=== PATIENT | female | born 1960 | race Caucasian/White ===

== ENCOUNTER 2017-05-06 13:36 | Emergency (ER) | payer BC ==
[~2017-05-06] VITALS: Ht 170.2 cm; Wt 102.1 kg
--- OUTSIDE RECORDS SUMMARY | 2017-05-06 13:46 | XMS REPORT ---
Author Author Yvonne Cassidy [facility] Address [address] [place], [place] [id number] Care Team Providers Care Vocational Ed Instructor Name Role Phone Yvonne Cassidy PCP Allergies and Adverse Reactions Name Reaction Notes Ceftin rash erythromycin rash PENICILLINS rash Plan of Treatment Planned Activity Comments Planned Date Planned Time Plan/Goal IMMUNOTHERAPY INJECTIONS 04/18/2015 12:00 AM IMMUNOTHERAPY INJECTIONS 03/27/2015 12:00 AM IMMUNOTHERAPY INJECTIONS 07/22/2015 12:00 AM IMMUNOTHERAPY INJECTIONS 11/11/2015 12:00 AM ELECTROCARDIOGRAM TRACING 04/23/2016 12:00 AM IMMUNOTHERAPY INJECTIONS 01/05/2012 12:00 AM THER/PROPH/DIAG INJ SC/IM 01/05/2012 12:00 AM IMMUNOTHERAPY INJECTIONS 09/30/2012 12:00 AM IMMUNOTHERAPY INJECTIONS 10/04/2012 12:00 AM IMMUNOTHERAPY INJECTIONS 10/11/2012 12:00 AM IMMUNOTHERAPY INJECTIONS 10/17/2012 12:00 AM IMMUNOTHERAPY INJECTIONS 10/18/2012 12:00 AM IMMUNOTHERAPY INJECTIONS 10/25/2012 12:00 AM IMMUNOTHERAPY INJECTIONS 11/01/2012 12:00 AM IMMUNOTHERAPY INJECTIONS 11/08/2012 12:00 AM IMMUNOTHERAPY INJECTIONS 11/15/2012 12:00 AM IMMUNOTHERAPY INJECTIONS 11/22/2012 12:00 AM IMMUNOTHERAPY INJECTIONS 12/06/2012 12:00 AM IMMUNOTHERAPY INJECTIONS 12/06/2012 12:00 AM IMMUNOTHERAPY INJECTIONS 12/20/2012 12:00 AM IMMUNOTHERAPY INJECTIONS 12/20/2012 12:00 AM IMMUNOTHERAPY INJECTIONS 01/12/2013 12:00 AM IMMUNOTHERAPY INJECTIONS 01/17/2013 12:00 AM IMMUNOTHERAPY INJECTIONS 01/24/2013 12:00 AM IMMUNOTHERAPY INJECTIONS 01/31/2013 12:00 AM IMMUNOTHERAPY INJECTIONS 02/06/2013 12:00 AM IMMUNOTHERAPY INJECTIONS 02/21/2013 12:00 AM IMMUNOTHERAPY INJECTIONS 03/02/2013 12:00 AM IMMUNOTHERAPY INJECTIONS 03/07/2013 12:00 AM IMMUNOTHERAPY INJECTIONS 03/09/2013 12:00 AM IMMUNOTHERAPY INJECTIONS 03/13/2013 12:00 AM IMMUNOTHERAPY INJECTIONS 03/21/2013 12:00 AM IMMUNOTHERAPY INJECTIONS 03/28/2013 12:00 AM IMMUNOTHERAPY INJECTIONS 04/04/2013 12:00 AM IMMUNOTHERAPY INJECTIONS 04/18/2013 12:00 AM IMMUNOTHERAPY INJECTIONS 05/01/2013 12:00 AM IMMUNOTHERAPY INJECTIONS 05/09/2013 12:00 AM IMMUNOTHERAPY INJECTIONS 05/15/2013 12:00 AM IMMUNOTHERAPY INJECTIONS 05/23/2013 12:00 AM IMMUNOTHERAPY INJECTIONS 05/30/2013 12:00 AM IMMUNOTHERAPY INJECTIONS 06/07/2013 12:00 AM dizziness IMMUNOTHERAPY INJECTIONS 02/27/2014 12:00 AM IMMUNOTHERAPY INJECTIONS 08/01/2014 12:00 AM IMMUNOTHERAPY INJECTIONS 10/15/2014 12:00 AM IMMUNOTHERAPY INJECTIONS 08/23/2014 12:00 AM IMMUNOTHERAPY INJECTIONS 09/06/2014 12:00 AM IMMUNOTHERAPY INJECTIONS 10/29/2014 12:00 AM IMMUNOTHERAPY INJECTIONS 11/05/2014 12:00 AM IMMUNOTHERAPY INJECTIONS 11/12/2014 12:00 AM IMMUNOTHERAPY INJECTIONS 11/19/2014 12:00 AM IMMUNOTHERAPY INJECTIONS 11/28/2014 12:00 AM IMMUNOTHERAPY INJECTIONS 12/13/2014 12:00 AM IMMUNOTHERAPY INJECTIONS 12/17/2014 12:00 AM IMMUNOTHERAPY INJECTIONS 12/24/2014 12:00 AM IMMUNOTHERAPY INJECTIONS 12/31/2014 12:00 AM IMMUNOTHERAPY INJECTIONS 01/07/2015 12:00 AM IMMUNOTHERAPY INJECTIONS 01/15/2015 12:00 AM IMMUNOTHERAPY INJECTIONS 01/21/2015 12:00 AM IMMUNOTHERAPY INJECTIONS 01/28/2015 12:00 AM IMMUNOTHERAPY INJECTIONS 02/04/2015 12:00 AM IMMUNOTHERAPY INJECTIONS 02/18/2015 12:00 AM IMMUNOTHERAPY INJECTIONS 02/25/2015 12:00 AM IMMUNOTHERAPY INJECTIONS 03/04/2015 12:00 AM IMMUNOTHERAPY INJECTIONS 03/19/2015 12:00 AM Medications Active Name Start Date Estimated Completion Date SIG Comments meloxicam 15 mg oral tablet 08/21/2014 TAKE 1 TABLET BY MOUTH ONCE DAILY triamcinolone acetonide 55 mcg nasal aerosol,spray 11/14/2014 USE 1-2 SPRAYS BY NASAL ROUTE DAILY for 30 days meloxicam 15 mg oral tablet 01/31/2015 TAKE 1 TABLET BY MOUTH ONCE DAILY triamcinolone acetonide 55 mcg nasal aerosol,spray 04/01/2015 USE 1 TO 2 SPRAYS INTO EACH NOSTRIL DAILY bupropion HCl 300 mg oral tablet extended release 24 hr 06/03/2015 TAKE 1 TABLET BY MOUTH EVERY DAY for 30 days ProAir HFA 90 mcg/actuation inhalation HFA aerosol inhaler 07/03/2015 INHALE 1 TO 2 PUFFS BY MOUTH EVERY 4 TO 6 HOURS NEEDED meloxicam 15 mg oral tablet 07/03/2015 TAKE 1 TABLET BY MOUTH ONCE DAILY meloxicam 15 mg oral tablet 12/09/2015 TAKE 1 TABLET BY MOUTH ONCE DAILY atenolol 25 mg oral tablet 02/12/2016 08/10/2016 take 1 tablet (25 mg) by oral route once daily for 30 days Saxenda 3 mg/0.5 mL (18 mg/3 mL) subcutaneous pen injector 02/20/2016 Inject 0.6mg daily for 1 week, then 1.2 mg daily for 1 week, then 1.8mg daily for 1 week, then 2.4 mg daily for 1 week, then 3mg daily there after, into abdomen, thigh Zyrtec-D 5-120 mg oral tablet extended release 12 hr 04/01/2016 take 1 tablet by oral route 2 times per day Singulair 10 mg oral tablet 04/23/2016 take 1 tablet (10 mg) by oral route once daily in the evening Synthroid 150 mcg oral tablet 04/27/2016 06/26/2016 TAKE 1 TABLET BY MOUTH ONCE DAILY Name Start Date Expiration Date SIG Comments hydrochlorothiazide 12.5 mg oral capsule 02/09/2011 03/11/2011 TAKE 1 CAPSULE BY MOUTH EVERY DAY Zithromax Z-Jonas 250 mg oral tablet 07/21/2011 07/26/2011 Take 2 tablets the first day (500 mg) followed by 1 tablet (250 mg) days 2-5. for 5 days Bactrim DS 800-160 mg oral tablet 09/08/2011 09/15/2011 take 1 tablet by oral route every 12 hours for 7 days Ocella 3-0.03 mg oral tablet 11/12/2011 12/10/2011 TAKE 1 TABLET BY MOUTH EVERY DAY Zithromax Z-Jonas 250 mg oral tablet 02/13/2013 02/18/2013 take 2 tablets (500 mg ) by oral route once daily for 1 day then 1 tablet (250 mg) by oral route once daily for 4 days Polytrim 10,000 unit- 1 mg/mL ophthalmic drops 02/13/2013 02/20/2013 instill 1 drop into affected eye(s) by ophthalmic route every 6 hours for 7 days bupropion HCl 300 mg oral tablet extended release 24 hr 05/03/20132012 TAKE 1 TABLET BY MOUTH EVERY DAY triamcinolone acetonide 55 mcg nasal aerosol,spray 06/19/2013 07/19/2013 USE 1- 2 SPRAYS BY NASAL ROUTE DAILY triamcinolone acetonide 55 mcg nasal aerosol,spray 04/11/2014 08/09/2014 USE 1 -2 SPRAYS BY NASAL ROUTE DAILY for 30 days bupropion HCl 300 mg oral tablet extended release 24 hr 05/16/20142014 TAKE 1 TABLET BY MOUTH EVERY DAY for 30 days Synthroid 175 mcg oral tablet 05/16/2014 05/11/2015 TAKE 1 TABLET BY MOUTH ONCE DAILY hydrochlorothiazide 12.5 mg oral capsule 09/19/2014 01/17/2015 take 1 capsule ( 12.5 mg) by oral route once daily for 30 days Neoprene 1 ankle brace 09/19/2014 10/03/2014 Wearing daily when ambulating promethazine-codeine 6.25-10 mg/5 mL oral syrup 10/02/2015 10/07/2015 take 5 milliliters by oral route every 6 hours as needed, not to exceed 30 mL in 24 hours for 5 days cyclobenzaprine 10 mg oral tablet 10/02/2015 10/07/2015 take 1 tablet by oral route 3 times a day as needed for 5 days Discontinued Name Start Date Discontinued Date SIG Comments promethazine-codeine 6.25-10 mg/5 mL oral syrup 07/21/2011 08/21/2011 take 5 milliliters by oral route every 6 hours as needed, not to exceed 30 mL in 24 hours Medrol (Jonas) 4 mg oral tablets,dose pack 08/06/2011 08/21/2011 take as directed promethazine-codeine 6.25-10 mg/5 mL oral syrup 09/08/2011 06/01/2012 take 5 milliliters by oral route every 4-6 hours as needed, not to exceed 30 mL in 24 hours Generess Fe 0.8mg-25mcg(24) and 75 mg (4) oral tablet,chewable 06/01/2012 chew 1 tablet by oral route once daily lisinopril 10 mg oral tablet 06/14/2013 06/14/2013 TAKE 1 TABLET BY MOUTH EVERY DAY uses mobic daily tramadol 50 mg oral tablet 08/19/2013 09/08/2013 take 1 tablet (50 mg) by oral route every 4-6 hours as needed Exforge HCT 5-160-12.5 mg oral tablet 10/10/2013 02/07/2014 take 1 tablet by oral route once daily for 30 days meloxicam 15 mg oral tablet 01/01/2014 05/09/2014 TAKE 1 TABLET BY MOUTH ONCE DAILY oxybutynin chloride 5 mg oral tablet extended release 24hr 08/22/2014 take 1 tablet (5 mg) by oral route once daily Claritin-D 24 Hour 10-240 mg oral tablet extended release 24 hr 08/23/20142014 take 1 tablet by oral route once daily amlodipine 5 mg oral tablet 06/19/2014 09/19/2014 take 1 tablet (5 mg) by oral route once daily for 30 days ProAir HFA 90 mcg/actuation inhalation HFA aerosol inhaler 08/16/20142014 INHALE 1 TO 2 PUFFS BY MOUTH EVERY 4 TO 6 HOURS NEEDED Percocet 5-325 mg oral tablet 08/22/2014 09/13/2014 take 1 tablet by oral route every 4-6 hours as needed phentermine 37.5 mg oral tablet 01/08/2016 02/12/2016 take 1 tablet (37.5 mg) by oral route once daily before breakfast Qsymia 7.5-46 mg oral capsule, ER multiphase 24 hr 02/13/2016 02/20/2016 take 1 capsule by oral route once daily in the morning for 30 days prednisone 20 mg oral tablet 03/04/2016 04/01/2016 take 1 tablet by oral route daily Problem List Description Status Onset Asthma Active Hypertension Active hypothyroid Active Vitamin D deficiency Active Hypothyroidism Active 05/18/2013 Stress incontinence, female Active 05/18/2013 Urge incontinence Active 05/18/2013 Breast Lump, right Active 12/31/2014 Vital Signs Date Time BP-Sys(mm[Hg] BP-Karina(mm[Hg]) HR(bpm) RR(rpm) Temp WT HT HC BMI BSA BMI Percentile O2 Sat(%) 04/23/2016 2:16:00 PM 128 mmHg 76 mmHg 80 bpm 18 rpm 97.3 F 207.6 lbs 66.5 in 33.01 kg/m2 2.10 m2 97 % 04/01/2016 9:47:00 AM 126 mmHg 72 mmHg 84 bpm 18 rpm 97.9 F 209.5 lbs 66.5 in 33.3073 kg/m 2.1116 m 97 % 03/04/2016 2:48:00 PM 142 mmHg 84 mmHg 80 bpm 19 rpm 98.4 F 226.2 lbs 66.5 in 35.96 kg/m2 2.19 m2 97 % 02/12/2016 3:02:00 PM 132 mmHg 72 mmHg 71 bpm 18 rpm 97.8 F 214.375 lbs 66.5 in 34.0823 kg/m 2.136 m 98 % 01/08/2016 3:21:00 PM 132 mmHg 74 mmHg 68 bpm 18 rpm 97.4 F 222.062 lbs 66.5 in 35.30 kg/m2 2.17 m2 100 % 12/02/2015 3:06:00 PM 102 mmHg 72 mmHg 11/29/2015 3:32:00 PM 120 mmHg 70 mmHg 69 bpm 98 % 11/28/2015 4:07:00 PM 140 mmHg 84 mmHg 11/27/2015 2:47:00 PM 142 mmHg 88 mmHg 72 bpm 18 rpm 97.7 F 230 lbs 66.5 in 36.57 kg/m2 2.21 m2 98 % 11/25/2015 11:26:00 AM 160 mmHg 90 mmHg 75 bpm 16 rpm 97.6 F 241 lbs 66.5 in 38.3153 kg/m 2.2647 m 97 % 10/29/2015 3:44:00 PM 122 mmHg 86 mmHg 67 bpm 19 rpm 96.7 F 243 lbs 66.5 in 38.63 kg/m2 2.27 m2 99 % 10/02/2015 3:29:00 PM 150 mmHg 80 mmHg 71 bpm 16 rpm 97 F 247 lbs 66.5 in 39.2692 kg/m 2.2928 m 99 % 05/29/2015 3:21:00 PM 146 mmHg 71 mmHg 66 bpm 98.5 F 236 lbs 66.5 in 37.52 kg/m2 2.24 m2 03/19/2015 3:36:00 PM 130 mmHg 72 mmHg 77 bpm 20 rpm 97.5 F 238.8 lbs 66.5 in 37.9655 kg/m 2.2544 m 98 % 12/31/2014 3:30:00 PM 136 mmHg 68 mmHg 62 bpm 16 rpm 98 F 231 lbs 66.5 in 36.73 kg/m2 2.22 m2 99 % 10/11/2014 3:45:00 PM 132 mmHg 77 mmHg 66 bpm 97.6 F 233.375 lbs 66.5 in 37.103 kg/m 2.2286 m 09/19/2014 11:11:00 AM 136 mmHg 78 mmHg 88 bpm 18 rpm 98.3 F 233 lbs 66.5 in 37.04 kg/m2 2.23 m2 99 % 09/13/2014 4:12:00 PM 170 mmHg 80 mmHg 92 bpm 98.4 F 231.375 lbs 66.5 in 36.7851 kg/m 2.2191 m 99 % 08/22/2014 3:08:00 PM 143 mmHg 82 mmHg 71 bpm 97.6 F 237 lbs 66.5 in 37.68 kg/m2 2.25 m2 98 % 05/09/2014 3:24:00 PM 152 mmHg 87 mmHg 88 bpm 96.6 F 233.375 lbs 66.5 in 37.103 kg/m 2.2286 m 04/30/2014 3:40:00 PM 138 mmHg 72 mmHg 78 bpm 181 rpm 98.7 F 235 lbs 66.5 in 37.36 kg/m2 2.24 m2 97 % 02/13/2014 2:37:00 PM 149 mmHg 86 mmHg 80 bpm 97.9 F 226.25 lbs 66.5 in 35.9703 kg/m 2.1943 m 02/07/2014 3:54:00 PM 154 mmHg 81 mmHg 80 bpm 97.8 F 226.5 lbs 66.5 in 36.01 kg/m2 2.20 m2 09/18/2013 9:51:00 AM 130 mmHg 70 mmHg 86 bpm 16 rpm 96.8 F 227 lbs 66.5 in 36.0895 kg/m 2.198 m 97 % 09/08/2013 1:02:00 PM 148 mmHg 80 mmHg 91 bpm 98 F 230.375 lbs 66.5 in 36.63 kg/m2 2.21 m2 08/18/2013 6:04:00 PM 122 mmHg 80 mmHg 75 bpm 22 rpm 98.5 F 232 lbs 66.5 in 36.8844 kg/m 2.2221 m 96 % 06/14/2013 1:40:00 PM 118 mmHg 75 mmHg 88 bpm 18 rpm 98.4 F 228 lbs 66.5 in 36.25 kg/m2 2.20 m2 97 % 06/07/2013 4:13:00 PM 130 mmHg 82 mmHg 81 bpm 96.8 F 06/02/2013 9:07:00 AM 143 mmHg 77 mmHg 82 bpm 97.9 F 06/01/2013 1:45:00 PM 145 mmHg 86 mmHg 95 bpm 97.5 F 232 lbs 67 in 36.336 kg/m 2.2304 m 99 % 05/18/2013 2:06:00 PM 165 mmHg 94 mmHg 84 bpm 98 F 222.25 lbs 67 in 34.81 kg/m2 2.18 m2 02/13/2013 9:30:00 AM 130 mmHg 80 mmHg 90 bpm 20 rpm 97.9 F 229 lbs 67.5 in 35.3367 kg/m 2.2242 m 97 % 06/01/2012 3:21:00 PM 120 mmHg 70 mmHg 86 bpm 16 rpm 99.2 F 224.125 lbs 97 % 11/27/2011 11:10:00 AM 136 mmHg 80 mmHg 99 bpm 16 rpm 96.7 F 219 lbs 98 % 09/08/2011 8:28:00 AM 128 mmHg 64 mmHg 68 bpm 18 rpm 98.1 F 218.5 lbs 67.5 in 33.72 kg/m2 2.17 m2 08/21/2011 8:32:00 AM 122 mmHg 80 mmHg 79 bpm 16 rpm 97.8 F 219.25 lbs 67.5 in 33.8322 kg/m 2.1763 m 99 % 08/06/2011 3:46:00 PM 122 mmHg 80 mmHg 88 bpm 20 rpm 97.4 F 218 lbs 67.5 in 33.64 kg/m2 2.17 m2 07/21/2011 9:52:00 AM 142 mmHg 70 mmHg 111 bpm 16 rpm 96.6 F 216 lbs 96 % 03/30/2011 3:52:00 PM 140 mmHg 88 mmHg 97 bpm 16 rpm 97.9 F 210 lbs 97 % 02/25/2011 1:44:00 PM 148 mmHg 86 mmHg 87 bpm 16 rpm 98 F 213 lbs 67.5 in 32.8678 kg/m 2.1451 m 98 % 12/30/2010 11:22:00 AM 162 mmHg 100 mmHg 107 bpm 16 rpm 97.4 F 98 % 11/12/2010 3:33:00 PM 136 mmHg 84 mmHg 88 bpm 16 rpm 97.5 F 213 lbs 98 % 06/03/2010 10:50:00 AM 140 mmHg 85 mmHg 83 bpm 98 F 220.125 lbs 05/26/2010 3:29:00 PM 122 mmHg 88 mmHg 88 bpm 16 rpm 97.4 F 222.375 lbs 11/07/2009 2:49:00 PM 130 mmHg 84 mmHg 70 bpm 16 rpm 98.4 F 222 lbs 67.5 in 34.26 kg/m2 2.19 m2 Social History Name Description Comments Attended some college Alcohol Use - Rare Denies illicit substance abuse Moderate Amount of Exercise (1-3 times weekly) Health care Did not serve in Children Lives with spouse Tobacco Never smoker 01/08/2016 - History of Procedures Date Ordered Description Order Status 04/09/2015 12:00 AM IMMUNOTHERAPY INJECTIONS Reviewed 04/23/2015 12:00 AM IMMUNOTHERAPY INJECTIONS Reviewed 03/25/2011 12:00 AM IMMUNOTHERAPY INJECTIONS Reviewed 04/30/2015 12:00 AM IMMUNOTHERAPY INJECTIONS Reviewed 05/09/2015 12:00 AM IMMUNIZATION ADMIN Reviewed 05/09/2015 12:00 AM FLU VACC 4 SONDRA 3 YRS PLUS IM Reviewed 04/02/2011 12:00 AM IMMUNOTHERAPY INJECTIONS Reviewed 05/14/2015 12:00 AM IMMUNOTHERAPY INJECTIONS Reviewed 04/08/2011 12:00 AM IMMUNOTHERAPY INJECTIONS Reviewed 05/29/2015 12:00 AM IMMUNOTHERAPY INJECTIONS Reviewed 06/12/2015 12:00 AM MAMMOGRAM SCREENING Returned 05/29/2015 12:00 AM CYTOPATH TBS C/V MANUAL Returned 05/29/2015 12:00 AM ASSAY THYROID STIM HORMONE Returned 05/29/2015 12:00 AM LIPID PANEL Returned 05/29/2015 12:00 AM MAMMOGRAM BOTH BREASTS Reviewed 05/29/2015 12:00 AM SPECIMEN HANDLING OFFICE-LAB Reviewed 05/29/2015 12:00 AM BIOPSY OF VAGINA Returned 06/04/2015 12:00 AM IMMUNOTHERAPY INJECTIONS Reviewed 04/15/2011 12:00 AM IMMUNOTHERAPY INJECTIONS Reviewed 06/10/2015 12:00 AM IMMUNOTHERAPY INJECTIONS Reviewed 06/17/2015 12:00 AM IMMUNOTHERAPY INJECTIONS Reviewed 06/26/2015 12:00 AM IMMUNOTHERAPY INJECTIONS Reviewed 07/01/2015 12:00 AM IMMUNOTHERAPY INJECTIONS Reviewed 07/09/2015 12:00 AM IMMUNOTHERAPY INJECTIONS Reviewed 04/29/2011 12:00 AM IMMUNOTHERAPY INJECTIONS Reviewed 07/29/2015 12:00 AM IMMUNOTHERAPY INJECTIONS Reviewed 05/06/2011 12:00 AM IMMUNOTHERAPY INJECTIONS Reviewed 08/14/2015 12:00 AM IMMUNOTHERAPY INJECTIONS Reviewed 08/19/2015 12:00 AM IMMUNOTHERAPY INJECTIONS Reviewed 05/14/2011 12:00 AM IMMUNOTHERAPY INJECTIONS Reviewed 05/20/2011 12:00 AM IMMUNOTHERAPY INJECTIONS Reviewed 09/05/2015 12:00 AM IMMUNOTHERAPY INJECTIONS Reviewed 09/11/2015 12:00 AM IMMUNOTHERAPY INJECTIONS Reviewed 05/27/2011 12:00 AM IMMUNOTHERAPY INJECTIONS Reviewed 06/03/2011 12:00 AM IMMUNOTHERAPY INJECTIONS Reviewed 10/01/2015 12:00 AM IMMUNOTHERAPY INJECTIONS Reviewed 06/09/2011 12:00 AM IMMUNOTHERAPY INJECTIONS Reviewed 10/09/2015 12:00 AM IMMUNOTHERAPY INJECTIONS Reviewed 10/15/2015 12:00 AM IMMUNOTHERAPY INJECTIONS Reviewed 06/17/2011 12:00 AM IMMUNOTHERAPY INJECTIONS Reviewed 10/21/2015 12:00 AM IMMUNOTHERAPY INJECTIONS Reviewed 10/28/2015 12:00 AM IMMUNOTHERAPY INJECTIONS Reviewed 11/04/2015 12:00 AM IMMUNOTHERAPY INJECTIONS Reviewed 11/18/2015 12:00 AM IMMUNOTHERAPY INJECTIONS Reviewed 07/07/2011 12:00 AM IMMUNOTHERAPY INJECTIONS Reviewed 11/27/2015 12:00 AM IMMUNOTHERAPY INJECTIONS Reviewed 11/25/2015 12:00 AM RADEX WRIST COMPLETE MINIMUM 3 VIEWS Returned 12/02/2015 12:00 AM IMMUNOTHERAPY INJECTIONS Reviewed 12/09/2015 12:00 AM IMMUNOTHERAPY INJECTIONS Reviewed 07/16/2011 12:00 AM IMMUNOTHERAPY INJECTIONS Reviewed 07/16/2011 12:00 AM IMMUNOTHERAPY INJECTIONS Reviewed 12/25/2015 12:00 AM IMMUNOTHERAPY INJECTIONS Reviewed 07/28/2011 12:00 AM IMMUNOTHERAPY INJECTIONS Reviewed 11/29/2015 12:00 AM Blood Pressure Check-no charge Reviewed 01/15/2016 12:00 AM IMMUNOTHERAPY INJECTIONS Reviewed 08/06/2011 12:00 AM THER/PROPH/DIAG INJ SC/IM Reviewed 08/06/2011 12:00 AM IMMUNOTHERAPY INJECTIONS Reviewed 01/27/2016 12:00 AM IMMUNOTHERAPY INJECTIONS Reviewed 08/12/2011 12:00 AM IMMUNOTHERAPY INJECTIONS Reviewed 02/12/2016 12:00 AM IMMUNOTHERAPY INJECTIONS Reviewed 02/19/2016 12:00 AM IMMUNOTHERAPY INJECTIONS Reviewed 08/21/2011 12:00 AM THER/PROPH/DIAG INJ SC/IM Reviewed 08/21/2011 12:00 AM Depo-Medrol 40 mg [facility]#[id number] Reviewed 03/02/2016 12:00 AM IMMUNOTHERAPY INJECTIONS Reviewed 03/06/2016 12:00 AM IMMUNOTHERAPY INJECTIONS Reviewed 03/11/2016 12:00 AM IMMUNOTHERAPY INJECTIONS Reviewed 03/17/2016 12:00 AM IMMUNOTHERAPY INJECTIONS Reviewed 09/08/2011 12:00 AM IMMUNOTHERAPY INJECTIONS Reviewed 03/26/2016 12:00 AM IMMUNOTHERAPY INJECTIONS Reviewed 04/01/2016 12:00 AM IMMUNOTHERAPY INJECTIONS Reviewed 04/07/2016 12:00 AM IMMUNOTHERAPY INJECTIONS Reviewed 04/13/2016 12:00 AM IMMUNOTHERAPY INJECTIONS Reviewed 04/23/2016 12:00 AM IMMUNOTHERAPY INJECTIONS Reviewed 04/23/2016 12:00 AM COMPLETE CBC W/AUTO DIFF WBC Returned 04/23/2016 12:00 AM COMPREHEN METABOLIC PANEL Returned 04/23/2016 12:00 AM LIPID PANEL Returned 04/23/2016 12:00 AM ASSAY THYROID STIM HORMONE Returned 04/23/2016 12:00 AM MRI BRAIN STEM W/O & W/DYE Returned 09/24/2011 12:00 AM IMMUNOTHERAPY INJECTIONS Reviewed 09/24/2011 12:00 AM IMMUNOTHERAPY INJECTIONS Reviewed 09/24/2011 12:00 AM IMMUNOTHERAPY INJECTIONS Reviewed 04/29/2016 12:00 AM IMMUNOTHERAPY INJECTIONS Reviewed 10/01/2011 12:00 AM IMMUNOTHERAPY INJECTIONS Reviewed 10/06/2011 12:00 AM IMMUNOTHERAPY INJECTIONS Reviewed 10/13/2011 12:00 AM IMMUNOTHERAPY INJECTIONS Reviewed 10/20/2011 12:00 AM IMMUNOTHERAPY INJECTIONS Reviewed 10/29/2011 12:00 AM IMMUNOTHERAPY INJECTIONS Reviewed 11/03/2011 12:00 AM IMMUNOTHERAPY INJECTIONS Reviewed 11/10/2011 12:00 AM IMMUNOTHERAPY INJECTIONS Reviewed 11/17/2011 12:00 AM IMMUNOTHERAPY INJECTIONS Reviewed 11/27/2011 12:00 AM THER/PROPH/DIAG INJ SC/IM Reviewed 11/27/2011 12:00 AM Depo-Medrol 40 mg [facility]#[id number] Reviewed 12/01/2011 12:00 AM IMMUNOTHERAPY INJECTIONS Reviewed 12/08/2011 12:00 AM IMMUNOTHERAPY INJECTIONS Reviewed 12/18/2011 12:00 AM IMMUNOTHERAPY INJECTIONS Reviewed 12/22/2011 12:00 AM IMMUNOTHERAPY INJECTIONS Reviewed 12/29/2011 12:00 AM IMMUNOTHERAPY INJECTIONS Reviewed 01/12/2012 12:00 AM IMMUNOTHERAPY INJECTIONS Reviewed 01/26/2012 12:00 AM IMMUNOTHERAPY INJECTIONS Reviewed 02/02/2012 12:00 AM IMMUNOTHERAPY INJECTIONS Reviewed 02/08/2012 12:00 AM IMMUNOTHERAPY INJECTIONS Reviewed 02/15/2012 12:00 AM IMMUNOTHERAPY INJECTIONS Reviewed 02/25/2012 12:00 AM IMMUNOTHERAPY INJECTIONS Reviewed 03/01/2012 12:00 AM IMMUNOTHERAPY INJECTIONS Reviewed 03/01/2012 12:00 AM IMMUNOTHERAPY INJECTIONS Reviewed 03/08/2012 12:00 AM IMMUNOTHERAPY INJECTIONS Reviewed 03/15/2012 12:00 AM IMMUNOTHERAPY INJECTIONS Reviewed 03/22/2012 12:00 AM IMMUNOTHERAPY INJECTIONS Reviewed 03/29/2012 12:00 AM IMMUNOTHERAPY INJECTIONS Reviewed 04/05/2012 12:00 AM IMMUNOTHERAPY INJECTIONS Reviewed 04/21/2012 12:00 AM IMMUNOTHERAPY INJECTIONS Reviewed 04/26/2012 12:00 AM IMMUNOTHERAPY INJECTIONS Reviewed 05/03/2012 12:00 AM IMMUNOTHERAPY INJECTIONS Reviewed 05/10/2012 12:00 AM IMMUNOTHERAPY INJECTIONS Reviewed 05/17/2012 12:00 AM IMMUNOTHERAPY INJECTIONS Reviewed 05/18/2012 12:00 AM IMMUNOTHERAPY INJECTIONS Reviewed 05/24/2012 12:00 AM IMMUNOTHERAPY INJECTIONS Reviewed 06/01/2012 12:00 AM CYTOPATH C/V MANUAL Returned 06/01/2012 12:00 AM SMEAR WET MOUNT SALINE/INK Returned 06/07/2012 12:00 AM IMMUNOTHERAPY INJECTIONS Reviewed 06/14/2012 12:00 AM IMMUNOTHERAPY INJECTIONS Reviewed 06/21/2012 12:00 AM IMMUNOTHERAPY INJECTIONS Reviewed 07/13/2012 12:00 AM IMMUNOTHERAPY INJECTIONS Reviewed 07/26/2012 12:00 AM IMMUNOTHERAPY INJECTIONS Reviewed 08/03/2012 12:00 AM IMMUNOTHERAPY INJECTIONS Reviewed 08/05/2012 12:00 AM IMMUNOTHERAPY INJECTIONS Reviewed 08/10/2012 12:00 AM IMMUNOTHERAPY INJECTIONS Reviewed 08/16/2012 12:00 AM IMMUNOTHERAPY INJECTIONS Reviewed 08/23/2012 12:00 AM IMMUNOTHERAPY INJECTIONS Reviewed 08/31/2012 12:00 AM IMMUNOTHERAPY INJECTIONS Reviewed 09/05/2012 12:00 AM IMMUNOTHERAPY INJECTIONS Reviewed 09/22/2012 12:00 AM IMMUNOTHERAPY INJECTIONS Reviewed 11/07/2009 12:00 AM LIPID PANEL Reviewed 11/07/2009 12:00 AM ASSAY THYROID STIM HORMONE Reviewed 11/07/2009 12:00 AM COMPLETE CBC W/AUTO DIFF WBC Reviewed 11/07/2009 12:00 AM COMPREHEN METABOLIC PANEL Reviewed 11/07/2009 12:00 AM CYTOPATH C/V MANUAL Reviewed 02/13/2013 12:00 AM THER/PROPH/DIAG INJ SC/IM Reviewed 02/13/2013 12:00 AM Decadron, Per 1 Mg [facility]# [id number] Reviewed 02/13/2013 12:00 AM Depo-Medrol, Per 80 Mg [facility]#[id number] Reviewed 06/05/2013 12:00 AM MAMMOGRAM SCREENING Returned 05/18/2013 12:00 AM CYTOPATH TBS C/V MANUAL Returned 05/18/2013 12:00 AM SPECIMEN HANDLING OFFICE-LAB Reviewed 05/18/2013 12:00 AM ASSAY OF GONADOTROPIN (FSH) Returned 05/18/2013 12:00 AM URINALYSIS AUTO W/SCOPE Returned 05/18/2013 12:00 AM ASSAY THYROID STIM HORMONE Returned 05/18/2013 12:00 AM GLYCOSYLATED HEMOGLOBIN TEST Returned 05/18/2013 12:00 AM VIT D 1 25-DIHYDROXY Returned 05/18/2013 12:00 AM MAMMOGRAM SCREENING Returned 06/01/2013 12:00 AM INSERT PESSARY/OTHER DEVICE Reviewed 06/01/2013 12:00 AM PESSARY, NON RUBBER, ANY TYPE Reviewed 06/14/2013 12:00 AM METABOLIC PANEL TOTAL CA Reviewed 06/14/2013 12:00 AM COMPLETE CBC W/AUTO DIFF WBC Reviewed 06/14/2013 12:00 AM IMMUNOTHERAPY ONE INJECTION Returned 06/14/2013 12:00 AM REMOVAL OF SKIN TAGS <W/15 Returned 06/14/2013 12:00 AM DESTRUCT B9 LESION 1-14 Returned 06/14/2013 12:00 AM DESTRUCT PREMALG LES 2-14 Returned 06/19/2013 12:00 AM IMMUNOTHERAPY INJECTIONS Reviewed 06/14/2013 12:00 AM IMMUNOTHERAPY INJECTIONS Returned 08/08/2013 12:00 AM IMMUNOTHERAPY INJECTIONS Returned 08/14/2013 12:00 AM IMMUNOTHERAPY INJECTIONS Returned 09/05/2013 12:00 AM IMMUNOTHERAPY INJECTIONS Reviewed 09/13/2013 12:00 AM US EXAM PELVIC COMPLETE Returned 09/08/2013 12:00 AM ASSAY OF MAGNESIUM Returned 09/08/2013 12:00 AM ASSAY OF SERUM POTASSIUM Returned 07/04/2013 12:00 AM IMMUNOTHERAPY INJECTIONS Returned 10/04/2013 12:00 AM IMMUNOTHERAPY INJECTIONS Reviewed 10/25/2013 12:00 AM IMMUNOTHERAPY INJECTIONS Reviewed 06/26/2013 12:00 AM IMMUNOTHERAPY INJECTIONS Returned 07/20/2013 12:00 AM IMMUNOTHERAPY INJECTIONS Returned 08/01/2013 12:00 AM IMMUNOTHERAPY INJECTIONS Returned 08/21/2013 12:00 AM IMMUNOTHERAPY INJECTIONS Returned 08/29/2013 12:00 AM IMMUNOTHERAPY INJECTIONS Returned 09/15/2013 12:00 AM IMMUNOTHERAPY INJECTIONS Reviewed 10/31/2013 12:00 AM IMMUNOTHERAPY INJECTIONS Reviewed 11/07/2013 12:00 AM IMMUNOTHERAPY INJECTIONS Reviewed 11/14/2013 12:00 AM IMMUNOTHERAPY INJECTIONS Reviewed 11/21/2013 12:00 AM IMMUNOTHERAPY INJECTIONS Reviewed 11/28/2013 12:00 AM IMMUNOTHERAPY INJECTIONS Reviewed 12/05/2013 12:00 AM IMMUNOTHERAPY INJECTIONS Reviewed 12/12/2013 12:00 AM IMMUNOTHERAPY INJECTIONS Reviewed 12/18/2013 12:00 AM IMMUNOTHERAPY INJECTIONS Returned 05/26/2010 12:00 AM ASSAY THYROID STIM HORMONE Reviewed 05/26/2010 12:00 AM MAMMOGRAM SCREENING Reviewed 05/26/2010 12:00 AM IMMUNIZATION ADMIN Reviewed 05/26/2010 12:00 AM FLU VACCINE 3 YRS & > IM Reviewed 06/03/2010 12:00 AM THER/PROPH/DIAG INJ SC/IM Reviewed 06/03/2010 12:00 AM Depo-Medrol 120 Mg Im ILEANA Reviewed 12/26/2013 12:00 AM IMMUNOTHERAPY ONE INJECTION Reviewed 01/02/2014 12:00 AM IMMUNOTHERAPY ONE INJECTION Returned 01/10/2014 12:00 AM IMMUNOTHERAPY ONE INJECTION Returned 01/10/2014 12:00 AM IMMUNOTHERAPY ONE INJECTION Returned 01/17/2014 12:00 AM IMMUNOTHERAPY ONE INJECTION Reviewed 02/06/2014 12:00 AM IMMUNOTHERAPY ONE INJECTION Reviewed 02/13/2014 2:52 PM URINE TEST Reviewed 02/13/2014 12:00 AM BIOPSY OF UTERUS LINING Returned 02/13/2014 12:00 AM BX DONE W/COLPOSCOPY ADD-ON Returned 02/13/2014 12:00 AM URINALYSIS Returned 02/13/2014 12:00 AM IMMUNOTHERAPY ONE INJECTION Reviewed 02/20/2014 12:00 AM IMMUNOTHERAPY ONE INJECTION Reviewed 03/13/2014 12:00 AM IMMUNOTHERAPY INJECTIONS Reviewed 03/20/2014 12:00 AM IMMUNOTHERAPY ONE INJECTION Reviewed 2014 12:00 AM IMMUNOTHERAPY INJECTIONS Returned 05/03/2014 12:00 AM MAMMOGRAM BOTH BREASTS Returned 05/08/2014 12:00 AM IMMUNOTHERAPY INJECTIONS Returned 05/09/2014 12:00 AM CYTOPATH TBS C/V MANUAL Returned 05/09/2014 12:00 AM SPECIMEN HANDLING OFFICE-LAB Reviewed 05/17/2014 12:00 AM US EXAM PELVIC COMPLETE Returned 05/17/2014 12:00 AM TRANSVAGINAL US NON-OB Returned 04/30/2014 12:00 AM METABOLIC PANEL TOTAL CA Returned 04/30/2014 12:00 AM COMPLETE CBC W/AUTO DIFF WBC Returned 04/30/2014 12:00 AM ASSAY THYROID STIM HORMONE Returned 04/30/2014 12:00 AM ASSAY OF MAGNESIUM Returned 06/12/2014 12:00 AM IMMUNOTHERAPY INJECTIONS Returned 03/07/2014 12:00 AM IMMUNOTHERAPY INJECTIONS Reviewed 07/16/2014 12:00 AM IMMUNOTHERAPY ONE INJECTION Returned 07/16/2014 12:00 AM IMMUNOTHERAPY INJECTIONS Returned 07/09/2014 12:00 AM IMMUNOTHERAPY INJECTIONS Returned 05/15/2014 12:00 AM IMMUNOTHERAPY INJECTIONS Returned 05/21/2014 12:00 AM IMMUNOTHERAPY INJECTIONS Returned 05/30/2014 12:00 AM IMMUNOTHERAPY INJECTIONS Returned 06/20/2014 12:00 AM IMMUNOTHERAPY INJECTIONS Returned 06/28/2014 12:00 AM IMMUNOTHERAPY INJECTIONS Returned 07/03/2014 12:00 AM IMMUNOTHERAPY INJECTIONS Returned 04/02/2014 12:00 AM IMMUNOTHERAPY INJECTIONS Reviewed 04/10/2014 12:00 AM IMMUNOTHERAPY INJECTIONS Returned 07/25/2014 12:00 AM IMMUNOTHERAPY INJECTIONS Returned 08/07/2014 12:00 AM IMMUNOTHERAPY INJECTIONS Returned 08/16/2014 12:00 AM IMMUNOTHERAPY INJECTIONS Returned 08/22/2014 12:00 AM COMPLETE CBC W/AUTO DIFF WBC Returned 08/22/2014 12:00 AM COMPREHEN METABOLIC PANEL Returned 08/22/2014 12:00 AM Type and screen Returned 08/22/2014 12:00 AM PROTHROMBIN TIME Returned 11/12/2010 12:00 AM CYTOPATH C/V MANUAL Reviewed 11/12/2010 12:00 AM ASSAY THYROID STIM HORMONE Reviewed 10/04/2014 12:00 AM IMMUNOTHERAPY INJECTIONS Reviewed 10/09/2014 12:00 AM IMMUNOTHERAPY INJECTIONS Reviewed 10/24/2014 12:00 AM IMMUNOTHERAPY INJECTIONS Reviewed 12/30/2010 12:00 AM THER/PROPH/DIAG INJ SC/IM Reviewed 12/30/2010 12:00 AM Depo-Medrol 120 Mg Im ILEANA Reviewed 12/31/2014 12:00 AM MAMMOGRAM BOTH BREASTS Returned 12/31/2014 12:00 AM Breast ultrasonography Reviewed 12/31/2014 12:00 AM Breast ultrasound Returned 12/31/2014 12:00 AM COMPUTER DX MAMMOGRAM ADD-ON Reviewed 02/11/2015 12:00 AM IMMUNOTHERAPY INJECTIONS Reviewed 02/11/2015 12:00 AM IMMUNOTHERAPY ONE INJECTION Reviewed 04/01/2015 12:00 AM IMMUNOTHERAPY INJECTIONS Reviewed Results Summary Data and Description Results 11/07/2009 2:59 PM Colonoscopy-Women and Men over 50 Declined Mammogram -Women over 40 Normal Pap Smear Negative 11/07/2009 4:28 PM WET PREP NO TRICHOMONADS SEEN 11/12/2010 4:50 PM WET PREP NO TRICHOMONADS SEEN 06/01/2012 4:58 PM WET PREP NO TRICH SEEN CLUE CELLS NONE SEEN 02/13/2014 2:56 PM HCG Ur Ql Negative 02/13/2014 3:37 PM COLOR YELLOW APPEARANCE CLEAR SPEC GRAV >=1.030 pH 5.5 PROTEIN NEGATIVE GLUCOSE NEGATIVE KETONE NEGATIVE BILIRUBIN NEGATIVE BLOOD SMALL NITRITE NEGATIVE LEUK SCREEN NEGATIVE CASTS/LPF NEGATIVE CRYSTALS TRACE CA OX MUCOUS THRDS NEGATIVE BACTERIA FEW EPITH CELLS FEW SQUAMOUS TRICHOMONAS NEGATIVE YEAST NEGATIVE 08/22/2014 4:05 PM WBC 6.4 RBC 4.70 HGB 15.20 g/dLHCT 44.20 %MCV 94.0 fLMCH 32.30 pgMCHC 34.40 g/dLRDW CV 12.90 %MPV 10.70 fLPLT 255 %NEUT 54.70 %%LYMP 32.0 %%MONO 8.90 %%EOS 3.10 %%BASO 1.30 %#NEUT 3.50 #LYMP 2.05 #MONO 0.57 #EOS 0.20 #BASO 0.08 GLUCOSE 89.0 mg/dLSODIUM 141.0 mmol/LPOTASSIUM 3.90 mmol/ LCHLORIDE 103.0 mmol/LCO2 26.0 mmol/LBUN 15.0 mg/dLCREATININE 0.80 mg/dLSGOT/ AST 23.0 IU/LSGPT/ALT 23.0 IU/LALK PHOS 99.0 IU/LTOTAL PROTEIN 8.0 g/dLALBUMIN 4.70 g/dLTOTAL BILI 0.50 mg/dLCALCIUM 10.10 mg/dLeGFR >60 mL/min/1.73 [id number] 10.0 secsINR 1.0 PTT 28.20 secs 08/28/2014 7:10 AM TEST UR NEGATIVE 08/29/2014 6:45 AM WBC 9.2 RBC 4.08 HGB 13.20 g/dLHCT 39.30 %MCV 96.0 fLMCH 32.40 pgMCHC 33.60 g/dLRDW CV 13.10 %MPV 10.30 fLPLT 234 GLUCOSE 116.0 mg/ dLSODIUM 140.0 mmol/LPOTASSIUM 3.50 mmol/LCHLORIDE 106.0 mmol/LCO2 23.0 mmol/ LBUN 7.0 mg/dLCREATININE 0.70 mg/dLCALCIUM 8.50 mg/dLeGFR >60 mL/min/1.73 m2 06/17/2015 7:45 AM TRIGLYCERIDES 136.0 mg/dLCHOLESTEROL 210.0 mg/dLHDL 46.0 mg /dLLDL (CALC) 137.0 mg/dLTSH 1.080 uIU/mL 04/25/2016 8:32 AM TSH <0.06 uIU/mLGLUCOSE 101.0 mg/dLSODIUM 140.0 mmol/ LPOTASSIUM 4.30 mmol/LCHLORIDE 105.0 mmol/LCO2 24.0 mmol/LBUN 14.0 mg/ dLCREATININE 0.80 mg/dLSGOT/AST 19.0 IU/LSGPT/ALT 21.0 IU/LALK PHOS 104.0 IU/ LTOTAL PROTEIN 7.50 g/dLALBUMIN 4.50 g/dLTOTAL BILI 0.80 mg/dLCALCIUM 9.90 mg/ dLeGFR >60 mL/min/1.73mTRIGLYCERIDES 90.0 mg/dLCHOLESTEROL 187.0 mg/dLHDL 40.0 mg/dLLDL (CALC) 129.0 mg/dLWBC 6.5 RBC 4.75 HGB 15.0 g/dLHCT 43.0 %MCV 91.0 fLMCH 31.60 pgMCHC 34.90 g/dLRDW CV 12.10 %MPV 10.10 fLPLT 263 %NEUT 58.90 %%LYMP 25.70 %%MONO 10.60 %%EOS 3.50 %%BASO 1.10 %#NEUT 3.86 #LYMP 1.68 #MONO 0.69 #EOS 0.23 #BASO 0.07 History Of Immunizations Name Date Admin Mfg Name Mfg Code Trade Name Lot# Route Inj Vis Given Vis Pub CVX Influenza 06/02/2010 sanofi pasteur PMC Fluzone [id number] Intramuscular Left Deltoid 06/02/2010 02/25/2010 999 Influenza 05/09/2015 sanofi pasteur PMC Fluzone [id number] Intramuscular Left Deltoid 05/09/2015 02/22/2015 141 History of Past Illness Name Date of Onset Comments Asthma Hypertension hypothyroid Headache Migraine Kidney Stones Routine gynecological examination Nov 07 2009 3:01PM Hypertension Nov 07 2009 3:01PM Hypothyroidism, Acquired Nov 07 2009 3:01PM Depressive Disorder Nov 07 2009 3:01PM Vaginal Discharge Nov 07 2009 3:01PM Vitamin D deficiency Hypothyroidism 05/18/2013 Stress incontinence, female 05/18/2013 Urge incontinence 05/18/2013 Essential Hypertension May 26 2010 3:31PM Hypothyroidism, Acquired May 26 2010 3:31PM Screening Examination for Breast Cancer May 26 2010 3:31PM Essential Hypertension Jun 03 2010 11:02AM Hypothyroidism, Acquired Jun 03 2010 11:02AM Screening Examination for Breast Cancer Jun 03 2010 11:02AM Rash Of Skin Jun 03 2010 11:02AM Breast Lump, right 12/31/2014 Routine gynecological examination Nov 12 2010 3:35PM Vaginal Discharge Nov 12 2010 3:35PM Hypertension Nov 12 2010 3:35PM Hypothyroidism, Acquired Nov 12 2010 3:35PM Depressive Disorder Nov 12 2010 3:35PM Essential Hypertension Dec 30 2010 11:22AM Hypothyroidism, Acquired Dec 30 2010 11:22AM Rash Of Skin Dec 30 2010 11:22AM Essential Hypertension Feb 25 2011 1:42PM Hypothyroidism, Acquired Feb 25 2011 1:42PM Low Back Pain Feb 25 2011 1:42PM Allergic rhinitis; due to pollen Mar 25 2011 11:46AM Allergic rhinitis; due to other allergen Mar 25 2011 11:46AM Essential Hypertension Mar 30 2011 3:50PM Hypothyroidism, Acquired Mar 30 2011 3:50PM Low Back Pain Mar 30 2011 3:50PM Allergic rhinitis; due to pollen Apr 02 2011 3:33PM Allergic rhinitis; due to other allergen Apr 02 2011 3:33PM Hypercalcemia Mar 30 2011 3:50PM Allergic rhinitis; due to pollen Apr 08 2011 4:01PM Allergic rhinitis; due to other allergen Apr 08 2011 4:01PM Allergic rhinitis; due to pollen Apr 15 2011 4:18PM Allergic rhinitis; due to other allergen Apr 15 2011 4:18PM Allergic rhinitis; due to pollen Apr 29 2011 3:30PM Allergic rhinitis; due to other allergen Apr 29 2011 3:30PM Allergic rhinitis; due to pollen May 06 2011 3:25PM Allergic rhinitis; due to other allergen May 06 2011 3:25PM Allergic rhinitis; due to pollen May 14 2011 3:43PM Allergic rhinitis; due to other allergen May 14 2011 3:43PM Allergic rhinitis; due to pollen May 20 2011 3:59PM Allergic rhinitis; due to other allergen May 20 2011 3:59PM Allergic rhinitis; due to pollen May 27 2011 3:45PM Allergic rhinitis; due to other allergen May 27 2011 3:45PM Allergic rhinitis; due to pollen Jun 03 2011 3:31PM Allergic rhinitis; due to other allergen Jun 03 2011 3:31PM Allergic rhinitis; due to pollen Jun 09 2011 3:55PM Allergic rhinitis; due to other allergen Jun 09 2011 3:55PM Allergic rhinitis; due to pollen Jun 17 2011 3:25PM Allergic rhinitis; due to other allergen Jun 17 2011 3:25PM Allergic rhinitis; due to pollen Jul 07 2011 11:32AM Allergic rhinitis; due to other allergen Jul 07 2011 11:32AM Allergic rhinitis; due to pollen Jul 16 2011 10:15AM Allergic rhinitis; due to other allergen Jul 16 2011 10:15AM Allergic rhinitis; due to pollen Jul 16 2011 2:51PM Allergic rhinitis; due to other allergen Jul 16 2011 2:51PM Bronchitis, Acute Jul 21 2011 9:55AM Allergic rhinitis; due to pollen Jul 28 2011 3:43PM Allergic rhinitis; due to other allergen Jul 28 2011 3:43PM Eustachian Tube Dysfunction Aug 06 2011 3:51PM Allergic rhinitis; due to pollen Aug 12 2011 3:58PM Allergic rhinitis; due to other allergen Aug 12 2011 3:58PM Eustachian Tube Dysfunction Aug 21 2011 8:37AM Upper Respiratory Infections Sep 08 2011 8:30AM Allergic rhinitis; due to pollen Sep 08 2011 9:13AM Allergic rhinitis; due to other allergen Sep 08 2011 9:13AM Allergic rhinitis; due to pollen Sep 24 2011 11:19AM Allergic rhinitis; due to other allergen Sep 24 2011 11:19AM Allergic rhinitis; due to pollen Sep 24 2011 11:24AM Allergic rhinitis; due to other allergen Sep 24 2011 11:24AM Allergic rhinitis; due to pollen Sep 24 2011 3:47PM Allergic rhinitis; due to other allergen Sep 24 2011 3:47PM Allergic rhinitis; due to pollen Oct 01 2011 3:42PM Allergic rhinitis; due to other allergen Oct 01 2011 3:42PM Allergic rhinitis; due to pollen Oct 06 2011 3:44PM Allergic rhinitis; due to other allergen Oct 06 2011 3:44PM Allergic rhinitis; due to pollen Oct 13 2011 2:44PM Allergic rhinitis; due to other allergen Oct 13 2011 2:44PM Allergic rhinitis; due to pollen Oct 20 2011 3:31PM Allergic rhinitis; due to other allergen Oct 20 2011 3:31PM Allergic rhinitis; due to pollen Oct 29 2011 4:15PM Allergic rhinitis; due to other allergen Oct 29 2011 4:15PM Allergic rhinitis; due to pollen Nov 03 2011 3:36PM Allergic rhinitis; due to other allergen Nov 03 2011 3:36PM Allergic rhinitis; due to pollen Nov 10 2011 5:26PM Allergic rhinitis; due to other allergen Nov 10 2011 5:26PM Allergic rhinitis; due to pollen Nov 17 2011 3:32PM Allergic rhinitis; due to other allergen Nov 17 2011 3:32PM Rhinitis, Allergic Nov 27 2011 11:13AM Eustachian Tube Dysfunction Nov 27 2011 11:13AM Allergic rhinitis; due to pollen Dec 01 2011 3:31PM Allergic rhinitis; due to other allergen Dec 01 2011 3:31PM Allergic rhinitis; due to pollen Dec 08 2011 4:09PM Allergic rhinitis; due to other allergen Dec 08 2011 4:09PM Allergic rhinitis; due to pollen Dec 18 2011 11:49AM Allergic rhinitis; due to other allergen Dec 18 2011 11:49AM Allergic rhinitis; due to pollen Dec 22 2011 3:44PM Allergic rhinitis; due to other allergen Dec 22 2011 3:44PM Allergic rhinitis; due to pollen Dec 29 2011 3:26PM Allergic rhinitis; due to other allergen Dec 29 2011 3:26PM Allergic rhinitis; due to other allergen Jan 05 2012 3:20PM Allergic rhinitis; due to pollen Jan 12 2012 3:48PM Allergic rhinitis; due to other allergen Jan 12 2012 3:48PM Allergic rhinitis; due to pollen Jan 26 2012 3:47PM Allergic rhinitis; due to other allergen Jan 26 2012 3:47PM Allergic rhinitis; due to pollen Feb 02 2012 4:26PM Allergic rhinitis; due to other allergen Feb 02 2012 4:26PM Allergic rhinitis; due to pollen Feb 08 2012 3:28PM Allergic rhinitis; due to other allergen Feb 08 2012 3:28PM Allergic rhinitis; due to pollen Feb 15 2012 3:58PM Allergic rhinitis; due to other allergen Feb 15 2012 3:58PM Allergic rhinitis; due to pollen Feb 25 2012 3:42PM Allergic rhinitis; due to other allergen Feb 25 2012 3:42PM Allergic rhinitis; due to pollen Mar 01 2012 4:58PM Allergic rhinitis; due to other allergen Mar 01 2012 4:58PM Allergic rhinitis; due to pollen Mar 01 2012 6:08PM Allergic rhinitis; due to other allergen Mar 01 2012 6:08PM Allergic rhinitis; due to pollen Mar 08 2012 3:51PM Allergic rhinitis; due to other allergen Mar 08 2012 3:51PM Allergic rhinitis; due to pollen Mar 15 2012 3:28PM Allergic rhinitis; due to other allergen Mar 15 2012 3:28PM Allergic rhinitis; due to pollen Mar 22 2012 3:41PM Allergic rhinitis; due to other allergen Mar 22 2012 3:41PM Allergic rhinitis; due to pollen Mar 29 2012 3:32PM Allergic rhinitis; due to other allergen Mar 29 2012 3:32PM Allergic rhinitis; due to pollen Apr 05 2012 3:18PM Allergic rhinitis; due to other allergen Apr 05 2012 3:18PM Allergic rhinitis; due to pollen Apr 21 2012 3:51PM Allergic rhinitis; due to other allergen Apr 21 2012 3:51PM Allergic rhinitis; due to pollen Apr 26 2012 3:25PM Allergic rhinitis; due to other allergen Apr 26 2012 3:25PM Allergic rhinitis; due to pollen May 03 2012 5:22PM Allergic rhinitis; due to other allergen May 03 2012 5:22PM Allergic rhinitis; due to pollen May 10 2012 3:42PM Allergic rhinitis; due to other allergen May 10 2012 3:42PM Allergic rhinitis; due to pollen May 17 2012 4:40PM Allergic rhinitis; due to other allergen May 17 2012 4:40PM Allergic rhinitis; due to pollen May 18 2012 1:08PM Allergic rhinitis; due to other allergen May 18 2012 1:08PM Allergic rhinitis; due to pollen May 24 2012 3:25PM Allergic rhinitis; due to other allergen May 24 2012 3:25PM Routine gynecological examination Jun 01 2012 3:26PM Allergic rhinitis; due to pollen Jun 07 2012 4:09PM Allergic rhinitis; due to other allergen Jun 07 2012 4:09PM Allergic rhinitis; due to pollen Jun 14 2012 3:48PM Allergic rhinitis; due to other allergen Jun 14 2012 3:48PM Allergic rhinitis; due to pollen Jun 21 2012 3:22PM Allergic rhinitis; due to other allergen Jun 21 2012 3:22PM Allergic rhinitis; due to pollen Jul 13 2012 3:54PM Allergic rhinitis; due to other allergen Jul 13 2012 3:54PM Allergic rhinitis; due to pollen Jul 26 2012 3:41PM Allergic rhinitis; due to other allergen Jul 26 2012 3:41PM Allergic rhinitis; due to pollen Aug 03 2012 3:52PM Allergic rhinitis; due to other allergen Aug 03 2012 3:52PM Allergic rhinitis; due to pollen Aug 05 2012 2:12PM Allergic rhinitis; due to other allergen Aug 05 2012 2:12PM Allergic rhinitis; due to pollen Aug 10 2012 3:26PM Allergic rhinitis; due to other allergen Aug 10 2012 3:26PM Allergic rhinitis; due to pollen Aug 16 2012 3:46PM Allergic rhinitis; due to other allergen Aug 16 2012 3:46PM Allergic rhinitis; due to pollen Aug 23 2012 3:29PM Allergic rhinitis; due to other allergen Aug 23 2012 3:29PM Allergic rhinitis; due to pollen Aug 31 2012 3:39PM Allergic rhinitis; due to other allergen Aug 31 2012 3:39PM Allergic rhinitis; due to pollen Sep 05 2012 3:29PM Allergic rhinitis; due to other allergen Sep 05 2012 3:29PM Allergic rhinitis; due to pollen Sep 22 2012 3:41PM Allergic rhinitis; due to other allergen Sep 22 2012 3:41PM Allergic rhinitis; due to pollen Sep 30 2012 11:05AM Allergic rhinitis; due to other allergen Sep 30 2012 11:05AM Allergic rhinitis; due to pollen Oct 04 2012 3:51PM Allergic rhinitis; due to other allergen Oct 04 2012 3:51PM Allergic rhinitis; due to pollen Oct 11 2012 3:40PM Allergic rhinitis; due to other allergen Oct 11 2012 3:40PM Allergic rhinitis; due to pollen Oct 17 2012 6:34PM Allergic rhinitis; due to other allergen Oct 17 2012 6:34PM Allergic rhinitis; due to pollen Oct 18 2012 3:42PM Allergic rhinitis; due to other allergen Oct 18 2012 3:42PM Allergic rhinitis; due to pollen Oct 25 2012 4:04PM Allergic rhinitis; due to other allergen Oct 25 2012 4:04PM Allergic rhinitis; due to pollen Nov 01 2012 3:51PM Allergic rhinitis; due to other allergen Nov 01 2012 3:51PM Allergic rhinitis; due to pollen Nov 08 2012 3:42PM Allergic rhinitis; due to other allergen Nov 08 2012 3:42PM Allergic rhinitis; due to pollen Nov 15 2012 3:49PM Allergic rhinitis; due to other allergen Nov 15 2012 3:49PM Allergic rhinitis; due to pollen Nov 22 2012 3:31PM Allergic rhinitis; due to other allergen Nov 22 2012 3:31PM Allergic rhinitis; due to pollen Dec 06 2012 3:44PM Allergic rhinitis; due to other allergen Dec 06 2012 3:44PM Allergic rhinitis; due to pollen Dec 06 2012 3:45PM Allergic rhinitis; due to other allergen Dec 06 2012 3:45PM Allergic rhinitis; due to pollen Dec 20 2012 9:19AM Allergic rhinitis; due to other allergen Dec 20 2012 9:19AM Allergic rhinitis; due to pollen Dec 20 2012 3:44PM Allergic rhinitis; due to other allergen Dec 20 2012 3:44PM Allergic rhinitis; due to pollen Jan 12 2013 1:28PM Allergic rhinitis; due to other allergen Jan 12 2013 1:28PM Allergic rhinitis; due to pollen Jan 17 2013 3:37PM Allergic rhinitis; due to other allergen Jan 17 2013 3:37PM Allergic rhinitis; due to pollen Jan 24 2013 3:34PM Allergic rhinitis; due to other allergen Jan 24 2013 3:34PM Allergic rhinitis; due to pollen Jan 31 2013 3:32PM Allergic rhinitis; due to other allergen Jan 31 2013 3:32PM Allergic rhinitis; due to pollen Feb 06 2013 3:54PM Allergic rhinitis; due to other allergen Feb 06 2013 3:54PM Upper Respiratory Infections Feb 13 2013 9:36AM Conjunctivitis Feb 13 2013 9:36AM Sinusitis, Acute Feb 13 2013 9:36AM Allergic rhinitis; due to pollen Feb 21 2013 3:49PM Allergic rhinitis; due to other allergen Feb 21 2013 3:49PM Allergic rhinitis; due to pollen Mar 02 2013 3:45PM Allergic rhinitis; due to other allergen Mar 02 2013 3:45PM Allergic rhinitis; due to pollen Mar 07 2013 1:52PM Allergic rhinitis; due to other allergen Mar 07 2013 1:52PM Allergic rhinitis; due to pollen Mar 09 2013 3:55PM Allergic rhinitis; due to other allergen Mar 09 2013 3:55PM Allergic rhinitis; due to pollen Mar 13 2013 4:11PM Allergic rhinitis; due to other allergen Mar 13 2013 4:11PM Allergic rhinitis; due to pollen Mar 21 2013 3:35PM Allergic rhinitis; due to other allergen Mar 21 2013 3:35PM Allergic rhinitis; due to pollen Mar 28 2013 3:34PM Allergic rhinitis; due to other allergen Mar 28 2013 3:34PM Allergic rhinitis; due to pollen Apr 04 2013 3:41PM Allergic rhinitis; due to other allergen Apr 04 2013 3:41PM Allergic rhinitis; due to pollen Apr 18 2013 3:56PM Allergic rhinitis; due to other allergen Apr 18 2013 3:56PM Allergic rhinitis; due to pollen May 01 2013 3:41PM Allergic rhinitis; due to other allergen May 01 2013 3:41PM Allergic rhinitis; due to pollen May 09 2013 3:33PM Allergic rhinitis; due to other allergen May 09 2013 3:33PM Allergic rhinitis; due to pollen May 15 2013 3:30PM Allergic rhinitis; due to other allergen May 15 2013 3:30PM Screening Mammogram May 18 2013 2:19PM Routine gynecological examination May 18 2013 2:13PM Stress Incontinence, Female May 18 2013 2:13PM Urge incontinence May 18 2013 2:13PM Hypertension May 18 2013 2:13PM Vitamin D Deficiency May 18 2013 2:13PM Hypothyroidism May 18 2013 2:13PM Urgency of urination May 18 2013 2:13PM Obesity May 18 2013 2:13PM Allergic rhinitis; due to pollen May 23 2013 4:35PM Allergic rhinitis; due to other allergen May 23 2013 4:35PM Allergic rhinitis; due to pollen May 30 2013 3:54PM Allergic rhinitis; due to other allergen May 30 2013 3:54PM Cystocele Jun 01 2013 2:13PM Stress Incontinence, Female Jun 01 2013 2:13PM Cystocele, midline Jun 02 2013 9:09AM Allergic rhinitis; due to pollen Jun 07 2013 3:59PM Allergic rhinitis; due to other allergen Jun 07 2013 3:59PM Cystocele, midline Jun 07 2013 4:14PM Hypertension Jun 14 2013 1:44PM Hypothyroidism Jun 14 2013 1:44PM Stress Incontinence, Female Jun 14 2013 1:44PM Asthma Jun 14 2013 1:44PM Vitamin D Deficiency Jun 14 2013 1:44PM Allergic rhinitis; due to pollen Jun 19 2013 3:43PM Allergic rhinitis; due to other allergen Jun 19 2013 3:43PM Allergic rhinitis; due to pollen Jun 19 2013 3:45PM Allergic rhinitis; due to other allergen Jun 19 2013 3:45PM Allergic rhinitis; due to pollen Aug 08 2013 3:52PM Allergic rhinitis; due to other allergen Aug 08 2013 3:52PM Allergic rhinitis; due to pollen Aug 14 2013 4:56PM Allergic rhinitis; due to other allergen Aug 14 2013 4:56PM Fall on ice Aug 18 2013 6:06PM Concussion; with no loss of consciousness Aug 18 2013 6:06PM Sprain/strain of right wrist Aug 18 2013 6:06PM Allergic rhinitis; due to pollen Sep 05 2013 4:01PM Allergic rhinitis; due to other allergen Sep 05 2013 4:01PM Metrorrhagia Sep 08 2013 1:33PM Cystocele, midline Sep 08 2013 1:07PM Hypertension Sep 08 2013 1:07PM Metrorrhagia Sep 08 2013 1:07PM Hypokalemia Sep 08 2013 1:07PM Hypomagnesemia Sep 08 2013 1:07PM Hypertension Sep 18 2013 9:55AM Hypothyroidism Sep 18 2013 9:55AM Stress Incontinence, Female Sep 18 2013 9:55AM Vitamin D Deficiency Sep 18 2013 9:55AM Fatigue Sep 18 2013 9:55AM Dermatofibroma; lower limb Sep 18 2013 9:55AM Allergic rhinitis; due to pollen Jul 04 2013 4:52PM Allergic rhinitis; due to other allergen Jul 04 2013 4:52PM Allergic rhinitis; due to pollen Oct 04 2013 1:30PM Allergic rhinitis; due to other allergen Oct 04 2013 1:30PM Allergic rhinitis; due to pollen Oct 25 2013 3:33PM Allergic rhinitis; due to other allergen Oct 25 2013 3:33PM Allergic rhinitis; due to pollen Oct 29 2013 10:46PM Allergic rhinitis; due to other allergen Oct 29 2013 10:46PM Allergic rhinitis; due to pollen Oct 29 2013 10:52PM Allergic rhinitis; due to other allergen Oct 29 2013 10:52PM Allergic rhinitis; due to pollen Oct 29 2013 10:57PM Allergic rhinitis; due to other allergen Oct 29 2013 10:57PM Allergic rhinitis; due to pollen Oct 29 2013 11:11PM Allergic rhinitis; due to other allergen Oct 29 2013 11:11PM Allergic rhinitis; due to pollen Oct 29 2013 11:16PM Allergic rhinitis; due to other allergen Oct 29 2013 11:16PM Allergic rhinitis; due to pollen Oct 29 2013 11:29PM Allergic rhinitis; due to other allergen Oct 29 2013 11:29PM Allergic rhinitis; due to pollen Oct 31 2013 4:01PM Allergic rhinitis; due to other allergen Oct 31 2013 4:01PM Allergic rhinitis; due to pollen Nov 07 2013 3:38PM Allergic rhinitis; due to other allergen Nov 07 2013 3:38PM Allergic rhinitis; due to pollen Nov 14 2013 3:44PM Allergic rhinitis; due to other allergen Nov 14 2013 3:44PM Allergic rhinitis; due to pollen Nov 21 2013 4:12PM Allergic rhinitis; due to other allergen Nov 21 2013 4:12PM Allergic rhinitis; due to pollen Nov 28 2013 4:42PM Allergic rhinitis; due to other allergen Nov 28 2013 4:42PM Allergic rhinitis; due to pollen Dec 06 2013 11:49AM Allergic rhinitis; due to other allergen Dec 06 2013 11:49AM Allergic rhinitis; due to pollen Dec 12 2013 4:06PM Allergic rhinitis; due to other allergen Dec 12 2013 4:06PM Allergic rhinitis; due to pollen Dec 18 2013 3:41PM Allergic rhinitis; due to other allergen Dec 18 2013 3:41PM Allergic rhinitis; due to pollen Dec 26 2013 4:22PM Allergic rhinitis; due to other allergen Dec 26 2013 4:22PM Allergic rhinitis; due to pollen Jan 02 2014 5:01PM Allergic rhinitis; due to other allergen Jan 02 2014 5:01PM Allergic rhinitis; due to pollen Jan 10 2014 5:14PM Allergic rhinitis; due to other allergen Jan 10 2014 5:14PM Allergic rhinitis; due to pollen Jan 16 2014 4:50PM Allergic rhinitis; due to other allergen Jan 16 2014 4:50PM Allergic rhinitis; due to pollen Jan 17 2014 3:50PM Allergic rhinitis; due to other allergen Jan 17 2014 3:50PM Allergic rhinitis; due to pollen Feb 06 2014 3:39PM Allergic rhinitis; due to other allergen Feb 06 2014 3:39PM Metrorrhagia Feb 07 2014 3:57PM Special investigations and examinations; examination or test; examination or test, negative result Feb 13 2014 2:52PM Irregular Menses Feb 13 2014 2:40PM Back pain Feb 13 2014 2:40PM Allergic rhinitis; due to pollen Feb 13 2014 3:45PM Allergic rhinitis; due to other allergen Feb 13 2014 3:45PM Allergic rhinitis; due to pollen Feb 20 2014 4:54PM Allergic rhinitis; due to other allergen Feb 20 2014 4:54PM Allergic rhinitis; due to pollen Feb 27 2014 4:03PM Allergic rhinitis; due to other allergen Feb 27 2014 4:03PM Allergic rhinitis; due to pollen Mar 07 2014 4:05PM Allergic rhinitis; due to other allergen Mar 07 2014 4:05PM Allergic rhinitis; due to pollen Mar 13 2014 4:13PM Allergic rhinitis; due to other allergen Mar 13 2014 4:13PM Allergic rhinitis; due to pollen Apr 02 2014 4:38PM Allergic rhinitis; due to other allergen Apr 02 2014 4:38PM Allergic rhinitis; due to pollen Apr 13 2014 8:06AM Allergic rhinitis; due to other allergen Apr 13 2014 8:06AM Allergic rhinitis; due to pollen 2014 4:02PM Allergic rhinitis; due to other allergen 2014 4:02PM Allergic Rhinitis Apr 30 2014 3:45PM Hypomagnesemia Apr 30 2014 3:45PM Hypokalemia Apr 30 2014 3:45PM Cramp in muscle Apr 30 2014 3:45PM Menopausal and perimenopausal disorder Apr 30 2014 3:45PM Breast cancer screening Apr 30 2014 3:45PM Screening Mammogram May 03 2014 9:10AM Allergic rhinitis; due to pollen May 08 2014 3:58PM Allergic rhinitis; due to other allergen May 08 2014 3:58PM Routine gynecological examination May 09 2014 3:31PM Metrorrhagia May 09 2014 3:31PM Metrorrhagia May 09 2014 4:22PM Allergic rhinitis; due to pollen Jun 12 2014 5:10PM Allergic rhinitis; due to other allergen Jun 12 2014 5:10PM Allergic rhinitis; due to pollen Jul 09 2014 3:56PM Allergic rhinitis; due to other allergen Jul 09 2014 3:56PM Allergic rhinitis; due to pollen Jul 16 2014 3:15PM Allergic rhinitis; due to other allergen Jul 16 2014 3:15PM Allergic rhinitis; due to pollen Jul 16 2014 4:00PM Allergic rhinitis; due to other allergen Jul 16 2014 4:00PM Allergic rhinitis; due to pollen Jul 16 2014 4:59PM Allergic rhinitis; due to other allergen Jul 16 2014 4:59PM Allergic rhinitis; due to pollen Jul 16 2014 5:02PM Allergic rhinitis; due to other allergen Jul 16 2014 5:02PM Allergic rhinitis; due to pollen Jul 16 2014 5:15PM Allergic rhinitis; due to other allergen Jul 16 2014 5:15PM Allergic rhinitis; due to pollen Jul 16 2014 5:23PM Allergic rhinitis; due to other allergen Jul 16 2014 5:23PM Allergic rhinitis; due to pollen Jul 17 2014 9:22AM Allergic rhinitis; due to other allergen Jul 17 2014 9:22AM Allergic rhinitis; due to pollen Jul 17 2014 9:28AM Allergic rhinitis; due to other allergen Jul 17 2014 9:28AM Allergic rhinitis; due to pollen Jul 18 2014 9:37AM Allergic rhinitis; due to other allergen Jul 18 2014 9:37AM Allergic rhinitis; due to pollen Jul 25 2014 4:12PM Allergic rhinitis; due to other allergen Jul 25 2014 4:12PM Allergic rhinitis; due to pollen Aug 01 2014 6:09PM Allergic rhinitis; due to other allergen Aug 01 2014 6:09PM Allergic rhinitis; due to pollen Aug 07 2014 4:32PM Allergic rhinitis; due to other allergen Aug 07 2014 4:32PM Allergic rhinitis; due to pollen Aug 16 2014 4:51PM Allergic rhinitis; due to other allergen Aug 16 2014 4:51PM Metrorrhagia Aug 22 2014 3:11PM Preoperative Examination Aug 22 2014 3:11PM Postoperative Visit Sep 19 2014 11:14AM Hypertension Sep 13 2014 4:17PM Hypothyroidism Sep 13 2014 4:17PM Stress Incontinence, Female Sep 13 2014 4:17PM Urge Incontinence Sep 13 2014 4:17PM Asthma Sep 13 2014 4:17PM hypothyroid Sep 13 2014 4:17PM Vitamin D deficiency Sep 13 2014 4:17PM Ankle sprain, left, initial encounter Sep 13 2014 4:17PM Allergic rhinitis; due to other allergen Oct 04 2014 4:09PM Allergic rhinitis; due to other allergen Oct 09 2014 3:47PM Surgery follow-up Oct 11 2014 3:52PM Allergic rhinitis; due to other allergen Oct 15 2014 4:08PM Allergic rhinitis; due to other allergen Oct 24 2014 3:38PM Allergic rhinitis; due to pollen Oct 25 2014 11:56AM Allergic rhinitis; due to other allergen Oct 25 2014 11:56AM Allergic rhinitis; due to pollen Oct 26 2014 9:06AM Allergic rhinitis; due to other allergen Oct 26 2014 9:06AM Allergic rhinitis; due to other allergen Oct 29 2014 4:42PM Allergic rhinitis; due to other allergen Nov 05 2014 4:41PM Allergic rhinitis; due to other allergen Nov 12 2014 4:40PM Allergic rhinitis; due to other allergen Nov 19 2014 5:13PM Allergic rhinitis; due to other allergen Nov 28 2014 4:17PM Allergic rhinitis; due to other allergen Dec 13 2014 4:20PM Allergic rhinitis; due to other allergen Dec 17 2014 4:48PM Allergic rhinitis; due to other allergen Dec 24 2014 4:31PM Breast Lump, right Dec 31 2014 3:34PM Allergic rhinitis; due to other allergen Dec 31 2014 4:51PM Breast lump Jan 07 2015 1:05PM Allergic rhinitis; due to other allergen Jan 07 2015 3:33PM Allergic rhinitis; due to other allergen Jan 15 2015 4:38PM Allergic rhinitis; due to other allergen Jan 21 2015 4:43PM Allergic rhinitis; due to other allergen Jan 28 2015 4:42PM Allergic rhinitis; due to other allergen Feb 04 2015 3:38PM Allergic rhinitis; due to pollen Feb 11 2015 4:09PM Allergic rhinitis; due to other allergen Feb 11 2015 4:09PM Allergic rhinitis; due to other allergen Feb 18 2015 4:26PM Allergic rhinitis; due to other allergen Feb 25 2015 3:43PM Allergic rhinitis; due to other allergen Mar 04 2015 4:13PM Allergic rhinitis; due to other allergen Mar 19 2015 4:12PM Pre-operative examination Mar 19 2015 3:39PM Allergic rhinitis; due to other allergen Mar 27 2015 4:23PM Allergic rhinitis; due to other allergen Apr 01 2015 4:23PM Allergic rhinitis; due to other allergen Apr 09 2015 2:51PM Allergic rhinitis; due to other allergen Apr 18 2015 2:40PM Allergic rhinitis; due to other allergen Apr 23 2015 3:35PM Allergic rhinitis; due to other allergen Apr 30 2015 4:12PM Flu Vaccine May 09 2015 3:20PM Allergic rhinitis; due to pollen May 14 2015 3:48PM Allergic rhinitis; due to other allergen May 14 2015 3:48PM Allergic rhinitis; due to other allergen May 29 2015 3:06PM Routine gynecological examination May 29 2015 3:26PM Lipid disorder-screening May 29 2015 3:26PM Fatigue May 29 2015 3:26PM Encounter for screening mammogram for breast cancer May 29 2015 4:09PM Vaginal Polyp May 29 2015 3:26PM Allergic rhinitis; due to other allergen Jun 04 2015 3:48PM Allergic rhinitis; due to other allergen Jun 10 2015 4:18PM Allergic rhinitis; due to other allergen Jun 17 2015 4:28PM Allergic rhinitis; due to other allergen Jun 26 2015 3:57PM Allergic rhinitis; due to other allergen Jul 01 2015 4:39PM Allergic rhinitis; due to other allergen Jul 09 2015 3:48PM Allergic rhinitis; due to other allergen Jul 22 2015 4:12PM Allergic rhinitis due to other allergen Jul 22 2015 4:12PM Allergic rhinitis; due to other allergen Jul 29 2015 4:11PM Allergic rhinitis due to other allergen Jul 29 2015 4:11PM Allergic rhinitis; due to other allergen Aug 14 2015 4:22PM Allergic rhinitis due to other allergen Aug 14 2015 4:22PM Allergic rhinitis; due to other allergen Aug 19 2015 3:46PM Allergic rhinitis due to other allergen Aug 19 2015 3:46PM Allergic rhinitis; due to other allergen Sep 05 2015 3:49PM Allergic rhinitis due to other allergen Sep 05 2015 3:49PM Allergic rhinitis; due to other allergen Sep 11 2015 4:29PM Allergic rhinitis due to other allergen Sep 11 2015 4:29PM Allergic rhinitis; due to other allergen Oct 01 2015 3:37PM Allergic rhinitis due to other allergen Oct 01 2015 3:37PM Cough Oct 02 2015 3:30PM Costochondritis Oct 02 2015 3:30PM Upper Respiratory Infection Oct 02 2015 3:30PM Muscle spasm of back Oct 02 2015 3:30PM Allergic rhinitis; due to other allergen Oct 09 2015 3:38PM Allergic rhinitis due to other allergen Oct 09 2015 3:38PM Allergic rhinitis; due to other allergen Oct 15 2015 3:59PM Allergic rhinitis due to other allergen Oct 15 2015 3:59PM Allergic rhinitis; due to other allergen Oct 21 2015 4:05PM Allergic rhinitis due to other allergen Oct 21 2015 4:05PM Allergic rhinitis; due to other allergen Oct 28 2015 4:42PM Allergic rhinitis due to other allergen Oct 28 2015 4:42PM Hypertension Oct 29 2015 3:45PM hypothyroid Oct 29 2015 3:45PM BMI 38.0-38.9,adult Oct 29 2015 3:45PM Allergic rhinitis; due to other allergen Nov 04 2015 4:43PM Allergic rhinitis; due to other allergen Nov 11 2015 4:34PM Allergic rhinitis due to other allergen Nov 11 2015 4:34PM Allergic rhinitis; due to other allergen Nov 18 2015 4:12PM Allergic rhinitis due to other allergen Nov 18 2015 4:12PM Right wrist pain Nov 25 2015 11:27AM Body Mass Index [BMI]; body mass index between 30-39, adult; body mass index 36.0-36.9, adult Nov 27 2015 2:50PM Hypertension Nov 27 2015 2:50PM Allergic rhinitis; due to pollen Nov 27 2015 3:15PM Allergic rhinitis; due to other allergen Nov 27 2015 3:15PM Hypertension, Benign Essential Nov 28 2015 4:07PM Allergic rhinitis; due to other allergen Dec 02 2015 3:07PM Allergic rhinitis due to other allergen Dec 02 2015 3:07PM Allergic rhinitis; due to other allergen Dec 09 2015 3:51PM Allergic rhinitis due to other allergen Dec 09 2015 3:51PM Allergic rhinitis; due to other allergen Dec 25 2015 4:12PM Allergic rhinitis due to other allergen Dec 25 2015 4:12PM Hypertension, Benign Essential Jan 02 2016 10:28AM Body Mass Index [BMI]; body mass index between 30-39, adult; body mass index 35.0-35.9, adult Jan 08 2016 3:23PM Hypertension Jan 08 2016 3:23PM Allergic rhinitis; due to other allergen Jan 15 2016 3:59PM Allergic rhinitis due to other allergen Jan 15 2016 3:59PM Allergic rhinitis; due to other allergen Jan 27 2016 4:12PM Allergic rhinitis due to other allergen Jan 27 2016 4:12PM Allergic rhinitis; due to pollen Feb 12 2016 3:34PM Allergic rhinitis; due to other allergen Feb 12 2016 3:34PM Hypertension Feb 12 2016 3:04PM Body Mass Index [BMI]; body mass index between 30-39, adult; body mass index 34.0-34.9, adult Feb 12 2016 3:04PM Allergic rhinitis, unspecified allergic rhinitis type Feb 12 2016 3:04PM Allergic rhinitis; due to pollen Feb 19 2016 4:33PM Allergic rhinitis; due to other allergen Feb 19 2016 4:33PM Allergic rhinitis; due to pollen Mar 02 2016 4:15PM Allergic rhinitis; due to other allergen Mar 02 2016 4:15PM Eustachian tube dysfunction, bilateral Mar 04 2016 2:52PM Benign paroxysmal positional vertigo, unspecified laterality Mar 04 2016 2: 52PM Allergic rhinitis; due to pollen Mar 06 2016 11:26AM Allergic rhinitis; due to other allergen Mar 06 2016 11:26AM Allergic rhinitis; due to pollen Mar 11 2016 5:07PM Allergic rhinitis; due to other allergen Mar 11 2016 5:07PM Allergic rhinitis; due to pollen Mar 17 2016 4:49PM Allergic rhinitis; due to other allergen Mar 17 2016 4:49PM Allergic rhinitis; due to pollen Mar 26 2016 3:34PM Allergic rhinitis; due to other allergen Mar 26 2016 3:34PM Allergic rhinitis; due to pollen Apr 01 2016 9:54AM Allergic rhinitis; due to other allergen Apr 01 2016 9:54AM Vertigo Apr 01 2016 9:49AM Eustachian tube dysfunction, right Apr 01 2016 9:49AM Allergic rhinitis; due to pollen Apr 07 2016 3:49PM Allergic rhinitis; due to other allergen Apr 07 2016 3:49PM Allergic rhinitis; due to pollen Apr 13 2016 4:36PM Allergic rhinitis; due to other allergen Apr 13 2016 4:36PM Hypertension Apr 23 2016 2:20PM Hypothyroidism, Acquired Apr 23 2016 2:20PM Dizziness Apr 23 2016 2:20PM Allergic rhinitis; due to pollen Apr 23 2016 2:40PM Allergic rhinitis; due to other allergen Apr 23 2016 2:40PM Syncope, unspecified syncope type Apr 23 2016 2:20PM Encounter for screening mammogram for breast cancer Apr 29 2016 1:37PM Allergic rhinitis; due to pollen Apr 29 2016 4:23PM Allergic rhinitis; due to other allergen Apr 29 2016 4:23PM Payers Insurance Name Company Name Plan Name Plan Number Policy Number Policy Group Number Start Date [id number] June [facility] Fund *[place] Self Insurance [id number] N/A Comp [place] [id number] Wednesday, 2015 History of Encounters Visit Date Visit Type Provider 04/29/2016 Nurse visit Yvonne Cassidy MD 04/23/2016 Office visit Jessie Mock [employer] 04/13/2016 Nurse visit Yvonne Cassidy MD 04/07/2016 Nurse visit Yvonne Cassidy MD 04/01/2016 Office visit Jessie Mock [employer] 03/26/2016 Nurse visit Yvonne Cassidy MD 03/17/2016 Nurse visit Yvonne Cassidy MD 03/11/2016 Nurse visit Yvonne Cassidy MD 03/04/2016 Office visit Jessie Mock [employer] 03/02/2016 Nurse visit Yvonne Cassidy MD 02/19/2016 Nurse visit Yvonne Cassidy MD 02/12/2016 Office visit Jessie Mock [employer] 02/03/2016 Nurse visit Yvonne Cassidy MD 01/27/2016 Nurse visit Yvonne Cassidy MD 01/15/2016 Nurse visit Yvonne Cassidy MD 01/08/2016 Office visit eJssie Mock [employer] 12/25/2015 Nurse visit Yvonne Cassidy MD 12/09/2015 Nurse visit Yvonne Cassidy MD 12/02/2015 Nurse visit Yvonne Cassidy MD 11/29/2015 Nurse visit Donte Hastings [employer] 11/28/2015 Nurse visit Jessie Mock [employer] 11/27/2015 Office visit Jessie Mock [employer] 11/25/2015 Office visit Donte Hastings [employer] 11/18/2015 Nurse visit Donte Hastings [employer] 11/11/2015 Nurse visit Jessie Mock [employer] 11/04/2015 Nurse visit Donte Gerberran [employer] 10/29/2015 Office visit Jessie Mock [employer] 10/28/2015 Nurse visit Jessie Mock [employer] 10/21/2015 Nurse visit Glenn Tejeda MD 10/15/2015 Nurse visit Francisco J Jesus DO 10/09/2015 Nurse visit Glenn Tejeda MD 10/02/2015 Office visit April Deepakgordy [employer] 10/01/2015 Nurse visit Jessie Mock [employer] 09/11/2015 Nurse visit Yvonne Cassidy MD 09/05/2015 Nurse visit Yvonne Cassidy MD 08/19/2015 Nurse visit Yvonne Cassidy MD 08/14/2015 Nurse visit Yvonne Cassidy MD 07/29/2015 Nurse visit Yvonne Cassidy MD 07/22/2015 Nurse visit Yvonne Cassidy MD 07/09/2015 Nurse visit Yvonne Cassidy MD 07/01/2015 Nurse visit Yvonne Cassidy MD 06/26/2015 Nurse visit Yvonne Cassidy MD 06/17/2015 Nurse visit Yvonne Cassidy MD 06/10/2015 Nurse visit Yvonne Cassidy MD 06/04/2015 Nurse visit Yvonne Cassidy MD 05/29/2015 Office visit 05/29/2015 Office visit Karolyn Millan [employer] 05/29/2015 Nurse visit Yvonne Cassidy MD 05/14/2015 Nurse visit Francisco J Jesus DO 05/09/2015 Nurse visit Yvonne Cassidy MD 04/30/2015 Nurse visit Yvonne Cassidy MD 04/23/2015 Nurse visit Yvonne Cassidy MD 04/18/2015 Nurse visit Nidia Darby [employer] 04/09/2015 Nurse visit Yvonne Cassidy MD 04/01/2015 Nurse visit Yvonne Cassidy MD 03/27/[address] Cody Horvath MD 03/25/2015 [facility] Alexander Park MD 03/19/2015 Nurse visit Yvonne Cassidy MD 03/19/2015 Office visit Nidia Darby [employer] 03/04/2015 Nurse visit Yvonne Cassidy MD 02/25/2015 Nurse visit Yvonne Cassidy MD 02/18/2015 Nurse visit Yvonne Cassidy MD 02/11/2015 Nurse visit Yvonne Cassidy MD 02/04/2015 Nurse visit Yvonne Cassidy MD 01/28/2015 Nurse visit Yvonne Cassidy MD 01/21/2015 Nurse visit Yvonne Cassidy MD 01/15/2015 Nurse visit Yvonne Cassidy MD 01/07/2015 Nurse visit Yvonne Cassidy MD 12/31/2014 Nurse visit Yvonne Cassidy MD 12/31/2014 Office visit 12/31/2014 Office visit 12/31/2014 Office visit Karolyn Millan [employer] 12/24/2014 Nurse visit Yvonne Cassidy MD 12/17/2014 Nurse visit Yvonne Cassidy MD 12/13/2014 Nurse visit Yvonne Cassidy MD 11/28/2014 Nurse visit Yvonne Cassidy MD 11/19/2014 Nurse visit Yvonne Cassidy MD 11/12/2014 Nurse visit Yvonne Cassidy MD 11/05/2014 Nurse visit Yvonne Cassidy MD 11/05/2014 [facility] Darin Park MD 10/29/2014 Nurse visit Yvonne Cassidy MD 10/24/2014 Nurse visit Yvonne Cassidy MD 10/15/2014 Nurse visit Yvonne Cassidy MD 10/11/2014 Office visit Karolyn Millan [employer] 10/09/2014 Nurse visit Yvonne Cassidy MD 10/04/2014 Nurse visit Yvonne Cassidy MD 09/19/2014 Surgery Karolyn Millan [employer] 09/13/2014 Office visit Yvonne Cassidy MD 09/06/2014 Nurse visit Yvonne Cassidy MD 08/28/2014 [facility] Chauncey Hogan MD 08/28/2014 [facility] Joe Thomas MD 08/23/2014 Nurse visit Yvonne Cassidy MD 08/22/2014 Surgery Joe Thomas MD 08/16/2014 Nurse visit Yvonne Cassidy MD 08/07/2014 Nurse visit Yvonne Cassidy MD 08/01/2014 Nurse visit Jessie Mock [employer] 07/25/2014 Nurse visit Nidia Darby [employer] 07/16/2014 Nurse visit Yvonne Cassidy MD 07/09/2014 Nurse visit Yvonne Cassidy MD 07/03/2014 Nurse visit Yvonne Cassidy MD 06/28/2014 Nurse visit Yvonne Cassidy MD 06/20/2014 Nurse visit Yvonne Cassidy MD 06/12/2014 Nurse visit Yvonne Cassidy MD 05/30/2014 Nurse visit Yvonne Cassidy MD 05/21/2014 Nurse visit Yvonne Cassidy MD 05/15/2014 Nurse visit Yvonne Cassidy MD 05/09/2014 Office visit Joe Thomas MD 05/08/2014 Nurse visit Yvonne Cassidy MD 04/30/2014 Office visit Yvonne Cassidy MD 2014 Nurse visit Yvonne Cassidy MD 04/10/2014 Nurse visit Yvonne Cassidy MD 04/02/2014 Nurse visit Yvonne Cassidy MD 03/26/2014 Nurse visit Yvonne Cassidy MD 03/20/2014 Nurse visit Jessie Mock [employer] 03/13/2014 Nurse visit Donte Hastings [employer] 03/07/2014 Nurse visit Yvonne Cassidy MD 02/27/2014 Nurse visit Jessie Mock [employer] 02/20/2014 Nurse visit Donte Hastings [employer] 02/13/2014 Nurse visit Donte Hastings [employer] 02/13/2014 Procedures Joe Thomas MD 02/07/2014 Office visit Joe Thomas MD 02/06/2014 Nurse visit Yvonne Cassidy MD 01/17/2014 Nurse visit Nidia Darby [employer] 01/10/2014 Nurse visit Yvonne Cassidy MD 01/02/2014 Nurse visit Yvonne Cassidy MD 12/26/2013 Nurse visit Yvonne Cassidy MD 12/18/2013 Nurse visit Yvonne Cassidy MD 12/12/2013 Nurse visit Yvonne Cassidy MD 12/05/2013 Nurse visit Yvonne Cassidy MD 11/28/2013 Nurse visit Yvonne Cassidy MD 11/21/2013 Nurse visit Yvonne Cassidy MD 11/14/2013 Nurse visit Yvonne Cassidy MD 11/07/2013 Nurse visit Nidia Darby [employer] 10/31/2013 Nurse visit Nidia Darby [employer] 10/25/2013 Nurse visit Nidia Darby [employer] 10/18/2013 Voided Nidia Darby [employer] 10/10/2013 Voided Yovnne Cassidy MD 10/03/2013 Nurse visit Yvonne Cassidy MD 09/18/2013 Office visit Yvonne Cassidy MD 09/15/2013 Nurse visit Yvonne Cassidy MD 09/08/2013 Office visit Joe Thomas MD 09/05/2013 Nurse visit Yvonne Cassidy MD 08/29/2013 Nurse visit Yvonne Cassidy MD 08/21/2013 Nurse visit Yvonne Cassidy MD 08/18/2013 Office visit Robinson Rodriguez PA-C 08/14/2013 Nurse visit Yvonne Cassidy MD 08/08/2013 Nurse visit Yvonne Cassidy MD 08/01/2013 Nurse visit Yvonne Cassidy MD 07/20/2013 Nurse visit Yvonne Cassidy MD 07/04/2013 Nurse visit Yvonne Cassidy MD 06/26/2013 Nurse visit Yvonne Cassidy MD 06/19/2013 Nurse visit Yvonne Cassidy MD 06/14/2013 Office visit Yvonne Cassidy MD 06/07/2013 Office visit Joe Thomas MD 06/07/2013 Nurse visit Bria Mart MD 06/02/2013 Office visit Joe Thomas MD 06/01/2013 Office visit Joe Thomas MD 05/30/2013 Nurse visit Bria Mart MD 05/23/2013 Nurse visit Bria Mart MD 05/18/2013 Office visit Joe Thomas MD 05/15/2013 Nurse visit Bria Mart MD 05/09/2013 Nurse visit Bria Mart MD 05/01/2013 Nurse visit Bria Mart MD 04/18/2013 Nurse visit Nidia Darby [employer] 04/04/2013 Nurse visit Nidia Darby [employer] 03/28/2013 Nurse visit Nidia Darby [employer] 03/21/2013 Nurse visit Nidia Darby [employer] 03/13/2013 Nurse visit Nidia Darby [employer] 03/09/2013 Nurse visit Nidia Darby [employer] 03/02/2013 Nurse visit Nidia Darby [employer] 02/21/2013 Nurse visit Nidia Darby [employer] 02/13/2013 Office visit Nidia Darby [employer] 02/06/2013 Nurse visit Bria Mart MD 01/31/2013 Nurse visit Bria Mart MD 01/24/2013 Nurse visit Bria Mart MD 01/17/2013 Nurse visit Bria Mart MD 01/10/2013 Nurse visit Bria Mart MD 01/02/2013 Nurse visit Bria Mart MD 12/20/2012 Nurse visit Bria Mart MD 12/14/2012 Nurse visit Bria Mart MD 12/06/2012 Nurse visit Bria Mart MD 11/29/2012 Nurse visit Bria Mart MD 11/22/2012 Nurse visit Bria Mart MD 11/15/2012 Nurse visit Bria Mart MD 11/08/2012 Nurse visit Bria Mart MD 11/01/2012 Nurse visit Bria Mart MD 10/25/2012 Nurse visit Bria Mart MD 10/18/2012 Nurse visit Bria Mart MD 10/11/2012 Nurse visit Bria Mart MD 10/04/2012 Nurse visit Nidia Darby [employer] 09/27/2012 Nurse visit Bria Mart MD 09/22/2012 Nurse visit Bira Mart MD 09/12/2012 Nurse visit Bria Mart MD 09/05/2012 Nurse visit Francisco J Jesus DO 08/31/2012 Nurse visit Bria Mart MD 08/23/2012 Nurse visit Bria Mart MD 08/16/2012 Nurse visit Bria Mart MD 08/10/2012 Nurse visit Bria Mart MD 08/03/2012 Nurse visit Bria Mart MD 07/26/2012 Nurse visit Bria Mart MD 07/13/2012 Nurse visit Bria Mart MD 07/05/2012 Nurse visit Bria Mart MD 06/21/2012 Nurse visit Bria Mart MD 06/14/2012 Nurse visit Bria Mart MD 06/07/2012 Nurse visit Nidia Darby [employer] 06/07/2012 Voided Francisco J Jesus DO 06/01/2012 Office visit Bria Mart MD 05/24/2012 Nurse visit Bria Mart MD 05/17/2012 Nurse visit Bria Mart MD 05/10/2012 Nurse visit Bria Mart MD 05/03/2012 Nurse visit Bria Mart MD 04/26/2012 Nurse visit Bria Mart MD 04/21/2012 Nurse visit Bria Mart MD 04/12/2012 Nurse visit Bria Mart MD 04/05/2012 Nurse visit Bria Mart MD 03/29/2012 Nurse visit Bria Mart MD 03/22/2012 Nurse visit Bria Mart MD 03/15/2012 Nurse visit Bria Mart MD 03/08/2012 Nurse visit Bria Mart MD 03/01/2012 Nurse visit Bria Mart MD 02/25/2012 Nurse visit Bria Mart MD 02/15/2012 Nurse visit Bria Mart MD 02/08/2012 Nurse visit Bria Mart MD 02/02/2012 Nurse visit Bria Mart MD 01/26/2012 Nurse visit Bria Mart MD 01/12/2012 Nurse visit Bria Mart MD 01/05/2012 Nurse visit Glenn Tejeda MD 12/29/2011 Nurse visit Bria Mart MD 12/22/2011 Nurse visit Bria Mart MD 12/18/2011 Nurse visit Bria Mart MD 12/08/2011 Nurse visit Bria Mart MD 12/01/2011 Nurse visit Bria Mart MD 11/27/2011 Office visit Bria Mart MD 11/26/2011 Nurse visit Bria Mart MD 11/17/2011 Nurse visit Bria Mart MD 11/10/2011 Nurse visit Bria Mart MD 11/03/2011 Nurse visit Bria Mart MD 10/29/2011 Nurse visit Bria Mart MD 10/20/2011 Nurse visit Bria Mart MD 10/13/2011 Nurse visit Bria Mart MD 10/06/2011 Nurse visit Bria Mart MD 10/01/2011 Nurse visit Bria Mart MD 09/24/2011 Nurse visit Bria Mart MD 09/17/2011 Nurse visit Bria Mart MD 09/08/2011 Nurse visit Bria Mart MD 09/08/2011 Office visit Jessie Mock [employer] 09/01/2011 Nurse visit Bria Mart MD 08/21/2011 Office visit Bria Mart MD 08/12/2011 Nurse visit Bria Mart MD 08/06/2011 Office visit Bria Mart MD 07/28/2011 Nurse visit Bria Mart MD 07/21/2011 Office visit Bria Mart MD 07/16/2011 Nurse visit Bria Mart MD 07/06/2011 Nurse visit Bria Mart MD 06/17/2011 Nurse visit Bria Mart MD 06/09/2011 Nurse visit Bria Mart MD 06/03/2011 Nurse visit Bria Mrat MD 05/27/2011 Nurse visit Bria Mart MD 05/20/2011 Nurse visit Bria Mart MD 05/14/2011 Nurse visit Bria Mart MD 05/06/2011 Nurse visit Bria Mart MD 04/29/2011 Nurse visit Bria Mart MD 04/22/2011 Nurse visit Bria Mart MD 04/15/2011 Nurse visit Bria Mart MD 04/08/2011 Nurse visit Bria Mart MD 04/02/2011 Nurse visit Bria Mart MD 03/30/2011 Office visit Bria Mart MD 03/25/2011 Nurse visit Bria Mart MD 02/25/2011 Office visit Bria Mart MD 12/30/2010 Office visit Bria Mart MD 11/12/2010 Office visit Bria Mart MD 06/03/2010 Office visit Bria Mart MD 05/26/2010 Office visit Bria Mart MD 11/07/2009 Office visit Bria Mart MD 05/29/2009 Office visit Marium GOLDEN
--- OUTSIDE RECORDS SUMMARY | 2017-05-06 13:49 | XMS REPORT ---
Author Author Yvonne Cassidy Organization [facility] Address [address] [place], [place] [id number] Care Team Providers Care Integrated Marketing Manager Name Role Phone Yvonne Cassidy PCP Yvonen Cassidy PreferredProvider Allergies and Adverse Reactions Name Reaction Notes Ceftin rash erythromycin rash PENICILLINS rash Plan of Treatment Planned Activity Comments Planned Date Planned Time Plan/Goal Allergy Injection Multiple 04/18/2015 12:00 AM Allergy Injection Multiple 03/27/2015 12:00 AM Allergy Injection Multiple 07/22/2015 12:00 AM Allergy Injection Multiple 11/11/2015 12:00 AM EKG. 04/23/2016 12:00 AM Allergy Injection Multiple 01/05/2012 12:00 AM Injection,Subcutaneous/Intramuscul 01/05/2012 12:00 AM Allergy Injection Multiple 09/30/2012 12:00 AM Allergy Injection Multiple 10/04/2012 12:00 AM Allergy Injection Multiple 10/11/2012 12:00 AM Allergy Injection Multiple 10/17/2012 12:00 AM Allergy Injection Multiple 10/18/2012 12:00 AM Allergy Injection Multiple 10/25/2012 12:00 AM Allergy Injection Multiple 11/01/2012 12:00 AM Allergy Injection Multiple 11/08/2012 12:00 AM Allergy Injection Multiple 11/15/2012 12:00 AM Allergy Injection Multiple 11/22/2012 12:00 AM Allergy Injection Multiple 12/06/2012 12:00 AM Allergy Injection Multiple 12/06/2012 12:00 AM Allergy Injection Multiple 12/20/2012 12:00 AM Allergy Injection Multiple 12/20/2012 12:00 AM Allergy Injection Multiple 01/12/2013 12:00 AM Allergy Injection Multiple 01/17/2013 12:00 AM Allergy Injection Multiple 01/24/2013 12:00 AM Allergy Injection Multiple 01/31/2013 12:00 AM Allergy Injection Multiple 02/06/2013 12:00 AM Allergy Injection Multiple 02/21/2013 12:00 AM Allergy Injection Multiple 03/02/2013 12:00 AM Allergy Injection Multiple 03/07/2013 12:00 AM Allergy Injection Multiple 03/09/2013 12:00 AM Allergy Injection Multiple 03/13/2013 12:00 AM Allergy Injection Multiple 03/21/2013 12:00 AM Allergy Injection Multiple 03/28/2013 12:00 AM Allergy Injection Multiple 04/04/2013 12:00 AM Allergy Injection Multiple 04/18/2013 12:00 AM Allergy Injection Multiple 05/01/2013 12:00 AM Allergy Injection Multiple 05/09/2013 12:00 AM Allergy Injection Multiple 05/15/2013 12:00 AM Allergy Injection Multiple 05/23/2013 12:00 AM Allergy Injection Multiple 05/30/2013 12:00 AM Allergy Injection Multiple 06/07/2013 12:00 AM dizziness Allergy Injection Multiple 02/27/2014 12:00 AM Allergy Injection Multiple 08/01/2014 12:00 AM Allergy Injection Multiple 10/15/2014 12:00 AM Allergy Injection Multiple 08/23/2014 12:00 AM Allergy Injection Multiple 09/06/2014 12:00 AM Allergy Injection Multiple 10/29/2014 12:00 AM Allergy Injection Multiple 11/05/2014 12:00 AM Allergy Injection Multiple 11/12/2014 12:00 AM Allergy Injection Multiple 11/19/2014 12:00 AM Allergy Injection Multiple 11/28/2014 12:00 AM Allergy Injection Multiple 12/13/2014 12:00 AM Allergy Injection Multiple 12/17/2014 12:00 AM Allergy Injection Multiple 12/24/2014 12:00 AM Allergy Injection Multiple 12/31/2014 12:00 AM Allergy Injection Multiple 01/07/2015 12:00 AM Allergy Injection Multiple 01/15/2015 12:00 AM Allergy Injection Multiple 01/21/2015 12:00 AM Allergy Injection Multiple 01/28/2015 12:00 AM Allergy Injection Multiple 02/04/2015 12:00 AM Allergy Injection Multiple 02/18/2015 12:00 AM Allergy Injection Multiple 02/25/2015 12:00 AM Allergy Injection Multiple 03/04/2015 12:00 AM Allergy Injection Multiple 03/19/2015 12:00 AM Medications Active Name Start [...] Reviewed 08/21/2011 12:00 AM Depo-Medrol 40 mg [facility]#[id number] Reviewed 03/02/2016 12:00 AM IMMUNOTHERAPY INJECTIONS Reviewed [...] Reviewed 04/29/2016 12:00 AM IMMUNOTHERAPY INJECTIONS Reviewed 05/05/2016 12:00 AM IMMUNOTHERAPY INJECTIONS Reviewed 10/01/2011 12:00 AM IMMUNOTHERAPY INJECTIONS Reviewed 05/11/2016 12:00 AM IMMUNOTHERAPY INJECTIONS Reviewed 10/06/2011 12:00 AM IMMUNOTHERAPY INJECTIONS Reviewed 10/13/2011 12:00 AM IMMUNOTHERAPY INJECTIONS Reviewed 04/23/2016 12:00 AM IMMUNOTHERAPY INJECTIONS Reviewed 05/27/2016 12:00 AM IMMUNOTHERAPY INJECTIONS Reviewed 10/20/2011 12:00 AM IMMUNOTHERAPY INJECTIONS Reviewed 10/29/2011 12:00 AM IMMUNOTHERAPY INJECTIONS Reviewed 11/03/2011 12:00 AM IMMUNOTHERAPY INJECTIONS Reviewed 11/10/2011 12:00 AM IMMUNOTHERAPY INJECTIONS Reviewed 11/17/2011 12:00 AM IMMUNOTHERAPY INJECTIONS Reviewed 11/27/2011 12:00 AM THER/PROPH/DIAG INJ SC/IM Reviewed 11/27/2011 12:00 AM Depo-Medrol 40 mg [facility]#[id number] Reviewed 12/01/2011 12:00 AM IMMUNOTHERAPY INJECTIONS Reviewed [...] 02/13/2013 12:00 AM Decadron, Per 1 Mg [facility]# [address]-30 Reviewed 02/13/2013 12:00 AM Depo-Medrol, Per 80 Mg [facility]#2741-1053-18 Reviewed 06/05/2013 12:00 AM MAMMOGRAM SCREENING Returned [...] BLOOD SMALL NITRITE NEGATIVE LEUK SCREEN NEGATIVE WBC/HPF RARE RBC/HPF RARE CASTS/LPF NEGATIVE CRYSTALS TRACE CA OX MUCOUS THRDS NEGATIVE BACTERIA FEW EPITH CELLS FEW SQUAMOUS TRICHOMONAS NEGATIVE YEAST NEGATIVE CULT SET UP? NO 08/22/2014 4:05 PM WBC 6.4 RBC 4.70 HGB 15.20 g/dLHCT 44.20 %MCV 94.0 fLMCH 32.30 pgMCHC 34.40 g/dLRDW SD 45 RDW CV 12.90 %MPV 10.70 fLPLT 255 NRBC# 0.00 NRBC% 0.0 %NEUT 54.70 %%LYMP 32.0 %%MONO 8.90 %%EOS 3.10 %%BASO 1.30 %#NEUT 3.50 #LYMP 2.05 #MONO 0.57 #EOS 0.20 #BASO 0.08 MANUAL DIFF NOT IND GLUCOSE 89.0 mg/dLSODIUM 141.0 mmol/LPOTASSIUM 3.90 mmol/LCHLORIDE 103.0 mmol/LCO2 26.0 mmol/LBUN 15.0 mg/dLCREATININE 0.80 mg/dLSGOT/AST 23.0 IU/LSGPT/ALT 23.0 IU/ LALK PHOS 99.0 IU/LTOTAL PROTEIN 8.0 g/dLALBUMIN 4.70 g/dLTOTAL BILI 0.50 mg/ dLCALCIUM 10.10 mg/dLAGE 54 GFR NonAA 74 GFR AA 90 eGFR >60 mL/min/1.73 m2eGFR AA* >60 PROTIME 10.0 secsINR 1.0 PTT 28.20 secs 08/28/2014 7:10 AM TEST UR NEGATIVE 08/29/2014 6:45 AM WBC 9.2 RBC 4.08 HGB 13.20 g/dLHCT 39.30 %MCV 96.0 fLMCH 32.40 pgMCHC 33.60 g/dLRDW SD 46 RDW CV 13.10 %MPV 10.30 fLPLT 234 NRBC# 0.00 NRBC% 0.0 GLUCOSE 116.0 mg/dLSODIUM 140.0 mmol/LPOTASSIUM 3.50 mmol/LCHLORIDE 106.0 mmol/LCO2 23.0 mmol/LBUN 7.0 mg/dLCREATININE 0.70 mg/dLCALCIUM 8.50 mg/ dLAGE 54 GFR NonAA 87 GFR AA 105 eGFR >60 mL/min/1.73 m2eGFR AA* >60 06/17/2015 7:45 AM TRIGLYCERIDES 136.0 mg/dLCHOLESTEROL 210.0 mg/dLHDL 46.0 mg /dLTOT CHOL/HDL 4.6 LDL (CALC) 137.0 mg/dLTSH 1.080 uIU/mL 04/25/2016 8:32 AM TSH <0.06 uIU/mLGLUCOSE 101.0 mg/dLSODIUM 140.0 mmol/ LPOTASSIUM 4.30 mmol/LCHLORIDE 105.0 mmol/LCO2 24.0 mmol/LBUN 14.0 mg/ dLCREATININE 0.80 mg/dLSGOT/AST 19.0 IU/LSGPT/ALT 21.0 IU/LALK PHOS 104.0 IU/ LTOTAL PROTEIN 7.50 g/dLALBUMIN 4.50 g/dLTOTAL BILI 0.80 mg/dLCALCIUM 9.90 mg/ dLAGE 56 GFR NonAA 74 GFR AA 90 eGFR >60 mL/min/1.73meGFR AA* >60 TRIGLYCERIDES 90.0 mg/dLCHOLESTEROL 187.0 mg/dLHDL 40.0 mg/dLTOT CHOL/HDL 4.7 LDL (CALC) 129.0 mg/dLWBC 6.5 RBC 4.75 HGB 15.0 g/dLHCT 43.0 %MCV 91.0 fLMCH 31.60 pgMCHC 34.90 g/dLRDW SD 40 RDW CV 12.10 %MPV 10.10 fLPLT 263 NRBC# 0.00 NRBC% 0.0 %NEUT 58.90 %%LYMP 25.70 %%MONO 10.60 %%EOS 3.50 %%BASO 1.10 %#NEUT 3.86 #LYMP 1.68 #MONO 0.69 #EOS 0.23 #BASO 0.07 MANUAL DIFF NOT IND History Of Immunizations Name Date Admin Mfg Name Mfg Code Trade Name Lot# Route Inj Vis Given Vis Pub CVX Influenza 06/02/2010 sanofi pasteur PMC Fluzone [id number] Intramuscular Left Deltoid 06/02/2010 02/25/2010 999 Influenza 05/09/2015 sanofi pasteur PMC Fluzone [id number] Intramuscular Left Deltoid 05/09/2015 02/22/2015 141 History [...] to other allergen Apr 29 2016 4:23PM Allergic rhinitis; due to pollen May 05 2016 3:56PM Allergic rhinitis; due to other allergen May 05 2016 3:56PM Allergic rhinitis; due to pollen May 11 2016 3:48PM Allergic rhinitis; due to other allergen May 11 2016 3:48PM Allergic rhinitis; due to other allergen May 27 2016 4:02PM Payers Insurance Name Company Name Plan Name Plan Number Policy Number Policy Group Number [facility] Date [id number] *INVALID State Self Insurance [id number] N/A Comp [facility] [id number] Wednesday, 2015 History of Encounters Visit Date Visit Type Provider 05/27/2016 Nurse visit Yvonne Cassidy MD 05/11/2016 Nurse visit Yvonne Cassidy MD 05/05/2016 Nurse visit Yvonne Cassidy MD 04/29/2016 Nurse visit Yvonne Cassidy MD 04/23/2016 Office visit Jessie Mock MACHINE PULLER 04/13/2016 Nurse visit Yvonne Cassidy MD 04/07/2016 Nurse visit Yvonne Cassidy MD 04/01/2016 Office visit Jessie Mock MACHINE PULLER 03/26/2016 Nurse visit Yvonne Cassidy MD 03/17/2016 Nurse visit Yvonne Cassidy MD 03/11/2016 Nurse visit Yvonne Cassidy MD 03/04/2016 Office visit Jessie Mock MACHINE PULLER 03/02/2016 Nurse visit Yvonne Cassidy MD 02/19/2016 Nurse visit Yvonne Cassidy MD 02/12/2016 Office visit Jessie Mock MACHINE PULLER 02/03/2016 Nurse visit Yvonne Cassidy MD 01/27/2016 Nurse visit Yvonne Cassidy MD 01/15/2016 Nurse visit Yvonne Cassidy MD 01/08/2016 Office visit Jessie Mock MACHINE PULLER 12/25/2015 Nurse visit Yvonne Cassidy MD 12/09/2015 Nurse visit Yvonne Cassidy MD 12/02/2015 Nurse visit Yvonne Cassidy MD 11/29/2015 Nurse visit Donte Hastings MACHINE PULLER 11/28/2015 Nurse visit Jessie Mock MACHINE PULLER 11/27/2015 Office visit Jessie Mock MACHINE PULLER 11/25/2015 Office visit Donte Hastings MACHINE PULLER 11/18/2015 Nurse visit Donte Hastings MACHINE PULLER 11/11/2015 Nurse visit Jessie Mock MACHINE PULLER 11/04/2015 Nurse visit Donte Hastings MACHINE PULLER 10/29/2015 Office visit Jessie Mock MACHINE PULLER 10/28/2015 Nurse visit Jessie Mock MACHINE PULLER 10/21/2015 Nurse visit Glenn Tejeda MD 10/15/2015 Nurse visit Francisco J Jesus DO 10/09/2015 Nurse visit Glenn Tejeda MD 10/02/2015 Office visit April Atkinson MACHINE PULLER 10/01/2015 Nurse visit Jessie Mock MACHINE PULLER 09/11/2015 Nurse visit Yvonne Cassidy MD 09/05/2015 [...] Office visit 05/29/2015 Office visit Karolyn Millan MACHINE PULLER 05/29/2015 Nurse visit Yvonne Cassidy MD 05/14/2015 Nurse visit Francisco J Jesus DO 05/09/2015 Nurse visit Yvonne Casisdy MD 04/30/2015 Nurse visit Yvonne Cassidy MD 04/23/2015 Nurse visit Yvonne Cassidy MD 04/18/2015 Nurse visit Nidia Darby MACHINE PULLER 04/09/2015 Nurse visit Yvonne Cassidy MD 04/01/2015 Nurse visit Yvonne Cassidy MD 03/27/[address] Cody Horvath MD 03/25/2015 [facility] Alexander Park MD 03/19/2015 Nurse visit Yvonne Cassidy MD 03/19/2015 Office visit Nidia Darby MACHINE PULLER 03/04/2015 Nurse visit Yvonne Cassidy MD 02/25/2015 [...] Office visit 12/31/2014 Office visit Karolyn Millan MACHINE PULLER 12/24/2014 Nurse visit Yvonne Cassidy MD 12/17/2014 Nurse visit Yvonne Cassidy MD 12/13/2014 Nurse visit Yvonne Cassidy MD 11/28/2014 Nurse visit Yvonne Cassidy MD 11/19/2014 Nurse visit Yvonne Cassidy MD 11/12/2014 Nurse visit Yvonne Cassidy MD 11/05/2014 Nurse visit Yvonne Cassidy MD 11/05/2014 [facility] Alexander Park MD 10/29/2014 Nurse visit Yvonne Cassidy MD 10/24/2014 Nurse visit Yvonne Cassidy MD 10/15/2014 Nurse visit Yvonne Cassidy MD 10/11/2014 Office visit Karolyn Millan MACHINE PULLER 10/09/2014 Nurse visit Yvonne Cassidy MD 10/04/2014 Nurse visit Yvonne Cassidy MD 09/19/2014 Surgery Karolyn Millan MACHINE PULLER 09/13/2014 Office visit Yvonne Cassidy MD 09/06/2014 Nurse visit Yvonne Cassidy MD 08/28/2014 Hospital Chauncey Hogan MD 08/28/2014 [facility] Joe Thomas MD 08/23/2014 Nurse visit Yvonne Cassidy MD 08/22/2014 Surgery Joe Thomas MD 08/16/2014 Nurse visit Yvonne Cassidy MD 08/07/2014 Nurse visit Yvonne Cassidy MD 08/01/2014 Nurse visit Jessie Mock MACHINE PULLER 07/25/2014 Nurse visit Nidia Darby MACHINE PULLER 07/16/2014 Nurse visit Yvonne Cassidy MD 07/09/2014 [...] Cassidy MD 03/20/2014 Nurse visit Jessie Mock MACHINE PULLER 03/13/2014 Nurse visit Donte Hastings MACHINE PULLER 03/07/2014 Nurse visit Yvonne Cassidy MD 02/27/2014 Nurse visit Jessie Mock MACHINE PULLER 02/20/2014 Nurse visit Donte Hastings MACHINE PULLER 02/13/2014 Nurse visit Donte Hastings MACHINE PULLER 02/13/2014 Procedures Joe Thomas MD 02/07/2014 Office visit Joe Thomas MD 02/06/2014 Nurse visit Yvonne Cassidy MD 01/17/2014 Nurse visit Nidia Darby MACHINE PULLER 01/10/2014 Nurse visit Yvonne Cassidy MD 01/02/2014 Nurse visit Yvonne Cassidy MD 12/26/2013 Nurse visit Yvonne Cassidy MD 12/18/2013 Nurse visit Yvonne Cassidy MD 12/12/2013 Nurse visit Yvonne Cassidy MD 12/05/2013 Nurse visit Yvonne Cassidy MD 11/28/2013 Nurse visit Yvonne Cassidy MD 11/21/2013 Nurse visit Yvonne Cassidy MD 11/14/2013 Nurse visit Yvonne Cassidy MD 11/07/2013 Nurse visit Nidia Darby MACHINE PULLER 10/31/2013 Nurse visit Nidia Darby MACHINE PULLER 10/25/2013 Nurse visit Nidia Darby MACHINE PULLER 10/18/2013 Voided Nidia Darby MACHINE PULLER 10/10/2013 Voided Yvonne Cassidy MD 10/03/2013 Nurse visit Yvonne Cassidy [...] Mart MD 04/18/2013 Nurse visit Nidia Darby MACHINE PULLER 04/04/2013 Nurse visit Nidia Darby MACHINE PULLER 03/28/2013 Nurse visit Nidia Darby MACHINE PULLER 03/21/2013 Nurse visit Nidia Darby MACHINE PULLER 03/13/2013 Nurse visit Nidia Darby MACHINE PULLER 03/09/2013 Nurse visit Nidia Darby MACHINE PULLER 03/02/2013 Nurse visit Nidia Darby MACHINE PULLER 02/21/2013 Nurse visit Nidia Darby MACHINE PULLER 02/13/2013 Office visit Nidia Darby MACHINE PULLER 02/06/2013 Nurse visit Bria Mart MD 01/31/2013 [...] Mart MD 10/04/2012 Nurse visit Nidia Darby MACHINE PULLER 09/27/2012 Nurse visit Bria Mart MD 09/22/2012 Nurse visit Bria Mart MD 09/12/2012 Nurse visit Bria Mart MD 09/05/2012 Nurse visit Francisco J Danielsonnola ISSA 08/31/2012 Nurse visit Bria Mart MD 08/23/2012 [...] Mart MD 06/07/2012 Nurse visit Nidia Darby APRN 06/07/2012 Voided Francisco J Edin ISSA 06/01/2012 Office visit Bria Mart MD 05/24/2012 [...] Mart MD 09/08/2011 Office visit Jessie Mock MACHINE PULLER 09/01/2011 Nurse visit Bria Mart MD 08/21/2011 [...] Bria Mart MD 06/03/2011 Nurse visit Bria Mart MD 05/27/2011 Nurse visit Bria Mart MD [...]
--- OUTSIDE RECORDS SUMMARY | 2017-05-06 13:52 | XMS REPORT ---
Author Author Yvonne Cassidy [facility] Address [address] [place], [place] [id number] Care Team Providers Care Tilting Head Band Sawyer Name Role Phone Yvonne Cassidy PCP Allergies and Adverse Reactions Name Reaction Notes Ceftin rash erythromycin rash PENICILLINS rash Plan of Treatment Planned Activity Comments Planned Date Planned Time Plan/Goal IMMUNOTHERAPY INJECTIONS 04/18/2015 12:00 AM IMMUNOTHERAPY INJECTIONS 03/27/2015 12:00 AM IMMUNOTHERAPY INJECTIONS 07/22/2015 12:00 AM IMMUNOTHERAPY INJECTIONS 11/11/2015 12:00 AM IMMUNOTHERAPY INJECTIONS 01/05/2012 12:00 AM [...] TO 2 SPRAYS INTO EACH NOSTRIL DAILY Synthroid 175 mcg oral tablet 06/03/2015 TAKE 1 TABLET BY MOUTH ONCE DAILY bupropion HCl 300 mg oral tablet [...] 3mg daily there after, into abdomen, thigh Singulair 10 mg oral tablet 04/01/2016 take 1 tablet (10 mg) by oral route once daily in the evening Zyrtec-D 5-120 mg oral tablet extended release 12 hr 04/01/2016 take 1 tablet by oral route 2 times per day Name Start Date Expiration Date SIG Comments [...] HC BMI BSA BMI Percentile O2 Sat(%) 04/01/2016 9:47:00 AM 126 mmHg 72 mmHg 84 bpm 18 rpm 97.9 F 209.5 lbs 66.5 in 33.31 kg/m2 2.11 m2 97 % 03/04/2016 2:48:00 PM 142 mmHg 84 mmHg 80 bpm 19 rpm 98.4 F 226.2 lbs 66.5 in 35.9623 kg/m 2.1941 m 97 % 02/12/2016 3:02:00 PM 132 mmHg 72 mmHg 71 bpm 18 rpm 97.8 F 214.375 lbs 66.5 in 34.08 kg/m2 2.14 m2 98 % 01/08/2016 3:21:00 PM 132 mmHg 74 mmHg 68 bpm 18 rpm 97.4 F 222.062 lbs 66.5 in 35.3045 kg/m 2.1739 m 100 % 12/02/2015 3:06:00 PM 102 mmHg 72 mmHg 11/29/2015 3:32:00 PM 120 mmHg 70 mmHg 69 bpm 98 % 11/28/2015 4:07:00 PM 140 mmHg 84 mmHg 11/27/2015 2:47:00 PM 142 mmHg 88 mmHg 72 bpm 18 rpm 97.7 F 230 lbs 66.5 in 36.5665 kg/m 2.2125 m 98 % 11/25/2015 11:26:00 AM 160 mmHg 90 mmHg 75 bpm 16 rpm 97.6 F 241 lbs 66.5 in 38.32 kg/m2 2.26 m2 97 % 10/29/2015 3:44:00 PM 122 mmHg 86 mmHg 67 bpm 19 rpm 96.7 F 243 lbs 66.5 in 38.6333 kg/m 2.2741 m 99 % 10/02/2015 3:29:00 PM 150 mmHg 80 mmHg 71 bpm 16 rpm 97 F 247 lbs 66.5 in 39.27 kg/m2 2.29 m2 99 % 05/29/2015 3:21:00 PM 146 mmHg 71 mmHg 66 bpm 98.5 F 236 lbs 66.5 in 37.5204 kg/m 2.2411 m 03/19/2015 3:36:00 PM 130 mmHg 72 mmHg 77 bpm 20 rpm 97.5 F 238.8 lbs 66.5 in 37.97 kg/m2 2.25 m2 98 % 12/31/2014 3:30:00 PM 136 mmHg 68 mmHg 62 bpm 16 rpm 98 F 231 lbs 66.5 in 36.7254 kg/m 2.2173 m 99 % 10/11/2014 3:45:00 PM 132 mmHg 77 mmHg 66 bpm 97.6 F 233.375 lbs 66.5 in 37.10 kg/m2 2.23 m2 09/19/2014 11:11:00 AM 136 mmHg 78 mmHg 88 bpm 18 rpm 98.3 F 233 lbs 66.5 in 37.0434 kg/m 2.2268 m 99 % 09/13/2014 4:12:00 PM 170 mmHg 80 mmHg 92 bpm 98.4 F 231.375 lbs 66.5 in 36.79 kg/m2 2.22 m2 99 % 08/22/2014 3:08:00 PM 143 mmHg 82 mmHg 71 bpm 97.6 F 237 lbs 66.5 in 37.6793 kg/m 2.2459 m 98 % 05/09/2014 3:24:00 PM 152 mmHg 87 mmHg 88 bpm 96.6 F 233.375 lbs 66.5 in 37.10 kg/m2 2.23 m2 04/30/2014 3:40:00 PM 138 mmHg 72 mmHg 78 bpm 181 rpm 98.7 F 235 lbs 66.5 in 37.3614 kg/m 2.2364 m 97 % 02/13/2014 2:37:00 PM 149 mmHg 86 mmHg 80 bpm 97.9 F 226.25 lbs 66.5 in 35.97 kg/m2 2.19 m2 02/07/2014 3:54:00 PM 154 mmHg 81 mmHg 80 bpm 97.8 F 226.5 lbs 66.5 in 36.01 kg/m 2.1956 m 09/18/2013 9:51:00 AM 130 mmHg 70 mmHg 86 bpm 16 rpm 96.8 F 227 lbs 66.5 in 36.09 kg/m2 2.20 m2 97 % 09/08/2013 1:02:00 PM 148 mmHg 80 mmHg 91 bpm 98 F 230.375 lbs 66.5 in 36.6261 kg/m 2.2143 m 08/18/2013 6:04:00 PM 122 mmHg 80 mmHg 75 bpm 22 rpm 98.5 F 232 lbs 66.5 in 36.88 kg/m2 2.22 m2 96 % 06/14/2013 1:40:00 PM 118 mmHg 75 mmHg 88 bpm 18 rpm 98.4 F 228 lbs 66.5 in 36.2485 kg/m 2.2028 m 97 % 06/07/2013 4:13:00 PM 130 mmHg 82 mmHg 81 bpm 96.8 F 06/02/2013 9:07:00 AM 143 mmHg 77 mmHg 82 bpm 97.9 F 06/01/2013 1:45:00 PM 145 mmHg 86 mmHg 95 bpm 97.5 F 232 lbs 67 in 36.34 kg/m2 2.23 m2 99 % 05/18/2013 2:06:00 PM 165 mmHg 94 mmHg 84 bpm 98 F 222.25 lbs 67 in 34.8089 kg/m 2.183 m 02/13/2013 9:30:00 AM 130 mmHg 80 mmHg 90 bpm 20 rpm 97.9 F 229 lbs 67.5 in 35.34 kg/m2 2.22 m2 97 % 06/01/2012 3:21:00 PM 120 mmHg 70 mmHg 86 bpm 16 rpm 99.2 F 224.125 lbs 97 % 11/27/2011 11:10:00 AM 136 mmHg 80 mmHg 99 bpm 16 rpm 96.7 F 219 lbs 98 % 09/08/2011 8:28:00 AM 128 mmHg 64 mmHg 68 bpm 18 rpm 98.1 F 218.5 lbs 67.5 in 33.7165 kg/m 2.1726 m 08/21/2011 8:32:00 AM 122 mmHg 80 mmHg 79 bpm 16 rpm 97.8 F 219.25 lbs 67.5 in 33.83 kg/m2 2.18 m2 99 % 08/06/2011 3:46:00 PM 122 mmHg 80 mmHg 88 bpm 20 rpm 97.4 F 218 lbs 67.5 in 33.6393 kg/m 2.1701 m 07/21/2011 9:52:00 AM 142 mmHg 70 mmHg 111 bpm 16 rpm 96.6 F 216 lbs 96 % 03/30/2011 3:52:00 PM 140 mmHg 88 mmHg 97 bpm 16 rpm 97.9 F 210 lbs 97 % 02/25/2011 1:44:00 PM 148 mmHg 86 mmHg 87 bpm 16 rpm 98 F 213 lbs 67.5 in 32.87 kg/m2 2.15 m2 98 % 12/30/2010 11:22:00 AM 162 mmHg [...] rpm 98.4 F 222 lbs 67.5 in 34.2566 kg/m 2.1899 m Social History Name Description Comments Attended some [...] Reviewed 08/21/2011 12:00 AM Depo-Medrol 40 mg [facility]#[id number] Reviewed 03/02/2016 12:00 AM IMMUNOTHERAPY INJECTIONS Reviewed 03/06/2016 12:00 AM IMMUNOTHERAPY INJECTIONS Reviewed 03/11/2016 12:00 AM IMMUNOTHERAPY INJECTIONS Reviewed 03/17/2016 12:00 AM IMMUNOTHERAPY INJECTIONS Reviewed 09/08/2011 12:00 AM IMMUNOTHERAPY INJECTIONS Reviewed 03/26/2016 12:00 AM IMMUNOTHERAPY INJECTIONS Reviewed 04/01/2016 12:00 AM IMMUNOTHERAPY INJECTIONS Reviewed 04/07/2016 12:00 AM IMMUNOTHERAPY INJECTIONS Reviewed 09/24/2011 12:00 AM IMMUNOTHERAPY INJECTIONS Reviewed 09/24/2011 12:00 AM IMMUNOTHERAPY INJECTIONS Reviewed 09/24/2011 12:00 AM IMMUNOTHERAPY INJECTIONS Reviewed 10/01/2011 12:00 [...] Reviewed 11/27/2011 12:00 AM Depo-Medrol 40 mg [facility]#[id number] Reviewed 12/01/2011 12:00 AM IMMUNOTHERAPY INJECTIONS Reviewed [...] 02/13/2013 12:00 AM Decadron, Per 1 Mg [facility]# [address]-91 Reviewed 02/13/2013 12:00 AM Depo-Medrol, Per 80 Mg [facility]#[id number] Reviewed 06/05/2013 12:00 AM MAMMOGRAM SCREENING Returned [...] BILI 0.50 mg/dLCALCIUM 10.10 mg/dLeGFR >60 mL/min/1.73 [id number] 10.0 secsINR 1.0 PTT 28.20 secs 08/28/2014 [...] mg /dLLDL (CALC) 137.0 mg/dLTSH 1.080 uIU/mL History Of Immunizations Name Date Admin Mfg Name Mfg Code Trade Name Lot# Route Inj Vis Given Vis Pub CVX Influenza 06/02/2010 sanofi pasteur PMC Fluzone [id number] Intramuscular Left Deltoid 06/02/2010 02/25/2010 999 Influenza 05/09/2015 [facility] PMC Fluzone [id number] Intramuscular Left Deltoid 05/09/2015 02/22/2015 141 History [...] to other allergen Apr 07 2016 3:49PM Payers Insurance Name Company Name Plan Name Plan Number Policy Number Policy Group Number [id number] Self Insurance Fund *INVALID State Self Insurance [id number] N/A Comp Toutle Comp Toutle [id number] Wednesday, 2015 History of Encounters Visit Date Visit Type Provider 04/07/2016 Nurse visit Yvonne Cassidy MD 04/01/2016 Office visit Jessie Mock BEET END SUPERVISOR 03/26/2016 Nurse visit Yvonne Cassidy MD 03/17/2016 Nurse visit Yvonne Cassidy MD 03/11/2016 Nurse visit Yvonne Cassidy MD 03/04/2016 Office visit Jessie Mock BEET END SUPERVISOR 03/02/2016 Nurse visit Yvonne Cassidy MD 02/19/2016 Nurse visit Yvonne Cassidy MD 02/12/2016 Office visit Jessie Mock BEET END SUPERVISOR 02/03/2016 Nurse visit Yvonne Cassidy MD 01/27/2016 Nurse visit Yvonne Cassidy MD 01/15/2016 Nurse visit Yvonne Cassidy MD 01/08/2016 Office visit Jessie Mock BEET END SUPERVISOR 12/25/2015 Nurse visit Yvonne Cassidy MD 12/09/2015 Nurse visit Yvonne Cassidy MD 12/02/2015 Nurse visit Yvonne Cassidy MD 11/29/2015 Nurse visit Donte Hastings BEET END SUPERVISOR 11/28/2015 Nurse visit Jessie Mock BEET END SUPERVISOR 11/27/2015 Office visit Jessie Mock BEET END SUPERVISOR 11/25/2015 Office visit Donte Hastings BEET END SUPERVISOR 11/18/2015 Nurse visit Donte Hastings BEET END SUPERVISOR 11/11/2015 Nurse visit Jessie Mock BEET END SUPERVISOR 11/04/2015 Nurse visit Donte Hastings BEET END SUPERVISOR 10/29/2015 Office visit Jessie Mock BEET END SUPERVISOR 10/28/2015 Nurse visit Jessie Mock BEET END SUPERVISOR 10/21/2015 Nurse visit Glenn Tejeda MD 10/15/2015 Nurse visit Francisco J Jesus DO 10/09/2015 Nurse visit Glenn Tejeda MD 10/02/2015 Office visit April Atkinson BEET END SUPERVISOR 10/01/2015 Nurse visit Jessie Mock BEET END SUPERVISOR 09/11/2015 Nurse visit Yvonne Cassidy MD 09/05/2015 [...] Office visit 05/29/2015 Office visit Karolyn Millan BEET END SUPERVISOR 05/29/2015 Nurse visit Yvonne Cassidy MD 05/14/2015 Nurse visit Francisco J Jesus DO 05/09/2015 Nurse visit Yvonne Cassidy MD 04/30/2015 Nurse visit Yvonne Cassidy MD 04/23/2015 Nurse visit Yvonne Cassidy MD 04/18/2015 Nurse visit Nidia Darby BEET END SUPERVISOR 04/09/2015 Nurse visit Yvonne Cassidy MD 04/01/2015 Nurse visit Yvonne Cassidy MD 03/27/[address] Cody Horvath MD 03/25/2015 [facility] Alexander Park MD 03/19/2015 Nurse visit Yvonne Cassidy MD 03/19/2015 Office visit Nidia Darby BEET END SUPERVISOR 03/04/2015 Nurse visit Yvonne Cassidy MD 02/25/2015 [...] Office visit 12/31/2014 Office visit Karolyn Millan BEET END SUPERVISOR 12/24/2014 Nurse visit Yvonne Cassidy MD 12/17/2014 Nurse visit Yvonne Cassidy MD 12/13/2014 Nurse visit Yvonne Cassidy MD 11/28/2014 Nurse visit Yvonne Cassidy MD 11/19/2014 Nurse visit Yvonne Cassidy MD 11/12/2014 Nurse visit Yvonne Cassidy MD 11/05/2014 Nurse visit Yvonne Cassidy MD 11/05/2014 [facility] Darin Park MD 10/29/2014 Nurse visit Yvonne Cassidy MD 10/24/2014 Nurse visit Yvonne Cassidy MD 10/15/2014 Nurse visit Yvonne Cassidy MD 10/11/2014 Office visit Karolyn Millan BEET END SUPERVISOR 10/09/2014 Nurse visit Yvonne Cassidy MD 10/04/2014 Nurse visit Yvonne Cassidy MD 09/19/2014 Surgery Karolyn Millan BEET END SUPERVISOR 09/13/2014 Office visit Yvonne Cassidy MD 09/06/2014 Nurse visit Yvonne Cassidy MD 08/28/2014 [facility] Chauncey Hogan MD 08/28/2014 [facility] Joe Thomas MD 08/23/2014 Nurse visit Yvonne Cassidy MD 08/22/2014 Surgery Joe Thomas MD 08/16/2014 Nurse visit Yvonne Cassidy MD 08/07/2014 Nurse visit Yvonne Cassidy MD 08/01/2014 Nurse visit Jessie Mock BEET END SUPERVISOR 07/25/2014 Nurse visit Nidia Darby BEET END SUPERVISOR 07/16/2014 Nurse visit Yvonne Cassidy MD 07/09/2014 [...] Cassidy MD 03/20/2014 Nurse visit Jessie Mock BEET END SUPERVISOR 03/13/2014 Nurse visit Donte Hastings BEET END SUPERVISOR 03/07/2014 Nurse visit Yvonne Cassidy MD 02/27/2014 Nurse visit Jessie Mock BEET END SUPERVISOR 02/20/2014 Nurse visit Donte Hastings BEET END SUPERVISOR 02/13/2014 Nurse visit Donte Hastings BEET END SUPERVISOR 02/13/2014 Procedures Joe Thomas MD 02/07/2014 Office visit Joe Thomas MD 02/06/2014 Nurse visit Yvonne Cassidy MD 01/17/2014 Nurse visit Nidia Darby BEET END SUPERVISOR 01/10/2014 Nurse visit Yvonen Cassidy MD 01/02/2014 Nurse visit Yvonne Cassidy MD 12/26/2013 Nurse visit Yvonne Cassidy MD 12/18/2013 Nurse visit Yvonne Cassidy MD 12/12/2013 Nurse visit Yvonne Cassidy MD 12/05/2013 Nurse visit Yvonne Cassidy MD 11/28/2013 Nurse visit Yvonne Cassidy MD 11/21/2013 Nurse visit Yvonne Cassidy MD 11/14/2013 Nurse visit Yvonne Cassidy MD 11/07/2013 Nurse visit Nidia Darby BEET END SUPERVISOR 10/31/2013 Nurse visit Nidia Darby BEET END SUPERVISOR 10/25/2013 Nurse visit Nidia Darby BEET END SUPERVISOR 10/18/2013 Voided Nidia Darby BEET END SUPERVISOR 10/10/2013 Voided Yvonne Cassidy MD 10/03/2013 Nurse [...] Mart MD 04/18/2013 Nurse visit Nidia Darby BEET END SUPERVISOR 04/04/2013 Nurse visit Nidia Darby BEET END SUPERVISOR 03/28/2013 Nurse visit Nidia Darby BEET END SUPERVISOR 03/21/2013 Nurse visit Nidia Darby BEET END SUPERVISOR 03/13/2013 Nurse visit Nidia Darby BEET END SUPERVISOR 03/09/2013 Nurse visit Nidia Darby BEET END SUPERVISOR 03/02/2013 Nurse visit Nidia Darby BEET END SUPERVISOR 02/21/2013 Nurse visit Nidia Darby BEET END SUPERVISOR 02/13/2013 Office visit Nidia Darby BEET END SUPERVISOR 02/06/2013 Nurse visit Bria Mart MD 01/31/2013 [...] Mart MD 10/04/2012 Nurse visit Nidia Darby BEET END SUPERVISOR 09/27/2012 Nurse visit Bria Mart MD 09/22/2012 Nurse visit Bria Mart MD 09/12/2012 Nurse visit Bria Mart MD 09/05/2012 Nurse visit Francisco J Jesus DO 08/31/2012 Nurse visit Bria Mart MD 08/23/2012 Nurse visit Bria Mart MD 08/16/2012 Nurse visit Brai Mart MD 08/10/2012 Nurse visit Bria Mart MD 08/03/2012 Nurse visit Bria Mart MD 07/26/2012 Nurse visit Bria Mart MD 07/13/2012 Nurse visit Bria Mart MD 07/05/2012 Nurse visit Bria Mart MD 06/21/2012 Nurse visit Bria Mart MD 06/14/2012 Nurse visit Bria Mart MD 06/07/2012 Nurse visit Nidia Darby BEET END SUPERVISOR 06/07/2012 Voided Francisco J Jesus DO 06/01/2012 [...] Mart MD 09/08/2011 Office visit Jessie Mock BEET END SUPERVISOR 09/01/2011 Nurse visit Bria Mart MD 08/21/2011 [...]
--- OUTSIDE RECORDS SUMMARY | 2017-05-06 13:55 | XMS REPORT ---
Author Author Yvonne Cassidy [facility] Address [address] [place], [place] [id number] Care Team Providers Care Sql Engineer Name Role Phone Yvonne Cassidy PCP Allergies and Adverse Reactions Name Reaction Notes Ceftin rash Erythromycin rash PENICILLINS rash Plan of Treatment Planned Activity Comments Planned Date Planned Time Plan/Goal IMMUNOTHERAPY INJECTIONS 04/18/2015 12:00 AM IMMUNOTHERAPY INJECTIONS 03/27/2015 12:00 AM IMMUNOTHERAPY INJECTIONS 07/22/2015 12:00 AM IMMUNOTHERAPY INJECTIONS 01/05/2012 12:00 AM [...] 12:00 AM IMMUNOTHERAPY INJECTIONS 06/07/2013 12:00 AM IMMUNOTHERAPY INJECTIONS 02/27/2014 12:00 AM IMMUNOTHERAPY INJECTIONS [...] ONCE DAILY atenolol 25 mg oral tablet 09/19/2014 09/14/2015 take 1 tablet (25 mg) by oral route once daily for 90 days triamcinolone acetonide 55 mcg nasal aerosol,spray 11/14/2014 USE 1-2 SPRAYS BY NASAL ROUTE DAILY for 30 days triamcinolone acetonide 55 mcg nasal aerosol,spray 11/14/2014 USE 1-2 SPRAYS BY NASAL ROUTE DAILY for 30 days meloxicam 15 mg oral tablet 01/31/2015 TAKE 1 TABLET BY MOUTH ONCE DAILY triamcinolone acetonide 55 mcg nasal aerosol,spray 04/01/2015 USE 1 TO 2 SPRAYS INTO EACH NOSTRIL DAILY triamcinolone acetonide 55 mcg nasal aerosol,spray [...] DAILY triamcinolone acetonide 55 mcg nasal aerosol,spray 06/19/2013 07/19/2013 USE 1- 2 SPRAYS BY NASAL ROUTE DAILY triamcinolone acetonide 55 mcg nasal aerosol,spray 04/11/2014 08/09/2014 USE 1 -2 SPRAYS BY NASAL ROUTE DAILY for 30 days triamcinolone acetonide 55 mcg nasal aerosol,spray 04/11/2014 [...] brace 09/19/2014 10/03/2014 Wearing daily when ambulating Discontinued Name Start Date Discontinued Date SIG [...] oral route every 4-6 hours as needed Problem List Description Status Onset Asthma Active Hypertension Active hypothyroid Active Vitamin D deficiency Active Hypothyroidism Active 05/18/2013 Stress incontinence, female Active 05/18/2013 Urge Incontinence Active 05/18/2013 Breast Lump, right Active 12/31/2014 Vital Signs Date Time BP-Sys(mm[Hg] BP-Karina(mm[Hg]) HR(bpm) RR(rpm) Temp WT HT HC BMI BSA BMI Percentile O2 Sat(%) 05/29/2015 3:21:00 PM 146 mmHg 71 mmHg [...] Children Lives with spouse Tobacco Never smoker History of Procedures Date Ordered Description Order [...] Reviewed 05/06/2011 12:00 AM IMMUNOTHERAPY INJECTIONS Reviewed 05/14/2011 12:00 AM IMMUNOTHERAPY INJECTIONS Reviewed 05/20/2011 12:00 AM IMMUNOTHERAPY INJECTIONS Reviewed 05/27/2011 12:00 AM IMMUNOTHERAPY INJECTIONS Reviewed 06/03/2011 12:00 AM IMMUNOTHERAPY INJECTIONS Reviewed 06/09/2011 12:00 AM IMMUNOTHERAPY INJECTIONS Reviewed 06/17/2011 12:00 AM IMMUNOTHERAPY INJECTIONS Reviewed 07/07/2011 12:00 AM IMMUNOTHERAPY INJECTIONS Reviewed 07/16/2011 12:00 AM IMMUNOTHERAPY INJECTIONS Reviewed 07/16/2011 12:00 AM IMMUNOTHERAPY INJECTIONS Reviewed 07/28/2011 12:00 AM IMMUNOTHERAPY INJECTIONS Reviewed 08/06/2011 12:00 AM THER/PROPH/DIAG INJ SC/IM Reviewed 08/06/2011 12:00 AM IMMUNOTHERAPY INJECTIONS Reviewed 08/12/2011 12:00 AM IMMUNOTHERAPY INJECTIONS Reviewed 08/21/2011 12:00 AM THER/PROPH/DIAG INJ SC/IM Reviewed 08/21/2011 12:00 AM Depo-Medrol 40 mg [facility]#[id number] Reviewed 09/08/2011 12:00 AM IMMUNOTHERAPY INJECTIONS Reviewed 09/24/2011 12:00 [...] Reviewed 11/27/2011 12:00 AM Depo-Medrol 40 mg [facility]#[id number] Reviewed 12/01/2011 12:00 AM IMMUNOTHERAPY INJECTIONS Reviewed [...] 02/13/2013 12:00 AM Decadron, Per 1 Mg [facility]# [address]-25 Reviewed 02/13/2013 12:00 AM Depo-Medrol, Per 80 Mg [facility]#[id number] Reviewed 06/05/2013 12:00 AM MAMMOGRAM SCREENING Returned [...] BILI 0.50 mg/dLCALCIUM 10.10 mg/dLeGFR >60 mL/min/1.73 [id number] 10.0 secsINR 1.0 PTT 28.20 secs 08/28/2014 [...] CVX Influenza 06/02/2010 sanofi pasteur PMC Fluzone [id number] Intramuscular Left Deltoid 06/02/2010 02/25/2010 999 Influenza 05/09/2015 [facility] Fluzone [id number] Intramuscular Left Deltoid 05/09/2015 02/22/2015 141 History of Past Illness Name Date of Onset Comments Asthma Hypertension hypothyroid Headache Migraine Kidney Stones Routine gynecological examination Nov 07 2009 3:01PM Hypertension Nov 07 2009 3:01PM Hypothyroidism, Acquired Nov 07 2009 3:01PM Depressive Disorder Nov 07 2009 3:01PM Vaginal Discharge Nov 07 2009 3:01PM Vitamin D deficiency Hypothyroidism 05/18/2013 Stress incontinence, female 05/18/2013 Urge Incontinence 05/18/2013 Essential Hypertension May 26 2010 3:31PM [...] to other allergen Jul 29 2015 4:11PM Payers Insurance Name Company Name Plan Name Plan Number Policy Number Policy Group Number Start Date [employer] [id number] [place] *[place] Self Insurance [id number] N /A History of Encounters Visit Date Visit Type Provider 07/29/2015 Nurse visit Yvonne Cassidy MD 07/22/2015 Nurse visit Yvonne Cassidy MD 07/09/2015 Nurse visit Yvonne Cassidy MD 07/01/2015 Nurse visit Yvonne Cassidy MD 06/26/2015 Nurse visit Yvonne Cassidy MD 06/17/2015 Nurse visit Yvonne Cassidy MD 06/10/2015 Nurse visit Yvonne Cassidy MD 06/04/2015 Nurse visit Yvonne Cassidy MD 05/29/2015 Office visit Karolyn Millan HIGH LEAD YARDER 05/29/2015 Nurse visit Yvonne Cassidy MD 05/14/2015 Nurse visit Francisco J Jesus DO 05/09/2015 Nurse visit Yvonne Cassidy MD 04/30/2015 Nurse visit Yvonne Cassidy MD 04/23/2015 Nurse visit Yvonne Cassidy MD 04/18/2015 Nurse visit Nidia Darby HIGH LEAD YARDER 04/09/2015 Nurse visit Yvonne Cassidy MD 04/01/2015 Nurse visit Yvonne Cassidy MD 03/27/[address] Cody Horvath MD 03/25/2015 [facility] Alexander Park MD 03/19/2015 Nurse visit Yvonne Cassidy MD 03/19/2015 Office visit Nidia Darby HIGH LEAD YARDER 03/04/2015 Nurse visit Yvonne Cassidy MD 02/25/2015 Nurse visit Yvonne Cassidy MD 02/18/2015 Nurse visit Yvonne Cassidy MD 02/11/2015 Nurse visit Yvonne Cassidy MD 02/04/2015 Nurse visit Yvonne Cassidy MD 01/28/2015 Nurse visit Yvonne Cassidy MD 01/21/2015 Nurse visit Yvonne Cassidy MD 01/15/2015 Nurse visit Yvonne Cassidy MD 01/07/2015 Nurse visit Yovnne Cassidy MD 12/31/2014 Nurse visit Yvonne Cassidy MD 12/31/2014 Office visit Karolyn Millan HIGH LEAD YARDER 12/24/2014 Nurse visit Yvonne Cassidy MD 12/17/2014 Nurse visit Yvonne Cassidy MD 12/13/2014 Nurse visit Yvonne Cassidy MD 11/28/2014 Nurse visit Yvonne Cassidy MD 11/19/2014 Nurse visit Yvonne Cassidy MD 11/12/2014 Nurse visit Yvonne Cassidy MD 11/05/2014 Nurse visit Yvonne Cassidy MD 11/05/2014 [facility] Darin Park MD 10/29/2014 Nurse visit Yvonne Cassidy MD 10/24/2014 Nurse visit Yvonne Cassidy MD 10/15/2014 Nurse visit Yvonne Cassidy MD 10/11/2014 Office visit Karolyn Millan HIGH LEAD YARDER 10/09/2014 Nurse visit Yvonne Cassidy MD 10/04/2014 Nurse visit Yvonne Cassidy MD 09/19/2014 Surgery Karolyn Millan HIGH LEAD YARDER 09/13/2014 Office visit Yvonne Cassidy MD 09/06/2014 Nurse visit Yvonne Cassidy MD 08/28/2014 [facility] Chauncey Hogan MD 08/28/2014 [facility] Joe Thomas MD 08/23/2014 Nurse visit Yvonne Cassidy MD 08/22/2014 Surgery Joe Thomas MD 08/16/2014 Nurse visit Yvonne Cassidy MD 08/07/2014 Nurse visit Yvonne Cassidy MD 08/01/2014 Nurse visit Jessie Mock HIGH LEAD YARDER 07/25/2014 Nurse visit Nidia Darby HIGH LEAD YARDER 07/16/2014 Nurse visit Yvonne Cassidy MD 07/09/2014 [...] Cassidy MD 03/20/2014 Nurse visit Jessie Mock HIGH LEAD YARDER 03/13/2014 Nurse visit Donte Hastings HIGH LEAD YARDER 03/07/2014 Nurse visit Yvonne Cassidy MD 02/27/2014 Nurse visit Jessie Mock HIGH LEAD YARDER 02/20/2014 Nurse visit Donte Hastings HIGH LEAD YARDER 02/13/2014 Nurse visit Donte Hastings HIGH LEAD YARDER 02/13/2014 Procedures Joe Thomas MD 02/07/2014 Office visit Joe Thomas MD 02/06/2014 Nurse visit Yvonne Cassidy MD 01/17/2014 Nurse visit Nidia Darby HIGH LEAD YARDER 01/10/2014 Nurse visit Yvonne Cassidy MD 01/02/2014 Nurse visit Yvonne Cassidy MD 12/26/2013 Nurse visit Yvonne Cassidy MD 12/18/2013 Nurse visit Yvonne Cassidy MD 12/12/2013 Nurse visit Yvonne Cassidy MD 12/05/2013 Nurse visit Yvonne Cassidy MD 11/28/2013 Nurse visit Yvonne Cassidy MD 11/21/2013 Nurse visit Yvonne Cassidy MD 11/14/2013 Nurse visit Yvonne Cassidy MD 11/07/2013 Nurse visit Nidia Darby HIGH LEAD YARDER 10/31/2013 Nurse visit Nidia Darby HIGH LEAD YARDER 10/25/2013 Nurse visit Nidia Darby HIGH LEAD YARDER 10/18/2013 Voided Nidia Darby HIGH LEAD YARDER 10/10/2013 Voided Yvonne Cassidy MD 10/03/2013 Nurse [...] Mart MD 04/18/2013 Nurse visit Nidia Darby HIGH LEAD YARDER 04/04/2013 Nurse visit Nidia Darby HIGH LEAD YARDER 03/28/2013 Nurse visit Nidia Darby HIGH LEAD YARDER 03/21/2013 Nurse visit Nidia Darby HIGH LEAD YARDER 03/13/2013 Nurse visit Nidia Darby HIGH LEAD YARDER 03/09/2013 Nurse visit Nidia Darby HIGH LEAD YARDER 03/02/2013 Nurse visit Nidia Darby HIGH LEAD YARDER 02/21/2013 Nurse visit Nidia Darby HIGH LEAD YARDER 02/13/2013 Office visit Nidia Darby HIGH LEAD YARDER 02/06/2013 Nurse visit Bria Mart MD 01/31/2013 [...] Mart MD 10/04/2012 Nurse visit Nidia Darby HIGH LEAD YARDER 09/27/2012 Nurse visit Bria Mart MD 09/22/2012 Nurse visit Bria Mart MD 09/12/2012 Nurse visit Bria Mart MD 09/05/2012 Nurse visit Francisco J Edin ISSA 08/31/2012 Nurse visit Bria Mart MD [...] Mart MD 06/07/2012 Nurse visit Nidia Darby HIGH LEAD YARDER 06/07/2012 Voided Francisco J Edin ISSA 06/01/2012 [...] visit Bria Mart MD 10/06/2011 Nurse visit Bira Mart MD 10/01/2011 Nurse visit Bria Mart MD 09/24/2011 Nurse visit Bria Mart MD 09/17/2011 Nurse visit Bria Mart MD 09/08/2011 Nurse visit Bria Mart MD 09/08/2011 Office visit Jessie Mock HIGH LEAD YARDER 09/01/2011 Nurse visit Bria Mart MD 08/21/2011 [...]
--- OUTSIDE RECORDS SUMMARY | 2017-05-06 13:58 | XMS REPORT ---
Author Author Jessie Mock [facility] Address [address] [place], [place] [id number] Care Team Providers Care Change Management Coordinator Name Role Phone Jessie Mock PCP Unavailable Allergies and Adverse Reactions Name Reaction Notes [...] TAKE 1 TABLET BY MOUTH ONCE DAILY Zyrtec-D 5-120 mg oral tablet extended release 12 hr 02/12/2016 take 1 tablet by oral route 2 times per day atenolol 25 mg oral tablet 02/12/2016 08/10/2016 take 1 tablet (25 mg) by oral route once daily for 30 days Qsymia 3.75-23 mg oral capsule, ER multiphase 24 hr 02/12/2016 05/12/2016 take 1 capsule by oral route once daily in the morning for 14 days Name Start Date Expiration Date SIG Comments [...] by oral route once daily before breakfast Problem List Description Status Onset Asthma Active Hypertension Active hypothyroid Active Vitamin D deficiency Active Hypothyroidism Active 05/18/2013 Stress incontinence, female Active 05/18/2013 Urge incontinence Active 05/18/2013 Breast Lump, right Active 12/31/2014 Vital Signs Date Time BP-Sys(mm[Hg] BP-Karina(mm[Hg]) HR(bpm) RR(rpm) Temp WT HT HC BMI BSA BMI Percentile O2 Sat(%) 02/12/2016 3:02:00 PM 132 mmHg 72 mmHg [...] Reviewed 02/12/2016 12:00 AM IMMUNOTHERAPY INJECTIONS Reviewed 08/21/2011 12:00 AM THER/PROPH/DIAG INJ SC/IM Reviewed 08/21/2011 12:00 AM Depo-Medrol 40 mg NDC#[id number] Reviewed 09/08/2011 12:00 AM IMMUNOTHERAPY INJECTIONS Reviewed [...] Reviewed 11/27/2011 12:00 AM Depo-Medrol 40 mg NDC#[id number] Reviewed 12/01/2011 12:00 AM IMMUNOTHERAPY INJECTIONS Reviewed [...] 02/13/2013 12:00 AM Decadron, Per 1 Mg [facility]# [address]-34 Reviewed 02/13/2013 12:00 AM Depo-Medrol, Per 80 Mg [facility]#3217-5539-17 Reviewed 06/05/2013 12:00 AM MAMMOGRAM SCREENING Returned [...] BILI 0.50 mg/dLCALCIUM 10.10 mg/dLeGFR >60 mL/min/1.73 [id number] 10.0 secsINR 1.0 PTT 28.20 secs 08/28/2014 [...] CVX Influenza 06/02/2010 sanofi pasteur PMC Fluzone [id number] Intramuscular Left Deltoid 06/02/2010 02/25/2010 999 Influenza 05/09/2015 sanofi pasteur PMC Fluzone [id number] Intramuscular Left Deltoid 05/09/2015 02/22/2015 141 History [...] allergic rhinitis type Feb 12 2016 3:04PM Payers Insurance Name Company Name Plan Name Plan Number Policy Number Policy Group Number Start Date [employer] [place] [id number] June [facility] Self Insurance Fund *INVALID State Self Insurance [id number] N/[place] [id number] Wednesday, 2015 History of Encounters Visit Date Visit Type Provider 02/12/2016 Office visit Jessie Mock BRIDGE MAINTAINER 02/03/2016 Nurse visit Yvonne Cassidy MD 01/27/2016 Nurse visit Yvonne Cassidy MD 01/15/2016 Nurse visit Yvonne Cassidy MD 01/08/2016 Office visit Jessie Mock BRIDGE MAINTAINER 12/25/2015 Nurse visit Yvonne Cassidy MD 12/09/2015 Nurse visit Yvonne Cassidy MD 12/02/2015 Nurse visit Yvonne Cassidy MD 11/29/2015 Nurse visit Donte Hastings BRIDGE MAINTAINER 11/28/2015 Nurse visit Jessie Mock BRIDGE MAINTAINER 11/27/2015 Office visit Jessie Mock BRIDGE MAINTAINER 11/25/2015 Office visit Donte Hastings BRIDGE MAINTAINER 11/18/2015 Nurse visit Donte Hastings BRIDGE MAINTAINER 11/11/2015 Nurse visit Jessie Mock BRIDGE MAINTAINER 11/04/2015 Nurse visit Donte Hastings BRIDGE MAINTAINER 10/29/2015 Office visit Jessie Mock BRIDGE MAINTAINER 10/28/2015 Nurse visit Jessie Mock BRIDGE MAINTAINER 10/21/2015 Nurse visit Glenn Tejeda MD 10/15/2015 Nurse visit Francisco J Jesus DO 10/09/2015 Nurse visit Glenn Tejeda MD 10/02/2015 Office visit April Atkinson BRIDGE MAINTAINER 10/01/2015 Nurse visit Jessie Mock BRIDGE MAINTAINER 09/11/2015 Nurse visit Yvonne Cassidy MD 09/05/2015 [...] Office visit 05/29/2015 Office visit Karolyn Millan BRIDGE MAINTAINER 05/29/2015 Nurse visit Yvonne Cassidy MD 05/14/2015 Nurse visit Francisco J Danielsonnola ISSA 05/09/2015 Nurse visit Yvonne Cassidy MD 04/30/2015 Nurse visit Yvonne Cassidy MD 04/23/2015 Nurse visit Yvonne Cassidy MD 04/18/2015 Nurse visit Nidia Darby BRIDGE MAINTAINER 04/09/2015 Nurse visit Yvonne Cassidy MD 04/01/2015 Nurse visit Yvonne Cassidy MD 03/27/[address] Cody Horvath MD 03/25/2015 [facility] Alexander Park MD 03/19/2015 Nurse visit Yvonne Cassidy MD 03/19/2015 Office visit Nidia Darby BRIDGE MAINTAINER 03/04/2015 Nurse visit Yvonne Cassidy MD 02/25/2015 [...] Office visit 12/31/2014 Office visit Karolyn Millan BRIDGE MAINTAINER 12/24/2014 Nurse visit Yvonne Cassidy MD 12/17/2014 Nurse visit Yvonne Cassidy MD 12/13/2014 Nurse visit Yvonne Cassidy MD 11/28/2014 Nurse visit Yovnne Cassidy MD 11/19/2014 Nurse visit Yvonne Cassidy MD 11/12/2014 Nurse visit Yvonne Cassdiy MD 11/05/2014 Nurse visit Yvonne Cassidy MD 11/05/2014 [facility] Alexander Park MD 10/29/2014 Nurse visit Yvonne Cassidy MD 10/24/2014 Nurse visit Yvonne Cassidy MD 10/15/2014 Nurse visit Yvonne Cassidy MD 10/11/2014 Office visit Karolyn Millan BRIDGE MAINTAINER 10/09/2014 Nurse visit Yvonne Cassidy MD 10/04/2014 Nurse visit Yvonne Cassidy MD 09/19/2014 Surgery Karolyn Millan BRIDGE MAINTAINER 09/13/2014 Office visit Yvonne Cassidy MD 09/06/2014 Nurse visit Yvonne Cassidy MD 08/28/2014 [facility] Chauncey Hogan MD 08/28/2014 [facility] Joe Thomas MD 08/23/2014 Nurse visit Yvonne Cassidy MD 08/22/2014 Surgery Joe Thomas MD 08/16/2014 Nurse visit Yvonne Cassidy MD 08/07/2014 Nurse visit Yvonne Cassidy MD 08/01/2014 Nurse visit Jessie Mock BRIDGE MAINTAINER 07/25/2014 Nurse visit Nidia Darby BRIDGE MAINTAINER 07/16/2014 Nurse visit Yvonne Cassidy MD 07/09/2014 [...] Cassidy MD 03/20/2014 Nurse visit Jessie Mock BRIDGE MAINTAINER 03/13/2014 Nurse visit Donte Hastings BRIDGE MAINTAINER 03/07/2014 Nurse visit Yvonne Cassidy MD 02/27/2014 Nurse visit Jessie Mock BRIDGE MAINTAINER 02/20/2014 Nurse visit Donte Hastings BRIDGE MAINTAINER 02/13/2014 Nurse visit Donte Hastings BRIDGE MAINTAINER 02/13/2014 Procedures Joe Thomas MD 02/07/2014 Office visit Joe hTomas MD 02/06/2014 Nurse visit Yvonne Cassidy MD 01/17/2014 Nurse visit Nidia Darby BRIDGE MAINTAINER 01/10/2014 Nurse visit Yvonne Cassidy MD 01/02/2014 Nurse visit Yvonne Cassidy MD 12/26/2013 Nurse visit Yvonne Cassidy MD 12/18/2013 Nurse visit Yvonne Cassidy MD 12/12/2013 Nurse visit Yvonne Cassidy MD 12/05/2013 Nurse visit Yvonne Cassidy MD 11/28/2013 Nurse visit Yvonne Cassidy MD 11/21/2013 Nurse visit Yvonne Cassidy MD 11/14/2013 Nurse visit Yvonne Cassidy MD 11/07/2013 Nurse visit Nidia Darby BRIDGE MAINTAINER 10/31/2013 Nurse visit Nidia Darby BRIDGE MAINTAINER 10/25/2013 Nurse visit Nidia Darby BRIDGE MAINTAINER 10/18/2013 Voided Nidia Darby BRIDGE MAINTAINER 10/10/2013 Voided Yvonne Cassidy MD 10/03/2013 Nurse [...] Bria Mart MD 04/18/2013 Nurse visit Nidia GonzalesZafar Darby BRIDGE MAINTAINER 04/04/2013 Nurse visit Nidia GonzalesZafar Wilner BRIDGE MAINTAINER 03/28/2013 Nurse visit Nidia GonzalesZafar Wilner BRIDGE MAINTAINER 03/21/2013 Nurse visit Nidia GonzalesZafar Wilner BRIDGE MAINTAINER 03/13/2013 Nurse visit Nidia GonzalesZafar Darby BRIDGE MAINTAINER 03/09/2013 Nurse visit Nidia GonzalesZafar Darby BRIDGE MAINTAINER 03/02/2013 Nurse visit Nidia GonzalesZafar Darby BRIDGE MAINTAINER 02/21/2013 Nurse visit Nidia Sheridan Darby BRIDGE MAINTAINER 02/13/2013 Office visit Nidia Darby BRIDGE MAINTAINER 02/06/2013 Nurse visit Bria aMrt MD 01/31/2013 Nurse visit Bria Mart MD [...] Mart MD 10/04/2012 Nurse visit Nidia Darby BRIDGE MAINTAINER 09/27/2012 Nurse visit Bria Mart MD 09/22/2012 [...] Bria Mart MD 06/07/2012 Nurse visit Nidia GonzalesZafar Darby BRIDGE MAINTAINER 06/07/2012 Voided Francisco J Jesus 06/01/2012 Office visit Bria Mart MD 05/24/2012 [...] Bria Mart MD 09/08/2011 Office visit Jessie Nish BRIDGE MAINTAINER 09/01/2011 Nurse visit Bria Mart MD 08/21/2011 [...]
--- OUTSIDE RECORDS SUMMARY | 2017-05-06 14:01 | XMS REPORT ---
Author Author Yvonne Cassidy Organization [facility] Address [address] [place], [place] [id number] Care Team Providers Care Hand Cultivator Name Role Phone Yvonne Cassidy PCP Yvonne Cassidy PreferredProvider Allergies and Adverse Reactions Name Reaction Notes Ceftin rash erythromycin rash PENICILLINS rash Plan of Treatment Planned Activity Comments Planned Date Planned Time Plan/Goal Allergy Injection Multiple 04/18/2015 12:00 AM Allergy Injection Multiple 03/27/2015 12:00 AM Allergy Injection Multiple 07/22/2015 12:00 AM Allergy Injection Multiple 11/11/2015 12:00 AM Allergy Injection Multiple 09/30/2012 12:00 [...] 06/07/2013 12:00 AM dizziness Allergy Injection Multiple 08/23/2014 12:00 AM Allergy [...] TAKE 1 TABLET BY MOUTH ONCE DAILY ProAir HFA 90 mcg/actuation inhalation HFA aerosol inhaler 06/26/2016 INHALE 1-2 PUFFS BY MOUTH EVERY 4 TO 6 HOURS NEEDED Synthroid 137 mcg oral tablet 08/24/2016 take 1 tablet (137 mcg) by oral route once daily for 30 days meloxicam 15 mg oral tablet 12/17/2016 TAKE 1 TABLET BY MOUTH ONCE DAILY for 30 days bupropion HCl 300 mg oral tablet extended release 24 hr 12/17/2016 TAKE 1 TABLET BY MOUTH EVERY DAY Singulair 10 mg oral tablet 02/12/2017 take 1 tablet (10 mg) by oral route once daily in the evening for 30 days furosemide 20 mg oral tablet 03/01/2017 08/28/2017 take 1 tablet (20 mg) by oral route once daily for 30 days levothyroxine 137 mcg oral tablet 03/15/2017 09/11/2017 TAKE 1 TABLET BY MOUTH ONCE EVERY DAY Toprol XL 50 mg oral tablet extended release 24 hr 04/05/2017 take 1 tablet by oral route daily for 30 days meloxicam 15 mg oral tablet 04/06/2017 10/03/2017 TAKE 1 TABLET BY MOUTH ONCE EVERY DAY lovastatin 20 mg oral tablet 04/15/2017 take 1 tablet (20 mg) by oral route once daily with the evening meal for 30 days Name Start Date Expiration Date SIG [...] route every 6 hours for 7 days triamcinolone acetonide 55 mcg nasal aerosol,spray 06/19/2013 [...] a day as needed for 5 days atenolol 25 mg oral tablet 06/16/2016 12/13/2016 take 1 tablet (25 mg) by oral route once daily for 30 days bupropion HCl 300 mg oral tablet extended release 24 hr 06/16/2016 12/13/2016 TAKE 1 TABLET BY MOUTH EVERY DAY meloxicam 15 mg oral tablet 06/16/2016 12/13/2016 TAKE 1 TABLET BY MOUTH ONCE DAILY for 30 days Singulair 10 mg oral tablet 06/16/2016 12/13/2016 take 1 tablet (10 mg) by oral route once daily in the evening for 30 days Zyrtec-D 5-120 mg oral tablet extended release 12 hr 06/16/2016 12/13/2016 take 1 tablet by oral route 2 for 30 days Saxenda 3 mg/0.5 mL (18 mg/3 mL) subcutaneous pen injector 06/16/20162016 inject 0.5 milliliter (3 mg) by subcutaneous route once daily in the abdomen, thigh, or upper arm for 30 days Pen Needle 32 gauge x 532" miscellaneous needle 06/26/2016 07/26/2016 use as directed Synthroid 137 mcg oral tablet 07/09/2016 09/07/2016 take 1 tablet (137 mcg) by oral route once daily for 30 days Discontinued Name Start Date Discontinued Date [...] daily in the morning for 30 days Saxenda 3 mg/0.5 mL (18 mg/3 mL) subcutaneous pen injector 02/20/20162015 Inject 0.6mg daily for 1 week, then 1.2 mg daily for 1 week, then 1.8mg daily for 1 week, then 2.4 mg daily for 1 week, then 3mg daily there after, into abdomen, thigh vertigo prednisone 20 mg oral tablet 03/04/2016 04/01/2016 take 1 tablet by oral route daily Synthroid 175 mcg oral tablet 06/22/2016 10/06/2016 TAKE 1 TABLET BY MOUTH ONCE DAILY atenolol 25 mg oral tablet 12/17/2016 04/05/2017 take 1 tablet (25 mg) by oral route once daily for 30 days atenolol 25 mg oral tablet 12/17/2016 04/05/2017 take 1 tablet (25 mg) by oral route once daily for 30 days change med metoprolol tartrate 50 mg oral tablet 04/05/2017 take 1 tablet (50 mg) by oral route 2 times per day with meals change medication Problem List Description Status Onset Asthma Active Hypertension Active hypothyroid Active Vitamin D deficiency Active Hypothyroidism Active 05/18/2013 Stress incontinence, female Active 05/18/2013 Urge incontinence Active 05/18/2013 Breast Lump, right Active 12/31/2014 Vital Signs Date Time BP-Sys(mm[Hg] BP-Karina(mm[Hg]) HR(bpm) RR(rpm) Temp WT HT HC BMI BSA BMI Percentile O2 Sat(%) 04/05/2017 10:15:00 AM 125 mmHg 69 mmHg 65 bpm 18 rpm 97.7 F 225 lbs 66.5 in 35.77 kg/m2 2.19 m2 97 % 03/01/2017 3:50:00 PM 122 mmHg 96 mmHg 62 bpm 16 rpm 97 F 220.5 lbs 66.5 in 35.0561 kg/m 2.1663 m 97 % 10/06/2016 4:10:00 PM 124 mmHg 74 mmHg 72 bpm 16 rpm 99.3 F 208.25 lbs 66.5 in 33.11 kg/m2 2.11 m2 97 % 06/16/2016 9:14:00 AM 138 mmHg 80 mmHg 72 bpm 16 rpm 98.2 F 204.125 lbs 66.5 in 32.4527 kg/m 2.0843 m 96 % 06/02/2016 3:29:00 PM 135 mmHg 67 mmHg 62 bpm 99.2 F 205 lbs 66.5 in 32.59 kg/m2 2.09 m2 04/23/2016 2:16:00 PM 128 mmHg 76 mmHg 80 bpm 18 rpm 97.3 F 207.6 lbs 66.5 in 33.0052 kg/m 2.102 m 97 % 04/01/2016 9:47:00 AM 126 mmHg [...] INJECTIONS Reviewed 06/12/2015 12:00 AM MAMMOGRAM SCREENING Reviewed 05/29/2015 12:00 AM CYTOPATH TBS C/V MANUAL Reviewed 05/29/2015 12:00 AM ASSAY THYROID STIM HORMONE Reviewed 05/29/2015 12:00 AM LIPID PANEL Reviewed 05/29/2015 12:00 AM MAMMOGRAM BOTH BREASTS Reviewed 05/29/2015 12:00 AM SPECIMEN HANDLING OFFICE-LAB Reviewed 05/29/2015 12:00 AM BIOPSY OF VAGINA Reviewed 06/04/2015 12:00 AM IMMUNOTHERAPY INJECTIONS Reviewed 04/15/2011 [...] Reviewed 11/27/2015 12:00 AM IMMUNOTHERAPY INJECTIONS Reviewed 11/28/2015 12:00 AM NO CHARGE OV Reviewed 11/25/2015 12:00 AM RADEX WRIST COMPLETE MINIMUM 3 VIEWS Reviewed 12/02/2015 12:00 AM IMMUNOTHERAPY INJECTIONS Reviewed 12/09/2015 [...] Reviewed 08/21/2011 12:00 AM Depo-Medrol 40 mg [facility]#[id number] Reviewed 03/02/2016 12:00 AM IMMUNOTHERAPY INJECTIONS Reviewed [...] AM COMPLETE CBC W/AUTO DIFF WBC Reviewed 04/23/2016 12:00 AM COMPREHEN METABOLIC PANEL Reviewed 04/23/2016 12:00 AM LIPID PANEL Reviewed 04/23/2016 12:00 AM ASSAY THYROID STIM HORMONE Reviewed 04/23/2016 12:00 AM MRI BRAIN STEM W/O & W/DYE Reviewed 04/23/2016 12:00 AM ELECTROCARDIOGRAM TRACING Reviewed 09/24/2011 12:00 AM IMMUNOTHERAPY INJECTIONS Reviewed 09/24/2011 12:00 AM IMMUNOTHERAPY INJECTIONS Reviewed 09/24/2011 12:00 AM IMMUNOTHERAPY INJECTIONS Reviewed 04/29/2016 12:00 AM IMMUNOTHERAPY INJECTIONS Reviewed 05/05/2016 12:00 AM IMMUNOTHERAPY INJECTIONS Reviewed 06/02/2016 12:00 AM Screening mammography, bilateral Reviewed 10/01/2011 12:00 AM IMMUNOTHERAPY INJECTIONS Reviewed 05/11/2016 12:00 AM IMMUNOTHERAPY INJECTIONS Reviewed 10/06/2011 12:00 AM IMMUNOTHERAPY INJECTIONS Reviewed 10/13/2011 12:00 AM IMMUNOTHERAPY INJECTIONS Reviewed 04/23/2016 12:00 AM IMMUNOTHERAPY INJECTIONS Reviewed 05/27/2016 12:00 AM IMMUNOTHERAPY INJECTIONS Reviewed 06/01/2016 12:00 AM IMMUNOTHERAPY INJECTIONS Reviewed 06/02/2016 12:00 AM CYTOPATH C/V THIN LAYER Reviewed 06/02/2016 12:00 AM MAMMOGRAM BOTH BREASTS Reviewed 06/02/2016 12:00 AM SPECIMEN HANDLING OFFICE-LAB Reviewed 10/20/2011 12:00 AM IMMUNOTHERAPY INJECTIONS Reviewed 06/09/2016 12:00 AM IMMUNOTHERAPY INJECTIONS Reviewed 06/16/2016 12:00 AM IMMUNOTHERAPY INJECTIONS Reviewed 06/16/2016 12:00 AM ASSAY THYROID STIM HORMONE Returned 06/24/2016 12:00 AM IMMUNOTHERAPY INJECTIONS Reviewed 06/29/2016 12:00 AM PNEUMOCOCCAL VACC 13 SONDRA IM Reviewed 10/29/2011 12:00 AM IMMUNOTHERAPY INJECTIONS Reviewed 07/06/2016 12:00 AM IMMUNOTHERAPY INJECTIONS Reviewed 11/03/2011 12:00 AM IMMUNOTHERAPY INJECTIONS Reviewed 07/14/2016 12:00 AM IMMUNOTHERAPY INJECTIONS Reviewed 11/10/2011 12:00 AM IMMUNOTHERAPY INJECTIONS Reviewed 07/29/2016 12:00 AM IMMUNOTHERAPY INJECTIONS Reviewed 11/17/2011 12:00 AM IMMUNOTHERAPY INJECTIONS Reviewed 08/04/2016 12:00 AM IMMUNOTHERAPY INJECTIONS Reviewed 08/13/2016 12:00 AM IMMUNOTHERAPY INJECTIONS Reviewed 08/19/2016 12:00 AM IMMUNOTHERAPY INJECTIONS Reviewed 11/27/2011 12:00 AM THER/PROPH/DIAG INJ SC/IM Reviewed 11/27/2011 12:00 AM Depo-Medrol 40 mg [facility]#[id number] Reviewed 12/01/2011 12:00 AM IMMUNOTHERAPY INJECTIONS Reviewed 08/25/2016 12:00 AM IMMUNOTHERAPY INJECTIONS Reviewed 09/02/2016 12:00 AM IMMUNOTHERAPY INJECTIONS Reviewed 12/08/2011 12:00 AM IMMUNOTHERAPY INJECTIONS Reviewed 09/08/2016 12:00 AM IMMUNOTHERAPY INJECTIONS Reviewed 09/15/2016 12:00 AM IMMUNOTHERAPY INJECTIONS Reviewed 12/18/2011 12:00 AM IMMUNOTHERAPY INJECTIONS Reviewed 12/22/2011 12:00 AM IMMUNOTHERAPY INJECTIONS Reviewed 12/29/2011 12:00 AM IMMUNOTHERAPY INJECTIONS Reviewed 01/05/2012 12:00 AM IMMUNOTHERAPY INJECTIONS Reviewed 01/05/2012 12:00 AM THER/PROPH/DIAG INJ SC/IM Reviewed 01/12/2012 12:00 AM IMMUNOTHERAPY INJECTIONS Reviewed 10/28/2016 12:00 AM IMMUNOTHERAPY INJECTIONS Reviewed 11/10/2016 12:00 AM IMMUNOTHERAPY INJECTIONS Reviewed 01/26/2012 12:00 AM IMMUNOTHERAPY INJECTIONS Reviewed 11/16/2016 12:00 AM IMMUNOTHERAPY INJECTIONS Reviewed 11/02/2016 12:00 AM IMMUNOTHERAPY INJECTIONS Reviewed 02/02/2012 12:00 AM IMMUNOTHERAPY INJECTIONS Reviewed 12/02/2016 12:00 AM IMMUNOTHERAPY INJECTIONS Reviewed 02/08/2012 12:00 AM IMMUNOTHERAPY INJECTIONS Reviewed 12/08/2016 12:00 AM IMMUNOTHERAPY INJECTIONS Reviewed 02/15/2012 12:00 AM IMMUNOTHERAPY INJECTIONS Reviewed 12/22/2016 12:00 AM IMMUNOTHERAPY INJECTIONS Reviewed 12/30/2016 12:00 AM IMMUNOTHERAPY INJECTIONS Reviewed 02/25/2012 12:00 AM IMMUNOTHERAPY INJECTIONS Reviewed 01/05/2017 12:00 AM IMMUNOTHERAPY INJECTIONS Reviewed 01/12/2017 12:00 AM IMMUNOTHERAPY INJECTIONS Reviewed 03/01/2012 12:00 AM IMMUNOTHERAPY INJECTIONS Reviewed 03/01/2012 12:00 AM IMMUNOTHERAPY INJECTIONS Reviewed 01/25/2017 12:00 AM IMMUNOTHERAPY INJECTIONS Reviewed 03/08/2012 12:00 AM IMMUNOTHERAPY INJECTIONS Reviewed 02/01/2017 12:00 AM IMMUNOTHERAPY INJECTIONS Reviewed 03/15/2012 12:00 AM IMMUNOTHERAPY INJECTIONS Reviewed 02/09/2017 12:00 AM IMMUNOTHERAPY INJECTIONS Reviewed 03/22/2012 12:00 AM IMMUNOTHERAPY INJECTIONS Reviewed 02/17/2017 12:00 AM IMMUNOTHERAPY INJECTIONS Reviewed 02/23/2017 12:00 AM IMMUNOTHERAPY INJECTIONS Reviewed 02/24/2017 12:00 AM ASSAY THYROID STIM HORMONE Returned 02/24/2017 12:00 AM ASSAY OF TOTAL THYROXINE Returned 03/01/2017 12:00 AM IMMUNOTHERAPY INJECTIONS Reviewed 03/29/2012 12:00 AM IMMUNOTHERAPY INJECTIONS Reviewed 03/08/2017 12:00 AM IMMUNOTHERAPY INJECTIONS Reviewed 04/05/2012 12:00 AM IMMUNOTHERAPY INJECTIONS Reviewed 03/15/2017 12:00 AM IMMUNOTHERAPY INJECTIONS Reviewed 03/01/2017 12:00 AM METABOLIC PANEL TOTAL CA Returned 03/01/2017 12:00 AM COMPLETE CBC W/AUTO DIFF WBC Returned 03/01/2017 12:00 AM LIPID PANEL Returned 03/01/2017 12:00 AM GLYCOSYLATED HEMOGLOBIN TEST Returned 03/24/2017 12:00 AM IMMUNOTHERAPY INJECTIONS Reviewed 03/30/2017 12:00 AM IMMUNOTHERAPY INJECTIONS Reviewed 04/05/2017 12:00 AM IMMUNOTHERAPY INJECTIONS Reviewed 04/05/2017 12:00 AM ASSAY OF MAGNESIUM Reviewed 04/21/2012 12:00 AM IMMUNOTHERAPY INJECTIONS Reviewed 04/26/2012 12:00 AM IMMUNOTHERAPY INJECTIONS Reviewed 2017 12:00 AM IMMUNOTHERAPY INJECTIONS Reviewed 05/03/2012 12:00 AM IMMUNOTHERAPY INJECTIONS Reviewed 04/28/2017 12:00 AM IMMUNOTHERAPY INJECTIONS Reviewed 05/10/2012 12:00 AM IMMUNOTHERAPY INJECTIONS Reviewed 05/17/2012 12:00 AM IMMUNOTHERAPY INJECTIONS Reviewed 05/18/2012 12:00 AM IMMUNOTHERAPY INJECTIONS Reviewed 05/24/2012 12:00 AM IMMUNOTHERAPY INJECTIONS Reviewed 06/01/2012 12:00 AM CYTOPATH C/V MANUAL Reviewed 06/01/2012 12:00 AM SMEAR WET [place] SALINE/INK Reviewed 06/07/2012 12:00 AM IMMUNOTHERAPY INJECTIONS Reviewed 06/14/2012 [...] 02/13/2013 12:00 AM Decadron, Per 1 Mg [facility]# [id number] Reviewed 02/13/2013 12:00 AM Depo-Medrol, Per 80 Mg [facility]#[id number] Reviewed 06/05/2013 12:00 AM MAMMOGRAM SCREENING Reviewed 05/18/2013 12:00 AM CYTOPATH TBS C/V MANUAL Reviewed 05/18/2013 12:00 AM SPECIMEN HANDLING OFFICE-LAB Reviewed 05/18/2013 12:00 AM ASSAY OF GONADOTROPIN (FSH) Reviewed 05/18/2013 12:00 AM URINALYSIS AUTO W/SCOPE Reviewed 05/18/2013 12:00 AM ASSAY THYROID STIM HORMONE Reviewed 05/18/2013 12:00 AM GLYCOSYLATED HEMOGLOBIN TEST Reviewed 05/18/2013 12:00 AM VIT D 1 25-DIHYDROXY Reviewed 05/18/2013 12:00 AM MAMMOGRAM SCREENING Reviewed 06/01/2013 12:00 AM INSERT PESSARY/OTHER DEVICE Reviewed 06/01/2013 12:00 AM PESSARY, NON RUBBER, ANY TYPE Reviewed 06/14/2013 12:00 AM METABOLIC PANEL TOTAL CA Reviewed 06/14/2013 12:00 AM COMPLETE CBC W/AUTO DIFF WBC Reviewed 06/14/2013 12:00 AM IMMUNOTHERAPY ONE INJECTION Reviewed 06/14/2013 12:00 AM REMOVAL OF SKIN TAGS <W/15 Reviewed 06/14/2013 12:00 AM DESTRUCT B9 LESION 1-14 Reviewed 06/14/2013 12:00 AM DESTRUCT PREMALG LES 2-14 Reviewed 06/19/2013 12:00 AM IMMUNOTHERAPY INJECTIONS Reviewed 06/14/2013 12:00 AM IMMUNOTHERAPY INJECTIONS Reviewed 08/08/2013 12:00 AM IMMUNOTHERAPY INJECTIONS Reviewed 08/14/2013 12:00 AM IMMUNOTHERAPY INJECTIONS Reviewed 09/05/2013 12:00 AM IMMUNOTHERAPY INJECTIONS Reviewed 09/13/2013 12:00 AM US EXAM PELVIC COMPLETE Reviewed 09/08/2013 12:00 AM ASSAY OF MAGNESIUM Reviewed 09/08/2013 12:00 AM ASSAY OF SERUM POTASSIUM Reviewed 07/04/2013 12:00 AM IMMUNOTHERAPY INJECTIONS Reviewed 10/04/2013 12:00 AM IMMUNOTHERAPY INJECTIONS Reviewed 10/25/2013 12:00 AM IMMUNOTHERAPY INJECTIONS Reviewed 06/26/2013 12:00 AM IMMUNOTHERAPY INJECTIONS Reviewed 07/20/2013 12:00 AM IMMUNOTHERAPY INJECTIONS Reviewed 08/01/2013 12:00 AM IMMUNOTHERAPY INJECTIONS Reviewed 08/21/2013 12:00 AM IMMUNOTHERAPY INJECTIONS Reviewed 08/29/2013 12:00 AM IMMUNOTHERAPY INJECTIONS Reviewed 09/15/2013 12:00 AM IMMUNOTHERAPY INJECTIONS Reviewed 10/31/2013 12:00 AM IMMUNOTHERAPY INJECTIONS Reviewed 11/07/2013 12:00 AM IMMUNOTHERAPY INJECTIONS Reviewed 11/14/2013 12:00 AM IMMUNOTHERAPY INJECTIONS Reviewed 11/21/2013 12:00 AM IMMUNOTHERAPY INJECTIONS Reviewed 11/28/2013 12:00 AM IMMUNOTHERAPY INJECTIONS Reviewed 12/05/2013 12:00 AM IMMUNOTHERAPY INJECTIONS Reviewed 12/12/2013 12:00 AM IMMUNOTHERAPY INJECTIONS Reviewed 12/18/2013 12:00 AM IMMUNOTHERAPY INJECTIONS Reviewed 05/26/2010 12:00 AM ASSAY THYROID STIM HORMONE Reviewed 05/26/2010 12:00 AM MAMMOGRAM SCREENING Reviewed 05/26/2010 12:00 AM IMMUNIZATION ADMIN Reviewed 05/26/2010 12:00 AM FLU VACCINE 3 YRS & > IM Reviewed 06/03/2010 12:00 AM THER/PROPH/DIAG INJ SC/IM Reviewed 06/03/2010 12:00 AM Depo-Medrol 120 Mg Im ILEANA Reviewed 12/26/2013 12:00 AM IMMUNOTHERAPY ONE INJECTION Reviewed 01/02/2014 12:00 AM IMMUNOTHERAPY ONE INJECTION Reviewed 01/10/2014 12:00 AM IMMUNOTHERAPY ONE INJECTION Reviewed 01/10/2014 12:00 AM IMMUNOTHERAPY ONE INJECTION Reviewed 01/17/2014 12:00 AM IMMUNOTHERAPY ONE INJECTION Reviewed 02/06/2014 12:00 AM IMMUNOTHERAPY ONE INJECTION Reviewed 02/13/2014 2:52 PM URINE TEST Reviewed 02/13/2014 12:00 AM BIOPSY OF UTERUS LINING Reviewed 02/13/2014 12:00 AM BX DONE W/COLPOSCOPY ADD-ON Reviewed 02/13/2014 12:00 AM URINALYSIS Reviewed 02/13/2014 12:00 AM IMMUNOTHERAPY ONE INJECTION Reviewed 02/20/2014 12:00 AM IMMUNOTHERAPY ONE INJECTION Reviewed 02/27/2014 12:00 AM IMMUNOTHERAPY INJECTIONS Reviewed 03/13/2014 12:00 AM IMMUNOTHERAPY INJECTIONS Reviewed 03/20/2014 12:00 AM IMMUNOTHERAPY ONE INJECTION Reviewed 2014 12:00 AM IMMUNOTHERAPY INJECTIONS Reviewed 05/03/2014 12:00 AM MAMMOGRAM BOTH BREASTS Reviewed 05/08/2014 12:00 AM IMMUNOTHERAPY INJECTIONS Reviewed 05/09/2014 12:00 AM CYTOPATH TBS C/V MANUAL Reviewed 05/09/2014 12:00 AM SPECIMEN HANDLING OFFICE-LAB Reviewed 05/17/2014 12:00 AM US EXAM PELVIC COMPLETE Reviewed 05/17/2014 12:00 AM TRANSVAGINAL US NON-OB Reviewed 04/30/2014 12:00 AM METABOLIC PANEL TOTAL CA Reviewed 04/30/2014 12:00 AM COMPLETE CBC W/AUTO DIFF WBC Reviewed 04/30/2014 12:00 AM ASSAY THYROID STIM HORMONE Reviewed 04/30/2014 12:00 AM ASSAY OF MAGNESIUM Reviewed 06/12/2014 12:00 AM IMMUNOTHERAPY INJECTIONS Reviewed 03/07/2014 12:00 AM IMMUNOTHERAPY INJECTIONS Reviewed 07/16/2014 12:00 AM IMMUNOTHERAPY ONE INJECTION Reviewed 07/16/2014 12:00 AM IMMUNOTHERAPY INJECTIONS Reviewed 07/09/2014 12:00 AM IMMUNOTHERAPY INJECTIONS Reviewed 05/15/2014 12:00 AM IMMUNOTHERAPY INJECTIONS Reviewed 05/21/2014 12:00 AM IMMUNOTHERAPY INJECTIONS Reviewed 05/30/2014 12:00 AM IMMUNOTHERAPY INJECTIONS Reviewed 06/20/2014 12:00 AM IMMUNOTHERAPY INJECTIONS Reviewed 06/28/2014 12:00 AM IMMUNOTHERAPY INJECTIONS Reviewed 07/03/2014 12:00 AM IMMUNOTHERAPY INJECTIONS Reviewed 04/02/2014 12:00 AM IMMUNOTHERAPY INJECTIONS Reviewed 04/10/2014 12:00 AM IMMUNOTHERAPY INJECTIONS Reviewed 07/25/2014 12:00 AM IMMUNOTHERAPY INJECTIONS Reviewed 08/01/2014 12:00 AM IMMUNOTHERAPY INJECTIONS Reviewed 08/07/2014 12:00 AM IMMUNOTHERAPY INJECTIONS Reviewed 08/16/2014 12:00 AM IMMUNOTHERAPY INJECTIONS Reviewed 08/22/2014 12:00 AM COMPLETE CBC W/AUTO DIFF WBC Reviewed 08/22/2014 12:00 AM COMPREHEN METABOLIC PANEL Reviewed 08/22/2014 12:00 AM Type and screen Reviewed 08/22/2014 12:00 AM PROTHROMBIN TIME Reviewed 11/12/2010 12:00 AM CYTOPATH C/V MANUAL Reviewed 11/12/2010 12:00 AM ASSAY THYROID STIM HORMONE Reviewed 10/04/2014 12:00 AM IMMUNOTHERAPY INJECTIONS Reviewed 10/09/2014 12:00 AM IMMUNOTHERAPY INJECTIONS Reviewed 10/15/2014 12:00 AM IMMUNOTHERAPY INJECTIONS Reviewed 10/24/2014 12:00 AM IMMUNOTHERAPY INJECTIONS Reviewed 12/30/2010 12:00 AM THER/PROPH/DIAG INJ SC/IM Reviewed 12/30/2010 12:00 AM Depo-Medrol 120 Mg Im ILEANA Reviewed 12/31/2014 12:00 AM MAMMOGRAM BOTH BREASTS Reviewed 12/31/2014 12:00 AM Breast ultrasonography Reviewed 12/31/2014 12:00 AM Breast ultrasound Reviewed 12/31/2014 12:00 AM COMPUTER DX MAMMOGRAM ADD-ON Reviewed 02/11/2015 12:00 AM IMMUNOTHERAPY INJECTIONS Reviewed 02/11/2015 12:00 AM IMMUNOTHERAPY ONE INJECTION Reviewed 04/01/2015 12:00 AM IMMUNOTHERAPY INJECTIONS Reviewed Results Summary Date and Description Results 06/01/2012 4:58 PM WET PREP NO TRICH [...] PROTIME 10.0 secsINR 1.0 PTT 28.20 secs 06/17/2015 7:45 AM TRIGLYCERIDES 136.0 mg/dLCHOLESTEROL 210.0 [...] 0.23 #BASO 0.07 MANUAL DIFF NOT IND 04/05/2017 11:22 AM MAGNESIUM 2.20 mg/dL History Of Immunizations Name Date Admin Mfg Name Mfg Code Trade Name Lot# Route Inj Vis Given Vis Pub CVX Influenza 06/02/2010 sanofi pasteur PMC Fluzone [id number] Intramuscular Left Deltoid 06/02/2010 02/25/2010 999 Influenza 05/09/2015 sanofi pasteur PMC Fluzone [id number] Intramuscular Left Deltoid 05/09/2015 02/22/2015 141 Pneumococcal 06/29/2016 Vtusx-Labnpk-Povxoie-Diana WAL Prevnar 13 [id number] Intramuscular Right Deltoid 06/29/2016 09/14/2012 133 Zostavax 10/16/2014 [employer] MSD ZOSTAVAX Not Entered Not Entered 07/19/2017 07/19/2017 121 History of Past Illness Name Date of [...] to other allergen May 27 2016 4:02PM Allergic rhinitis; due to other allergen Jun 01 2016 4:37PM Routine gynecological examination Jun 02 2016 3:32PM Screening mammogram, encounter for Jun 02 2016 3:32PM Allergic rhinitis; due to other allergen Jun 09 2016 4:06PM Allergic rhinitis; due to other allergen Jun 16 2016 9:31AM Hypertension Jun 16 2016 9:19AM Allergic Rhinitis Jun 16 2016 9:19AM Hypothyroidism, Acquired Jun 16 2016 9:19AM Asthma Jun 16 2016 9:19AM Abnormal fasting glucose Jun 16 2016 9:19AM Bunion of great toe Jun 16 2016 9:19AM BPV (benign positional vertigo) Jun 16 2016 9:19AM Hypothyroidism, Acquired Jun 16 2016 2:19PM Allergic rhinitis; due to other allergen Jun 24 2016 3:48PM Need for pneumococcal vaccine Jun 29 2016 3:33PM Allergic rhinitis; due to other allergen Jul 06 2016 2:23PM Allergic rhinitis; due to other allergen Jul 14 2016 2:18PM Allergic rhinitis; due to other allergen Jul 29 2016 2:23PM Allergic rhinitis; due to pollen Aug 04 2016 3:22PM Allergic rhinitis; due to other allergen Aug 04 2016 3:22PM Allergic rhinitis; due to other allergen Aug 13 2016 3:55PM Allergic rhinitis; due to other allergen Aug 19 2016 3:46PM Allergic rhinitis; due to other allergen Aug 25 2016 3:51PM Allergic rhinitis; due to other allergen Sep 02 2016 4:36PM Allergic rhinitis; due to other allergen Sep 08 2016 4:09PM Allergic rhinitis; due to other allergen Sep 15 2016 4:19PM Contact dermatitis and eczema Oct 06 2016 4:16PM Allergic rhinitis; due to other allergen Oct 28 2016 4:13PM Allergic rhinitis; due to other allergen Nov 10 2016 4:37PM Allergic rhinitis; due to other allergen Nov 16 2016 4:28PM Allergic rhinitis; due to other allergen Nov 18 2016 2:26PM Allergic rhinitis; due to other allergen Dec 02 2016 4:11PM Allergic rhinitis; due to other allergen Dec 08 2016 4:16PM Allergic rhinitis; due to other allergen Dec 22 2016 3:55PM Allergic rhinitis; due to other allergen Dec 30 2016 3:27PM Allergic rhinitis; due to other allergen Jan 05 2017 4:05PM Allergic rhinitis; due to other allergen Jan 12 2017 3:46PM Allergic rhinitis; due to other allergen Jan 25 2017 3:43PM Allergic rhinitis; due to other allergen Feb 01 2017 4:00PM Allergic rhinitis; due to other allergen Feb 09 2017 4:02PM Allergic rhinitis; due to other allergen Feb 17 2017 3:57PM Allergic rhinitis; due to other allergen Feb 23 2017 4:13PM Hypothyroidism, Acquired Feb 24 2017 11:17AM Allergic rhinitis; due to other allergen Mar 01 2017 4:07PM Blood pressure check Mar 01 2017 3:51PM Elevated fasting glucose Mar 01 2017 3:51PM Allergic rhinitis; due to other allergen Mar 08 2017 4:47PM Allergic rhinitis; due to other allergen Mar 15 2017 3:52PM Hypothyroidism, Acquired Mar 01 2017 3:51PM Weight Gain, Abnormal Mar 01 2017 3:51PM Vitamin D deficiency Mar 01 2017 3:51PM History of parathyroid surgery Mar 01 2017 3:51PM Allergic rhinitis; due to other allergen Mar 24 2017 3:58PM Allergic rhinitis; due to other allergen Mar 30 2017 4:14PM SVT (supraventricular tachycardia) Apr 05 2017 10:17AM Allergic rhinitis; due to other allergen Apr 05 2017 11:20AM Hypothyroidism, Acquired Apr 05 2017 10:17AM Localized edema Apr 05 2017 10:17AM Allergic rhinitis; due to other allergen 2017 3:48PM Allergic rhinitis; due to other allergen Apr 28 2017 4:32PM Payers Insurance Name Company Name Plan Name Plan Number Policy Number Policy Group Number Start Date [facility] [id number] June zState Self Insurance Fund *INVALID State Self Insurance [id number] N/A Comp [place] [id number] Wednesday, 2015 History of Encounters Visit Date Visit Type Provider 04/28/2017 Nurse visit Yvonne Cassidy MD 2017 Nurse visit Yvonne Cassidy MD 04/05/2017 Office visit Jessie Mock [employer] INSTALLATIONS SUPERVISOR 03/30/2017 Nurse visit Yvonne Cassidy MD 03/24/2017 Nurse visit Yvonne Cassidy MD 03/15/2017 Nurse visit Yvonne Cassidy MD 03/08/2017 Nurse visit Yvonne Cassidy MD 03/01/2017 Office visit Yvonne Cassidy MD 02/23/2017 Nurse visit Yvonne Cassidy MD 02/17/2017 Nurse visit Yvonne Cassidy MD 02/09/2017 Nurse visit Yvonne Cassidy MD 02/01/2017 Nurse visit Yvonne Cassidy MD 01/25/2017 Nurse visit Yvonne Cassidy MD 01/12/2017 Nurse visit Yvonne Cassidy MD 01/05/2017 Nurse visit Yvonne Cassidy MD 12/30/2016 Nurse visit Yvonne Cassidy MD 12/22/2016 Nurse visit Yvonne Cassidy MD 12/08/2016 Nurse visit Donte Hastings CAR INSTALLATIONS SUPERVISOR 12/02/2016 Nurse visit Yvonne Cassidy MD 11/16/2016 Nurse visit Yvonne Cassidy MD 11/10/2016 Nurse visit Yvonne Cassidy MD 11/02/2016 Nurse visit Donet Hastings CAR INSTALLATIONS SUPERVISOR 10/28/2016 Nurse visit Yvonne Cassidy MD 10/06/2016 Office visit MAGI GOMEZ DO 09/15/2016 Nurse visit Francisco J Jesus DO 09/08/2016 Nurse visit Francisco J Jesus DO 09/02/2016 Nurse visit Yvonne Cassidy MD 08/25/2016 Nurse visit Yvonne Cassidy MD 08/19/2016 Nurse visit Yvonne Cassidy MD 08/13/2016 Nurse visit Yvonne Cassidy MD 08/04/2016 Nurse visit Yvonne Cassidy MD 07/29/2016 Nurse visit Yvonne Cassidy MD 07/14/2016 Nurse visit Donte Hastings [employer] INSTALLATIONS SUPERVISOR 07/06/2016 Nurse visit Yvonne Cassidy MD 06/29/2016 Nurse visit Yvonne Cassidy MD 06/24/2016 Nurse visit Yvonne Cassidy MD 06/16/2016 Office visit Yvonne Cassidy MD 06/14/2016 [facility] [place] MD 06/09/2016 Nurse visit Yvonne Cassidy MD 06/02/2016 Office visit 06/02/2016 Office visit Karolyn Millan CAR INSTALLATIONS SUPERVISOR 06/01/2016 Nurse visit Yvonne Cassidy MD 05/27/2016 Nurse visit Yvonne Cassidy MD 05/11/2016 Nurse visit Yvonne Cassidy MD 05/05/2016 Nurse visit Yvonne Cassidy MD 04/29/2016 Nurse visit Yvonne Cassidy MD 04/23/2016 Office visit Jessie Mock [employer] INSTALLATIONS SUPERVISOR 04/13/2016 Nurse visit Yvonne Cassidy MD 04/07/2016 Nurse visit Yvonne Cassidy MD 04/01/2016 Office visit Jessie Mock CAR INSTALLATIONS SUPERVISOR 03/26/2016 Nurse visit Yvonne Cassidy MD 03/17/2016 Nurse visit Yvonne Cassidy MD 03/11/2016 Nurse visit Yvonne Cassidy MD 03/04/2016 Office visit Jessie Mock CAR INSTALLATIONS SUPERVISOR 03/02/2016 Nurse visit Yvonne Cassidy MD 02/19/2016 Nurse visit Yvonne Cassidy MD 02/12/2016 Office visit Jessie Mock CAR INSTALLATIONS SUPERVISOR 02/03/2016 Nurse visit Yvonne Cassidy MD 01/27/2016 Nurse visit Yvonne Cassidy MD 01/15/2016 Nurse visit Yvonne Cassidy MD 01/08/2016 Office visit Jessie Mock CAR INSTALLATIONS SUPERVISOR 12/25/2015 Nurse visit Yvonne Cassidy MD 12/09/2015 Nurse visit Yvonne Cassidy MD 12/02/2015 Nurse visit Yvonne Cassidy MD 11/29/2015 Nurse visit Donte Hastings CAR INSTALLATIONS SUPERVISOR 11/28/2015 Nurse visit Jessie Mock CAR INSTALLATIONS SUPERVISOR 11/27/2015 Office visit Jessie Mock CAR INSTALLATIONS SUPERVISOR 11/25/2015 Office visit Donte Hastings CAR INSTALLATIONS SUPERVISOR 11/18/2015 Nurse visit Donte Hastings CAR INSTALLATIONS SUPERVISOR 11/11/2015 Nurse visit Jessie Mock CAR INSTALLATIONS SUPERVISOR 11/04/2015 Nurse visit Donte Hastings CAR INSTALLATIONS SUPERVISOR 10/29/2015 Office visit Jessie Mock CAR INSTALLATIONS SUPERVISOR 10/28/2015 Nurse visit Jessie Mock CAR INSTALLATIONS SUPERVISOR 10/21/2015 Nurse visit Glenn Tejeda MD 10/15/2015 Nurse visit Francisco J Jesus DO 10/09/2015 Nurse visit Glenn Tejeda MD 10/02/2015 Office visit April Atkinson CAR INSTALLATIONS SUPERVISOR 10/01/2015 Nurse visit Jessie Mock CAR INSTALLATIONS SUPERVISOR 09/11/2015 Nurse visit Yvonne Cassidy MD [...] Office visit 05/29/2015 Office visit Karolyn Millan CAR INSTALLATIONS SUPERVISOR 05/29/2015 Nurse visit Yvonne Cassidy MD 05/14/2015 Nurse visit Francisco J Jesus DO 05/09/2015 Nurse visit Yvonne Cassidy MD 04/30/2015 Nurse visit Yvonne Cassidy MD 04/23/2015 Nurse visit Yvonne Cassidy MD 04/18/2015 Nurse visit Nidia Darby CAR INSTALLATIONS SUPERVISOR 04/09/2015 Nurse visit Yvonne Cassidy MD 04/01/2015 Nurse visit Yvonne Cassidy MD 03/27/[address] Cody Horvath MD 03/25/2015 [facility] Alexander Park MD 03/19/2015 Nurse visit Yvonne Cassidy MD 03/19/2015 Office visit Nidia Darby CAR INSTALLATIONS SUPERVISOR 03/04/2015 Nurse visit Yvonne Cassidy MD [...] Office visit 12/31/2014 Office visit Karolyn Millan CAR INSTALLATIONS SUPERVISOR 12/24/2014 Nurse visit Yvonne Cassidy MD 12/17/2014 Nurse visit Yvonne Cassidy MD 12/13/2014 Nurse visit Yvonne Cassidy MD 11/28/2014 Nurse visit Yvonne Cassidy MD 11/19/2014 Nurse visit Yvonne Cassidy MD 11/12/2014 Nurse visit Yvonne Cassidy MD 11/05/2014 Nurse visit Yvonne Cassidy MD 11/05/2014 Hospital Darin Park MD 10/29/2014 Nurse visit Yvonne Cassidy MD 10/24/2014 Nurse visit Yvonne Cassidy MD 10/15/2014 Nurse visit Yvonne Cassidy MD 10/11/2014 Office visit Karolyn Millan CAR INSTALLATIONS SUPERVISOR 10/09/2014 Nurse visit Yvonne Cassidy MD 10/04/2014 Nurse visit Yvonne Cassidy MD 09/19/2014 Surgery Karolyn Millan CAR INSTALLATIONS SUPERVISOR 09/13/2014 Office visit Yvonne Cassidy MD 09/06/2014 Nurse visit Yvonne Cassidy MD 08/28/2014 [facility] Chauncey Hogan MD 08/28/2014 [facility] Joe Thomas MD 08/23/2014 Nurse visit Yvonne Cassidy MD 08/22/2014 Surgery Joe Thomas MD 08/16/2014 Nurse visit Yvonne Cassidy MD 08/07/2014 Nurse visit Yvonne Cassidy MD 08/01/2014 Nurse visit Jessie Mock CAR INSTALLATIONS SUPERVISOR 07/25/2014 Nurse visit Nidia Darby CAR INSTALLATIONS SUPERVISOR 07/16/2014 Nurse visit Yvonne Cassidy MD [...] Cassidy MD 03/20/2014 Nurse visit Jessie Mock CAR INSTALLATIONS SUPERVISOR 03/13/2014 Nurse visit Donte Hastings CAR INSTALLATIONS SUPERVISOR 03/07/2014 Nurse visit Yvonne Cassidy MD 02/27/2014 Nurse visit Jessie Mock CAR INSTALLATIONS SUPERVISOR 02/20/2014 Nurse visit Donte Hastings CAR INSTALLATIONS SUPERVISOR 02/13/2014 Nurse visit Donte Hastings CAR INSTALLATIONS SUPERVISOR 02/13/2014 Procedures Joe Thomas MD 02/07/2014 Office visit Joe Thomas MD 02/06/2014 Nurse visit Yvonne Cassidy MD 01/17/2014 Nurse visit Nidia Darby CAR INSTALLATIONS SUPERVISOR 01/10/2014 Nurse visit Yvonne Cassidy MD 01/02/2014 Nurse visit Yvonne Cassidy MD 12/26/2013 Nurse visit Yvonne Cassidy MD 12/18/2013 Nurse visit Yvonne Cassidy MD 12/12/2013 Nurse visit Yvonne Cassidy MD 12/05/2013 Nurse visit Yvonne Cassidy MD 11/28/2013 Nurse visit Yvonne Cassidy MD 11/21/2013 Nurse visit Yvonne Cassidy MD 11/14/2013 Nurse visit Yvonne Cassidy MD 11/07/2013 Nurse visit Nidia Darby CAR INSTALLATIONS SUPERVISOR 10/31/2013 Nurse visit Nidia Darby CAR INSTALLATIONS SUPERVISOR 10/25/2013 Nurse visit Nidia Darby CAR INSTALLATIONS SUPERVISOR 10/18/2013 Voided Nidia Darby CAR INSTALLATIONS SUPERVISOR 10/10/2013 Voided Yvonne Cassidy MD 10/03/2013 [...] Mart MD 04/18/2013 Nurse visit Nidia Darby CAR INSTALLATIONS SUPERVISOR 04/04/2013 Nurse visit Nidia Darby CAR INSTALLATIONS SUPERVISOR 03/28/2013 Nurse visit Nidia Darby CAR INSTALLATIONS SUPERVISOR 03/21/2013 Nurse visit Nidia Darby CAR INSTALLATIONS SUPERVISOR 03/13/2013 Nurse visit Nidia Darby CAR INSTALLATIONS SUPERVISOR 03/09/2013 Nurse visit Nidia Darby CAR INSTALLATIONS SUPERVISOR 03/02/2013 Nurse visit Nidia Darby CAR INSTALLATIONS SUPERVISOR 02/21/2013 Nurse visit Nidia Darby CAR INSTALLATIONS SUPERVISOR 02/13/2013 Office visit Nidia Darby CAR INSTALLATIONS SUPERVISOR 02/06/2013 Nurse visit Bria Mart MD [...] Mart MD 10/04/2012 Nurse visit Nidia Darby CAR INSTALLATIONS SUPERVISOR 09/27/2012 Nurse visit Bria Mart MD 09/22/2012 Nurse visit Bria Mart MD 09/12/2012 Nurse visit Bria Mart MD 09/05/2012 Nurse visit Francisco J Edin DO 08/31/2012 Nurse visit Bria Mart MD [...] Mart MD 06/07/2012 Nurse visit Nidia Darby CAR INSTALLATIONS SUPERVISOR 06/07/2012 Voided Francisco J Jesus DO [...] Bria Mart MD 10/29/2011 Nurse visit Bria aMrt MD 10/20/2011 Nurse visit Bria Mart MD 10/13/2011 Nurse visit Bria Mart MD 10/06/2011 Nurse visit Bria Mart MD 10/01/2011 Nurse visit Bria Mart MD 09/24/2011 Nurse visit Bria Mart MD 09/17/2011 Nurse visit Bria Mart MD 09/08/2011 Nurse visit Bria Mart MD 09/08/2011 Office visit Jessie Mock CAR INSTALLATIONS SUPERVISOR 09/01/2011 Nurse visit Bria Mart MD [...] Bria Mart MD 02/25/2011 Office visit Bria aMrt MD 12/30/2010 Office visit Bria Mart MD 11/12/2010 Office visit Bria Mart MD 06/03/2010 Office visit Bria Mart MD 05/26/2010 Office visit Bria Mart MD 11/07/2009 Office visit Bria Mart MD 05/29/2009 Office visit Marium GOLDEN
--- OUTSIDE RECORDS SUMMARY | 2017-05-06 14:04 | XMS REPORT ---
Author Author Yvonne Cassidy Organization [facility] Address [address] [place], [place] [id number] Care Team Providers Care Group Worker Name Role Phone Yvonne Cassidy PCP Yvonne [...] ONCE DAILY atenolol 25 mg oral tablet 06/16/2016 12/13/2016 [...] thigh, or upper arm for 30 days ProAir HFA 90 mcg/actuation inhalation HFA aerosol inhaler 06/26/2016 INHALE 1-2 PUFFS BY MOUTH EVERY 4 TO 6 HOURS NEEDED Synthroid 137 mcg oral tablet 08/24/2016 take 1 tablet (137 mcg) by oral route once daily for 30 days Name Start Date Expiration [...] a day as needed for 5 days Pen Needle 32 gauge x 5/32" miscellaneous needle 06/26/2016 07/26/2016 use as directed [...] TAKE 1 TABLET BY MOUTH ONCE DAILY Problem List Description Status Onset Asthma Active Hypertension Active hypothyroid Active Vitamin D deficiency Active Hypothyroidism Active 05/18/2013 Stress incontinence, female Active 05/18/2013 Urge incontinence Active 05/18/2013 Breast Lump, right Active 12/31/2014 Vital Signs Date Time BP-Sys(mm[Hg] BP-Karina(mm[Hg]) HR(bpm) RR(rpm) Temp WT HT HC BMI BSA BMI Percentile O2 Sat(%) 10/06/2016 4:10:00 PM 124 mmHg 74 mmHg [...] Reviewed 08/21/2011 12:00 AM Depo-Medrol 40 mg [facility]#[id number] Reviewed 03/02/2016 12:00 AM IMMUNOTHERAPY INJECTIONS Reviewed [...] Reviewed 11/27/2011 12:00 AM Depo-Medrol 40 mg [facility]#[id number] Reviewed 12/01/2011 12:00 AM IMMUNOTHERAPY INJECTIONS Reviewed [...] 02/13/2013 12:00 AM Decadron, Per 1 Mg [facility]# [id number] Reviewed 02/13/2013 12:00 AM Depo-Medrol, Per 80 Mg [facility]#[id number] Reviewed 06/05/2013 12:00 AM MAMMOGRAM SCREENING Reviewed [...] Reviewed Results Summary Date and Description Results 11/07/2009 2:59 PM Colonoscopy-Women [...] 0.23 #BASO 0.07 MANUAL DIFF NOT IND 06/14/2016 11:05 AM WBC 6.7 RBC 4.61 HGB 14.40 g/dLHCT 42.40 %MCV 92.0 fLMCH 31.20 pgMCHC 34.0 g/dLRDW SD 42 RDW CV 12.30 %MPV 10.40 fLPLT 252 NRBC# 0.00 NRBC% 0.0 GLUCOSE 100.0 mg/dLSODIUM 142.0 mmol/LPOTASSIUM 4.0 mmol/LCHLORIDE 106.0 mmol/LCO2 24.0 mmol/LBUN 11.0 mg/dLCREATININE 0.80 mg/dLCALCIUM 9.20 mg/ dLAGE 57 GFR NonAA 74 GFR AA 90 eGFR >60 mL/min/1.73meGFR AA* >60 07/06/2016 10:25 AM TSH 0.160 uIU/mL History Of Immunizations Name Date Admin Mfg Name Mfg Code Trade Name Lot# Route Inj Vis Given Vis Pub CVX Influenza 06/02/2010 sanofi pasteur PMC Fluzone [id number] Intramuscular Left Deltoid 06/02/2010 02/25/2010 999 Influenza 05/09/2015 sanofi pasteur PMC Fluzone [id number] Intramuscular Left Deltoid 05/09/2015 02/22/2015 141 Pneumococcal 06/29/2016 Yoko WAL Prevnar 13 [id number] Intramuscular Right Deltoid 06/29/2016 09/14/2012 133 Zostavax 10/16/2014 [employer]ck [employer] MSD ZOSTAVAX Not Entered Not Entered 07/19/2016 07/19/2016 121 History of Past Illness Name Date [...] 3:46PM Allergic rhinitis due to other allergen b 2015 3:46PM Allergic rhinitis; due to other [...] to other allergen Dec 02 2016 4:11PM Payers Insurance Name Company Name Plan Name Plan Number Policy Number Policy Group Number Start Date [facility] [id number] June [facility] Self [facility] Fund *INVALID State Self Insurance [id number] N/A Comp [place] [employer] [place] [id number] Wednesday, 2015 History of Encounters Visit Date Visit Type Provider 12/02/2016 Nurse visit Yvonne Cassidy MD 11/16/2016 Nurse visit Yvonne Cassidy MD 11/10/2016 Nurse visit Yvonne Cassidy MD 11/02/2016 Nurse visit Donte Hastings APRN 10/28/2016 Nurse visit Yvonne Cassidy MD 10/06/2016 [...] Cassidy MD 07/14/2016 Nurse visit Donte Hastings DIRECTOR OF MATERIALS 07/06/2016 Nurse visit Yvonne Cassidy MD 06/29/2016 Nurse visit Yvonne Cassidy MD 06/24/2016 Nurse visit Yvonne Cassidy MD 06/16/2016 Office visit Yvonne Cassidy MD 06/14/2016 [facility] Alexander Park MD 06/09/2016 Nurse visit Yvonne Cassidy MD 06/02/2016 Office visit 06/02/2016 Office visit Karolyn Millan DIRECTOR OF MATERIALS 06/01/2016 Nurse visit Yvonne Cassidy MD 05/27/2016 Nurse visit Yvonne Cassidy MD 05/11/2016 Nurse visit Yvonne Cassidy MD 05/05/2016 Nurse visit Yvonne Cassidy MD 04/29/2016 Nurse visit Yvonne Cassidy MD 04/23/2016 Office visit Jessie Mock DIRECTOR OF MATERIALS 04/13/2016 Nurse visit Yvonne Cassidy MD 04/07/2016 Nurse visit Yvonne Cassidy MD 04/01/2016 Office visit Jessie Mock DIRECTOR OF MATERIALS 03/26/2016 Nurse visit Yvonne Cassidy MD 03/17/2016 Nurse visit Yvonne Cassidy MD 03/11/2016 Nurse visit Yvonne Cassidy MD 03/04/2016 Office visit Jessie Mock DIRECTOR OF MATERIALS 03/02/2016 Nurse visit Yvonne Cassidy MD 02/19/2016 Nurse visit Yvonne Cassidy MD 02/12/2016 Office visit Jessie Mock DIRECTOR OF MATERIALS 02/03/2016 Nurse visit Yvonne Cassidy MD 01/27/2016 Nurse visit Yvonne Cassidy MD 01/15/2016 Nurse visit Yvonne Cassidy MD 01/08/2016 Office visit Jessie Mock DIRECTOR OF MATERIALS 12/25/2015 Nurse visit Yvonne Cassidy MD 12/09/2015 Nurse visit Yvonne Cassidy MD 12/02/2015 Nurse visit Yvonne Cassidy MD 11/29/2015 Nurse visit Donte Hastings DIRECTOR OF MATERIALS 11/28/2015 Nurse visit Jessie Mock DIRECTOR OF MATERIALS 11/27/2015 Office visit Jessie Mock DIRECTOR OF MATERIALS 11/25/2015 Office visit Donte Hastings DIRECTOR OF MATERIALS 11/18/2015 Nurse visit Donte Hastings DIRECTOR OF MATERIALS 11/11/2015 Nurse visit Jessie Mock DIRECTOR OF MATERIALS 11/04/2015 Nurse visit Donte Hastings DIRECTOR OF MATERIALS 10/29/2015 Office visit Jessie Mock DIRECTOR OF MATERIALS 10/28/2015 Nurse visit Jessie Mock DIRECTOR OF MATERIALS 10/21/2015 Nurse visit Glenn Tejeda MD 10/15/2015 Nurse visit Francisco J Jesus DO 10/09/2015 Nurse visit Glenn Tejeda MD 10/02/2015 Office visit April Atkinson DIRECTOR OF MATERIALS 10/01/2015 Nurse visit Jessie Nish DIRECTOR OF MATERIALS 09/11/2015 Nurse visit Yvonne Cassidy MD 09/05/2015 [...] Office visit 05/29/2015 Office visit Karolyn Millan DIRECTOR OF MATERIALS 05/29/2015 Nurse visit Yvonne Cassidy MD 05/14/2015 Nurse visit Francisco J Jesus DO 05/09/2015 Nurse visit Yvonne Cassidy MD 04/30/2015 Nurse visit Yvonne Cassidy MD 04/23/2015 Nurse visit Yvonne Cassidy MD 04/18/2015 Nurse visit Nidia Darby DIRECTOR OF MATERIALS 04/09/2015 Nurse visit Yvonne Cassidy MD 04/01/2015 Nurse visit Yvonne Cassidy MD 03/27/[address] Cody Horvath MD 03/25/2015 [facility] Alexander Park MD 03/19/2015 Nurse visit Yvonne Cassidy MD 03/19/2015 Office visit Nidia Darby DIRECTOR OF MATERIALS 03/04/2015 Nurse visit Yvonne Cassidy MD 02/25/2015 [...] Office visit 12/31/2014 Office visit Karolyn Millan DIRECTOR OF MATERIALS 12/24/2014 Nurse visit Yvonne Cassidy MD 12/17/2014 Nurse visit Yvonne Cassidy MD 12/13/2014 Nurse visit Yvonne Cassidy MD 11/28/2014 Nurse visit Yvonne Cassidy MD 11/19/2014 Nurse visit Yvonne Cassidy MD 11/12/2014 Nurse visit Yvonne Cassidy MD 11/05/2014 Nurse visit Yvonne Cassidy MD 11/05/2014 [facility] Darin Park MD 10/29/2014 Nurse visit Yvonne Cassidy MD 10/24/2014 Nurse visit Yovnne Cassidy MD 10/15/2014 Nurse visit Yvonne Cassidy MD 10/11/2014 Office visit Karolyn Millan DIRECTOR OF MATERIALS 10/09/2014 Nurse visit Yvonne Cassidy MD 10/04/2014 Nurse visit Yvonne Cassidy MD 09/19/2014 Surgery Karolyn Millan DIRECTOR OF MATERIALS 09/13/2014 Office visit Yvonne Cassidy MD 09/06/2014 Nurse visit Yvonne Cassidy MD 08/28/2014 [facility] Chauncey Hogan MD 08/28/2014 [facility] Joe Thomas MD 08/23/2014 Nurse visit Yvonne Cassidy MD 08/22/2014 Surgery Joe Thomas MD 08/16/2014 Nurse visit Yvonne Cassidy MD 08/07/2014 Nurse visit Yvonne Cassidy MD 08/01/2014 Nurse visit Jessie Mock DIRECTOR OF MATERIALS 07/25/2014 Nurse visit Nidia Darby DIRECTOR OF MATERIALS 07/16/2014 Nurse visit Yvonne Cassidy MD 07/09/2014 [...] Cassidy MD 03/20/2014 Nurse visit Jessie Mock DIRECTOR OF MATERIALS 03/13/2014 Nurse visit Donte Hastings DIRECTOR OF MATERIALS 03/07/2014 Nurse visit Yvonne Cassidy MD 02/27/2014 Nurse visit Jessie Mock DIRECTOR OF MATERIALS 02/20/2014 Nurse visit Donte Hastings DIRECTOR OF MATERIALS 02/13/2014 Nurse visit Donte Hastings DIRECTOR OF MATERIALS 02/13/2014 Procedures Joe Thomas MD 02/07/2014 Office visit Joe Thomas MD 02/06/2014 Nurse visit Yvonne Cassidy MD 01/17/2014 Nurse visit Nidia Darby DIRECTOR OF MATERIALS 01/10/2014 Nurse visit Yvonne Cassidy MD 01/02/2014 Nurse visit Yvonne Cassidy MD 12/26/2013 Nurse visit Yvonne Cassidy MD 12/18/2013 Nurse visit Yvonne Cassidy MD 12/12/2013 Nurse visit Yvonne Cassidy MD 12/05/2013 Nurse visit Yvonne Cassidy MD 11/28/2013 Nurse visit Yvonne Cassidy MD 11/21/2013 Nurse visit Yvonne Cassidy MD 11/14/2013 Nurse visit Yvonne Cassidy MD 11/07/2013 Nurse visit Nidia Darby DIRECTOR OF MATERIALS 10/31/2013 Nurse visit Nidia Darby DIRECTOR OF MATERIALS 10/25/2013 Nurse visit Nidia Darby DIRECTOR OF MATERIALS 10/18/2013 Voided Nidia Darby DIRECTOR OF MATERIALS 10/10/2013 Voided Yvonne Cassidy MD 10/03/2013 Nurse [...] Mart MD 04/18/2013 Nurse visit Nidia Darby DIRECTOR OF MATERIALS 04/04/2013 Nurse visit Nidia Darby DIRECTOR OF MATERIALS 03/28/2013 Nurse visit Nidia Darby DIRECTOR OF MATERIALS 03/21/2013 Nurse visit Nidia Darby DIRECTOR OF MATERIALS 03/13/2013 Nurse visit Nidia Darby DIRECTOR OF MATERIALS 03/09/2013 Nurse visit Nidia Darby DIRECTOR OF MATERIALS 03/02/2013 Nurse visit Nidia Darby DIRECTOR OF MATERIALS 02/21/2013 Nurse visit Nidia Darby DIRECTOR OF MATERIALS 02/13/2013 Office visit Nidia Darby DIRECTOR OF MATERIALS 02/06/2013 Nurse visit Bria Mart MD 01/31/2013 [...] Mart MD 10/04/2012 Nurse visit Nidia Darby DIRECTOR OF MATERIALS 09/27/2012 Nurse visit Bria Mart MD 09/22/2012 [...] Mart MD 06/07/2012 Nurse visit Nidia Darby DIRECTOR OF MATERIALS 06/07/2012 Voided Francisco J Jesus DO 06/01/2012 [...] Bria Mart MD 12/08/2011 Nurse visit Bria Mrat MD 12/01/2011 Nurse visit Bria Mart MD [...] Mart MD 09/08/2011 Office visit Jessie Mock DIRECTOR OF MATERIALS 09/01/2011 Nurse visit Bria Mart MD 08/21/2011 [...]
--- OUTSIDE RECORDS SUMMARY | 2017-05-06 14:06 | XMS REPORT ---
Author Author Yvonne Cassidy Organization [facility] Address [address] [place], [place] [id number] Care Team Providers Care Ceo Name Role Phone Yvonne Cassidy PCP Allergies and Adverse Reactions Name Reaction Notes Ceftin rash Erythromycin rash PENICILLINS rash Plan of Treatment Planned Activity Comments Planned Date Planned Time Plan/Goal Breast ultrasonography 12/31/2014 12:00 AM COMPUTER DX MAMMOGRAM ADD-ON 12/31/2014 12:00 AM Medications Active Name Start Date Estimated Completion Date SIG Comments bupropion HCl oral tablet extended release 24 hr 300 mg 05/16/20142014 TAKE 1 TABLET BY MOUTH EVERY DAY for 30 days Synthroid Oral tablet 175 mcg 05/16/2014 05/11/2015 TAKE 1 TABLET BY MOUTH ONCE DAILY meloxicam oral tablet 15 mg 08/21/2014 TAKE 1 TABLET BY MOUTH ONCE DAILY atenolol oral tablet 25 mg 09/19/2014 09/14/2015 take 1 tablet (25 mg) by oral route once daily for 90 days triamcinolone acetonide nasal aerosol,spray 55 mcg 11/14/2014 USE 1-2 SPRAYS BY NASAL ROUTE DAILY for 30 days triamcinolone acetonide nasal aerosol,spray 55 mcg 11/14/2014 USE 1-2 SPRAYS BY NASAL ROUTE DAILY for 30 days meloxicam oral tablet 15 mg 01/31/2015 TAKE 1 TABLET BY MOUTH ONCE DAILY Name Start Date Expiration Date SIG Comments hydrochlorothiazide Oral Capsule 12.5 mg 02/09/2011 03/11/2011 TAKE 1 CAPSULE BY MOUTH EVERY DAY Zithromax Z-Jonas Oral Tab 250 MG 07/21/2011 07/26/2011 Take 2 tablets the first day (500 mg) followed by 1 tablet (250 mg) days 2-5. for 5 days Bactrim DS Oral Tablet 800-160 mg 09/08/2011 09/15/2011 take 1 tablet by oral route every 12 hours for 7 days Ocella Oral Tablet 3-0.03 mg 11/12/2011 12/10/2011 TAKE 1 TABLET BY MOUTH EVERY DAY Zithromax Z-Jonas Oral tablet 250 mg 02/13/2013 02/18/2013 take 2 tablets (500 mg ) by oral route once daily for 1 day then 1 tablet (250 mg) by oral route once daily for 4 days Polytrim Ophthalmic Drops 0.1-10,000 %-unit/mL 02/13/2013 02/20/2013 instill 1 drop into affected eye(s) by ophthalmic route every 6 hours for 7 days bupropion HCl Oral tablet extended release 24 hr 300 mg 05/03/20132012 TAKE 1 TABLET BY MOUTH EVERY DAY triamcinolone acetonide Nasal aerosol,spray 55 mcg 06/19/2013 07/19/2013 USE 1- 2 SPRAYS BY NASAL ROUTE DAILY triamcinolone acetonide Nasal aerosol,spray 55 mcg 06/19/2013 07/19/2013 USE 1- 2 SPRAYS BY NASAL ROUTE DAILY triamcinolone acetonide nasal aerosol,spray 55 mcg 04/11/2014 08/09/2014 USE 1 -2 SPRAYS BY NASAL ROUTE DAILY for 30 days triamcinolone acetonide nasal aerosol,spray 55 mcg 04/11/2014 08/09/2014 USE 1 -2 SPRAYS BY NASAL ROUTE DAILY for 30 days hydrochlorothiazide oral capsule 12.5 mg 09/19/2014 01/17/2015 take 1 capsule ( 12.5 mg) by oral route once daily for 30 days Neoprene 1 ankle brace 09/19/2014 10/03/2014 Wearing daily when ambulating Discontinued Name Start Date Discontinued Date SIG Comments promethazine-codeine Oral Syrup 6.25-10 mg/5 mL 07/21/2011 08/21/2011 take 5 milliliters by oral route every 6 hours as needed, not to exceed 30 mL in 24 hours Medrol (Jonas) Oral Tablets, Dose Pack 4 mg 08/06/2011 08/21/2011 take as directed promethazine-codeine Oral Syrup 6.25-10 mg/5 mL 09/08/2011 06/01/2012 take 5 milliliters by oral route every 4-6 hours as needed, not to exceed 30 mL in 24 hours Generess Fe Oral tablet, chewable 0.8mg-25mcg(24) & 75 mg (4) 06/01/2012 chew 1 tablet by oral route once daily lisinopril oral tablet 10 mg 06/14/2013 06/14/2013 TAKE 1 TABLET BY MOUTH EVERY DAY uses mobic daily tramadol oral tablet 50 mg 08/19/2013 09/08/2013 take 1 tablet (50 mg) by oral route every 4-6 hours as needed Exforge HCT oral tablet 5-160-12.5 mg 10/10/2013 02/07/2014 take 1 tablet by oral route once daily for 30 days meloxicam oral tablet 15 mg 01/01/2014 05/09/2014 TAKE 1 TABLET BY MOUTH ONCE DAILY oxybutynin chloride oral tablet extended release 24hr 5 mg 08/22/2014 take 1 tablet (5 mg) by oral route once daily Claritin-D 24 Hour Oral Tablet Extended Release hr 10-240 mg 08/23/20142014 take 1 tablet by oral route once daily amlodipine oral tablet 5 mg 06/19/2014 09/19/2014 take 1 tablet (5 mg) by oral route once daily for 30 days ProAir HFA Inhalation HFA aerosol inhaler 90 mcg/actuation 08/16/20142014 INHALE 1 TO 2 PUFFS BY MOUTH EVERY 4 TO 6 HOURS NEEDED Percocet oral tablet 5-325 mg 08/22/2014 09/13/2014 take 1 tablet by oral route every 4-6 hours as needed Problem List Description Status Onset Asthma Active Hypertension Active hypothyroid Active Vitamin D deficiency Active hypothyroidism Active 05/18/2013 Stress Incontinence, Female Active 05/18/2013 Urge incontinence Active 05/18/2013 Breast Lump, right Active 12/31/2014 Vital Signs Date Time BP-Sys(mm[Hg] BP-Karina(mm[Hg]) HR(bpm) RR(rpm) Temp WT HT HC BMI BSA BMI Percentile O2 Sat(%) 12/31/2014 3:30:00 PM 136 mmHg 68 mmHg [...] of Procedures Date Ordered Description Order Status 03/25/2011 12:00 AM IMMUNOTHERAPY INJECTIONS Reviewed 04/02/2011 12:00 AM IMMUNOTHERAPY INJECTIONS Reviewed 04/08/2011 12:00 AM IMMUNOTHERAPY INJECTIONS Reviewed 04/15/2011 12:00 AM IMMUNOTHERAPY INJECTIONS Reviewed 04/29/2011 12:00 AM IMMUNOTHERAPY INJECTIONS Reviewed 05/06/2011 12:00 [...] 08/21/2011 12:00 AM THER/PROPH/DIAG INJ SC/IM Reviewed 09/08/2011 12:00 AM IMMUNOTHERAPY INJECTIONS Reviewed [...] 11/27/2011 12:00 AM THER/PROPH/DIAG INJ SC/IM Reviewed 12/01/2011 12:00 AM IMMUNOTHERAPY INJECTIONS Reviewed [...] 02/13/2013 12:00 AM THER/PROPH/DIAG INJ SC/IM Reviewed 06/05/2013 12:00 AM MAMMOGRAM SCREENING Returned [...] 06/01/2013 12:00 AM INSERT PESSARY/OTHER DEVICE Reviewed 06/14/2013 12:00 AM METABOLIC PANEL TOTAL [...] 06/03/2010 12:00 AM THER/PROPH/DIAG INJ SC/IM Reviewed 12/26/2013 12:00 AM IMMUNOTHERAPY ONE INJECTION [...] 12/30/2010 12:00 AM THER/PROPH/DIAG INJ SC/IM Reviewed 12/31/2014 12:00 AM MAMMOGRAM BOTH BREASTS Returned 12/31/2014 12:00 AM Breast ultrasound Returned 02/11/2015 12:00 AM IMMUNOTHERAPY INJECTIONS Reviewed 02/11/2015 12:00 AM IMMUNOTHERAPY ONE INJECTION Reviewed Results Summary Data and Description Results [...] BILI 0.50 mg/dLCALCIUM 10.10 mg/dLeGFR >60 mL/min/1.73 [id number] 10.0 secsINR 1.0 PTT 28.20 secs 08/28/2014 7:10 AM TEST UR NEGATIVE 08/29/2014 6:45 AM WBC 9.2 RBC 4.08 HGB 13.20 g/dLHCT 39.30 %MCV 96.0 fLMCH 32.40 pgMCHC 33.60 g/dLRDW CV 13.10 %MPV 10.30 fLPLT 234 GLUCOSE 116.0 mg/ dLSODIUM 140.0 mmol/LPOTASSIUM 3.50 mmol/LCHLORIDE 106.0 mmol/LCO2 23.0 mmol/ LBUN 7.0 mg/dLCREATININE 0.70 mg/dLCALCIUM 8.50 mg/dLeGFR >60 mL/min/1.73 m2 History Of Immunizations Name Date Admin Mfg Name Mfg Code Trade Name Lot# Route Inj Vis Given Vis Pub CVX Influenza 06/02/2010 madie henderson PMC Fluzone [id number] Intramuscular Left Deltoid 06/02/2010 02/25/2010 999 History of Past Illness Name Date of Onset Comments Asthma Hypertension hypothyroid Headache Migraine Kidney Stones Routine gynecological examination Nov 07 2009 3:01PM Hypertension Nov 07 2009 3:01PM Hypothyroidism, Acquired Nov 07 2009 3:01PM Depressive Disorder Nov 07 2009 3:01PM Vaginal Discharge Nov 07 2009 3:01PM Vitamin D deficiency hypothyroidism 05/18/2013 Stress Incontinence, Female 05/18/2013 Urge incontinence 05/18/2013 Essential Hypertension May [...] to other allergen Feb 11 2015 4:09PM Payers Insurance Name Company Name Plan Name Plan Number Policy Number Policy Group Number [id number] [place] *INVALID [place] Self Insurance [id number] N /A History of Encounters Visit Date Visit Type Provider 02/11/2015 Nurse visit Yvonne Cassidy MD 02/04/2015 Nurse visit Yvonne Cassidy MD 01/28/2015 Nurse visit Yvonne Cassidy MD 01/21/2015 Nurse visit Yvonne Cassidy MD 01/15/2015 Nurse visit Yvonne Cassidy MD 01/07/2015 Nurse visit Yvonne Cassidy MD 12/31/2014 Office visit Karolyn Millan ENTRY LEVEL PROGRAMMER 12/31/2014 Nurse visit Yvonne Cassidy MD 12/24/2014 Nurse visit Yvonne Cassidy MD 12/17/2014 Nurse visit Yvonne Cassidy MD 12/13/2014 Nurse visit Yvonne Cassidy MD 11/28/2014 Nurse visit Yvonne Cassidy MD 11/19/2014 Nurse visit Yvonne Cassidy MD 11/12/2014 Nurse visit Yvonne Cassidy MD 11/05/2014 Nurse visit Yvonne Cassidy MD 11/05/2014 [facility] Darin Park MD 10/29/2014 Nurse visit Yvonne Cassidy MD 10/24/2014 Nurse visit Yvonne Cassidy MD 10/15/2014 Nurse visit Yvonne Cassidy MD 10/11/2014 Office visit Karolyn Millan ENTRY LEVEL PROGRAMMER 10/09/2014 Nurse visit Yvonne Cassidy MD 10/04/2014 Nurse visit Yvonne Cassidy MD 09/19/2014 Surgery Karolyn Millan ENTRY LEVEL PROGRAMMER 09/13/2014 Office visit Yvonne Cassidy MD 09/06/2014 Nurse visit Yvonne Cassidy MD 08/28/2014 Hospital Joe Thomas MD 08/28/2014 Hospital Chauncey Hogan MD 08/23/2014 Nurse visit Yvonne Cassidy MD 08/22/2014 Surgery Joe Thomas MD 08/16/2014 Nurse visit Yvonne Cassidy MD 08/07/2014 Nurse visit Yvonne Cassidy MD 08/01/2014 Nurse visit Jessie Mock ENTRY LEVEL PROGRAMMER 07/25/2014 Nurse visit Nidia Darby ENTRY LEVEL PROGRAMMER 07/16/2014 Nurse visit Yvonne Cassidy MD 07/09/2014 [...] Cassidy MD 03/20/2014 Nurse visit Jessie Mock ENTRY LEVEL PROGRAMMER 03/13/2014 Nurse visit Donte Hastings ENTRY LEVEL PROGRAMMER 03/07/2014 Nurse visit Yvonne Cassidy MD 02/27/2014 Nurse visit Jessie Mock ENTRY LEVEL PROGRAMMER 02/20/2014 Nurse visit Donte Hastings ENTRY LEVEL PROGRAMMER 02/13/2014 Procedures Joe Thomas MD 02/13/2014 Nurse visit Donte Hastings ENTRY LEVEL PROGRAMMER 02/07/2014 Office visit Joe Thomas MD 02/06/2014 Nurse visit Yvonne Cassidy MD 01/17/2014 Nurse visit Nidia Darby ENTRY LEVEL PROGRAMMER 01/10/2014 Nurse visit Yvonne Cassidy MD 01/02/2014 Nurse visit Yvonne Cassidy MD 12/26/2013 Nurse visit Yvonne Cassidy MD 12/18/2013 Nurse visit Yvonne Cassidy MD 12/12/2013 Nurse visit Yvonne Cassidy MD 12/05/2013 Nurse visit Yvonne Cassidy MD 11/28/2013 Nurse visit Yvonne Cassidy MD 11/21/2013 Nurse visit Yvonne Cassidy MD 11/14/2013 Nurse visit Yvonne Cassidy MD 11/07/2013 Nurse visit Nidia Darby ENTRY LEVEL PROGRAMMER 10/31/2013 Nurse visit Nidia Darby ENTRY LEVEL PROGRAMMER 10/25/2013 Nurse visit Nidia Darby ENTRY LEVEL PROGRAMMER 10/18/2013 Voided Nidia Darby ENTRY LEVEL PROGRAMMER 10/10/2013 Voided Yvonne Cassidy MD 10/03/2013 Nurse [...] 06/14/2013 Office visit Yvonne Cassidy MD 06/07/2013 Nurse visit Bria Mart MD 06/07/2013 Office visit Joe Thomas MD 06/02/2013 Office visit Joe Thomas MD 06/01/2013 Office visit Joe Thomas MD 05/30/2013 Nurse visit Bria Mart MD 05/23/2013 Nurse visit Bria Mart MD 05/18/2013 Office visit Joe Thomas MD 05/15/2013 Nurse visit Bria Mart MD 05/09/2013 Nurse visit Bria Mart MD 05/01/2013 Nurse visit Bria Mart MD 04/18/2013 Nurse visit Nidia Darby ENTRY LEVEL PROGRAMMER 04/04/2013 Nurse visit Nidia Darby ENTRY LEVEL PROGRAMMER 03/28/2013 Nurse visit Nidia Darby ENTRY LEVEL PROGRAMMER 03/21/2013 Nurse visit Nidia Darby ENTRY LEVEL PROGRAMMER 03/13/2013 Nurse visit Nidia Darby ENTRY LEVEL PROGRAMMER 03/09/2013 Nurse visit Nidia Darby ENTRY LEVEL PROGRAMMER 03/02/2013 Nurse visit Nidia Darby ENTRY LEVEL PROGRAMMER 02/21/2013 Nurse visit Nidia Darby ENTRY LEVEL PROGRAMMER 02/13/2013 Office visit Nidia Darby ENTRY LEVEL PROGRAMMER 02/06/2013 Nurse visit Bria Mart MD 01/31/2013 [...] Bria Mart MD 10/04/2012 Nurse visit Nidia NZafar Darby ENTRY LEVEL PROGRAMMER 09/27/2012 Nurse visit Bria Mart MD 09/22/2012 [...] 06/14/2012 Nurse visit Bria Mart MD 06/07/2012 Voided Francisco J Jesus DO 06/07/2012 Nurse visit Nidia Darby APRN 06/01/2012 Office visit Bria Mart MD 05/24/2012 [...] 09/17/2011 Nurse visit Bria Mart MD 09/08/2011 Office visit Jessie Mock ENTRY LEVEL PROGRAMMER 09/08/2011 Nurse visit Bria Mart MD 09/01/2011 Nurse visit Bria Mart MD 08/21/2011 [...]
--- OUTSIDE RECORDS SUMMARY | 2017-05-06 14:09 | XMS REPORT ---
Author Author Yvonne Cassidy Organization [facility] Address [address] [place], [place] [id number] Care Team Providers Care Retail Service Representative Name Role Phone Yvonne Cassidy PCP Yvonne [...] thigh, or upper arm for 30 days Synthroid 175 mcg oral tablet 06/22/2016 TAKE 1 TABLET BY MOUTH ONCE DAILY ProAir HFA 90 mcg/actuation inhalation HFA aerosol inhaler 06/26/2016 INHALE 1-2 PUFFS BY MOUTH EVERY 4 TO 6 HOURS NEEDED Synthroid 137 mcg oral tablet 07/09/2016 09/07/2016 [...] 5 days Pen Needle 32 gauge x " miscellaneous needle 06/26/2016 07/26/2016 use as directed Discontinued Name Start Date Discontinued Date SIG [...] HC BMI BSA BMI Percentile O2 Sat(%) 06/16/2016 9:14:00 AM 138 mmHg 80 mmHg 72 bpm 16 rpm 98.2 F 204.125 lbs 66.5 in 32.45 kg/m2 2.08 m2 96 % 06/02/2016 3:29:00 PM 135 mmHg 67 mmHg 62 bpm 99.2 F 205 lbs 66.5 in 32.5918 kg/m 2.0888 m 04/23/2016 2:16:00 PM 128 mmHg 76 mmHg [...] AM Depo-Medrol 40 mg [facility]#[id number] Reviewed 03/02/2016 12:00 AM IMMUNOTHERAPY INJECTIONS Reviewed [...] Reviewed 06/02/2016 12:00 AM Screening mammography, bilateral Returned 10/01/2011 12:00 AM IMMUNOTHERAPY INJECTIONS Reviewed 05/11/2016 12:00 AM IMMUNOTHERAPY INJECTIONS Reviewed 10/06/2011 12:00 AM IMMUNOTHERAPY INJECTIONS Reviewed 10/13/2011 12:00 AM IMMUNOTHERAPY INJECTIONS Reviewed 04/23/2016 12:00 AM IMMUNOTHERAPY INJECTIONS Reviewed 05/27/2016 12:00 AM IMMUNOTHERAPY INJECTIONS Reviewed 06/01/2016 12:00 AM IMMUNOTHERAPY INJECTIONS Reviewed 06/02/2016 12:00 AM CYTOPATH C/V THIN LAYER Returned 06/02/2016 12:00 AM MAMMOGRAM BOTH BREASTS Reviewed [...] AM Depo-Medrol 40 mg [facility]#[id number] Reviewed 12/01/2011 12:00 AM IMMUNOTHERAPY INJECTIONS Reviewed [...] Decadron, Per 1 Mg [facility]# [id number] Reviewed 02/13/2013 12:00 AM Depo-Medrol, Per 80 Mg [facility]#[id number] Reviewed 06/05/2013 12:00 AM MAMMOGRAM SCREENING Reviewed [...] Reviewed 07/25/2014 12:00 AM IMMUNOTHERAPY INJECTIONS Reviewed 08/07/2014 12:00 [...] CVX Influenza 06/02/2010 sanofi pasteur PMC Fluzone [id number] Intramuscular Left Deltoid 06/02/2010 02/25/2010 999 Influenza 05/09/2015 sanofi pasteur PMC Fluzone [id number] Intramuscular Left Deltoid 05/09/2015 02/22/2015 141 Pneumococcal 06/29/2016 Dmjom-Bajhkm-Vxilvcv-Pratyesha WAL Prevnar 13 [id number] Intramuscular Right Deltoid 06/29/2016 09/14/2012 133 History of Past Illness Name Date of [...] to other allergen Aug 19 2016 3:46PM Payers Insurance Name Company Name Plan Name Plan Number Policy Number Policy Group Number Start Date [facility] [id number] [facility] Self Insurance Fund *INVALID State Self Insurance [id number] N/A [place] [id number] Wednesday, 2015 History of Encounters Visit Date Visit Type Provider 08/19/2016 Nurse visit Yvonne Cassidy MD 08/13/2016 Nurse visit Yvonne Cassidy MD 08/04/2016 Nurse visit Yvonne Cassidy MD 07/29/2016 Nurse visit Yvonne Cassidy MD 07/14/2016 Nurse visit Donte Hastings TOOL TENDER 07/06/2016 Nurse visit Yvonne Cassidy MD 06/29/2016 Nurse visit Yvonne Cassidy MD 06/24/2016 Nurse visit Yvonne Cassidy MD 06/16/2016 Office visit Yvonne Cassidy MD 06/14/2016 [facility] Alexander Park MD 06/09/2016 Nurse visit Yvonne Cassidy MD 06/02/2016 Office visit 06/02/2016 Office visit Karolyn Millan TOOL TENDER 06/01/2016 Nurse visit Yvonne Cassidy MD 05/27/2016 Nurse visit Yvonne Cassidy MD 05/11/2016 Nurse visit Yvonne Cassidy MD 05/05/2016 Nurse visit Yvonne Cassidy MD 04/29/2016 Nurse visit Yvonne Cassidy MD 04/23/2016 Office visit Jessie Mock TOOL TENDER 04/13/2016 Nurse visit Yvonne Cassidy MD 04/07/2016 Nurse visit Yvonne Cassidy MD 04/01/2016 Office visit Jessie Mock TOOL TENDER 03/26/2016 Nurse visit Yvonne Cassidy MD 03/17/2016 Nurse visit Yvonne Cassidy MD 03/11/2016 Nurse visit Yvonne Cassidy MD 03/04/2016 Office visit Jessie Mock TOOL TENDER 03/02/2016 Nurse visit Yvonne Cassidy MD 02/19/2016 Nurse visit Yvonne Cassidy MD 02/12/2016 Office visit Jessie Mock TOOL TENDER 02/03/2016 Nurse visit Yvonne Cassidy MD 01/27/2016 Nurse visit Yvonne Cassidy MD 01/15/2016 Nurse visit Yvonne Cassidy MD 01/08/2016 Office visit Jessie Mock TOOL TENDER 12/25/2015 Nurse visit Yvonne Cassidy MD 12/09/2015 Nurse visit Yvonne Cassidy MD 12/02/2015 Nurse visit Yvonne Cassidy MD 11/29/2015 Nurse visit Donte Hastings TOOL TENDER 11/28/2015 Nurse visit Jessie Mock TOOL TENDER 11/27/2015 Office visit Jessie Mock TOOL TENDER 11/25/2015 Office visit Donte Hastings TOOL TENDER 11/18/2015 Nurse visit Donte Hastings TOOL TENDER 11/11/2015 Nurse visit Jessie Mock TOOL TENDER 11/04/2015 Nurse visit Donte Hastings TOOL TENDER 10/29/2015 Office visit Jessie Mock TOOL TENDER 10/28/2015 Nurse visit Jessie Mock TOOL TENDER 10/21/2015 Nurse visit Glenn Tejeda MD 10/15/2015 Nurse visit Francisco J Jesus DO 10/09/2015 Nurse visit Glenn Tejeda MD 10/02/2015 Office visit Apriljoana Atkinson TOOL TENDER 10/01/2015 Nurse visit Jessie Mock TOOL TENDER 09/11/2015 Nurse visit Yvonne Cassidy MD 09/05/2015 [...] Office visit 05/29/2015 Office visit Karolyn Millan TOOL TENDER 05/29/2015 Nurse visit Yvonne Cassidy MD 05/14/2015 Nurse visit Francisco J Jesus DO 05/09/2015 Nurse visit Yvonne Cassidy MD 04/30/2015 Nurse visit Yvonne Cassidy MD 04/23/2015 Nurse visit Yvonne Cassidy MD 04/18/2015 Nurse visit Nidia Darby TOOL TENDER 04/09/2015 Nurse visit Yvonne Cassidy MD 04/01/2015 Nurse visit Yvonne Cassidy MD 03/27/[address] Cody Horvath MD 03/25/2015 [facility] Alexander Park MD 03/19/2015 Nurse visit Yvonne Cassidy MD 03/19/2015 Office visit Nidia Darby TOOL TENDER 03/04/2015 Nurse visit Yvonne Cassidy MD 02/25/2015 [...] Office visit 12/31/2014 Office visit Karolyn Millan TOOL TENDER 12/24/2014 Nurse visit Yvonne Cassidy MD 12/17/2014 Nurse visit Yvonne Cassidy MD 12/13/2014 Nurse visit Yvonne Cassidy MD 11/28/2014 Nurse visit Yvonne Cassidy MD 11/19/2014 Nurse visit Yvonne Cassidy MD 11/12/2014 Nurse visit Yvonne Cassidy MD 11/05/2014 Nurse visit Yvonne Cassidy MD 11/05/2014 [facility] Alexander Park MD 10/29/2014 Nurse visit Yvonne Cassidy MD 10/24/2014 Nurse visit Yvonne Cassidy MD 10/15/2014 Nurse visit Yvonne Cassidy MD 10/11/2014 Office visit Karolyn Millan TOOL TENDER 10/09/2014 Nurse visit Yvonne Cassidy MD 10/04/2014 Nurse visit Yvonne Cassidy MD 09/19/2014 Surgery Karolyn Millan TOOL TENDER 09/13/2014 Office visit Yvonne Cassidy MD 09/06/2014 Nurse visit Yvonne Cassidy MD 08/28/2014 [facility] Chauncey Hogan MD 08/28/2014 [facility] Joe Thomas MD 08/23/2014 Nurse visit Yvonne Cassidy MD 08/22/2014 Surgery Joe Thomas MD 08/16/2014 Nurse visit Yvonne Cassidy MD 08/07/2014 Nurse visit Yvonne Cassidy MD 08/01/2014 Nurse visit Jessie Mock TOOL TENDER 07/25/2014 Nurse visit Nidia Darby TOOL TENDER 07/16/2014 Nurse visit Yvonne Cassidy MD 07/09/2014 [...] Cassidy MD 03/20/2014 Nurse visit Jessie Mock TOOL TENDER 03/13/2014 Nurse visit Donte Hastings TOOL TENDER 03/07/2014 Nurse visit Yvonne Cassidy MD 02/27/2014 Nurse visit Jessie Mock TOOL TENDER 02/20/2014 Nurse visit Donte Hastings TOOL TENDER 02/13/2014 Nurse visit Donte Hastings TOOL TENDER 02/13/2014 Procedures Joe Thomas MD 02/07/2014 Office visit Joe Thomas MD 02/06/2014 Nurse visit Yvonne Cassidy MD 01/17/2014 Nurse visit Nidia Darby TOOL TENDER 01/10/2014 Nurse visit Yvonne Cassidy MD 01/02/2014 Nurse visit Yvonne Cassidy MD 12/26/2013 Nurse visit Yvonne Cassidy MD 12/18/2013 Nurse visit Yvonne Cassidy MD 12/12/2013 Nurse visit Yvonne Cassidy MD 12/05/2013 Nurse visit Yvonne Cassidy MD 11/28/2013 Nurse visit Yvonne Cassidy MD 11/21/2013 Nurse visit Yvonne Cassidy MD 11/14/2013 Nurse visit Yvonne Cassidy MD 11/07/2013 Nurse visit Nidia Darby TOOL TENDER 10/31/2013 Nurse visit Nidia Darby TOOL TENDER 10/25/2013 Nurse visit Nidia Darby TOOL TENDER 10/18/2013 Voided Nidia Darby TOOL TENDER 10/10/2013 Voided Yvonne Cassidy MD 10/03/2013 Nurse [...] Mart MD 04/18/2013 Nurse visit Nidia Darby TOOL TENDER 04/04/2013 Nurse visit Nidia Darby TOOL TENDER 03/28/2013 Nurse visit Nidia Darby TOOL TENDER 03/21/2013 Nurse visit Nidia Darby TOOL TENDER 03/13/2013 Nurse visit Nidia Darby TOOL TENDER 03/09/2013 Nurse visit Nidia Darby TOOL TENDER 03/02/2013 Nurse visit Nidia Darby TOOL TENDER 02/21/2013 Nurse visit Nidia Darby TOOL TENDER 02/13/2013 Office visit Nidia Darby TOOL TENDER 02/06/2013 Nurse visit Bria Mart MD 01/31/2013 [...] Mart MD 10/04/2012 Nurse visit Nidia Darby TOOL TENDER 09/27/2012 Nurse visit Bria Mart MD 09/22/2012 [...] Mart MD 06/07/2012 Nurse visit Nidia Darby TOOL TENDER 06/07/2012 Voided Francisco J Jesus DO 06/01/2012 [...] Mart MD 09/08/2011 Office visit Jessie Mock TOOL TENDER 09/01/2011 Nurse visit Bria Mart MD 08/21/2011 [...]
--- OUTSIDE RECORDS SUMMARY | 2017-05-06 14:13 | XMS REPORT ---
Author Author Yvonne Cassidy Organization [facility] Address [address] [place], [place] [id number] Care Team Providers Care Optical Instruments Supervisor Name Role Phone Yvonne Cassidy PCP Yvonne [...] Reviewed 08/21/2011 12:00 AM Depo-Medrol 40 mg [facility]#[id number] Reviewed 03/02/2016 12:00 AM IMMUNOTHERAPY INJECTIONS Reviewed [...] Reviewed 11/27/2011 12:00 AM Depo-Medrol 40 mg [facility]#[id number] Reviewed 12/01/2011 12:00 AM IMMUNOTHERAPY INJECTIONS Reviewed [...] 02/13/2013 12:00 AM Decadron, Per 1 Mg [facility]# [address]-86 Reviewed 02/13/2013 12:00 AM Depo-Medrol, Per 80 Mg [facility]#[id number] Reviewed 06/05/2013 12:00 AM MAMMOGRAM SCREENING Reviewed [...] CVX Influenza 06/02/2010 sanofi pasteur PMC Fluzone [id number] Intramuscular Left Deltoid 06/02/2010 02/25/2010 999 Influenza 05/09/2015 sanofi pasteur PMC Fluzone [id number] Intramuscular Left Deltoid 05/09/2015 02/22/2015 141 Pneumococcal 06/29/2016 Dmdwh-Hpfvxi-Hjcvtpj-Pratyesha WAL Prevnar 13 [id number] Intramuscular Right Deltoid 06/29/2016 09/14/2012 133 Zostavax [...] rhinitis; due to other allergen 2017 3:48PM Payers Insurance Name Company Name Plan Name Plan Number Policy Number Policy Group Number [id number] June [facility] Self [facility] Fund *INVALID State Self Insurance [id number] N/A Comp [place] [id number] Wednesday, 2015 History of Encounters Visit Date Visit Type Provider 2017 Nurse visit Yvonne Cassidy MD 04/05/2017 Office visit Jessie Mock CARPET WINDER 03/30/2017 Nurse visit Yvonne Cassidy MD 03/24/2017 [...] Cassidy MD 12/08/2016 Nurse visit Donte Hastings CARPET WINDER 12/02/2016 Nurse visit Yvonne Cassidy MD 11/16/2016 Nurse visit Yvonne Cassidy MD 11/10/2016 Nurse visit Yvonne Cassidy MD 11/02/2016 Nurse visit Donte Hastings CARPET WINDER 10/28/2016 Nurse visit Yvonne Cassidy MD 10/06/2016 Office visit MAGI JASON DO 09/15/2016 Nurse visit Francisco J Jesus DO 09/08/2016 Nurse visit Francisco J Jesus DO 09/02/2016 Nurse visit Yvonne Cassidy MD 08/25/2016 Nurse visit Yvonne Csasidy MD 08/19/2016 Nurse visit Yvonne Cassidy MD 08/13/2016 Nurse visit Yvonne Cassidy MD 08/04/2016 Nurse visit Yvonne Cassidy MD 07/29/2016 Nurse visit Yvonne Cassidy MD 07/14/2016 Nurse visit Donte Hastings CARPET WINDER 07/06/2016 Nurse visit Yvonne Cassidy MD 06/29/2016 Nurse visit Yvonne Cassidy MD 06/24/2016 Nurse visit Yvonne Cassidy MD 06/16/2016 Office visit Yvonne Cassidy MD 06/14/2016 [facility] [place] MD 06/09/2016 Nurse visit Yvonne Cassidy MD 06/02/2016 Office visit 06/02/2016 Office visit Karolyn Millan CARPET WINDER 06/01/2016 Nurse visit Yvonne Cassidy MD 05/27/2016 Nurse visit Yvonne Cassidy MD 05/11/2016 Nurse visit Yvonne Cassidy MD 05/05/2016 Nurse visit Yvonne Cassidy MD 04/29/2016 Nurse visit Yvonne Cassidy MD 04/23/2016 Office visit Jessie Mock CARPET WINDER 04/13/2016 Nurse visit Yvonne Cassidy MD 04/07/2016 Nurse visit Yvonne Cassidy MD 04/01/2016 Office visit Jessie Mock CARPET WINDER 03/26/2016 Nurse visit Yvonne Casisdy MD 03/17/2016 Nurse visit Yvonne Cassidy MD 03/11/2016 Nurse visit Yvonne Cassidy MD 03/04/2016 Office visit Jessie Mock CARPET WINDER 03/02/2016 Nurse visit Yvonne Cassidy MD 02/19/2016 Nurse visit Yvonne Cassidy MD 02/12/2016 Office visit Jessie Mock CARPET WINDER 02/03/2016 Nurse visit Yvonne Cassidy MD 01/27/2016 Nurse visit Yvonne Cassidy MD 01/15/2016 Nurse visit Yvonne Cassidy MD 01/08/2016 Office visit Jessie Mock CARPET WINDER 12/25/2015 Nurse visit Yvonne Cassidy MD 12/09/2015 Nurse visit Yvonne Cassidy MD 12/02/2015 Nurse visit Yvonne Cassidy MD 11/29/2015 Nurse visit Donte Hastings CARPET WINDER 11/28/2015 Nurse visit Jessie Mock CARPET WINDER 11/27/2015 Office visit Jessie Nish CARPET WINDER 11/25/2015 Office visit Donte Hastings CARPET WINDER 11/18/2015 Nurse visit Donte Hastings CARPET WINDER 11/11/2015 Nurse visit Jessie Mock CARPET WINDER 11/04/2015 Nurse visit Donte Hastings CARPET WINDER 10/29/2015 Office visit Jessie Mock CARPET WINDER 10/28/2015 Nurse visit Jessie Mock CARPET WINDER 10/21/2015 Nurse visit Glenn Tejeda MD 10/15/2015 Nurse visit Francisco J Jesus DO 10/09/2015 Nurse visit Glenn Tejeda MD 10/02/2015 Office visit April Atkinson CARPET WINDER 10/01/2015 Nurse visit Jessie Mock CARPET WINDER 09/11/2015 Nurse visit Yvonne Cassidy MD 09/05/2015 [...] Office visit 05/29/2015 Office visit Karolyn Millan CARPET WINDER 05/29/2015 Nurse visit Yvonne Cassidy MD 05/14/2015 Nurse visit Francisco J Jesus DO 05/09/2015 Nurse visit Yvonne Cassidy MD 04/30/2015 Nurse visit Yvonne Cassidy MD 04/23/2015 Nurse visit Yvonne Cassidy MD 04/18/2015 Nurse visit Nidia Darby CARPET WINDER 04/09/2015 Nurse visit Yvonne Cassidy MD 04/01/2015 Nurse visit Yvonne Cassidy MD 03/27/[address] Cody Horvath MD 03/25/2015 [facility] [place] MD 03/19/2015 Nurse visit Yvonne Cassidy MD 03/19/2015 Office visit Nidia Darby CARPET WINDER 03/04/2015 Nurse visit Yvonne Cassidy MD 02/25/2015 [...] Office visit 12/31/2014 Office visit Karolyn Millan CARPET WINDER 12/24/2014 Nurse visit Yvonne Cassidy MD 12/17/2014 Nurse visit Yvonne Cassidy MD 12/13/2014 Nurse visit Yvonne Cassidy MD 11/28/2014 Nurse visit Yvonne Cassidy MD 11/19/2014 Nurse visit Yvonne Cassidy MD 11/12/2014 Nurse visit Yvonne Cassidy MD 11/05/2014 Nurse visit Yvonne Cassidy MD 11/05/2014 [facility] [place] MD 10/29/2014 Nurse visit Yvonne Cassidy MD 10/24/2014 Nurse visit Yvonne Cassidy MD 10/15/2014 Nurse visit Yvonne Cassidy MD 10/11/2014 Office visit Karolyn Millan CARPET WINDER 10/09/2014 Nurse visit Yvonne Cassidy MD 10/04/2014 Nurse visit Yvonne Cassidy MD 09/19/2014 Surgery Karolyn NiteshZafar Millan CARPET WINDER 09/13/2014 Office visit Yvonne Cassidy MD 09/06/2014 Nurse visit Yvonne Cassidy MD 08/28/2014 [facility] Chauncey Hogan MD 08/28/2014 [facility] Joe Thomas MD 08/23/2014 Nurse visit Yvonne Cassidy MD 08/22/2014 Surgery Joe Thomas MD 08/16/2014 Nurse visit Yvonne Cassidy MD 08/07/2014 Nurse visit vYonne Cassidy MD 08/01/2014 Nurse visit Jessie Mock CARPET WINDER 07/25/2014 Nurse visit Nidia Darby CARPET WINDER 07/16/2014 Nurse visit Yvonne Cassidy MD 07/09/2014 [...] Cassidy MD 03/20/2014 Nurse visit Jessie Mock CARPET WINDER 03/13/2014 Nurse visit Donte Hastings CARPET WINDER 03/07/2014 Nurse visit Yvonne Cassidy MD 02/27/2014 Nurse visit Jessie Mock CARPET WINDER 02/20/2014 Nurse visit Donte Hastings CARPET WINDER 02/13/2014 Nurse visit Donte Hastings CARPET WINDER 02/13/2014 Procedures Joe Thomas MD 02/07/2014 Office visit Joe Thomas MD 02/06/2014 Nurse visit Yvonne Cassidy MD 01/17/2014 Nurse visit Nidia Darby CARPET WINDER 01/10/2014 Nurse visit Yvonne Cassidy MD 01/02/2014 Nurse visit Yvonne Cassidy MD 12/26/2013 Nurse visit Yvonne Cassidy MD 12/18/2013 Nurse visit Yvonne Cassidy MD 12/12/2013 Nurse visit Yvonne Cassidy MD 12/05/2013 Nurse visit Yvonne Cassidy MD 11/28/2013 Nurse visit Yvonne Cassidy MD 11/21/2013 Nurse visit Yvonne Cassidy MD 11/14/2013 Nurse visit Yvonne Cassidy MD 11/07/2013 Nurse visit Nidia Darby CARPET WINDER 10/31/2013 Nurse visit Nidia Darby CARPET WINDER 10/25/2013 Nurse visit Nidia Darby CARPET WINDER 10/18/2013 Voided Nidia Darby CARPET WINDER 10/10/2013 Voided Yvonne Cassidy MD 10/03/2013 Nurse [...] Bria Mart MD 04/18/2013 Nurse visit Nidia Sheridan Darby CARPET WINDER 04/04/2013 Nurse visit Nidia Sheridan Darby CARPET WINDER 03/28/2013 Nurse visit Nidia Sheridan Darby CARPET WINDER 03/21/2013 Nurse visit Nidiafarideh Darby CARPET WINDER 03/13/2013 Nurse visit Nidia Sheridan Darby CARPET WINDER 03/09/2013 Nurse visit Nidia Sheridan Darby CARPET WINDER 03/02/2013 Nurse visit Nidia Sheridan Darby CARPET WINDER 02/21/2013 Nurse visit Nidia Darby CARPET WINDER 02/13/2013 Office visit Nidia Darby CARPET WINDER 02/06/2013 Nurse visit Bria Mart MD 01/31/2013 [...] Mart MD 10/04/2012 Nurse visit Nidia Darby CARPET WINDER 09/27/2012 Nurse visit Bria Mart MD 09/22/2012 [...] Mart MD 06/07/2012 Nurse visit Nidia Darby CARPET WINDER 06/07/2012 Voided Francisco J Edin ISSA 06/01/2012 [...] Mart MD 09/08/2011 Office visit Jessie Mock CARPET WINDER 09/01/2011 Nurse visit Bria Mart MD 08/21/2011 [...]
[2017-05-06] MEDS ORDERED: morphine INJ 10 MG/ML 1ML (SYR OR VIAL) IVP STA (14:14)
[2017-05-06 14:16] LABS: BASOPHILS # (AUTO) 0.1 10^3/uL (0.0-0.1); BASOPHILS % (AUTO) 1 % (0-10); EOSINOPHILS # (AUTO) 0.2 10^3/uL (0.0-0.3); EOSINOPHILS % (AUTO) 3 % (0-10); LYMPHOCYTES # (AUTO) 1.8 X 10^3 (1.0-4.0); LYMPHOCYTES % (AUTO) 21 % (12-44); MEAN CORPUSCULAR HEMOGLOBIN 32 PG (25-34); MEAN CORPUSCULAR HGB CONC 35 G/DL (32-36); MEAN CORPUSCULAR VOLUME 92 FL (80-99); MEAN PLATELET VOLUME 11.1 FL (7.4-10.4); MONOCYTES # (AUTO) 0.8 X 10^3 (0.0-1.0); MONOCYTES % (AUTO) 10 % (0-12); NEUTROPHILS # (AUTO) 5.7 X 10^3 (1.8-7.8); NEUTROPHILS % (AUTO) 66 % (42-75); PLATELET COUNT 253 10^3/uL (130-400); RED BLOOD COUNT 4.93 10^6/uL (4.35-5.85); RED CELL DISTRIBUTION WIDTH 12.7 % (10.0-14.5); WHITE BLOOD COUNT 8.7 10^3/uL (4.3-11.0)
--- OUTSIDE RECORDS SUMMARY | 2017-05-06 14:16 | XMS REPORT ---
Author Author Donte Hastings [facility] Address [address] [place], [place] [id number] Care Team Providers Care Undercover Cop Name Role Phone Donte Hastings PCP Yvonne Cassidy PreferredProvider Allergies and Adverse [...] Reviewed 08/21/2011 12:00 AM Depo-Medrol 40 mg [facility]#[id number] Reviewed 03/02/2016 12:00 AM IMMUNOTHERAPY INJECTIONS Reviewed [...] Reviewed 11/27/2011 12:00 AM Depo-Medrol 40 mg [facility]#[id number] Reviewed 12/01/2011 12:00 AM IMMUNOTHERAPY INJECTIONS Reviewed [...] 02/13/2013 12:00 AM Decadron, Per 1 Mg [facility]# [address]-55 Reviewed 02/13/2013 12:00 AM Depo-Medrol, Per 80 Mg [facility]#9654-8965-99 Reviewed 06/05/2013 12:00 AM MAMMOGRAM SCREENING Reviewed [...] CVX Influenza 06/02/2010 sanofi pasteur PMC Fluzone [id number] Intramuscular Left Deltoid 06/02/2010 02/25/2010 999 Influenza 05/09/2015 sanofi pasteur PMC Fluzone [id number] Intramuscular Left Deltoid 05/09/2015 02/22/2015 141 Pneumococcal 06/29/2016 Ofxyj-Qybycp-PgwnmnwDiana WAL Prevnar 13 [id number] Intramuscular Right Deltoid 06/29/2016 09/14/2012 133 Zostavax [...] to other allergen Dec 08 2016 4:16PM Payers Insurance Name Company Name Plan Name Plan Number Policy Number Policy Group Number [id number] June [facility] Self Insurance Fund *INVALID State Self Insurance [id number] N/A [facility] [id number] Wednesday, 2015 History of Encounters Visit Date Visit Type Provider 12/08/2016 Nurse visit Donte Hastings APRN 12/02/2016 Nurse visit Yvonne Cassidy MD 11/16/2016 [...] MD 07/14/2016 Nurse visit Donte Hastings CARPET MEASURER 07/06/2016 Nurse visit Yvonne Cassidy MD 06/29/2016 Nurse visit Yvonne Cassidy MD 06/24/2016 Nurse visit Yvonne Cassidy MD 06/16/2016 Office visit Yvonne Cassidy MD 06/14/2016 [facility] [place] MD 06/09/2016 Nurse visit Yvonne Cassidy MD 06/02/2016 Office visit 06/02/2016 Office visit Karolyn Millan CARPET MEASURER 06/01/2016 Nurse visit Yvonne Cassidy MD 05/27/2016 Nurse visit Yvonne Cassidy MD 05/11/2016 Nurse visit Yvonne Cassidy MD 05/05/2016 Nurse visit Yvonne Cassidy MD 04/29/2016 Nurse visit Yvonne Cassidy MD 04/23/2016 Office visit Jessie Mock CARPET MEASURER 04/13/2016 Nurse visit Yvonne Cassidy MD 04/07/2016 Nurse visit Yvonne Cassidy MD 04/01/2016 Office visit Jessie Mock CARPET MEASURER 03/26/2016 Nurse visit Yvonne Cassidy MD 03/17/2016 Nurse visit Yvonne Cassidy MD 03/11/2016 Nurse visit Yvonne Cassidy MD 03/04/2016 Office visit Jessie Mock CARPET MEASURER 03/02/2016 Nurse visit Yvonne Cassidy MD 02/19/2016 Nurse visit Yvonne Cassidy MD 02/12/2016 Office visit Jessie Mock CARPET MEASURER 02/03/2016 Nurse visit Yvonne Cassidy MD 01/27/2016 Nurse visit Yvonne Cassidy MD 01/15/2016 Nurse visit Yvonne Cassidy MD 01/08/2016 Office visit Jessie Mock CARPET MEASURER 12/25/2015 Nurse visit Yvonne Cassidy MD 12/09/2015 Nurse visit Yvonne Cassidy MD 12/02/2015 Nurse visit Yvonne Cassidy MD 11/29/2015 Nurse visit Donte Hastings CARPET MEASURER 11/28/2015 Nurse visit Jessie Mock CARPET MEASURER 11/27/2015 Office visit Jessie Mock CARPET MEASURER 11/25/2015 Office visit Donte Hastings CARPET MEASURER 11/18/2015 Nurse visit Donte Hastings CARPET MEASURER 11/11/2015 Nurse visit Jessie Nish CARPET MEASURER 11/04/2015 Nurse visit Donte Hastings CARPET MEASURER 10/29/2015 Office visit Jessie Mock CARPET MEASURER 10/28/2015 Nurse visit Jessie Mock CARPET MEASURER 10/21/2015 Nurse visit Glenn Tejeda MD 10/15/2015 Nurse visit Francisco J Jesus DO 10/09/2015 Nurse visit Glenn Tejeda MD 10/02/2015 Office visit April Atkinson CARPET MEASURER 10/01/2015 Nurse visit Jessie Mock CARPET MEASURER 09/11/2015 Nurse visit Yvonne Cassidy MD 09/05/2015 [...] visit 05/29/2015 Office visit Karolyn Millan CARPET MEASURER 05/29/2015 Nurse visit Yvonne Cassidy MD 05/14/2015 Nurse visit Francisco J Jesus DO 05/09/2015 Nurse visit Yvonne Casisdy MD 04/30/2015 Nurse visit Yvonne Cassidy MD 04/23/2015 Nurse visit Yvonne Cassidy MD 04/18/2015 Nurse visit Nidia Darby CARPET MEASURER 04/09/2015 Nurse visit Yvonne Cassidy MD 04/01/2015 Nurse visit Yvonne Cassidy MD 03/27/[address] Cody Horvath MD 03/25/2015 [facility] [place] Park MD 03/19/2015 Nurse visit Yvonne Cassidy MD 03/19/2015 Office visit Nidia Darby CARPET MEASURER 03/04/2015 Nurse visit Yvonne Cassidy MD 02/25/2015 [...] visit 12/31/2014 Office visit Karolyn Millan CARPET MEASURER 12/24/2014 Nurse visit Yvonne Cassidy MD 12/17/2014 Nurse visit Yvonne Cassidy MD 12/13/2014 Nurse visit Yvonne Cassidy MD 11/28/2014 Nurse visit Yvonne Cassidy MD 11/19/2014 Nurse visit Yvonne Cassidy MD 11/12/2014 Nurse visit Yvonne Cassidy MD 11/05/2014 Nurse visit Yvonne Cassidy MD 11/05/2014 [facility] [place] MD 10/29/2014 Nurse visit Yvonne Cassidy MD 10/24/2014 Nurse visit Yvonne Cassidy MD 10/15/2014 Nurse visit Yvonne Cassidy MD 10/11/2014 Office visit Karolyn Millan CARPET MEASURER 10/09/2014 Nurse visit Yvonne Cassidy MD 10/04/2014 Nurse visit Yvonne Cassidy MD 09/19/2014 Surgery Karolyn Millan CARPET MEASURER 09/13/2014 Office visit Yvonne Cassidy MD 09/06/2014 Nurse visit Yvonne Cassidy MD 08/28/2014 [facility] Chauncey Hogan MD 08/28/2014 [facility] Joe Thomas MD 08/23/2014 Nurse visit Yvonne Cassidy MD 08/22/2014 Surgery Joe Thomas MD 08/16/2014 Nurse visit Yvonne Cassidy MD 08/07/2014 Nurse visit Yvonne Cassidy MD 08/01/2014 Nurse visit Jessie Mock CARPET MEASURER 07/25/2014 Nurse visit Nidia Darby CARPET MEASURER 07/16/2014 Nurse visit Yvonne Cassidy MD 07/09/2014 [...] MD 03/20/2014 Nurse visit Jessie Mock CARPET MEASURER 03/13/2014 Nurse visit Donte Hastings CARPET MEASURER 03/07/2014 Nurse visit Yvonne Cassidy MD 02/27/2014 Nurse visit Jessie Mock CARPET MEASURER 02/20/2014 Nurse visit Donte Hastings CARPET MEASURER 02/13/2014 Nurse visit Donte Hastings CARPET MEASURER 02/13/2014 Procedures Joe Thomas MD 02/07/2014 Office visit Joe Thomas MD 02/06/2014 Nurse visit Yvonne Cassidy MD 01/17/2014 Nurse visit Nidia Darby CARPET MEASURER 01/10/2014 Nurse visit Yvonne Cassidy MD 01/02/2014 Nurse visit Yvonne Cassidy MD 12/26/2013 Nurse visit Yvonne Cassidy MD 12/18/2013 Nurse visit Yvonne Cassidy MD 12/12/2013 Nurse visit Yvonne Cassidy MD 12/05/2013 Nurse visit Yvonne Cassidy MD 11/28/2013 Nurse visit Yvonne Cassidy MD 11/21/2013 Nurse visit Yvonne Cassidy MD 11/14/2013 Nurse visit Yvonne Cassidy MD 11/07/2013 Nurse visit Nidia Draby CARPET MEASURER 10/31/2013 Nurse visit Nidia Darby CARPET MEASURER 10/25/2013 Nurse visit Nidia Darby CARPET MEASURER 10/18/2013 Voided Nidia Darby CARPET MEASURER 10/10/2013 Voided Yvonne Cassidy MD 10/03/2013 Nurse [...] Mart MD 04/18/2013 Nurse visit Nidia Darby CARPET MEASURER 04/04/2013 Nurse visit Nidia Darby CARPET MEASURER 03/28/2013 Nurse visit Nidia Darby CARPET MEASURER 03/21/2013 Nurse visit Nidia Darby CARPET MEASURER 03/13/2013 Nurse visit Nidia Darby CARPET MEASURER 03/09/2013 Nurse visit Nidia Darby CARPET MEASURER 03/02/2013 Nurse visit Nidia Darby CARPET MEASURER 02/21/2013 Nurse visit Nidia Darby CARPET MEASURER 02/13/2013 Office visit Nidia Darby CARPET MEASURER 02/06/2013 Nurse visit Bria Mart MD 01/31/2013 [...] MD 10/04/2012 Nurse visit Nidia Darby CARPET MEASURER 09/27/2012 Nurse visit Bria Mart MD 09/22/2012 [...] MD 06/07/2012 Nurse visit Nidia Darby CARPET MEASURER 06/07/2012 Voided Francisco J Jesus DO 06/01/2012 [...] MD 09/08/2011 Office visit Jessie Mock CARPET MEASURER 09/01/2011 Nurse visit Bria Mart MD 08/21/2011 [...] visit Bria Mart MD 03/30/2011 Office visit rBia Mart MD 03/25/2011 Nurse visit Bria Mart MD 02/25/2011 Office visit Bria Mart MD 12/30/2010 Office visit Bria Mart MD 11/12/2010 Office visit Bria Mart MD 06/03/2010 Office visit Bria Mart MD 05/26/2010 Office visit Bria Mart MD 11/07/2009 Office visit Bria Mart MD 05/29/2009 Office visit Marium GOLDEN
--- OUTSIDE RECORDS SUMMARY | 2017-05-06 14:19 | XMS REPORT ---
Author Author Yvonne Cassidy Organization [facility] Address [address] [place], [place] [id number] Care Team Providers Care Automotive Services Manager Name Role Phone Yvonne Cassidy PCP Yvonne [...] Reviewed 08/21/2011 12:00 AM Depo-Medrol 40 mg ND#[id number] Reviewed 03/02/2016 12:00 AM IMMUNOTHERAPY INJECTIONS Reviewed [...] Reviewed 06/01/2016 12:00 AM IMMUNOTHERAPY INJECTIONS Reviewed 10/20/2011 12:00 AM IMMUNOTHERAPY INJECTIONS Reviewed 10/29/2011 12:00 AM IMMUNOTHERAPY INJECTIONS Reviewed 11/03/2011 12:00 AM IMMUNOTHERAPY INJECTIONS Reviewed 11/10/2011 12:00 AM IMMUNOTHERAPY INJECTIONS Reviewed 11/17/2011 12:00 AM IMMUNOTHERAPY INJECTIONS Reviewed 11/27/2011 12:00 AM THER/PROPH/DIAG INJ SC/IM Reviewed 11/27/2011 12:00 AM Depo-Medrol 40 mg ND#[id number] Reviewed 12/01/2011 12:00 AM IMMUNOTHERAPY INJECTIONS Reviewed [...] 02/13/2013 12:00 AM Decadron, Per 1 Mg [facility]# [address]-04 Reviewed 02/13/2013 12:00 AM Depo-Medrol, Per 80 Mg [facility]#6114-2919-55 Reviewed 06/05/2013 12:00 AM MAMMOGRAM SCREENING Returned [...] CVX Influenza 06/02/2010 sanofi pasteur PMC Fluzone [id number] Intramuscular Left Deltoid 06/02/2010 02/25/2010 999 Influenza 05/09/2015 sanofi pasteur PMC Fluzone [id number] Intramuscular Left Deltoid 05/09/2015 02/22/2015 141 History [...] to other allergen Jun 01 2016 4:37PM Payers Insurance Name Company Name Plan Name Plan Number Policy Number Policy Group Number [id number] June [facility] Self Insurance Fund *INVALID State Self Insurance [id number] N/[place] [id number] Wednesday, 2015 History of Encounters Visit Date Visit Type Provider 06/01/2016 Nurse visit Yvonne Cassidy MD 05/27/2016 Nurse visit Yvonne Cassidy MD 05/11/2016 Nurse visit Yvonne Cassidy MD 05/05/2016 Nurse visit Yvonne Cassidy MD 04/29/2016 Nurse visit Yvonne Cassidy MD 04/23/2016 Office visit Jessie Mock KITCHEN HAND 04/13/2016 Nurse visit Yvonne Cassidy MD 04/07/2016 Nurse visit Yvonne Cassidy MD 04/01/2016 Office visit Jessie Mock KITCHEN HAND 03/26/2016 Nurse visit Yvonne Cassidy MD 03/17/2016 Nurse visit Yvonne Cassidy MD 03/11/2016 Nurse visit Yvonne Cassidy MD 03/04/2016 Office visit Jessie Mock KITCHEN HAND 03/02/2016 Nurse visit Yvonne Cassidy MD 02/19/2016 Nurse visit Yvonne Cassidy MD 02/12/2016 Office visit Jessie Mock KITCHEN HAND 02/03/2016 Nurse visit Yvonne Cassidy MD 01/27/2016 Nurse visit Yvonne Cassidy MD 01/15/2016 Nurse visit Yvonne Cassidy MD 01/08/2016 Office visit Jessie Mock KITCHEN HAND 12/25/2015 Nurse visit Yvonne Cassidy MD 12/09/2015 Nurse visit Yvonne Cassidy MD 12/02/2015 Nurse visit Yvonne Cassidy MD 11/29/2015 Nurse visit Donte Hastings KITCHEN HAND 11/28/2015 Nurse visit Jessie Mock KITCHEN HAND 11/27/2015 Office visit Jessie Mock KITCHEN HAND 11/25/2015 Office visit Donte Hastings KITCHEN HAND 11/18/2015 Nurse visit Donte Hastings KITCHEN HAND 11/11/2015 Nurse visit Jessie Mock KITCHEN HAND 11/04/2015 Nurse visit Donte Hastings KITCHEN HAND 10/29/2015 Office visit Jessie Mock KITCHEN HAND 10/28/2015 Nurse visit Jessie Mock KITCHEN HAND 10/21/2015 Nurse visit Glenn Tejeda MD 10/15/2015 Nurse visit Francisco J Jesus DO 10/09/2015 Nurse visit Glenn Tejeda MD 10/02/2015 Office visit April Atkinson KITCHEN HAND 10/01/2015 Nurse visit Jessie Mock KITCHEN HAND 09/11/2015 Nurse visit Yvonne Cassidy MD 09/05/2015 [...] Office visit 05/29/2015 Office visit Karolyn Millan KITCHEN HAND 05/29/2015 Nurse visit Yvonne Cassidy MD 05/14/2015 Nurse visit Francisco J Jesus DO 05/09/2015 Nurse visit Yvonne Cassidy MD 04/30/2015 Nurse visit Yvonne Cassidy MD 04/23/2015 Nurse visit Yvonne Cassidy MD 04/18/2015 Nurse visit Nidia Darby KITCHEN HAND 04/09/2015 Nurse visit Yvonne Cassidy MD 04/01/2015 Nurse visit Yvonne Cassidy MD 03/27/[address] Cody Horvath MD 03/25/2015 [facility] Alexander Park MD 03/19/2015 Nurse visit Yvonne Cassidy MD 03/19/2015 Office visit Nidia Darby KITCHEN HAND 03/04/2015 Nurse visit Yvonne Cassidy MD 02/25/2015 [...] Office visit 12/31/2014 Office visit Karolyn Millan KITCHEN HAND 12/24/2014 Nurse visit Yvonne Cassidy MD 12/17/2014 Nurse visit Yvonne Cassidy MD 12/13/2014 Nurse visit Yvonne Cassidy MD 11/28/2014 Nurse visit Yvonne Cassidy MD 11/19/2014 Nurse visit Yvonne Cassidy MD 11/12/2014 Nurse visit Yvonne Cassidy MD 11/05/2014 Nurse visit Yvonne Cassidy MD 11/05/2014 [facility] MD 10/29/2014 Nurse visit Yvonne Cassidy MD 10/24/2014 Nurse visit Yvonne Cassidy MD 10/15/2014 Nurse visit Yvonne Cassidy MD 10/11/2014 Office visit Karolyn Millan KITCHEN HAND 10/09/2014 Nurse visit Yvonne Cassidy MD 10/04/2014 Nurse visit Yvonne Cassidy MD 09/19/2014 Surgery Karolyn Millan KITCHEN HAND 09/13/2014 Office visit Yvonne Cassidy MD 09/06/2014 Nurse visit Yvonne Cassidy MD 08/28/2014 [facility] Chaun[facility]y Hogan MD 08/28/2014 [facility] Joe Thomas MD 08/23/2014 Nurse visit Yvonne Cassidy MD 08/22/2014 Surgery Joe Thomas MD 08/16/2014 Nurse visit Yvonne Cassidy MD 08/07/2014 Nurse visit Yvonne Cassidy MD 08/01/2014 Nurse visit Jessie Mock KITCHEN HAND 07/25/2014 Nurse visit Nidia Darby KITCHEN HAND 07/16/2014 Nurse visit Yvonne Cassidy MD 07/09/2014 [...] Cassidy MD 03/20/2014 Nurse visit Jessie Mock KITCHEN HAND 03/13/2014 Nurse visit Donte Hastings KITCHEN HAND 03/07/2014 Nurse visit Yvonne Cassidy MD 02/27/2014 Nurse visit Jessie Mock KITCHEN HAND 02/20/2014 Nurse visit Donte Hastings KITCHEN HAND 02/13/2014 Nurse visit Donte Hastings KITCHEN HAND 02/13/2014 Procedures Joe Thomas MD 02/07/2014 Office visit Joe Thomas MD 02/06/2014 Nurse visit Yvonne Cassidy MD 01/17/2014 Nurse visit Nidia Darby KITCHEN HAND 01/10/2014 Nurse visit Yvonne Cassidy MD 01/02/2014 Nurse visit Yvonne Cassidy MD 12/26/2013 Nurse visit Yvonne Cassidy MD 12/18/2013 Nurse visit Yvonne Cassidy MD 12/12/2013 Nurse visit Yvonne Cassidy MD 12/05/2013 Nurse visit Yvonne Cassidy MD 11/28/2013 Nurse visit Yvonne Cassidy MD 11/21/2013 Nurse visit Yvonne Cassidy MD 11/14/2013 Nurse visit Yvonne Cassidy MD 11/07/2013 Nurse visit Nidia Darby KITCHEN HAND 10/31/2013 Nurse visit Nidia Darby KITCHEN HAND 10/25/2013 Nurse visit Nidia Darby KITCHEN HAND 10/18/2013 Voided Nidia Darby KITCHEN HAND 10/10/2013 Voided Yvonne Cassidy MD 10/03/2013 Nurse [...] Mart MD 04/18/2013 Nurse visit Nidia Darby KITCHEN HAND 04/04/2013 Nurse visit Nidia Darby KITCHEN HAND 03/28/2013 Nurse visit Nidia Darby KITCHEN HAND 03/21/2013 Nurse visit Nidia Darby KITCHEN HAND 03/13/2013 Nurse visit Nidia Darby KITCHEN HAND 03/09/2013 Nurse visit Nidia Darby KITCHEN HAND 03/02/2013 Nurse visit Nidia Darby KITCHEN HAND 02/21/2013 Nurse visit Nidia Darby KITCHEN HAND 02/13/2013 Office visit Nidia Darby KITCHEN HAND 02/06/2013 Nurse visit Bria Mart MD 01/31/2013 [...] Mart MD 10/04/2012 Nurse visit Nidia Darby KITCHEN HAND 09/27/2012 Nurse visit Bria Mart MD 09/22/2012 [...] Bria Mart MD 06/07/2012 Nurse visit Nidia Sheridan Darby KITCHEN HAND 06/07/2012 Voided Francisco J Jesus DO 06/01/2012 [...] Bria Mart MD 10/29/2011 Nurse visit Bria Mrat MD 10/20/2011 Nurse visit Bria aMrt MD 10/13/2011 Nurse visit Bria Mart MD 10/06/2011 Nurse visit Bria Mart MD 10/01/2011 Nurse visit Bria Mart MD 09/24/2011 Nurse visit Bria Mart MD 09/17/2011 Nurse visit Bria Mart MD 09/08/2011 Nurse visit Bria Mart MD 09/08/2011 Office visit Jessie Mock KITCHEN HAND 09/01/2011 Nurse visit Bria Mart MD 08/21/2011 [...]
[2017-05-06 14:20] LABS: PROTHROMBIN TIME PATIENT 13.1 SEC (12.2-14.7)
--- OUTSIDE RECORDS SUMMARY | 2017-05-06 14:22 | XMS REPORT ---
Author Author Karolyn Millan [facility] Address [address] [place], [place] [id number] Care Team Providers Care Ribber Name Role Phone Karolyn Millan PCP Unavailable Yvonne Cassidy PreferredProvider Allergies and Adverse Reactions Name Reaction Notes Ceftin rash erythromycin rash PENICILLINS rash Plan of Treatment Planned Activity Comments Planned Date Planned Time Plan/Goal Allergy Injection Multiple 04/18/2015 12:00 AM Allergy Injection Multiple 03/27/2015 12:00 AM Allergy Injection Multiple 07/22/2015 12:00 AM Allergy Injection Multiple 11/11/2015 12:00 AM EKG. 04/23/2016 12:00 AM Pap smear 06/02/2016 12:00 AM Allergy Injection Multiple 01/05/2012 12:00 [...] HC BMI BSA BMI Percentile O2 Sat(%) 06/02/2016 3:29:00 PM 135 mmHg 67 mmHg [...] Depo-Medrol 40 mg [facility]#[id number] Reviewed 03/02/2016 12:00 AM IMMUNOTHERAPY INJECTIONS Reviewed [...] AM IMMUNOTHERAPY INJECTIONS Reviewed 06/02/2016 12:00 AM MAMMOGRAM BOTH BREASTS Reviewed 06/02/2016 12:00 AM SPECIMEN HANDLING OFFICE-LAB Reviewed 10/20/2011 12:00 AM IMMUNOTHERAPY INJECTIONS Reviewed 10/29/2011 12:00 AM IMMUNOTHERAPY INJECTIONS Reviewed 11/03/2011 12:00 AM IMMUNOTHERAPY INJECTIONS Reviewed 11/10/2011 12:00 AM IMMUNOTHERAPY INJECTIONS Reviewed 11/17/2011 12:00 AM IMMUNOTHERAPY INJECTIONS Reviewed 11/27/2011 12:00 AM THER/PROPH/DIAG INJ SC/IM Reviewed 11/27/2011 12:00 AM Depo-Medrol 40 mg [facility]#[id number] Reviewed 12/01/2011 12:00 AM IMMUNOTHERAPY INJECTIONS Reviewed [...] Per 1 Mg [facility]# [address]-76 Reviewed 02/13/2013 12:00 AM Depo-Medrol, Per 80 Mg [facility]#3401-4370-76 Reviewed 06/05/2013 12:00 AM MAMMOGRAM SCREENING Returned [...] CVX Influenza 06/02/2010 sanofi pasteur PMC Fluzone [id number] Intramuscular Left Deltoid 06/02/2010 02/25/2010 999 Influenza 05/09/2015 sanofi pasteur PMC Fluzone [id number] Intramuscular Left Deltoid 05/09/2015 02/22/2015 141 History [...] mammogram, encounter for Jun 02 2016 3:32PM Payers Insurance Name Company Name Plan Name Plan Number Policy Number Policy Group Number Start Date [employer] [place] [id number] June [facility] Self Insurance Fund *INVALID State Self Insurance [id number] N/A Comp [place] [id number] Wednesday, 2015 History of Encounters Visit Date Visit Type Provider 06/02/2016 Office visit 06/02/2016 Office visit Karolyn Millan PROCESSING ASSOCIATE 06/01/2016 Nurse visit Yvonne Cassidy MD 05/27/2016 Nurse visit Yvonne Cassidy MD 05/11/2016 Nurse visit Yvonne Cassidy MD 05/05/2016 Nurse visit Yvonne Cassidy MD 04/29/2016 Nurse visit Yvonne Cassidy MD 04/23/2016 Office visit Jessie Mock PROCESSING ASSOCIATE 04/13/2016 Nurse visit Yvonne Cassidy MD 04/07/2016 Nurse visit Yvonne Cassidy MD 04/01/2016 Office visit Jessie Mock PROCESSING ASSOCIATE 03/26/2016 Nurse visit Yvonne Cassidy MD 03/17/2016 Nurse visit Yvonne Cassidy MD 03/11/2016 Nurse visit Yvonne Cassidy MD 03/04/2016 Office visit Jessie Mock PROCESSING ASSOCIATE 03/02/2016 Nurse visit Yvonne Cassidy MD 02/19/2016 Nurse visit Yvonne Cassidy MD 02/12/2016 Office visit Jessie Mock PROCESSING ASSOCIATE 02/03/2016 Nurse visit Yvonne Cassidy MD 01/27/2016 Nurse visit Yvonne Cassidy MD 01/15/2016 Nurse visit Yvonne Cassidy MD 01/08/2016 Office visit Jessie Mock PROCESSING ASSOCIATE 12/25/2015 Nurse visit Yvonne Cassidy MD 12/09/2015 Nurse visit Yvonne Cassidy MD 12/02/2015 Nurse visit Yvonne Cassidy MD 11/29/2015 Nurse visit Donte Hastings PROCESSING ASSOCIATE 11/28/2015 Nurse visit Jessie Mock PROCESSING ASSOCIATE 11/27/2015 Office visit Jessie Mock PROCESSING ASSOCIATE 11/25/2015 Office visit Donte Hastings PROCESSING ASSOCIATE 11/18/2015 Nurse visit Donte Hastings PROCESSING ASSOCIATE 11/11/2015 Nurse visit Jessie Mock PROCESSING ASSOCIATE 11/04/2015 Nurse visit Donte Hastings PROCESSING ASSOCIATE 10/29/2015 Office visit Jessie Mock PROCESSING ASSOCIATE 10/28/2015 Nurse visit Jessie Nish PROCESSING ASSOCIATE 10/21/2015 Nurse visit Glenn Tejeda MD 10/15/2015 Nurse visit Francisco J Jesus DO 10/09/2015 Nurse visit Glenn Tejeda MD 10/02/2015 Office visit April Deepakgordy PROCESSING ASSOCIATE 10/01/2015 Nurse visit Jessie Mock PROCESSING ASSOCIATE 09/11/2015 Nurse visit Yvonne Cassidy MD 09/05/2015 [...] Office visit 05/29/2015 Office visit Karolyn Millan PROCESSING ASSOCIATE 05/29/2015 Nurse visit Yvonne Cassidy MD 05/14/2015 Nurse visit Francisco J Jesus DO 05/09/2015 Nurse visit Yvonne Cassidy MD 04/30/2015 Nurse visit Yvonne Cassidy MD 04/23/2015 Nurse visit Yvonne Cassidy MD 04/18/2015 Nurse visit Nidia Darby PROCESSING ASSOCIATE 04/09/2015 Nurse visit Yvonne Cassidy MD 04/01/2015 Nurse visit Yvonne Cassidy MD 03/27/[address] Cody Horvath MD 03/25/2015 [facility] Alexander Park MD 03/19/2015 Nurse visit Yvonne Cassidy MD 03/19/2015 Office visit Nidia Darby PROCESSING ASSOCIATE 03/04/2015 Nurse visit Yvonne Cassidy MD 02/25/2015 [...] Office visit 12/31/2014 Office visit Karolyn Millan PROCESSING ASSOCIATE 12/24/2014 Nurse visit Yvonne Cassidy MD 12/17/2014 Nurse visit Yvonne Cassidy MD 12/13/2014 Nurse visit Yvonne Cassidy MD 11/28/2014 Nurse visit Yvonne Cassidy MD 11/19/2014 Nurse visit Yvonne Cassidy MD 11/12/2014 Nurse visit Yvonne Cassidy MD 11/05/2014 Nurse visit Yvonne Cassidy MD 11/05/2014 [facility] Alexander Park MD 10/29/2014 Nurse visit Yvonne Cassidy MD 10/24/2014 Nurse visit Yvonne Cassidy MD 10/15/2014 Nurse visit Yvonne Cassidy MD 10/11/2014 Office visit Karolyn Millan PROCESSING ASSOCIATE 10/09/2014 Nurse visit Yvonne Cassidy MD 10/04/2014 Nurse visit Yvonne Cassidy MD 09/19/2014 Surgery Karolyn Millan PROCESSING ASSOCIATE 09/13/2014 Office visit Yvonne Cassidy MD 09/06/2014 Nurse visit Yvonne Cassidy MD 08/28/2014 [facility] Chauncey Hogan MD 08/28/2014 [facility] Joe Thomas MD 08/23/2014 Nurse visit vYonne Cassidy MD 08/22/2014 Surgery Joe Thomas MD 08/16/2014 Nurse visit Yvonne Cassidy MD 08/07/2014 Nurse visit Yvonne Cassidy MD 08/01/2014 Nurse visit Jessie Mock PROCESSING ASSOCIATE 07/25/2014 Nurse visit Nidia Darby PROCESSING ASSOCIATE 07/16/2014 Nurse visit Yvonne Cassidy MD 07/09/2014 [...] Cassidy MD 03/20/2014 Nurse visit Jessie Mock PROCESSING ASSOCIATE 03/13/2014 Nurse visit Donte Hastings PROCESSING ASSOCIATE 03/07/2014 Nurse visit Yvonne Cassidy MD 02/27/2014 Nurse visit Jessie Mock PROCESSING ASSOCIATE 02/20/2014 Nurse visit Donte Hastings PROCESSING ASSOCIATE 02/13/2014 Nurse visit Donte Hastings PROCESSING ASSOCIATE 02/13/2014 Procedures Joe Thomas MD 02/07/2014 Office visit Joe Thomas MD 02/06/2014 Nurse visit Yvonne Cassidy MD 01/17/2014 Nurse visit Nidia Darby PROCESSING ASSOCIATE 01/10/2014 Nurse visit Yvonne Cassidy MD 01/02/2014 Nurse visit Yvonne Cassidy MD 12/26/2013 Nurse visit Yvonne Cassidy MD 12/18/2013 Nurse visit Yvonne Cassidy MD 12/12/2013 Nurse visit Yvonne Cassidy MD 12/05/2013 Nurse visit Yvonne Cassidy MD 11/28/2013 Nurse visit Yvonne Cassidy MD 11/21/2013 Nurse visit Yvonne Cassidy MD 11/14/2013 Nurse visit Yvonne Cassidy MD 11/07/2013 Nurse visit Nidia Darby PROCESSING ASSOCIATE 10/31/2013 Nurse visit Nidia Darby PROCESSING ASSOCIATE 10/25/2013 Nurse visit Nidia Darby PROCESSING ASSOCIATE 10/18/2013 Voided Nidia Darby PROCESSING ASSOCIATE 10/10/2013 Voided Yvonne Cassidy MD 10/03/2013 Nurse [...] Mart MD 04/18/2013 Nurse visit Nidia Darby PROCESSING ASSOCIATE 04/04/2013 Nurse visit Nidia Darby PROCESSING ASSOCIATE 03/28/2013 Nurse visit Nidia Darby PROCESSING ASSOCIATE 03/21/2013 Nurse visit Nidia Darby PROCESSING ASSOCIATE 03/13/2013 Nurse visit Nidia Darby PROCESSING ASSOCIATE 03/09/2013 Nurse visit Nidia Darby PROCESSING ASSOCIATE 03/02/2013 Nurse visit Nidia Darby PROCESSING ASSOCIATE 02/21/2013 Nurse visit Nidia Darby PROCESSING ASSOCIATE 02/13/2013 Office visit Nidia Darby PROCESSING ASSOCIATE 02/06/2013 Nurse visit Bria Mart MD 01/31/2013 [...] Mart MD 10/04/2012 Nurse visit Nidia Darby PROCESSING ASSOCIATE 09/27/2012 Nurse visit Bria Mart MD 09/22/2012 [...] Mart MD 06/07/2012 Nurse visit Nidia Darby PROCESSING ASSOCIATE 06/07/2012 Voided Francisco J Jesus DO 06/01/2012 [...] Mart MD 09/08/2011 Office visit Jessie Mock PROCESSING ASSOCIATE 09/01/2011 Nurse visit Bria Mart MD 08/21/2011 [...]
--- OUTSIDE RECORDS SUMMARY | 2017-05-06 14:24 | XMS REPORT ---
Author Author Yvonne Cassidy [facility] Address [address] [place], [place] [address] Care Team Providers Care Sed Middle School Teacher Name Role Phone Yvonne Cassidy PCP Allergies and Adverse Reactions Name Reaction Notes Ceftin rash Erythromycin rash PENICILLINS rash Plan of Treatment Planned Activity Comments Planned Date Planned Time Plan/Goal IMMUNOTHERAPY INJECTIONS 04/18/2015 12:00 AM IMMUNOTHERAPY INJECTIONS 04/30/2015 12:00 AM IMMUNOTHERAPY INJECTIONS 01/05/2012 12:00 AM [...] 12:00 AM IMMUNOTHERAPY INJECTIONS 03/19/2015 12:00 AM IMMUNOTHERAPY INJECTIONS 03/27/2015 12:00 AM Medications Active Name Start Date Estimated Completion Date SIG Comments bupropion HCl 300 mg oral tablet extended release 24 hr 05/16/20142014 TAKE 1 TABLET BY MOUTH EVERY DAY for 30 days Synthroid 175 mcg oral tablet 05/16/2014 05/11/2015 TAKE 1 TABLET BY MOUTH ONCE DAILY meloxicam 15 mg oral tablet 08/21/2014 TAKE [...] TO 2 SPRAYS INTO EACH NOSTRIL DAILY Name Start Date Expiration Date SIG [...] NASAL ROUTE DAILY for 30 days hydrochlorothiazide 12.5 mg oral capsule 09/19/2014 01/17/2015 [...] HC BMI BSA BMI Percentile O2 Sat(%) 03/19/2015 3:36:00 PM 130 mmHg 72 mmHg [...] Reviewed 03/25/2011 12:00 AM IMMUNOTHERAPY INJECTIONS Reviewed 04/02/2011 [...] Reviewed 08/21/2011 12:00 AM Depo-Medrol 40 mg [facility]#[id number] Reviewed 09/08/2011 12:00 AM IMMUNOTHERAPY INJECTIONS Reviewed [...] Reviewed 11/27/2011 12:00 AM Depo-Medrol 40 mg [facility]#[id number] Reviewed 12/01/2011 12:00 AM IMMUNOTHERAPY INJECTIONS Reviewed [...] 02/13/2013 12:00 AM Decadron, Per 1 Mg [facility]# [address]-52 Reviewed 02/13/2013 12:00 AM Depo-Medrol, Per 80 Mg [facility]#9604-7520-37 Reviewed 06/05/2013 12:00 AM MAMMOGRAM SCREENING Returned [...] BILI 0.50 mg/dLCALCIUM 10.10 mg/dLeGFR >60 mL/min/1.73 [id number] 10.0 secsINR 1.0 PTT 28.20 secs 08/28/2014 [...] CVX Influenza 06/02/2010 sanofi pasteur PMC Fluzone [id number] Intramuscular Left Deltoid 06/02/2010 02/25/2010 999 History [...] to other allergen Apr 30 2015 4:12PM Payers Insurance Name Company Name Plan Name Plan Number Policy Number Policy Group Number Start Date [facility] [id number] [place] *[place] Self Insurance [id number] N /A History of Encounters Visit Date Visit Type Provider 04/30/2015 Nurse visit Yvonne Cassidy MD 04/23/2015 Nurse visit Yvonne Cassidy MD 04/18/2015 Nurse visit Nidia Darby ASSEMBLER INSULATOR 04/09/2015 Nurse visit Yvonne Cassidy MD 04/01/2015 Nurse visit Yvonne Cassidy MD 03/27/[address] Cody Horvath MD 03/19/2015 Nurse visit Yvonne Cassidy MD 03/19/2015 Office visit Nidia Darby ASSEMBLER INSULATOR 03/04/2015 Nurse visit Yvonne Cassidy MD 02/25/2015 [...] Cassidy MD 12/31/2014 Office visit Karolyn Millan ASSEMBLER INSULATOR 12/24/2014 Nurse visit Yvonne Cassidy MD 12/17/2014 Nurse visit Yvonne Cassidy MD 12/13/2014 Nurse visit Yvonne Cassidy MD 11/28/2014 Nurse visit Yvonne Cassidy MD 11/19/2014 Nurse visit Yvonne Cassidy MD 11/12/2014 Nurse visit Yvonne Cassidy MD 11/05/2014 Nurse visit Yvonne Cassidy MD 11/05/2014 [facility] Darin Park MD 10/29/2014 Nurse visit Yvonne Cassidy MD 10/24/2014 Nurse visit Yvonne Cassidy MD 10/15/2014 Nurse visit Yvonne Cassidy MD 10/11/2014 Office visit Karolyn Millan ASSEMBLER INSULATOR 10/09/2014 Nurse visit Yvonne Cassidy MD 10/04/2014 Nurse visit Yvonne Cassidy MD 09/19/2014 Surgery Karolyn Millan ASSEMBLER INSULATOR 09/13/2014 Office visit Yvonne Cassidy MD 09/06/2014 Nurse visit Yvonne Cassidy MD 08/28/2014 [facility] Chauncey Hogan MD 08/28/2014 [facility] Joe Thomas MD 08/23/2014 Nurse visit Yvonne Cassidy MD 08/22/2014 Surgery Joe Thomas MD 08/16/2014 Nurse visit Yvonne Cassidy MD 08/07/2014 Nurse visit Yvonne Cassidy MD 08/01/2014 Nurse visit Jessie Mock ASSEMBLER INSULATOR 07/25/2014 Nurse visit Nidia Darby ASSEMBLER INSULATOR 07/16/2014 Nurse visit Yvonne Cassidy MD 07/09/2014 [...] Cassidy MD 03/20/2014 Nurse visit Jessie Mock ASSEMBLER INSULATOR 03/13/2014 Nurse visit Donte Hastings ASSEMBLER INSULATOR 03/07/2014 Nurse visit Yvonne Cassidy MD 02/27/2014 Nurse visit Jessie Mock ASSEMBLER INSULATOR 02/20/2014 Nurse visit Donte Hastings ASSEMBLER INSULATOR 02/13/2014 Nurse visit Donte Hastings ASSEMBLER INSULATOR 02/13/2014 Procedures Joe Thomas MD 02/07/2014 Office visit Joe Thomas MD 02/06/2014 Nurse visit Yvonne Cassidy MD 01/17/2014 Nurse visit Nidia Darby ASSEMBLER INSULATOR 01/10/2014 Nurse visit Yvonne Cassidy MD 01/02/2014 Nurse visit Yvonne Cassidy MD 12/26/2013 Nurse visit Yvonne Cassidy MD 12/18/2013 Nurse visit Yvonne Cassidy MD 12/12/2013 Nurse visit Yvonne Cassidy MD 12/05/2013 Nurse visit Yvonne Cassidy MD 11/28/2013 Nurse visit Yvonne Cassidy MD 11/21/2013 Nurse visit Yvonne Cassidy MD 11/14/2013 Nurse visit Yvonne Cassidy MD 11/07/2013 Nurse visit Nidia Darby ASSEMBLER INSULATOR 10/31/2013 Nurse visit Nidia Darby ASSEMBLER INSULATOR 10/25/2013 Nurse visit Nidia Darby ASSEMBLER INSULATOR 10/18/2013 Voided Nidia Darby ASSEMBLER INSULATOR 10/10/2013 Voided Yvonne Cassidy MD 10/03/2013 Nurse [...] Bria Mart MD 05/01/2013 Nurse visit Bria Mrat MD 04/18/2013 Nurse visit Nidia Darby ASSEMBLER INSULATOR 04/04/2013 Nurse visit Nidia Darby ASSEMBLER INSULATOR 03/28/2013 Nurse visit Nidia Darby ASSEMBLER INSULATOR 03/21/2013 Nurse visit Nidia Darby ASSEMBLER INSULATOR 03/13/2013 Nurse visit Nidia Darby ASSEMBLER INSULATOR 03/09/2013 Nurse visit Nidia Darby ASSEMBLER INSULATOR 03/02/2013 Nurse visit Nidia Darby ASSEMBLER INSULATOR 02/21/2013 Nurse visit Nidia Darby ASSEMBLER INSULATOR 02/13/2013 Office visit Nidia Darby ASSEMBLER INSULATOR 02/06/2013 Nurse visit Bria Mart MD 01/31/2013 [...] Mart MD 10/04/2012 Nurse visit Nidia Darby ASSEMBLER INSULATOR 09/27/2012 Nurse visit Bria Mart MD 09/22/2012 [...] Mart MD 06/07/2012 Nurse visit Nidia Darby ASSEMBLER INSULATOR 06/07/2012 Voided Francisco J Jesus DO 06/01/2012 [...] Mart MD 09/08/2011 Office visit Jessie Mock ASSEMBLER INSULATOR 09/01/2011 Nurse visit Bria Mart MD 08/21/2011 Office visit Bria Mrat MD 08/12/2011 Nurse visit Bria Mart MD [...]
--- OUTSIDE RECORDS SUMMARY | 2017-05-06 14:28 | XMS REPORT ---
Author Author Jessie Mock [facility] Address [address] [place], [place] [id number] Care Team Providers Care Leadership Program Intern Name Role Phone Jessie Mock PCP Unavailable Yvonne Cassidy PreferredProvider Allergies and [...] 1 TABLET BY MOUTH ONCE EVERY DAY Name Start Date Expiration Date SIG Comments [...] Reviewed 08/21/2011 12:00 AM Depo-Medrol 40 mg [facility]#[id number] Reviewed 03/02/2016 12:00 AM IMMUNOTHERAPY INJECTIONS Reviewed [...] Reviewed 11/27/2011 12:00 AM Depo-Medrol 40 mg [facility]#[id number] Reviewed 12/01/2011 12:00 AM IMMUNOTHERAPY INJECTIONS Reviewed [...] Reviewed 04/05/2017 12:00 AM ASSAY OF MAGNESIUM Returned 04/21/2012 12:00 AM IMMUNOTHERAPY INJECTIONS Reviewed 04/26/2012 [...] 02/13/2013 12:00 AM Decadron, Per 1 Mg [facility]# [address]-57 Reviewed 02/13/2013 12:00 AM Depo-Medrol, Per 80 Mg [facility]#0008-8927-10 Reviewed 06/05/2013 12:00 AM MAMMOGRAM SCREENING Reviewed [...] CVX Influenza 06/02/2010 sanofi pasteur PMC Fluzone [id number] Intramuscular Left Deltoid 06/02/2010 02/25/2010 999 Influenza 05/09/2015 sanofi pasteur PMC Fluzone [id number] Intramuscular Left Deltoid 05/09/2015 02/22/2015 141 Pneumococcal 06/29/2016 Pbitn-Msebea-Rdxmmnq-Praxis WAL Prevnar 13 [id number] Intramuscular Right Deltoid 06/29/2016 09/14/2012 133 Zostavax [...] 10:17AM Localized edema Apr 05 2017 10:17AM Payers Insurance Name Company Name Plan Name Plan Number Policy Number Policy Group Number Start Date [facility] [id number] June [facility] Self Insurance Fund *INVALID State Self Insurance [id number] N/A Comp [place] [id number] Wednesday, 2015 History of Encounters Visit Date Visit Type Provider 04/05/2017 Office visit Jessie Mock APRN 03/30/2017 Nurse visit Yvonne Cassidy MD 03/24/2017 [...] Cassidy MD 12/08/2016 Nurse visit Donte Hastings ABLE BODIED TANKERMAN 12/02/2016 Nurse visit Yvonne Cassidy MD 11/16/2016 Nurse visit Yvonne Cassidy MD 11/10/2016 Nurse visit Yvonne Cassidy MD 11/02/2016 Nurse visit Donte Hastings ABLE BODIED TANKERMAN 10/28/2016 Nurse visit Yvonne Cassdiy MD 10/06/2016 Office visit MAGI JASON DO 09/15/2016 Nurse visit Francisco J Jesus DO 09/08/2016 Nurse visit Francisco J Jesus DO 09/02/2016 Nurse visit Yvonne Cassidy MD 08/25/2016 Nurse visit Yvonne Cassidy MD 08/19/2016 Nurse visit Yvonne Cassidy MD 08/13/2016 Nurse visit Yvonne Cassidy MD 08/04/2016 Nurse visit Yvonne Cassidy MD 07/29/2016 Nurse visit Yvonne Cassidy MD 07/14/2016 Nurse visit Donte Hastings ABLE BODIED TANKERMAN 07/06/2016 Nurse visit Yvonne Cassidy MD 06/29/2016 Nurse visit Yvonne Cassidy MD 06/24/2016 Nurse visit Yvonne Cassidy MD 06/16/2016 Office visit Yvonne Cassidy MD 06/14/2016 [facility] [place] Park MD 06/09/2016 Nurse visit Yvonne Cassidy MD 06/02/2016 Office visit 06/02/2016 Office visit Karolyn Millan ABLE BODIED TANKERMAN 06/01/2016 Nurse visit Yvonne Cassidy MD 05/27/2016 Nurse visit Yvonne Cassidy MD 05/11/2016 Nurse visit Yvonne Cassidy MD 05/05/2016 Nurse visit Yvonne Cassidy MD 04/29/2016 Nurse visit Yvonne Cassidy MD 04/23/2016 Office visit Jessie Mock ABLE BODIED TANKERMAN 04/13/2016 Nurse visit Yvonne Cassidy MD 04/07/2016 Nurse visit Yvonne Cassidy MD 04/01/2016 Office visit Jessie Mock ABLE BODIED TANKERMAN 03/26/2016 Nurse visit Yvonne Cassidy MD 03/17/2016 Nurse visit Yvonne Cassidy MD 03/11/2016 Nurse visit Yvonne Cassidy MD 03/04/2016 Office visit Jessie Mock ABLE BODIED TANKERMAN 03/02/2016 Nurse visit Yvonne Cassidy MD 02/19/2016 Nurse visit Yvonne Cassidy MD 02/12/2016 Office visit Jessie Mock ABLE BODIED TANKERMAN 02/03/2016 Nurse visit Yvonne Cassidy MD 01/27/2016 Nurse visit Yvonne Cassidy MD 01/15/2016 Nurse visit Yvonne Cassidy MD 01/08/2016 Office visit Jessie Mock ABLE BODIED TANKERMAN 12/25/2015 Nurse visit Yvonne Cassidy MD 12/09/2015 Nurse visit Yvonne Cassidy MD 12/02/2015 Nurse visit Yvonne Cassidy MD 11/29/2015 Nurse visit Donte Hastings ABLE BODIED TANKERMAN 11/28/2015 Nurse visit Jessie Mock ABLE BODIED TANKERMAN 11/27/2015 Office visit Jessie Nish ABLE BODIED TANKERMAN 11/25/2015 Office visit Donte Hastings ABLE BODIED TANKERMAN 11/18/2015 Nurse visit Donte Hastings ABLE BODIED TANKERMAN 11/11/2015 Nurse visit Jessie Mock ABLE BODIED TANKERMAN 11/04/2015 Nurse visit Donte Hastings ABLE BODIED TANKERMAN 10/29/2015 Office visit Jessie Nish ABLE BODIED TANKERMAN 10/28/2015 Nurse visit Jessie Nish ABLE BODIED TANKERMAN 10/21/2015 Nurse visit Glenn Tejeda MD 10/15/2015 Nurse visit Francisco J Jesus DO 10/09/2015 Nurse visit Glenn Tejeda MD 10/02/2015 Office visit April Atkinson ABLE BODIED TANKERMAN 10/01/2015 Nurse visit Jessie Mock ABLE BODIED TANKERMAN 09/11/2015 Nurse visit Yvonne Cassidy MD 09/05/2015 [...] Office visit 05/29/2015 Office visit Karolyn Millan ABLE BODIED TANKERMAN 05/29/2015 Nurse visit Yvonne Cassidy MD 05/14/2015 Nurse visit Francisco J Jesus DO 05/09/2015 Nurse visit Yvonne Cassidy MD 04/30/2015 Nurse visit Yvonne Cassidy MD 04/23/2015 Nurse visit Yvonne Cassidy MD 04/18/2015 Nurse visit Nidia Darby ABLE BODIED TANKERMAN 04/09/2015 Nurse visit Yvonne Cassidy MD 04/01/2015 Nurse visit Yvonne Cassidy MD 03/27/[address] Cody Horvath MD 03/25/2015 [facility] Darin Park MD 03/19/2015 Nurse visit Yvonne Cassidy MD 03/19/2015 Office visit Nidia Darby ABLE BODIED TANKERMAN 03/04/2015 Nurse visit Yvonne Cassidy MD 02/25/2015 [...] Office visit 12/31/2014 Office visit Karolyn Millan ABLE BODIED TANKERMAN 12/24/2014 Nurse visit Yvonne Cassidy MD 12/17/2014 Nurse visit Yvonne Cassidy MD 12/13/2014 Nurse visit Yvonne Cassidy MD 11/28/2014 Nurse visit Yvonne Cassidy MD 11/19/2014 Nurse visit Yvonne Cassidy MD 11/12/2014 Nurse visit Yvonne Cassidy MD 11/05/2014 Nurse visit Yvonne Cassidy MD 11/05/2014 [facility] Darin Park MD 10/29/2014 Nurse visit Yvonne Cassidy MD 10/24/2014 Nurse visit Yvonne Cassidy MD 10/15/2014 Nurse visit Yvonne Cassidy MD 10/11/2014 Office visit Karolyn Millan ABLE BODIED TANKERMAN 10/09/2014 Nurse visit Yvonne Cassidy MD 10/04/2014 Nurse visit Yvonne Cassidy MD 09/19/2014 Surgery Karolyn Millan ABLE BODIED TANKERMAN 09/13/2014 Office visit Yvonne Cassidy MD 09/06/2014 Nurse visit Yvonne Cassidy MD 08/28/2014 Hospital Chauncey Hogan MD 08/28/2014 Hospital Joe Thomas MD 08/23/2014 Nurse visit Yvonne Cassidy MD 08/22/2014 Surgery Joe Thomas MD 08/16/2014 Nurse visit Yvonne Cassidy MD 08/07/2014 Nurse visit Yvonne Cassidy MD 08/01/2014 Nurse visit Jessie Mock ABLE BODIED TANKERMAN 07/25/2014 Nurse visit Nidia Darby ABLE BODIED TANKERMAN 07/16/2014 Nurse visit Yvonne Cassidy MD 07/09/2014 [...] Cassidy MD 03/20/2014 Nurse visit Jessie Mock ABLE BODIED TANKERMAN 03/13/2014 Nurse visit Donte Hastings ABLE BODIED TANKERMAN 03/07/2014 Nurse visit Yvonne Cassidy MD 02/27/2014 Nurse visit Jessie Mock ABLE BODIED TANKERMAN 02/20/2014 Nurse visit Donte Hastings ABLE BODIED TANKERMAN 02/13/2014 Nurse visit Donte Hastings ABLE BODIED TANKERMAN 02/13/2014 Procedures Joe Thomas MD 02/07/2014 Office visit Joe Thomas MD 02/06/2014 Nurse visit Yvonne Cassidy MD 01/17/2014 Nurse visit Nidia Darby ABLE BODIED TANKERMAN 01/10/2014 Nurse visit Yvonne Cassidy MD 01/02/2014 Nurse visit Yvonne Cassidy MD 12/26/2013 Nurse visit Yvonne Cassidy MD 12/18/2013 Nurse visit Yvonne Cassidy MD 12/12/2013 Nurse visit Yvonne Cassidy MD 12/05/2013 Nurse visit Yvonne Cassidy MD 11/28/2013 Nurse visit Yvonne Cassidy MD 11/21/2013 Nurse visit Yvonne Cassidy MD 11/14/2013 Nurse visit Yvonne Cassidy MD 11/07/2013 Nurse visit Nidia Darby ABLE BODIED TANKERMAN 10/31/2013 Nurse visit Nidia Darby ABLE BODIED TANKERMAN 10/25/2013 Nurse visit Nidia Darby ABLE BODIED TANKERMAN 10/18/2013 Voided Nidia Darby ABLE BODIED TANKERMAN 10/10/2013 Voided Yvonne Csasidy MD 10/03/2013 Nurse visit Yvonne Cassidy MD [...] Mart MD 04/18/2013 Nurse visit Nidia Darby ABLE BODIED TANKERMAN 04/04/2013 Nurse visit Nidia Darby ABLE BODIED TANKERMAN 03/28/2013 Nurse visit Nidia Darby ABLE BODIED TANKERMAN 03/21/2013 Nurse visit Nidia Darby ABLE BODIED TANKERMAN 03/13/2013 Nurse visit Nidia Darby ABLE BODIED TANKERMAN 03/09/2013 Nurse visit Nidia Darby ABLE BODIED TANKERMAN 03/02/2013 Nurse visit Nidia Darby ABLE BODIED TANKERMAN 02/21/2013 Nurse visit Nidia Darby ABLE BODIED TANKERMAN 02/13/2013 Office visit Nidia Darby ABLE BODIED TANKERMAN 02/06/2013 Nurse visit Bria Mart MD 01/31/2013 [...] MD 10/04/2012 Nurse visit Nidia NZafar Darby ABLE BODIED TANKERMAN 09/27/2012 Nurse visit Bria Mart MD 09/22/2012 [...] MD 06/07/2012 Nurse visit Nidia GonzalesZafar Darby ABLE BODIED TANKERMAN 06/07/2012 Voided Francisco J Jesus 06/01/2012 Office [...] Mart MD 09/08/2011 Office visit Jessie Mock ABLE BODIED TANKERMAN 09/01/2011 Nurse visit Bria Mart MD 08/21/2011 [...]
[2017-05-06 14:30] LABS: ALANINE AMINOTRANSFERASE 28 U/L (0-55); ALBUMIN 4.8 GM/DL (3.2-4.5); ANION GAP 10 MMOL/L (5-14); ASPARTATE AMINO TRANSFERASE 30 U/L (5-34); BILIRUBIN,TOTAL 0.9 MG/DL (0.1-1.0); BLOOD UREA NITROGEN 14 MG/DL (7-18); BUN/CREATININE RATIO 16; CALCIUM 10.4 MG/DL (8.5-10.1); CARBON DIOXIDE 27 MMOL/L (21-32); CHLORIDE 103 MMOL/L (98-107); CREATININE SERUM 0.87 MG/DL (0.60-1.30); GFR ESTIMATED > 60; GLUCOSE 88 MG/DL (70-105); LIPASE 19 U/L (8-78); MAGNESIUM 2.2 MG/DL (1.8-2.4); POTASSIUM 4.2 MMOL/L (3.6-5.0); SODIUM 140 MMOL/L (135-145); TOTAL PROTEIN 8.9 GM/DL (6.4-8.2)
--- OUTSIDE RECORDS SUMMARY | 2017-05-06 14:30 | XMS REPORT ---
Author Author Jessie Mock Organization [facility] Address [address] [place], [place] [id number] Care Team Providers Care Medicare Specialist Name Role Phone Jessie Mock PCP Unavailable Allergies and Adverse Reactions Name Reaction Notes Ceftin rash erythromycin rash PENICILLINS rash Plan of Treatment Planned Activity Comments Planned Date Planned Time Plan/Goal IMMUNOTHERAPY INJECTIONS 04/18/2015 12:00 AM IMMUNOTHERAPY INJECTIONS 03/27/2015 12:00 AM IMMUNOTHERAPY INJECTIONS 07/22/2015 12:00 AM IMMUNOTHERAPY INJECTIONS 11/11/2015 12:00 AM COMPLETE CBC W/AUTO DIFF WBC 04/23/2016 12:00 AM COMPREHEN METABOLIC PANEL 04/23/2016 12:00 AM LIPID PANEL 04/23/2016 12:00 AM ASSAY THYROID STIM HORMONE 04/23/2016 12:00 AM MRI BRAIN STEM W/O & W/DYE 04/23/2016 12:00 AM IMMUNOTHERAPY INJECTIONS 01/05/2012 12:00 [...] oral route once daily in the evening Name Start Date Expiration Date SIG Comments [...] Reviewed 08/21/2011 12:00 AM Depo-Medrol 40 mg [place]#[id number] Reviewed 03/02/2016 12:00 AM IMMUNOTHERAPY INJECTIONS Reviewed 03/06/2016 12:00 AM IMMUNOTHERAPY INJECTIONS Reviewed 03/11/2016 12:00 AM IMMUNOTHERAPY INJECTIONS Reviewed 03/17/2016 12:00 AM IMMUNOTHERAPY INJECTIONS Reviewed 09/08/2011 12:00 AM IMMUNOTHERAPY INJECTIONS Reviewed 03/26/2016 12:00 AM IMMUNOTHERAPY INJECTIONS Reviewed 04/01/2016 12:00 AM IMMUNOTHERAPY INJECTIONS Reviewed 04/07/2016 12:00 AM IMMUNOTHERAPY INJECTIONS Reviewed 04/13/2016 12:00 AM IMMUNOTHERAPY INJECTIONS Reviewed 04/23/2016 12:00 AM IMMUNOTHERAPY INJECTIONS Reviewed 09/24/2011 12:00 [...] Reviewed 11/27/2011 12:00 AM Depo-Medrol 40 mg [place]#[id number] Reviewed 12/01/2011 12:00 AM IMMUNOTHERAPY INJECTIONS Reviewed [...] 12:00 AM Decadron, Per 1 Mg [facility]# [address]-34 Reviewed 02/13/2013 12:00 AM Depo-Medrol, Per 80 Mg [facility]#1071-1049-11 Reviewed 06/05/2013 12:00 AM MAMMOGRAM SCREENING Returned [...] BILI 0.50 mg/dLCALCIUM 10.10 mg/dLeGFR >60 mL/min/1.73 [id number] 10.0 secsINR 1.0 PTT 28.20 secs 08/28/2014 [...] CVX Influenza 06/02/2010 sanofi pasteur PMC Fluzone [id number] Intramuscular Left Deltoid 06/02/2010 02/25/2010 999 Influenza 05/09/2015 sanofi pasteur PMC Fluzone [id number] Intramuscular Left Deltoid 05/09/2015 02/22/2015 141 History [...] unspecified syncope type Apr 23 2016 2:20PM Payers Insurance Name Company Name Plan Name Plan Number Policy Number Policy Group Number Start Date [employer] [facility] [id number] June [facility] Self Insurance Fund *INVALID State Self Insurance [id number] N/A Comp [place] [id number] Wednesday, 2015 History of Encounters Visit Date Visit Type Provider 04/23/2016 Office visit Jessie Mock APRN 04/13/2016 Nurse visit Yvonne Cassidy MD 04/07/2016 Nurse visit Yvonne Cassidy MD 04/01/2016 Office visit Jessie Mock APRN 03/26/2016 Nurse visit Yvonne Cassidy MD 03/17/2016 Nurse visit Yvonne Cassidy MD 03/11/2016 Nurse visit Yvonne Cassidy MD 03/04/2016 Office visit Jessie Mock MILL BEAM FITTER 03/02/2016 Nurse visit Yvonne Cassidy MD 02/19/2016 Nurse visit Yvonne Cassidy MD 02/12/2016 Office visit Jessie Mock APRN 02/03/2016 Nurse visit Yvonne Cassidy MD 01/27/2016 Nurse visit Yvonne Cassidy MD 01/15/2016 Nurse visit Yvonne Cassidy MD 01/08/2016 Office visit Jessie Mock MILL BEAM FITTER 12/25/2015 Nurse visit Yvonne Cassidy MD 12/09/2015 Nurse visit Yvonne Cassidy MD 12/02/2015 Nurse visit Yvonne Cassidy MD 11/29/2015 Nurse visit Donte Hastings MILL BEAM FITTER 11/28/2015 Nurse visit Jessie Mock MILL BEAM FITTER 11/27/2015 Office visit Jessie Mock MILL BEAM FITTER 11/25/2015 Office visit Donte Darling MILL BEAM FITTER 11/18/2015 Nurse visit Donte Gerberran MILL BEAM FITTER 11/11/2015 Nurse visit Jessie Mock MILL BEAM FITTER 11/04/2015 Nurse visit Donte Gerberran MILL BEAM FITTER 10/29/2015 Office visit Jessie Mock MILL BEAM FITTER 10/28/2015 Nurse visit Jessie Mock MILL BEAM FITTER 10/21/2015 Nurse visit Glenn Tejeda MD 10/15/2015 Nurse visit Francisco J Jesus DO 10/09/2015 Nurse visit Glenn Tejeda MD 10/02/2015 Office visit April Atkinson MILL BEAM FITTER 10/01/2015 Nurse visit Jessie Mock MILL BEAM FITTER 09/11/2015 Nurse visit Yvonne Cassidy MD 09/05/2015 [...] Office visit 05/29/2015 Office visit Karolyn Millan MILL BEAM FITTER 05/29/2015 Nurse visit Yvonne Cassidy MD 05/14/2015 Nurse visit Francisco J Jesus DO 05/09/2015 Nurse visit Yvonne Cassidy MD 04/30/2015 Nurse visit Yvonne Cassidy MD 04/23/2015 Nurse visit Yvonne Cassidy MD 04/18/2015 Nurse visit Nidia Darby MILL BEAM FITTER 04/09/2015 Nurse visit Yvonne Cassidy MD 04/01/2015 Nurse visit Yvonne Cassidy MD 03/27/[address] Cody Horvath MD 03/25/2015 [facility] Alexander Park MD 03/19/2015 Nurse visit Yvonne Cassidy MD 03/19/2015 Office visit Nidia Darby MILL BEAM FITTER 03/04/2015 Nurse visit Yvonne Cassidy MD 02/25/2015 [...] Office visit 12/31/2014 Office visit Karolyn Millan MILL BEAM FITTER 12/24/2014 Nurse visit Yvonne Cassidy MD 12/17/2014 Nurse visit Yvonne Cassidy MD 12/13/2014 Nurse visit Yvonne Cassidy MD 11/28/2014 Nurse visit Yvonne Cassidy MD 11/19/2014 Nurse visit Yvonne Cassidy MD 11/12/2014 Nurse visit Yvonne Cassidy MD 11/05/2014 Nurse visit Yvonne Cassidy MD 11/05/2014 [facility] Darin Park MD 10/29/2014 Nurse visit Yvonne Cassidy MD 10/24/2014 Nurse visit Yvonne Cassidy MD 10/15/2014 Nurse visit Yvonne Cassidy MD 10/11/2014 Office visit Karolyn Millan MILL BEAM FITTER 10/09/2014 Nurse visit Yvonne Cassidy MD 10/04/2014 Nurse visit Yvonne Cassidy MD 09/19/2014 Surgery Karolyn Millan MILL BEAM FITTER 09/13/2014 Office visit Yvonne Cassidy MD 09/06/2014 Nurse visit Yvonne Cassidy MD 08/28/2014 [facility] Chauncey Hogan MD 08/28/2014 [facility] Joe Thomas MD 08/23/2014 Nurse visit Yvonne Cassidy MD 08/22/2014 Surgery Joe Thomas MD 08/16/2014 Nurse visit Yvonne Cassidy MD 08/07/2014 Nurse visit Yvonne Cassidy MD 08/01/2014 Nurse visit Jessie Mock MILL BEAM FITTER 07/25/2014 Nurse visit Nidia Darby MILL BEAM FITTER 07/16/2014 Nurse visit Yvonne Cassidy MD 07/09/2014 [...] Cassidy MD 03/20/2014 Nurse visit Jessie Mock MILL BEAM FITTER 03/13/2014 Nurse visit Donte Hastings MILL BEAM FITTER 03/07/2014 Nurse visit Yvonne Cassidy MD 02/27/2014 Nurse visit Jessie Mock MILL BEAM FITTER 02/20/2014 Nurse visit Donte Hastings MILL BEAM FITTER 02/13/2014 Nurse visit Donte Hastings MILL BEAM FITTER 02/13/2014 Procedures Joe Thomas MD 02/07/2014 Office visit Joe Thomas MD 02/06/2014 Nurse visit Yvonne Cassidy MD 01/17/2014 Nurse visit Nidia Darby MILL BEAM FITTER 01/10/2014 Nurse visit Yvonne Cassidy MD 01/02/2014 Nurse visit Yvonne Cassidy MD 12/26/2013 Nurse visit Yvonne Cassidy MD 12/18/2013 Nurse visit Yvonne Cassidy MD 12/12/2013 Nurse visit Yvonne Cassidy MD 12/05/2013 Nurse visit Yvonne Cassidy MD 11/28/2013 Nurse visit Yvonne Cassidy MD 11/21/2013 Nurse visit Yvonne Cassidy MD 11/14/2013 Nurse visit Yvonne Cassidy MD 11/07/2013 Nurse visit Nidia Darby MILL BEAM FITTER 10/31/2013 Nurse visit Nidia Darby MILL BEAM FITTER 10/25/2013 Nurse visit Nidia Darby MILL BEAM FITTER 10/18/2013 Voided Nidia Darby MILL BEAM FITTER 10/10/2013 Voided Yvonne Cassidy MD 10/03/2013 Nurse visit Yvonne Cassidy MD 09/18/2013 Office visit Yvonne Cassidy MD 09/15/2013 Nurse visit Yvonne Cassidy MD 09/08/2013 Office visit Joe Thomas MD 09/05/2013 Nurse visit Yvonne Cassidy MD 08/29/2013 Nurse visit Yvonne Cassidy MD 08/21/2013 Nurse visit Yvonne Cassidy MD 08/18/2013 Office visit Robinson MATTHEWSC 08/14/2013 Nurse visit Yvonne Cassidy MD 08/08/2013 [...] Joe Thomas MD 05/30/2013 Nurse visit Bria Mrat MD 05/23/2013 Nurse visit Bria Mart MD 05/18/2013 Office visit Joe Thomas MD 05/15/2013 Nurse visit Bria Mart MD 05/09/2013 Nurse visit Bria Mart MD 05/01/2013 Nurse visit Bria Mart MD 04/18/2013 Nurse visit Nidia Darby MILL BEAM FITTER 04/04/2013 Nurse visit Nidia Darby MILL BEAM FITTER 03/28/2013 Nurse visit Nidia Darby MILL BEAM FITTER 03/21/2013 Nurse visit Nidia Darby MILL BEAM FITTER 03/13/2013 Nurse visit Nidia Darby MILL BEAM FITTER 03/09/2013 Nurse visit Nidia Darby MILL BEAM FITTER 03/02/2013 Nurse visit Nidia Darby MILL BEAM FITTER 02/21/2013 Nurse visit Nidia Darby MILL BEAM FITTER 02/13/2013 Office visit Nidia Darby MILL BEAM FITTER 02/06/2013 Nurse visit Bria Mart MD 01/31/2013 [...] Mart MD 10/04/2012 Nurse visit Nidia Darby MILL BEAM FITTER 09/27/2012 Nurse visit Bria Mart MD 09/22/2012 Nurse visit Bria Mart MD 09/12/2012 Nurse visit Bria Mart MD 09/05/2012 Nurse visit Francisco J Jesus DO 08/31/2012 Nurse visit Bria Mart MD 08/23/2012 Nurse visit Bria Mart MD 08/16/2012 Nurse visit rBia Mart MD 08/10/2012 Nurse visit Bria Mart MD 08/03/2012 Nurse visit Bria Mart MD 07/26/2012 Nurse visit Bria Mart MD 07/13/2012 Nurse visit Bria Mart MD 07/05/2012 Nurse visit Bria Mart MD 06/21/2012 Nurse visit Bria Mart MD 06/14/2012 Nurse visit Bria Mart MD 06/07/2012 Nurse visit Nidia Darby MILL BEAM [employer]TER 06/07/2012 Voided Francisco J Jesus DO 06/01/2012 Office visit Bria Mart MD 05/24/2012 Nurse visit Bria Mart MD 05/17/2012 Nurse visit Bria Mart MD 05/10/2012 Nurse visit Bria Mart MD 05/03/2012 Nurse visit Bria Mart MD 04/26/2012 Nurse visit Bria Mart MD 04/21/2012 Nurse visit rBia Mart MD 04/12/2012 Nurse visit Bria Mart [...] Mart MD 09/08/2011 Office visit Jessie Mock APRN 09/01/2011 Nurse visit Bria Mart MD 08/21/2011 [...] visit Bria Mart MD 02/25/2011 Office visit Bira Mart MD 12/30/2010 Office visit Bria Mart MD 11/12/2010 Office visit Bria Mart MD 06/03/2010 Office visit Bria Mart MD 05/26/2010 Office visit Bria Mart MD 11/07/2009 Office visit Bria Mart MD 05/29/2009 Office visit Marium GOLDEN
--- OUTSIDE RECORDS SUMMARY | 2017-05-06 14:33 | XMS REPORT ---
Author Author Jessie Mock [facility] Address [address] [place], [place] [id number] Care Team Providers Care Accountant Assistant Name Role Phone Jessie Mock PCP Unavailable [...] TAKE 1 TABLET BY MOUTH ONCE DAILY phentermine 37.5 mg oral tablet 10/29/2015 take 1 tablet (37.5 mg) by oral route once daily before breakfast atenolol 25 mg oral tablet 10/29/2015 01/27/2016 take 1 tablet (25 mg) by oral [...] HC BMI BSA BMI Percentile O2 Sat(%) 11/27/2015 2:47:00 PM 142 mmHg 88 mmHg [...] F 222 lbs 67.5 in 34.2566 kg/m 2.19 m2 Social History Name Description Comments [...] Reviewed 07/07/2011 12:00 AM IMMUNOTHERAPY INJECTIONS Reviewed 11/25/2015 12:00 AM RADEX WRIST COMPLETE MINIMUM 3 VIEWS Returned 11/27/2015 12:00 AM IMMUNOTHERAPY INJECTIONS Reviewed 07/16/2011 12:00 AM IMMUNOTHERAPY INJECTIONS Reviewed 07/16/2011 12:00 AM IMMUNOTHERAPY INJECTIONS Reviewed 07/28/2011 12:00 AM IMMUNOTHERAPY INJECTIONS Reviewed 08/06/2011 12:00 AM THER/PROPH/DIAG INJ SC/IM Reviewed 08/06/2011 12:00 AM IMMUNOTHERAPY INJECTIONS Reviewed 08/12/2011 12:00 AM IMMUNOTHERAPY INJECTIONS Reviewed 08/21/2011 12:00 AM THER/PROPH/DIAG INJ SC/IM Reviewed 08/21/2011 12:00 AM Depo-Medrol 40 mg [facility]#[id number] Reviewed 09/08/2011 12:00 AM IMMUNOTHERAPY INJECTIONS Reviewed [...] Depo-Medrol 40 mg [facility]#[id number] Reviewed 12/01/2011 12:00 AM IMMUNOTHERAPY INJECTIONS Reviewed [...] 1 Mg [facility]# [address]-42 Reviewed 02/13/2013 12:00 AM Depo-Medrol, Per 80 Mg [facility]#5973-4046-37 Reviewed 06/05/2013 12:00 AM MAMMOGRAM SCREENING Returned [...] BILI 0.50 mg/dLCALCIUM 10.10 mg/dLeGFR >60 mL/min/1.73 [id number] 10.0 secsINR 1.0 PTT 28.20 secs 08/28/2014 [...] CVX Influenza 06/02/2010 sanofi pasteur PMC Fluzone [id number] Intramuscular Left Deltoid 06/02/2010 02/25/2010 999 Influenza 05/09/2015 sanofi pasteur PMC Fluzone [id number] Intramuscular Left Deltoid 05/09/2015 02/22/2015 141 History [...] to other allergen Nov 27 2015 3:15PM Payers Insurance Name Company Name Plan Name Plan Number Policy Number Policy Group Number Start Date [facility] [id number] [facility] *INVALID State Self Insurance [id number] N/[place] Comp [place] [id number] Wednesday, 2015 History of Encounters Visit Date Visit Type Provider 11/27/2015 Office visit Jessie Mock [employer]INE[employer] 11/25/2015 Office visit Donte Darling [employer] 11/18/2015 Nurse visit Donte Hastings [employer]INE[employer] 11/11/2015 Nurse visit Jesise Mock ENGINE[employer] 11/04/2015 Nurse visit Donte Hastings ENGINE[employer] 10/29/2015 Office visit Jessie Mock ENGINE[employer] 10/28/2015 Nurse visit Jessie Mock ENGINEER [employer] 10/21/2015 Nurse visit Glenn Tejeda MD 10/15/2015 Nurse visit Francisco J Jesus DO 10/09/2015 Nurse visit Glenn Tejeda MD 10/02/2015 Office visit April Atkinson [employer] 10/01/2015 Nurse visit Jessie Mock ENGINEER [employer] 09/11/2015 Nurse visit Yvonne Cassidy MD 09/05/2015 [...] Office visit 05/29/2015 Office visit Karolyn Millan [employer] 05/29/2015 Nurse visit Yvonne Cassidy MD 05/14/2015 Nurse visit Francisco J Jesus DO 05/09/2015 Nurse visit Yvonne Cassidy MD 04/30/2015 Nurse visit Yvonne Cassidy MD 04/23/2015 Nurse visit Yvonne Cassidy MD 04/18/2015 Nurse visit Nidia Darby [employer]INE[employer] 04/09/2015 Nurse visit Yvonne Cassidy MD 04/01/2015 Nurse visit Yvonne Cassidy MD 03/27/[address] Cody Horvath MD 03/25/2015 [facility] Alexander Park MD 03/19/2015 Nurse visit Yvonne Cassidy MD 03/19/2015 Office visit Nidia Darby [employer]INE[employer] 03/04/2015 Nurse visit Yvonne Cassidy MD 02/25/2015 [...] Office visit 12/31/2014 Office visit Karolyn Millan ENGINEER [employer] 12/24/2014 Nurse visit Yvonne Cassidy MD 12/17/2014 Nurse visit Yvonne Cassidy MD 12/13/2014 Nurse visit Yvonne Cassidy MD 11/28/2014 Nurse visit Yvonne Cassidy MD 11/19/2014 Nurse visit Yvonne Cassidy MD 11/12/2014 Nurse visit Yvonne Cassidy MD 11/05/2014 Nurse visit Yvonne Cassidy MD 11/05/2014 [facility] Darin Park MD 10/29/2014 Nurse visit Yvonne Cassidy MD 10/24/2014 Nurse visit Yvonne Cassidy MD 10/15/2014 Nurse visit Yvonne Cassidy MD 10/11/2014 Office visit Karolyn Millan ENGINE[employer] 10/09/2014 Nurse visit Yvonne Cassidy MD 10/04/2014 Nurse visit Yvonne Cassidy MD 09/19/2014 Surgery Karolyn Millan ENGINEER [employer] 09/13/2014 Office visit Yvonne Cassidy MD 09/06/2014 Nurse visit Yvonne Cassidy MD 08/28/2014 [facility] Chauncey Hogan MD 08/28/2014 [facility] Joe Thomas MD 08/23/2014 Nurse visit Yvonne Cassidy MD 08/22/2014 Surgery Joe Thomas MD 08/16/2014 Nurse visit Yvonne Cassidy MD 08/07/2014 Nurse visit Yvonne Cassidy MD 08/01/2014 Nurse visit Jessie Mock [employer]INE[employer] 07/25/2014 Nurse visit Nidia Darby ENGINE[employer] 07/16/2014 Nurse visit Yvonne Cassidy MD 07/09/2014 [...] Cassidy MD 03/20/2014 Nurse visit Jessie Mock [employer]INE[employer] 03/13/2014 Nurse visit Donte Hastings ENGINEER [employer] 03/07/2014 Nurse visit Yvonne Cassidy MD 02/27/2014 Nurse visit Jessie Mock ENGINEER [employer] 02/20/2014 Nurse visit Donte Hastings ENGINEER [employer]EL 02/13/2014 Nurse visit Donte Hastings ENGINEER [employer]EL 02/13/2014 Procedures Joe Thomas MD 02/07/2014 Office visit Joe Thomas MD 02/06/2014 Nurse visit Yvonne Cassidy MD 01/17/2014 Nurse visit Nidia Darby ENGINE[employer] 01/10/2014 Nurse visit Yvonne Cassidy MD 01/02/2014 Nurse visit Yvonne Cassidy MD 12/26/2013 Nurse visit Yvonne Cassidy MD 12/18/2013 Nurse visit Yvonne Cassidy MD 12/12/2013 Nurse visit Yvonne Cassidy MD 12/05/2013 Nurse visit Yvonne Cassidy MD 11/28/2013 Nurse visit Yvonne Cassidy MD 11/21/2013 Nurse visit Yvonne Cassidy MD 11/14/2013 Nurse visit Yvonne Cassidy MD 11/07/2013 Nurse visit Nidia Darby [employer]INE[employer] 10/31/2013 Nurse visit Nidia Darby ENGINEER [employer]EL 10/25/2013 Nurse visit Nidia Darby ENGINEER [employer] 10/18/2013 Voided Nidia Darby ENGINEER [employer] 10/10/2013 Voided Yvonne Cassidy MD 10/03/2013 Nurse [...] Mart MD 04/18/2013 Nurse visit Nidia Darby ENGINEER [employer] 04/04/2013 Nurse visit Nidia Darby ENGINEER [employer] 03/28/2013 Nurse visit Nidia Darby ENGINEER [employer] 03/21/2013 Nurse visit Nidia Darby ENGINEER [employer] 03/13/2013 Nurse visit Nidia Darby ENGINEER [employer] 03/09/2013 Nurse visit Nidia Darby ENGINEER [employer] 03/02/2013 Nurse visit Nidia Darby ENGINEER [employer] 02/21/2013 Nurse visit Nidia Darby ENGINEER [employer] 02/13/2013 Office visit Nidia Darby ENG[employer]ER [employer] 02/06/2013 Nurse visit Bria Mart MD 01/31/2013 Nurse visit Bria Mart MD 01/24/2013 Nurse visit Bria Mart MD 01/17/2013 Nurse visit Bria Mart MD 01/10/2013 Nurse visit Bria Mart MD 01/02/2013 Nurse visit Bria Mart MD 12/20/2012 Nurse visit Bria Mart MD 12/14/2012 Nurse visit Brai Mart MD 12/06/2012 Nurse visit Bria Mart MD 11/29/2012 Nurse visit Bria Mart MD 11/22/2012 Nurse visit Bria Mart MD 11/15/2012 Nurse visit Bria Mart MD 11/08/2012 Nurse visit Bria Mart MD 11/01/2012 Nurse visit Bria Mart MD 10/25/2012 Nurse visit Bria Mart MD 10/18/2012 Nurse visit Bria Mart MD 10/11/2012 Nurse visit Bria Mart MD 10/04/2012 Nurse visit Nidia Darby [employer] 09/27/2012 Nurse visit Bria Mart MD 09/22/2012 [...] Mart MD 06/07/2012 Nurse visit Nidia Darby [employer] 06/07/2012 Voided Francisco J Jesus DO 06/01/2012 [...] Bria Mart MD 01/26/2012 Nurse visit Bria Mrat MD 01/12/2012 Nurse visit Bria Mart MD [...] Mart MD 09/08/2011 Office visit Jessie Mock ENGINEER [employer]EL 09/01/2011 Nurse visit Bria Mart MD 08/21/2011 [...]
--- OUTSIDE RECORDS SUMMARY | 2017-05-06 14:36 | XMS REPORT ---
Author Author Yvonne Cassidy [facility] Address [address] [place], [place] [id number] Care Team Providers Care Container Packer Operator Name Role Phone Yvonne Cassidy PCP Allergies [...] route once daily for 30 days Qsymia 7.5-46 mg oral capsule, ER multiphase 24 hr 02/13/2016 04/13/2016 take 1 capsule by oral route once daily in the morning for 30 days Name Start Date Expiration [...] Depo-Medrol 40 mg [facility]#[id number] Reviewed 09/08/2011 12:00 AM IMMUNOTHERAPY INJECTIONS Reviewed [...] Depo-Medrol 40 mg [facility]#[id number] Reviewed 12/01/2011 12:00 AM IMMUNOTHERAPY INJECTIONS Reviewed [...] Per 1 Mg [facility]# [address]-72 Reviewed 02/13/2013 12:00 AM Depo-Medrol, Per 80 Mg [facility]#[id number] Reviewed 06/05/2013 12:00 AM MAMMOGRAM SCREENING Returned [...] BILI 0.50 mg/dLCALCIUM 10.10 mg/dLeGFR >60 mL/min/1.73 [id number] 10.0 secsINR 1.0 PTT 28.20 secs 08/28/2014 [...] CVX Influenza 06/02/2010 sanofi pasteur PMC Fluzone [id number] Intramuscular Left Deltoid 06/02/2010 02/25/2010 999 Influenza 05/09/2015 sanofi pasteur PMC Fluzone [id number] Intramuscular Left Deltoid 05/09/2015 02/22/2015 141 History [...] to other allergen Feb 19 2016 4:33PM Payers Insurance Name Company Name Plan Name Plan Number Policy Number Policy Group Number Start Date [employer] [facility] [id number] June [facility] Self Insurance Fund *INVALID State Self Insurance [id number] [place] [id number] Wednesday, 2015 History of Encounters Visit Date Visit Type Provider 02/19/2016 Nurse visit Yvonne Cassidy MD 02/12/2016 Office visit Jessie Mock NEON GLASS BLOWER 02/03/2016 Nurse visit Yvonne Cassidy MD 01/27/2016 Nurse visit Yvonne Cassidy MD 01/15/2016 Nurse visit Yvonne Cassidy MD 01/08/2016 Office visit Jessie Mock [employer] 12/25/2015 Nurse visit Yvonne Cassidy MD 12/09/2015 Nurse visit Yvonne Cassidy MD 12/02/2015 Nurse visit Yvonne Cassidy MD 11/29/2015 Nurse visit Donte Hastings [employer] 11/28/2015 Nurse visit Jessie Mock [employer]OWER 11/27/2015 Office visit Jessie Mock [employer] BLOWER 11/25/2015 Office visit Donte Hastings [employer]ASS BLOWER 11/18/2015 Nurse visit Donte Hastings [employer] GLASS BLOWER 11/11/2015 Nurse visit Jessie Mock NE[employer]ASS BLOWER 11/04/2015 Nurse visit Dotne Hastings NEON GLASS BLOWER 10/29/2015 Office visit Jessie Mock NE[employer] GLASS BLOWER 10/28/2015 Nurse visit Jessie Mock NE[employer] GLASS BLOWER 10/21/2015 Nurse visit Glenn Teejda MD 10/15/2015 Nurse visit Francisco J Jesus DO 10/09/2015 Nurse visit Glenn Tejeda MD 10/02/2015 Office visit April Atkinson [employer] 10/01/2015 Nurse visit Jessie Mock [employer]OWER 09/11/2015 Nurse visit Yvonne Cassidy MD 09/05/2015 [...] Yvonne Cassidy MD 06/04/2015 Nurse visit Yvonne Csasidy MD 05/29/2015 Office visit 05/29/2015 Office visit Karolyn Millan [employer]OWER 05/29/2015 Nurse visit Yvonne Cassidy MD 05/14/2015 Nurse visit Francisco J Jesus DO 05/09/2015 Nurse visit Yvonne Cassidy MD 04/30/2015 Nurse visit Yvonne Cassdiy MD 04/23/2015 Nurse visit Yvonne Cassidy MD 04/18/2015 Nurse visit Nidia Darby [employer]ASS [employer]OWER 04/09/2015 Nurse visit Yvonne Cassidy MD 04/01/2015 Nurse visit Yvonne Cassidy MD 03/27/[address] Cody Horvath MD 03/25/2015 [facility] Alexander Park MD 03/19/2015 Nurse visit Yvonne Cassidy MD 03/19/2015 Office visit Nidia Darby NE[employer]ASS BLOWER 03/04/2015 Nurse visit Yvonne Cassidy MD 02/25/2015 [...] Office visit 12/31/2014 Office visit Karolyn Millan NEON GLASS BLOWER 12/24/2014 Nurse visit Yvonne Cassidy MD 12/17/2014 Nurse visit Yvonne Cassidy MD 12/13/2014 Nurse visit Yvonne Cassidy MD 11/28/2014 Nurse visit Yvonne Cassidy MD 11/19/2014 Nurse visit Yvonne Cassidy MD 11/12/2014 Nurse visit Yvonne Cassidy MD 11/05/2014 Nurse visit Yvonne Cassidy MD 11/05/2014 [facility] Darin Park MD 10/29/2014 Nurse visit Yvonne Cassidy MD 10/24/2014 Nurse visit Yvonne Cassidy MD 10/15/2014 Nurse visit Yvonne Cassidy MD 10/11/2014 Office visit Karolyn Millan [employer]ASS [employer]OWER 10/09/2014 Nurse visit Yvonne Cassidy MD 10/04/2014 Nurse visit Yvonne Cassidy MD 09/19/2014 Surgery Karolyn Millan NE[employer]OWER 09/13/2014 Office visit Yvonne Cassidy MD 09/06/2014 Nurse visit Yvonne Cassidy MD 08/28/2014 [facility] Chauncey Hogan MD 08/28/2014 [facility] Joe Thomas MD 08/23/2014 Nurse visit Yvonne Cassidy MD 08/22/2014 Surgery Joe Thomas MD 08/16/2014 Nurse visit Yvonne Cassidy MD 08/07/2014 Nurse visit Yvonne Cassidy MD 08/01/2014 Nurse visit Jessie Mock [employer] 07/25/2014 Nurse visit Nidia Darby NE[employer] GLASS BLOWER 07/16/2014 Nurse visit Yvonne Cassidy MD 07/09/2014 Nurse visit Yvonne Cassidy MD 07/03/2014 Nurse visit Yvonne Cassidy MD 06/28/2014 Nurse visit Yvonne Cassidy MD 06/20/2014 Nurse visit Yvonne Csasidy MD 06/12/2014 Nurse visit Yvonne Cassidy MD [...] Cassidy MD 03/20/2014 Nurse visit Jessie Mock NE[employer] GLASS BLOWER 03/13/2014 Nurse visit Donte Hastings NEON GLASS BLOWER 03/07/2014 Nurse visit Yvonne Cassidy MD 02/27/2014 Nurse visit Jessie Mock NEON GLASS BLOWER 02/20/2014 Nurse visit Donte Hastings NEON GLASS BLOWER 02/13/2014 Nurse visit Donte Hastings NEON GLASS BLOWER 02/13/2014 Procedures Joe Thomas MD 02/07/2014 Office visit Joe Thomas MD 02/06/2014 Nurse visit Yvonne Cassidy MD 01/17/2014 Nurse visit Nidia Darby NEON GLASS BLOWER 01/10/2014 Nurse visit Yvonne Cassidy MD 01/02/2014 Nurse visit Yvonne Cassidy MD 12/26/2013 Nurse visit Yvonne Cassidy MD 12/18/2013 Nurse visit Yvonne Cassidy MD 12/12/2013 Nurse visit Yvonne Cassidy MD 12/05/2013 Nurse visit Yvonne Cassidy MD 11/28/2013 Nurse visit Yvonne Cassidy MD 11/21/2013 Nurse visit Yvonne Cassidy MD 11/14/2013 Nurse visit Yvonne Cassidy MD 11/07/2013 Nurse visit Nidia Darby NE[employer] GLASS BLOWER 10/31/2013 Nurse visit Nidia Darby NEON GLASS BLOWER 10/25/2013 Nurse visit Nidia Darby NE[employer]ASS BLOWER 10/18/2013 Voided Nidia Darby NE[employer]ASS BLOWER 10/10/2013 Voided Yvonne Cassidy MD 10/03/2013 Nurse visit Yvonne Cassidy MD 09/18/2013 Office visit Yvonne Cassidy MD 09/15/2013 Nurse visit Yvonne Cassidy MD 09/08/2013 Office visit Jeo Thomas MD 09/05/2013 Nurse visit Yvonne Cassidy [...] Mart MD 04/18/2013 Nurse visit Nidia Darby [employer] 04/04/2013 Nurse visit Nidia Darby NE[employer] GLASS BLOWER 03/28/2013 Nurse visit Nidia Darby NE[employer] GLASS BLOWER 03/21/2013 Nurse visit Nidia Darby NE[employer] GLASS BLOWER 03/13/2013 Nurse visit Nidia Darby NEON GLASS BLOWER 03/09/2013 Nurse visit Nidia Darby NEON GLASS BLOWER 03/02/2013 Nurse visit Nidia Darby NEON GLASS BLOWER 02/21/2013 Nurse visit Nidia Darby NEON GLASS BLOWER 02/13/2013 Office visit Nidia Darby NEON GLASS BLOWER 02/06/2013 Nurse visit Bria Mart MD 01/31/2013 [...] Mart MD 10/04/2012 Nurse visit Nidia Darby [employer] 09/27/2012 Nurse visit Bria Mart MD 09/22/2012 [...] Mart MD 06/07/2012 Nurse visit Nidia Darby [employer]OWER 06/07/2012 Voided Francisco J Jesus DO 06/01/2012 [...] Mart MD 09/08/2011 Office visit Jessie Mock [employer]OWER 09/01/2011 Nurse visit Bria Mart MD 08/21/2011 [...]
--- OUTSIDE RECORDS SUMMARY | 2017-05-06 14:39 | XMS REPORT ---
Author Author Yvonne Cassidy Organization [facility] Address [address] [place], [place] [id number] Care Team Providers Care Clinical Informatics Physician Name Role Phone Yvonne Cassidy PCP Yvonne Cassidy PreferredProvider Allergies and Adverse Reactions Name Reaction Notes Ceftin rash erythromycin rash PENICILLINS rash Plan of Treatment Planned Activity Comments Planned Date Planned Time Plan/Goal Allergy Injection Multiple 04/18/2015 12:00 AM Allergy Injection Multiple 03/27/2015 12:00 AM Allergy Injection Multiple 07/22/2015 12:00 AM Allergy Injection Multiple 11/11/2015 12:00 AM Basic metabolic panel 03/01/2017 12:00 AM Complete blood count (CBC) with differential count 03/01/2017 12:00 AM Lipid Blood Profile 03/01/2017 12:00 AM Hemoglobin A1c measurement 03/01/2017 12:00 AM Allergy Injection Multiple 09/30/2012 12:00 [...] days atenolol 25 mg oral tablet 12/17/2016 take 1 tablet (25 mg) by oral [...] daily in the evening for 30 days meloxicam 15 mg oral tablet 02/15/2017 TAKE 1 TABLET BY MOUTH ONCE EVERY DAY furosemide 20 mg oral tablet 03/01/2017 08/28/2017 [...] 30 days Pen Needle 32 gauge x 5/32" [...] HC BMI BSA BMI Percentile O2 Sat(%) 03/01/2017 3:50:00 PM 122 mmHg 96 mmHg 62 bpm 16 rpm 97 F 220.5 lbs 66.5 in 35.06 kg/m2 2.17 m2 97 % 10/06/2016 4:10:00 PM 124 mmHg 74 mmHg 72 bpm 16 rpm 99.3 F 208.25 lbs 66.5 in 33.1085 kg/m 2.1052 m 97 % 06/16/2016 9:14:00 AM 138 mmHg [...] Reviewed 08/21/2011 12:00 AM Depo-Medrol 40 mg [facility]#[id number] Reviewed 03/02/2016 12:00 AM IMMUNOTHERAPY INJECTIONS Reviewed [...] Reviewed 11/27/2011 12:00 AM Depo-Medrol 40 mg [facility]#[id number] Reviewed 12/01/2011 12:00 AM IMMUNOTHERAPY INJECTIONS Reviewed [...] Reviewed 03/15/2017 12:00 AM IMMUNOTHERAPY INJECTIONS Reviewed 04/21/2012 12:00 [...] AM Decadron, Per 1 Mg [facility]# [address]-03 Reviewed 02/13/2013 12:00 AM Depo-Medrol, Per 80 Mg [facility]#3579-9054-09 Reviewed 06/05/2013 12:00 AM MAMMOGRAM SCREENING Reviewed [...] CVX Influenza 06/02/2010 sanofi pasteur PMC Fluzone [id number] Intramuscular Left Deltoid 06/02/2010 02/25/2010 999 Influenza 05/09/2015 sanofi pasteur PMC Fluzone [id number] Intramuscular Left Deltoid 05/09/2015 02/22/2015 141 Pneumococcal 06/29/2016 Uptuu-Hrhbha-Xzxvkpe-Praxis [facility] Prevnar 13 [id number] Intramuscular Right Deltoid 06/29/2016 09/14/2012 133 Zostavax [...] of parathyroid surgery Mar 01 2017 3:51PM Payers Insurance Name Company Name Plan Name Plan Number Policy Number Policy Group Number Start Date [employer] [place] [id number] June [facility] Self Insurance Fund *INVALID State Self Insurance [id number] N/A Comp [place] [id number] Wednesday, 2015 History of Encounters Visit Date Visit Type Provider 03/15/2017 Nurse visit Yvonne Cassidy MD 03/08/2017 [...] Cassidy MD 12/08/2016 Nurse visit Donte Hastings APRN 12/02/2016 [...] Cassidy MD 07/14/2016 Nurse visit Donte Hastings APRN 07/06/2016 Nurse visit Yvonne Cassidy MD 06/29/2016 Nurse visit Yvonne Cassidy MD 06/24/2016 Nurse visit Yvonne Cassidy MD 06/16/2016 Office visit Yvonne Cassidy MD 06/14/2016 [facility] Alexander Park MD 06/09/2016 Nurse visit Yvonne Cassidy MD 06/02/2016 Office visit 06/02/2016 Office visit Karolyn Millan MVA OPERATOR 06/01/2016 Nurse visit Yvonne Cassidy MD 05/27/2016 Nurse visit Yvonne Cassidy MD 05/11/2016 Nurse visit Yvonne Cassidy MD 05/05/2016 Nurse visit Yvonne Cassidy MD 04/29/2016 Nurse visit Yvonne Cassidy MD 04/23/2016 Office visit Jessie Mock MVA OPERATOR 04/13/2016 Nurse visit Yvonne Cassidy MD 04/07/2016 Nurse visit Yvonne Cassidy MD 04/01/2016 Office visit Jessie Mock MVA OPERATOR 03/26/2016 Nurse visit Yvonne Cassidy MD 03/17/2016 Nurse visit Yvonne Cassidy MD 03/11/2016 Nurse visit Yvonne Cassidy MD 03/04/2016 Office visit Jessie Mock MVA OPERATOR 03/02/2016 Nurse visit Yvonne Cassidy MD 02/19/2016 Nurse visit Yvonne Cassidy MD 02/12/2016 Office visit Jessie Mock MVA OPERATOR 02/03/2016 Nurse visit Yvonne Cassidy MD 01/27/2016 Nurse visit Yvonne Cassidy MD 01/15/2016 Nurse visit Yvonne Cassidy MD 01/08/2016 Office visit Jessie Mock MVA OPERATOR 12/25/2015 Nurse visit Yvonne Cassidy MD 12/09/2015 Nurse visit Yvonne Cassidy MD 12/02/2015 Nurse visit Yvonne Cassidy MD 11/29/2015 Nurse visit Donte Hastings MVA OPERATOR 11/28/2015 Nurse visit Jessie Mock MVA OPERATOR 11/27/2015 Office visit Jessie Mock MVA OPERATOR 11/25/2015 Office visit Donte Hastings MVA OPERATOR 11/18/2015 Nurse visit Donte Hastings MVA OPERATOR 11/11/2015 Nurse visit Jessie Mock MVA OPERATOR 11/04/2015 Nurse visit Donte Hastings MVA OPERATOR 10/29/2015 Office visit Jessie Mock MVA OPERATOR 10/28/2015 Nurse visit Jessie Mock MVA OPERATOR 10/21/2015 Nurse visit Glenn Tejeda MD 10/15/2015 Nurse visit Francisco J Jesus DO 10/09/2015 Nurse visit Glenn Tejeda MD 10/02/2015 Office visit April Atkinson MVA OPERATOR 10/01/2015 Nurse visit Jessie Mock MVA OPERATOR 09/11/2015 Nurse visit Yvonne Cassidy MD 09/05/2015 [...] Office visit 05/29/2015 Office visit Karolyn Millan MVA OPERATOR 05/29/2015 Nurse visit Yvonne Cassidy MD 05/14/2015 Nurse visit Francisco J Jesus DO 05/09/2015 Nurse visit Yvonne Cassidy MD 04/30/2015 Nurse visit Yvonne Cassidy MD 04/23/2015 Nurse visit Yvonne Cassidy MD 04/18/2015 Nurse visit Nidia Darby MVA OPERATOR 04/09/2015 Nurse visit Yvonne Cassidy MD 04/01/2015 Nurse visit Yvonne Cassidy MD 03/27/[address] Cody Horvath MD 03/25/2015 [facility] Alexander Park MD 03/19/2015 Nurse visit Yvonne Cassidy MD 03/19/2015 Office visit Nidia Darby MVA OPERATOR 03/04/2015 Nurse visit Yvonne Cassidy MD 02/25/2015 [...] Office visit 12/31/2014 Office visit Karolyn Millan MVA OPERATOR 12/24/2014 Nurse visit Yvonne Cassidy MD 12/17/2014 Nurse visit Yvonne Cassidy MD 12/13/2014 Nurse visit Yvonne Cassidy MD 11/28/2014 Nurse visit Yvonne Cassidy MD 11/19/2014 Nurse visit Yvonne Cassidy MD 11/12/2014 Nurse visit Yvonne Cassidy MD 11/05/2014 Nurse visit Yvonne Cassidy MD 11/05/2014 [facility] Darin Park MD 10/29/2014 Nurse visit Yvonne Cassidy MD 10/24/2014 Nurse visit Yvonne Cassidy MD 10/15/2014 Nurse visit Yvonne Cassidy MD 10/11/2014 Office visit Karolyn Millan MVA OPERATOR 10/09/2014 Nurse visit Yvonne Cassidy MD 10/04/2014 Nurse visit Yvonne Cassidy MD 09/19/2014 Surgery Karolyn Millan MVA OPERATOR 09/13/2014 Office visit Yvonne Cassidy MD 09/06/2014 Nurse visit Yvonne Cassidy MD 08/28/2014 [facility] Chauncey Hogan MD 08/28/2014 [facility] Joe Thomas MD 08/23/2014 Nurse visit Yvonne Cassidy MD 08/22/2014 Surgery Joe Thomas MD 08/16/2014 Nurse visit Yvonne Cassidy MD 08/07/2014 Nurse visit Yvonne Cassidy MD 08/01/2014 Nurse visit Jessie Mock MVA OPERATOR 07/25/2014 Nurse visit Nidia Darby MVA OPERATOR 07/16/2014 Nurse visit Yvonne Cassidy MD 07/09/2014 Nurse visit Yvonne Cassidy MD 07/03/2014 Nurse visit Yvonen Cassidy MD 06/28/2014 Nurse visit Yvonne Cassidy [...] Cassidy MD 03/20/2014 Nurse visit Jessie Mock MVA OPERATOR 03/13/2014 Nurse visit Donte Hastings MVA OPERATOR 03/07/2014 Nurse visit Yvonne Cassidy MD 02/27/2014 Nurse visit Jessie Nish MVA OPERATOR 02/20/2014 Nurse visit Donte Hastings MVA OPERATOR 02/13/2014 Nurse visit Donte Hastings MVA OPERATOR 02/13/2014 Procedures Joe Thomas MD 02/07/2014 Office visit Joe Thomas MD 02/06/2014 Nurse visit Yvonne Cassidy MD 01/17/2014 Nurse visit Nidia Darby MVA OPERATOR 01/10/2014 Nurse visit Yvonne Cassidy MD 01/02/2014 Nurse visit Yvonne Cassidy MD 12/26/2013 Nurse visit Yvonne Cassidy MD 12/18/2013 Nurse visit Yvonne Cassidy MD 12/12/2013 Nurse visit Yvonne Cassidy MD 12/05/2013 Nurse visit Yvonne Cassidy MD 11/28/2013 Nurse visit Yvonne Cassidy MD 11/21/2013 Nurse visit Yvonne Cassidy MD 11/14/2013 Nurse visit Yvonne Cassidy MD 11/07/2013 Nurse visit Nidia Darby MVA OPERATOR 10/31/2013 Nurse visit Nidia Darby MVA OPERATOR 10/25/2013 Nurse visit Nidia Darby MVA OPERATOR 10/18/2013 Voided Nidia Darby MVA OPERATOR 10/10/2013 Voided Yvonne Cassidy MD 10/03/2013 Nurse [...] Mart MD 04/18/2013 Nurse visit Nidia Darby MVA OPERATOR 04/04/2013 Nurse visit Nidia Darby MVA OPERATOR 03/28/2013 Nurse visit Nidia Darby MVA OPERATOR 03/21/2013 Nurse visit Nidia Darby MVA OPERATOR 03/13/2013 Nurse visit Nidia Darby MVA OPERATOR 03/09/2013 Nurse visit Nidia Darby MVA OPERATOR 03/02/2013 Nurse visit Nidia Darby MVA OPERATOR 02/21/2013 Nurse visit Nidia Darby MVA OPERATOR 02/13/2013 Office visit Nidia Darby MVA OPERATOR 02/06/2013 Nurse visit Bria Mart MD 01/31/2013 [...] Mart MD 10/04/2012 Nurse visit Nidia Darby MVA OPERATOR 09/27/2012 Nurse visit Bria Mart MD 09/22/2012 [...] Mart MD 06/07/2012 Nurse visit Nidia Darby MVA OPERATOR 06/07/2012 Voided Francisco J Edin ISSA 06/01/2012 [...] Mart MD 09/08/2011 Office visit Jessie Mock MVA OPERATOR 09/01/2011 Nurse visit Bria Mart MD 08/21/2011 [...]
--- OUTSIDE RECORDS SUMMARY | 2017-05-06 14:42 | XMS REPORT ---
Author Author Yvonne Cassidy Organization [facility] Address [address] [place], [place] [id number] Care Team Providers Care Warehouse Team Leader Name Role Phone Yvonne Cassidy PCP Yvonne [...] TAKE 1 TABLET BY MOUTH EVERY DAY Name Start Date Expiration Date [...] 30 days Pen Needle 32 gauge x " [...] 12:00 AM Depo-Medrol 40 mg [facility]#[id number] Reviewed 03/02/2016 12:00 AM IMMUNOTHERAPY INJECTIONS Reviewed [...] 12:00 AM Depo-Medrol 40 mg [facility]#[id number] Reviewed 12/01/2011 12:00 AM IMMUNOTHERAPY INJECTIONS Reviewed [...] Reviewed 01/05/2017 12:00 AM IMMUNOTHERAPY INJECTIONS Reviewed 03/01/2012 12:00 [...] Per 1 Mg [facility]# [address]-32 Reviewed 02/13/2013 12:00 AM Depo-Medrol, Per 80 Mg [facility]#2265-8344-04 Reviewed 06/05/2013 12:00 AM MAMMOGRAM SCREENING Reviewed [...] CVX Influenza 06/02/2010 sanofi pasteur PMC Fluzone [id number] Intramuscular Left Deltoid 06/02/2010 02/25/2010 999 Influenza 05/09/2015 sanofi pasteur PMC Fluzone [id number] Intramuscular Left Deltoid 05/09/2015 02/22/2015 141 Pneumococcal 06/29/2016 Qrebb-Oefidi-Mrbezfw-Pratyesha [facility] Prevnar 13 [id number] Intramuscular Right Deltoid 06/29/2016 09/14/2012 133 Zostavax [...] to other allergen Jan 05 2017 4:05PM Payers Insurance Name Company Name Plan Name Plan Number Policy Number Policy Group Number [id number] June [facility] Self Insurance Fund *INVALID State Self Insurance [id number] N/A Comp [place] [id number] Wednesday, 2015 History of Encounters Visit Date Visit Type Provider 01/05/2017 Nurse visit Yvonne Cassidy MD 12/30/2016 Nurse visit Yvonne Cassidy MD 12/22/2016 Nurse visit Yvonne Cassidy MD 12/08/2016 Nurse visit Donte Hastings MERCHANDISING LEAD 12/02/2016 Nurse visit Yvonne Cassidy MD 11/16/2016 Nurse visit Yvonne Cassidy MD 11/10/2016 Nurse visit Yvonne Cassidy MD 11/02/2016 Nurse visit Donte Hastings MERCHANDISING LEAD 10/28/2016 Nurse visit Yvonne Cassidy MD 10/06/2016 [...] Cassidy MD 07/14/2016 Nurse visit Donte Hastings MERCHANDISING LEAD 07/06/2016 Nurse visit Yvonne Cassidy MD 06/29/2016 Nurse visit Yvonne Cassidy MD 06/24/2016 Nurse visit Yvonne Cassidy MD 06/16/2016 Office visit Yvonne Cassidy MD 06/14/2016 [facility] Alexander Park MD 06/09/2016 Nurse visit Yvonne Cassidy MD 06/02/2016 Office visit 06/02/2016 Office visit Karolyn Millan MERCHANDISING LEAD 06/01/2016 Nurse visit Yvonne Cassidy MD 05/27/2016 Nurse visit Yvonne Cassidy MD 05/11/2016 Nurse visit Yvonne Cassidy MD 05/05/2016 Nurse visit Yvonne Cassidy MD 04/29/2016 Nurse visit Yvonne Cassidy MD 04/23/2016 Office visit Jessie Mock MERCHANDISING LEAD 04/13/2016 Nurse visit Yvonne Cassidy MD 04/07/2016 Nurse visit Yvonne Cassidy MD 04/01/2016 Office visit Jessie Mock MERCHANDISING LEAD 03/26/2016 Nurse visit Yvonne Cassidy MD 03/17/2016 Nurse visit Yvonne Cassidy MD 03/11/2016 Nurse visit Yvonne Cassidy MD 03/04/2016 Office visit Jessie Mock MERCHANDISING LEAD 03/02/2016 Nurse visit Yvonne Cassidy MD 02/19/2016 Nurse visit Yvonne Cassidy MD 02/12/2016 Office visit Jessie Mock MERCHANDISING LEAD 02/03/2016 Nurse visit Yvonne Cassidy MD 01/27/2016 Nurse visit Yvonne Cassidy MD 01/15/2016 Nurse visit Yvonne Cassidy MD 01/08/2016 Office visit Jessie Mock MERCHANDISING LEAD 12/25/2015 Nurse visit Yvonne Cassidy MD 12/09/2015 Nurse visit Yvonne Cassidy MD 12/02/2015 Nurse visit Yvonne Cassidy MD 11/29/2015 Nurse visit Donte Hastings MERCHANDISING LEAD 11/28/2015 Nurse visit Jessie Nish MERCHANDISING LEAD 11/27/2015 Office visit Jessie Nish MERCHANDISING LEAD 11/25/2015 Office visit Donte Hastings MERCHANDISING LEAD 11/18/2015 Nurse visit Donte Hastings MERCHANDISING LEAD 11/11/2015 Nurse visit Jessie Mock MERCHANDISING LEAD 11/04/2015 Nurse visit Donte Hastings MERCHANDISING LEAD 10/29/2015 Office visit Jessie Nish MERCHANDISING LEAD 10/28/2015 Nurse visit Jessie Mock MERCHANDISING LEAD 10/21/2015 Nurse visit Glenn Tejeda MD 10/15/2015 Nurse visit Francisco J Jesus DO 10/09/2015 Nurse visit Glenn Tejeda MD 10/02/2015 Office visit April Atkinson MERCHANDISING LEAD 10/01/2015 Nurse visit Jessie Mock MERCHANDISING LEAD 09/11/2015 Nurse visit Yvonne Cassidy MD 09/05/2015 [...] Office visit 05/29/2015 Office visit Karolyn Millan MERCHANDISING LEAD 05/29/2015 Nurse visit Yvonne Cassidy MD 05/14/2015 Nurse visit Francisco J Jesus DO 05/09/2015 Nurse visit Yvonne Cassidy MD 04/30/2015 Nurse visit Yvonne Cassidy MD 04/23/2015 Nurse visit Yvonne Cassidy MD 04/18/2015 Nurse visit Nidia Darby MERCHANDISING LEAD 04/09/2015 Nurse visit Yvonne Cassidy MD 04/01/2015 Nurse visit Yvonne Cassidy MD 03/27/[address] Cody Horvath MD 03/25/2015 [facility] Darin Park MD 03/19/2015 Nurse visit Yvonne Cassidy MD 03/19/2015 Office visit Nidia Darby MERCHANDISING LEAD 03/04/2015 Nurse visit Yvonne Cassidy MD 02/25/2015 [...] Office visit 12/31/2014 Office visit Karolyn Millan MERCHANDISING LEAD 12/24/2014 Nurse visit Yvonne Cassidy MD 12/17/2014 Nurse visit Yvonne Cassidy MD 12/13/2014 Nurse visit Yvonne Cassidy MD 11/28/2014 Nurse visit Yvonne Cassidy MD 11/19/2014 Nurse visit Yvonne Cassidy MD 11/12/2014 Nurse visit Yvonne Cassidy MD 11/05/2014 Nurse visit Yvonne Cassidy MD 11/05/2014 [facility] Darin Park MD 10/29/2014 Nurse visit Yvonne Cassidy MD 10/24/2014 Nurse visit Yvonne Cassidy MD 10/15/2014 Nurse visit Yvonne Cassidy MD 10/11/2014 Office visit Karolyn Millan MERCHANDISING LEAD 10/09/2014 Nurse visit Yvonne Cassidy MD 10/04/2014 Nurse visit Yvonne Cassidy MD 09/19/2014 Surgery Karolyn Millan MERCHANDISING LEAD 09/13/2014 Office visit Yvonne Cassidy MD 09/06/2014 Nurse visit Yvonne Cassidy MD 08/28/2014 [facility] Chauncey Hogan MD 08/28/2014 [facility] Joe Thomas MD 08/23/2014 Nurse visit Yvonne Cassidy MD 08/22/2014 Surgery Joe Thomas MD 08/16/2014 Nurse visit Yvonne Cassidy MD 08/07/2014 Nurse visit Yvonne Cassidy MD 08/01/2014 Nurse visit Jessie Mock MERCHANDISING LEAD 07/25/2014 Nurse visit Nidia Darby MERCHANDISING LEAD 07/16/2014 Nurse visit Yvonne Cassidy MD 07/09/2014 Nurse visit Yvonne Cassdiy MD 07/03/2014 Nurse visit Yvonne Cassidy MD [...] Cassidy MD 03/20/2014 Nurse visit Jessie Mock MERCHANDISING LEAD 03/13/2014 Nurse visit Donte Hastings MERCHANDISING LEAD 03/07/2014 Nurse visit Yvonne Cassidy MD 02/27/2014 Nurse visit Jessie Mock MERCHANDISING LEAD 02/20/2014 Nurse visit Donte Hastings MERCHANDISING LEAD 02/13/2014 Nurse visit Donte Hastings MERCHANDISING LEAD 02/13/2014 Procedures Joe Thomas MD 02/07/2014 Office visit Joe Thomas MD 02/06/2014 Nurse visit Yvonne Cassidy MD 01/17/2014 Nurse visit Nidia Darby MERCHANDISING LEAD 01/10/2014 Nurse visit Yvonne Cassidy MD 01/02/2014 Nurse visit Yvonne Cassidy MD 12/26/2013 Nurse visit Yvonne Cassidy MD 12/18/2013 Nurse visit Yvonne Cassidy MD 12/12/2013 Nurse visit Yvonne Cassidy MD 12/05/2013 Nurse visit Yvonne Cassidy MD 11/28/2013 Nurse visit Yvonne Cassidy MD 11/21/2013 Nurse visit Yvonne Cassidy MD 11/14/2013 Nurse visit Yvonne Cassidy MD 11/07/2013 Nurse visit Nidia Darby MERCHANDISING LEAD 10/31/2013 Nurse visit Nidia Darby MERCHANDISING LEAD 10/25/2013 Nurse visit Nidia Darby MERCHANDISING LEAD 10/18/2013 Voided Nidia Darby MERCHANDISING LEAD 10/10/2013 Voided Yvonne Cassidy MD 10/03/2013 Nurse [...] Mart MD 04/18/2013 Nurse visit Nidia Darby MERCHANDISING LEAD 04/04/2013 Nurse visit Nidia Darby MERCHANDISING LEAD 03/28/2013 Nurse visit Nidia Darby MERCHANDISING LEAD 03/21/2013 Nurse visit Nidia Darby MERCHANDISING LEAD 03/13/2013 Nurse visit Nidia Darby MERCHANDISING LEAD 03/09/2013 Nurse visit Nidia Darby MERCHANDISING LEAD 03/02/2013 Nurse visit Nidia Darby MERCHANDISING LEAD 02/21/2013 Nurse visit Niida Darby MERCHANDISING LEAD 02/13/2013 Office visit Nidia GonzalesZafar Wilner MERCHANDISING LEAD 02/06/2013 Nurse visit Bria Mart MD 01/31/2013 [...] Bria Mart MD 10/04/2012 Nurse visit Nidia Sheridan Darby MERCHANDISING LEAD 09/27/2012 Nurse visit Bria Mart MD 09/22/2012 Nurse visit Bria Mart MD 09/12/2012 Nurse visit Bria Mart MD 09/05/2012 Nurse visit Francisco J Jesus 08/31/2012 Nurse visit Bria Mart MD 08/23/2012 [...] Mart MD 06/07/2012 Nurse visit Nidia Darby MERCHANDISING LEAD 06/07/2012 Voided Francisco J Jesus 06/01/2012 Office [...] Mart MD 09/08/2011 Office visit Jessie Mock MERCHANDISING LEAD 09/01/2011 Nurse visit Bria Mart MD 08/21/2011 [...]
--- OUTSIDE RECORDS SUMMARY | 2017-05-06 14:44 | XMS REPORT ---
Author Author Yvonne Cassidy Organization [facility] Address [address] [place], [place] [address] Care Team Providers Care Nuclear Pharmacist Name Role Phone Yvonne Cassidy PCP Allergies and Adverse Reactions Name Reaction Notes Ceftin rash Erythromycin rash PENICILLINS rash Plan of Treatment Not available. Medications Active Name Start Date Estimated Completion [...] oral route once daily for 90 days hydrochlorothiazide oral capsule 12.5 mg 09/19/2014 01/17/2015 take 1 capsule ( 12.5 mg) by oral route once daily for 30 days triamcinolone acetonide nasal aerosol,spray 55 mcg 11/14/2014 USE 1-2 SPRAYS BY NASAL ROUTE DAILY for 30 days triamcinolone acetonide nasal aerosol,spray 55 mcg 11/14/2014 USE 1-2 SPRAYS BY NASAL ROUTE DAILY for 30 days Name Start Date Expiration [...] BY NASAL ROUTE DAILY for 30 days Neoprene 1 ankle brace [...] D deficiency Active Hypothyroidism Active 05/18/2013 Stress Incontinence, Female Active 05/18/2013 Urge incontinence Active 05/18/2013 Vital Signs Date Time BP-Sys(mm[Hg] BP-Karina(mm[Hg]) HR(bpm) RR(rpm) Temp WT HT HC BMI BSA BMI Percentile O2 Sat(%) 10/11/2014 3:45:00 PM 132 mmHg 77 mmHg [...] 12/30/2010 12:00 AM THER/PROPH/DIAG INJ SC/IM Reviewed Results Summary Data and Description Results [...] BILI 0.50 mg/dLCALCIUM 10.10 mg/dLeGFR >60 mL/min/1.73 [id number] 10.0 secsINR 1.0 PTT 28.20 secs 08/28/2014 [...] CVX Influenza 06/02/2010 sanofi pasteur PMC Fluzone [id number] Intramuscular Left Deltoid 06/02/2010 02/25/2010 999 History of Past Illness Name Date of Onset Comments Asthma Hypertension hypothyroid Headache Migraine Kidney Stones Routine gynecological examination Nov 07 2009 3:01PM Hypertension Nov 07 2009 3:01PM Hypothyroidism, Acquired Nov 07 2009 3:01PM Depressive Disorder Nov 07 2009 3:01PM Vaginal Discharge Nov 07 2009 3:01PM Vitamin D deficiency Hypothyroidism 05/18/2013 Stress Incontinence, Female 05/18/2013 Urge incontinence 05/18/2013 Essential Hypertension May 26 2010 3:31PM Hypothyroidism, Acquired May 26 2010 3:31PM Screening Examination for Breast Cancer May 26 2010 3:31PM Essential Hypertension Jun 03 2010 11:02AM Hypothyroidism, Acquired Jun 03 2010 11:02AM Screening Examination for Breast Cancer Jun 03 2010 11:02AM Rash Of Skin Jun 03 2010 11:02AM Routine gynecological examination Nov 12 2010 3:35PM [...] to other allergen Nov 19 2014 5:13PM Payers Insurance Name Company Name Plan Name Plan Number Policy Number Policy Group Number Start Date [facility] [id number] [place] Self Insurance Fund [facility] Self Insurance Fund [id number] N/A History of Encounters Visit Date Visit Type Provider 11/19/2014 Nurse visit Yvonne Cassidy MD 11/12/2014 Nurse visit Yvonne Cassidy MD 11/05/2014 Nurse visit Yvonne Cassidy MD 10/29/2014 Nurse visit Yvonne Cassidy MD 10/24/2014 Nurse visit Yvonne Cassidy MD 10/15/2014 Nurse visit Yvonne Cassidy MD 10/11/2014 Office visit Karolyn Millan UPPER SHAPER 10/09/2014 Nurse visit Yvonne Cassidy MD 10/04/2014 Nurse visit Yvonne Cassidy MD 09/19/2014 Surgery Karolyn Millan UPPER SHAPER 09/13/2014 Office visit Yvonne Cassidy MD 09/06/2014 Nurse visit Yvonne Cassidy MD 08/28/2014 Hospital Joe Thomas MD 08/28/2014 Hospital Chauncey Hogan MD 08/23/2014 Nurse visit Yvonne Cassidy MD 08/22/2014 Surgery Joe Thomas MD 08/16/2014 Nurse visit Yvonne Cassidy MD 08/07/2014 Nurse visit Yvonne Cassidy MD 08/01/2014 Nurse visit Jessie Mock UPPER SHAPER 07/25/2014 Nurse visit Nidia Darby UPPER SHAPER 07/16/2014 Nurse visit Yvonne Cassidy MD 07/09/2014 [...] Cassidy MD 03/20/2014 Nurse visit Jessie Mock UPPER SHAPER 03/13/2014 Nurse visit Donte Hastings UPPER SHAPER 03/07/2014 Nurse visit Yvonne Cassidy MD 02/27/2014 Nurse visit Jessie Mock UPPER SHAPER 02/20/2014 Nurse visit Donte Hastings UPPER SHAPER 02/13/2014 Procedures Joe Thomas MD 02/13/2014 Nurse visit Donte Hastings UPPER SHAPER 02/07/2014 Office visit Joe Thomas MD 02/06/2014 Nurse visit Yvonne Cassidy MD 01/17/2014 Nurse visit Nidia Darby UPPER SHAPER 01/10/2014 Nurse visit Yvonne Cassidy MD 01/02/2014 Nurse visit Yvonne Cassidy MD 12/26/2013 Nurse visit Yvonne Cassidy MD 12/18/2013 Nurse visit Yvonne Cassidy MD 12/12/2013 Nurse visit Yvonne Cassidy MD 12/05/2013 Nurse visit Yvonne Cassidy MD 11/28/2013 Nurse visit Yvonne Cassidy MD 11/21/2013 Nurse visit Yvonne Cassidy MD 11/14/2013 Nurse visit Yvonne Cassidy MD 11/07/2013 Nurse visit Nidia Darby UPPER SHAPER 10/31/2013 Nurse visit Nidia Darby UPPER SHAPER 10/25/2013 Nurse visit Nidia Darby UPPER SHAPER 10/18/2013 Voided Nidia Darby UPPER SHAPER 10/10/2013 Voided Yvonne Cassidy MD 10/03/2013 Nurse [...] Mart MD 04/18/2013 Nurse visit Nidia Darby UPPER SHAPER 04/04/2013 Nurse visit Nidia Darby UPPER SHAPER 03/28/2013 Nurse visit Nidia Darby UPPER SHAPER 03/21/2013 Nurse visit Nidia Darby UPPER SHAPER 03/13/2013 Nurse visit Nidia Darby UPPER SHAPER 03/09/2013 Nurse visit Nidia Darby UPPER SHAPER 03/02/2013 Nurse visit Nidia Darby UPPER SHAPER 02/21/2013 Nurse visit Nidia Darby UPPER SHAPER 02/13/2013 Office visit Nidia Swartz Wilner UPPER SHAPER 02/06/2013 Nurse visit Bria Mart MD 01/31/2013 [...] Bria Mart MD 10/18/2012 Nurse visit Bria Matr MD 10/11/2012 Nurse visit Bria Mart MD 10/04/2012 Nurse visit Nidia Sheridan Darby UPPER SHAPER 09/27/2012 Nurse visit Bria Mart MD 09/22/2012 [...] Mart MD 06/07/2012 Voided Francisco J Jesus 06/07/2012 Nurse visit Nidia GonzalesZafar Darby UPPER SHAPER 06/01/2012 Office visit Bria Mart MD 05/24/2012 [...] Bria Mart MD 12/22/2011 Nurse visit Bria Mrat MD 12/18/2011 Nurse visit Bria Mart MD [...] Mart MD 09/08/2011 Office visit Jessie Mock UPPER SHAPER 09/08/2011 Nurse visit Bria Mart MD 09/01/2011 [...] Bria Mart MD 04/15/2011 Nurse visit Bria aMrt MD 04/08/2011 Nurse visit Bria Mart MD [...]
--- NOTE | 2017-05-06 14:48 | ED Chest Pain ---
General Chief Complaint: Chest Pain Stated Complaint: CP Nursing Triage Note: PT STATES CHEST PAIN THAT STARTED WEDNESDAY NIGHT, MID CHEST INTO NECK. Nursing Sepsis Screen: No Definite Risk History of Present Illness Time seen by provider: 14:05 Initial Comments Patient reports she's been having mid sternal chest pressure since the evening of 04/26/17. She was evaluated that afternoon by her primary care physician in [place], [place]. She has a strong family history of cardiovascular disease. She' s been told of hyperlipidemia, but she has not taken it occasions in the past. She attempted lifestyle but with no change in her labs she was prescribed medication, but she has not been taking, she did begin taking the statin on 04/26. Her antihypertensive agent was recently changed to Toprol. She's had minimal cardiac workup in the past, she does report approximately 10 years ago having gallbladder surgery and made an echo and stress test. She's had 2 episodes of tachycardia, she was given medication and this improved. One episode occurred in mid March of this year, she was treated at [facility]. She had a full workup, magnesium was slightly low and she was given supplementation. Her thyroid labs were all normal. She took an aspirin 325 mg at 11:00 today. She is not on nitroglycerin and she does not normally take aspirin. She does report that she has been under more stress lately. Her primary care provider started her on Xanax, however she has not taken anything to this point. She didn't fill the prescription. 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 NTG SL MIXER FOAM RUBBER: No Associated Symptoms: No abdominal pain, No back pain, No diaphoresis, No dizziness, No edema, No fatigue, No fever/chills, headache, No heartburn, nausea /vomiting (no vomiting just nausea), No rash, No shortness of breath, No swelling/lump in chest, No syncope, No weakness Allergies and Home Medications Allergies Coded Allergies: erythromycin base (Verified Allergy, Unknown, 05/06/17) Review of Systems Constitutional: no symptoms reported, see HPI Cardiovascular: See HPI, Chest Pain All Other Systems Reviewed Negative Unless Noted: Yes Past Xbkfoix-Hzyclm-Wlxcvi Hx Patient Social History Recent Foreign Travel: No Contact w/Someone Who Travel: No Recent Infectious Disease Expo: No 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 History: Hysterectomy Reviewed Nursing Assessment Reviewed/Agree w Nursing PMH: Yes Physical Exam Vital Signs Vital Sign - Last 12Hours 05/06/17 14:00 Temp 97.9 Pulse 85 Resp 14 B/P (MAP) 193/109 Pulse Ox 97 O2 Delivery Room Air Capillary Refill : Less Than 3 Seconds General Appearance: No Apparent Distress, WD/WN Cardiovascular: Regular Rate, Rhythm, No Edema, No Murmur, Normal Peripheral Pulses Gastrointestinal: Normal Bowel Sounds, No Organomegaly, No Pulsatile Mass, Non Tender, Soft Progress/Results/Core Measures Results/Orders Lab Results Laboratory Tests Test 05/06/17 13:50 Range/Units White Blood Count 8.7 4.3-11.0 10^3/uL Red Blood Count 4.93 4.35-5.85 10^6/uL Hemoglobin 15.7 11.5-16.0 G/DL Hematocrit 46 35-52 % Mean Corpuscular Volume 92 80-99 FL Mean Corpuscular Hemoglobin 32 25-34 PG Mean Corpuscular Hemoglobin Concent 35 32-36 G/DL Red Cell Distribution Width 12.7 10.0-14.5 % Platelet Count 253 130-400 10^3/uL Mean Platelet Volume 11.1 H 7.4-10.4 FL Neutrophils (%) (Auto) 66 42-75 % Lymphocytes (%) (Auto) 21 12-44 % Monocytes (%) (Auto) 10 0-12 % Eosinophils (%) (Auto) 3 0-10 % Basophils (%) (Auto) 1 0-10 % Neutrophils # (Auto) 5.7 1.8-7.8 X 10^3 Lymphocytes # (Auto) 1.8 1.0-4.0 X 10^3 Monocytes # (Auto) 0.8 0.0-1.0 X 10^3 Eosinophils # (Auto) 0.2 0.0-0.3 10^3/uL Basophils # (Auto) 0.1 0.0-0.1 10^3/uL Prothrombin Time 13.1 12.2-14.7 SEC INR Comment 1.0 0.8-1.4 Activated Partial Thromboplast Time 34 24-35 SEC D-Dimer < 0.27 0.00-0.49 UG/ML Urine Color YELLOW Urine Clarity CLEAR Urine pH 5 5-9 Urine Specific Mica 1.010 L 1.016-1.022 Urine Protein NEGATIVE NEGATIVE Urine Glucose (UA) NEGATIVE NEGATIVE Urine Ketones NEGATIVE NEGATIVE Urine Nitrite NEGATIVE NEGATIVE Urine Bilirubin NEGATIVE NEGATIVE Urine Urobilinogen NORMAL NORMAL MG/DL Urine Leukocyte Esterase 1+ H NEGATIVE Urine RBC (Auto) 1+ H NEGATIVE Urine RBC RARE /HPF Urine WBC 0-2 /HPF Urine Squamous Epithelial Cells 2-5 /HPF Urine Crystals NONE /LPF Urine Bacteria NEGATIVE /HPF Urine Casts NONE /LPF Urine Mucus NEGATIVE /LPF Urine Culture Indicated NO Sodium Level 140 135-145 MMOL/L Potassium Level 4.2 3.6-5.0 MMOL/L Chloride Level 103 98-107 MMOL/L Carbon Dioxide Level 27 21-32 MMOL/L Anion Gap 10 5-14 MMOL/L Blood Urea Nitrogen 14 7-18 MG/DL Creatinine 0.87 0.60-1.30 MG/DL Estimat Glomerular Filtration Rate > 60 BUN/Creatinine Ratio 16 Glucose Level 88 70-105 MG/DL Calcium Level 10.4 H 8.5-10.1 MG/DL Magnesium Level 2.2 1.8-2.4 MG/DL Total Bilirubin 0.9 0.1-1.0 MG/DL Aspartate Amino Transf (AST/SGOT) 30 5-34 U/L Alanine Aminotransferase (ALT/SGPT) 28 0-55 U/L Alkaline Phosphatase 106 40-136 U/L Myoglobin 63.0 10.0-92.0 NG/ML Troponin I < 0.30 <0.30 NG/ML Total Protein 8.9 H 6.4-8.2 GM/DL Albumin 4.8 H 3.2-4.5 GM/DL Lipase 19 8-78 U/L My Orders Orders - ADAIR CABRALES Morphine Injection (Morphine Injection (05/06/17 14:14) Lidocaine 2% Viscous 15 Ml (Xylocaine Vi (05/06/17 15:15) Antacid Suspension (Mylanta Suspension (05/06/17 15:15) Ua Culture If Indicated (05/06/17 15:19) Alprazolam Tablet (Xanax Tablet) (05/06/17 16:45) Medications Given in ED Current Medications Medications Dose Ordered Sig/Aretha Route Start Time Stop Time Status Last Admin Dose Admin Al Hydrox/Mg Hydrox/Simethicone 30 ml ONCE ONCE PO 05/06/17 15:15 05/06/17 15:16 DC 05/06/17 15:22 30 ML Alprazolam 0.25 mg ONCE ONCE PO 05/06/17 16:45 05/06/17 16:46 DC 05/06/17 16:50 0.25 MG Lidocaine HCl 15 ml ONCE ONCE PO 05/06/17 15:15 05/06/17 15:16 DC 05/06/17 15:22 15 ML Vital Signs/I&O Vital Sign - Last 12Hours 05/06/17 05/06/17 05/06/17 14:00 14:43 16:54 Temp 97.9 97.9 97.9 Pulse 85 72 Resp 14 20 B/P (MAP) 193/109 Pulse Ox 97 98 O2 Delivery Room Air Room Air Blood Pressure Mean: 137 Progress Note : Time: 14:05 Progress Note Initial evaluation completed, cardiac workup initiated. Will reevaluate as has become available. Morphine 3 mg IV for pain. 1445 all labs essentially negative. 1515 patient reports minimal improvement in her pain after the morphine. We'll try a GI cocktail and reevaluate. 1540 patient reports mild improvement in mid sternal chest pressure after having the GI cocktail. Will continue to reevaluate. 1600 patient states trace improvement in her symptoms requesting drink and crackers. 7-Up and saltines provided. 1615 patient reports pressure has improved she is no longer having any chest pain at this time. She does report that her anxiety has been worse lately that she does not like to discuss this. She is willing to try Xanax at this time. 1630 patient reports be feeling much better, she understands the risk and needs to return to the emergency department if her symptoms continue. She'll follow up with her primary care provider and obtain a referral to cardiology. ECG Initial ECG Impression Date: May 06, 2017 Initial ECG Impression Time: 13:42 Initial ECG Rate: 73 Initial ECG Rhythm: Normal Sinus, PVC Initial ECG Intervals: Normal Initial ECG Intervals ND 132, QRS D1 100, QT 372, QTC 410. [place] P0 QRS 59, T 26. Initial ECG Impression: Normal Initial ECG Comparisson: No Previous ECG Available Comment Reviewed the EKG with Dr. Sandhu, concurred with the interpretation. Diagnostic Imaging Diagonstic Imaging: Xray Plain Films/CT/US/NM/MRI: chest Comments NAME: [facility] REC#: [id number] PT STATUS: REG ER : 1960 PHYSICIAN: RHIANNON AJ MD ADMIT DATE: 05/06/17/ER Draft Date of Exam:05/06/17 CHEST 1 VIEW, AP/PA ONLY INDICATION: Chest pain. COMPARISON: None. FINDINGS: Single frontal view of the chest is obtained. Heart size is normal. The pulmonary vessels appear unremarkable. There is no pneumothorax, mediastinal widening or pleural fluid demonstrated. The lungs are clear. IMPRESSION: Negative chest. Dictated on workstation # [id number] Dict: 05/06/17 1446 Trans: 05/06/17 1459 [facility] [id number] Interpreted by: STEWART ROSALES DO Electronically signed by: Departure Impression Impression: Primary Impression: Chest pain Qualified Codes: R07.89 - Other chest pain Additional Impression: GERD (gastroesophageal reflux disease) Qualified Codes: K21.9 - Gastro-esophageal reflux disease without esophagitis Disposition: HOME, SELF-CARE Condition: Stable Departure-Patient Inst. Decision time for Depature: 16:00 Referrals: NO,LOCAL PHYSICIAN (PCP/Family) Primary Care Physician Patient Instructions: Chest Pain That Is Not Caused by the Heart (DC) Add. Discharge Instructions: Taking enteric-coated aspirin 81 mg 1 daily. Follow-up with primary care provider in [place]. Continue to take antihypertensives and cholesterol medications as prescribed. Call 911 or report to emergency department immediately for chest pain, difficulty breathing, or new problems. Establish care with cariology: Nicola Rivera or Tran. All discharge instructions reviewed with patient and/or family. Voiced understanding. ADAIR CABRALES May 06, 2017 14:48
--- OUTSIDE RECORDS SUMMARY | 2017-05-06 14:48 | XMS REPORT ---
Author Author Jessie Mock [facility] Address [address] [place], [place] [id number] Care Team Providers Care Rn Residential Name Role Phone Jessie Mock PCP Unavailable [...] by oral route daily for 30 days Name Start Date [...] 08/21/2011 12:00 AM Depo-Medrol 40 mg [facility]#[id number] Reviewed 03/02/2016 12:00 AM IMMUNOTHERAPY INJECTIONS Reviewed [...] 11/27/2011 12:00 AM Depo-Medrol 40 mg [facility]#[id number] Reviewed 12/01/2011 12:00 AM IMMUNOTHERAPY INJECTIONS Reviewed [...] 12:00 AM Decadron, Per 1 Mg [facility]# [id number] Reviewed 02/13/2013 12:00 AM Depo-Medrol, Per 80 Mg [facility]#[id number] Reviewed 06/05/2013 12:00 AM MAMMOGRAM SCREENING Reviewed [...] CVX Influenza 06/02/2010 sanofi pasteur PMC Fluzone [id number] Intramuscular Left Deltoid 06/02/2010 02/25/2010 999 Influenza 05/09/2015 sanofi pasteur PMC Fluzone [id number] Intramuscular Left Deltoid 05/09/2015 02/22/2015 141 Pneumococcal 06/29/2016 Geota-Iujfiu-Hjcztkw-Praxis WAL Prevnar 13 [id number] Intramuscular Right Deltoid 06/29/2016 09/14/2012 133 Zostavax [...] [id number] Self Insurance Fund *INVALID State Self Insurance [id number] N/A Comp [place] [employer] [place] [id number] Wednesday, 2015 History of Encounters Visit Date [...] Cassidy MD 12/08/2016 Nurse visit Donte Hastings NEWSPAPER EDITOR 12/02/2016 Nurse visit Yvonne Cassidy MD 11/16/2016 Nurse visit Yvonne Cassidy MD 11/10/2016 Nurse visit Yvonne Cassidy MD 11/02/2016 Nurse visit Donte Hastings NEWSPAPER EDITOR 10/28/2016 Nurse visit Yvonne Cassidy MD 10/06/2016 [...] Cassidy MD 07/14/2016 Nurse visit Donte Hastings NEWSPAPER EDITOR 07/06/2016 Nurse visit Yvonne Cassidy MD 06/29/2016 Nurse visit Yvonne Cassidy MD 06/24/2016 Nurse visit Yvonne Cassidy MD 06/16/2016 Office visit Yvonne Cassidy MD 06/14/2016 [facility] Alexander Park MD 06/09/2016 Nurse visit Yvonne Cassidy MD 06/02/2016 Office visit 06/02/2016 Office visit Karolyn Millan NEWSPAPER EDITOR 06/01/2016 Nurse visit Yvonne Cassidy MD 05/27/2016 Nurse visit Yvonne Cassidy MD 05/11/2016 Nurse visit Yvonne Cassidy MD 05/05/2016 Nurse visit Yvonne Cassidy MD 04/29/2016 Nurse visit Yvonne Cassidy MD 04/23/2016 Office visit Jessie Mock NEWSPAPER EDITOR 04/13/2016 Nurse visit Yvonne Cassidy MD 04/07/2016 Nurse visit Yvonne Cassidy MD 04/01/2016 Office visit Jessie Mock NEWSPAPER EDITOR 03/26/2016 Nurse visit Yvonne Cassidy MD 03/17/2016 Nurse visit Yvonne Cassidy MD 03/11/2016 Nurse visit Yvonne Cassidy MD 03/04/2016 Office visit Jessie Mock NEWSPAPER EDITOR 03/02/2016 Nurse visit Yvonne Cassidy MD 02/19/2016 Nurse visit Yvonne Cassidy MD 02/12/2016 Office visit Jessie Mock NEWSPAPER EDITOR 02/03/2016 Nurse visit Yvonne Cassidy MD 01/27/2016 Nurse visit Yvonne Cassidy MD 01/15/2016 Nurse visit Yvonne Cassidy MD 01/08/2016 Office visit Jessie Mock NEWSPAPER EDITOR 12/25/2015 Nurse visit Yvonne Cassidy MD 12/09/2015 Nurse visit Yvonne Cassidy MD 12/02/2015 Nurse visit Yvonne Cassidy MD 11/29/2015 Nurse visit Donte Hastings NEWSPAPER EDITOR 11/28/2015 Nurse visit Jessie Mock NEWSPAPER EDITOR 11/27/2015 Office visit Jessie Mock NEWSPAPER EDITOR 11/25/2015 Office visit Donte Hastings NEWSPAPER EDITOR 11/18/2015 Nurse visit Donte Hastings NEWSPAPER EDITOR 11/11/2015 Nurse visit Jessie Mock NEWSPAPER EDITOR 11/04/2015 Nurse visit Donte Hastings NEWSPAPER EDITOR 10/29/2015 Office visit Jessie Mock NEWSPAPER EDITOR 10/28/2015 Nurse visit Jessie Mock NEWSPAPER EDITOR 10/21/2015 Nurse visit Glenn Tejeda MD 10/15/2015 Nurse visit Francisco J Jesus DO 10/09/2015 Nurse visit Glenn Tejeda MD 10/02/2015 Office visit April Atkinson NEWSPAPER EDITOR 10/01/2015 Nurse visit Jessie Mock NEWSPAPER EDITOR 09/11/2015 Nurse visit Yvonne Cassidy MD 09/05/2015 [...] Office visit 05/29/2015 Office visit Karolyn Millan NEWSPAPER EDITOR 05/29/2015 Nurse visit Yvonne Cassidy MD 05/14/2015 Nurse visit Francisco J Jesus DO 05/09/2015 Nurse visit Yvonne Cassidy MD 04/30/2015 Nurse visit Yvonne Cassidy MD 04/23/2015 Nurse visit Yvonne Cassidy MD 04/18/2015 Nurse visit Nidia Darby NEWSPAPER EDITOR 04/09/2015 Nurse visit Yvonne Cassidy MD 04/01/2015 Nurse visit Yvonne Cassidy MD 03/27/[address] Cody Horvath MD 03/25/2015 [facility] Darin Park MD 03/19/2015 Nurse visit Yvonne Cassidy MD 03/19/2015 Office visit Nidia Darby NEWSPAPER EDITOR 03/04/2015 Nurse visit Yvonne Cassidy MD 02/25/2015 [...] Office visit 12/31/2014 Office visit Karolyn Millan NEWSPAPER EDITOR 12/24/2014 Nurse visit Yvonne Cassidy MD 12/17/2014 [...] Cassidy MD 10/11/2014 Office visit Karolyn Millan NEWSPAPER EDITOR 10/09/2014 Nurse visit Yvonne Cassidy MD 10/04/2014 Nurse visit Yvonne Cassidy MD 09/19/2014 Surgery Karolyn Millan NEWSPAPER EDITOR 09/13/2014 Office visit Yvonne Cassidy MD 09/06/2014 Nurse visit Yvonne Cassidy MD 08/28/2014 [facility] Chauncey Hogan MD 08/28/2014 [facility] Joe Thomas MD 08/23/2014 Nurse visit Yvonne Cassidy MD 08/22/2014 Surgery Joe Thomas MD 08/16/2014 Nurse visit Yvonne Cassidy MD 08/07/2014 Nurse visit Yvonne Cassidy MD 08/01/2014 Nurse visit Jessie Mock NEWSPAPER EDITOR 07/25/2014 Nurse visit Nidia Darby NEWSPAPER EDITOR 07/16/2014 Nurse visit Yvonne Cassidy MD 07/09/2014 [...] Cassidy MD 03/20/2014 Nurse visit Jessie Mock NEWSPAPER EDITOR 03/13/2014 Nurse visit Donte Hastings NEWSPAPER EDITOR 03/07/2014 Nurse visit Yvonne Cassidy MD 02/27/2014 Nurse visit Jessie Mock NEWSPAPER EDITOR 02/20/2014 Nurse visit Donte Hastings NEWSPAPER EDITOR 02/13/2014 Nurse visit Donte Hastings NEWSPAPER EDITOR 02/13/2014 Procedures Joe Thomas MD 02/07/2014 Office visit Joe Thomas MD 02/06/2014 Nurse visit Yvonne Cassidy MD 01/17/2014 Nurse visit Nidia Darby NEWSPAPER EDITOR 01/10/2014 Nurse visit Yvonne Cassidy MD 01/02/2014 Nurse visit Yvonne Cassidy MD 12/26/2013 Nurse visit Yvonne Cassidy MD 12/18/2013 Nurse visit Yvonne Cassidy MD 12/12/2013 Nurse visit Yvonne Cassidy MD 12/05/2013 Nurse visit Yvonne Cassidy MD 11/28/2013 Nurse visit Yvonne Cassidy MD 11/21/2013 Nurse visit Yvonne Cassidy MD 11/14/2013 Nurse visit Yvonne Cassidy MD 11/07/2013 Nurse visit Nidia Darby NEWSPAPER EDITOR 10/31/2013 Nurse visit Nidia Darby NEWSPAPER EDITOR 10/25/2013 Nurse visit Nidia Darby NEWSPAPER EDITOR 10/18/2013 Voided Nidia Darby NEWSPAPER EDITOR 10/10/2013 Voided Yvonne Cassidy MD 10/03/2013 Nurse [...] Mart MD 04/18/2013 Nurse visit Nidia Darby NEWSPAPER EDITOR 04/04/2013 Nurse visit Nidia Darby NEWSPAPER EDITOR 03/28/2013 Nurse visit Nidia Darby NEWSPAPER EDITOR 03/21/2013 Nurse visit Nidia Darby NEWSPAPER EDITOR 03/13/2013 Nurse visit Nidia Darby NEWSPAPER EDITOR 03/09/2013 Nurse visit Nidia Darby NEWSPAPER EDITOR 03/02/2013 Nurse visit Nidia Darby NEWSPAPER EDITOR 02/21/2013 Nurse visit Nidia Darby NEWSPAPER EDITOR 02/13/2013 Office visit Nidia GonzalesZafar Wilner NEWSPAPER EDITOR 02/06/2013 Nurse visit Bria Mart MD 01/31/2013 [...] MD 10/04/2012 Nurse visit Nidia Sheridan Darby NEWSPAPER EDITOR 09/27/2012 Nurse visit Bria Mart MD 09/22/2012 [...] MD 06/07/2012 Nurse visit Nidia Sheridan Darby NEWSPAPER EDITOR 06/07/2012 Voided Francisco J Jesus 06/01/2012 Office [...] Bria Mart MD 03/15/2012 Nurse visit Bria Matr MD 03/08/2012 Nurse visit Bria Mart MD [...] Mart MD 09/08/2011 Office visit Jessie Mock NEWSPAPER EDITOR 09/01/2011 Nurse visit Bria Mart MD 08/21/2011 [...]
--- OUTSIDE RECORDS SUMMARY | 2017-05-06 14:51 | XMS REPORT ---
Author Author Jessie Mock [facility] Address [address] [place], [place] [id number] Care Team Providers Care Clam Shovel Operator Name Role Phone Jessie Mock PCP Unavailable [...] Reviewed 08/21/2011 12:00 AM Depo-Medrol 40 mg [facility]#[id number] Reviewed 03/02/2016 12:00 AM IMMUNOTHERAPY INJECTIONS Reviewed [...] Reviewed 11/27/2011 12:00 AM Depo-Medrol 40 mg [facility]#[id number] Reviewed 12/01/2011 12:00 AM IMMUNOTHERAPY INJECTIONS Reviewed [...] 02/13/2013 12:00 AM Decadron, Per 1 Mg [facility]# [id number] Reviewed 02/13/2013 12:00 AM Depo-Medrol, Per 80 Mg [facility]#[id number] Reviewed 06/05/2013 12:00 AM MAMMOGRAM SCREENING Returned [...] BILI 0.50 mg/dLCALCIUM 10.10 mg/dLeGFR >60 mL/min/1.73 [id number] 10.0 secsINR 1.0 PTT 28.20 secs 08/28/2014 [...] CVX Influenza 06/02/2010 sanofi pasteur PMC Fluzone [id number] Intramuscular Left Deltoid 06/02/2010 02/25/2010 999 Influenza 05/09/2015 sanofi pasteur PMC Fluzone [id number] Intramuscular Left Deltoid 05/09/2015 02/22/2015 141 History [...] for breast cancer Apr 29 2016 1:37PM Payers Insurance Name Company Name Plan Name Plan Number Policy Number Policy Group Number Start Date [employer]BS [employer] [place] [id number] June [facility] Self Insurance Fund *INVALID State Self Insurance [id number] N/A Comp [place] [id number] Wednesday, 2015 History of Encounters Visit Date Visit Type Provider 04/23/2016 Office visit Jessie Mock FRONT LINE SUPERVISOR 04/13/2016 Nurse visit Yvonne Cassidy MD 04/07/2016 Nurse visit Yvonne Cassidy MD 04/01/2016 Office visit Jessie Mock FRONT LINE SUPERVISOR 03/26/2016 Nurse visit Yvonne Cassidy MD 03/17/2016 Nurse visit Yvonne Cassidy MD 03/11/2016 Nurse visit Yvonne Cassidy MD 03/04/2016 Office visit Jessie Mock FRONT LINE SUPERVISOR 03/02/2016 Nurse visit Yvonne Cassidy MD 02/19/2016 Nurse visit Yvonne Cassidy MD 02/12/2016 Office visit Jessie Mock FRONT LINE SUPERVISOR 02/03/2016 Nurse visit Yvonne Cassidy MD 01/27/2016 Nurse visit Yvonne Cassidy MD 01/15/2016 Nurse visit Yvonne Cassidy MD 01/08/2016 Office visit Jessie Mock FRONT LINE SUPERVISOR 12/25/2015 Nurse visit Yvonne Cassidy MD 12/09/2015 Nurse visit Yvonne Cassidy MD 12/02/2015 Nurse visit Yvonne Cassidy MD 11/29/2015 Nurse visit Donte Hastings FRONT LINE SUPERVISOR 11/28/2015 Nurse visit Jessie Mock FRONT LINE SUPERVISOR 11/27/2015 Office visit Jessie Mock FRONT LINE SUPERVISOR 11/25/2015 Office visit Donte Hastings FRONT LINE SUPERVISOR 11/18/2015 Nurse visit Donte Hastings FRONT LINE SUPERVISOR 11/11/2015 Nurse visit Jessie Mock FRONT LINE SUPERVISOR 11/04/2015 Nurse visit Donte Hastings FRONT LINE SUPERVISOR 10/29/2015 Office visit Jessie Mock FRONT LINE SUPERVISOR 10/28/2015 Nurse visit Jessie Mock FRONT LINE SUPERVISOR 10/21/2015 Nurse visit Glenn Tejeda MD 10/15/2015 Nurse visit Francisco J Jesus DO 10/09/2015 Nurse visit Glenn Tejeda MD 10/02/2015 Office visit Apriljoana Atkinson FRONT LINE SUPERVISOR 10/01/2015 Nurse visit Jessie Mock FRONT LINE SUPERVISOR 09/11/2015 Nurse visit Yvonne Cassidy MD [...] Office visit 05/29/2015 Office visit Karolyn Millan FRONT LINE SUPERVISOR 05/29/2015 Nurse visit Yvonne Cassidy MD 05/14/2015 Nurse visit Francisco J Jesus DO 05/09/2015 Nurse visit Yvonne Cassidy MD 04/30/2015 Nurse visit Yvonne Cassidy MD 04/23/2015 Nurse visit Yvonne Cassidy MD 04/18/2015 Nurse visit Nidia Darby FRONT LINE SUPERVISOR 04/09/2015 Nurse visit Yvonne Cassidy MD 04/01/2015 Nurse visit Yvonne Cassidy MD 03/27/[address] Cody Horvath MD 03/25/2015 [facility] Alexander Park MD 03/19/2015 Nurse visit Yvonne Cassidy MD 03/19/2015 Office visit Nidia Darby FRONT LINE SUPERVISOR 03/04/2015 Nurse visit Yvonne Cassidy MD [...] Office visit 12/31/2014 Office visit Karolyn Millan FRONT LINE SUPERVISOR 12/24/2014 Nurse visit Yvonne Cassidy MD 12/17/2014 Nurse visit Yvonne Cassidy MD 12/13/2014 Nurse visit Yvonne Cassidy MD 11/28/2014 Nurse visit Yvonne Cassidy MD 11/19/2014 Nurse visit Yvonne Cassidy MD 11/12/2014 Nurse visit Yvonne Cassidy MD 11/05/2014 Nurse visit Yvonne Cassidy MD 11/05/2014 [facility] Darin Park MD 10/29/2014 Nurse visit Yvonne Cassidy MD 10/24/2014 Nurse visit Yvonne Cassidy MD 10/15/2014 Nurse visit Yvonne Cassidy MD 10/11/2014 Office visit Karolyn Millan FRONT LINE SUPERVISOR 10/09/2014 Nurse visit Yvonne Cassidy MD 10/04/2014 Nurse visit Yvonne Cassidy MD 09/19/2014 Surgery Karolyn NiteshZafar Millan FRONT LINE SUPERVISOR 09/13/2014 Office visit Yvonne Cassidy MD 09/06/2014 Nurse visit Yvonne Cassidy MD 08/28/2014 [facility] Chauncey Hogan MD 08/28/2014 [facility] Joe Thomas MD 08/23/2014 Nurse visit Yvonne Cassidy MD 08/22/2014 Surgery Joe Thomas MD 08/16/2014 Nurse visit Yvonne Cassidy MD 08/07/2014 Nurse visit Yvonne Cassidy MD 08/01/2014 Nurse visit Jessie Mock FRONT LINE SUPERVISOR 07/25/2014 Nurse visit Nidia Darby FRONT LINE SUPERVISOR 07/16/2014 Nurse visit Yvonne Cassidy MD [...] Cassidy MD 03/20/2014 Nurse visit Jessie Mock FRONT LINE SUPERVISOR 03/13/2014 Nurse visit Donte Hastings FRONT LINE SUPERVISOR 03/07/2014 Nurse visit Yvonne Cassidy MD 02/27/2014 Nurse visit Jessie Mock FRONT LINE SUPERVISOR 02/20/2014 Nurse visit Donte Hastings FRONT LINE SUPERVISOR 02/13/2014 Nurse visit Donte Hastings FRONT LINE SUPERVISOR 02/13/2014 Procedures Joe Thomas MD 02/07/2014 Office visit Joe Thomas MD 02/06/2014 Nurse visit Yvonne Cassidy MD 01/17/2014 Nurse visit Nidia Darby FRONT LINE SUPERVISOR 01/10/2014 Nurse visit Yvonne Cassidy MD 01/02/2014 Nurse visit Yvonne Cassidy MD 12/26/2013 Nurse visit Yvonne Cassidy MD 12/18/2013 Nurse visit Yvonne Cassidy MD 12/12/2013 Nurse visit Yvonne Cassidy MD 12/05/2013 Nurse visit Yvonne Cassidy MD 11/28/2013 Nurse visit Yvonne Cassidy MD 11/21/2013 Nurse visit Yvonne Cassidy MD 11/14/2013 Nurse visit Yvonne Cassidy MD 11/07/2013 Nurse visit Nidia Darby FRONT LINE SUPERVISOR 10/31/2013 Nurse visit Nidia Darby FRONT LINE SUPERVISOR 10/25/2013 Nurse visit Nidia Darby FRONT LINE SUPERVISOR 10/18/2013 Voided Nidia Darby FRONT LINE SUPERVISOR 10/10/2013 Voided Yvonne Cassidy MD 10/03/2013 [...] Yvonne Cassidy MD 07/20/2013 Nurse visit Yvonne Cassdiy MD 07/04/2013 Nurse visit Yvonne Cassidy MD [...] Mart MD 04/18/2013 Nurse visit Nidia Darby FRONT LINE SUPERVISOR 04/04/2013 Nurse visit Nidia Darby FRONT LINE SUPERVISOR 03/28/2013 Nurse visit Nidia Darby FRONT LINE SUPERVISOR 03/21/2013 Nurse visit Nidia Darby FRONT LINE SUPERVISOR 03/13/2013 Nurse visit Nidia Darby FRONT LINE SUPERVISOR 03/09/2013 Nurse visit Nidia Darby FRONT LINE SUPERVISOR 03/02/2013 Nurse visit Nidia Darby FRONT LINE SUPERVISOR 02/21/2013 Nurse visit Nidia Darby FRONT LINE SUPERVISOR 02/13/2013 Office visit Nidia Darby FRONT LINE SUPERVISOR 02/06/2013 Nurse visit Bria Mart MD [...] Bria Mart MD 11/22/2012 Nurse visit Bria Mrat MD 11/15/2012 Nurse visit Bria Mart MD 11/08/2012 Nurse visit Bria Mart MD 11/01/2012 Nurse visit Bria Mart MD 10/25/2012 Nurse visit Bria Mart MD 10/18/2012 Nurse visit Bria Mart MD 10/11/2012 Nurse visit Bria Mart MD 10/04/2012 Nurse visit Nidia Darby FRONT LINE SUPERVISOR 09/27/2012 Nurse visit Bria Mart MD [...] Mart MD 06/07/2012 Nurse visit Nidia Darby FRONT LINE SUPERVISOR 06/07/2012 Voided Francisco J Jesus DO [...] Mart MD 09/08/2011 Office visit Jessie Mock FRONT LINE SUPERVISOR 09/01/2011 Nurse visit Bria Mart MD [...]
--- OUTSIDE RECORDS SUMMARY | 2017-05-06 14:54 | XMS REPORT ---
Author Author Jessie Mock [facility] Address [address] [place], [place] [address] Care Team Providers Care Mid Level Provider Name Role Phone Jessie Mock PCP Unavailable [...] Depo-Medrol 40 mg [facility]#[id number] Reviewed 03/02/2016 12:00 AM IMMUNOTHERAPY INJECTIONS Reviewed [...] Depo-Medrol 40 mg [facility]#[id number] Reviewed 12/01/2011 12:00 AM IMMUNOTHERAPY INJECTIONS Reviewed [...] Per 1 Mg [facility]# [address]-52 Reviewed 02/13/2013 12:00 AM Depo-Medrol, Per 80 Mg [facility]#[id number] Reviewed 06/05/2013 12:00 AM MAMMOGRAM SCREENING Reviewed [...] CVX Influenza 06/02/2010 sanofi pasteur PMC Fluzone [id number] Intramuscular Left Deltoid 06/02/2010 02/25/2010 999 Influenza 05/09/2015 sanofi pasteur PMC Fluzone [id number] Intramuscular Left Deltoid 05/09/2015 02/22/2015 141 Pneumococcal 06/29/2016 Aafgz-Joiniz-Nqxvoxd-Praxis W[facility] Prevnar 13 [id number] Intramuscular Right Deltoid 06/29/2016 09/14/2012 133 Zostavax [...] Policy Number Policy Group Number Start Date [facility] [id number] June [facility] Self Insurance Fund *INVALID State Self Insurance [id number] N/A Comp [place] [id number] Wednesday, 2015 History of Encounters Visit Date [...] visit Yvonne Cassidy MD 12/30/2016 Nurse visit Yvnone Cassidy MD 12/22/2016 Nurse visit Yvonne Cassidy MD 12/08/2016 Nurse visit Donte Hastings PUBLIC WELFARE WORKER 12/02/2016 Nurse visit Yvonne Cassidy MD 11/16/2016 Nurse visit Yvonne Cassidy MD 11/10/2016 Nurse visit Yvonne Cassidy MD 11/02/2016 Nurse visit Donte Hastings PUBLIC WELFARE WORKER 10/28/2016 Nurse visit Yvonne Cassidy MD 10/06/2016 [...] Cassidy MD 07/14/2016 Nurse visit Donte Hastings PUBLIC WELFARE WORKER 07/06/2016 Nurse visit Yvonne Cassidy MD 06/29/2016 Nurse visit Yvonne Cassidy MD 06/24/2016 Nurse visit Yvonne Cassidy MD 06/16/2016 Office visit Yvonne Cassidy MD 06/14/2016 [facility] Alexander Park MD 06/09/2016 Nurse visit Yvonne Cassidy MD 06/02/2016 Office visit 06/02/2016 Office visit Karolyn Millan PUBLIC WELFARE WORKER 06/01/2016 Nurse visit Yvonne Cassidy MD 05/27/2016 Nurse visit Yvonne Cassidy MD 05/11/2016 Nurse visit Yvonne Cassidy MD 05/05/2016 Nurse visit Yvonne Cassidy MD 04/29/2016 Nurse visit Yvonne Cassidy MD 04/23/2016 Office visit Jessie Mock PUBLIC WELFARE WORKER 04/13/2016 Nurse visit Yvonne Cassidy MD 04/07/2016 Nurse visit Yvonne Cassidy MD 04/01/2016 Office visit Jessie Mock PUBLIC WELFARE WORKER 03/26/2016 Nurse visit Yvonne Cassidy MD 03/17/2016 Nurse visit Yvonne Cassidy MD 03/11/2016 Nurse visit Yvonne Cassidy MD 03/04/2016 Office visit Jessie Mock PUBLIC WELFARE WORKER 03/02/2016 Nurse visit Yvonne Cassidy MD 02/19/2016 Nurse visit Yvonne Cassidy MD 02/12/2016 Office visit Jessie Mock PUBLIC WELFARE WORKER 02/03/2016 Nurse visit Yvonne Cassidy MD 01/27/2016 Nurse visit Yvonne Cassidy MD 01/15/2016 Nurse visit Yvonne Cassidy MD 01/08/2016 Office visit Jessie Mock PUBLIC WELFARE WORKER 12/25/2015 Nurse visit Yvonne Cassidy MD 12/09/2015 Nurse visit Yvonne Cassidy MD 12/02/2015 Nurse visit Yvonne Cassidy MD 11/29/2015 Nurse visit Donte Hastings PUBLIC WELFARE WORKER 11/28/2015 Nurse visit Jessie Mock PUBLIC WELFARE WORKER 11/27/2015 Office visit Jessie Nish PUBLIC WELFARE WORKER 11/25/2015 Office visit Donte Hastings PUBLIC WELFARE WORKER 11/18/2015 Nurse visit Donte Hastings PUBLIC WELFARE WORKER 11/11/2015 Nurse visit Jessie Mock PUBLIC WELFARE WORKER 11/04/2015 Nurse visit Donte Hastings PUBLIC WELFARE WORKER 10/29/2015 Office visit Jessie Nish PUBLIC WELFARE WORKER 10/28/2015 Nurse visit Jessie Nish PUBLIC WELFARE WORKER 10/21/2015 Nurse visit Glenn Tejeda MD 10/15/2015 Nurse visit Francisco J Jesus DO 10/09/2015 Nurse visit Glenn Tejeda MD 10/02/2015 Office visit April Atkinson PUBLIC WELFARE WORKER 10/01/2015 Nurse visit Jessie Mock PUBLIC WELFARE WORKER 09/11/2015 Nurse visit Yvonne Cassidy MD 09/05/2015 [...] Office visit 05/29/2015 Office visit Karolyn Millan PUBLIC WELFARE WORKER 05/29/2015 Nurse visit Yvonne Cassidy MD 05/14/2015 Nurse visit Francisco J Jesus DO 05/09/2015 Nurse visit Yvonne Cassidy MD 04/30/2015 Nurse visit Yvonne Cassidy MD 04/23/2015 Nurse visit Yvonne Cassidy MD 04/18/2015 Nurse visit Nidia Darby PUBLIC WELFARE WORKER 04/09/2015 Nurse visit Yvonne Cassidy MD 04/01/2015 Nurse visit Yvonne Cassidy MD 03/27/[address] Cody Horvath MD 03/25/2015 [facility] Darin Park MD 03/19/2015 Nurse visit Yvonne Cassidy MD 03/19/2015 Office visit Nidia Darby PUBLIC WELFARE WORKER 03/04/2015 Nurse visit Yvonne Cassidy MD 02/25/2015 [...] Office visit 12/31/2014 Office visit Karolyn Millan PUBLIC WELFARE WORKER 12/24/2014 Nurse visit Yvonne Cassidy MD 12/17/2014 Nurse visit Yvonne Cassidy MD 12/13/2014 Nurse visit Yvonne Cassidy MD 11/28/2014 Nurse visit Yvonne Cassidy MD 11/19/2014 Nurse visit Yvonne Cassidy MD 11/12/2014 Nurse visit Yvonne Cassidy MD 11/05/2014 Nurse visit Yvonne Cassidy MD 11/05/2014 [facility] Darin Park MD 10/29/2014 Nurse visit Yvonne Cassidy MD 10/24/2014 Nurse visit Yvonne Cassidy MD 10/15/2014 Nurse visit Yvonne Cassidy MD 10/11/2014 Office visit Karolyn Millan PUBLIC WELFARE WORKER 10/09/2014 Nurse visit Yvonne Cassidy MD 10/04/2014 Nurse visit Yvonne Cassidy MD 09/19/2014 Surgery Karolyn Millan PUBLIC WELFARE WORKER 09/13/2014 Office visit Yvonne Cassidy MD 09/06/2014 Nurse visit Yvonne Cassidy MD 08/28/2014 Hospital Chauncey Hogan MD 08/28/2014 Hospital Joe Thomas MD 08/23/2014 Nurse visit Yvonne Cassidy MD 08/22/2014 Surgery Joe Thomas MD 08/16/2014 Nurse visit Yvonne Cassidy MD 08/07/2014 Nurse visit Yvonne Cassidy MD 08/01/2014 Nurse visit Jessie Mock PUBLIC WELFARE WORKER 07/25/2014 Nurse visit Nidia Darby PUBLIC WELFARE WORKER 07/16/2014 Nurse visit Yvonne Cassidy MD 07/09/2014 [...] Cassidy MD 03/20/2014 Nurse visit Jessie Mock PUBLIC WELFARE WORKER 03/13/2014 Nurse visit Donte Hastings PUBLIC WELFARE WORKER 03/07/2014 Nurse visit Yvonne Cassidy MD 02/27/2014 Nurse visit Jessie Mock PUBLIC WELFARE WORKER 02/20/2014 Nurse visit Donte Hastings PUBLIC WELFARE WORKER 02/13/2014 Nurse visit Donte Hastings PUBLIC WELFARE WORKER 02/13/2014 Procedures Joe Thomas MD 02/07/2014 Office visit Joe Thomas MD 02/06/2014 Nurse visit Yvonne Cassidy MD 01/17/2014 Nurse visit Nidia Darby PUBLIC WELFARE WORKER 01/10/2014 Nurse visit Yvonne Cassidy MD 01/02/2014 Nurse visit Yvonne Cassidy MD 12/26/2013 Nurse visit Yvonne Cassidy MD 12/18/2013 Nurse visit Yvonne Cassidy MD 12/12/2013 Nurse visit Yvonne Cassidy MD 12/05/2013 Nurse visit Yvonne Cassidy MD 11/28/2013 Nurse visit Yvonne Cassidy MD 11/21/2013 Nurse visit Yvonne Cassidy MD 11/14/2013 Nurse visit Yvonne Cassidy MD 11/07/2013 Nurse visit Nidia Darby PUBLIC WELFARE WORKER 10/31/2013 Nurse visit Nidia Darby PUBLIC WELFARE WORKER 10/25/2013 Nurse visit Nidia Darby PUBLIC WELFARE WORKER 10/18/2013 Voided Nidia Darby PUBLIC WELFARE WORKER 10/10/2013 Voided Yvonne Cassidy MD 10/03/2013 Nurse [...] Mart MD 04/18/2013 Nurse visit Nidia Darby PUBLIC WELFARE WORKER 04/04/2013 Nurse visit Nidia Darby PUBLIC WELFARE WORKER 03/28/2013 Nurse visit Nidia Darby PUBLIC WELFARE WORKER 03/21/2013 Nurse visit Nidia Darby PUBLIC WELFARE WORKER 03/13/2013 Nurse visit Nidia Darby PUBLIC WELFARE WORKER 03/09/2013 Nurse visit Nidia Darby PUBLIC WELFARE WORKER 03/02/2013 Nurse visit Nidia Darby PUBLIC WELFARE WORKER 02/21/2013 Nurse visit Nidia Darby PUBLIC WELFARE WORKER 02/13/2013 Office visit Nidia Darby PUBLIC WELFARE WORKER 02/06/2013 Nurse visit Bria Mart MD 01/31/2013 [...] MD 10/04/2012 Nurse visit Nidia NZafar Darby PUBLIC WELFARE WORKER 09/27/2012 Nurse visit Bria Mart MD 09/22/2012 [...] MD 06/07/2012 Nurse visit Nidia GonzalesZafar Darby PUBLIC WELFARE WORKER 06/07/2012 Voided Francisco J Jesus 06/01/2012 Office [...] Mart MD 09/08/2011 Office visit Jessie Mock PUBLIC WELFARE WORKER 09/01/2011 Nurse visit Bria Mart MD 08/21/2011 [...]
--- OUTSIDE RECORDS SUMMARY | 2017-05-06 14:57 | XMS REPORT ---
Author Author Yvonne Cassidy Organization [facility] Address [address] [place], [place] [address] Care Team Providers Care Registrar Assistant Name Role Phone Yvonne Cassidy PCP Yvonne [...] AM Depo-Medrol 40 mg [facility]#[id number] Reviewed 03/02/2016 12:00 AM IMMUNOTHERAPY INJECTIONS Reviewed [...] Reviewed 06/09/2016 12:00 AM IMMUNOTHERAPY INJECTIONS Reviewed 10/29/2011 12:00 AM IMMUNOTHERAPY INJECTIONS Reviewed 11/03/2011 12:00 AM IMMUNOTHERAPY INJECTIONS Reviewed 11/10/2011 12:00 AM IMMUNOTHERAPY INJECTIONS Reviewed 11/17/2011 12:00 AM IMMUNOTHERAPY INJECTIONS Reviewed 11/27/2011 12:00 AM THER/PROPH/DIAG INJ SC/IM Reviewed 11/27/2011 12:00 AM Depo-Medrol 40 mg [facility]#[id number] Reviewed 12/01/2011 12:00 AM IMMUNOTHERAPY INJECTIONS Reviewed [...] Decadron, Per 1 Mg [facility]# [address]-71 Reviewed 02/13/2013 12:00 AM Depo-Medrol, Per 80 Mg [facility]#[id number] Reviewed 06/05/2013 12:00 AM MAMMOGRAM SCREENING Reviewed [...] CVX Influenza 06/02/2010 sanofi pasteur PMC Fluzone [id number] Intramuscular Left Deltoid 06/02/2010 02/25/2010 999 Influenza 05/09/2015 sanofi pasteur PMC Fluzone [id number] Intramuscular Left Deltoid 05/09/2015 02/22/2015 141 History [...] to other allergen Jun 09 2016 4:06PM Payers Insurance Name Company Name Plan Name Plan Number Policy Number Policy Group Number Start Date BCBS [facility] [id number] June [facility] Self Insurance Fund *INVALID State Self Insurance [id number] N/A Comp [place] [id number] Wednesday, 2015 History of Encounters Visit Date Visit Type Provider 06/09/2016 Nurse visit Yvonne Cassidy MD 06/02/2016 Office visit 06/02/2016 Office visit Karolyn Millan ICU MANAGER 06/01/2016 Nurse visit Yvonne Cassidy MD 05/27/2016 Nurse visit Yvonne Cassidy MD 05/11/2016 Nurse visit Yvonne Cassidy MD 05/05/2016 Nurse visit Yvonne Cassidy MD 04/29/2016 Nurse visit Yvonne Cassidy MD 04/23/2016 Office visit Jessie Mock ICU MANAGER 04/13/2016 Nurse visit Yvonne Cassidy MD 04/07/2016 Nurse visit Yvonne Cassidy MD 04/01/2016 Office visit Jessie Mock ICU MANAGER 03/26/2016 Nurse visit Yvonne Cassidy MD 03/17/2016 Nurse visit Yvonne Cassidy MD 03/11/2016 Nurse visit Yvonne Cassidy MD 03/04/2016 Office visit Jessie Mock ICU MANAGER 03/02/2016 Nurse visit Yvonne Cassidy MD 02/19/2016 Nurse visit Yvonne Cassidy MD 02/12/2016 Office visit Jessie Mock ICU MANAGER 02/03/2016 Nurse visit Yvonne Cassidy MD 01/27/2016 Nurse visit Yvonne Cassidy MD 01/15/2016 Nurse visit Yvonne Cassidy MD 01/08/2016 Office visit Jessie Mock ICU MANAGER 12/25/2015 Nurse visit Yvonne Cassidy MD 12/09/2015 Nurse visit Yvonne Cassidy MD 12/02/2015 Nurse visit Yvonne Cassidy MD 11/29/2015 Nurse visit Donte Hastings ICU MANAGER 11/28/2015 Nurse visit Jessie Mock ICU MANAGER 11/27/2015 Office visit Jessie Mock ICU MANAGER 11/25/2015 Office visit Donte Darling ICU MANAGER 11/18/2015 Nurse visit Donte Hastings ICU MANAGER 11/11/2015 Nurse visit Jessie Mock ICU MANAGER 11/04/2015 Nurse visit Donte Hastings ICU MANAGER 10/29/2015 Office visit Jessie Mock ICU MANAGER 10/28/2015 Nurse visit Jessie Mock ICU MANAGER 10/21/2015 Nurse visit Glenn Tejeda MD 10/15/2015 Nurse visit Francisco J Jesus DO 10/09/2015 Nurse visit Glenn Tejeda MD 10/02/2015 Office visit April Atkinson ICU MANAGER 10/01/2015 Nurse visit Jessie Nish ICU MANAGER 09/11/2015 Nurse visit Yvonne Cassidy MD 09/05/2015 [...] Office visit 05/29/2015 Office visit Karolyn Millan ICU MANAGER 05/29/2015 Nurse visit Yvonne Cassidy MD 05/14/2015 Nurse visit Francisco J Jesus DO 05/09/2015 Nurse visit Yvonne Cassidy MD 04/30/2015 Nurse visit Yvonne Cassidy MD 04/23/2015 Nurse visit Yvonne Cassidy MD 04/18/2015 Nurse visit Nidia Darby ICU MANAGER 04/09/2015 Nurse visit Yvonne Cassidy MD 04/01/2015 Nurse visit Yvonne Cassidy MD 03/27/[address] Cody Horvath MD 03/25/2015 [facility] Alexander Park MD 03/19/2015 Nurse visit Yvonne Cassidy MD 03/19/2015 Office visit Nidia Darby ICU MANAGER 03/04/2015 Nurse visit Yvonne Cassidy MD 02/25/2015 [...] Office visit 12/31/2014 Office visit Karolyn Millan ICU MANAGER 12/24/2014 Nurse visit Yvonne Cassidy MD 12/17/2014 Nurse visit Yvonne Cassidy MD 12/13/2014 Nurse visit Yvonne Cassidy MD 11/28/2014 Nurse visit Yvonne Cassidy MD 11/19/2014 Nurse visit Yvonne Cassidy MD 11/12/2014 Nurse visit Yvonne Cassidy MD 11/05/2014 Nurse visit Yvonne Cassidy MD 11/05/2014 [facility] Darin Park MD 10/29/2014 Nurse visit Yvonne Cassidy MD 10/24/2014 Nurse visit Yvonne Cassidy MD 10/15/2014 Nurse visit Yvonne Cassidy MD 10/11/2014 Office visit Karolyn Millan ICU MANAGER 10/09/2014 Nurse visit Yvonne Cassidy MD 10/04/2014 Nurse visit Yvonne Cassidy MD 09/19/2014 Surgery Karolyn Millan ICU MANAGER 09/13/2014 Office visit Yvonne Cassidy MD 09/06/2014 Nurse visit Yvonne Cassidy MD 08/28/2014 [facility] Chauncey Hogan MD 08/28/2014 [facility] Joe Thomas MD 08/23/2014 Nurse visit Yvonne Cassidy MD 08/22/2014 Surgery Joe Thomas MD 08/16/2014 Nurse visit Yvonne Cassidy MD 08/07/2014 Nurse visit Yvonne Cassidy MD 08/01/2014 Nurse visit Jessie Mock ICU MANAGER 07/25/2014 Nurse visit Nidia Darby ICU MANAGER 07/16/2014 Nurse visit Yvonne Cassidy MD 07/09/2014 [...] Cassidy MD 03/20/2014 Nurse visit Jessie Mock ICU MANAGER 03/13/2014 Nurse visit Donte Hastings ICU MANAGER 03/07/2014 Nurse visit Yvonne Cassidy MD 02/27/2014 Nurse visit Jessie Mock ICU MANAGER 02/20/2014 Nurse visit Donte Hastings ICU MANAGER 02/13/2014 Nurse visit Donte Hastings ICU MANAGER 02/13/2014 Procedures Joe Thomas MD 02/07/2014 Office visit Joe Thomas MD 02/06/2014 Nurse visit Yvonne Cassidy MD 01/17/2014 Nurse visit Nidia Darby ICU MANAGER 01/10/2014 Nurse visit Yvonne Cassidy MD 01/02/2014 Nurse visit Yvonne Cassidy MD 12/26/2013 Nurse visit Yvonne Cassidy MD 12/18/2013 Nurse visit Yvonne Cassidy MD 12/12/2013 Nurse visit Yvonne Cassidy MD 12/05/2013 Nurse visit Yvonne Cassidy MD 11/28/2013 Nurse visit Yvonne Cassidy MD 11/21/2013 Nurse visit Yvonne Cassidy MD 11/14/2013 Nurse visit Yvonne Cassidy MD 11/07/2013 Nurse visit Nidia Darby ICU MANAGER 10/31/2013 Nurse visit Nidia Darby ICU MANAGER 10/25/2013 Nurse visit Nidia Darby ICU MANAGER 10/18/2013 Voided Nidia Draby ICU MANAGER 10/10/2013 Voided Yvonne Cassidy MD 10/03/2013 Nurse [...] Mart MD 04/18/2013 Nurse visit Nidia Darby ICU MANAGER 04/04/2013 Nurse visit Nidia Darby ICU MANAGER 03/28/2013 Nurse visit Nidia Darby ICU MANAGER 03/21/2013 Nurse visit Nidia Darby ICU MANAGER 03/13/2013 Nurse visit Niida Darby ICU MANAGER 03/09/2013 Nurse visit Nidia Darby ICU MANAGER 03/02/2013 Nurse visit Nidia Darby ICU MANAGER 02/21/2013 Nurse visit Nidia Darby ICU MANAGER 02/13/2013 Office visit Nidia Darby ICU MANAGER 02/06/2013 Nurse visit Bria Mart MD 01/31/2013 [...] Mart MD 10/04/2012 Nurse visit Nidia Darby ICU MANAGER 09/27/2012 Nurse visit Bria Mart MD 09/22/2012 [...] visit Bria Mart MD 07/05/2012 Nurse visit Brai Mart MD 06/21/2012 Nurse visit Bria Mart MD 06/14/2012 Nurse visit Bria Mart MD 06/07/2012 Nurse visit Nidia Darby ICU MANAGER 06/07/2012 Voided Francisco J Jesus DO 06/01/2012 [...] Mart MD 09/08/2011 Office visit Jessie Mock ICU MANAGER 09/01/2011 Nurse visit Bria Mart MD 08/21/2011 [...]
--- NOTE | 2017-05-06 15:00 | Diagnostic Imaging Report ---
INDICATION: Chest pain. COMPARISON: None. FINDINGS: Single frontal view of the chest is obtained. Heart size is normal. The pulmonary vessels appear unremarkable. There is no pneumothorax, mediastinal widening or pleural fluid demonstrated. The lungs are clear. IMPRESSION: Negative chest. Dictated by: Dictated on workstation # [id number]
--- OUTSIDE RECORDS SUMMARY | 2017-05-06 15:01 | XMS REPORT ---
Author Author Yvonne Cassidy Organization [facility] Address [address] [place], [place] [id number] Care Team Providers Care Crew Foreman Name Role Phone Yvonne Cassidy PCP Yvonne [...] Reviewed 08/21/2011 12:00 AM Depo-Medrol 40 mg [facility]#[id number] Reviewed 03/02/2016 12:00 AM IMMUNOTHERAPY INJECTIONS Reviewed [...] Reviewed 11/27/2011 12:00 AM Depo-Medrol 40 mg [facility]#[id number] Reviewed 12/01/2011 12:00 AM IMMUNOTHERAPY INJECTIONS Reviewed [...] 02/13/2013 12:00 AM Decadron, Per 1 Mg [facility]# [address]-31 Reviewed 02/13/2013 12:00 AM Depo-Medrol, Per 80 Mg [facility]#6680-5540-76 Reviewed 06/05/2013 12:00 AM MAMMOGRAM SCREENING Reviewed [...] CVX Influenza 06/02/2010 sanofi pasteur PMC Fluzone [id number] Intramuscular Left Deltoid 06/02/2010 02/25/2010 999 Influenza 05/09/2015 sanofi pasteur PMC Fluzone [id number] Intramuscular Left Deltoid 05/09/2015 02/22/2015 141 Pneumococcal 06/29/2016 Cnvqs-Bpiojk-Xdnhvdx-Praxis [facility] Prevnar 13 [id number] Intramuscular Right Deltoid 06/29/2016 09/14/2012 133 Zostavax [...] to other allergen Jan 12 2017 3:46PM Payers Insurance Name Company Name Plan Name Plan Number Policy Number Policy Group Number [id number] Self [facility] Fund *INVALID State Self Insurance [id number] N/A Comp [place] [id number] Wednesday, 2015 History of Encounters Visit Date Visit Type Provider 01/12/2017 Nurse visit Yvonne Cassidy MD 01/05/2017 Nurse visit Yvonne Cassidy MD 12/30/2016 Nurse visit Yvonne Cassidy MD 12/22/2016 Nurse visit Yvonne Cassidy MD 12/08/2016 Nurse visit Donte Hastings TELERADIOLOGIST 12/02/2016 Nurse visit Yvonne Cassidy MD 11/16/2016 Nurse visit Yvonne Cassidy MD 11/10/2016 Nurse visit Yvonne Cassidy MD 11/02/2016 Nurse visit Donte Hastings TELERADIOLOGIST 10/28/2016 Nurse visit Yvonne Cassidy MD 10/06/2016 [...] Cassidy MD 07/14/2016 Nurse visit Donte Hastings TELERADIOLOGIST 07/06/2016 Nurse visit Yvonne Cassidy MD 06/29/2016 Nurse visit Yvonne Cassidy MD 06/24/2016 Nurse visit Yvonne Cassidy MD 06/16/2016 Office visit Yvonne Cassidy MD 06/14/2016 [facility] [place] MD 06/09/2016 Nurse visit Yvonne Cassidy MD 06/02/2016 Office visit 06/02/2016 Office visit Karolyn Millan TELERADIOLOGIST 06/01/2016 Nurse visit Yvonne Cassidy MD 05/27/2016 Nurse visit Yvonne Cassidy MD 05/11/2016 Nurse visit Yvonne Cassidy MD 05/05/2016 Nurse visit Yvonne Cassidy MD 04/29/2016 Nurse visit Yvonne Cassidy MD 04/23/2016 Office visit Jessie Mock TELERADIOLOGIST 04/13/2016 Nurse visit Yvonne Cassidy MD 04/07/2016 Nurse visit Yvonne Cassidy MD 04/01/2016 Office visit Jessie Mock TELERADIOLOGIST 03/26/2016 Nurse visit Yvonne Cassidy MD 03/17/2016 Nurse visit Yvonne Cassidy MD 03/11/2016 Nurse visit Yvonne Cassidy MD 03/04/2016 Office visit Jessie Mock TELERADIOLOGIST 03/02/2016 Nurse visit Yvonne Cassidy MD 02/19/2016 Nurse visit Yvonne Cassidy MD 02/12/2016 Office visit Jessie Mock TELERADIOLOGIST 02/03/2016 Nurse visit Yvonne Cassidy MD 01/27/2016 Nurse visit Yvonne Cassidy MD 01/15/2016 Nurse visit Yvonne Cassidy MD 01/08/2016 Office visit Jessie Mock TELERADIOLOGIST 12/25/2015 Nurse visit Yvonne Cassidy MD 12/09/2015 Nurse visit Yvonne Cassidy MD 12/02/2015 Nurse visit Yvonne Cassidy MD 11/29/2015 Nurse visit Donte Hastings TELERADIOLOGIST 11/28/2015 Nurse visit Jessie Mock TELERADIOLOGIST 11/27/2015 Office visit Jessie Nish TELERADIOLOGIST 11/25/2015 Office visit Donte Hastings TELERADIOLOGIST 11/18/2015 Nurse visit Donte Hastings TELERADIOLOGIST 11/11/2015 Nurse visit Jessie Mock TELERADIOLOGIST 11/04/2015 Nurse visit Donte Hastings TELERADIOLOGIST 10/29/2015 Office visit Jessie Nish TELERADIOLOGIST 10/28/2015 Nurse visit Jessie Nish TELERADIOLOGIST 10/21/2015 Nurse visit Glenn Tejeda MD 10/15/2015 Nurse visit Francisco J Jesus DO 10/09/2015 Nurse visit Glenn Tejeda MD 10/02/2015 Office visit April Atkinson TELERADIOLOGIST 10/01/2015 Nurse visit Jessie Mock TELERADIOLOGIST 09/11/2015 Nurse visit Yvonne Cassidy MD 09/05/2015 [...] Office visit 05/29/2015 Office visit Karolyn Millan TELERADIOLOGIST 05/29/2015 Nurse visit Yvonne Cassidy MD 05/14/2015 Nurse visit Francisco J Jesus DO 05/09/2015 Nurse visit Yvonne Cassidy MD 04/30/2015 Nurse visit Yvonne Cassidy MD 04/23/2015 Nurse visit Yvonne Cassidy MD 04/18/2015 Nurse visit Nidia Darby TELERADIOLOGIST 04/09/2015 Nurse visit Yvonne Cassidy MD 04/01/2015 Nurse visit Yvonne Cassidy MD 03/27/[address] Cody Horvath MD 03/25/2015 [facility] [place] MD 03/19/2015 Nurse visit Yvonne Cassidy MD 03/19/2015 Office visit Nidia Darby TELERADIOLOGIST 03/04/2015 Nurse visit Yvonne Cassidy MD 02/25/2015 [...] Office visit 12/31/2014 Office visit Karolyn Millan TELERADIOLOGIST 12/24/2014 Nurse visit Yvonne Cassidy MD 12/17/2014 Nurse visit Yvonne Cassidy MD 12/13/2014 Nurse visit Yvonne Cassidy MD 11/28/2014 Nurse visit Yvonne Cassidy MD 11/19/2014 Nurse visit Yvonne Cassidy MD 11/12/2014 Nurse visit Yvonne Cassidy MD 11/05/2014 Nurse visit Yvonne Cassidy MD 11/05/2014 [facility] [place] MD 10/29/2014 Nurse visit Yvonne Cassidy MD 10/24/2014 Nurse visit Yvonne Cassidy MD 10/15/2014 Nurse visit Yvonne Cassidy MD 10/11/2014 Office visit Karolyn Millan TELERADIOLOGIST 10/09/2014 Nurse visit Yvonne Cassidy MD 10/04/2014 Nurse visit Yvonne Cassidy MD 09/19/2014 Surgery Karolyn Millan TELERADIOLOGIST 09/13/2014 Office visit Yvonne Cassidy MD 09/06/2014 Nurse visit Yvonne Cassidy MD 08/28/2014 Hospital Chauncey Hogan MD 08/28/2014 Hospital Joe Thomas MD 08/23/2014 Nurse visit Yvonne Cassidy MD 08/22/2014 Surgery Joe Thomas MD 08/16/2014 Nurse visit Yvonne Cassidy MD 08/07/2014 Nurse visit Yvonne Cassidy MD 08/01/2014 Nurse visit Jessie Mock TELERADIOLOGIST 07/25/2014 Nurse visit Nidia Darby TELERADIOLOGIST 07/16/2014 Nurse visit Yvonne Cassidy MD 07/09/2014 [...] Cassidy MD 03/20/2014 Nurse visit Jessie Mock TELERADIOLOGIST 03/13/2014 Nurse visit Dotne Hastings TELERADIOLOGIST 03/07/2014 Nurse visit Yvonne Cassidy MD 02/27/2014 Nurse visit Jessie Mock TELERADIOLOGIST 02/20/2014 Nurse visit Donte Hastings TELERADIOLOGIST 02/13/2014 Nurse visit Donte Hastings TELERADIOLOGIST 02/13/2014 Procedures Joe Thomas MD 02/07/2014 Office visit Joe Thomas MD 02/06/2014 Nurse visit Yvonne Cassidy MD 01/17/2014 Nurse visit Nidia Darby TELERADIOLOGIST 01/10/2014 Nurse visit Yvonne Cassidy MD 01/02/2014 Nurse visit Yvonne Cassidy MD 12/26/2013 Nurse visit Yvonne Cassidy MD 12/18/2013 Nurse visit Yvonne Cassidy MD 12/12/2013 Nurse visit Yvonne Cassidy MD 12/05/2013 Nurse visit Yvonne Cassidy MD 11/28/2013 Nurse visit Yvonne Cassidy MD 11/21/2013 Nurse visit Yvonne Cassidy MD 11/14/2013 Nurse visit Yvonne Cassidy MD 11/07/2013 Nurse visit Nidia Darby TELERADIOLOGIST 10/31/2013 Nurse visit Nidia Darby TELERADIOLOGIST 10/25/2013 Nurse visit Nidia Darby TELERADIOLOGIST 10/18/2013 Voided Nidia Darby TELERADIOLOGIST 10/10/2013 Voided Yvonne Cassidy MD 10/03/2013 Nurse [...] Mart MD 04/18/2013 Nurse visit Nidia Darby TELERADIOLOGIST 04/04/2013 Nurse visit Nidia Darby TELERADIOLOGIST 03/28/2013 Nurse visit Nidia Darby TELERADIOLOGIST 03/21/2013 Nurse visit Nidia Darby TELERADIOLOGIST 03/13/2013 Nurse visit Nidia Darby TELERADIOLOGIST 03/09/2013 Nurse visit Nidia Darby TELERADIOLOGIST 03/02/2013 Nurse visit Nidia Darby TELERADIOLOGIST 02/21/2013 Nurse visit Nidia Darby TELERADIOLOGIST 02/13/2013 Office visit Nidia Darby TELERADIOLOGIST 02/06/2013 Nurse visit Bria Mart MD 01/31/2013 [...] MD 10/04/2012 Nurse visit Nidia NZafar Darby TELERADIOLOGIST 09/27/2012 Nurse visit Bria Mart MD 09/22/2012 Nurse visit Bria Mart MD 09/12/2012 Nurse visit Bria Mart MD 09/05/2012 Nurse visit Francisco J Jesus DO 08/31/2012 Nurse visit Bria Mart MD 08/23/2012 Nurse visit Bria Mart MD 08/16/2012 Nurse visit Bria Mart MD 08/10/2012 Nurse visit Bria Mart MD 08/03/2012 Nurse visit Bria Mart MD 07/26/2012 Nurse visit Bria Mrat MD 07/13/2012 Nurse visit Bria Mart MD 07/05/2012 Nurse visit Bria Mart MD 06/21/2012 Nurse visit Bria Mart MD 06/14/2012 Nurse visit Bria Mart MD 06/07/2012 Nurse visit Nidia Darby TELERADIOLOGIST 06/07/2012 Voided Francisco J Jesus 06/01/2012 Office visit Bria Mrat MD 05/24/2012 Nurse visit Bria Mart MD [...] Mart MD 09/08/2011 Office visit Jessie Mock TELERADIOLOGIST 09/01/2011 Nurse visit Bria Mart MD 08/21/2011 [...]
--- OUTSIDE RECORDS SUMMARY | 2017-05-06 15:04 | XMS REPORT ---
Author Author Yvonne Cassidy Organization [facility] Address [address] [place], [place] [id number] Care Team Providers Care Vice President Process Name Role Phone Yvonne Cassidy PCP Yvonne Cassidy PreferredProvider Allergies and Adverse Reactions Name Reaction Notes Ceftin rash erythromycin rash PENICILLINS rash Plan of Treatment Planned Activity Comments Planned Date Planned Time Plan/Goal Allergy Injection Multiple 04/18/2015 12:00 AM Allergy Injection Multiple 03/27/2015 12:00 AM Allergy Injection Multiple 07/22/2015 12:00 AM Allergy Injection Multiple 11/11/2015 12:00 AM Thyroid stimulating hormone (TSH) 02/24/2017 12:00 AM T4 02/24/2017 12:00 AM Allergy Injection Multiple 09/30/2012 12:00 [...] 12:00 AM Depo-Medrol 40 mg [facility]#[id number] Reviewed 03/02/2016 12:00 AM IMMUNOTHERAPY INJECTIONS Reviewed [...] 12:00 AM Depo-Medrol 40 mg [facility]#[id number] Reviewed 12/01/2011 12:00 AM IMMUNOTHERAPY INJECTIONS Reviewed [...] Reviewed 02/23/2017 12:00 AM IMMUNOTHERAPY INJECTIONS Reviewed 03/29/2012 12:00 [...] AM Decadron, Per 1 Mg [facility]# [address]-89 Reviewed 02/13/2013 12:00 AM Depo-Medrol, Per 80 Mg [facility]#6320-1488-13 Reviewed 06/05/2013 12:00 AM MAMMOGRAM SCREENING Reviewed [...] CVX Influenza 06/02/2010 sanofi pasteur PMC Fluzone [id number] Intramuscular Left Deltoid 06/02/2010 02/25/2010 999 Influenza 05/09/2015 sanofi pasteur PMC Fluzone [id number] Intramuscular Left Deltoid 05/09/2015 02/22/2015 141 Pneumococcal 06/29/2016 Kjkrq-Elvkld-HsbafeqPratyesha [facility] Prevnar 13 [id number] Intramuscular Right Deltoid 06/29/2016 09/14/2012 133 Zostavax [...] 4:13PM Hypothyroidism, Acquired Feb 24 2017 11:17AM Payers Insurance Name Company Name Plan Name Plan Number Policy Number Policy Group Number Start Date [facility] [id number] June [facility] Self Insurance Fund *INVALID State Self Insurance [id number] N/A Comp [place] [id number] Wednesday, 2015 History of Encounters Visit Date Visit Type Provider 02/23/2017 Nurse visit Yvonne Cassidy MD 02/17/2017 Nurse visit Yvonne Cassidy MD 02/09/2017 Nurse visit Yvonne Cassidy MD 02/01/2017 Nurse visit Yvonne Cassidy MD 01/25/2017 Nurse visit Yvonne Cassidy MD 01/12/2017 Nurse visit Yvonne Cassidy MD 01/05/2017 Nurse visit Yvonne Cassidy MD 12/30/2016 Nurse visit Yvonne Cassidy MD 12/22/2016 Nurse visit Yvonne Cassidy MD 12/08/2016 Nurse visit Donte Hastings VOCATIONAL NURSE 12/02/2016 Nurse visit Yvonne Cassidy MD 11/16/2016 Nurse visit Yvonne Cassidy MD 11/10/2016 Nurse visit Yvonne Cassidy MD 11/02/2016 Nurse visit Donte Hastings VOCATIONAL NURSE 10/28/2016 Nurse visit Yvonne Cassidy MD 10/06/2016 [...] Cassidy MD 07/14/2016 Nurse visit Donte Hastings VOCATIONAL NURSE 07/06/2016 Nurse visit Yvonne Cassidy MD 06/29/2016 Nurse visit Yvonne Cassidy MD 06/24/2016 Nurse visit Yvonne Cassidy MD 06/16/2016 Office visit Yvonne Cassidy MD 06/14/2016 [facility] [place] MD 06/09/2016 Nurse visit Yvonne Cassidy MD 06/02/2016 Office visit 06/02/2016 Office visit Karolyn Millan VOCATIONAL NURSE 06/01/2016 Nurse visit Yvonne Cassidy MD 05/27/2016 Nurse visit Yvonne Cassidy MD 05/11/2016 Nurse visit Yvonne Cassidy MD 05/05/2016 Nurse visit Yvonne Cassidy MD 04/29/2016 Nurse visit Yvonne Cassidy MD 04/23/2016 Office visit Jessie Mock VOCATIONAL NURSE 04/13/2016 Nurse visit Yvonne Cassidy MD 04/07/2016 Nurse visit Yvonne Cassidy MD 04/01/2016 Office visit Jessie Mock VOCATIONAL NURSE 03/26/2016 Nurse visit Yvonne Cassidy MD 03/17/2016 Nurse visit Yvonne Cassidy MD 03/11/2016 Nurse visit Yvonne Cassidy MD 03/04/2016 Office visit Jessie Mock VOCATIONAL NURSE 03/02/2016 Nurse visit Yvonne Cassidy MD 02/19/2016 Nurse visit Yvonne Cassidy MD 02/12/2016 Office visit Jessie Mock VOCATIONAL NURSE 02/03/2016 Nurse visit Yvonne Cassidy MD 01/27/2016 Nurse visit Yvonne Cassidy MD 01/15/2016 Nurse visit Yvonne Cassidy MD 01/08/2016 Office visit Jessie Mock VOCATIONAL NURSE 12/25/2015 Nurse visit Yvonne Cassidy MD 12/09/2015 Nurse visit Yvonne Cassidy MD 12/02/2015 Nurse visit Yvonne Cassidy MD 11/29/2015 Nurse visit Donte Hastings VOCATIONAL NURSE 11/28/2015 Nurse visit Jessie Mock VOCATIONAL NURSE 11/27/2015 Office visit Jessie Mock VOCATIONAL NURSE 11/25/2015 Office visit Donte Hastings VOCATIONAL NURSE 11/18/2015 Nurse visit Donte Hastings VOCATIONAL NURSE 11/11/2015 Nurse visit Jessie Nish VOCATIONAL NURSE 11/04/2015 Nurse visit Donte Darling VOCATIONAL NURSE 10/29/2015 Office visit Jessie Mock VOCATIONAL NURSE 10/28/2015 Nurse visit Jessie Mock VOCATIONAL NURSE 10/21/2015 Nurse visit Glenn Tejeda MD 10/15/2015 Nurse visit Francisco J Jesus DO 10/09/2015 Nurse visit Glenn Tejeda MD 10/02/2015 Office visit April Atkinson VOCATIONAL NURSE 10/01/2015 Nurse visit Jessie Mock VOCATIONAL NURSE 09/11/2015 Nurse visit Yvonne Cassidy MD 09/05/2015 [...] Office visit 05/29/2015 Office visit Karolyn Millan VOCATIONAL NURSE 05/29/2015 Nurse visit Yvonne Cassidy MD 05/14/2015 Nurse visit Francisco J Jesus DO 05/09/2015 Nurse visit Yvonne Cassidy MD 04/30/2015 Nurse visit Yvonne Cassidy MD 04/23/2015 Nurse visit Yvonne Cassidy MD 04/18/2015 Nurse visit Nidia Darby VOCATIONAL NURSE 04/09/2015 Nurse visit Yvonne Cassidy MD 04/01/2015 Nurse visit Yvonne Cassidy MD 03/27/[address] Cody Horvath MD 03/25/2015 [facility] [place] MD 03/19/2015 Nurse visit Yvonne Cassidy MD 03/19/2015 Office visit Nidia Darby VOCATIONAL NURSE 03/04/2015 Nurse visit Yvonne Cassidy MD 02/25/2015 [...] Office visit 12/31/2014 Office visit Karolyn Millan VOCATIONAL NURSE 12/24/2014 Nurse visit Yvonne Cassidy MD 12/17/2014 Nurse visit Yvonne Cassidy MD 12/13/2014 Nurse visit Yvonne Cassidy MD 11/28/2014 Nurse visit Yvonne Cassidy MD 11/19/2014 Nurse visit Yvonne Cassidy MD 11/12/2014 Nurse visit Yvonne Cassidy MD 11/05/2014 Nurse visit Yvonne Cassidy MD 11/05/2014 [facility] [place] MD 10/29/2014 Nurse visit Yvonne Cassidy MD 10/24/2014 Nurse visit Yvonne Cassidy MD 10/15/2014 Nurse visit Yvonne Cassidy MD 10/11/2014 Office visit Karolyn Millan VOCATIONAL NURSE 10/09/2014 Nurse visit Yvonne Cassidy MD 10/04/2014 Nurse visit Yvonne Cassidy MD 09/19/2014 Surgery Karolyn Millan VOCATIONAL NURSE 09/13/2014 Office visit Yvonne Cassidy MD 09/06/2014 Nurse visit Yvonne Cassidy MD 08/28/2014 [facility] Chauncey Hogan MD 08/28/2014 [facility] Joe Thomas MD 08/23/2014 Nurse visit Yvonne Cassidy MD 08/22/2014 Surgery Joe Thomas MD 08/16/2014 Nurse visit Yvonne Cassidy MD 08/07/2014 Nurse visit Yvonne Cassidy MD 08/01/2014 Nurse visit Jessie Mock VOCATIONAL NURSE 07/25/2014 Nurse visit Nidia Darby VOCATIONAL NURSE 07/16/2014 Nurse visit Yvonne Cassidy MD 07/09/2014 [...] Cassidy MD 03/20/2014 Nurse visit Jessie Mock VOCATIONAL NURSE 03/13/2014 Nurse visit Donte Hastings VOCATIONAL NURSE 03/07/2014 Nurse visit Yvonne Cassidy MD 02/27/2014 Nurse visit Jessie Mock VOCATIONAL NURSE 02/20/2014 Nurse visit Donte Hastings VOCATIONAL NURSE 02/13/2014 Nurse visit Donte Hastings VOCATIONAL NURSE 02/13/2014 Procedures Joe Thomas MD 02/07/2014 Office visit Joe Thomas MD 02/06/2014 Nurse visit Yvonne Cassidy MD 01/17/2014 Nurse visit Nidia Darby VOCATIONAL NURSE 01/10/2014 Nurse visit Yvonne Cassidy MD 01/02/2014 Nurse visit Yvonne Cassidy MD 12/26/2013 Nurse visit Yvonne Cassidy MD 12/18/2013 Nurse visit Yvonne Cassidy MD 12/12/2013 Nurse visit Yvonne Cassidy MD 12/05/2013 Nurse visit Yvonne Cassidy MD 11/28/2013 Nurse visit Yvonne Cassidy MD 11/21/2013 Nurse visit Yvonne Cassidy MD 11/14/2013 Nurse visit Yvonne Cassidy MD 11/07/2013 Nurse visit Nidia Darby VOCATIONAL NURSE 10/31/2013 Nurse visit Nidia Darby VOCATIONAL NURSE 10/25/2013 Nurse visit Nidia Darby VOCATIONAL NURSE 10/18/2013 Voided Nidia Darby VOCATIONAL NURSE 10/10/2013 Voided Yvonne Cassidy MD 10/03/2013 Nurse [...] visit Yvonne Cassidy MD 06/07/2013 Office visit oJe Thomas MD 06/07/2013 Nurse visit Bria Mart MD 06/02/2013 Office visit Joe Thomas MD 06/01/2013 Office visit Joe Thomas MD 05/30/2013 Nurse visit Bria Mart MD 05/23/2013 Nurse visit Bria Mart MD 05/18/2013 Office visit Joe Thomas MD 05/15/2013 Nurse visit Bria Mart MD 05/09/2013 Nurse visit Bria Mart MD 05/01/2013 Nurse visit Bria Mart MD 04/18/2013 Nurse visit Nidia Darby VOCATIONAL NURSE 04/04/2013 Nurse visit Nidia Darby VOCATIONAL NURSE 03/28/2013 Nurse visit Nidia Darby VOCATIONAL NURSE 03/21/2013 Nurse visit Nidia Darby VOCATIONAL NURSE 03/13/2013 Nurse visit Nidia Darby VOCATIONAL NURSE 03/09/2013 Nurse visit Nidia Darby VOCATIONAL NURSE 03/02/2013 Nurse visit Nidia Darby VOCATIONAL NURSE 02/21/2013 Nurse visit Nidia Darby VOCATIONAL NURSE 02/13/2013 Office visit Nidia Darby VOCATIONAL NURSE 02/06/2013 Nurse visit Bria Mart MD 01/31/2013 [...] Mart MD 10/04/2012 Nurse visit Nidia Darby VOCATIONAL NURSE 09/27/2012 Nurse visit Bria Mart MD 09/22/2012 [...] Mart MD 06/07/2012 Nurse visit Nidia Darby VOCATIONAL NURSE 06/07/2012 Voided Francisco J Jesus DO 06/01/2012 [...] Mart MD 09/08/2011 Office visit Jessie Mock VOCATIONAL NURSE 09/01/2011 Nurse visit Bria Mrat MD 08/21/2011 Office visit Bria Mart MD 08/12/2011 Nurse visit Bria Mrat MD 08/06/2011 Office visit Bria Mart MD [...]
--- OUTSIDE RECORDS SUMMARY | 2017-05-06 15:06 | XMS REPORT ---
Author Author Yvonne Cassidy Organization [facility] Address [address] [place], [place] [id number] Care Team Providers Care Religion Instructor Name Role Phone Yvonne Cassidy PCP Allergies and Adverse Reactions Name Reaction Notes Ceftin rash Erythromycin rash PENICILLINS rash Plan of Treatment Planned Activity Comments Planned Date Planned Time Plan/Goal MAMMOGRAM BOTH BREASTS 12/31/2014 12:00 AM Breast ultrasonography 12/31/2014 12:00 AM Medications Active Name Start [...] BILI 0.50 mg/dLCALCIUM 10.10 mg/dLeGFR >60 mL/min/1.73 [id number] 10.0 secsINR 1.0 PTT 28.20 secs 08/28/2014 [...] CVX Influenza 06/02/2010 sanofi pasteur PMC Fluzone [id number] Intramuscular Left Deltoid 06/02/2010 02/25/2010 999 History [...] to other allergen Dec 31 2014 4:51PM Payers Insurance Name Company Name Plan Name Plan Number Policy Number Policy Group Number Start Date [facility] [id number] [place] Self Insurance [id number] N /A History of Encounters Visit Date Visit Type Provider 12/31/2014 Office visit Karolyn Millan HARP ACTION ASSEMBLER 12/31/2014 Nurse visit Yvonne Cassidy MD 12/24/2014 [...] Cassidy MD 10/11/2014 Office visit Karolyn Millan HARP ACTION ASSEMBLER 10/09/2014 Nurse visit Yvonne Cassidy MD 10/04/2014 Nurse visit Yvonne Cassidy MD 09/19/2014 Surgery Karolyn Millan HARP ACTION ASSEMBLER 09/13/2014 Office visit Yvonne Cassidy MD 09/06/2014 Nurse visit Yvonne Cassidy MD 08/28/2014 Hospital Joe Thomas MD 08/28/2014 [facility] Chauncey Hogan MD 08/23/2014 Nurse visit Yvonne Cassidy MD 08/22/2014 Surgery Joe Thomas MD 08/16/2014 Nurse visit Yvonne Cassidy MD 08/07/2014 Nurse visit Yvonne Cassidy MD 08/01/2014 Nurse visit Jessie Mock HARP ACTION ASSEMBLER 07/25/2014 Nurse visit Nidia Darby HARP ACTION ASSEMBLER 07/16/2014 Nurse visit Yvonne Cassidy MD 07/09/2014 [...] Cassidy MD 03/20/2014 Nurse visit Jessie Mock HARP ACTION ASSEMBLER 03/13/2014 Nurse visit Donte Hastings HARP ACTION ASSEMBLER 03/07/2014 Nurse visit Yvonne Cassidy MD 02/27/2014 Nurse visit Jessie Mock HARP ACTION ASSEMBLER 02/20/2014 Nurse visit Donte Hastings HARP ACTION ASSEMBLER 02/13/2014 Procedures Joe Thomas MD 02/13/2014 Nurse visit Donte Hastings HARP ACTION ASSEMBLER 02/07/2014 Office visit Joe Thomas MD 02/06/2014 Nurse visit Yvonne Cassidy MD 01/17/2014 Nurse visit Nidia Darby HARP ACTION ASSEMBLER 01/10/2014 Nurse visit Yvonne Cassidy MD 01/02/2014 Nurse visit Yvonne Cassidy MD 12/26/2013 Nurse visit Yvonne Cassidy MD 12/18/2013 Nurse visit Yvonne Cassidy MD 12/12/2013 Nurse visit Yvonne Cassidy MD 12/05/2013 Nurse visit Yvonne Cassidy MD 11/28/2013 Nurse visit Yvonne Cassidy MD 11/21/2013 Nurse visit Yvonne Cassidy MD 11/14/2013 Nurse visit Yvonne Cassidy MD 11/07/2013 Nurse visit Nidia Darby HARP ACTION ASSEMBLER 10/31/2013 Nurse visit Nidia Darby HARP ACTION ASSEMBLER 10/25/2013 Nurse visit Nidia Darby HARP ACTION ASSEMBLER 10/18/2013 Voided Nidia Darby HARP ACTION ASSEMBLER 10/10/2013 Voided Yvonne Cassidy MD 10/03/2013 Nurse [...] Mart MD 04/18/2013 Nurse visit Nidia Darby HARP ACTION ASSEMBLER 04/04/2013 Nurse visit Nidia Darby HARP ACTION ASSEMBLER 03/28/2013 Nurse visit Nidia Darby HARP ACTION ASSEMBLER 03/21/2013 Nurse visit Nidia Darby HARP ACTION ASSEMBLER 03/13/2013 Nurse visit Nidia Darby HARP ACTION ASSEMBLER 03/09/2013 Nurse visit Nidia Darby HARP ACTION ASSEMBLER 03/02/2013 Nurse visit Nidia Darby HARP ACTION ASSEMBLER 02/21/2013 Nurse visit Nidia Darby HARP ACTION ASSEMBLER 02/13/2013 Office visit Nidia Darby HARP ACTION ASSEMBLER 02/06/2013 Nurse visit Bria Mart MD 01/31/2013 [...] Mart MD 10/04/2012 Nurse visit Nidia Darby HARP ACTION ASSEMBLER 09/27/2012 Nurse visit Bria Mart MD 09/22/2012 [...] Jesus DO 06/07/2012 Nurse visit Nidia Darby HARP ACTION ASSEMBLER 06/01/2012 Office visit Bria Mart MD 05/24/2012 [...] Mart MD 09/08/2011 Office visit Jessie Mock HARP ACTION ASSEMBLER 09/08/2011 Nurse visit Bria Mart MD 09/01/2011 [...]
--- OUTSIDE RECORDS SUMMARY | 2017-05-06 15:08 | XMS REPORT ---
Author Author Yvonne Cassidy Organization [facility] Address [address] [place], [place] [id number] Care Team Providers Care Nurses' Registry Director Name Role Phone Yvonne Cassidy PCP Allergies [...] BILI 0.50 mg/dLCALCIUM 10.10 mg/dLeGFR >60 mL/min/1.73 [id number] 10.0 secsINR 1.0 PTT 28.20 secs 08/28/2014 [...] CVX Influenza 06/02/2010 sanofi pasteur PMC Fluzone [id number] Intramuscular Left Deltoid 06/02/2010 02/25/2010 999 History [...] to other allergen Dec 13 2014 4:20PM Payers Insurance Name Company Name Plan Name Plan Number Policy Number Policy Group Number Start Date [facility] [id number] [place] Self [place] *INVALID State Self Insurance [id number] N /A History of Encounters Visit Date Visit Type Provider 12/13/2014 Nurse visit Yvonne Cassidy MD 11/28/2014 Nurse visit Yvonne Cassidy MD 11/19/2014 Nurse visit Yvonne Casisdy MD 11/12/2014 Nurse visit Yvonne Cassidy MD 11/05/2014 Nurse visit Yvonne Cassidy MD 10/29/2014 Nurse visit Yvonne Cassidy MD 10/24/2014 Nurse visit Yvonne Cassidy MD 10/15/2014 Nurse visit Yvonne Cassidy MD 10/11/2014 Office visit Karolyn Millan APPLICATION SPEC 10/09/2014 Nurse visit Yvonne Cassidy MD 10/04/2014 Nurse visit Yvonne Cassidy MD 09/19/2014 Surgery Karolyn Millan APPLICATION SPEC 09/13/2014 Office visit Yvonne Cassidy MD 09/06/2014 Nurse visit Yvonne Cassidy MD 08/28/2014 [facility] Joe Thomas MD 08/28/2014 [facility] Chauncey Hogan MD 08/23/2014 Nurse visit Yvonne Cassidy MD 08/22/2014 Surgery Joe Thomas MD 08/16/2014 Nurse visit Yvonne Cassidy MD 08/07/2014 Nurse visit Yvonne Cassidy MD 08/01/2014 Nurse visit Jessie Mock APPLICATION SPEC 07/25/2014 Nurse visit Nidia Darby APPLICATION SPEC 07/16/2014 Nurse visit Yvonne Cassidy MD 07/09/2014 [...] Cassidy MD 03/20/2014 Nurse visit Jessie Mock APPLICATION SPEC 03/13/2014 Nurse visit Donte Hastings APPLICATION SPEC 03/07/2014 Nurse visit Yvonne Cassidy MD 02/27/2014 Nurse visit Jessie Mock APPLICATION SPEC 02/20/2014 Nurse visit Donte Hastings APPLICATION SPEC 02/13/2014 Procedures Joe Thomas MD 02/13/2014 Nurse visit Donte Hastings APPLICATION SPEC 02/07/2014 Office visit Joe Thomas MD 02/06/2014 Nurse visit Yvonne Cassidy MD 01/17/2014 Nurse visit Nidia Darby APPLICATION SPEC 01/10/2014 Nurse visit Yvonne Cassidy MD 01/02/2014 Nurse visit Yvonne Cassidy MD 12/26/2013 Nurse visit Yvonne Cassidy MD 12/18/2013 Nurse visit Yvonne Cassidy MD 12/12/2013 Nurse visit Yvonne Cassidy MD 12/05/2013 Nurse visit Yvonne Cassidy MD 11/28/2013 Nurse visit Yvonne Cassidy MD 11/21/2013 Nurse visit Yvonne Cassidy MD 11/14/2013 Nurse visit Yvonne Cassidy MD 11/07/2013 Nurse visit Nidia Darby APPLICATION SPEC 10/31/2013 Nurse visit Nidia Darby APPLICATION SPEC 10/25/2013 Nurse visit Nidia Darby APPLICATION SPEC 10/18/2013 Voided Nidia Darby APPLICATION SPEC 10/10/2013 Voided Yvonne Cassidy MD 10/03/2013 Nurse [...] Bria Mart MD 04/18/2013 Nurse visit Nidia Swartz Wilner APPLICATION SPEC 04/04/2013 Nurse visit Nidia Darby APPLICATION SPEC 03/28/2013 Nurse visit Nidia GonzalesZafar Wilner APPLICATION SPEC 03/21/2013 Nurse visit Nidia GonzalesZafar Wilner APPLICATION SPEC 03/13/2013 Nurse visit Nidia Swartz Wilner APPLICATION SPEC 03/09/2013 Nurse visit Nidia GonzalesZafar Darby APPLICATION SPEC 03/02/2013 Nurse visit Nidia GonzalesZafar Darby APPLICATION SPEC 02/21/2013 Nurse visit Nidia Sheridan Darby APPLICATION SPEC 02/13/2013 Office visit Nidia Darby APPLICATION SPEC 02/06/2013 Nurse visit Bria Mart MD 01/31/2013 [...] Mart MD 10/04/2012 Nurse visit Nidia Darby APPLICATION SPEC 09/27/2012 Nurse visit Bira Mart MD 09/22/2012 Nurse visit Bria Mart [...] Bria Mart MD 06/07/2012 Voided Francisco J Danielsonnola ISSA 06/07/2012 Nurse visit Nidia Sheridan Darby APRN 06/01/2012 Office visit Bria Mart [...] Bria Mart MD 12/22/2011 Nurse visit Bria Matr MD 12/18/2011 Nurse visit Bria Mart MD [...] Mart MD 09/08/2011 Office visit Jessie Mock APPLICATION SPEC 09/08/2011 Nurse visit Bria Mart MD 09/01/2011 [...]
--- OUTSIDE RECORDS SUMMARY | 2017-05-06 15:12 | XMS REPORT ---
Author Author Francisco J Jesus [facility] Address [address] [place], [place] [id number] Care Team Providers Care Health Equipment Servicer Name Role Phone Francisco J Jesus PCP Unavailable Yvonne Cassidy PreferredProvider Allergies and [...] Reviewed 08/21/2011 12:00 AM Depo-Medrol 40 mg [facility]#[id number] Reviewed 03/02/2016 12:00 AM IMMUNOTHERAPY INJECTIONS Reviewed [...] Reviewed 11/27/2011 12:00 AM Depo-Medrol 40 mg [facility]#[id number] Reviewed 12/01/2011 12:00 AM IMMUNOTHERAPY INJECTIONS Reviewed 08/25/2016 12:00 AM IMMUNOTHERAPY INJECTIONS Reviewed 09/02/2016 12:00 AM IMMUNOTHERAPY INJECTIONS Reviewed 12/08/2011 12:00 AM IMMUNOTHERAPY INJECTIONS Reviewed 09/08/2016 12:00 AM IMMUNOTHERAPY INJECTIONS Reviewed 12/18/2011 12:00 [...] 02/13/2013 12:00 AM Decadron, Per 1 Mg [facility]# [address]-56 Reviewed 02/13/2013 12:00 AM Depo-Medrol, Per 80 Mg [facility]#9056-0625-99 Reviewed 06/05/2013 12:00 AM MAMMOGRAM SCREENING Reviewed [...] CVX Influenza 06/02/2010 sanofi pasteur PMC Fluzone [id number] Intramuscular Left Deltoid 06/02/2010 02/25/2010 999 Influenza 05/09/2015 sanofi pasteur PMC Fluzone [id number] Intramuscular Left Deltoid 05/09/2015 02/22/2015 141 Pneumococcal 06/29/2016 [facility] Prevnar 13 [id number] Intramuscular Right Deltoid 06/29/2016 09/14/2012 133 History [...] to other allergen Sep 08 2016 4:09PM Payers Insurance Name Company Name Plan Name Plan Number Policy Number Policy Group Number Start Date [employer] [place] [id number] June [facility] Self Insurance Fund *INVALID State Self Insurance [id number] N/A Comp [place] [id number] Wednesday, 2015 History of Encounters Visit Date Visit Type Provider 09/08/2016 Nurse visit Francisco J Jesus DO 09/02/2016 Nurse visit Yvonne Cassidy MD 08/25/2016 Nurse visit Yvonne Cassidy MD 08/19/2016 Nurse visit Yvonne Cassidy MD 08/13/2016 Nurse visit Yvonne Cassidy MD 08/04/2016 Nurse visit Yvonne Cassidy MD 07/29/2016 Nurse visit Yvonne Cassidy MD 07/14/2016 Nurse visit Donte Hastings STONE SANDBLASTER 07/06/2016 Nurse visit Yvonne Cassidy MD 06/29/2016 Nurse visit Yvonne Cassidy MD 06/24/2016 Nurse visit Yvonne Cassidy MD 06/16/2016 Office visit Yvonne Cassidy MD 06/14/2016 [facility] Alexander Park MD 06/09/2016 Nurse visit Yvonne Cassidy MD 06/02/2016 Office visit 06/02/2016 Office visit Karolyn Millan STONE SANDBLASTER 06/01/2016 Nurse visit Yvonne Cassidy MD 05/27/2016 Nurse visit Yvonne Cassidy MD 05/11/2016 Nurse visit Yvonne Cassidy MD 05/05/2016 Nurse visit Yvonne Cassidy MD 04/29/2016 Nurse visit Yvonne Cassidy MD 04/23/2016 Office visit Jessie Mock STONE SANDBLASTER 04/13/2016 Nurse visit Yvonne Cassidy MD 04/07/2016 Nurse visit Yvonne Cassidy MD 04/01/2016 Office visit Jessie Mock STONE SANDBLASTER 03/26/2016 Nurse visit Yvonne Cassidy MD 03/17/2016 Nurse visit Yvonne Cassidy MD 03/11/2016 Nurse visit Yvonne Cassidy MD 03/04/2016 Office visit Jessie Mock STONE SANDBLASTER 03/02/2016 Nurse visit Yvonne Cassidy MD 02/19/2016 Nurse visit Yvonne Cassidy MD 02/12/2016 Office visit Jessie Mock STONE SANDBLASTER 02/03/2016 Nurse visit Yvonne Cassidy MD 01/27/2016 Nurse visit Yvonne Cassidy MD 01/15/2016 Nurse visit Yvonne Cassidy MD 01/08/2016 Office visit Jessie Mock STONE SANDBLASTER 12/25/2015 Nurse visit Yvonne Cassidy MD 12/09/2015 Nurse visit Yvonne Cassidy MD 12/02/2015 Nurse visit Yvonne Cassidy MD 11/29/2015 Nurse visit Donte Gerberran STONE SANDBLASTER 11/28/2015 Nurse visit Jessie Mock STONE SANDBLASTER 11/27/2015 Office visit Jessie Mock STONE SANDBLASTER 11/25/2015 Office visit Donte Darling STONE SANDBLASTER 11/18/2015 Nurse visit Donte Gerberran STONE SANDBLASTER 11/11/2015 Nurse visit Jessie Mock STONE SANDBLASTER 11/04/2015 Nurse visit Donte Hastings STONE SANDBLASTER 10/29/2015 Office visit Jessie Mock STONE SANDBLASTER 10/28/2015 Nurse visit Jessie Mock STONE SANDBLASTER 10/21/2015 Nurse visit Glenn Tejeda MD 10/15/2015 Nurse visit Francisco J Jesus DO 10/09/2015 Nurse visit Glenn Tejeda MD 10/02/2015 Office visit April Atkinson STONE SANDBLASTER 10/01/2015 Nurse visit Jessie Nish STONE SANDBLASTER 09/11/2015 Nurse visit Yvonne Cassidy MD 09/05/2015 [...] Office visit 05/29/2015 Office visit Karolyn Millan STONE SANDBLASTER 05/29/2015 Nurse visit Yvonne Cassidy MD 05/14/2015 Nurse visit Francisco J Jesus DO 05/09/2015 Nurse visit Yvonne Cassidy MD 04/30/2015 Nurse visit Yvonne Cassidy MD 04/23/2015 Nurse visit Yvonne Cassidy MD 04/18/2015 Nurse visit Nidia Daryb STONE SANDBLASTER 04/09/2015 Nurse visit Yvonne Cassidy MD 04/01/2015 Nurse visit Yvonne Cassidy MD 03/27/[address] Cody Horvath MD 03/25/2015 [facility] Alexander Park MD 03/19/2015 Nurse visit Yvonne Cassidy MD 03/19/2015 Office visit Nidia Darby STONE SANDBLASTER 03/04/2015 Nurse visit Yvonne Cassidy MD 02/25/2015 [...] Office visit 12/31/2014 Office visit Karolyn Millan STONE SANDBLASTER 12/24/2014 Nurse visit Yvonne Cassidy MD 12/17/2014 Nurse visit Yvonne Cassidy MD 12/13/2014 Nurse visit Yvonne Cassidy MD 11/28/2014 Nurse visit Yvonne Cassidy MD 11/19/2014 Nurse visit Yvonne Cassidy MD 11/12/2014 Nurse visit Yvonne Cassidy MD 11/05/2014 Nurse visit Yvonne Cassidy MD 11/05/2014 [facility] Alexander Park MD 10/29/2014 Nurse visit Yvonne Cassidy MD 10/24/2014 Nurse visit Yvonne Cassidy MD 10/15/2014 Nurse visit Yvonne Cassidy MD 10/11/2014 Office visit Karolyn Millan STONE SANDBLASTER 10/09/2014 Nurse visit Yvonne Cassidy MD 10/04/2014 Nurse visit Yvonne Cassidy MD 09/19/2014 Surgery Karolyn Millan STONE SANDBLASTER 09/13/2014 Office visit Yvonne Cassidy MD 09/06/2014 Nurse visit Yvonne Cassidy MD 08/28/2014 [facility] Chauncey Hogan MD 08/28/2014 [facility] Joe Thomas MD 08/23/2014 Nurse visit Yvonne Cassidy MD 08/22/2014 Surgery Joe Thomas MD 08/16/2014 Nurse visit Yvonne Cassidy MD 08/07/2014 Nurse visit Yvonne Cassidy MD 08/01/2014 Nurse visit Jessie Mock STONE SANDBLASTER 07/25/2014 Nurse visit Nidia Darby STONE SANDBLASTER 07/16/2014 Nurse visit Yvonne Cassidy MD 07/09/2014 [...] Cassidy MD 03/20/2014 Nurse visit Jessie Mock STONE SANDBLASTER 03/13/2014 Nurse visit Donte Hastings STONE SANDBLASTER 03/07/2014 Nurse visit Yvonne Cassidy MD 02/27/2014 Nurse visit Jessie Mock STONE SANDBLASTER 02/20/2014 Nurse visit Donte Hastings STONE SANDBLASTER 02/13/2014 Nurse visit Donte Hastings STONE SANDBLASTER 02/13/2014 Procedures Joe Thomas MD 02/07/2014 Office visit Joe Thomas MD 02/06/2014 Nurse visit Yvonne Cassidy MD 01/17/2014 Nurse visit Nidia Darby STONE SANDBLASTER 01/10/2014 Nurse visit Yvonne Cassidy MD 01/02/2014 Nurse visit Yvonne Cassidy MD 12/26/2013 Nurse visit Yvonne Cassidy MD 12/18/2013 Nurse visit Yvonne Cassidy MD 12/12/2013 Nurse visit Yvonne Cassidy MD 12/05/2013 Nurse visit Yvonne Cassidy MD 11/28/2013 Nurse visit Yvonne Cassidy MD 11/21/2013 Nurse visit Yvonne Cassidy MD 11/14/2013 Nurse visit Yvonne Cassidy MD 11/07/2013 Nurse visit Nidia Darby STONE SANDBLASTER 10/31/2013 Nurse visit Nidia Darby STONE SANDBLASTER 10/25/2013 Nurse visit Nidia Darby STONE SANDBLASTER 10/18/2013 Voided Nidia Darby STONE SANDBLASTER 10/10/2013 Voided Yvonne Cassidy MD 10/03/2013 Nurse [...] Mart MD 04/18/2013 Nurse visit Nidia Darby STONE SANDBLASTER 04/04/2013 Nurse visit Nidia Darby STONE SANDBLASTER 03/28/2013 Nurse visit Nidia Darby STONE SANDBLASTER 03/21/2013 Nurse visit Nidia Darby STONE SANDBLASTER 03/13/2013 Nurse visit Nidia Darby STONE SANDBLASTER 03/09/2013 Nurse visit Nidia Darby STONE SANDBLASTER 03/02/2013 Nurse visit Nidia Darby STONE SANDBLASTER 02/21/2013 Nurse visit Nidia Darby STONE SANDBLASTER 02/13/2013 Office visit Nidia Darby STONE SANDBLASTER 02/06/2013 Nurse visit Bria Mart MD 01/31/2013 [...] Mart MD 10/04/2012 Nurse visit Nidia Darby STONE SANDBLASTER 09/27/2012 Nurse visit Bria Mart MD 09/22/2012 [...] Mart MD 06/07/2012 Nurse visit Nidia Darby STONE SANDBLASTER 06/07/2012 Voided Francisco J Jesus DO 06/01/2012 [...] visit Bria Mart MD 11/17/2011 Nurse visit Brai Mart MD 11/10/2011 Nurse visit Bria Mart [...] Bria Mart MD 08/06/2011 Office visit Bria Matr MD 07/28/2011 Nurse visit Bria Mart MD [...]
--- OUTSIDE RECORDS SUMMARY | 2017-05-06 15:14 | XMS REPORT ---
Author Author Yvonne Cassidy [facility] Address [address] [place] [address] Care Team Providers Care Blankbook Stitching Machine Operator Name Role Phone Yvonne Cassidy PCP [...] HC BMI BSA BMI Percentile O2 Sat(%) 12/02/2015 3:06:00 PM 102 mmHg 72 mmHg [...] Returned 12/02/2015 12:00 AM IMMUNOTHERAPY INJECTIONS Reviewed 07/16/2011 12:00 AM IMMUNOTHERAPY INJECTIONS Reviewed 07/16/2011 12:00 AM IMMUNOTHERAPY INJECTIONS Reviewed 07/28/2011 12:00 AM IMMUNOTHERAPY INJECTIONS Reviewed 08/06/2011 12:00 AM THER/PROPH/DIAG INJ SC/IM Reviewed 08/06/2011 12:00 AM IMMUNOTHERAPY INJECTIONS Reviewed 08/12/2011 12:00 AM IMMUNOTHERAPY INJECTIONS Reviewed 08/21/2011 12:00 AM THER/PROPH/DIAG INJ SC/IM Reviewed 08/21/2011 12:00 AM Depo-Medrol 40 mg [place]#[id number] Reviewed 09/08/2011 12:00 AM IMMUNOTHERAPY INJECTIONS Reviewed [...] 11/27/2011 12:00 AM Depo-Medrol 40 mg [facility]#[id number] Reviewed 12/01/2011 12:00 AM IMMUNOTHERAPY INJECTIONS Reviewed [...] 12:00 AM Decadron, Per 1 Mg [facility]# [address]-89 Reviewed 02/13/2013 12:00 AM Depo-Medrol, Per 80 Mg [facility]#1807-0638-79 Reviewed 06/05/2013 12:00 AM MAMMOGRAM SCREENING Returned [...] BILI 0.50 mg/dLCALCIUM 10.10 mg/dLeGFR >60 mL/min/1.73 [id number] 10.0 secsINR 1.0 PTT 28.20 secs 08/28/2014 [...] Vis Given Vis Pub CVX Influenza 06/02/2010 [facility] [facility] PMC Fluzone [id number] Intramuscular Left Deltoid 06/02/2010 02/25/2010 999 [facility]enza [facility]/09/2015 [facility] PMC Fluzone [id number] Intramuscular Left Deltoid 05/09/2015 02/22/2015 141 History [...] to other allergen Dec 02 2015 3:07PM Payers Insurance Name Company Name Plan Name Plan Number Policy Number Policy Group Number [facility] Date [id number] June [facility] Self Insurance Fund *INVALID State Self Insurance [id number] N/A Comp [place] [id number] Wednesday, 2015 History of Encounters Visit Date Visit Type Provider 12/02/2015 Nurse visit Yvonne Cassidy MD 11/29/2015 Nurse visit Donte Hastings CLUB CONCIERGE 11/28/2015 Nurse visit Jessie Mock CLUB CONCIERGE 11/27/2015 Office visit Jessie Mock CLUB CONCIERGE 11/25/2015 Office visit Donte Hastings CLUB CONCIERGE 11/18/2015 Nurse visit Donte Hastings CLUB CONCIERGE 11/11/2015 Nurse visit Jessie Mock CLUB CONCIERGE 11/04/2015 Nurse visit Donte Hastings CLUB CONCIERGE 10/29/2015 Office visit Jessie Mock CLUB CONCIERGE 10/28/2015 Nurse visit Jessie Mock CLUB CONCIERGE 10/21/2015 Nurse visit Glenn Tejeda MD 10/15/2015 Nurse visit Francisco J Jesus DO 10/09/2015 Nurse visit Glenn Tejeda MD 10/02/2015 Office visit April Atkinson CLUB CONCIERGE 10/01/2015 Nurse visit Jessie Mock CLUB CONCIERGE 09/11/2015 Nurse visit Yvonne Cassidy MD 09/05/2015 Nurse visit Yvonne Cassidy MD 08/19/2015 Nurse visit Yvonne Cassidy MD 08/14/2015 Nurse visit Yvonne Cassidy MD 07/29/2015 Nurse visit Yvonne Cassidy MD 07/22/2015 Nurse visit Yvonne Cassidy MD 07/09/2015 Nurse visit Yvonne Cassidy MD 07/01/2015 Nurse visit Yvonne aCssidy MD 06/26/2015 Nurse visit Yvonne Cassidy MD 06/17/2015 Nurse visit Yvonne Cassidy MD 06/10/2015 Nurse visit Yvonne Cassidy MD 06/04/2015 Nurse visit Yvonne Cassidy MD 05/29/2015 Office visit 05/29/2015 Office visit Karolyn Millan CLUB CONCIERGE 05/29/2015 Nurse visit Yvonne Cassidy MD 05/14/2015 Nurse visit Francisco J Jesus DO 05/09/2015 Nurse visit Yvonne Cassidy MD 04/30/2015 Nurse visit Yvonne Cassidy MD 04/23/2015 Nurse visit Yvonne Cassidy MD 04/18/2015 Nurse visit Nidia Dabry CLUB CONCIERGE 04/09/2015 Nurse visit Yvonne Cassidy MD 04/01/2015 Nurse visit Yvonne Cassidy MD 03/27/[address] Cody Horvath MD 03/25/2015 [facility] Darin Park MD 03/19/2015 Nurse visit Yvonne Cassidy MD 03/19/2015 Office visit Nidia Darby CLUB CONCIERGE 03/04/2015 Nurse visit Yvonne Cassidy MD 02/25/2015 [...] Office visit 12/31/2014 Office visit Karolyn Millan CLUB CONCIERGE 12/24/2014 Nurse visit Yvonne Cassidy MD 12/17/2014 Nurse visit Yvonne Cassidy MD 12/13/2014 Nurse visit Yvonne Cassidy MD 11/28/2014 Nurse visit Yvonne Cassidy MD 11/19/2014 Nurse visit Yvonne Cassidy MD 11/12/2014 Nurse visit Yvonne Cassidy MD 11/05/2014 Nurse visit Yvonne Cassdiy MD 11/05/2014 [facility] Darin Park MD 10/29/2014 Nurse visit Yvonne Cassidy MD 10/24/2014 Nurse visit Yvonne Cassidy MD 10/15/2014 Nurse visit Yvonne Cassidy MD 10/11/2014 Office visit Karolyn Millan CLUB CONCIERGE 10/09/2014 Nurse visit Yvonne Cassidy MD 10/04/2014 Nurse visit Yvonne Cassidy MD 09/19/2014 Surgery Karolyn Millan CLUB CONCIERGE 09/13/2014 Office visit Yvonne Cassidy MD 09/06/2014 Nurse visit Yvonne Cassidy MD 08/28/2014 [facility] Chauncey Hogan MD 08/28/2014 [facility] Joe Thomas MD 08/23/2014 Nurse visit Yvonne Cassidy MD 08/22/2014 Surgery Joe Thomas MD 08/16/2014 Nurse visit Yvonne Cassidy MD 08/07/2014 Nurse visit Yvonne Cassidy MD 08/01/2014 Nurse visit Jessie Mock CLUB CONCIERGE 07/25/2014 Nurse visit Nidia Darby CLUB CONCIERGE 07/16/2014 Nurse visit Yvonne Cassidy MD 07/09/2014 [...] Cassidy MD 03/20/2014 Nurse visit Jessie Mock CLUB CONCIERGE 03/13/2014 Nurse visit Donte Hastings CLUB CONCIERGE 03/07/2014 Nurse visit Yvonne Cassidy MD 02/27/2014 Nurse visit Jessie Mock CLUB CONCIERGE 02/20/2014 Nurse visit Donte Hastings CLUB CONCIERGE 02/13/2014 Nurse visit Donte Hastings CLUB CONCIERGE 02/13/2014 Procedures Joe Thomas MD 02/07/2014 Office visit Joe Thomas MD 02/06/2014 Nurse visit Yvonne Cassidy MD 01/17/2014 Nurse visit Nidia Darby CLUB CONCIERGE 01/10/2014 Nurse visit Yvonne Cassidy MD 01/02/2014 Nurse visit Yvonne Cassidy MD 12/26/2013 Nurse visit Yvonne Cassidy MD 12/18/2013 Nurse visit Yvonne Cassidy MD 12/12/2013 Nurse visit Yvonne Cassidy MD 12/05/2013 Nurse visit Yvonne Cassidy MD 11/28/2013 Nurse visit Yvonne Cassidy MD 11/21/2013 Nurse visit Yvonne Cassidy MD 11/14/2013 Nurse visit Yvonne Cassidy MD 11/07/2013 Nurse visit Nidia Darby CLUB CONCIERGE 10/31/2013 Nurse visit Nidia Darby CLUB CONCIERGE 10/25/2013 Nurse visit Nidia Darby CLUB CONCIERGE 10/18/2013 Voided Nidia Darby CLUB CONCIERGE 10/10/2013 Voided Yvonne Cassidy MD 10/03/2013 Nurse [...] Mart MD 04/18/2013 Nurse visit Nidia Darby CLUB CONCIERGE 04/04/2013 Nurse visit Nidia Darby CLUB CONCIERGE 03/28/2013 Nurse visit Nidia Darby CLUB CONCIERGE 03/21/2013 Nurse visit Nidia Darby CLUB CONCIERGE 03/13/2013 Nurse visit Nidia Darby CLUB CONCIERGE 03/09/2013 Nurse visit Nidia Darby CLUB CONCIERGE 03/02/2013 Nurse visit Nidia Darby CLUB CONCIERGE 02/21/2013 Nurse visit Nidia Darby CLUB CONCIERGE 02/13/2013 Office visit Nidia GonzalesZafar Wilner CLUB CONCIERGE 02/06/2013 Nurse visit Bria Mart MD 01/31/2013 [...] MD 10/04/2012 Nurse visit Nidia Sheridan Darby CLUB CONCIERGE 09/27/2012 Nurse visit Bria Mart MD 09/22/2012 [...] Bria Mart MD 06/07/2012 Nurse visit Nidia Swartz Wilner RENON 06/07/2012 Voided Francisco J Jesus 06/01/2012 Office [...] Mart MD 09/08/2011 Office visit Jessie Mock CLUB CONCIERGE 09/01/2011 Nurse visit Bria Mart MD 08/21/2011 [...]
[2017-05-06] MEDS ORDERED: ANTACID SUSP 30 ML UDC (MYLANTA) PO ONE (15:15)
[2017-05-06] MEDS ORDERED: LIDOCAINE 2% VISCOUS 15 ML UDC PO ONE (15:15)
--- OUTSIDE RECORDS SUMMARY | 2017-05-06 15:16 | XMS REPORT ---
Author Author Yvonne Cassidy Organization [facility] Address [address] [place], [place] [address] Care Team Providers Care Leather Flesher Name Role Phone Yvonne Cassidy PCP Allergies [...] Returned 12/31/2014 12:00 AM Breast ultrasound Returned Results Summary Data and Description Results 11/07/2009 [...] BILI 0.50 mg/dLCALCIUM 10.10 mg/dLeGFR >60 mL/min/1.73 [id number] 10.0 secsINR 1.0 PTT 28.20 secs 08/28/2014 [...] Of Immunizations Name Date Admin Mfg Name [facility] Code Trade Name Lot# Route Inj Vis Given Vis Pub CVX Influenza 06/02/2010 sanofi pasteur PMC Fluzone [id number] Intramuscular Left Deltoid 06/02/2010 02/25/2010 999 History [...] to other allergen Jan 15 2015 4:38PM Payers Insurance Name Company Name Plan Name Plan Number Policy Number Policy Group Number [facility] Date [id number] [place] *INVALID [place] Self Insurance [id number] N /A History of Encounters Visit Date Visit Type Provider 01/15/2015 Nurse visit Yvonne Cassidy MD 01/07/2015 Nurse visit Yvonne Cassidy MD 12/31/2014 Office visit Karolyn Millan VOLCANOLOGY PROFESSOR 12/31/2014 Nurse visit Yvonne Cassidy MD 12/24/2014 Nurse visit Yvonne Casisdy MD 12/17/2014 Nurse visit Yvonne Cassidy MD [...] Cassidy MD 10/11/2014 Office visit Karolyn Millan VOLCANOLOGY PROFESSOR 10/09/2014 Nurse visit Yvonne Cassidy MD 10/04/2014 Nurse visit Yvonne Cassidy MD 09/19/2014 Surgery Karolyn Millan VOLCANOLOGY PROFESSOR 09/13/2014 Office visit Yvonne Cassidy MD 09/06/2014 Nurse visit Yvonne Cassidy MD 08/28/2014 [facility] Joe Thomas MD 08/28/2014 [facility] Chauncey Hogan MD 08/23/2014 Nurse visit Yvonne Cassidy MD 08/22/2014 Surgery Joe Thomas MD 08/16/2014 Nurse visit Yvonne Cassidy MD 08/07/2014 Nurse visit Yvonne Cassidy MD 08/01/2014 Nurse visit Jessie Mock VOLCANOLOGY PROFESSOR 07/25/2014 Nurse visit Nidia Darby VOLCANOLOGY PROFESSOR 07/16/2014 Nurse visit Yvonne Cassidy MD 07/09/2014 [...] Cassidy MD 03/20/2014 Nurse visit Jessie Mock VOLCANOLOGY PROFESSOR 03/13/2014 Nurse visit Donte Hastings VOLCANOLOGY PROFESSOR 03/07/2014 Nurse visit Yvonne Cassidy MD 02/27/2014 Nurse visit Jessie Mock VOLCANOLOGY PROFESSOR 02/20/2014 Nurse visit Donte Hastings VOLCANOLOGY PROFESSOR 02/13/2014 Procedures Joe Thomas MD 02/13/2014 Nurse visit Donte Hastings VOLCANOLOGY PROFESSOR 02/07/2014 Office visit Joe Thomas MD 02/06/2014 Nurse visit Yvonne Cassidy MD 01/17/2014 Nurse visit Nidia Darby VOLCANOLOGY PROFESSOR 01/10/2014 Nurse visit Yvonne Cassidy MD 01/02/2014 Nurse visit Yvonne Cassidy MD 12/26/2013 Nurse visit Yvonne Cassidy MD 12/18/2013 Nurse visit Yvonne Cassidy MD 12/12/2013 Nurse visit Yvonne Cassidy MD 12/05/2013 Nurse visit Yvonne Cassidy MD 11/28/2013 Nurse visit Yvonne Cassidy MD 11/21/2013 Nurse visit Yvonne Cassidy MD 11/14/2013 Nurse visit Yvonne Cassidy MD 11/07/2013 Nurse visit Nidia Darby VOLCANOLOGY PROFESSOR 10/31/2013 Nurse visit Nidia Darby VOLCANOLOGY PROFESSOR 10/25/2013 Nurse visit Nidia Darby VOLCANOLOGY PROFESSOR 10/18/2013 Voided Nidia Darby VOLCANOLOGY PROFESSOR 10/10/2013 Voided Yvonne Cassidy MD 10/03/2013 Nurse [...] Mart MD 04/18/2013 Nurse visit Nidia Darby VOLCANOLOGY PROFESSOR 04/04/2013 Nurse visit Nidia Darby VOLCANOLOGY PROFESSOR 03/28/2013 Nurse visit Nidia Darby VOLCANOLOGY PROFESSOR 03/21/2013 Nurse visit Nidia Darby VOLCANOLOGY PROFESSOR 03/13/2013 Nurse visit Nidia Darby VOLCANOLOGY PROFESSOR 03/09/2013 Nurse visit Nidia Darby VOLCANOLOGY PROFESSOR 03/02/2013 Nurse visit Nidia Darby VOLCANOLOGY PROFESSOR 02/21/2013 Nurse visit Nidia Darby VOLCANOLOGY PROFESSOR 02/13/2013 Office visit Nidia Darby VOLCANOLOGY PROFESSOR 02/06/2013 Nurse visit Bria Mart MD 01/31/2013 [...] Mart MD 10/04/2012 Nurse visit Nidia Darby VOLCANOLOGY PROFESSOR 09/27/2012 Nurse visit Bria Mart MD 09/22/2012 [...] Jesus DO 06/07/2012 Nurse visit Nidia Darby VOLCANOLOGY PROFESSOR 06/01/2012 Office visit Bria Mart MD 05/24/2012 [...] Mart MD 09/08/2011 Office visit Jessie Mock VOLCANOLOGY PROFESSOR 09/08/2011 Nurse visit Bria Mart MD 09/01/2011 [...]
--- OUTSIDE RECORDS SUMMARY | 2017-05-06 15:19 | XMS REPORT ---
Author Author Yvonne Cassidy [facility] Address [address] [place], [place] [id number] Care Team Providers Care Defensive Fire Control Systems Operator Name Role Phone Yvonne Cassidy PCP [...] Reviewed 08/14/2015 12:00 AM IMMUNOTHERAPY INJECTIONS Reviewed 05/14/2011 12:00 [...] 08/21/2011 12:00 AM Depo-Medrol 40 mg [facility]#[id number] Reviewed 09/08/2011 12:00 AM IMMUNOTHERAPY INJECTIONS Reviewed [...] 11/27/2011 12:00 AM Depo-Medrol 40 mg [facility]#[id number] Reviewed 12/01/2011 12:00 AM IMMUNOTHERAPY INJECTIONS Reviewed [...] 12:00 AM Decadron, Per 1 Mg [facility]# [id number] Reviewed 02/13/2013 12:00 AM Depo-Medrol, Per 80 Mg [facility]#[id number] Reviewed 06/05/2013 12:00 AM MAMMOGRAM SCREENING Returned [...] BILI 0.50 mg/dLCALCIUM 10.10 mg/dLeGFR >60 mL/min/1.73 [id number] 10.0 secsINR 1.0 PTT 28.20 secs 08/28/2014 [...] Vis Given Vis Pub CVX Influenza 06/02/2010 [facility] PMC Fluzone [id number] Intramuscular Left Deltoid 06/02/2010 02/25/2010 999 Influenza 05/09/2015 [facility] PMC Fluzone [id number] Intramuscular Left Deltoid 05/09/2015 02/22/2015 141 History [...] to other allergen Aug 14 2015 4:22PM Payers Insurance Name Company Name Plan Name Plan Number Policy Number Policy Group Number Start Date [employer] [place] [id number] [place] Self Insurance Fund *INVALID State Self Insurance [id number] N /A History of Encounters Visit Date Visit Type Provider 08/14/2015 Nurse visit Yvonne Cassidy MD 07/29/2015 Nurse visit Yvonne Cassidy MD 07/22/2015 Nurse visit Yvonne Cassidy MD 07/09/2015 Nurse visit Yvonne Cassidy MD 07/01/2015 Nurse visit Yvonne Cassidy MD 06/26/2015 Nurse visit Yvonne Cassidy MD 06/17/2015 Nurse visit Yvonne Cassidy MD 06/10/2015 Nurse visit Yvonne Cassidy MD 06/04/2015 Nurse visit Yvonne Cassidy MD 05/29/2015 Office visit 05/29/2015 Office visit Karolyn Millan SEEING EYE DOG TEACHER 05/29/2015 Nurse visit Yvonne Cassidy MD 05/14/2015 Nurse visit Francisco J Jesus DO 05/09/2015 Nurse visit Yvonne Cassidy MD 04/30/2015 Nurse visit Yvonne Cassidy MD 04/23/2015 Nurse visit Yvonne Cassidy MD 04/18/2015 Nurse visit Nidia Darby SEEING EYE DOG TEACHER 04/09/2015 Nurse visit Yvonne Cassidy MD 04/01/2015 Nurse visit Yvonne Cassidy MD 03/27/[address] Cody Horvath MD 03/25/2015 [facility] Alexander Park MD 03/19/2015 Nurse visit Yvonne Cassidy MD 03/19/2015 Office visit Nidia Darby SEEING EYE DOG TEACHER 03/04/2015 Nurse visit Yvonne Cassidy MD 02/25/2015 [...] Office visit 12/31/2014 Office visit Karolyn Millan SEEING EYE DOG TEACHER 12/24/2014 Nurse visit Yvonne Cassidy MD 12/17/2014 Nurse visit Yvonne Cassidy MD 12/13/2014 Nurse visit Yvonne Cassidy MD 11/28/2014 Nurse visit Yvonne Cassidy MD 11/19/2014 Nurse visit Yvonne Cassidy MD 11/12/2014 Nurse visit Yvonne Cassidy MD 11/05/2014 Nurse visit Yvonne Cassidy MD 11/05/2014 [facility] Alexander Park MD 10/29/2014 Nurse visit Yvonne Cassidy MD 10/24/2014 Nurse visit Yvonne Cassidy MD 10/15/2014 Nurse visit Yvonne Cassidy MD 10/11/2014 Office visit Karolyn Millan SEEING EYE DOG TEACHER 10/09/2014 Nurse visit Yvonne Cassidy MD 10/04/2014 Nurse visit Yvonne Cassidy MD 09/19/2014 Surgery Karolyn Millan SEEING EYE DOG TEACHER 09/13/2014 Office visit Yvonne Cassidy MD 09/06/2014 Nurse visit Yvonne Cassidy MD 08/28/2014 [facility] Chauncey Hogan MD 08/28/2014 [facility] Joe Thomas MD 08/23/2014 Nurse visit Yvonne Cassidy MD 08/22/2014 Surgery Joe Thomas MD 08/16/2014 Nurse visit Yvonne Cassidy MD 08/07/2014 Nurse visit Yvonne Cassidy MD 08/01/2014 Nurse visit Jessie Mock SEEING EYE DOG TEACHER 07/25/2014 Nurse visit Nidia Darby SEEING EYE DOG TEACHER 07/16/2014 Nurse visit Yvonne Cassidy MD 07/09/2014 [...] Cassidy MD 03/20/2014 Nurse visit Jessie Mock SEEING EYE DOG TEACHER 03/13/2014 Nurse visit Donte Hastings SEEING EYE DOG TEACHER 03/07/2014 Nurse visit Yvonne Cassidy MD 02/27/2014 Nurse visit Jessie Mock SEEING EYE DOG TEACHER 02/20/2014 Nurse visit Donte Hastings SEEING EYE DOG TEACHER 02/13/2014 Nurse visit Donte Hastings SEEING EYE DOG TEACHER 02/13/2014 Procedures Joe Thomas MD 02/07/2014 Office visit Joe Thomas MD 02/06/2014 Nurse visit Yvonne Cassidy MD 01/17/2014 Nurse visit Nidia Darby SEEING EYE DOG TEACHER 01/10/2014 Nurse visit Yvonne Cassidy MD 01/02/2014 Nurse visit Yvonne Cassidy MD 12/26/2013 Nurse visit Yvonne Cassidy MD 12/18/2013 Nurse visit Yvonne Cassidy MD 12/12/2013 Nurse visit Yvonne Cassidy MD 12/05/2013 Nurse visit Yvonne Cassidy MD 11/28/2013 Nurse visit Yvonne Cassidy MD 11/21/2013 Nurse visit Yvonne Cassidy MD 11/14/2013 Nurse visit Yvonne Cassidy MD 11/07/2013 Nurse visit Nidia Darby SEEING EYE DOG TEACHER 10/31/2013 Nurse visit Nidia Darby SEEING EYE DOG TEACHER 10/25/2013 Nurse visit Nidia Darby SEEING EYE DOG TEACHER 10/18/2013 Voided Nidia Darby SEEING EYE DOG TEACHER 10/10/2013 Voided Yvonne Cassidy MD 10/03/2013 Nurse [...] Mart MD 04/18/2013 Nurse visit Nidia Darby SEEING EYE DOG TEACHER 04/04/2013 Nurse visit Nidia Darby SEEING EYE DOG TEACHER 03/28/2013 Nurse visit Nidia Darby SEEING EYE DOG TEACHER 03/21/2013 Nurse visit Nidia Darby SEEING EYE DOG TEACHER 03/13/2013 Nurse visit Nidia Darby SEEING EYE DOG TEACHER 03/09/2013 Nurse visit Nidia Darby SEEING EYE DOG TEACHER 03/02/2013 Nurse visit Nidia Darby SEEING EYE DOG TEACHER 02/21/2013 Nurse visit Nidia Darby SEEING EYE DOG TEACHER 02/13/2013 Office visit Nidia Darby SEEING EYE DOG TEACHER 02/06/2013 Nurse visit Bria Mart MD 01/31/2013 [...] Mart MD 10/04/2012 Nurse visit Nidia Darby SEEING EYE DOG TEACHER 09/27/2012 Nurse visit Bria Mart MD 09/22/2012 [...] Mart MD 06/07/2012 Nurse visit Nidia Darby SEEING EYE DOG TEACHER 06/07/2012 Voided Francisco J Jesus DO 06/01/2012 [...] Mart MD 09/08/2011 Office visit Jessie Mock SEEING EYE DOG TEACHER 09/01/2011 Nurse visit Bria Mart MD 08/21/2011 [...]
--- OUTSIDE RECORDS SUMMARY | 2017-05-06 15:21 | XMS REPORT ---
Author Author Jessie Mock [facility] Address [address] [place], [place] [address] Care Team Providers Care Network Coordinator Name Role Phone Jessie Mock PCP [...] 3mg daily there after, into abdomen, thigh prednisone 20 mg oral tablet 03/04/2016 take 1 tablet by oral route daily Name Start Date Expiration Date SIG Comments [...] daily in the morning for 30 days Problem List Description Status Onset Asthma Active Hypertension Active hypothyroid Active Vitamin D deficiency Active Hypothyroidism Active 05/18/2013 Stress incontinence, female Active 05/18/2013 Urge incontinence Active 05/18/2013 Breast Lump, right Active 12/31/2014 Vital Signs Date Time BP-Sys(mm[Hg] BP-Kairna(mm[Hg]) HR(bpm) RR(rpm) Temp WT HT HC BMI BSA BMI Percentile O2 Sat(%) 03/04/2016 2:48:00 PM 142 mmHg 84 mmHg [...] Reviewed 08/21/2011 12:00 AM Depo-Medrol 40 mg [facility]#[id number] Reviewed 03/02/2016 12:00 AM IMMUNOTHERAPY INJECTIONS Reviewed 09/08/2011 12:00 [...] Reviewed 11/27/2011 12:00 AM Depo-Medrol 40 mg [facility]#[id number] Reviewed 12/01/2011 12:00 AM IMMUNOTHERAPY INJECTIONS Reviewed [...] 02/13/2013 12:00 AM Decadron, Per 1 Mg [facility]# [id number] Reviewed 02/13/2013 12:00 AM Depo-Medrol, Per 80 Mg [facility]#[id number] Reviewed 06/05/2013 12:00 AM MAMMOGRAM SCREENING Returned [...] BILI 0.50 mg/dLCALCIUM 10.10 mg/dLeGFR >60 mL/min/1.73 [id number] 10.0 secsINR 1.0 PTT 28.20 secs 08/28/2014 [...] CVX Influenza 06/02/2010 [facility] PMC Fluzone [id number] Intramuscular Left Deltoid 06/02/2010 02/25/2010 999 Influenza 05/09/2015 [facility] Fluzone [id number] Intramuscular Left Deltoid 05/09/2015 02/22/2015 141 History [...] unspecified laterality Mar 04 2016 2: 52PM Payers Insurance Name Company Name Plan Name Plan Number Policy Number Policy Group Number Start Date BCBS [facility] [id number] June [facility] Self Insurance Fund *INVALID State Self Insurance [id number] N/A Comp [place] [id number] Wednesday, 2015 History of Encounters Visit Date Visit Type Provider 03/04/2016 Office visit Jessie Mock FILER METAL PATTERNS 03/02/2016 Nurse visit Yvonne Cassidy MD 02/19/2016 Nurse visit Yvonne Cassidy MD 02/12/2016 Office visit Jessie Mock FILER METAL PATTERNS 02/03/2016 Nurse visit Yvonne Cassidy MD 01/27/2016 Nurse visit Yvonne Cassidy MD 01/15/2016 Nurse visit Yvonne Cassidy MD 01/08/2016 Office visit Jessie Mock FILER METAL PATTERNS 12/25/2015 Nurse visit Yvonne Cassidy MD 12/09/2015 Nurse visit Yvonne Cassidy MD 12/02/2015 Nurse visit Yvonne Cassidy MD 11/29/2015 Nurse visit Donte Hastings FILER METAL PATTERNS 11/28/2015 Nurse visit Jessie Mock FILER METAL PATTERNS 11/27/2015 Office visit Jessie Mock FILER METAL PATTERNS 11/25/2015 Office visit Donet Hastings FILER METAL PATTERNS 11/18/2015 Nurse visit Donte Hastings FILER METAL PATTERNS 11/11/2015 Nurse visit Jessie Mock FILER METAL PATTERNS 11/04/2015 Nurse visit Donte Hastings APRN 10/29/2015 Office visit Jessie Mock FILER METAL PATTERNS 10/28/2015 Nurse visit Jessie Mock FILER METAL PATTERNS 10/21/2015 Nurse visit Glenn Tejeda MD 10/15/2015 Nurse visit Francisco J Jesus DO 10/09/2015 Nurse visit Glenn Tejeda MD 10/02/2015 Office visit April Deepakgordy FILER METAL PATTERNS 10/01/2015 Nurse visit Jessie Mock FILER METAL PATTERNS 09/11/2015 Nurse visit Yvonne Cassidy MD 09/05/2015 [...] Office visit 05/29/2015 Office visit Karolyn Millan FILER METAL PATTERNS 05/29/2015 Nurse visit Yvonne Cassidy MD 05/14/2015 Nurse visit Francisco J Jesus DO 05/09/2015 Nurse visit Yvonne Cassidy MD 04/30/2015 Nurse visit Yvonne Cassidy MD 04/23/2015 Nurse visit Yvonne Cassidy MD 04/18/2015 Nurse visit Nidia Darby FILER METAL PATTERNS 04/09/2015 Nurse visit Yvonne Cassidy MD 04/01/2015 Nurse visit Yvonne Cassidy MD 03/27/[address] Cody Horvath MD 03/25/2015 [facility] Alexander Park MD 03/19/2015 Nurse visit Yvonne Cassidy MD 03/19/2015 Office visit Nidia Darby FILER METAL PATTERNS 03/04/2015 Nurse visit Yvonne Cassidy MD 02/25/2015 [...] Office visit 12/31/2014 Office visit Karolyn Millan FILER METAL PATTERNS 12/24/2014 Nurse visit Yvonne Cassidy MD 12/17/2014 Nurse visit Yvonne Cassidy MD 12/13/2014 Nurse visit Yvonne Cassidy MD 11/28/2014 Nurse visit Yvonne Cassidy MD 11/19/2014 Nurse visit Yvonne Cassidy MD 11/12/2014 Nurse visit Yvonne Cassidy MD 11/05/2014 Nurse visit Yvonne Cassidy MD 11/05/2014 [facility] Darin Park MD 10/29/2014 Nurse visit Yvonne Cassidy MD 10/24/2014 Nurse visit Yvonne Cassidy MD 10/15/2014 Nurse visit Yvonne Cassidy MD 10/11/2014 Office visit Karolyn Millan FILER METAL PATTERNS 10/09/2014 Nurse visit Yvonne Cassidy MD 10/04/2014 Nurse visit Yvonne Cassidy MD 09/19/2014 Surgery Karolyn Millan FILER METAL PATTERNS 09/13/2014 Office visit Yvonne Cassidy MD 09/06/2014 Nurse visit Yvonne Cassidy MD 08/28/2014 [facility] Chauncey Hogan MD 08/28/2014 [facility] Joe Thomas MD 08/23/2014 Nurse visit Yvonne Cassidy MD 08/22/2014 Surgery Joe Thomas MD 08/16/2014 Nurse visit Yvonne Cassidy MD 08/07/2014 Nurse visit Yvonne Cassidy MD 08/01/2014 Nurse visit Jessie Mock FILER METAL PATTERNS 07/25/2014 Nurse visit Nidia Darby FILER METAL PATTERNS 07/16/2014 Nurse visit Yvonne Cassidy MD 07/09/2014 [...] Cassidy MD 03/20/2014 Nurse visit Jessie Mock FILER METAL PATTERNS 03/13/2014 Nurse visit Donte Hastings FILER METAL PATTERNS 03/07/2014 Nurse visit Yvonne Cassidy MD 02/27/2014 Nurse visit Jessie Mock FILER METAL PATTERNS 02/20/2014 Nurse visit Donte Hastings FILER METAL PATTERNS 02/13/2014 Nurse visit Donte Hastings FILER METAL PATTERNS 02/13/2014 Procedures Joe Thomas MD 02/07/2014 Office visit Joe Thomas MD 02/06/2014 Nurse visit Yvonne Cassidy MD 01/17/2014 Nurse visit Nidia Darby FILER METAL PATTERNS 01/10/2014 Nurse visit Yvonne Cassidy MD 01/02/2014 Nurse visit Yvonne Cassidy MD 12/26/2013 Nurse visit Yvonne Cassidy MD 12/18/2013 Nurse visit Yvonne Cassidy MD 12/12/2013 Nurse visit Yvonne Cassidy MD 12/05/2013 Nurse visit Yvonne Cassidy MD 11/28/2013 Nurse visit Yvonne Cassidy MD 11/21/2013 Nurse visit Yvonne Cassidy MD 11/14/2013 Nurse visit Yvonne Cassidy MD 11/07/2013 Nurse visit Nidia Darby FILER METAL PATTERNS 10/31/2013 Nurse visit Nidia Darby FILER METAL PATTERNS 10/25/2013 Nurse visit Nidia Darby FILER METAL PATTERNS 10/18/2013 Voided Nidia Darby FILER METAL PATTERNS 10/10/2013 Voided Yvonne Cassidy MD 10/03/2013 Nurse [...] Mart MD 04/18/2013 Nurse visit Nidia Darby FILER METAL PATTERNS 04/04/2013 Nurse visit Nidia Darby FILER METAL PATTERNS 03/28/2013 Nurse visit Nidia Darby FILER METAL PATTERNS 03/21/2013 Nurse visit Nidia Darby FILER METAL PATTERNS 03/13/2013 Nurse visit Nidia Darby FILER METAL PATTERNS 03/09/2013 Nurse visit Nidia Darby FILER METAL PATTERNS 03/02/2013 Nurse visit Nidia Darby FILER METAL PATTERNS 02/21/2013 Nurse visit Nidia Darby FILER METAL PATTERNS 02/13/2013 Office visit Nidia Darby FILER METAL PATTERNS 02/06/2013 Nurse visit Bria Mart MD 01/31/2013 [...] Mart MD 10/04/2012 Nurse visit Nidia Darby FILER METAL PATTERNS 09/27/2012 Nurse visit Bria Mart MD 09/22/2012 [...] Mart MD 06/07/2012 Nurse visit Nidia Darby FILER METAL PATTERNS 06/07/2012 Voided Francisco J Jesus DO 06/01/2012 [...] visit Bria Mart MD 05/27/2011 Nurse visit Brai Mart MD 05/20/2011 Nurse visit Bria Mart [...]
[2017-05-06 15:24] LABS: BILIRUBIN,URINE NEGATIVE (NEGATIVE); KETONES,URINE NEGATIVE (NEGATIVE); LEUKOCYTE ESTERASE ,URINE 1+ (NEGATIVE); NITRITE,URINE NEGATIVE (NEGATIVE); PH,URINE 5 (5-9); PROTEIN,URINE NEGATIVE (NEGATIVE); UROBILINOGEN,URINE NORMAL (NORMAL)
--- OUTSIDE RECORDS SUMMARY | 2017-05-06 15:25 | XMS REPORT ---
Author Author Jessie Mock [facility] Address [address] [place], [place] [address] Care Team Providers Care Systems Programmer Name Role Phone Jessie Mock PCP Unavailable [...] ONCE DAILY atenolol 25 mg oral tablet 10/29/2015 01/27/2016 take 1 tablet (25 mg) by oral route once daily for 30 days meloxicam 15 mg oral tablet 12/09/2015 TAKE 1 TABLET BY MOUTH ONCE DAILY phentermine 37.5 mg oral tablet 01/08/2016 take 1 tablet (37.5 mg) by oral route once daily before breakfast Name Start Date Expiration Date SIG Comments [...] HC BMI BSA BMI Percentile O2 Sat(%) 01/08/2016 3:21:00 PM 132 mmHg 74 mmHg [...] 12:00 AM Blood Pressure Check-no charge Reviewed 08/06/2011 12:00 AM THER/PROPH/DIAG INJ SC/IM Reviewed 08/06/2011 12:00 AM IMMUNOTHERAPY INJECTIONS Reviewed 08/12/2011 12:00 AM IMMUNOTHERAPY INJECTIONS Reviewed 08/21/2011 12:00 AM THER/PROPH/DIAG INJ SC/IM Reviewed 08/21/2011 12:00 AM Depo-Medrol 40 mg [facility]#[id number] Reviewed 09/08/2011 12:00 AM IMMUNOTHERAPY INJECTIONS Reviewed [...] Reviewed 11/27/2011 12:00 AM Depo-Medrol 40 mg [facility]#[id number] Reviewed 12/01/2011 12:00 AM IMMUNOTHERAPY INJECTIONS Reviewed [...] 1 Mg [facility]# [address]-64 Reviewed 02/13/2013 12:00 AM Depo-Medrol, Per 80 Mg [facility]#[id number] Reviewed 06/05/2013 12:00 AM MAMMOGRAM SCREENING Returned [...] BILI 0.50 mg/dLCALCIUM 10.10 mg/dLeGFR >60 mL/min/1.73 [id number] 10.0 secsINR 1.0 PTT 28.20 secs 08/28/2014 [...] CVX Influenza 06/02/2010 [facility] PMC Fluzone [id number] Intramuscular Left Deltoid 06/02/2010 02/25/2010 999 Influenza 05/09/2015 [facility] PMC Fluzone [id number] Intramuscular Left Deltoid 05/09/2015 02/22/2015 141 History [...] 3:46PM Allergic rhinitis due to other allergen Feb 2015 3:46PM Allergic rhinitis; due to other allergen Sep 05 2015 3:49PM Allergic rhinitis due to other allergen Sep 05 2015 3:49PM Allergic rhinitis; due to other allergen Sep 11 2015 4:29PM Allergic rhinitis due to other allergen Fe2015 4:29PM Allergic rhinitis; due to other allergen [...] 2016 3:23PM Hypertension Jan 08 2016 3:23PM Payers Insurance Name Company Name Plan Name Plan Number Policy Number Policy Group Number Start Date [facility] [id number] June [facility] Self Insurance Fund *INVALID State Self Insurance [id number] N/A Comp [place] [facility] [place] [id number] Wednesday, 2015 History of Encounters Visit Date Visit Type Provider 01/08/2016 Office visit Jessie Mock APRN 12/25/2015 Nurse visit Yvonne Cassidy MD 12/09/2015 Nurse visit Yvonne Cassidy MD 12/02/2015 Nurse visit Yvonne Cassidy MD 11/29/2015 Nurse visit Donte Hastings APRN 11/28/2015 Nurse visit Jessie Mock TOOL PLANER SET UP OPERATOR 11/27/2015 Office visit Jessie Mock APRN 11/25/2015 Office visit Donte Hastings APRN 11/18/2015 Nurse visit Donte Hastings APRN 11/11/2015 Nurse visit Jessie Mock TOOL PLANER SET UP OPERATOR 11/04/2015 Nurse visit Donte Hastings APRN 10/29/2015 Office visit Jessie Mock APRN 10/28/2015 Nurse visit Jessie Mock APRN 10/21/2015 Nurse visit Glenn Tejeda MD 10/15/2015 Nurse visit Francisco J Jesus DO 10/09/2015 Nurse visit Glenn Tejeda MD 10/02/2015 Office visit April Deepakgordy TOOL PLANER SET UP OPERATOR 10/01/2015 Nurse visit Jessie Mock TOOL PLANER SET UP OPERATOR 09/11/2015 Nurse visit Yvonne Cassidy MD [...] visit 05/29/2015 Office visit Karolyn Millan TOOL PLANER SET UP OPERATOR 05/29/2015 Nurse visit Yvonne Cassidy MD 05/14/2015 Nurse visit Francisco J Jesus DO 05/09/2015 Nurse visit Yvonne Cassidy MD 04/30/2015 Nurse visit Yvonne Cassidy MD 04/23/2015 Nurse visit Yvonne Cassidy MD 04/18/2015 Nurse visit Nidia Darby TOOL PLANER SET UP OPERATOR 04/09/2015 Nurse visit Yvonne Cassidy MD 04/01/2015 Nurse visit Yvonne Cassidy MD 03/27/[address] Cody Horvath MD 03/25/2015 [facility] Alexander Park MD 03/19/2015 Nurse visit Yvonne Cassidy MD 03/19/2015 Office visit Nidia Darby TOOL PLANER SET UP OPERATOR 03/04/2015 Nurse visit Yvonne Cassidy MD [...] visit 12/31/2014 Office visit Karolyn Millan TOOL PLANER SET UP OPERATOR 12/24/2014 Nurse visit Yvonne Cassidy MD 12/17/2014 Nurse visit Yvonne Cassidy MD 12/13/2014 Nurse visit Yvonne Cassidy MD 11/28/2014 Nurse visit Yvonne Cassidy MD 11/19/2014 Nurse visit Yvonne Cassidy MD 11/12/2014 Nurse visit Yvonne Cassidy MD 11/05/2014 Nurse visit Yvonne Cassidy MD 11/05/2014 [facility] Darin Park MD 10/29/2014 Nurse visit Yvonne Cassidy MD 10/24/2014 Nurse visit Yvonne Cassidy MD 10/15/2014 Nurse visit Yvonne Cassidy MD 10/11/2014 Office visit Karolyn Millan TOOL PLANER SET UP OPERATOR 10/09/2014 Nurse visit Yvonne Cassidy MD 10/04/2014 Nurse visit Yvonne Cassidy MD 09/19/2014 Surgery Karolyn Millan TOOL PLANER SET UP OPERATOR 09/13/2014 Office visit Yvonne Cassidy MD 09/06/2014 Nurse visit Yvonne Cassidy MD 08/28/2014 [facility] Chauncey Hogan MD 08/28/2014 [facility] Joe Thomas MD 08/23/2014 Nurse visit Yvonne Cassidy MD 08/22/2014 Surgery Joe Thomas MD 08/16/2014 Nurse visit Yvonne Cassidy MD 08/07/2014 Nurse visit Yvonne Cassidy MD 08/01/2014 Nurse visit Jessie Mock TOOL PLANER SET UP OPERATOR 07/25/2014 Nurse visit Nidia Darby TOOL PLANER SET UP OPERATOR 07/16/2014 Nurse visit Yvonne Cassidy MD [...] MD 03/20/2014 Nurse visit Jessie Mock TOOL PLANER SET UP OPERATOR 03/13/2014 Nurse visit Donte Hastings TOOL PLANER SET UP OPERATOR 03/07/2014 Nurse visit Yvonne Cassidy MD 02/27/2014 Nurse visit Jessie Mock TOOL PLANER SET UP OPERATOR 02/20/2014 Nurse visit Donte Hastings TOOL PLANER SET UP OPERATOR 02/13/2014 Nurse visit Donte Hastings TOOL PLANER SET UP OPERATOR 02/13/2014 Procedures Joe Thomas MD 02/07/2014 Office visit Joe Thomas MD 02/06/2014 Nurse visit Yvonne Cassidy MD 01/17/2014 Nurse visit Nidia Darby TOOL PLANER SET UP OPERATOR 01/10/2014 Nurse visit Yvonne Cassidy MD 01/02/2014 Nurse visit Yvonne Cassidy MD 12/26/2013 Nurse visit Yvonne Cassidy MD 12/18/2013 Nurse visit Yvonne Cassidy MD 12/12/2013 Nurse visit Yvonne Cassidy MD 12/05/2013 Nurse visit Yvonne Cassidy MD 11/28/2013 Nurse visit Yvonne Cassidy MD 11/21/2013 Nurse visit Yvonne Cassidy MD 11/14/2013 Nurse visit Yvonne Cassidy MD 11/07/2013 Nurse visit Nidia Darby TOOL PLANER SET UP OPERATOR 10/31/2013 Nurse visit Nidia Darby TOOL PLANER SET UP OPERATOR 10/25/2013 Nurse visit Nidia Darby TOOL PLANER SET UP OPERATOR 10/18/2013 Voided Nidia Darby TOOL PLANER SET UP OPERATOR 10/10/2013 Voided Yvonne Cassidy MD 10/03/2013 [...] Bria Mart MD 06/02/2013 Office visit Joe Thoams MD 06/01/2013 Office visit Joe Thomas MD 05/30/2013 Nurse visit Bria Mart MD 05/23/2013 Nurse visit Bria Mart MD 05/18/2013 Office visit Joe Thomas MD 05/15/2013 Nurse visit Bria Mart MD 05/09/2013 Nurse visit Bria Mart MD 05/01/2013 Nurse visit Bria Mart MD 04/18/2013 Nurse visit Nidia Darby TOOL PLANER SET UP OPERATOR 04/04/2013 Nurse visit Nidia Darby TOOL PLANER SET UP OPERATOR 03/28/2013 Nurse visit Nidia Darby TOOL PLANER SET UP OPERATOR 03/21/2013 Nurse visit Nidia Darby TOOL PLANER SET UP OPERATOR 03/13/2013 Nurse visit Nidia Darby TOOL PLANER SET UP OPERATOR 03/09/2013 Nurse visit Nidia Darby TOOL PLANER SET UP OPERATOR 03/02/2013 Nurse visit Nidia Darby TOOL PLANER SET UP OPERATOR 02/21/2013 Nurse visit Nidia Darby TOOL PLANER SET UP OPERATOR 02/13/2013 Office visit Nidia Darby TOOL PLANER SET UP OPERATOR 02/06/2013 Nurse visit Bria Mart MD [...] MD 10/04/2012 Nurse visit Nidia Darby TOOL PLANER SET UP OPERATOR 09/27/2012 Nurse visit Bria Mart MD [...] MD 06/07/2012 Nurse visit Nidia Darby TOOL PLANER SET UP OPERATOR 06/07/2012 Voided Francisco J Jesus DO 06/01/2012 [...] MD 09/08/2011 Office visit Jessie Mock TOOL PLANER SET UP OPERATOR 09/01/2011 Nurse visit Bria Mart MD [...]
--- OUTSIDE RECORDS SUMMARY | 2017-05-06 15:27 | XMS REPORT ---
Author Author Yvonne Cassidy Organization [facility] Address [address] [place], [place] [id number] Care Team Providers Care Recreational Vehicle Resort Manager Name Role Phone Yvonne Cassidy PCP Allergies [...] BILI 0.50 mg/dLCALCIUM 10.10 mg/dLeGFR >60 mL/min/1.73 [id number] 10.0 secsINR 1.0 PTT 28.20 secs 08/28/2014 [...] CVX Influenza 06/02/2010 sanofi pasteur PMC Fluzone [id number] Intramuscular Left Deltoid 06/02/2010 02/25/2010 999 History [...] Number Start Date [facility] [id number] [place] Self Insurance Fund [place]INVALID [place] Self Insurance [id number] N /A History of Encounters Visit Date Visit Type Provider 12/31/2014 Office visit Karolyn Millan CLEARANCE CUTTER 12/31/2014 Nurse visit Yvonne Cassidy MD 12/24/2014 [...] Cassidy MD 10/11/2014 Office visit Karolyn Millan CLEARANCE CUTTER 10/09/2014 Nurse visit Yvonne Cassidy MD 10/04/2014 Nurse visit Yvonne Cassidy MD 09/19/2014 Surgery Karolyn Millan CLEARANCE CUTTER 09/13/2014 Office visit Yvonne Cassidy MD 09/06/2014 Nurse visit Yvonne Cassidy MD 08/28/2014 Hospital Joe Thomas MD 08/28/2014 [facility] Chauncey Hogan MD 08/23/2014 Nurse visit Yvonne Cassidy MD 08/22/2014 Surgery Joe Thomas MD 08/16/2014 Nurse visit Yvonne Cassidy MD 08/07/2014 Nurse visit Yvonne Cassidy MD 08/01/2014 Nurse visit Jessie Mock CLEARANCE CUTTER 07/25/2014 Nurse visit Nidia Darby CLEARANCE CUTTER 07/16/2014 Nurse visit Yvonne Cassidy MD 07/09/2014 [...] Cassidy MD 03/20/2014 Nurse visit Jessie Mock CLEARANCE CUTTER 03/13/2014 Nurse visit Donte Hastings CLEARANCE CUTTER 03/07/2014 Nurse visit Yvonne Cassidy MD 02/27/2014 Nurse visit Jessie Mock CLEARANCE CUTTER 02/20/2014 Nurse visit Donte Hastings CLEARANCE CUTTER 02/13/2014 Procedures Joe Thomas MD 02/13/2014 Nurse visit Donte Hastings CLEARANCE CUTTER 02/07/2014 Office visit Joe Thomas MD 02/06/2014 Nurse visit Yvonne Cassidy MD 01/17/2014 Nurse visit Nidia Darby CLEARANCE CUTTER 01/10/2014 Nurse visit Yvonne Cassidy MD 01/02/2014 Nurse visit Yvonne Cassidy MD 12/26/2013 Nurse visit Yvonne Cassidy MD 12/18/2013 Nurse visit Yvonne Cassidy MD 12/12/2013 Nurse visit Yvonne Cassidy MD 12/05/2013 Nurse visit Yvonne Cassidy MD 11/28/2013 Nurse visit Yvonne Cassidy MD 11/21/2013 Nurse visit Yvonne Cassidy MD 11/14/2013 Nurse visit Yvonne Cassidy MD 11/07/2013 Nurse visit Nidia Darby CLEARANCE CUTTER 10/31/2013 Nurse visit Nidia Darby CLEARANCE CUTTER 10/25/2013 Nurse visit Nidia Darby CLEARANCE CUTTER 10/18/2013 Voided Nidia Darby CLEARANCE CUTTER 10/10/2013 Voided Yvonne Cassidy MD 10/03/2013 Nurse [...] Mart MD 04/18/2013 Nurse visit Nidia Darby CLEARANCE CUTTER 04/04/2013 Nurse visit Nidia Darby CLEARANCE CUTTER 03/28/2013 Nurse visit Nidia Darby CLEARANCE CUTTER 03/21/2013 Nurse visit Nidia Darby CLEARANCE CUTTER 03/13/2013 Nurse visit Nidia Darby CLEARANCE CUTTER 03/09/2013 Nurse visit Nidia Darby CLEARANCE CUTTER 03/02/2013 Nurse visit Nidia Darby CLEARANCE CUTTER 02/21/2013 Nurse visit Nidia Darby CLEARANCE CUTTER 02/13/2013 Office visit Nidia Darby CLEARANCE CUTTER 02/06/2013 Nurse visit Bria Mart MD 01/31/2013 [...] Mart MD 10/04/2012 Nurse visit Nidia Darby CLEARANCE CUTTER 09/27/2012 Nurse visit Bria Mart MD 09/22/2012 [...] Jesus DO 06/07/2012 Nurse visit Nidia Darby CLEARANCE CUTTER 06/01/2012 Office visit Bria Mart MD 05/24/2012 [...] Mart MD 09/08/2011 Office visit Jessie Mock CLEARANCE CUTTER 09/08/2011 Nurse visit Bria Mart MD 09/01/2011 [...]
--- OUTSIDE RECORDS SUMMARY | 2017-05-06 15:29 | XMS REPORT ---
Author Author Glenn Tejeda [facility] Address [address] [place], [place] [id number] Care Team Providers Care Redevelopment Specialist Name Role Phone Glenn Tejeda PCP Unavailable Allergies and Adverse Reactions Name [...] ONCE DAILY atenolol 25 mg oral tablet 10/15/2015 11/14/2015 take 1 tablet (25 mg) by oral [...] HC BMI BSA BMI Percentile O2 Sat(%) 10/02/2015 3:29:00 PM 150 mmHg 80 mmHg [...] Reviewed 10/21/2015 12:00 AM IMMUNOTHERAPY INJECTIONS Reviewed 07/07/2011 12:00 AM IMMUNOTHERAPY INJECTIONS Reviewed 07/16/2011 12:00 AM IMMUNOTHERAPY INJECTIONS Reviewed 07/16/2011 12:00 AM IMMUNOTHERAPY INJECTIONS Reviewed 07/28/2011 12:00 AM IMMUNOTHERAPY INJECTIONS Reviewed 08/06/2011 12:00 AM THER/PROPH/DIAG INJ SC/IM Reviewed 08/06/2011 12:00 AM IMMUNOTHERAPY INJECTIONS Reviewed 08/12/2011 12:00 AM IMMUNOTHERAPY INJECTIONS Reviewed 08/21/2011 12:00 AM THER/PROPH/DIAG INJ SC/IM Reviewed 08/21/2011 12:00 AM Depo-Medrol 40 mg N[facility]#[id number] Reviewed 09/08/2011 12:00 AM IMMUNOTHERAPY INJECTIONS Reviewed [...] Reviewed 11/27/2011 12:00 AM Depo-Medrol 40 mg [facility]#[id number] Reviewed 12/01/2011 12:00 AM IMMUNOTHERAPY INJECTIONS Reviewed [...] Per 1 Mg [facility]# [id number] Reviewed 02/13/2013 12:00 AM Depo-Medrol, Per 80 Mg [facility]#1770-1583-14 Reviewed 06/05/2013 12:00 AM MAMMOGRAM SCREENING Returned [...] BILI 0.50 mg/dLCALCIUM 10.10 mg/dLeGFR >60 mL/min/1.73 [id number] 10.0 secsINR 1.0 PTT 28.20 secs 08/28/2014 [...] CVX Influenza 06/02/2010 sanofi pasteur PMC Fluzone [id number] Intramuscular Left Deltoid 06/02/2010 02/25/2010 999 Influenza 05/09/2015 sanofi pasteur PMC Fluzone [id number] Intramuscular Left Deltoid 05/09/2015 02/22/2015 141 History [...] to other allergen Oct 21 2015 4:05PM Payers Insurance Name Company Name Plan Name Plan Number Policy Number Policy Group Number Start Date [employer] [id number] June Counts include 234 beds at the [facility] Self Insurance Fund *[facility] Self Insurance [id number] N/A History of Encounters Visit Date Visit Type Provider 10/21/2015 Nurse visit Glenn Tejeda MD 10/15/2015 Nurse visit Francisco J Jesus DO 10/09/2015 Nurse visit Glenn Tejeda MD 10/02/2015 Office visit April Atkinson PRINTING SUPERVISOR 10/01/2015 Nurse visit Jessie Mock PRINTING SUPERVISOR 09/11/2015 Nurse visit Yvonne Cassidy MD [...] Office visit 05/29/2015 Office visit Karolyn Millan PRINTING SUPERVISOR 05/29/2015 Nurse visit Yvonne Cassidy MD 05/14/2015 Nurse visit Francisco J Jesus DO 05/09/2015 Nurse visit Yvonne Cassidy MD 04/30/2015 Nurse visit Yvonne Cassidy MD 04/23/2015 Nurse visit Yvonne Cassidy MD 04/18/2015 Nurse visit Nidia Darby PRINTING SUPERVISOR 04/09/2015 Nurse visit Yvonne Cassidy MD 04/01/2015 Nurse visit Yvonne Cassidy MD 03/27/[address] Cody Horvath MD 03/25/2015 [facility] Alexander Park MD 03/19/2015 Nurse visit Yvonne Cassidy MD 03/19/2015 Office visit Nidia Darby PRINTING SUPERVISOR 03/04/2015 Nurse visit Yvonne Cassidy MD [...] Office visit 12/31/2014 Office visit Karolyn Millan PRINTING SUPERVISOR 12/24/2014 Nurse visit Yvonne Cassidy MD [...] Cassidy MD 10/11/2014 Office visit Karolyn Millan PRINTING SUPERVISOR 10/09/2014 Nurse visit Yvonne Cassidy MD 10/04/2014 Nurse visit Yvonne Cassidy MD 09/19/2014 Surgery Karolyn Millan PRINTING SUPERVISOR 09/13/2014 Office visit Yvonne Cassidy MD 09/06/2014 Nurse visit Yvonne Cassidy MD 08/28/2014 [facility] Chauncey Hogan MD 08/28/2014 [facility] Joe Thomas MD 08/23/2014 Nurse visit Yvonne Cassidy MD 08/22/2014 Surgery Joe Thomas MD 08/16/2014 Nurse visit Yvonne Cassidy MD 08/07/2014 Nurse visit Yvonne Cassidy MD 08/01/2014 Nurse visit Jessie Mock PRINTING SUPERVISOR 07/25/2014 Nurse visit Nidia Darby PRINTING SUPERVISOR 07/16/2014 Nurse visit Yvonne Cassidy MD [...] Cassidy MD 03/20/2014 Nurse visit Jessie Mock PRINTING SUPERVISOR 03/13/2014 Nurse visit Donte Hastings PRINTING SUPERVISOR 03/07/2014 Nurse visit Yvonne Cassidy MD 02/27/2014 Nurse visit Jessie Mock PRINTING SUPERVISOR 02/20/2014 Nurse visit Donte Hastings PRINTING SUPERVISOR 02/13/2014 Nurse visit Donte Hastings PRINTING SUPERVISOR 02/13/2014 Procedures Joe Thomas MD 02/07/2014 Office visit Joe Thomas MD 02/06/2014 Nurse visit Yvonne Cassidy MD 01/17/2014 Nurse visit Nidia Darby PRINTING SUPERVISOR 01/10/2014 Nurse visit Yvonne Cassidy MD 01/02/2014 Nurse visit Yvonne Cassidy MD 12/26/2013 Nurse visit Yvonne Cassidy MD 12/18/2013 Nurse visit Yvonne Cassidy MD 12/12/2013 Nurse visit Yvonne Cassidy MD 12/05/2013 Nurse visit Yvonne Cassidy MD 11/28/2013 Nurse visit Yvonne Cassidy MD 11/21/2013 Nurse visit Yvonne Cassidy MD 11/14/2013 Nurse visit Yvonne Cassidy MD 11/07/2013 Nurse visit Nidia Darby PRINTING SUPERVISOR 10/31/2013 Nurse visit Nidia Darby PRINTING SUPERVISOR 10/25/2013 Nurse visit Nidia Darby PRINTING SUPERVISOR 10/18/2013 Voided Nidia Darby PRINTING SUPERVISOR 10/10/2013 Voided Yvonne Cassidy MD 10/03/2013 [...] Mart MD 04/18/2013 Nurse visit Nidia Darby PRINTING SUPERVISOR 04/04/2013 Nurse visit Nidia Darby PRINTING SUPERVISOR 03/28/2013 Nurse visit Nidia Darby PRINTING SUPERVISOR 03/21/2013 Nurse visit Nidia Darby PRINTING SUPERVISOR 03/13/2013 Nurse visit Nidia Darby PRINTING SUPERVISOR 03/09/2013 Nurse visit Nidia Darby PRINTING SUPERVISOR 03/02/2013 Nurse visit Nidia Darby PRINTING SUPERVISOR 02/21/2013 Nurse visit Nidia Darby PRINTING SUPERVISOR 02/13/2013 Office visit Nidia Darby PRINTING SUPERVISOR 02/06/2013 Nurse visit Bria Mart MD [...] Mart MD 10/04/2012 Nurse visit Nidia Darby PRINTING SUPERVISOR 09/27/2012 Nurse visit Bria Mart MD 09/22/2012 Nurse visit Bria Mart MD 09/12/2012 Nurse visit Bria Mart MD 09/05/2012 Nurse visit Francisco J Jesus DO 08/31/2012 Nurse visit Bria Mart MD 08/23/2012 Nurse visit Bria aMrt MD 08/16/2012 Nurse visit Bria Mart MD 08/10/2012 Nurse visit Bria Mart MD 08/03/2012 Nurse visit Bria Mart MD 07/26/2012 Nurse visit Bria Mart MD 07/13/2012 Nurse visit Bria Mart MD 07/05/2012 Nurse visit Bria Mart MD 06/21/2012 Nurse visit Bria Mart MD 06/14/2012 Nurse visit Bria Mart MD 06/07/2012 Nurse visit Nidia Darby PRINTING SUPERVISOR 06/07/2012 Voided Francisco J Jesus DO [...] Bria Mart MD 04/08/2011 Nurse visit Bria Mrat MD 04/02/2011 Nurse visit Bria Mart MD [...]
--- OUTSIDE RECORDS SUMMARY | 2017-05-06 15:32 | XMS REPORT ---
Author Author Yvonne Cassidy [facility] Address [address] [place], [place] [address] Care Team Providers Care Maternity Floor Supervisor Name Role Phone Yvonne Cassidy PCP Allergies [...] Reviewed 08/21/2011 12:00 AM Depo-Medrol 40 mg ND#[id number] Reviewed 09/08/2011 12:00 AM IMMUNOTHERAPY INJECTIONS Reviewed [...] 12:00 AM Depo-Medrol 40 mg [facility]#[id number] Reviewed 12/01/2011 12:00 AM IMMUNOTHERAPY INJECTIONS Reviewed [...] AM Decadron, Per 1 Mg [facility]# [address]-33 Reviewed 02/13/2013 12:00 AM Depo-Medrol, Per 80 Mg [facility]#6323-6961-20 Reviewed 06/05/2013 12:00 AM MAMMOGRAM SCREENING Returned [...] BILI 0.50 mg/dLCALCIUM 10.10 mg/dLeGFR >60 mL/min/1.73 [id number] 10.0 secsINR 1.0 PTT 28.20 secs 08/28/2014 [...] uIU/mL History Of Immunizations Name Date Admin Mf Name [facility] Code Trade Name Lot# Route Inj Vis Given Vis Pub CVX Influenza 06/02/2010 sanofi pasteur PMC Fluzone [id number] Intramuscular Left Deltoid 06/02/2010 02/25/2010 999 Influenza 05/09/2015 sanofi pasteur PMC Fluzone [id number] Intramuscular Left Deltoid 05/09/2015 02/22/2015 141 History [...] to other allergen Aug 19 2015 3:46PM Payers Insurance Name Company Name Plan Name Plan Number Policy Number Policy Group Number Start Date [employer] [id number] [place] Self Insurance [place] *[place] Self Insurance [id number] N /A History of Encounters Visit Date Visit Type Provider 08/19/2015 Nurse visit Yvonne Cassidy MD 08/14/2015 [...] Office visit 05/29/2015 Office visit Karolyn Millan SOCK BOARDER 05/29/2015 Nurse visit Yvonne Cassidy MD 05/14/2015 Nurse visit Francisco J Jesus DO 05/09/2015 Nurse visit Yvonne Cassidy MD 04/30/2015 Nurse visit Yvonne Cassidy MD 04/23/2015 Nurse visit Yvonne Cassidy MD 04/18/2015 Nurse visit Nidia Darby SOCK BOARDER 04/09/2015 Nurse visit Yvonne Cassidy MD 04/01/2015 Nurse visit Yvonne Cassidy MD 03/27/[address] Cody Horvath MD 03/25/2015 [facility] Alexander Park MD 03/19/2015 Nurse visit Yvonne Cassidy MD 03/19/2015 Office visit Nidia Darby SOCK BOARDER 03/04/2015 Nurse visit Yvonne Cassidy MD 02/25/2015 [...] Office visit 12/31/2014 Office visit Karolyn Millan SOCK BOARDER 12/24/2014 Nurse visit Yvonne Cassidy MD 12/17/2014 [...] Cassidy MD 10/11/2014 Office visit Karolyn Millan SOCK BOARDER 10/09/2014 Nurse visit Yvonne Cassidy MD 10/04/2014 Nurse visit Yvonne Cassidy MD 09/19/2014 Surgery Karolyn Millan SOCK BOARDER 09/13/2014 Office visit Yvonne Cassidy MD 09/06/2014 Nurse visit Yvonne Cassidy MD 08/28/2014 [facility] Chauncey Hogan MD 08/28/2014 [facility] Jeo Thomas MD 08/23/2014 Nurse visit Yvonne Cassidy MD 08/22/2014 Surgery Joe Thomas MD 08/16/2014 Nurse visit Yvonne Cassidy MD 08/07/2014 Nurse visit Yvonne Cassidy MD 08/01/2014 Nurse visit Jessie Mock SOCK BOARDER 07/25/2014 Nurse visit Nidia Darby SOCK BOARDER 07/16/2014 Nurse visit Yvonne Cassidy MD 07/09/2014 [...] Cassidy MD 03/20/2014 Nurse visit Jessie Mock SOCK BOARDER 03/13/2014 Nurse visit Donte Hastings SOCK BOARDER 03/07/2014 Nurse visit Yvonne Cassidy MD 02/27/2014 Nurse visit Jessie Mock SOCK BOARDER 02/20/2014 Nurse visit Donte Hastings SOCK BOARDER 02/13/2014 Nurse visit Donte Hastings SOCK BOARDER 02/13/2014 Procedures Joe Thomas MD 02/07/2014 Office visit Joe Thomas MD 02/06/2014 Nurse visit Yvonne Cassidy MD 01/17/2014 Nurse visit Nidia Darby SOCK BOARDER 01/10/2014 Nurse visit Yvonne Cassidy MD 01/02/2014 Nurse visit Yvonne Cassidy MD 12/26/2013 Nurse visit Yvonne Cassidy MD 12/18/2013 Nurse visit Yvonne Cassidy MD 12/12/2013 Nurse visit Yvonne Cassidy MD 12/05/2013 Nurse visit Yvonne Cassidy MD 11/28/2013 Nurse visit Yvonne Cassidy MD 11/21/2013 Nurse visit Yvonne Cassidy MD 11/14/2013 Nurse visit Yvonne Cassidy MD 11/07/2013 Nurse visit Nidia Darby SOCK BOARDER 10/31/2013 Nurse visit Nidia Darby SOCK BOARDER 10/25/2013 Nurse visit Nidia Darby SOCK BOARDER 10/18/2013 Voided Nidia Darby SOCK BOARDER 10/10/2013 Voided Yvonne Cassidy MD 10/03/2013 Nurse [...] Mart MD 04/18/2013 Nurse visit Nidia Darby SOCK BOARDER 04/04/2013 Nurse visit Nidia Darby SOCK BOARDER 03/28/2013 Nurse visit Nidia Darby SOCK BOARDER 03/21/2013 Nurse visit Nidia Darby SOCK BOARDER 03/13/2013 Nurse visit Nidia Darby SOCK BOARDER 03/09/2013 Nurse visit Nidia Darby SOCK BOARDER 03/02/2013 Nurse visit Nidia Darby SOCK BOARDER 02/21/2013 Nurse visit Nidia Darby SOCK BOARDER 02/13/2013 Office visit Nidia Darby SOCK BOARDER 02/06/2013 Nurse visit Bria Mart MD 01/31/2013 [...] Mart MD 10/04/2012 Nurse visit Nidia Darby SOCK BOARDER 09/27/2012 Nurse visit Bria Mart MD 09/22/2012 [...] Mart MD 06/07/2012 Nurse visit Nidia Darby SOCK BOARDER 06/07/2012 Voided Francisco J Jesus DO 06/01/2012 [...] Mart MD 09/08/2011 Office visit Jessie Mock SOCK BOARDER 09/01/2011 Nurse visit Bria Mart MD 08/21/2011 Office visit Bria Matr MD 08/12/2011 Nurse visit Bria Mart MD [...]
--- OUTSIDE RECORDS SUMMARY | 2017-05-06 15:35 | XMS REPORT ---
Author Author Yvonne Cassidy Organization [facility] Address [address] [place], [place] [id number] Care Team Providers Care Game Moderator Name Role Phone Yvonne Cassidy PCP Yvonne [...] oral route once daily for 30 days Synthroid 137 mcg oral tablet 08/24/2016 take [...] Reviewed 08/21/2011 12:00 AM Depo-Medrol 40 mg [facility]#[id number] Reviewed 03/02/2016 12:00 AM IMMUNOTHERAPY INJECTIONS Reviewed [...] Reviewed 11/27/2011 12:00 AM Depo-Medrol 40 mg [facility]#[id number] Reviewed 12/01/2011 12:00 AM IMMUNOTHERAPY INJECTIONS Reviewed [...] 02/13/2013 12:00 AM Decadron, Per 1 Mg [facility]# [address]-24 Reviewed 02/13/2013 12:00 AM Depo-Medrol, Per 80 Mg [facility]#4582-4970-59 Reviewed 06/05/2013 12:00 AM MAMMOGRAM SCREENING Reviewed [...] CVX Influenza 06/02/2010 sanofi pasteur PMC Fluzone [id number] Intramuscular Left Deltoid 06/02/2010 02/25/2010 999 Influenza 05/09/2015 sanofi pasteur PMC Fluzone [id number] Intramuscular Left Deltoid 05/09/2015 02/22/2015 141 Pneumococcal 06/29/2016 Daavo[facility]Lgxqem-BcrpmskSudhir [facility] Prevnar 13 [id number] Intramuscular Right Deltoid 06/29/2016 09/14/2012 133 History [...] to other allergen Sep 02 2016 4:36PM Payers Insurance Name Company Name Plan Name Plan Number Policy Number Policy Group Number Start Date [facility] [id number] June [facility] Self Insurance Fund *INVALID State Self Insurance [id number] N/A Comp Nash Comp Nash [id number] Wednesday, 2015 History of Encounters Visit Date Visit Type Provider 09/02/2016 Nurse visit Yvonne Cassidy MD 08/25/2016 Nurse visit Yvonne Cassidy MD 08/19/2016 Nurse visit Yvonne Cassidy MD 08/13/2016 Nurse visit Yvonne Cassidy MD 08/04/2016 Nurse visit Yvonne Cassidy MD 07/29/2016 Nurse visit Yvonne Cassidy MD 07/14/2016 Nurse visit Donte Hastings DAIRY TRUCK DRIVER 07/06/2016 Nurse visit Yvonne Cassidy MD 06/29/2016 Nurse visit Yvonne Cassidy MD 06/24/2016 Nurse visit Yvonne Cassidy MD 06/16/2016 Office visit Yvonne Cassidy MD 06/14/2016 [facility] Alexander Park MD 06/09/2016 Nurse visit Yvonne Cassidy MD 06/02/2016 Office visit 06/02/2016 Office visit Karolyn Millan DAIRY TRUCK DRIVER 06/01/2016 Nurse visit Yvonne Cassidy MD 05/27/2016 Nurse visit Yvonne Cassidy MD 05/11/2016 Nurse visit Yvonne Cassidy MD 05/05/2016 Nurse visit Yvonne Cassidy MD 04/29/2016 Nurse visit Yvonne Cassidy MD 04/23/2016 Office visit Jessie Mock DAIRY TRUCK DRIVER 04/13/2016 Nurse visit Yvonne Cassidy MD 04/07/2016 Nurse visit Yvonne Cassidy MD 04/01/2016 Office visit Jessie Mock DAIRY TRUCK DRIVER 03/26/2016 Nurse visit Yvonne Cassidy MD 03/17/2016 Nurse visit Yvonne Cassidy MD 03/11/2016 Nurse visit Yvonne Cassidy MD 03/04/2016 Office visit Jessie Mock DAIRY TRUCK DRIVER 03/02/2016 Nurse visit Yvonne Cassidy MD 02/19/2016 Nurse visit Yvonne Cassidy MD 02/12/2016 Office visit Jessie Mock DAIRY TRUCK DRIVER 02/03/2016 Nurse visit Yvonne Cassidy MD 01/27/2016 Nurse visit Yvonne Cassidy MD 01/15/2016 Nurse visit Yvonne Cassidy MD 01/08/2016 Office visit Jessie Mock DAIRY TRUCK DRIVER 12/25/2015 Nurse visit Yvonne Cassidy MD 12/09/2015 Nurse visit Yvonne Cassidy MD 12/02/2015 Nurse visit Yvonne Cassidy MD 11/29/2015 Nurse visit Donte Darling DAIRY TRUCK DRIVER 11/28/2015 Nurse visit Jessie Mock DAIRY TRUCK DRIVER 11/27/2015 Office visit Jessie Mock DAIRY TRUCK DRIVER 11/25/2015 Office visit Donte Darling DAIRY TRUCK DRIVER 11/18/2015 Nurse visit Donte Hastings DAIRY TRUCK DRIVER 11/11/2015 Nurse visit Jessie Mock DAIRY TRUCK DRIVER 11/04/2015 Nurse visit Donte Hastings DAIRY TRUCK DRIVER 10/29/2015 Office visit Jessie Mock DAIRY TRUCK DRIVER 10/28/2015 Nurse visit Jessie Mock DAIRY TRUCK DRIVER 10/21/2015 Nurse visit Glenn Tejeda MD 10/15/2015 Nurse visit Francisco J Jesus DO 10/09/2015 Nurse visit Glenn Tejeda MD 10/02/2015 Office visit April Atkinson DAIRY TRUCK DRIVER 10/01/2015 Nurse visit Jessie Mock DAIRY TRUCK DRIVER 09/11/2015 Nurse visit Yvonne Cassidy MD 09/05/2015 [...] Office visit 05/29/2015 Office visit Karolyn Millan DAIRY TRUCK DRIVER 05/29/2015 Nurse visit Yvonne Cassidy MD 05/14/2015 Nurse visit Francisco J Jesus DO 05/09/2015 Nurse visit Yvonne Cassidy MD 04/30/2015 Nurse visit Yvonne Cassidy MD 04/23/2015 Nurse visit Yvonne Cassidy MD 04/18/2015 Nurse visit Nidia Darby DAIRY TRUCK DRIVER 04/09/2015 Nurse visit Yvonne Cassidy MD 04/01/2015 Nurse visit Yvonne Cassidy MD 03/27/[address] Cody Horvath MD 03/25/2015 [facility] Alexander Park MD 03/19/2015 Nurse visit Yvonne Cassidy MD 03/19/2015 Office visit Nidia Darby DAIRY TRUCK DRIVER 03/04/2015 Nurse visit Yvonne Cassidy MD 02/25/2015 [...] Office visit 12/31/2014 Office visit Karolyn Millan DAIRY TRUCK DRIVER 12/24/2014 Nurse visit Yvonne Cassidy MD 12/17/2014 Nurse visit Yvonne Cassidy MD 12/13/2014 Nurse visit Yvonne Cassidy MD 11/28/2014 Nurse visit Yvonne Cassidy MD 11/19/2014 Nurse visit Yvonne Cassidy MD 11/12/2014 Nurse visit Yvonne Cassidy MD 11/05/2014 Nurse visit Yvonne Cassidy MD 11/05/2014 [facility] Darin Park MD 10/29/2014 Nurse visit Yvonne Cassidy MD 10/24/2014 Nurse visit Yvonne Cassidy MD 10/15/2014 Nurse visit Yvonne Cassidy MD 10/11/2014 Office visit Karolyn Millan DAIRY TRUCK DRIVER 10/09/2014 Nurse visit Yvonne Cassidy MD 10/04/2014 Nurse visit Yvonne Cassidy MD 09/19/2014 Surgery Karolyn Millan DAIRY TRUCK DRIVER 09/13/2014 Office visit Yvonne Cassidy MD 09/06/2014 Nurse visit Yvonne Cassidy MD 08/28/2014 [facility] Chauncey Hogan MD 08/28/2014 [facility] Joe Thomas MD 08/23/2014 Nurse visit Yvonne Cassidy MD 08/22/2014 Surgery Joe Thomas MD 08/16/2014 Nurse visit Yvonne Cassidy MD 08/07/2014 Nurse visit Yvonne Cassidy MD 08/01/2014 Nurse visit Jessie Mock DAIRY TRUCK DRIVER 07/25/2014 Nurse visit Nidia Darby DAIRY TRUCK DRIVER 07/16/2014 Nurse visit Yvonne Cassidy MD 07/09/2014 [...] Cassidy MD 03/20/2014 Nurse visit Jessie Mock DAIRY TRUCK DRIVER 03/13/2014 Nurse visit Donte Hastings DAIRY TRUCK DRIVER 03/07/2014 Nurse visit Yvonne Cassidy MD 02/27/2014 Nurse visit Jessie Mock DAIRY TRUCK DRIVER 02/20/2014 Nurse visit Donte Hastings DAIRY TRUCK DRIVER 02/13/2014 Nurse visit Donte Hastings DAIRY TRUCK DRIVER 02/13/2014 Procedures Joe Thomas MD 02/07/2014 Office visit Joe Thomas MD 02/06/2014 Nurse visit Yvonne Cassidy MD 01/17/2014 Nurse visit Nidia Darby DAIRY TRUCK DRIVER 01/10/2014 Nurse visit Yvonne Cassidy MD 01/02/2014 Nurse visit Yvonne Cassidy MD 12/26/2013 Nurse visit Yvonne Cassidy MD 12/18/2013 Nurse visit Yvonne Cassidy MD 12/12/2013 Nurse visit Yvonne Cassidy MD 12/05/2013 Nurse visit Yvonne Cassidy MD 11/28/2013 Nurse visit Yvonne Cassidy MD 11/21/2013 Nurse visit Yvonne Cassidy MD 11/14/2013 Nurse visit Yvonne Cassidy MD 11/07/2013 Nurse visit Nidia Darby DAIRY TRUCK DRIVER 10/31/2013 Nurse visit Nidia Darby DAIRY TRUCK DRIVER 10/25/2013 Nurse visit Nidia Darby DAIRY TRUCK DRIVER 10/18/2013 Voided Nidia Darby DAIRY TRUCK DRIVER 10/10/2013 Voided Yvonne Cassidy MD 10/03/2013 Nurse [...] Mart MD 04/18/2013 Nurse visit Nidia Darby DAIRY TRUCK DRIVER 04/04/2013 Nurse visit Nidia Darby DAIRY TRUCK DRIVER 03/28/2013 Nurse visit Nidia Darby DAIRY TRUCK DRIVER 03/21/2013 Nurse visit Nidia Darby DAIRY TRUCK DRIVER 03/13/2013 Nurse visit Nidia Darby DAIRY TRUCK DRIVER 03/09/2013 Nurse visit Nidia Darby DAIRY TRUCK DRIVER 03/02/2013 Nurse visit Nidia Darby DAIRY TRUCK DRIVER 02/21/2013 Nurse visit Nidia Darby DAIRY TRUCK DRIVER 02/13/2013 Office visit Nidia Darby DAIRY TRUCK DRIVER 02/06/2013 Nurse visit Bria Mart MD 01/31/2013 [...] Mart MD 10/04/2012 Nurse visit Nidia Darby DAIRY TRUCK DRIVER 09/27/2012 Nurse visit Bria Mart MD 09/22/2012 [...] Mart MD 06/07/2012 Nurse visit Nidia Darby DAIRY TRUCK DRIVER 06/07/2012 Voided Francisco J Jesus DO 06/01/2012 [...] Mart MD 09/08/2011 Office visit Jessie Mock DAIRY TRUCK DRIVER 09/01/2011 Nurse visit Bria Mart MD 08/21/2011 [...]
--- OUTSIDE RECORDS SUMMARY | 2017-05-06 15:37 | XMS REPORT ---
Author Author Yvonne Cassidy [facility] Address [address] [place], [place] [id number] Care Team Providers Care Circular Gang Saw Operator Name Role Phone Yvonne Cassidy PCP Allergies and Adverse Reactions Name Reaction Notes Ceftin rash Erythromycin rash PENICILLINS rash Plan of Treatment Planned Activity Comments Planned Date Planned Time Plan/Goal IMMUNOTHERAPY INJECTIONS 04/09/2015 12:00 AM IMMUNOTHERAPY INJECTIONS 01/05/2012 12:00 AM [...] 05/18/2013 Stress Incontinence, Female Active 05/18/2013 Urge Incontinence Active 05/18/2013 Breast [...] Reviewed 08/21/2011 12:00 AM Depo-Medrol 40 mg [facility]#[id number] Reviewed 09/08/2011 12:00 AM IMMUNOTHERAPY INJECTIONS Reviewed [...] Reviewed 11/27/2011 12:00 AM Depo-Medrol 40 mg [facility]#[id number] Reviewed 12/01/2011 12:00 AM IMMUNOTHERAPY INJECTIONS Reviewed [...] Per 1 Mg [facility]# [address]-58 Reviewed 02/13/2013 12:00 AM Depo-Medrol, Per 80 Mg [facility]#6951-1714-05 Reviewed 06/05/2013 12:00 AM MAMMOGRAM SCREENING Returned [...] BILI 0.50 mg/dLCALCIUM 10.10 mg/dLeGFR >60 mL/min/1.73 [id number] 10.0 secsINR 1.0 PTT 28.20 secs 08/28/2014 [...] m2 History Of Immunizations Name Date Admin [facility] Name Mfg Code Trade Name Lot# Route Inj Vis Given Vis Pub CVX Influenza 06/02/2010 sanofi pasteur PMC Fluzone [id number] Intramuscular Left Deltoid 06/02/2010 02/25/2010 999 History of Past Illness Name Date of Onset Comments Asthma Hypertension hypothyroid Headache Migraine Kidney Stones Routine gynecological examination Nov 07 2009 3:01PM Hypertension Nov 07 2009 3:01PM Hypothyroidism, Acquired Nov 07 2009 3:01PM Depressive Disorder Nov 07 2009 3:01PM Vaginal Discharge Nov 07 2009 3:01PM Vitamin D deficiency Hypothyroidism 05/18/2013 Stress Incontinence, Female 05/18/2013 Urge Incontinence 05/18/2013 Essential Hypertension May [...] to other allergen Apr 09 2015 2:51PM Payers Insurance Name Company Name Plan Name Plan Number Policy Number Policy Group Number Start Date [facility] [id number] [place] Self Insurance [place] *INVALID State Self Insurance [id number] N /A History of Encounters Visit Date Visit Type Provider 04/09/2015 Nurse visit Yvonne Cassidy MD 04/01/2015 Nurse visit Yvonne Cassidy MD 03/27/[address] Cody Horvath MD 03/19/2015 Nurse visit Yvonne Cassidy MD 03/19/2015 Office visit Nidia Darby INSTRUMENT INSPECTOR 03/04/2015 Nurse visit Yvonne Cassidy MD 02/25/2015 [...] Cassidy MD 12/31/2014 Office visit Karolyn Millan INSTRUMENT INSPECTOR 12/24/2014 Nurse visit Yvonne Cassidy MD 12/17/2014 [...] Cassidy MD 10/11/2014 Office visit Karolyn Millan INSTRUMENT INSPECTOR 10/09/2014 Nurse visit Yvonne Cassidy MD 10/04/2014 Nurse visit Yvonne Cassidy MD 09/19/2014 Surgery Karolyn Millan INSTRUMENT INSPECTOR 09/13/2014 Office visit Yvonne Cassidy MD 09/06/2014 Nurse visit Yvonne Cassidy MD 08/28/2014 [facility] Chauncey Hogan MD 08/28/2014 [facility] Joe Thomas MD 08/23/2014 Nurse visit Yvonne Cassidy MD 08/22/2014 Surgery Joe Thomas MD 08/16/2014 Nurse visit Yvonne Cassidy MD 08/07/2014 Nurse visit Yvonne Cassidy MD 08/01/2014 Nurse visit Jessie Mock INSTRUMENT INSPECTOR 07/25/2014 Nurse visit Nidia Darby INSTRUMENT INSPECTOR 07/16/2014 Nurse visit Yvonne Cassidy MD 07/09/2014 [...] Cassidy MD 03/20/2014 Nurse visit Jessie Mock INSTRUMENT INSPECTOR 03/13/2014 Nurse visit Donte Hastings INSTRUMENT INSPECTOR 03/07/2014 Nurse visit Yvonne Cassidy MD 02/27/2014 Nurse visit Jessie Mock INSTRUMENT INSPECTOR 02/20/2014 Nurse visit Donte Hastings INSTRUMENT INSPECTOR 02/13/2014 Nurse visit Donte Hastings INSTRUMENT INSPECTOR 02/13/2014 Procedures Joe Thomas MD 02/07/2014 Office visit Joe Thomas MD 02/06/2014 Nurse visit Yvonne Cassidy MD 01/17/2014 Nurse visit Nidia Darby INSTRUMENT INSPECTOR 01/10/2014 Nurse visit Yvonne Cassidy MD 01/02/2014 Nurse visit Yvonne Cassidy MD 12/26/2013 Nurse visit Yvonne Cassidy MD 12/18/2013 Nurse visit Yvonne Cassidy MD 12/12/2013 Nurse visit Yvonne Cassidy MD 12/05/2013 Nurse visit Yvonne Cassidy MD 11/28/2013 Nurse visit Yvonne Cassidy MD 11/21/2013 Nurse visit Yvonne Cassidy MD 11/14/2013 Nurse visit Yvonne Cassidy MD 11/07/2013 Nurse visit Nidia Darby INSTRUMENT INSPECTOR 10/31/2013 Nurse visit Nidia Darby INSTRUMENT INSPECTOR 10/25/2013 Nurse visit Nidia Darby INSTRUMENT INSPECTOR 10/18/2013 Voided Nidia Darby INSTRUMENT INSPECTOR 10/10/2013 Voided Yvonne Cassidy MD 10/03/2013 Nurse [...] Mart MD 04/18/2013 Nurse visit Nidia Darby INSTRUMENT INSPECTOR 04/04/2013 Nurse visit Nidia Darby INSTRUMENT INSPECTOR 03/28/2013 Nurse visit Nidai Darby INSTRUMENT INSPECTOR 03/21/2013 Nurse visit Nidia Darby INSTRUMENT INSPECTOR 03/13/2013 Nurse visit Nidia Darby INSTRUMENT INSPECTOR 03/09/2013 Nurse visit Nidia Darby INSTRUMENT INSPECTOR 03/02/2013 Nurse visit Nidia Darby INSTRUMENT INSPECTOR 02/21/2013 Nurse visit Nidia Darby INSTRUMENT INSPECTOR 02/13/2013 Office visit Nidia Darby INSTRUMENT INSPECTOR 02/06/2013 Nurse visit Bria Mart MD 01/31/2013 [...] Mart MD 10/04/2012 Nurse visit Nidia Darby INSTRUMENT INSPECTOR 09/27/2012 Nurse visit Bria Mart MD 09/22/2012 [...] Mart MD 06/07/2012 Nurse visit Nidia Darby INSTRUMENT INSPECTOR 06/07/2012 Voided Francisco J Jesus DO 06/01/2012 [...] Mart MD 09/08/2011 Office visit Jessie Mock INSTRUMENT INSPECTOR 09/01/2011 Nurse visit Bria Mart MD 08/21/2011 [...]
--- OUTSIDE RECORDS SUMMARY | 2017-05-06 15:41 | XMS REPORT ---
Author Author Yvonne Cassidy Organization [facility] Address [address] [place], [place] [id number] Care Team Providers Care Hat Former Name Role Phone Yvonne Cassidy PCP Yvonne [...] mg [facility]#[id number] Reviewed 03/02/2016 12:00 AM IMMUNOTHERAPY INJECTIONS Reviewed [...] mg [facility]#[id number] Reviewed 12/01/2011 12:00 AM IMMUNOTHERAPY INJECTIONS Reviewed [...] Reviewed 03/15/2017 12:00 AM IMMUNOTHERAPY INJECTIONS Reviewed 03/24/2017 12:00 AM IMMUNOTHERAPY INJECTIONS Reviewed 03/30/2017 12:00 AM IMMUNOTHERAPY INJECTIONS Reviewed 04/21/2012 12:00 [...] [facility]# [address]-12 Reviewed 02/13/2013 12:00 AM Depo-Medrol, Per 80 Mg [facility]#2412-1723-28 Reviewed 06/05/2013 12:00 AM MAMMOGRAM SCREENING Reviewed [...] CVX Influenza 06/02/2010 sanofi pasteur PMC Fluzone [id number] Intramuscular Left Deltoid 06/02/2010 02/25/2010 999 Influenza 05/09/2015 sanofi pasteur PMC Fluzone [id number] Intramuscular Left Deltoid 05/09/2015 02/22/2015 141 Pneumococcal 06/29/2016 Bvhlp-Vnmjdf-Qlgsejy-Praxis W[facility] Prevnar 13 [id number] Intramuscular Right Deltoid 06/29/2016 09/14/2012 133 Zostavax [...] to other allergen Mar 30 2017 4:14PM Payers Insurance Name Company Name Plan Name Plan Number Policy Number Policy Group Number Start Date [facility] [id number] June [facility] Self Insurance Fund *INVALID State Self Insurance [id number] N/A Comp [place] [id number] Wednesday, 2015 History of Encounters Visit Date Visit Type Provider 03/30/2017 Nurse visit Yvonne Cassidy MD 03/24/2017 [...] Cassidy MD 07/14/2016 Nurse visit Donte Hastings DIGITAL PROGRAM MANAGER 07/06/2016 Nurse visit Yvonne Cassidy MD 06/29/2016 Nurse visit Yvonne Cassidy MD 06/24/2016 Nurse visit Yvonne Cassidy MD 06/16/2016 Office visit Yvonne Cassidy MD 06/14/2016 [facility] [place] MD 06/09/2016 Nurse visit Yvonne Cassidy MD 06/02/2016 Office visit 06/02/2016 Office visit Karolyn Millan DIGITAL PROGRAM MANAGER 06/01/2016 Nurse visit Yvonne Cassidy MD 05/27/2016 Nurse visit Yvonne Cassidy MD 05/11/2016 Nurse visit Yvonne Cassidy MD 05/05/2016 Nurse visit Yvonne Cassidy MD 04/29/2016 Nurse visit Yvonne Cassidy MD 04/23/2016 Office visit Jessie Mock DIGITAL PROGRAM MANAGER 04/13/2016 Nurse visit Yvonne Cassidy MD 04/07/2016 Nurse visit Yvonne Cassidy MD 04/01/2016 Office visit Jessie Mock DIGITAL PROGRAM MANAGER 03/26/2016 Nurse visit Yvonne Cassidy MD 03/17/2016 Nurse visit Yvonne Cassidy MD 03/11/2016 Nurse visit Yvonne Cassidy MD 03/04/2016 Office visit Jessie Mock DIGITAL PROGRAM MANAGER 03/02/2016 Nurse visit Yvonne Cassidy MD 02/19/2016 Nurse visit Yvonne Cassidy MD 02/12/2016 Office visit Jessie Mock DIGITAL PROGRAM MANAGER 02/03/2016 Nurse visit Yvonne Cassidy MD 01/27/2016 Nurse visit Yvonne Cassidy MD 01/15/2016 Nurse visit Yvonne Cassidy MD 01/08/2016 Office visit Jessie Mock DIGITAL PROGRAM MANAGER 12/25/2015 Nurse visit Yvonne Cassidy MD 12/09/2015 Nurse visit Yvonne Cassidy MD 12/02/2015 Nurse visit Yvonne Cassidy MD 11/29/2015 Nurse visit Donte Hastings DIGITAL PROGRAM MANAGER 11/28/2015 Nurse visit Jessie Mock DIGITAL PROGRAM MANAGER 11/27/2015 Office visit Jessie Mock DIGITAL PROGRAM MANAGER 11/25/2015 Office visit Donte Hastings DIGITAL PROGRAM MANAGER 11/18/2015 Nurse visit Donte Hastings DIGITAL PROGRAM MANAGER 11/11/2015 Nurse visit Jessie Mock DIGITAL PROGRAM MANAGER 11/04/2015 Nurse visit Donte Hastings DIGITAL PROGRAM MANAGER 10/29/2015 Office visit Jessie Mock DIGITAL PROGRAM MANAGER 10/28/2015 Nurse visit Jessie Mock DIGITAL PROGRAM MANAGER 10/21/2015 Nurse visit Glenn Tejeda MD 10/15/2015 Nurse visit Francisco J Jesus DO 10/09/2015 Nurse visit Glenn Tejeda MD 10/02/2015 Office visit April Deepakgordy DIGITAL PROGRAM MANAGER 10/01/2015 Nurse visit Jessie Mock DIGITAL PROGRAM MANAGER 09/11/2015 Nurse visit Yvonne Cassidy MD [...] Office visit 05/29/2015 Office visit Karolyn Millan DIGITAL PROGRAM MANAGER 05/29/2015 Nurse visit Yvonne Cassidy MD 05/14/2015 Nurse visit Francisco J Jesus DO 05/09/2015 Nurse visit Yvonne Cassidy MD 04/30/2015 Nurse visit Yvonne Cassidy MD 04/23/2015 Nurse visit Yvonne Cassidy MD 04/18/2015 Nurse visit Nidia Darby DIGITAL PROGRAM MANAGER 04/09/2015 Nurse visit Yvonne Cassidy MD 04/01/2015 Nurse visit Yvonne Cassidy MD 03/27/[address] Cody Horvath MD 03/25/2015 [facility] [place] MD 03/19/2015 Nurse visit Yvonne Cassidy MD 03/19/2015 Office visit Nidia Darby DIGITAL PROGRAM MANAGER 03/04/2015 Nurse visit Yvonne Cassidy MD [...] Office visit 12/31/2014 Office visit Karolyn Millan DIGITAL PROGRAM MANAGER 12/24/2014 Nurse visit Yvonne Cassidy MD 12/17/2014 Nurse visit Yvonne Cassidy MD 12/13/2014 Nurse visit Yvonne Cassidy MD 11/28/2014 Nurse visit Yvonne Cassidy MD 11/19/2014 Nurse visit Yvonne Cassidy MD 11/12/2014 Nurse visit Yvonne Cassidy MD 11/05/2014 Nurse visit Yvonne Cassidy MD 11/05/2014 [facility] [place] MD 10/29/2014 Nurse visit Yvonne Cassidy MD 10/24/2014 Nurse visit Yvonne Cassidy MD 10/15/2014 Nurse visit Yvonne Cassidy MD 10/11/2014 Office visit Karolyn Millan DIGITAL PROGRAM MANAGER 10/09/2014 Nurse visit Yvonne Cassidy MD 10/04/2014 Nurse visit Yvonne Cassidy MD 09/19/2014 Surgery Karolyn Millan DIGITAL PROGRAM MANAGER 09/13/2014 Office visit Yvonne Cassidy MD 09/06/2014 Nurse visit Yvonne Cassidy MD 08/28/2014 [facility] Chauncey Hogan MD 08/28/2014 [facility] Joe Thomas MD 08/23/2014 Nurse visit Yvonne Cassidy MD 08/22/2014 Surgery Joe Thomas MD 08/16/2014 Nurse visit Yvonne Cassidy MD 08/07/2014 Nurse visit Yvonne Cassidy MD 08/01/2014 Nurse visit Jessie Mock DIGITAL PROGRAM MANAGER 07/25/2014 Nurse visit Nidia Darby DIGITAL PROGRAM MANAGER 07/16/2014 Nurse visit Yvonne Cassidy MD [...] Cassidy MD 03/20/2014 Nurse visit Jessie Mock DIGITAL PROGRAM MANAGER 03/13/2014 Nurse visit Donte Hastings DIGITAL PROGRAM MANAGER 03/07/2014 Nurse visit Yvonne Cassidy MD 02/27/2014 Nurse visit Jessie Mock DIGITAL PROGRAM MANAGER 02/20/2014 Nurse visit Donte Hastings DIGITAL PROGRAM MANAGER 02/13/2014 Nurse visit Donte Hastings DIGITAL PROGRAM MANAGER 02/13/2014 Procedures Joe Thomas MD 02/07/2014 Office visit Joe Thomas MD 02/06/2014 Nurse visit Yvonne Cassidy MD 01/17/2014 Nurse visit Nidia Darby DIGITAL PROGRAM MANAGER 01/10/2014 Nurse visit Yvonne Cassidy MD 01/02/2014 Nurse visit Yvonne Cassidy MD 12/26/2013 Nurse visit Yvonne Cassidy MD 12/18/2013 Nurse visit Yvonne Cassidy MD 12/12/2013 Nurse visit Yvonne Cassidy MD 12/05/2013 Nurse visit Yvonne Cassidy MD 11/28/2013 Nurse visit Yvonne Cassidy MD 11/21/2013 Nurse visit Yvonne Cassidy MD 11/14/2013 Nurse visit Yvonne Cassidy MD 11/07/2013 Nurse visit Nidia Darby DIGITAL PROGRAM MANAGER 10/31/2013 Nurse visit Nidia Darby DIGITAL PROGRAM MANAGER 10/25/2013 Nurse visit Nidia Darby DIGITAL PROGRAM MANAGER 10/18/2013 Voided Nidia Darby DIGITAL PROGRAM MANAGER 10/10/2013 Voided Yvonne Cassidy MD 10/03/2013 [...] Mart MD 04/18/2013 Nurse visit Nidia Darby DIGITAL PROGRAM MANAGER 04/04/2013 Nurse visit Nidia Darby DIGITAL PROGRAM MANAGER 03/28/2013 Nurse visit Nidia Darby DIGITAL PROGRAM MANAGER 03/21/2013 Nurse visit Nidia Darby DIGITAL PROGRAM MANAGER 03/13/2013 Nurse visit Nidia Darby DIGITAL PROGRAM MANAGER 03/09/2013 Nurse visit Nidia Darby DIGITAL PROGRAM MANAGER 03/02/2013 Nurse visit Nidia Darby DIGITAL PROGRAM MANAGER 02/21/2013 Nurse visit Nidia Darby DIGITAL PROGRAM MANAGER 02/13/2013 Office visit Nidia Darby DIGITAL PROGRAM MANAGER 02/06/2013 Nurse visit Bria Mart MD [...] Mart MD 10/04/2012 Nurse visit Nidia Darby DIGITAL PROGRAM MANAGER 09/27/2012 Nurse visit Bria Mart MD [...] Mart MD 06/07/2012 Nurse visit Nidia Darby DIGITAL PROGRAM MANAGER 06/07/2012 Voided Francisco J Jesus DO 06/01/2012 Office visit Bria Mart MD 05/24/2012 Nurse visit Bria Mart MD 05/17/2012 Nurse visit Bria Mart MD 05/10/2012 Nurse visit Bria Mart MD 05/03/2012 Nurse visit Bria Mart MD 04/26/2012 Nurse visit Bria Mart MD 04/21/2012 Nurse visit Bira Mart MD 04/12/2012 Nurse visit Bria Mart [...] Mart MD 09/08/2011 Office visit Jessie Mock DIGITAL PROGRAM MANAGER 09/01/2011 Nurse visit Bria Mart MD [...]
--- OUTSIDE RECORDS SUMMARY | 2017-05-06 15:44 | XMS REPORT ---
Author Author Yvonne Cassidy Organization [facility] Address [address] [place], [place] [id number] Care Team Providers Care Vet Assistant Name Role Phone Yvonne Cassidy PCP Yvonne Cassidy PreferredProvider Allergies and Adverse Reactions Name Reaction Notes Ceftin rash erythromycin rash PENICILLINS rash Plan of Treatment Planned Activity Comments Planned Date Planned Time Plan/Goal Allergy Injection Multiple 04/18/2015 12:00 AM Allergy Injection Multiple 03/27/2015 12:00 AM Allergy Injection Multiple 07/22/2015 12:00 AM Allergy Injection Multiple 11/11/2015 12:00 AM EKG. 04/23/2016 12:00 AM Thyroid stimulating hormone (TSH) 06/16/2016 12:00 AM Allergy Injection Multiple 01/05/2012 12:00 [...] TAKE 1 TABLET BY MOUTH ONCE DAILY Synthroid 150 mcg oral tablet 04/27/2016 06/26/2016 [...] thigh, or upper arm for 30 days Name Start Date Expiration [...] Reviewed 08/21/2011 12:00 AM Depo-Medrol 40 mg [facility]#[id number] Reviewed 03/02/2016 12:00 AM IMMUNOTHERAPY INJECTIONS Reviewed [...] Reviewed 06/16/2016 12:00 AM IMMUNOTHERAPY INJECTIONS Reviewed 10/29/2011 12:00 AM IMMUNOTHERAPY INJECTIONS Reviewed 11/03/2011 12:00 AM IMMUNOTHERAPY INJECTIONS Reviewed 11/10/2011 12:00 AM IMMUNOTHERAPY INJECTIONS Reviewed 11/17/2011 12:00 AM IMMUNOTHERAPY INJECTIONS Reviewed 11/27/2011 12:00 AM THER/PROPH/DIAG INJ SC/IM Reviewed 11/27/2011 12:00 AM Depo-Medrol 40 mg [facility]#[id number] Reviewed 12/01/2011 12:00 AM IMMUNOTHERAPY INJECTIONS Reviewed [...] 02/13/2013 12:00 AM Decadron, Per 1 Mg [facility]# [address]-98 Reviewed 02/13/2013 12:00 AM Depo-Medrol, Per 80 Mg [facility]#2486-7890-69 Reviewed 06/05/2013 12:00 AM MAMMOGRAM SCREENING Reviewed [...] CVX Influenza 06/02/2010 sanofi pasteur PMC Fluzone [id number] Intramuscular Left Deltoid 06/02/2010 02/25/2010 999 Influenza 05/09/2015 sanofi pasteur PMC Fluzone [id number] Intramuscular Left Deltoid 05/09/2015 02/22/2015 141 History [...] 9:19AM Hypothyroidism, Acquired Jun 16 2016 2:19PM Payers Insurance Name Company Name Plan Name Plan Number Policy Number Policy Group Number Start Date [facility] [id number] June [facility] Self Insurance Fund *INVALID State Self Insurance [id number] N/A [place] [id number] Wednesday, 2015 History of Encounters Visit Date Visit Type Provider 06/16/2016 Office visit Yvonne Cassidy MD 06/09/2016 Nurse visit Yvonne Cassidy MD 06/02/2016 Office visit 06/02/2016 Office visit Karolyn Millan APRN 06/01/2016 Nurse visit Yvonne Cassidy MD 05/27/2016 Nurse visit Yvonne Cassidy MD 05/11/2016 Nurse visit Yvonne Cassidy MD 05/05/2016 Nurse visit Yvonne Cassidy MD 04/29/2016 Nurse visit Yvonne Cassidy MD 04/23/2016 Office visit Jessie Mock LIQUOR ESTABLISHMENT MANAGER 04/13/2016 Nurse visit Yvonne Cassidy MD 04/07/2016 Nurse visit Yvonne Cassidy MD 04/01/2016 Office visit Jessie Mock LIQUOR ESTABLISHMENT MANAGER 03/26/2016 Nurse visit Yvonne Cassidy MD 03/17/2016 Nurse visit Yvonne Cassidy MD 03/11/2016 Nurse visit Yvonne Cassidy MD 03/04/2016 Office visit Jessie Mock LIQUOR ESTABLISHMENT MANAGER 03/02/2016 Nurse visit Yvonne Cassidy MD 02/19/2016 Nurse visit Yvonne Cassidy MD 02/12/2016 Office visit Jessie Mock LIQUOR ESTABLISHMENT MANAGER 02/03/2016 Nurse visit Yvonne Cassidy MD 01/27/2016 Nurse visit Yvonne Cassidy MD 01/15/2016 Nurse visit Yvonne Cassidy MD 01/08/2016 Office visit Jessie Mock LIQUOR ESTABLISHMENT MANAGER 12/25/2015 Nurse visit Yvonne Cassidy MD 12/09/2015 Nurse visit Yvonne Cassidy MD 12/02/2015 Nurse visit Yvonne Cassidy MD 11/29/2015 Nurse visit Donte Hastings LIQUOR ESTABLISHMENT MANAGER 11/28/2015 Nurse visit Jessie Mock LIQUOR ESTABLISHMENT MANAGER 11/27/2015 Office visit Jessie Mock LIQUOR ESTABLISHMENT MANAGER 11/25/2015 Office visit Donte Hastings LIQUOR ESTABLISHMENT MANAGER 11/18/2015 Nurse visit Donte Hastings LIQUOR ESTABLISHMENT MANAGER 11/11/2015 Nurse visit Jessie Mock LIQUOR ESTABLISHMENT MANAGER 11/04/2015 Nurse visit Donte Hastings LIQUOR ESTABLISHMENT MANAGER 10/29/2015 Office visit Jessie Mock LIQUOR ESTABLISHMENT MANAGER 10/28/2015 Nurse visit Jessie Mock LIQUOR ESTABLISHMENT MANAGER 10/21/2015 Nurse visit Glenn Tejeda MD 10/15/2015 Nurse visit Francisco J Jesus DO 10/09/2015 Nurse visit Glenn Tejeda MD 10/02/2015 Office visit April Atkinson LIQUOR ESTABLISHMENT MANAGER 10/01/2015 Nurse visit Jessie Mock LIQUOR ESTABLISHMENT MANAGER 09/11/2015 Nurse visit Yvonne Cassidy MD [...] Office visit 05/29/2015 Office visit Karolyn Millan LIQUOR ESTABLISHMENT MANAGER 05/29/2015 Nurse visit Yvonne Cassidy MD 05/14/2015 Nurse visit Francisco J Jesus DO 05/09/2015 Nurse visit Yvonne Cassidy MD 04/30/2015 Nurse visit Yvonne Cassidy MD 04/23/2015 Nurse visit Yvonne Cassidy MD 04/18/2015 Nurse visit Nidia Darby LIQUOR ESTABLISHMENT MANAGER 04/09/2015 Nurse visit Yvonne Cassidy MD 04/01/2015 Nurse visit Yvonne Cassidy MD 03/27/[address] Cody Horvath MD 03/25/2015 [facility] [place] MD 03/19/2015 Nurse visit Yvonne Cassidy MD 03/19/2015 Office visit Nidia Darby LIQUOR ESTABLISHMENT MANAGER 03/04/2015 Nurse visit Yvonne Cassidy MD [...] Office visit 12/31/2014 Office visit Karolyn Millan LIQUOR ESTABLISHMENT MANAGER 12/24/2014 Nurse visit Yvonne Cassidy MD 12/17/2014 Nurse visit Yvonne Cassidy MD 12/13/2014 Nurse visit Yvonne Cassidy MD 11/28/2014 Nurse visit Yvonne Cassidy MD 11/19/2014 Nurse visit Yvonne Cassidy MD 11/12/2014 Nurse visit Yvonne Cassidy MD 11/05/2014 Nurse visit Yvonne Cassidy MD 11/05/2014 [facility] [place] MD 10/29/2014 Nurse visit Yvonne Cassidy MD 10/24/2014 Nurse visit Yvonne Cassidy MD 10/15/2014 Nurse visit Yvonne Cassidy MD 10/11/2014 Office visit Karolyn Millan LIQUOR ESTABLISHMENT MANAGER 10/09/2014 Nurse visit Yvonne Cassidy MD 10/04/2014 Nurse visit Yvonne Cassidy MD 09/19/2014 Surgery Karolyn Millan LIQUOR ESTABLISHMENT MANAGER 09/13/2014 Office visit Yvonne Cassidy MD 09/06/2014 Nurse visit Yvonne Cassidy MD 08/28/2014 Hospital Chauncey Hogan MD 08/28/2014 Hospital Joe Thomas MD 08/23/2014 Nurse visit Yvonne Cassidy MD 08/22/2014 Surgery Joe Thomas MD 08/16/2014 Nurse visit Yvonne Cassidy MD 08/07/2014 Nurse visit Yvonne Cassidy MD 08/01/2014 Nurse visit Jessie Mock LIQUOR ESTABLISHMENT MANAGER 07/25/2014 Nurse visit Nidia Darby LIQUOR ESTABLISHMENT MANAGER 07/16/2014 Nurse visit Yvonne Cassidy MD [...] Cassidy MD 03/20/2014 Nurse visit Jessie Mock LIQUOR ESTABLISHMENT MANAGER 03/13/2014 Nurse visit Donte Hastings LIQUOR ESTABLISHMENT MANAGER 03/07/2014 Nurse visit Yvonne Cassidy MD 02/27/2014 Nurse visit Jessie Mock LIQUOR ESTABLISHMENT MANAGER 02/20/2014 Nurse visit Donte Hastings LIQUOR ESTABLISHMENT MANAGER 02/13/2014 Nurse visit Donte Hastings LIQUOR ESTABLISHMENT MANAGER 02/13/2014 Procedures Joe Thomas MD 02/07/2014 Office visit Joe Thomas MD 02/06/2014 Nurse visit Yvonne Cassidy MD 01/17/2014 Nurse visit Nidia Darby LIQUOR ESTABLISHMENT MANAGER 01/10/2014 Nurse visit Yvonne Cassidy MD 01/02/2014 Nurse visit Yvonne Cassidy MD 12/26/2013 Nurse visit Yvonne Cassidy MD 12/18/2013 Nurse visit Yvonne Cassidy MD 12/12/2013 Nurse visit Yvonne Cassidy MD 12/05/2013 Nurse visit Yvonne Cassidy MD 11/28/2013 Nurse visit Yvonne Cassidy MD 11/21/2013 Nurse visit Yvonne Cassidy MD 11/14/2013 Nurse visit Yvonne Cassidy MD 11/07/2013 Nurse visit Nidia Darby LIQUOR ESTABLISHMENT MANAGER 10/31/2013 Nurse visit Nidia Darby LIQUOR ESTABLISHMENT MANAGER 10/25/2013 Nurse visit Nidia Daryb LIQUOR ESTABLISHMENT MANAGER 10/18/2013 Voided Nidia Darby LIQUOR ESTABLISHMENT MANAGER 10/10/2013 Voided Yvonne Cassidy MD 10/03/2013 [...] MD 04/18/2013 Nurse visit Nidia Sheridan Darby LIQUOR ESTABLISHMENT MANAGER 04/04/2013 Nurse visit Nidia Darby LIQUOR ESTABLISHMENT MANAGER 03/28/2013 Nurse visit Nidia Darby LIQUOR ESTABLISHMENT MANAGER 03/21/2013 Nurse visit Nidia Darby LIQUOR ESTABLISHMENT MANAGER 03/13/2013 Nurse visit Nidia Darby LIQUOR ESTABLISHMENT MANAGER 03/09/2013 Nurse visit Nidiafarideh Darby LIQUOR ESTABLISHMENT MANAGER 03/02/2013 Nurse visit Nidia Darby LIQUOR ESTABLISHMENT MANAGER 02/21/2013 Nurse visit Nidia Darby LIQUOR ESTABLISHMENT MANAGER 02/13/2013 Office visit Nidia Darby LIQUOR ESTABLISHMENT MANAGER 02/06/2013 Nurse visit Bria Mart MD 01/31/2013 Nurse visit Bria Mart MD 01/24/2013 Nurse visit Bria Mart MD 01/17/2013 Nurse visit Bria Mart MD 01/10/2013 Nurse visit Bria Mart MD 01/02/2013 Nurse visit Bria Mart MD 12/20/2012 Nurse visit Bria Mart MD 12/14/2012 Nurse visit Bria Mart MD 12/06/2012 Nurse visit Bria Mart MD 11/29/2012 Nurse visit Bira Mart MD 11/22/2012 Nurse visit Bria Mart MD 11/15/2012 Nurse visit Bria Mart MD 11/08/2012 Nurse visit Bria Mart MD 11/01/2012 Nurse visit Bria Mart MD 10/25/2012 Nurse visit Bria Mart MD 10/18/2012 Nurse visit Bria Mart MD 10/11/2012 Nurse visit Bria Mart MD 10/04/2012 Nurse visit Nidia Darby LIQUOR ESTABLISHMENT MANAGER 09/27/2012 Nurse visit Bria Mart MD [...] MD 06/07/2012 Nurse visit Nidia Sheridan Darby LIQUOR ESTABLISHMENT MANAGER 06/07/2012 Voided Francisco J Frazierte DO 06/01/2012 Office visit Bria Mart MD [...] Mart MD 09/08/2011 Office visit Jessie Mock LIQUOR ESTABLISHMENT MANAGER 09/01/2011 Nurse visit Bria Mart MD [...]
--- OUTSIDE RECORDS SUMMARY | 2017-05-06 15:47 | XMS REPORT ---
Author Author Jessie Mock [facility] Address [address] [place], [place] [id number] Care Team Providers Care Air Traffic Control Operator Name Role Phone Jessie Mock PCP Unavailable Allergies and Adverse Reactions Name Reaction Notes Ceftin rash Erythromycin rash PENICILLINS rash Plan of Treatment Planned Activity Comments Planned Date Planned Time Plan/Goal IMMUNOTHERAPY INJECTIONS 04/18/2015 12:00 AM IMMUNOTHERAPY INJECTIONS 03/27/2015 12:00 AM IMMUNOTHERAPY INJECTIONS 07/22/2015 12:00 AM IMMUNOTHERAPY INJECTIONS 10/01/2015 12:00 AM IMMUNOTHERAPY INJECTIONS 01/05/2012 12:00 AM [...] route once daily for 90 days hydrochlorothiazide 12.5 mg oral capsule 09/19/2014 [...] Reviewed 08/21/2011 12:00 AM Depo-Medrol 40 mg N[facility]#[id number] Reviewed 09/08/2011 12:00 AM IMMUNOTHERAPY INJECTIONS Reviewed [...] Reviewed 11/27/2011 12:00 AM Depo-Medrol 40 mg NDC#[id number] Reviewed 12/01/2011 12:00 AM IMMUNOTHERAPY INJECTIONS Reviewed [...] 02/13/2013 12:00 AM Decadron, Per 1 Mg [facility]# [id number] Reviewed 02/13/2013 12:00 AM Depo-Medrol, Per 80 Mg [facility]#[id number] Reviewed 06/05/2013 12:00 AM MAMMOGRAM SCREENING Returned [...] BILI 0.50 mg/dLCALCIUM 10.10 mg/dLeGFR >60 mL/min/1.73 [id number] 10.0 secsINR 1.0 PTT 28.20 secs 08/28/2014 [...] CVX Influenza 06/02/2010 sanofi pasteur PMC Fluzone [id number] Intramuscular Left Deltoid 06/02/2010 02/25/2010 999 Influenza 05/09/2015 sanofi pasteur PMC Fluzone [id number] Intramuscular Left Deltoid 05/09/2015 02/22/2015 141 History [...] to other allergen Oct 01 2015 3:37PM Payers Insurance Name Company Name Plan Name Plan Number Policy Number Policy Group Number Start Date [facility] [id number] June [facility] Self Insurance Fund *INVALID [facility] Self Insurance [id number] N/A History of Encounters Visit Date Visit Type Provider 10/01/2015 Nurse visit Jessie Mock WAREHOUSE FOREMAN 09/11/2015 Nurse visit Yvonne Cassidy MD 09/05/2015 [...] Office visit 05/29/2015 Office visit Karolyn Millan WAREHOUSE FOREMAN 05/29/2015 Nurse visit Yvonne Cassidy MD 05/14/2015 Nurse visit Francisco J Jesus DO 05/09/2015 Nurse visit Yvonne Cassidy MD 04/30/2015 Nurse visit Yvonne Cassidy MD 04/23/2015 Nurse visit Yvonne Cassidy MD 04/18/2015 Nurse visit Nidia Darby WAREHOUSE FOREMAN 04/09/2015 Nurse visit Yvonne Cassidy MD 04/01/2015 Nurse visit Yvonne Cassidy MD 03/27/[address] Cody Horvath MD 03/25/2015 [facility] Darin Park MD 03/19/2015 Nurse visit Yvonne Cassidy MD 03/19/2015 Office visit Nidia Darby WAREHOUSE FOREMAN 03/04/2015 Nurse visit Yvonne Cassidy MD 02/25/2015 [...] Office visit 12/31/2014 Office visit Karolyn Millan WAREHOUSE FOREMAN 12/24/2014 Nurse visit Yvonne Cassidy MD 12/17/2014 [...] Cassidy MD 10/11/2014 Office visit Karolyn Millan WAREHOUSE FOREMAN 10/09/2014 Nurse visit Yvonne Cassidy MD 10/04/2014 Nurse visit Yvonne Cassidy MD 09/19/2014 Surgery Karolyn Millna WAREHOUSE FOREMAN 09/13/2014 Office visit Yvonne Cassidy MD 09/06/2014 Nurse visit Yvonne Cassidy MD 08/28/2014 [facility] Chauncey Hogan MD 08/28/2014 [facility] Joe Thomas MD 08/23/2014 Nurse visit Yvonne Cassidy MD 08/22/2014 Surgery Joe Thomas MD 08/16/2014 Nurse visit Yvonne Cassidy MD 08/07/2014 Nurse visit Yvonne Cassidy MD 08/01/2014 Nurse visit Jessie Mock WAREHOUSE FOREMAN 07/25/2014 Nurse visit Nidia Darby WAREHOUSE FOREMAN 07/16/2014 Nurse visit Yvonne Cassidy MD 07/09/2014 [...] Cassidy MD 03/20/2014 Nurse visit Jessie Mock WAREHOUSE FOREMAN 03/13/2014 Nurse visit Donte Hastings WAREHOUSE FOREMAN 03/07/2014 Nurse visit Yvonne Cassidy MD 02/27/2014 Nurse visit Jessie Mock WAREHOUSE FOREMAN 02/20/2014 Nurse visit Donte Hastings WAREHOUSE FOREMAN 02/13/2014 Nurse visit Donte Hastings WAREHOUSE FOREMAN 02/13/2014 Procedures Joe Thomas MD 02/07/2014 Office visit Joe Thomas MD 02/06/2014 Nurse visit Yvonne Cassidy MD 01/17/2014 Nurse visit Nidia Darby WAREHOUSE FOREMAN 01/10/2014 Nurse visit Yvonne Cassidy MD 01/02/2014 Nurse visit Yvonne Cassidy MD 12/26/2013 Nurse visit Yvonne Cassidy MD 12/18/2013 Nurse visit Yvonne Cassidy MD 12/12/2013 Nurse visit Yvonne Cassidy MD 12/05/2013 Nurse visit Yvonne Cassidy MD 11/28/2013 Nurse visit Yvonne Cassidy MD 11/21/2013 Nurse visit Yvonne Cassidy MD 11/14/2013 Nurse visit Yvonne Cassidy MD 11/07/2013 Nurse visit Nidia Darby WAREHOUSE FOREMAN 10/31/2013 Nurse visit Nidia Darby WAREHOUSE FOREMAN 10/25/2013 Nurse visit Nidia Darby WAREHOUSE FOREMAN 10/18/2013 Voided Nidia Darby WAREHOUSE FOREMAN 10/10/2013 Voided Yvonne Cassidy MD 10/03/2013 Nurse visit Yvonne Cassidy MD 09/18/2013 Office visit Yvonne Cassidy MD 09/15/2013 Nurse visit Yvonne Cassidy MD 09/08/2013 Office visit Joe Thomas MD 09/05/2013 Nurse visit Yvonne Cassidy MD 08/29/2013 Nurse visit Yvonne Cassidy MD 08/21/2013 Nurse visit Yvonne aCssidy MD 08/18/2013 Office visit Robinson Rodriguez PA-C [...] Mart MD 04/18/2013 Nurse visit Nidia Darby WAREHOUSE FOREMAN 04/04/2013 Nurse visit Nidia Darby WAREHOUSE FOREMAN 03/28/2013 Nurse visit Nidia Darby WAREHOUSE FOREMAN 03/21/2013 Nurse visit Nidia Darby WAREHOUSE FOREMAN 03/13/2013 Nurse visit Nidia Darby WAREHOUSE FOREMAN 03/09/2013 Nurse visit Nidia Darby WAREHOUSE FOREMAN 03/02/2013 Nurse visit Nidia Sheridan Darby WAREHOUSE FOREMAN 02/21/2013 Nurse visit Nidia Darby WAREHOUSE FOREMAN 02/13/2013 Office visit Nidia Darby WAREHOUSE FOREMAN 02/06/2013 Nurse visit Bria Mart MD 01/31/2013 [...] Mart MD 10/04/2012 Nurse visit Nidia Darby WAREHOUSE FOREMAN 09/27/2012 Nurse visit Bria Mart MD 09/22/2012 Nurse visit Bria Mart MD 09/12/2012 Nurse visit Bria Mart MD 09/05/2012 Nurse visit Francisco J Danielsonhite 08/31/2012 Nurse visit Bria Mart MD 08/23/2012 [...] Mart MD 06/07/2012 Nurse visit Nidia Darby WAREHOUSE FOREMAN 06/07/2012 Voided Francisco J Jeuss DO 06/01/2012 Office visit Bria Mart MD [...] visit Bria Mart MD 11/26/2011 Nurse visit Bira Mart MD 11/17/2011 Nurse visit Bria Mart [...] Mart MD 09/08/2011 Office visit Jessie Mock WAREHOUSE FOREMAN 09/01/2011 Nurse visit Bria Mart MD 08/21/2011 [...]
[2017-05-06 15:48] LABS: WBC,URINE 0-2 /HPF
--- OUTSIDE RECORDS SUMMARY | 2017-05-06 15:49 | XMS REPORT ---
Author Author Yvonne Cassidy [facility] Address [address] [place], [place] [address] Care Team Providers Care Branch Operations Manager Name Role Phone Yvonne Cassidy PCP [...] oral route once daily for 30 days phentermine 37.5 mg oral tablet 12/05/2015 take 1 tablet (37.5 mg) by oral route once daily before breakfast meloxicam 15 mg oral tablet 12/09/2015 TAKE [...] Reviewed 08/21/2011 12:00 AM Depo-Medrol 40 mg ND#[id number] Reviewed 09/08/2011 12:00 AM IMMUNOTHERAPY INJECTIONS Reviewed [...] Reviewed 11/27/2011 12:00 AM Depo-Medrol 40 mg ND#[id number] Reviewed 12/01/2011 12:00 AM IMMUNOTHERAPY INJECTIONS Reviewed [...] 12:00 AM Decadron, Per 1 Mg [facility]# [id number] Reviewed 02/13/2013 12:00 AM Depo-Medrol, Per 80 Mg [facility]#8093-3598-49 Reviewed 06/05/2013 12:00 AM MAMMOGRAM SCREENING Returned [...] BILI 0.50 mg/dLCALCIUM 10.10 mg/dLeGFR >60 mL/min/1.73 [id number] 10.0 secsINR 1.0 PTT 28.20 secs 08/28/2014 [...] CVX Influenza 06/02/2010 sanofi pasteur PMC Fluzone [id number] Intramuscular Left Deltoid 06/02/2010 02/25/2010 999 Influenza 05/09/2015 sanofi pasteur PMC Fluzone [id number] Intramuscular Left Deltoid 05/09/2015 02/22/2015 141 History [...] 4:28PM Allergic rhinitis; due to other allergen Dec 9 2015 3:57PM Allergic rhinitis; due to other [...] Hypertension, Benign Essential Jan 02 2016 10:28AM Payers Insurance Name Company Name Plan Name Plan Number Policy Number Policy Group Number Start Date [employer] [facility] [id number] June [facility] Self Insurance Fund *INVALID State Self Insurance [id number] N/A Comp Start Comp Start [id number] Wednesday, 2015 History of Encounters Visit Date Visit Type Provider 12/25/2015 Nurse visit Yvonne Cassidy MD 12/09/2015 Nurse visit Yvonne Cassidy MD 12/02/2015 Nurse visit Yvonne Cassidy MD 11/29/2015 Nurse visit Donte Hastings SUPPLY CHAIN PLANNER 11/28/2015 Nurse visit Jessie Mock SUPPLY CHAIN PLANNER 11/27/2015 Office visit Jessie Mock SUPPLY CHAIN PLANNER 11/25/2015 Office visit Donte Hastings SUPPLY CHAIN PLANNER 11/18/2015 Nurse visit Donte Hastings SUPPLY CHAIN PLANNER 11/11/2015 Nurse visit Jessie Mock SUPPLY CHAIN PLANNER 11/04/2015 Nurse visit Donte Hastings SUPPLY CHAIN PLANNER 10/29/2015 Office visit Jessie Mock SUPPLY CHAIN PLANNER 10/28/2015 Nurse visit Jessie Mock SUPPLY CHAIN PLANNER 10/21/2015 Nurse visit Glenn Tejeda MD 10/15/2015 Nurse visit Francisco J Jesus DO 10/09/2015 Nurse visit Glenn Tejeda MD 10/02/2015 Office visit April Atkinson SUPPLY CHAIN PLANNER 10/01/2015 Nurse visit Jessie Mock SUPPLY CHAIN PLANNER 09/11/2015 Nurse visit Yvonne Cassidy MD 09/05/2015 [...] Office visit 05/29/2015 Office visit Karolyn Millan SUPPLY CHAIN PLANNER 05/29/2015 Nurse visit Yvonne Cassidy MD 05/14/2015 Nurse visit Francisco J Jesus DO 05/09/2015 Nurse visit Yvonne Cassidy MD 04/30/2015 Nurse visit Yvonne Cassidy MD 04/23/2015 Nurse visit Yvonne Cassidy MD 04/18/2015 Nurse visit Nidia Darby SUPPLY CHAIN PLANNER 04/09/2015 Nurse visit Yvonne Cassidy MD 04/01/2015 Nurse visit Yvonne Cassidy MD 03/27/[address] Cody Horvath MD 03/25/2015 [facility] Alexander Park MD 03/19/2015 Nurse visit Yvonne Cassidy MD 03/19/2015 Office visit Nidia Darby SUPPLY CHAIN PLANNER 03/04/2015 Nurse visit Yvonne Cassidy MD 02/25/2015 [...] Office visit 12/31/2014 Office visit Karolyn Millan SUPPLY CHAIN PLANNER 12/24/2014 Nurse visit Yvonne Cassidy MD 12/17/2014 Nurse visit Yvonne Cassidy MD 12/13/2014 Nurse visit Yvonne Cassidy MD 11/28/2014 Nurse visit Yvonne Cassidy MD 11/19/2014 Nurse visit Yvonne Cassidy MD 11/12/2014 Nurse visit Yvonne Cassidy MD 11/05/2014 Nurse visit Yvonne Cassidy MD 11/05/2014 [facility] Darin Park MD 10/29/2014 Nurse visit Yvonne Cassidy MD 10/24/2014 Nurse visit Yvonne Cassidy MD 10/15/2014 Nurse visit Yvonne Cassidy MD 10/11/2014 Office visit Karolyn Millan SUPPLY CHAIN PLANNER 10/09/2014 Nurse visit Yvonne Cassidy MD 10/04/2014 Nurse visit Yvonne Cassidy MD 09/19/2014 Surgery Karolyn Millan SUPPLY CHAIN PLANNER 09/13/2014 Office visit Yvonne Cassidy MD 09/06/2014 Nurse visit Yvonne Cassidy MD 08/28/2014 [facility] Chauncey Hogan MD 08/28/2014 [facility] oJe Thomas MD 08/23/2014 Nurse visit Yvonne Cassidy MD 08/22/2014 Surgery Joe Thomas MD 08/16/2014 Nurse visit Yvonne Cassidy MD 08/07/2014 Nurse visit Yvonne Cassidy MD 08/01/2014 Nurse visit Jessie Mock SUPPLY CHAIN PLANNER 07/25/2014 Nurse visit Nidia Darby SUPPLY CHAIN PLANNER 07/16/2014 Nurse visit Yvonne Cassidy MD 07/09/2014 [...] Cassidy MD 03/20/2014 Nurse visit Jessie Mock SUPPLY CHAIN PLANNER 03/13/2014 Nurse visit Donte Hastings SUPPLY CHAIN PLANNER 03/07/2014 Nurse visit Yvonne Cassidy MD 02/27/2014 Nurse visit Jessie Mock SUPPLY CHAIN PLANNER 02/20/2014 Nurse visit Donte Hastings SUPPLY CHAIN PLANNER 02/13/2014 Nurse visit Donte Hastings SUPPLY CHAIN PLANNER 02/13/2014 Procedures Joe Thomas MD 02/07/2014 Office visit Joe Thomas MD 02/06/2014 Nurse visit Yvonne Cassidy MD 01/17/2014 Nurse visit Nidia Darby SUPPLY CHAIN PLANNER 01/10/2014 Nurse visit Yvonne Cassidy MD 01/02/2014 Nurse visit Yvonne Cassidy MD 12/26/2013 Nurse visit Yvonne Cassidy MD 12/18/2013 Nurse visit Yvonne Cassidy MD 12/12/2013 Nurse visit Yvonne Cassidy MD 12/05/2013 Nurse visit Yvonne Cassidy MD 11/28/2013 Nurse visit Yvonne Cassidy MD 11/21/2013 Nurse visit Yvonne Cassidy MD 11/14/2013 Nurse visit Yvonne Cassidy MD 11/07/2013 Nurse visit Nidia Darby SUPPLY CHAIN PLANNER 10/31/2013 Nurse visit iNdia Darby SUPPLY CHAIN PLANNER 10/25/2013 Nurse visit Nidia Darby SUPPLY CHAIN PLANNER 10/18/2013 Voided Nidia Darby SUPPLY CHAIN PLANNER 10/10/2013 Voided Yvonne Cassidy MD 10/03/2013 Nurse [...] Yvonne Cassidy MD 07/20/2013 Nurse visit Yvonne Casisdy MD 07/04/2013 Nurse visit Yvonne Cassidy MD [...] Mart MD 04/18/2013 Nurse visit Nidia Darby SUPPLY CHAIN PLANNER 04/04/2013 Nurse visit Nidia Darby SUPPLY CHAIN PLANNER 03/28/2013 Nurse visit Nidia Darby SUPPLY CHAIN PLANNER 03/21/2013 Nurse visit Nidia Darby SUPPLY CHAIN PLANNER 03/13/2013 Nurse visit Nidia Darby SUPPLY CHAIN PLANNER 03/09/2013 Nurse visit Nidia Darby SUPPLY CHAIN PLANNER 03/02/2013 Nurse visit Nidia Darby SUPPLY CHAIN PLANNER 02/21/2013 Nurse visit Nidia Darby SUPPLY CHAIN PLANNER 02/13/2013 Office visit Nidia Darby SUPPLY CHAIN PLANNER 02/06/2013 Nurse visit Bria Mart MD 01/31/2013 [...] Mart MD 10/04/2012 Nurse visit Nidia Darby SUPPLY CHAIN PLANNER 09/27/2012 Nurse visit Bria Mart MD 09/22/2012 [...] Mart MD 06/07/2012 Nurse visit Nidia Darby SUPPLY CHAIN PLANNER 06/07/2012 Voided Francisco J Jesus DO 06/01/2012 [...] Mart MD 09/08/2011 Office visit Jessie Mock SUPPLY CHAIN PLANNER 09/01/2011 Nurse visit Bria Mart MD 08/21/2011 [...]
--- OUTSIDE RECORDS SUMMARY | 2017-05-06 15:52 | XMS REPORT ---
Author Author Yvonne Cassidy [facility] Address [address] [place], [place] [address] Care Team Providers Care Sales Advisory Manager Name Role Phone Yvonne Cassidy PCP [...] Reviewed 08/21/2011 12:00 AM Depo-Medrol 40 mg [facility]#[id number] Reviewed 03/02/2016 12:00 AM IMMUNOTHERAPY INJECTIONS Reviewed [...] Reviewed 11/27/2011 12:00 AM Depo-Medrol 40 mg [facility]#[id number] Reviewed 12/01/2011 12:00 AM IMMUNOTHERAPY INJECTIONS Reviewed [...] 12:00 AM Decadron, Per 1 Mg [facility]# [address]-88 Reviewed 02/13/2013 12:00 AM Depo-Medrol, Per 80 Mg [facility]#[address]642-[address]30-28 Reviewed 06/05/2013 12:00 AM MAMMOGRAM SCREENING Returned [...] BILI 0.50 mg/dLCALCIUM 10.10 mg/dLeGFR >60 mL/min/1.73 [id number] 10.0 secsINR 1.0 PTT 28.20 secs 08/28/2014 [...] CVX Influenza 06/02/2010 sanofi pasteur PMC Fluzone [id number] Intramuscular Left Deltoid 06/02/2010 02/25/2010 999 Influenza 05/09/2015 sanofi pasteur PMC Fluzone [id number] Intramuscular Left Deltoid 05/09/2015 02/22/2015 141 History [...] to other allergen Mar 17 2016 4:49PM Payers Insurance Name Company Name Plan Name Plan Number Policy Number Policy Group Number Start Date [employer] [facility] [id number] June [facility] Self Insurance Fund *INVALID State Self Insurance [id number] N/A Comp [place] [id number] Wednesday, 2015 History of Encounters Visit Date Visit Type Provider 03/17/2016 Nurse visit Yvonne Cassidy MD 03/11/2016 Nurse visit Yvonne Cassidy MD 03/04/2016 Office visit Jessie Mock APRN 03/02/2016 Nurse visit Yvonne Cassidy MD 02/19/2016 Nurse visit Yvonne Cassidy MD 02/12/2016 Office visit Jessie Mock CELL CLEANER 02/03/2016 Nurse visit Yvonne Cassidy MD 01/27/2016 Nurse visit Yvonne Cassidy MD 01/15/2016 Nurse visit Yvonne Cassidy MD 01/08/2016 Office visit Jessie Mock CELL CLEANER 12/25/2015 Nurse visit Yvonne Cassidy MD 12/09/2015 Nurse visit Yvonne Cassidy MD 12/02/2015 Nurse visit Yvonne Cassidy MD 11/29/2015 Nurse visit Donte Hastings CELL CLEANER 11/28/2015 Nurse visit Jessie Mock CELL CLEANER 11/27/2015 Office visit Jessie Mock CELL CLEANER 11/25/2015 Office visit Donte Darling CELL CLEANER 11/18/2015 Nurse visit Donte Gerberran CELL CLEANER 11/11/2015 Nurse visit Jessie Mock CELL CLEANER 11/04/2015 Nurse visit Donte Gerberran CELL CLEANER 10/29/2015 Office visit Jessie Mock CELL CLEANER 10/28/2015 Nurse visit Jessie Mock CELL CLEANER 10/21/2015 Nurse visit Glenn Tejeda MD 10/15/2015 Nurse visit Francisco J Jesus DO 10/09/2015 Nurse visit Glenn Tejeda MD 10/02/2015 Office visit April Atkinson CELL CLEANER 10/01/2015 Nurse visit Jessie Mock CELL CLEANER 09/11/2015 Nurse visit Yvonne Cassidy MD 09/05/2015 [...] Office visit 05/29/2015 Office visit Karolyn Millan CELL CLEANER 05/29/2015 Nurse visit Yvonne Cassidy MD 05/14/2015 Nurse visit Francisco J Jesus DO 05/09/2015 Nurse visit Yvonne Cassidy MD 04/30/2015 Nurse visit Yvonne Cassidy MD 04/23/2015 Nurse visit Yvonne Cassidy MD 04/18/2015 Nurse visit Nidia Darby CELL CLEANER 04/09/2015 Nurse visit Yvonne Cassidy MD 04/01/2015 Nurse visit Yvonne Cassidy MD 03/27/[address] Cody Horvath MD 03/25/2015 [facility] Alexander Park MD 03/19/2015 Nurse visit Yvonne Cassidy MD 03/19/2015 Office visit Nidia Darby CELL CLEANER 03/04/2015 Nurse visit Yvonne Cassidy MD 02/25/2015 [...] Office visit 12/31/2014 Office visit Karolyn Millan CELL CLEANER 12/24/2014 Nurse visit Yvonne Cassidy MD 12/17/2014 Nurse visit Yvonne Cassidy MD 12/13/2014 Nurse visit Yvonne Cassidy MD 11/28/2014 Nurse visit Yvonne Cassidy MD 11/19/2014 Nurse visit Yvonne Cassidy MD 11/12/2014 Nurse visit Yvonne Cassidy MD 11/05/2014 Nurse visit Yvonne Cassidy MD 11/05/2014 [facility] Darin Park MD 10/29/2014 Nurse visit Yvonne Cassidy MD 10/24/2014 Nurse visit Yvonne Cassidy MD 10/15/2014 Nurse visit Yvonne Cassidy MD 10/11/2014 Office visit Karolyn Millan CELL CLEANER 10/09/2014 Nurse visit Yvonne Cassidy MD 10/04/2014 Nurse visit Yvonne Cassidy MD 09/19/2014 Surgery Karolyn Millan CELL CLEANER 09/13/2014 Office visit Yvonne Cassidy MD 09/06/2014 Nurse visit Yvonne Cassidy MD 08/28/2014 [facility] Chauncey Hogan MD 08/28/2014 [facility] Joe Thomas MD 08/23/2014 Nurse visit Yvonne Cassidy MD 08/22/2014 Surgery Joe Thomas MD 08/16/2014 Nurse visit Yvonne Cassidy MD 08/07/2014 Nurse visit Yvonne Cassidy MD 08/01/2014 Nurse visit Jessie Mock CELL CLEANER 07/25/2014 Nurse visit Nidia Darby CELL CLEANER 07/16/2014 Nurse visit Yvonne Cassidy MD 07/09/2014 [...] Cassidy MD 03/20/2014 Nurse visit Jessie Mock CELL CLEANER 03/13/2014 Nurse visit Donte Hastings CELL CLEANER 03/07/2014 Nurse visit Yvonne Cassidy MD 02/27/2014 Nurse visit Jessie Mock CELL CLEANER 02/20/2014 Nurse visit Donte Hastings CELL CLEANER 02/13/2014 Nurse visit Donte Hastings CELL CLEANER 02/13/2014 Procedures Joe Thomas MD 02/07/2014 Office visit Joe Thomas MD 02/06/2014 Nurse visit Yvonne Cassidy MD 01/17/2014 Nurse visit Nidia Darby CELL CLEANER 01/10/2014 Nurse visit Yvonne Cassidy MD 01/02/2014 Nurse visit Yvonne Cassidy MD 12/26/2013 Nurse visit Yvonne Cassidy MD 12/18/2013 Nurse visit Yvonne Cassidy MD 12/12/2013 Nurse visit Yvonne Cassidy MD 12/05/2013 Nurse visit Yvonne Cassidy MD 11/28/2013 Nurse visit Yvonne Cassidy MD 11/21/2013 Nurse visit Yvonne Cassidy MD 11/14/2013 Nurse visit Yvonne Cassidy MD 11/07/2013 Nurse visit Nidia Darby CELL CLEANER 10/31/2013 Nurse visit Nidia Darby CELL CLEANER 10/25/2013 Nurse visit Nidia Darby CELL CLEANER 10/18/2013 Voided Nidia Darby CELL CLEANER 10/10/2013 Voided Yvonne Cassidy MD 10/03/2013 Nurse visit Yvonne Cassidy MD 09/18/2013 Office visit Yvonne Cassidy MD 09/15/2013 Nurse visit Yvonne Cassidy MD 09/08/2013 Office visit Joe Thomas MD 09/05/2013 Nurse visit Yvonne Casisdy MD 08/29/2013 Nurse visit Yvonne Cassidy MD [...] Mart MD 04/18/2013 Nurse visit Nidia Darby CELL CLEANER 04/04/2013 Nurse visit Nidia Darby CELL CLEANER 03/28/2013 Nurse visit Nidia Darby CELL CLEANER 03/21/2013 Nurse visit Nidia Darby CELL CLEANER 03/13/2013 Nurse visit Nidia Darby CELL CLEANER 03/09/2013 Nurse visit Nidia Darby CELL CLEANER 03/02/2013 Nurse visit Nidia Darby CELL CLEANER 02/21/2013 Nurse visit Nidia Darby CELL CLEANER 02/13/2013 Office visit Nidia Darby CELL CLEANER 02/06/2013 Nurse visit Bria Mart MD 01/31/2013 [...] Mart MD 10/04/2012 Nurse visit Nidia Darby CELL CLEANER 09/27/2012 Nurse visit Bria Mart MD 09/22/2012 [...] Mart MD 06/07/2012 Nurse visit Nidia Darby CELL CLEANER 06/07/2012 Voided Francisco J Jesus DO 06/01/2012 [...]
--- OUTSIDE RECORDS SUMMARY | 2017-05-06 15:55 | XMS REPORT ---
Author Author Yvonne Cassidy [facility] Address [address] [place], [place] [id number] Care Team Providers Care Rack Pusher Name Role Phone Yvonne Cassidy PCP Allergies [...] 08/21/2011 12:00 AM Depo-Medrol [address] [facility]#[id number] Reviewed 03/02/2016 12:00 AM IMMUNOTHERAPY INJECTIONS Reviewed [...] 11/27/2011 12:00 AM Depo-Medrol [address] [facility]#[id number] Reviewed 12/01/2011 12:00 AM IMMUNOTHERAPY INJECTIONS Reviewed [...] 12:00 AM Decadron, Per [address] [facility]# [address]-42 Reviewed 02/13/2013 12:00 AM Depo-Medrol, Per [address] [facility]#[id number] Reviewed 06/05/2013 12:00 AM MAMMOGRAM SCREENING Returned [...] BILI 0.50 mg/dLCALCIUM 10.10 mg/dLeGFR >60 mL/min/1.73 [id number] 10.0 secsINR 1.0 PTT 28.20 secs 08/28/2014 [...] CVX Influenza 06/02/2010 sanofi pasteur PMC Fluzone [id number] Intramuscular Left Deltoid 06/02/2010 02/25/2010 999 Influenza 05/09/2015 [facility] Fluzone [id number] Intramuscular Left Deltoid 05/09/2015 02/22/2015 141 History [...] to other allergen May 11 2016 3:48PM Payers Insurance Name Company Name Plan Name Plan Number Policy Number Policy Group Number [id number] Self [facility] Fund *INVALID State Self Insurance [id number] N/A Comp [employer] [id number] Wednesday, 2015 History of Encounters Visit Date Visit Type Provider 05/11/2016 Nurse visit Yvonne Cassidy MD 05/05/2016 Nurse visit Yvonne Cassidy MD 04/29/2016 Nurse visit Yvonne Cassidy MD 04/23/2016 Office visit Jessie Mock DUMP GRADER 04/13/2016 Nurse visit Yvonne Cassidy MD 04/07/2016 Nurse visit Yvonne Cassidy MD 04/01/2016 Office visit Jessie Mock DUMP GRADER 03/26/2016 Nurse visit Yvonne Cassidy MD 03/17/2016 Nurse visit Yvonne Cassidy MD 03/11/2016 Nurse visit Yvonne Cassidy MD 03/04/2016 Office visit Jessie Mock DUMP GRADER 03/02/2016 Nurse visit Yvonne Cassidy MD 02/19/2016 Nurse visit Yvonne Cassidy MD 02/12/2016 Office visit Jessie Mock APRN 02/03/2016 Nurse visit Yvonne Cassidy MD 01/27/2016 Nurse visit Yvonne Cassidy MD 01/15/2016 Nurse visit Yvonne Cassidy MD 01/08/2016 Office visit Jessie Mock DUMP GRADER 12/25/2015 Nurse visit Yvonne Cassdiy MD 12/09/2015 Nurse visit Yvonne Cassidy MD 12/02/2015 Nurse visit Yvonne Cassidy MD 11/29/2015 Nurse visit Donte Hastings DUMP GRADER 11/28/2015 Nurse visit Jessie Mock DUMP GRADER 11/27/2015 Office visit Jessie Mock DUMP GRADER 11/25/2015 Office visit Donte Darling DUMP GRADER 11/18/2015 Nurse visit Donte Gerberran DUMP GRADER 11/11/2015 Nurse visit Jessie Mock DUMP GRADER 11/04/2015 Nurse visit Donte Gerberran DUMP GRADER 10/29/2015 Office visit Jessie Mock DUMP GRADER 10/28/2015 Nurse visit Jessie Mock DUMP GRADER 10/21/2015 Nurse visit Glenn Tejeda MD 10/15/2015 Nurse visit Francisco J Jesus DO 10/09/2015 Nurse visit Glenn Tejeda MD 10/02/2015 Office visit April Atkinson DUMP GRADER 10/01/2015 Nurse visit Jessie Mock DUMP GRADER 09/11/2015 Nurse visit Yvonne Cassidy MD 09/05/2015 [...] Office visit 05/29/2015 Office visit Karolyn Millan DUMP GRADER 05/29/2015 Nurse visit Yvonne Cassidy MD 05/14/2015 Nurse visit Francisco J Jesus DO 05/09/2015 Nurse visit Yvonne Cassidy MD 04/30/2015 Nurse visit Yvonne Cassidy MD 04/23/2015 Nurse visit Yvonne Cassidy MD 04/18/2015 Nurse visit Nidia Darby DUMP GRADER 04/09/2015 Nurse visit Yvonne Cassidy MD 04/01/2015 Nurse visit Yvonne Cassidy MD 03/27/[address] Cody Horvath MD 03/25/2015 [facility] Alexander Park MD 03/19/2015 Nurse visit Yvonne Cassidy MD 03/19/2015 Office visit Nidia Darby DUMP GRADER 03/04/2015 Nurse visit Yvonne Cassidy MD 02/25/2015 [...] Office visit 12/31/2014 Office visit Karolyn Millan DUMP GRADER 12/24/2014 Nurse visit Yvonne Cassidy MD 12/17/2014 Nurse visit Yvonne Cassidy MD 12/13/2014 Nurse visit Yvonne Cassidy MD 11/28/2014 Nurse visit Yvonne Cassidy MD 11/19/2014 Nurse visit Yvonne Cassidy MD 11/12/2014 Nurse visit Yvonne Cassidy MD 11/05/2014 Nurse visit Yvonne Cassidy MD 11/05/2014 [facility] Darin Park MD 10/29/2014 Nurse visit Yvonne Cassidy MD 10/24/2014 Nurse visit Yvonne Cassidy MD 10/15/2014 Nurse visit Yvonne Cassidy MD 10/11/2014 Office visit Karolyn Millan DUMP GRADER 10/09/2014 Nurse visit Yvonne Cassdiy MD 10/04/2014 Nurse visit Yvonne Cassidy MD 09/19/2014 Surgery Karolyn Millan DUMP GRADER 09/13/2014 Office visit Yvonne Cassidy MD 09/06/2014 Nurse visit Yvonne Cassidy MD 08/28/2014 [facility] Chauncey Hogan MD 08/28/2014 [facility] Joe Thomas MD 08/23/2014 Nurse visit Yvonne Cassidy MD 08/22/2014 Surgery Joe Thomas MD 08/16/2014 Nurse visit Yvonne Cassidy MD 08/07/2014 Nurse visit Yvonne Cassidy MD 08/01/2014 Nurse visit Jessie Mock DUMP GRADER 07/25/2014 Nurse visit Niida Darby DUMP GRADER 07/16/2014 Nurse visit Yvonne Cassidy MD 07/09/2014 [...] Cassidy MD 03/20/2014 Nurse visit Jessie Mock DUMP GRADER 03/13/2014 Nurse visit Donte Hastings DUMP GRADER 03/07/2014 Nurse visit Yvonne Cassidy MD 02/27/2014 Nurse visit Jessie Mock DUMP GRADER 02/20/2014 Nurse visit Donte Hastings DUMP GRADER 02/13/2014 Nurse visit Donte Hastings DUMP GRADER 02/13/2014 Procedures Joe Thomas MD 02/07/2014 Office visit Joe Thomas MD 02/06/2014 Nurse visit Yvonne Cassidy MD 01/17/2014 Nurse visit Nidia Darby DUMP GRADER 01/10/2014 Nurse visit Yvonne Cassidy MD 01/02/2014 Nurse visit Yvonne Cassidy MD 12/26/2013 Nurse visit Yvonne Cassidy MD 12/18/2013 Nurse visit Yvonne Cassidy MD 12/12/2013 Nurse visit Yvonne Cassidy MD 12/05/2013 Nurse visit Yvonne Cassidy MD 11/28/2013 Nurse visit Yvonne Cassidy MD 11/21/2013 Nurse visit Yvonne Cassidy MD 11/14/2013 Nurse visit Yvonne Cassidy MD 11/07/2013 Nurse visit Nidia Darby DUMP GRADER 10/31/2013 Nurse visit Nidia Darby DUMP GRADER 10/25/2013 Nurse visit Nidia Darby DUMP GRADER 10/18/2013 Voided Nidia Darby DUMP GRADER 10/10/2013 Voided Yvonne Cassidy MD 10/03/2013 Nurse [...] Mart MD 04/18/2013 Nurse visit Nidia Darby DUMP GRADER 04/04/2013 Nurse visit Nidia Darby DUMP GRADER 03/28/2013 Nurse visit Nidia Darby DUMP GRADER 03/21/2013 Nurse visit Nidia Darby DUMP GRADER 03/13/2013 Nurse visit Nidia Darby DUMP GRADER 03/09/2013 Nurse visit Nidia Darby DUMP GRADER 03/02/2013 Nurse visit Nidia Darby DUMP GRADER 02/21/2013 Nurse visit Nidia Darby DUMP GRADER 02/13/2013 Office visit Nidia Darby DUMP GRADER 02/06/2013 Nurse visit Bria Mart MD 01/31/2013 [...] Mart MD 10/04/2012 Nurse visit Nidia Darby DUMP GRADER 09/27/2012 Nurse visit Bria Mart MD 09/22/2012 [...] Mart MD 06/07/2012 Nurse visit Nidia Darby DUMP GRADER 06/07/2012 Voided Francisco J Jesus DO 06/01/2012 [...] Bria Mart MD 09/08/2011 Office visit Jessie Mcok APRN 09/01/2011 Nurse visit Bria Mart MD [...]
--- OUTSIDE RECORDS SUMMARY | 2017-05-06 15:57 | XMS REPORT ---
Author Author Karolyn Millan [facility] Address [address] [place], [place] [id number] Care Team Providers Care Equine Internship Name Role Phone Karolyn Millan PCP Unavailable Allergies and Adverse Reactions Name Reaction Notes Ceftin rash Erythromycin rash PENICILLINS rash Plan of Treatment Planned Activity Comments Planned Date Planned Time Plan/Goal IMMUNOTHERAPY INJECTIONS 04/18/2015 12:00 AM IMMUNOTHERAPY INJECTIONS 03/27/2015 12:00 AM IMMUNOTHERAPY INJECTIONS 01/05/2012 12:00 AM [...] Reviewed 05/29/2015 12:00 AM IMMUNOTHERAPY INJECTIONS Reviewed 04/15/2011 12:00 [...] Reviewed 08/21/2011 12:00 AM Depo-Medrol 40 mg [facility]#[id number] Reviewed 09/08/2011 12:00 AM IMMUNOTHERAPY INJECTIONS Reviewed [...] Reviewed 11/27/2011 12:00 AM Depo-Medrol 40 mg [facility]#[id number] Reviewed 12/01/2011 12:00 AM IMMUNOTHERAPY INJECTIONS Reviewed [...] Decadron, Per 1 Mg [facility]# [address]-21 Reviewed 02/13/2013 12:00 AM Depo-Medrol, Per 80 Mg [facility]#6299-0796-18 Reviewed 06/05/2013 12:00 AM MAMMOGRAM SCREENING Returned [...] BILI 0.50 mg/dLCALCIUM 10.10 mg/dLeGFR >60 mL/min/1.73 [id number] 10.0 secsINR 1.0 PTT 28.20 secs 08/28/2014 [...] CVX Influenza 06/02/2010 sanofi pasteur PMC Fluzone [id number] Intramuscular Left Deltoid 06/02/2010 02/25/2010 999 Influenza 05/09/2015 sanofi pasteur PMC Fluzone [id number] Intramuscular Left Deltoid 05/09/2015 02/22/2015 141 History [...] to other allergen May 29 2015 3:06PM Payers Insurance Name Company Name Plan Name Plan Number Policy Number Policy Group Number [id number] [place] *[place] State Self Insurance [id number] N /A History of Encounters Visit Date Visit Type Provider 05/29/2015 Office visit Karolyn Millan MECHANICAL ASSEMBLY TECHNICIAN 05/29/2015 Nurse visit Yvonne Cassidy MD 05/14/2015 Nurse visit Francisco J Jesus DO 05/09/2015 Nurse visit Yvonne Cassidy MD 04/30/2015 Nurse visit Yvonne Cassidy MD 04/23/2015 Nurse visit Yvonne Cassidy MD 04/18/2015 Nurse visit Nidia Darby MECHANICAL ASSEMBLY TECHNICIAN 04/09/2015 Nurse visit Yvonne Cassidy MD 04/01/2015 Nurse visit Yvonne Cassidy MD 03/27/[address] Cody Horvath MD 03/19/2015 Nurse visit Yvonne Cassidy MD 03/19/2015 Office visit Nidia Darby MECHANICAL ASSEMBLY TECHNICIAN 03/04/2015 Nurse visit Yvonne Csasidy MD 02/25/2015 Nurse visit Yvonne Cassidy MD 02/18/2015 Nurse visit Yvonne Cassidy MD 02/11/2015 Nurse visit Yvonne Cassidy MD 02/04/2015 Nurse visit Yvonne Cassidy MD 01/28/2015 Nurse visit Yvonne Cassidy MD 01/21/2015 Nurse visit Yvonne Cassidy MD 01/15/2015 Nurse visit Yvonne Cassidy MD 01/07/2015 Nurse visit Yvonne Cassidy MD 12/31/2014 Nurse visit Yvonne Cassidy MD 12/31/2014 Office visit Karolyn Millan MECHANICAL ASSEMBLY TECHNICIAN 12/24/2014 Nurse visit Yvonne Cassidy MD 12/17/2014 Nurse visit Yvonne Cassidy MD 12/13/2014 Nurse visit Yvonne Cassidy MD 11/28/2014 Nurse visit Yvonne Cassidy MD 11/19/2014 Nurse visit Yvonne Cassidy MD 11/12/2014 Nurse visit Yvonne Cassidy MD 11/05/2014 Nurse visit Yvonne Cassidy MD 11/05/2014 [facility] Alexander Park MD 10/29/2014 Nurse visit Yvonne Cassidy MD 10/24/2014 Nurse visit Yvonne Cassidy MD 10/15/2014 Nurse visit Yvonne Cassidy MD 10/11/2014 Office visit Karolyn Millan MECHANICAL ASSEMBLY TECHNICIAN 10/09/2014 Nurse visit Yvonne Cassidy MD 10/04/2014 Nurse visit Yvonne Cassidy MD 09/19/2014 Surgery Karolyn Millan MECHANICAL ASSEMBLY TECHNICIAN 09/13/2014 Office visit Yvonne Cassidy MD 09/06/2014 Nurse visit Yvonne Cassidy MD 08/28/2014 Hospital Chauncey Hogan MD 08/28/2014 Hospital Joe Thomas MD 08/23/2014 Nurse visit Yvonne Cassidy MD 08/22/2014 Surgery Joe Thomas MD 08/16/2014 Nurse visit Yvonne Cassidy MD 08/07/2014 Nurse visit Yvonne Cassidy MD 08/01/2014 Nurse visit Jessie Mock MECHANICAL ASSEMBLY TECHNICIAN 07/25/2014 Nurse visit Nidia Darby MECHANICAL ASSEMBLY TECHNICIAN 07/16/2014 Nurse visit Yvonne Cassidy MD 07/09/2014 [...] Cassidy MD 03/20/2014 Nurse visit Jessie Mock MECHANICAL ASSEMBLY TECHNICIAN 03/13/2014 Nurse visit Donte Hastings MECHANICAL ASSEMBLY TECHNICIAN 03/07/2014 Nurse visit Yvonne Cassidy MD 02/27/2014 Nurse visit Jessie Mock MECHANICAL ASSEMBLY TECHNICIAN 02/20/2014 Nurse visit Donte Hastings MECHANICAL ASSEMBLY TECHNICIAN 02/13/2014 Nurse visit Donte Hastings MECHANICAL ASSEMBLY TECHNICIAN 02/13/2014 Procedures Joe Thomas MD 02/07/2014 Office visit Joe Thomas MD 02/06/2014 Nurse visit Yvonne Cassidy MD 01/17/2014 Nurse visit Nidia Darby MECHANICAL ASSEMBLY TECHNICIAN 01/10/2014 Nurse visit Yvonne Cassidy MD 01/02/2014 Nurse visit Yvonne Cassidy MD 12/26/2013 Nurse visit Yvonne Cassidy MD 12/18/2013 Nurse visit Yvonne Cassidy MD 12/12/2013 Nurse visit Yvonne Cassidy MD 12/05/2013 Nurse visit Yvonne Cassidy MD 11/28/2013 Nurse visit Yvonne Cassidy MD 11/21/2013 Nurse visit Yvonne Cassidy MD 11/14/2013 Nurse visit Yvonne Cassidy MD 11/07/2013 Nurse visit Nidia Darby MECHANICAL ASSEMBLY TECHNICIAN 10/31/2013 Nurse visit Nidia Darby MECHANICAL ASSEMBLY TECHNICIAN 10/25/2013 Nurse visit Nidia Darby MECHANICAL ASSEMBLY TECHNICIAN 10/18/2013 Voided Nidia Darby MECHANICAL ASSEMBLY TECHNICIAN 10/10/2013 Voided Yvonne Cassidy MD 10/03/2013 Nurse [...] Mart MD 04/18/2013 Nurse visit Nidia Darby MECHANICAL ASSEMBLY TECHNICIAN 04/04/2013 Nurse visit Nidia Darby MECHANICAL ASSEMBLY TECHNICIAN 03/28/2013 Nurse visit Nidia Darby MECHANICAL ASSEMBLY TECHNICIAN 03/21/2013 Nurse visit Nidia Darby MECHANICAL ASSEMBLY TECHNICIAN 03/13/2013 Nurse visit Nidia Darby MECHANICAL ASSEMBLY TECHNICIAN 03/09/2013 Nurse visit Nidia Darby MECHANICAL ASSEMBLY TECHNICIAN 03/02/2013 Nurse visit Nidia Darby MECHANICAL ASSEMBLY TECHNICIAN 02/21/2013 Nurse visit Nidia Darby MECHANICAL ASSEMBLY TECHNICIAN 02/13/2013 Office visit Nidia GonzalesZafar Darby MECHANICAL ASSEMBLY TECHNICIAN 02/06/2013 Nurse visit Bria Mart MD 01/31/2013 Nurse visit rBia Mart MD 01/24/2013 Nurse visit Bria Mart MD 01/17/2013 Nurse visit Bria Mart MD 01/10/2013 Nurse visit Bria Mart MD 01/02/2013 Nurse visit rBia Mart MD 12/20/2012 Nurse visit Bria Mart [...] Bria Mart MD 10/04/2012 Nurse visit Nidia GonzalesZafar Darby MECHANICAL ASSEMBLY TECHNICIAN 09/27/2012 Nurse visit Bria Mart MD 09/22/2012 [...] MD 06/07/2012 Nurse visit Nidia Sheridan Darby APRN 06/07/2012 Voided Francisco J Jesus 06/01/2012 Office [...] Mart MD 09/08/2011 Office visit Jessie Mock MECHANICAL ASSEMBLY TECHNICIAN 09/01/2011 Nurse visit Bria Mart MD 08/21/2011 [...] Bria Mart MD 05/14/2011 Nurse visit Bria Mrat MD 05/06/2011 Nurse visit Bria Mart MD [...]
--- OUTSIDE RECORDS SUMMARY | 2017-05-06 16:00 | XMS REPORT ---
Author Author Yvonne Cassidy Organization [facility] Address [address] [place], [place] [address] Care Team Providers Care Foreign Broadcast Specialist Name Role Phone Yvonne Cassidy PCP Yvonne [...] 1 CAPSULE BY MOUTH EVERY DAY Zithromax Z-Joans 250 mg oral tablet 07/21/2011 07/26/2011 Take [...] Reviewed 08/21/2011 12:00 AM Depo-Medrol 40 mg [facility]#[id number] Reviewed 03/02/2016 12:00 AM IMMUNOTHERAPY INJECTIONS Reviewed [...] Reviewed 04/23/2016 12:00 AM IMMUNOTHERAPY INJECTIONS Reviewed 10/20/2011 12:00 AM IMMUNOTHERAPY INJECTIONS Reviewed 10/29/2011 12:00 AM IMMUNOTHERAPY INJECTIONS Reviewed 11/03/2011 12:00 AM IMMUNOTHERAPY INJECTIONS Reviewed 11/10/2011 12:00 AM IMMUNOTHERAPY INJECTIONS Reviewed 11/17/2011 12:00 AM IMMUNOTHERAPY INJECTIONS Reviewed 11/27/2011 12:00 AM THER/PROPH/DIAG INJ SC/IM Reviewed 11/27/2011 12:00 AM Depo-Medrol 40 mg [facility]#[id number] Reviewed 12/01/2011 12:00 AM IMMUNOTHERAPY INJECTIONS Reviewed [...] 02/13/2013 12:00 AM Decadron, Per 1 Mg [facility]# [address]-37 Reviewed 02/13/2013 12:00 AM Depo-Medrol, Per 80 Mg [facility]#6892-1548-59 Reviewed 06/05/2013 12:00 AM MAMMOGRAM SCREENING Returned [...] CVX Influenza 06/02/2010 sanofi pasteur PMC Fluzone [id number] Intramuscular Left Deltoid 06/02/2010 02/25/2010 999 Influenza 05/09/2015 sanofi pasteur PMC Fluzone [id number] Intramuscular Left Deltoid 05/09/2015 02/22/2015 141 History [...] Policy Number Policy Group Number Start Date [facility] [id number] June [facility] Self Insurance Fund *INVALID State Self Insurance [id number] N/A Comp [place] [id number] Wednesday, 2015 History of Encounters Visit Date Visit Type Provider 05/11/2016 Nurse visit Yvonne Cassidy MD 05/05/2016 Nurse visit Yvonne Cassidy MD 04/29/2016 Nurse visit Yvonne Cassidy MD 04/23/2016 Office visit Jessie Mock POWER SWITCHBOARD OPERATOR 04/13/2016 Nurse visit Yvonne Cassidy MD 04/07/2016 Nurse visit Yvonne Cassidy MD 04/01/2016 Office visit Jessie Mock POWER SWITCHBOARD OPERATOR 03/26/2016 Nurse visit Yvonne Cassidy MD 03/17/2016 Nurse visit Yvonne Cassidy MD 03/11/2016 Nurse visit Yvonne Cassidy MD 03/04/2016 Office visit Jessie Mock POWER SWITCHBOARD OPERATOR 03/02/2016 Nurse visit Yvonne Cassidy MD 02/19/2016 Nurse visit Yvonne Cassidy MD 02/12/2016 Office visit Jessie Mock POWER SWITCHBOARD OPERATOR 02/03/2016 Nurse visit Yvonne Cassidy MD 01/27/2016 Nurse visit Yvonne Cassidy MD 01/15/2016 Nurse visit Yvonne Cassidy MD 01/08/2016 Office visit Jessie Mock POWER SWITCHBOARD OPERATOR 12/25/2015 Nurse visit Yvonne Cassidy MD 12/09/2015 Nurse visit Yvonne Cassidy MD 12/02/2015 Nurse visit Yvonne Cassidy MD 11/29/2015 Nurse visit Donte Hastings POWER SWITCHBOARD OPERATOR 11/28/2015 Nurse visit Jessie Nish POWER SWITCHBOARD OPERATOR 11/27/2015 Office visit Jessie Nish POWER SWITCHBOARD OPERATOR 11/25/2015 Office visit Donte Hastings POWER SWITCHBOARD OPERATOR 11/18/2015 Nurse visit Donte Hastings POWER SWITCHBOARD OPERATOR 11/11/2015 Nurse visit Jessie Nish POWER SWITCHBOARD OPERATOR 11/04/2015 Nurse visit Donte Hastings POWER SWITCHBOARD OPERATOR 10/29/2015 Office visit Jessie Nish POWER SWITCHBOARD OPERATOR 10/28/2015 Nurse visit Jessie Mock POWER SWITCHBOARD OPERATOR 10/21/2015 Nurse visit Glenn Tejeda MD 10/15/2015 Nurse visit Francisco J Jesus DO 10/09/2015 Nurse visit Glenn Tejeda MD 10/02/2015 Office visit April Atkinson POWER SWITCHBOARD OPERATOR 10/01/2015 Nurse visit Jessie Mock POWER SWITCHBOARD OPERATOR 09/11/2015 Nurse visit Yvonne Cassidy MD [...] Office visit 05/29/2015 Office visit Karolyn Millan POWER SWITCHBOARD OPERATOR 05/29/2015 Nurse visit Yvonne Cassidy MD 05/14/2015 Nurse visit Francisco J Danielsonnola ISSA 05/09/2015 Nurse visit Yvonne Cassidy MD 04/30/2015 Nurse visit Yvonne Cassidy MD 04/23/2015 Nurse visit Yvonne Cassidy MD 04/18/2015 Nurse visit Nidia Darby POWER SWITCHBOARD OPERATOR 04/09/2015 Nurse visit Yvonne Cassidy MD 04/01/2015 Nurse visit Yvonne Cassidy MD 03/27/[address] Cody Horvath MD 03/25/2015 [facility] Alexander Park MD 03/19/2015 Nurse visit Yvonne Cassidy MD 03/19/2015 Office visit Nidia Darby POWER SWITCHBOARD OPERATOR 03/04/2015 Nurse visit Yvonne Cassidy MD [...] Office visit 12/31/2014 Office visit Karolyn Millan POWER SWITCHBOARD OPERATOR 12/24/2014 Nurse visit Yvonne Cassidy MD 12/17/2014 Nurse visit Yvonne Cassidy MD 12/13/2014 Nurse visit Yvonne Cassidy MD 11/28/2014 Nurse visit Yvonne Cassidy MD 11/19/2014 Nurse visit Yvonne Cassidy MD 11/12/2014 Nurse visit Yvonne Cassidy MD 11/05/2014 Nurse visit Yvonne Cassidy MD 11/05/2014 [facility] Alexander Park MD 10/29/2014 Nurse visit Yvonne Cassidy MD 10/24/2014 Nurse visit Yvonne Cassidy MD 10/15/2014 Nurse visit Yvonne Cassidy MD 10/11/2014 Office visit Karolyn Millan POWER SWITCHBOARD OPERATOR 10/09/2014 Nurse visit Yvonne Cassidy MD 10/04/2014 Nurse visit Yvonne Cassidy MD 09/19/2014 Surgery Karolyn Millan POWER SWITCHBOARD OPERATOR 09/13/2014 Office visit Yvonne Cassidy MD 09/06/2014 Nurse visit Yvonne Cassidy MD 08/28/2014 Hospital Chauncey Hogan MD 08/28/2014 Hospital Joe Thomas MD 08/23/2014 Nurse visit vYonne Cassidy MD 08/22/2014 Surgery Joe Thomas MD 08/16/2014 Nurse visit Yvonne Cassidy MD 08/07/2014 Nurse visit Yvonne Cassidy MD 08/01/2014 Nurse visit Jessie Mock POWER SWITCHBOARD OPERATOR 07/25/2014 Nurse visit Nidia Darby POWER SWITCHBOARD OPERATOR 07/16/2014 Nurse visit Yvonne Cassidy MD [...] Cassidy MD 03/20/2014 Nurse visit Jessie Mock POWER SWITCHBOARD OPERATOR 03/13/2014 Nurse visit Donte Hastings POWER SWITCHBOARD OPERATOR 03/07/2014 Nurse visit Yvonne Cassidy MD 02/27/2014 Nurse visit Jessie Mock POWER SWITCHBOARD OPERATOR 02/20/2014 Nurse visit Donte Hastings POWER SWITCHBOARD OPERATOR 02/13/2014 Nurse visit Donte Hastings POWER SWITCHBOARD OPERATOR 02/13/2014 Procedures Joe Thomas MD 02/07/2014 Office visit Joe Thomas MD 02/06/2014 Nurse visit Yvonne Cassidy MD 01/17/2014 Nurse visit Nidia Darby POWER SWITCHBOARD OPERATOR 01/10/2014 Nurse visit Yvonne Cassidy MD 01/02/2014 Nurse visit Yvonne Cassidy MD 12/26/2013 Nurse visit Yvonne Cassidy MD 12/18/2013 Nurse visit Yvonne Cassidy MD 12/12/2013 Nurse visit Yvonne Cassidy MD 12/05/2013 Nurse visit Yvonne Cassidy MD 11/28/2013 Nurse visit Yvonne Cassidy MD 11/21/2013 Nurse visit Yvonne Cassidy MD 11/14/2013 Nurse visit Yvonne Cassidy MD 11/07/2013 Nurse visit Nidia Darby POWER SWITCHBOARD OPERATOR 10/31/2013 Nurse visit Nidia Darby POWER SWITCHBOARD OPERATOR 10/25/2013 Nurse visit Nidia Darby POWER SWITCHBOARD OPERATOR 10/18/2013 Voided Nidia Darby POWER SWITCHBOARD OPERATOR 10/10/2013 Voided Yvonne Cassidy MD 10/03/2013 [...] MD 04/18/2013 Nurse visit Nidia Sheridan Darby POWER SWITCHBOARD OPERATOR 04/04/2013 Nurse visit Nidia Sheridan Darby POWER SWITCHBOARD OPERATOR 03/28/2013 Nurse visit Nidia Sheridan Darby POWER SWITCHBOARD OPERATOR 03/21/2013 Nurse visit Nidia Sheridan Darby POWER SWITCHBOARD OPERATOR 03/13/2013 Nurse visit Nidia Sherdian Darby POWER SWITCHBOARD OPERATOR 03/09/2013 Nurse visit Nidia Sheridan Darby POWER SWITCHBOARD OPERATOR 03/02/2013 Nurse visit Nidia Sheridan Darby POWER SWITCHBOARD OPERATOR 02/21/2013 Nurse visit Nidia Darby POWER SWITCHBOARD OPERATOR 02/13/2013 Office visit Nidia Darby POWER SWITCHBOARD OPERATOR 02/06/2013 Nurse visit Bria Mart MD [...] Mart MD 10/04/2012 Nurse visit Nidia Darby POWER SWITCHBOARD OPERATOR 09/27/2012 Nurse visit Bria Mart MD [...] Mart MD 06/07/2012 Nurse visit Nidia GonzalesZafar Wilner POWER SWITCHBOARD OPERATOR 06/07/2012 Voided Francisco J Jesus 06/01/2012 Office [...] Mart MD 09/08/2011 Office visit Jessie Mock POWER SWITCHBOARD OPERATOR 09/01/2011 Nurse visit Bria Mart MD [...] visit Bria Mart MD 05/06/2011 Nurse visit Bira Mart MD 04/29/2011 Nurse visit Bria Mart [...]
--- OUTSIDE RECORDS SUMMARY | 2017-05-06 16:03 | XMS REPORT ---
Author Author Yvonne Cassidy Organization [facility] Address [address] [place], [place] [id number] Care Team Providers Care Stroke Program Coordinator Name Role Phone Yvonne Cassidy PCP Yvonne [...] 08/21/2011 12:00 AM Depo-Medrol 40 mg [facility]#[id number] Reviewed 03/02/2016 12:00 AM IMMUNOTHERAPY INJECTIONS Reviewed [...] 11/27/2011 12:00 AM Depo-Medrol 40 mg [facility]#[id number] Reviewed 12/01/2011 12:00 AM IMMUNOTHERAPY INJECTIONS Reviewed 08/25/2016 12:00 AM IMMUNOTHERAPY INJECTIONS Reviewed 12/08/2011 12:00 [...] Per 1 Mg [facility]# [address]-02 Reviewed 02/13/2013 12:00 AM Depo-Medrol, Per 80 Mg [facility]#[id number] Reviewed 06/05/2013 12:00 AM MAMMOGRAM SCREENING Reviewed [...] CVX Influenza 06/02/2010 sanofi pasteur PMC Fluzone [id number] Intramuscular Left Deltoid 06/02/2010 02/25/2010 999 Influenza 05/09/2015 sanofi pasteur PMC Fluzone [id number] Intramuscular Left Deltoid 05/09/2015 02/22/2015 141 Pneumococcal 06/29/2016 [facility] Prevnar 13 [id number] Intramuscular Right Deltoid 06/29/2016 09/14/2012 133 History [...] to other allergen Aug 25 2016 3:51PM Payers Insurance Name Company Name Plan Name Plan Number Policy Number Policy Group Number Start Date [facility] [id number] June [facility] Self Insurance Fund *INVALID State Self Insurance [id number] N/A Comp [place] [employer] [place] [id number] Wednesday, 2015 History of Encounters Visit Date Visit Type Provider 08/25/2016 Nurse visit Yvonne Cassidy MD 08/19/2016 Nurse visit Yvonne Cassidy MD 08/13/2016 Nurse visit Yvonne Cassidy MD 08/04/2016 Nurse visit Yvonne Cassidy MD 07/29/2016 Nurse visit Yvonne Cassidy MD 07/14/2016 Nurse visit Donte Hastings SERVICE CORRESPONDENT 07/06/2016 Nurse visit Yvonne Cassidy MD 06/29/2016 Nurse visit Yvonne Cassidy MD 06/24/2016 Nurse visit Yvonne Cassidy MD 06/16/2016 Office visit Yvonne Cassidy MD 06/14/2016 [facility] Alexander Park MD 06/09/2016 Nurse visit Yvonne Cassidy MD 06/02/2016 Office visit 06/02/2016 Office visit Karolyn Millan SERVICE CORRESPONDENT 06/01/2016 Nurse visit Yvonne Cassidy MD 05/27/2016 Nurse visit Yvonne Cassidy MD 05/11/2016 Nurse visit Yvonne Cassidy MD 05/05/2016 Nurse visit Yvonne Cassidy MD 04/29/2016 Nurse visit Yvonne Cassidy MD 04/23/2016 Office visit Jessie Mock SERVICE CORRESPONDENT 04/13/2016 Nurse visit Yvonne Cassidy MD 04/07/2016 Nurse visit Yvonne Cassidy MD 04/01/2016 Office visit Jessie Mock SERVICE CORRESPONDENT 03/26/2016 Nurse visit Yvonne Cassidy MD 03/17/2016 Nurse visit Yvonne Cassidy MD 03/11/2016 Nurse visit Yvonne Cassidy MD 03/04/2016 Office visit Jessie Mock SERVICE CORRESPONDENT 03/02/2016 Nurse visit Yvonne Cassidy MD 02/19/2016 Nurse visit Yvonne Cassidy MD 02/12/2016 Office visit Jessie Mock SERVICE CORRESPONDENT 02/03/2016 Nurse visit Yvonne Cassidy MD 01/27/2016 Nurse visit Yvonne Cassidy MD 01/15/2016 Nurse visit Yvonne Cassidy MD 01/08/2016 Office visit Jessie Mock SERVICE CORRESPONDENT 12/25/2015 Nurse visit Yvonne Cassidy MD 12/09/2015 Nurse visit Yvonne Cassidy MD 12/02/2015 Nurse visit Yvnone Cassidy MD 11/29/2015 Nurse visit Donte Hastings SERVICE CORRESPONDENT 11/28/2015 Nurse visit Jessie Mock SERVICE CORRESPONDENT 11/27/2015 Office visit Jessie Mock SERVICE CORRESPONDENT 11/25/2015 Office visit Donte Hastings SERVICE CORRESPONDENT 11/18/2015 Nurse visit Donte Hastings SERVICE CORRESPONDENT 11/11/2015 Nurse visit Jessie Mock SERVICE CORRESPONDENT 11/04/2015 Nurse visit Donte Hastings SERVICE CORRESPONDENT 10/29/2015 Office visit Jessie Mock SERVICE CORRESPONDENT 10/28/2015 Nurse visit Jessie Mock SERVICE CORRESPONDENT 10/21/2015 Nurse visit Glenn Tejeda MD 10/15/2015 Nurse visit Francisco J Jesus DO 10/09/2015 Nurse visit Glenn Tejeda MD 10/02/2015 Office visit April Atkinson SERVICE CORRESPONDENT 10/01/2015 Nurse visit Jessie Mock SERVICE CORRESPONDENT 09/11/2015 Nurse visit Yvonne Cassidy MD 09/05/2015 [...] Office visit 05/29/2015 Office visit Karolyn Millan SERVICE CORRESPONDENT 05/29/2015 Nurse visit Yvonne Cassidy MD 05/14/2015 Nurse visit Francisco J Jesus DO 05/09/2015 Nurse visit Yvonne Cassidy MD 04/30/2015 Nurse visit Yvonne Cassidy MD 04/23/2015 Nurse visit Yvonne Cassidy MD 04/18/2015 Nurse visit Nidia Darby SERVICE CORRESPONDENT 04/09/2015 Nurse visit Yvonne Cassidy MD 04/01/2015 Nurse visit Yvonne Cassidy MD 03/27/[address] Cody Horvath MD 03/25/2015 [facility] Alexander Park MD 03/19/2015 Nurse visit Yvonne Cassidy MD 03/19/2015 Office visit Nidia Darby SERVICE CORRESPONDENT 03/04/2015 Nurse visit Yvonne Cassidy MD 02/25/2015 [...] Office visit 12/31/2014 Office visit Karolyn Millan SERVICE CORRESPONDENT 12/24/2014 Nurse visit Yvonne Cassidy MD 12/17/2014 [...] Cassidy MD 10/11/2014 Office visit Karolyn Millan SERVICE CORRESPONDENT 10/09/2014 Nurse visit Yvonne Cassidy MD 10/04/2014 Nurse visit Yvonne Cassidy MD 09/19/2014 Surgery Karolyn Millan SERVICE CORRESPONDENT 09/13/2014 Office visit Yvonne Cassidy MD 09/06/2014 Nurse visit Yvonne Cassidy MD 08/28/2014 [facility] Chauncey Hogan MD 08/28/2014 [facility] Joe Thomas MD 08/23/2014 Nurse visit Yvonne Cassidy MD 08/22/2014 Surgery Joe Thomas MD 08/16/2014 Nurse visit Yvonne Cassidy MD 08/07/2014 Nurse visit Yvonne Cassidy MD 08/01/2014 Nurse visit Jessie Mock SERVICE CORRESPONDENT 07/25/2014 Nurse visit Nidia Darby SERVICE CORRESPONDENT 07/16/2014 Nurse visit Yvonne Cassidy MD 07/09/2014 [...] Cassidy MD 03/20/2014 Nurse visit Jessie Mock SERVICE CORRESPONDENT 03/13/2014 Nurse visit Donte Hastings SERVICE CORRESPONDENT 03/07/2014 Nurse visit Yvonne Cassidy MD 02/27/2014 Nurse visit Jessie Mock SERVICE CORRESPONDENT 02/20/2014 Nurse visit Donte Hastings SERVICE CORRESPONDENT 02/13/2014 Nurse visit Donte Hastings SERVICE CORRESPONDENT 02/13/2014 Procedures Joe Thomas MD 02/07/2014 Office visit Joe Thomas MD 02/06/2014 Nurse visit Yvonne Cassidy MD 01/17/2014 Nurse visit Nidia Darby SERVICE CORRESPONDENT 01/10/2014 Nurse visit Yvonne Cassidy MD 01/02/2014 Nurse visit Yvonne Cassidy MD 12/26/2013 Nurse visit Yvonne Cassidy MD 12/18/2013 Nurse visit Yvonne Cassidy MD 12/12/2013 Nurse visit Yvonne Cassidy MD 12/05/2013 Nurse visit Yvonne Cassidy MD 11/28/2013 Nurse visit Yvonne Cassidy MD 11/21/2013 Nurse visit Yvonne Cassidy MD 11/14/2013 Nurse visit Yvonne Cassidy MD 11/07/2013 Nurse visit Nidia Darby SERVICE CORRESPONDENT 10/31/2013 Nurse visit Nidia Darby SERVICE CORRESPONDENT 10/25/2013 Nurse visit Nidia Darby SERVICE CORRESPONDENT 10/18/2013 Voided Nidia Darby SERVICE CORRESPONDENT 10/10/2013 Voided Yvonne Cassidy MD 10/03/2013 Nurse [...] Mart MD 04/18/2013 Nurse visit Nidia Darby SERVICE CORRESPONDENT 04/04/2013 Nurse visit Nidia Darby SERVICE CORRESPONDENT 03/28/2013 Nurse visit Nidia Darby SERVICE CORRESPONDENT 03/21/2013 Nurse visit Nidia Darby SERVICE CORRESPONDENT 03/13/2013 Nurse visit Nidia Darby SERVICE CORRESPONDENT 03/09/2013 Nurse visit Nidia Darby SERVICE CORRESPONDENT 03/02/2013 Nurse visit Nidia Darby SERVICE CORRESPONDENT 02/21/2013 Nurse visit Nidia Darby SERVICE CORRESPONDENT 02/13/2013 Office visit Nidia Darby SERVICE CORRESPONDENT 02/06/2013 Nurse visit Bria Mart MD 01/31/2013 [...] Mart MD 10/04/2012 Nurse visit Nidia Darby SERVICE CORRESPONDENT 09/27/2012 Nurse visit Bria Mart MD 09/22/2012 [...] Mart MD 06/07/2012 Nurse visit Nidia Darby SERVICE CORRESPONDENT 06/07/2012 Voided Francisco J Jesus DO 06/01/2012 [...] Mart MD 09/08/2011 Office visit Jessie Mock SERVICE CORRESPONDENT 09/01/2011 Nurse visit Bria Mart MD 08/21/2011 [...]
--- OUTSIDE RECORDS SUMMARY | 2017-05-06 16:07 | XMS REPORT ---
Author Author Yvonne Cassidy Organization [facility] Address [address] [place], [place] [id number] Care Team Providers Care Joint Sealer Name Role Phone Yvonne Cassidy PCP Yvonne [...] 12:00 AM Depo-Medrol 40 mg [facility]#[id number] Reviewed 03/02/2016 12:00 AM IMMUNOTHERAPY INJECTIONS Reviewed [...] 12:00 AM Depo-Medrol 40 mg [facility]#[id number] Reviewed 12/01/2011 12:00 AM IMMUNOTHERAPY INJECTIONS Reviewed [...] Decadron, Per 1 Mg [facility]# [address]-18 Reviewed 02/13/2013 12:00 AM Depo-Medrol, Per 80 Mg [facility]#2157-6811-81 Reviewed 06/05/2013 12:00 AM MAMMOGRAM SCREENING Reviewed [...] CVX Influenza 06/02/2010 sanofi pasteur PMC Fluzone [id number] Intramuscular Left Deltoid 06/02/2010 02/25/2010 999 Influenza 05/09/2015 sanofi pasteur PMC Fluzone [id number] Intramuscular Left Deltoid 05/09/2015 02/22/2015 141 Pneumococcal 06/29/2016 [facility] Prevnar 13 [id number] Intramuscular Right Deltoid 06/29/2016 09/14/2012 133 Zostavax [...] to other allergen Mar 08 2017 4:47PM Payers Insurance Name Company Name Plan Name Plan Number Policy Number Policy Group Number Start Date [facility] [id number] June [facility] Self Insurance Fund *INVALID State Self Insurance [id number] N/A Comp [place] [id number] Wednesday, 2015 History of Encounters Visit Date Visit Type Provider 03/08/2017 Nurse visit Yvonne Cassidy MD 03/01/2017 Office visit Yvonne Cassidy MD 02/23/2017 Nurse visit Yvonne Csasidy MD 02/17/2017 Nurse visit Yvonne Cassidy MD 02/09/2017 Nurse visit Yvonne Cassidy MD 02/01/2017 Nurse visit Yvonne Cassidy MD 01/25/2017 Nurse visit Yvonne Cassidy MD 01/12/2017 Nurse visit Yvonne Cassidy MD 01/05/2017 Nurse visit Yvonne Cassidy MD 12/30/2016 Nurse visit Yvonne Cassidy MD 12/22/2016 Nurse visit Yvonne Cassidy MD 12/08/2016 Nurse visit Donte Hastings BAND MACHINE OPERATOR 12/02/2016 Nurse visit Yvonne Cassidy MD 11/16/2016 Nurse visit Yvonne Cassidy MD 11/10/2016 Nurse visit Yvonne Cassidy MD 11/02/2016 Nurse visit Donte Hastings BAND MACHINE OPERATOR 10/28/2016 Nurse visit Yvonne Cassidy MD 10/06/2016 [...] Cassidy MD 07/14/2016 Nurse visit Donte Hastings BAND MACHINE OPERATOR 07/06/2016 Nurse visit Yvonne Cassidy MD 06/29/2016 Nurse visit Yvonne Cassidy MD 06/24/2016 Nurse visit Yovnne Cassidy MD 06/16/2016 Office visit Yvonne Cassidy MD 06/14/2016 [facility] Alexander Park MD 06/09/2016 Nurse visit Yvonne Cassidy MD 06/02/2016 Office visit 06/02/2016 Office visit Karolyn Millan BAND MACHINE OPERATOR 06/01/2016 Nurse visit Yvonne Cassidy MD 05/27/2016 Nurse visit Yvonne Cassidy MD 05/11/2016 Nurse visit Yvonne Cassidy MD 05/05/2016 Nurse visit Yvonne Cassidy MD 04/29/2016 Nurse visit Yvonne Cassidy MD 04/23/2016 Office visit Jessie Mock BAND MACHINE OPERATOR 04/13/2016 Nurse visit Yvonne Cassidy MD 04/07/2016 Nurse visit Yvonne Cassidy MD 04/01/2016 Office visit Jessie Mock BAND MACHINE OPERATOR 03/26/2016 Nurse visit Yvonne Cassidy MD 03/17/2016 Nurse visit Yvonne Cassidy MD 03/11/2016 Nurse visit Yvonne Cassidy MD 03/04/2016 Office visit Jessie Mock BAND MACHINE OPERATOR 03/02/2016 Nurse visit Yvonne Cassidy MD 02/19/2016 Nurse visit Yvonne Cassidy MD 02/12/2016 Office visit Jessie Mock BAND MACHINE OPERATOR 02/03/2016 Nurse visit Yvonne Cassidy MD 01/27/2016 Nurse visit Yvonne Cassidy MD 01/15/2016 Nurse visit Yvonne Cassidy MD 01/08/2016 Office visit Jessie Mock BAND MACHINE OPERATOR 12/25/2015 Nurse visit Yvonne Cassidy MD 12/09/2015 Nurse visit Yvonne Cassidy MD 12/02/2015 Nurse visit Yvonne Cassidy MD 11/29/2015 Nurse visit Donte Hastings BAND MACHINE OPERATOR 11/28/2015 Nurse visit Jessie Mock BAND MACHINE OPERATOR 11/27/2015 Office visit Jessie Nish BAND MACHINE OPERATOR 11/25/2015 Office visit Donte Hastings BAND MACHINE OPERATOR 11/18/2015 Nurse visit Donte Hastings BAND MACHINE OPERATOR 11/11/2015 Nurse visit Jessie Mock BAND MACHINE OPERATOR 11/04/2015 Nurse visit Donte Hastings BAND MACHINE OPERATOR 10/29/2015 Office visit Jessie Nish BAND MACHINE OPERATOR 10/28/2015 Nurse visit Jessie Nish BAND MACHINE OPERATOR 10/21/2015 Nurse visit Glenn Tejeda MD 10/15/2015 Nurse visit Francisco J Jesus DO 10/09/2015 Nurse visit Glenn Tejeda MD 10/02/2015 Office visit April Atkinson BAND MACHINE OPERATOR 10/01/2015 Nurse visit Jessie Mock BAND MACHINE OPERATOR 09/11/2015 Nurse visit Yvonne Cassidy MD [...] Office visit 05/29/2015 Office visit Karolyn Millan BAND MACHINE OPERATOR 05/29/2015 Nurse visit Yvonne Cassidy MD 05/14/2015 Nurse visit Francisco J Jesus DO 05/09/2015 Nurse visit Yvonne Cassidy MD 04/30/2015 Nurse visit Yvonne Cassidy MD 04/23/2015 Nurse visit Yvonne Cassidy MD 04/18/2015 Nurse visit Nidia Darby BAND MACHINE OPERATOR 04/09/2015 Nurse visit Yvonne Cassidy MD 04/01/2015 Nurse visit Yvonne Cassidy MD 03/27/[address] Cody Horvath MD 03/25/2015 [facility] Alexander Park MD 03/19/2015 Nurse visit Yvonne Cassidy MD 03/19/2015 Office visit Nidia Darby BAND MACHINE OPERATOR 03/04/2015 Nurse visit Yvonne Cassidy MD [...] Office visit 12/31/2014 Office visit Karolyn Millan BAND MACHINE OPERATOR 12/24/2014 Nurse visit Yvonne Cassidy MD 12/17/2014 Nurse visit Yvonne Cassidy MD 12/13/2014 Nurse visit Yvonne Cassidy MD 11/28/2014 Nurse visit Yvonne Cassidy MD 11/19/2014 Nurse visit Yvonne Cassidy MD 11/12/2014 Nurse visit Yvonne Cassidy MD 11/05/2014 Nurse visit Yvonne Cassidy MD 11/05/2014 [facility] Alexander Park MD 10/29/2014 Nurse visit Yvonne Cassidy MD 10/24/2014 Nurse visit Yvonne Cassidy MD 10/15/2014 Nurse visit Yvonne Cassidy MD 10/11/2014 Office visit Karolyn Millan BAND MACHINE OPERATOR 10/09/2014 Nurse visit Yvonne Cassidy MD 10/04/2014 Nurse visit Yvonne Cassidy MD 09/19/2014 Surgery Karolyn Millan BAND MACHINE OPERATOR 09/13/2014 Office visit Yvonne Cassidy MD 09/06/2014 Nurse visit Yvonne Cassidy MD 08/28/2014 Hospital Chauncey Hogan MD 08/28/2014 Hospital Joe Thomas MD 08/23/2014 Nurse visit Yvonne Cassidy MD 08/22/2014 Surgery Joe Thomas MD 08/16/2014 Nurse visit Yvnone Cassidy MD 08/07/2014 Nurse visit Yvonne Cassidy MD 08/01/2014 Nurse visit eJssie Mock BAND MACHINE OPERATOR 07/25/2014 Nurse visit Nidia Darby BAND MACHINE OPERATOR 07/16/2014 Nurse visit Yvonne Cassidy MD [...] Cassidy MD 03/20/2014 Nurse visit Jessie Mock BAND MACHINE OPERATOR 03/13/2014 Nurse visit Donte Hastings BAND MACHINE OPERATOR 03/07/2014 Nurse visit Yvonne Cassidy MD 02/27/2014 Nurse visit Jessie Mock BAND MACHINE OPERATOR 02/20/2014 Nurse visit Donte Hastings BAND MACHINE OPERATOR 02/13/2014 Nurse visit Donte Hastings BAND MACHINE OPERATOR 02/13/2014 Procedures Joe Thomas MD 02/07/2014 Office visit Joe Thomas MD 02/06/2014 Nurse visit Yvonne Cassidy MD 01/17/2014 Nurse visit Nidia Darby BAND MACHINE OPERATOR 01/10/2014 Nurse visit Yvonne Cassidy MD 01/02/2014 Nurse visit Yvonne Cassidy MD 12/26/2013 Nurse visit Yvonne Cassidy MD 12/18/2013 Nurse visit Yvonne Cassidy MD 12/12/2013 Nurse visit vYonne Cassidy MD 12/05/2013 Nurse visit Yvonne Cassidy MD 11/28/2013 Nurse visit Yvonne Cassidy MD 11/21/2013 Nurse visit Yvonne Cassidy MD 11/14/2013 Nurse visit Yvonne Cassidy MD 11/07/2013 Nurse visit Nidia Darby BAND MACHINE OPERATOR 10/31/2013 Nurse visit Nidia Darby BAND MACHINE OPERATOR 10/25/2013 Nurse visit Nidia Darby BAND MACHINE OPERATOR 10/18/2013 Voided Nidia Darby BAND MACHINE OPERATOR 10/10/2013 Voided Yvonne Cassidy MD 10/03/2013 [...] visit Bria Mart MD 05/01/2013 Nurse visit Brai Mart MD 04/18/2013 Nurse visit Nidia Darby BAND MACHINE OPERATOR 04/04/2013 Nurse visit Nidia Darby BAND MACHINE OPERATOR 03/28/2013 Nurse visit Nidia Darby BAND MACHINE OPERATOR 03/21/2013 Nurse visit Nidia Darby BAND MACHINE OPERATOR 03/13/2013 Nurse visit Nidia Daryb BAND MACHINE OPERATOR 03/09/2013 Nurse visit Nidia aDrby BAND MACHINE OPERATOR 03/02/2013 Nurse visit Nidia Darby BAND MACHINE OPERATOR 02/21/2013 Nurse visit Nidia Darby BAND MACHINE OPERATOR 02/13/2013 Office visit Nidia GonzalesZafar Darby BAND MACHINE OPERATOR 02/06/2013 Nurse visit Bria Mart MD [...] MD 10/04/2012 Nurse visit Nidia Sheridan Darby BAND MACHINE OPERATOR 09/27/2012 Nurse visit Bria Mart MD 09/22/2012 Nurse visit Bria Mart MD 09/12/2012 Nurse visit Bria Mart MD 09/05/2012 Nurse visit Francisco J Jesus DO 08/31/2012 Nurse visit Bria Mrat MD 08/23/2012 Nurse visit Bria Mart MD 08/16/2012 Nurse visit Bria Mart MD 08/10/2012 Nurse visit Bria Mart MD 08/03/2012 Nurse visit Bria Mart MD 07/26/2012 Nurse visit Bria Mart MD 07/13/2012 Nurse visit Bria Mart MD 07/05/2012 Nurse visit Bria Mart MD 06/21/2012 Nurse visit Bria Mart MD 06/14/2012 Nurse visit Bria Mart MD 06/07/2012 Nurse visit Nidia Darby BAND MACHINE OPERATOR 06/07/2012 Voided Francisco J Jesus 06/01/2012 [...] Mart MD 09/08/2011 Office visit Jessie Mock BAND MACHINE OPERATOR 09/01/2011 Nurse visit Bria Mart MD [...]
--- OUTSIDE RECORDS SUMMARY | 2017-05-06 16:10 | XMS REPORT ---
Author Author Yvonne Cassidy [facility] Address [address] [place], [place] [id number] Care Team Providers Care Community Health Educator Name Role Phone Yvonne Cassidy PCP Allergies [...] Reviewed 08/21/2011 12:00 AM Depo-Medrol 40 mg [facility]#[id number] Reviewed 09/08/2011 12:00 AM IMMUNOTHERAPY INJECTIONS Reviewed [...] Reviewed 11/27/2011 12:00 AM Depo-Medrol 40 mg [facility]#[id number] Reviewed 12/01/2011 12:00 AM IMMUNOTHERAPY INJECTIONS Reviewed [...] 02/13/2013 12:00 AM Decadron, Per 1 Mg [facility]# [address]-37 Reviewed 02/13/2013 12:00 AM Depo-Medrol, Per 80 Mg [facility]#1793-8302-92 Reviewed 06/05/2013 12:00 AM MAMMOGRAM SCREENING Returned [...] BILI 0.50 mg/dLCALCIUM 10.10 mg/dLeGFR >60 mL/min/1.73 [id number] 10.0 secsINR 1.0 PTT 28.20 secs 08/28/2014 [...] CVX Influenza 06/02/2010 sanofi pasteur PMC Fluzone [id number] Intramuscular Left Deltoid 06/02/2010 02/25/2010 999 Influenza 05/09/2015 sanofi pasteur PMC Fluzone [id number] Intramuscular Left Deltoid 05/09/2015 02/22/2015 141 History [...] 12 2014 5:10PM Allergic rhinitis; due to Jul 09 2014 3:56PM Allergic rhinitis; due [...] to other allergen Dec 25 2015 4:12PM Payers Insurance Name Company Name Plan Name Plan Number Policy Number Policy Group Number Start Date [facility] [id number] June [facility] Self Insurance Fund *INVALID State Self Insurance [id number] N/A Comp [place] [id number] Wednesday, 2015 History of Encounters Visit Date Visit Type Provider 12/25/2015 Nurse visit Yvonne Cassidy MD 12/09/2015 Nurse visit Yvonne Cassidy MD 12/02/2015 Nurse visit Yvonne Cassidy MD 11/29/2015 Nurse visit Donte Hastings SCARRER 11/28/2015 Nurse visit Jessie Mock SCARRER 11/27/2015 Office visit Jessie Mock SCARRER 11/25/2015 Office visit Dnote Hastings SCARRER 11/18/2015 Nurse visit Donte Hastings SCARRER 11/11/2015 Nurse visit Jessie Mock SCARRER 11/04/2015 Nurse visit Donte Hastings SCARRER 10/29/2015 Office visit Jessie Mock SCARRER 10/28/2015 Nurse visit Jessie Mock SCARRER 10/21/2015 Nurse visit Glenn Tejeda MD 10/15/2015 Nurse visit Francisco J Jesus DO 10/09/2015 Nurse visit Glenn Tejeda MD 10/02/2015 Office visit April Atkinson APRN 10/01/2015 Nurse visit Jessie Mock SCARRER 09/11/2015 Nurse visit Yvonne Cassidy MD 09/05/2015 [...] Office visit 05/29/2015 Office visit Karolyn Millan SCARRER 05/29/2015 Nurse visit Yvonne Cassidy MD 05/14/2015 Nurse visit Francisco J Jesus DO 05/09/2015 Nurse visit Yvonne Cassidy MD 04/30/2015 Nurse visit Yvonne Cassidy MD 04/23/2015 Nurse visit Yvonne Cassidy MD 04/18/2015 Nurse visit Nidia Darby SCARRER 04/09/2015 Nurse visit Yvonne Cassidy MD 04/01/2015 Nurse visit Yvonne Cassidy MD 03/27/[address] Cody Horvath MD 03/25/2015 [facility] Alexander Park MD 03/19/2015 Nurse visit Yvonne Cassidy MD 03/19/2015 Office visit Nidia Darby SCARRER 03/04/2015 Nurse visit Yvonne Cassidy MD 02/25/2015 [...] Office visit 12/31/2014 Office visit Karolyn Millan SCARRER 12/24/2014 Nurse visit Yvonne Cassidy MD 12/17/2014 Nurse visit Yvonne Cassidy MD 12/13/2014 Nurse visit Yvonne Cassidy MD 11/28/2014 Nurse visit Yvonne Cassidy MD 11/19/2014 Nurse visit Yvonne Cassidy MD 11/12/2014 Nurse visit Yvonne Cassidy MD 11/05/2014 Nurse visit Yvonne Cassidy MD 11/05/2014 [facility] Alexander Park MD 10/29/2014 Nurse visit Yvonne Cassidy MD 10/24/2014 Nurse visit Yvonne Cassidy MD 10/15/2014 Nurse visit Yvonne Cassidy MD 10/11/2014 Office visit Karolyn Millan SCARRER 10/09/2014 Nurse visit Yvonne Cassidy MD 10/04/2014 Nurse visit Yvonne Cassidy MD 09/19/2014 Surgery Karolyn Millan SCARRER 09/13/2014 Office visit Yvonne Cassidy MD 09/06/2014 Nurse visit Yvonne Cassidy MD 08/28/2014 Hospital Chauncey Hogan MD 08/28/2014 [facility] Joe Thomas MD 08/23/2014 Nurse visit Yvonne Cassidy MD 08/22/2014 Surgery Joe Thomas MD 08/16/2014 Nurse visit Yvonne Cassidy MD 08/07/2014 Nurse visit Yvonne Cassidy MD 08/01/2014 Nurse visit Jessie Mock SCARRER 07/25/2014 Nurse visit Nidia Darby SCARRER 07/16/2014 Nurse visit Yvonne Cassidy MD 07/09/2014 [...] Cassidy MD 03/20/2014 Nurse visit Jessie Mock SCARRER 03/13/2014 Nurse visit Donte Hastings SCARRER 03/07/2014 Nurse visit Yvonne Cassidy MD 02/27/2014 Nurse visit Jessie Mock SCARRER 02/20/2014 Nurse visit Donte Hastings SCARRER 02/13/2014 Nurse visit Donte Hastings SCARRER 02/13/2014 Procedures Joe Thomas MD 02/07/2014 Office visit Joe Thomas MD 02/06/2014 Nurse visit Yvonne Cassidy MD 01/17/2014 Nurse visit Nidia Darby SCARRER 01/10/2014 Nurse visit Yvonne Cassidy MD 01/02/2014 Nurse visit Yvonne Cassidy MD 12/26/2013 Nurse visit Yvonne Cassidy MD 12/18/2013 Nurse visit Yvonne Cassidy MD 12/12/2013 Nurse visit Yvonne Cassidy MD 12/05/2013 Nurse visit Yvonne Cassidy MD 11/28/2013 Nurse visit Yvonne Cassidy MD 11/21/2013 Nurse visit Yvonne Cassidy MD 11/14/2013 Nurse visit Yvonne Cassidy MD 11/07/2013 Nurse visit Nidia Darby SCARRER 10/31/2013 Nurse visit Nidia Darby SCARRER 10/25/2013 Nurse visit Nidia Darby SCARRER 10/18/2013 Voided Nidia Darby SCARRER 10/10/2013 Voided Yvonne Cassidy MD 10/03/2013 Nurse visit Yvonne Cassidy MD 09/18/2013 Office visit Yvonne Cassidy MD 09/15/2013 Nurse visit Yvonne Cassidy MD 09/08/2013 Office visit Joe Thomas MD 09/05/2013 Nurse visit Yvonne Cassidy MD 08/29/2013 Nurse visit Yvnone Cassidy MD 08/21/2013 Nurse visit Yvonne Cassidy [...] MD 04/18/2013 Nurse visit Nidia Sheridan Darby SCARRER 04/04/2013 Nurse visit Nidia Darby SCARRER 03/28/2013 Nurse visit Nidia Darby SCARRER 03/21/2013 Nurse visit Nidia Darby SCARRER 03/13/2013 Nurse visit Nidia Darby SCARRER 03/09/2013 Nurse visit Nidia Darby SCARRER 03/02/2013 Nurse visit Nidia Darby SCARRER 02/21/2013 Nurse visit Nidia Darby SCARRER 02/13/2013 Office visit Nidia Darby SCARRER 02/06/2013 Nurse visit Bira Mart MD 01/31/2013 Nurse visit Bria Mart [...] Mart MD 10/04/2012 Nurse visit Nidia Darby SCARRER 09/27/2012 Nurse visit Bria Mart MD 09/22/2012 [...] visit Bria Mart MD 08/06/2011 Office visit rBia Mart MD 07/28/2011 Nurse visit Bria Mart [...]
--- OUTSIDE RECORDS SUMMARY | 2017-05-06 16:12 | XMS REPORT ---
Author Author Yvonne Cassidy [facility] Address [address] [place], [place] [address] Care Team Providers Care Paint Roller Cover Machine Setter Name Role Phone Yvonne Cassidy PCP Allergies and Adverse Reactions Name Reaction Notes Ceftin rash Erythromycin rash PENICILLINS rash Plan of Treatment Planned Activity Comments Planned Date Planned Time Plan/Goal IMMUNOTHERAPY INJECTIONS 04/18/2015 12:00 AM IMMUNOTHERAPY INJECTIONS 03/27/2015 12:00 AM IMMUNOTHERAPY INJECTIONS 07/22/2015 12:00 AM IMMUNOTHERAPY INJECTIONS 07/29/2015 12:00 AM IMMUNOTHERAPY INJECTIONS 01/05/2012 12:00 AM [...] 08/21/2011 12:00 AM Depo-Medrol 40 mg [facility]#[id number] Reviewed 09/08/2011 12:00 AM IMMUNOTHERAPY INJECTIONS Reviewed [...] 11/27/2011 12:00 AM Depo-Medrol 40 mg [facility]#[id number] Reviewed 12/01/2011 12:00 AM IMMUNOTHERAPY INJECTIONS Reviewed [...] 12:00 AM Decadron, Per 1 Mg [facility]# [id number] Reviewed 02/13/2013 12:00 AM Depo-Medrol, Per 80 Mg [facility]#[id number] Reviewed 06/05/2013 12:00 AM MAMMOGRAM SCREENING Returned [...] BILI 0.50 mg/dLCALCIUM 10.10 mg/dLeGFR >60 mL/min/1.73 [id number] 10.0 secsINR 1.0 PTT 28.20 secs 08/28/2014 [...] CVX Influenza 06/02/2010 sanofi pasteur PMC Fluzone [id number] Intramuscular Left Deltoid 06/02/2010 02/25/2010 999 Influenza 05/09/2015 [facility] Fluzone [id number] Intramuscular Left Deltoid 05/09/2015 02/22/2015 141 History [...] Number Start Date [employer] [id number] [place] Self Insurance Fund *INVALID State Self Insurance [id number] N /A History of Encounters Visit Date Visit Type Provider 07/29/2015 Nurse visit Yvonne Cassidy MD 07/22/2015 Nurse visit Yvonne Cassidy MD 07/09/2015 Nurse visit Yvonne Cassidy MD 07/01/2015 Nurse visit Yvonne Cassidy MD 06/26/2015 Nurse visit Yvonne Cassidy MD 06/17/2015 Nurse visit Yvonne Cassidy MD 06/10/2015 Nurse visit Yvonne Cassidy MD 06/04/2015 Nurse visit Yvonne Cassidy MD 05/29/2015 Office visit Karolyn Millan FRAME GATE MORTISER OPERATOR 05/29/2015 Nurse visit Yvonne Cassidy MD 05/14/2015 Nurse visit Francisco J Jesus DO 05/09/2015 Nurse visit Yvonne Cassidy MD 04/30/2015 Nurse visit Yvonne Cassidy MD 04/23/2015 Nurse visit Yvonne Cassidy MD 04/18/2015 Nurse visit Nidia Darby FRAME GATE MORTISER OPERATOR 04/09/2015 Nurse visit Yvonne Cassidy MD 04/01/2015 Nurse visit Yvonne Cassidy MD 03/27/[address] Cody Horvath MD 03/25/2015 [facility] Alexander Park MD 03/19/2015 Nurse visit Yvonne Cassidy MD 03/19/2015 Office visit Nidia Darby FRAME GATE MORTISER OPERATOR 03/04/2015 Nurse visit Yvonne Cassidy MD [...] Cassidy MD 12/31/2014 Office visit Karolyn Millan FRAME GATE MORTISER OPERATOR 12/24/2014 Nurse visit Yvonne Cassidy MD 12/17/2014 Nurse visit Yvonne Cassidy MD 12/13/2014 Nurse visit Yvonne Cassidy MD 11/28/2014 Nurse visit Yvonne Cassidy MD 11/19/2014 Nurse visit Yvonne Cassidy MD 11/12/2014 Nurse visit Yvonne Cassidy MD 11/05/2014 Nurse visit Yvonne Cassidy MD 11/05/2014 [facility] Darin Park MD 10/29/2014 Nurse visit Yvonne Cassidy MD 10/24/2014 Nurse visit Yvonne Cassidy MD 10/15/2014 Nurse visit Yvonne Cassidy MD 10/11/2014 Office visit Karolyn Millan FRAME GATE MORTISER OPERATOR 10/09/2014 Nurse visit Yvonne Cassidy MD 10/04/2014 Nurse visit Yvonne Cassidy MD 09/19/2014 Surgery Karolyn Millan FRAME GATE MORTISER OPERATOR 09/13/2014 Office visit Yvonne Cassidy MD 09/06/2014 Nurse visit Yvonne Cassidy MD 08/28/2014 [facility] Chauncey Hogan MD 08/28/2014 [facility] Joe Thomas MD 08/23/2014 Nurse visit Yvonne Cassidy MD 08/22/2014 Surgery Joe Thomas MD 08/16/2014 Nurse visit Yvonne Cassidy MD 08/07/2014 Nurse visit Yvonne Cassidy MD 08/01/2014 Nurse visit Jessie Mock FRAME GATE MORTISER OPERATOR 07/25/2014 Nurse visit Nidia Darby FRAME GATE MORTISER OPERATOR 07/16/2014 Nurse visit Yvonne Cassidy MD [...] Cassidy MD 03/20/2014 Nurse visit Jessie Mock FRAME GATE MORTISER OPERATOR 03/13/2014 Nurse visit Donte Hastings FRAME GATE MORTISER OPERATOR 03/07/2014 Nurse visit Yvonne Cassidy MD 02/27/2014 Nurse visit Jessie Mock FRAME GATE MORTISER OPERATOR 02/20/2014 Nurse visit Donte Hastings FRAME GATE MORTISER OPERATOR 02/13/2014 Nurse visit Donte Hastings FRAME GATE MORTISER OPERATOR 02/13/2014 Procedures Joe Thomas MD 02/07/2014 Office visit Joe Thomas MD 02/06/2014 Nurse visit Yvonne Cassidy MD 01/17/2014 Nurse visit Nidia Darby FRAME GATE MORTISER OPERATOR 01/10/2014 Nurse visit Yvonne Cassidy MD 01/02/2014 Nurse visit Yvonne Cassidy MD 12/26/2013 Nurse visit Yvonne Cassidy MD 12/18/2013 Nurse visit Yvonne Cassidy MD 12/12/2013 Nurse visit Yvonne Cassidy MD 12/05/2013 Nurse visit Yvonne Cassidy MD 11/28/2013 Nurse visit Yvonne Cassidy MD 11/21/2013 Nurse visit Yvonne Cassidy MD 11/14/2013 Nurse visit Yvonne Cassidy MD 11/07/2013 Nurse visit Nidia Darby FRAME GATE MORTISER OPERATOR 10/31/2013 Nurse visit Nidia Darby FRAME GATE MORTISER OPERATOR 10/25/2013 Nurse visit Nidia Darby FRAME GATE MORTISER OPERATOR 10/18/2013 Voided Nidia Darby FRAME GATE MORTISER OPERATOR 10/10/2013 Voided Yvonne Cassidy MD 10/03/2013 [...] Mart MD 04/18/2013 Nurse visit Nidia Darby FRAME GATE MORTISER OPERATOR 04/04/2013 Nurse visit Nidia Darby FRAME GATE MORTISER OPERATOR 03/28/2013 Nurse visit Nidia Darby FRAME GATE MORTISER OPERATOR 03/21/2013 Nurse visit Nidia Darby FRAME GATE MORTISER OPERATOR 03/13/2013 Nurse visit Nidia Darby FRAME GATE MORTISER OPERATOR 03/09/2013 Nurse visit Nidia Darby FRAME GATE MORTISER OPERATOR 03/02/2013 Nurse visit Nidia Darby FRAME GATE MORTISER OPERATOR 02/21/2013 Nurse visit Nidia Darby FRAME GATE MORTISER OPERATOR 02/13/2013 Office visit Nidia Darby FRAME GATE MORTISER OPERATOR 02/06/2013 Nurse visit Bria Mart MD [...] Mart MD 10/04/2012 Nurse visit Nidia Darby FRAME GATE MORTISER OPERATOR 09/27/2012 Nurse visit Bria Mart MD [...] Mart MD 06/07/2012 Nurse visit Nidia Darby FRAME GATE MORTISER OPERATOR 06/07/2012 Voided Francisco J Jesus DO [...] visit Bria Mart MD 11/27/2011 Office visit rBia Mart MD 11/26/2011 Nurse visit Bria Mart [...] Mart MD 09/08/2011 Office visit Jessie Mock FRAME GATE MORTISER OPERATOR 09/01/2011 Nurse visit Bria Mart MD [...] visit Bria Mart MD 04/22/2011 Nurse visit Brai Mart MD 04/15/2011 Nurse visit Bria Mart [...]
--- OUTSIDE RECORDS SUMMARY | 2017-05-06 16:16 | XMS REPORT ---
Author Author Yvonne Cassidy Organization [facility] Address [address] [place], [place] [id number] Care Team Providers Care Planer Stone Name Role Phone Yvonne Cassidy PCP Yvonne [...] Reviewed 08/21/2011 12:00 AM Depo-Medrol 40 mg [facility]#[id number] Reviewed 03/02/2016 12:00 AM IMMUNOTHERAPY INJECTIONS Reviewed [...] Reviewed 11/27/2011 12:00 AM Depo-Medrol 40 mg [facility]#[id number] Reviewed 12/01/2011 12:00 AM IMMUNOTHERAPY INJECTIONS Reviewed [...] 02/13/2013 12:00 AM Decadron, Per 1 Mg [facility]# [id number] Reviewed 02/13/2013 12:00 AM Depo-Medrol, Per 80 Mg [facility]#[id number] Reviewed 06/05/2013 12:00 AM MAMMOGRAM SCREENING Reviewed [...] CVX Influenza 06/02/2010 sanofi pasteur PMC Fluzone [id number] Intramuscular Left Deltoid 06/02/2010 02/25/2010 999 Influenza 05/09/2015 sanofi pasteur PMC Fluzone [id number] Intramuscular Left Deltoid 05/09/2015 02/22/2015 141 Pneumococcal 06/29/2016 Krqeo-Qjiewi-PhgdyyuPraxis WAL Prevnar 13 [id number] Intramuscular Right Deltoid 06/29/2016 09/14/2012 133 Zostavax [...] to other allergen Dec 30 2016 3:27PM Payers Insurance Name Company Name Plan Name Plan Number Policy Number Policy Group Number [id number]INVALID State Self Insurance [id number] N/A Comp [place] [id number] Wednesday, 2015 History of Encounters Visit Date Visit Type Provider 12/30/2016 Nurse visit Yvonne Cassidy MD 12/22/2016 Nurse visit Yvonne Cassidy MD 12/08/2016 Nurse visit Donte Hastings FILLER SIFTER MACHINE 12/02/2016 Nurse visit Yvonne Cassidy MD 11/16/2016 Nurse visit Yvonne Cassidy MD 11/10/2016 Nurse visit Yvonne Cassidy MD 11/02/2016 Nurse visit Donte Hastings FILLER SIFTER MACHINE 10/28/2016 Nurse visit Yvonne Cassidy MD 10/06/2016 Office visit MAGI BLANKENSHIPVER DO 09/15/2016 Nurse visit Francisco J Jesus DO 09/08/2016 Nurse visit Francisco J Jesus DO 09/02/2016 Nurse visit Yvonne Cassidy MD 08/25/2016 Nurse visit Yvonne Cassidy MD 08/19/2016 Nurse visit Yvonne Cassidy MD 08/13/2016 Nurse visit Yvonne Cassidy MD 08/04/2016 Nurse visit Yvonne Cassidy MD 07/29/2016 Nurse visit Yvonne Cassidy MD 07/14/2016 Nurse visit Donte Hastings FILLER SIFTER MACHINE 07/06/2016 Nurse visit Yvonne Cassidy MD 06/29/2016 Nurse visit Yvonne Cassidy MD 06/24/2016 Nurse visit Yvonne Cassidy MD 06/16/2016 Office visit Yvonne Cassidy MD 06/14/2016 [facility] Alexander Park MD 06/09/2016 Nurse visit Yvonne Cassidy MD 06/02/2016 Office visit 06/02/2016 Office visit Karolyn Millan FILLER SIFTER MACHINE 06/01/2016 Nurse visit Yvonne Cassidy MD 05/27/2016 Nurse visit Yvonne Cassidy MD 05/11/2016 Nurse visit Yvonne Cassidy MD 05/05/2016 Nurse visit Yvonne Cassidy MD 04/29/2016 Nurse visit Yvonne Cassidy MD 04/23/2016 Office visit Jessie Mock FILLER SIFTER MACHINE 04/13/2016 Nurse visit Yvonne Cassidy MD 04/07/2016 Nurse visit Yvonne Cassidy MD 04/01/2016 Office visit Jessie Mock FILLER SIFTER MACHINE 03/26/2016 Nurse visit Yvonne Cassidy MD 03/17/2016 Nurse visit Yvonne Cassidy MD 03/11/2016 Nurse visit Yvonne Cassidy MD 03/04/2016 Office visit Jessie Mock FILLER SIFTER MACHINE 03/02/2016 Nurse visit Yvonne Cassidy MD 02/19/2016 Nurse visit Yvonne Cassidy MD 02/12/2016 Office visit Jessie Mock FILLER SIFTER MACHINE 02/03/2016 Nurse visit Yvonne Cassidy MD 01/27/2016 Nurse visit Yvonne Cassidy MD 01/15/2016 Nurse visit Yvonne Cassidy MD 01/08/2016 Office visit Jessie Mock FILLER SIFTER MACHINE 12/25/2015 Nurse visit Yvonne Cassidy MD 12/09/2015 Nurse visit Yvonne Cassidy MD 12/02/2015 Nurse visit Yvonne Cassidy MD 11/29/2015 Nurse visit Donte Hastings FILLER SIFTER MACHINE 11/28/2015 Nurse visit Jessie Mock FILLER SIFTER MACHINE 11/27/2015 Office visit Jessie Mock FILLER SIFTER MACHINE 11/25/2015 Office visit Donte Darling FILLER SIFTER MACHINE 11/18/2015 Nurse visit Donte Gerberran FILLER SIFTER MACHINE 11/11/2015 Nurse visit Jessie Mock FILLER SIFTER MACHINE 11/04/2015 Nurse visit Donte Darling FILLER SIFTER MACHINE 10/29/2015 Office visit Jessie Mock FILLER SIFTER MACHINE 10/28/2015 Nurse visit Jessie Nish FILLER SIFTER MACHINE 10/21/2015 Nurse visit Glenn Tejeda MD 10/15/2015 Nurse visit Francisco J Jesus DO 10/09/2015 Nurse visit Glenn Tejeda MD 10/02/2015 Office visit April Atkinson FILLER SIFTER MACHINE 10/01/2015 Nurse visit Jessie Mock FILLER SIFTER MACHINE 09/11/2015 Nurse visit Yvonne Cassidy MD 09/05/2015 [...] Office visit 05/29/2015 Office visit Karolyn Millan FILLER SIFTER MACHINE 05/29/2015 Nurse visit Yvonne Cassidy MD 05/14/2015 Nurse visit Francisco J Jesus DO 05/09/2015 Nurse visit Yvonne Cassidy MD 04/30/2015 Nurse visit Yvonne Cassidy MD 04/23/2015 Nurse visit Yvonne Cassidy MD 04/18/2015 Nurse visit Nidia Darby FILLER SIFTER MACHINE 04/09/2015 Nurse visit Yvonne Cassidy MD 04/01/2015 Nurse visit Yvonne Cassidy MD 03/27/[address] Cody Horvath MD 03/25/2015 [facility] Darin Park MD 03/19/2015 Nurse visit Yvonne Cassidy MD 03/19/2015 Office visit Nidia Darby FILLER SIFTER MACHINE 03/04/2015 Nurse visit Yvonne Cassidy MD 02/25/2015 [...] Office visit 12/31/2014 Office visit Karolyn Millan FILLER SIFTER MACHINE 12/24/2014 Nurse visit Yvonne Cassidy MD 12/17/2014 [...] Cassidy MD 10/11/2014 Office visit Karolyn Millan FILLER SIFTER MACHINE 10/09/2014 Nurse visit Yvonne Cassidy MD 10/04/2014 Nurse visit Yvonne Cassidy MD 09/19/2014 Surgery Karolyn Millan FILLER SIFTER MACHINE 09/13/2014 Office visit Yvonne Cassidy MD 09/06/2014 Nurse visit Yvonne Cassidy MD 08/28/2014 [facility] Chauncey Hogan MD 08/28/2014 [facility] Joe Thomas MD 08/23/2014 Nurse visit Yvonne Cassidy MD 08/22/2014 Surgery Joe Thomas MD 08/16/2014 Nurse visit Yvonne Cassidy MD 08/07/2014 Nurse visit Yvonne Cassidy MD 08/01/2014 Nurse visit Jessie Mock FILLER SIFTER MACHINE 07/25/2014 Nurse visit Nidia Darby FILLER SIFTER MACHINE 07/16/2014 Nurse visit Yvonne Cassidy MD 07/09/2014 [...] Cassidy MD 03/20/2014 Nurse visit Jessie Mock FILLER SIFTER MACHINE 03/13/2014 Nurse visit Donte Hastings FILLER SIFTER MACHINE 03/07/2014 Nurse visit Yvonne Cassidy MD 02/27/2014 Nurse visit Jessie Mock FILLER SIFTER MACHINE 02/20/2014 Nurse visit Donte Hastings FILLER SIFTER MACHINE 02/13/2014 Nurse visit Donte Hastings FILLER SIFTER MACHINE 02/13/2014 Procedures Joe Tohmas MD 02/07/2014 Office visit Joe Thomas MD 02/06/2014 Nurse visit Yvonne Cassidy MD 01/17/2014 Nurse visit Nidia Darby FILLER SIFTER MACHINE 01/10/2014 Nurse visit Yvonne Cassidy MD 01/02/2014 Nurse visit Yvonne Cassidy MD 12/26/2013 Nurse visit Yvonne Cassidy MD 12/18/2013 Nurse visit Yvonne Cassidy MD 12/12/2013 Nurse visit Yvonne Cassidy MD 12/05/2013 Nurse visit Yvonne Cassidy MD 11/28/2013 Nurse visit Yvonne Cassidy MD 11/21/2013 Nurse visit Yvonne Cassidy MD 11/14/2013 Nurse visit Yvonne Cassidy MD 11/07/2013 Nurse visit Nidia Darby FILLER SIFTER MACHINE 10/31/2013 Nurse visit Nidia Darby FILLER SIFTER MACHINE 10/25/2013 Nurse visit Nidia Darby FILLER SIFTER MACHINE 10/18/2013 Voided Nidia Darby FILLER SIFTER MACHINE 10/10/2013 Voided Yvonne Cassidy MD 10/03/2013 Nurse [...] Mart MD 04/18/2013 Nurse visit Nidia Darby FILLER SIFTER MACHINE 04/04/2013 Nurse visit Nidia Darby FILLER SIFTER MACHINE 03/28/2013 Nurse visit Nidia Darby FILLER SIFTER MACHINE 03/21/2013 Nurse visit Nidia Darby FILLER SIFTER MACHINE 03/13/2013 Nurse visit Nidia Darby FILLER SIFTER MACHINE 03/09/2013 Nurse visit Nidia Darby FILLER SIFTER MACHINE 03/02/2013 Nurse visit Nidia Darby FILLER SIFTER MACHINE 02/21/2013 Nurse visit Nidia Sheridan Darby FILLER SIFTER MACHINE 02/13/2013 Office visit Nidia Darby FILLER SIFTER MACHINE 02/06/2013 Nurse visit Bria Mart MD 01/31/2013 [...] Mart MD 10/04/2012 Nurse visit Nidia Darby FILLER SIFTER MACHINE 09/27/2012 Nurse visit Bria Mart MD 09/22/2012 [...] Mart MD 06/07/2012 Nurse visit Nidia Darby FILLER SIFTER MACHINE 06/07/2012 Voided Francisco J Jesus DO 06/01/2012 [...] Mart MD 09/08/2011 Office visit Jessie Mock FILLER SIFTER MACHINE 09/01/2011 Nurse visit Bria Mart MD 08/21/2011 [...]
--- OUTSIDE RECORDS SUMMARY | 2017-05-06 16:18 | XMS REPORT ---
Author Author Yvonne Cassidy [facility] Address [address] [place], [place] [address] Care Team Providers Care Ergonomics Engineer Name Role Phone Yvonne Cassidy PCP [...] 08/21/2011 12:00 AM Depo-Medrol 40 mg [facility]#[id number] Reviewed 03/02/2016 12:00 AM IMMUNOTHERAPY INJECTIONS Reviewed 03/06/2016 12:00 AM IMMUNOTHERAPY INJECTIONS Reviewed 03/11/2016 12:00 AM IMMUNOTHERAPY INJECTIONS Reviewed 09/08/2011 12:00 [...] 11/27/2011 12:00 AM Depo-Medrol 40 mg [facility]#[id number] Reviewed 12/01/2011 12:00 AM IMMUNOTHERAPY INJECTIONS Reviewed [...] 12:00 AM Decadron, Per 1 Mg [facility]# [address]-84 Reviewed 02/13/2013 12:00 AM Depo-Medrol, Per 80 Mg [facility]#[id number] Reviewed 06/05/2013 12:00 AM MAMMOGRAM SCREENING Returned [...] BILI 0.50 mg/dLCALCIUM 10.10 mg/dLeGFR >60 mL/min/1.73 [id number] 10.0 secsINR 1.0 PTT 28.20 secs 08/28/2014 [...] CVX Influenza 06/02/2010 sanofi pasteur PMC Fluzone [id number] Intramuscular Left Deltoid 06/02/2010 02/25/2010 999 Influenza 05/09/2015 sanofi pasteur PMC Fluzone [id number] Intramuscular Left Deltoid 05/09/2015 02/22/2015 141 History [...] to other allergen Mar 11 2016 5:07PM Payers Insurance Name Company Name Plan Name Plan Number Policy Number Policy Group Number [id number] June [facility] Self Insurance Fund *INVALID State Self Insurance [id number] N/A Comp [place] [id number] Wednesday, 2015 History of Encounters Visit Date Visit Type Provider 03/11/2016 Nurse visit Yvonne Cassidy MD 03/04/2016 Office visit Jessie Mock TRAIN BRAKE OPERATOR 03/02/2016 Nurse visit Yvonne Cassidy MD 02/19/2016 Nurse visit Yvonne Cassidy MD 02/12/2016 Office visit Jessie Mock TRAIN BRAKE OPERATOR 02/03/2016 Nurse visit Yvonne Cassidy MD 01/27/2016 Nurse visit Yvonne Cassidy MD 01/15/2016 Nurse visit Yvonne Cassidy MD 01/08/2016 Office visit Jessie Mock TRAIN BRAKE OPERATOR 12/25/2015 Nurse visit Yvonne Cassidy MD 12/09/2015 Nurse visit Yvonne Cassidy MD 12/02/2015 Nurse visit Yvonne Cassidy MD 11/29/2015 Nurse visit Donte Hastings APRN 11/28/2015 Nurse visit Jessie Mock TRAIN BRAKE OPERATOR 11/27/2015 Office visit Jessie Mock TRAIN BRAKE OPERATOR 11/25/2015 Office visit Donte Darling TRAIN BRAKE OPERATOR 11/18/2015 Nurse visit Donte Darling TRAIN BRAKE OPERATOR 11/11/2015 Nurse visit Jessie Mock TRAIN BRAKE OPERATOR 11/04/2015 Nurse visit Donte Hastings TRAIN BRAKE OPERATOR 10/29/2015 Office visit Jessie Mock TRAIN BRAKE OPERATOR 10/28/2015 Nurse visit Jessie Mock TRAIN BRAKE OPERATOR 10/21/2015 Nurse visit Glenn Tejeda MD 10/15/2015 Nurse visit Francisco J Jesus DO 10/09/2015 Nurse visit Glenn Tejeda MD 10/02/2015 Office visit April Atkinson TRAIN BRAKE OPERATOR 10/01/2015 Nurse visit Jessie Nish TRAIN BRAKE OPERATOR 09/11/2015 Nurse visit Yvonne Cassidy MD [...] Office visit 05/29/2015 Office visit Karolyn Millan TRAIN BRAKE OPERATOR 05/29/2015 Nurse visit Yvonne Cassidy MD 05/14/2015 Nurse visit Francisco J Jesus DO 05/09/2015 Nurse visit Yvonne Cassidy MD 04/30/2015 Nurse visit Yvonne Cassidy MD 04/23/2015 Nurse visit Yvonne Cassidy MD 04/18/2015 Nurse visit Nidia Darby TRAIN BRAKE OPERATOR 04/09/2015 Nurse visit Yvonne Cassidy MD 04/01/2015 Nurse visit Yvonne Cassidy MD 03/27/[address] Cody Horvath MD 03/25/2015 [facility] Alexander Park MD 03/19/2015 Nurse visit Yvonne Cassidy MD 03/19/2015 Office visit Nidia Darby TRAIN BRAKE OPERATOR 03/04/2015 Nurse visit Yvonne Cassidy MD [...] Office visit 12/31/2014 Office visit Karolyn Millan TRAIN BRAKE OPERATOR 12/24/2014 Nurse visit Yvonne Cassidy MD 12/17/2014 Nurse visit Yvonne Cassidy MD 12/13/2014 Nurse visit Yvonne Cassidy MD 11/28/2014 Nurse visit Yvonne Cassidy MD 11/19/2014 Nurse visit Yvonne Cassidy MD 11/12/2014 Nurse visit Yvonne Cassidy MD 11/05/2014 Nurse visit Yvonne Cassidy MD 11/05/2014 [facility] Alexander Park MD 10/29/2014 Nurse visit Yvonne Cassidy MD 10/24/2014 Nurse visit Yvonne Cassidy MD 10/15/2014 Nurse visit Yvonne Cassidy MD 10/11/2014 Office visit Karolyn Millan TRAIN BRAKE OPERATOR 10/09/2014 Nurse visit Yvonne Cassidy MD 10/04/2014 Nurse visit Yvonne Cassidy MD 09/19/2014 Surgery Karolyn Millan TRAIN BRAKE OPERATOR 09/13/2014 Office visit Yvonne Cassidy MD 09/06/2014 Nurse visit Yvonne Cassidy MD 08/28/2014 [facility] Chauncey Hogan MD 08/28/2014 [facility] Joe Thomas MD 08/23/2014 Nurse visit Yvonne Cassidy MD 08/22/2014 Surgery Joe Thomas MD 08/16/2014 Nurse visit Yvonne Cassidy MD 08/07/2014 Nurse visit Yvonne Cassidy MD 08/01/2014 Nurse visit Jessie Mock TRAIN BRAKE OPERATOR 07/25/2014 Nurse visit Nidia Darby TRAIN BRAKE OPERATOR 07/16/2014 Nurse visit Yvonne Cassidy MD [...] Cassidy MD 03/20/2014 Nurse visit Jessie Mock TRAIN BRAKE OPERATOR 03/13/2014 Nurse visit Dnote Hastings TRAIN BRAKE OPERATOR 03/07/2014 Nurse visit Yvonne Cassidy MD 02/27/2014 Nurse visit Jessie Mock TRAIN BRAKE OPERATOR 02/20/2014 Nurse visit Donte Hastings TRAIN BRAKE OPERATOR 02/13/2014 Nurse visit Donet Hastings TRAIN BRAKE OPERATOR 02/13/2014 Procedures Joe Thomas MD 02/07/2014 Office visit Joe Thomas MD 02/06/2014 Nurse visit Yvonne Cassidy MD 01/17/2014 Nurse visit Nidia Darby TRAIN BRAKE OPERATOR 01/10/2014 Nurse visit Yvonne Cassidy MD 01/02/2014 Nurse visit Yvonne Cassidy MD 12/26/2013 Nurse visit Yvonne Cassidy MD 12/18/2013 Nurse visit Yvonne Cassidy MD 12/12/2013 Nurse visit Yvonne Cassidy MD 12/05/2013 Nurse visit Yvonne Cassidy MD 11/28/2013 Nurse visit Yvonne Cassidy MD 11/21/2013 Nurse visit Yvonne Cassidy MD 11/14/2013 Nurse visit Yvonne Cassidy MD 11/07/2013 Nurse visit Nidia Darby TRAIN BRAKE OPERATOR 10/31/2013 Nurse visit Nidia Darby TRAIN BRAKE OPERATOR 10/25/2013 Nurse visit Nidia Darby TRAIN BRAKE OPERATOR 10/18/2013 Voided Nidia Darby TRAIN BRAKE OPERATOR 10/10/2013 Voided Yvonne Cassidy MD 10/03/2013 [...] Mart MD 04/18/2013 Nurse visit Nidia Darby TRAIN BRAKE OPERATOR 04/04/2013 Nurse visit Nidia Darby TRAIN BRAKE OPERATOR 03/28/2013 Nurse visit Nidia Darby TRAIN BRAKE OPERATOR 03/21/2013 Nurse visit Nidia Darby TRAIN BRAKE OPERATOR 03/13/2013 Nurse visit Nidia Darby TRAIN BRAKE OPERATOR 03/09/2013 Nurse visit Nidia Darby TRAIN BRAKE OPERATOR 03/02/2013 Nurse visit Nidia Darby TRAIN BRAKE OPERATOR 02/21/2013 Nurse visit Nidia Darby TRAIN BRAKE OPERATOR 02/13/2013 Office visit Nidia Darby TRAIN BRAKE OPERATOR 02/06/2013 Nurse visit Bria Mart MD [...] Mart MD 10/04/2012 Nurse visit Nidia Darby TRAIN BRAKE OPERATOR 09/27/2012 Nurse visit Bria Mart MD [...] Mart MD 06/07/2012 Nurse visit Nidia Darby TRAIN BRAKE OPERATOR 06/07/2012 Voided Francisco J Jesus DO 06/01/2012 Office visit Bria Mart MD 05/24/2012 Nurse visit Bria Mart MD 05/17/2012 Nurse visit Bria Mart MD 05/10/2012 Nurse visit Bria Mart MD 05/03/2012 Nurse visit Bria Mart MD 04/26/2012 Nurse visit Bria Mart MD 04/21/2012 Nurse visit Bria Mart MD 04/12/2012 Nurse visit Brai Mart MD 04/05/2012 Nurse visit Bria Mart [...] Bria Mrat MD 10/20/2011 Nurse visit Bria Mart MD [...]
--- OUTSIDE RECORDS SUMMARY | 2017-05-06 16:21 | XMS REPORT ---
Author Author Yvonne Cassidy Organization [facility] Address [address] [place], [place] [id number] Care Team Providers Care Fitter Welder Name Role Phone Yvonne Cassidy PCP Yvonne [...] EKG. 04/23/2016 12:00 AM Allergy Injection Multiple 09/30/2012 12:00 [...] Multiple 08/01/2014 12:00 AM Allergy Injection Multiple 08/23/2014 12:00 [...] 5 days Pen Needle 32 gauge x 32" miscellaneous needle 06/26/2016 07/26/2016 use as directed [...] Reviewed 08/21/2011 12:00 AM Depo-Medrol 40 mg [facility][NOTE 3]#[id number] Reviewed 03/02/2016 12:00 AM IMMUNOTHERAPY INJECTIONS Reviewed [...] MRI BRAIN STEM W/O & W/DYE Reviewed 09/24/2011 12:00 AM IMMUNOTHERAPY INJECTIONS Reviewed [...] Reviewed 11/27/2011 12:00 AM Depo-Medrol 40 mg [facility][NOTE 3]#[id number] Reviewed 12/01/2011 12:00 AM IMMUNOTHERAPY INJECTIONS Reviewed [...] 02/13/2013 12:00 AM Decadron, Per 1 Mg [facility][NOTE 3]# [address]-21 Reviewed 02/13/2013 12:00 AM Depo-Medrol, Per 80 Mg [facility][NOTE 3]#[id number] Reviewed 06/05/2013 12:00 AM MAMMOGRAM SCREENING Reviewed [...] CVX Influenza 06/02/2010 sanofi pasteur PMC Fluzone [id number] Intramuscular Left Deltoid 06/02/2010 02/25/2010 999 Influenza 05/09/2015 sanofi pasteur PMC Fluzone [id number] Intramuscular Left Deltoid 05/09/2015 02/22/2015 141 Pneumococcal 06/29/2016 Wlxqj-Zcfpgm-Vmuxrjs-Praxis [facility] Prevnar 13 [id number] Intramuscular Right Deltoid 06/29/2016 09/14/2012 133 Zostavax [...] to other allergen Nov 18 2016 2:26PM Payers Insurance Name Company Name Plan Name Plan Number Policy Number Policy Group Number Start Date BCBS [facility] [id number] June [facility] Self Insurance Fund *INVALID State Self Insurance [id number] N/A Comp [place] Comp [place] [id number] Wednesday, 2015 History of Encounters Visit Date Visit Type Provider 11/16/2016 Nurse visit Yvonne Cassidy MD 11/10/2016 Nurse visit Yvonne Cassidy MD 11/02/2016 Nurse visit Donte Hastings LABORER BEAM HOUSE 10/28/2016 Nurse visit Yvonne Cassidy MD 10/06/2016 [...] Cassidy MD 07/14/2016 Nurse visit Donte Hastings LABORER BEAM [employer]SE 07/06/2016 Nurse visit Yvonne Cassidy MD 06/29/2016 Nurse visit Yvonne Cassidy MD 06/24/2016 Nurse visit Yvonne Cassidy MD 06/16/2016 Office visit Yvonne Cassidy MD 06/14/2016 [facility] Alexander Park MD 06/09/2016 Nurse visit Yvonne Cassidy MD 06/02/2016 Office visit 06/02/2016 Office visit Karolyn Millan LABORER BE[employer]SE 06/01/2016 Nurse visit Yvonne Cassidy MD 05/27/2016 Nurse visit Yvonne Cassidy MD 05/11/2016 Nurse visit Yvonne Cassidy MD 05/05/2016 Nurse visit Yvonne Cassidy MD 04/29/2016 Nurse visit Yvonne Cassidy MD 04/23/2016 Office visit Jessie Mock LAB[employer]ER BE[employer]SE 04/13/2016 Nurse visit Yvonne Cassidy MD 04/07/2016 Nurse visit Yvonne Cassidy MD 04/01/2016 Office visit Jessie Mock [employer]ER BE[employer]SE 03/26/2016 Nurse visit Yvonne Cassidy MD 03/17/2016 Nurse visit Yvonne Cassidy MD 03/11/2016 Nurse visit Yvonne Cassidy MD 03/04/2016 Office visit Jessie Mock [employer]ER [employer]SE 03/02/2016 Nurse visit Yvonne Cassidy MD 02/19/2016 Nurse visit Yvonne Cassidy MD 02/12/2016 Office visit Jessie Mock [employer]ER [employer]SE 02/03/2016 Nurse visit Yvonne Cassidy MD 01/27/2016 Nurse visit Yvonne Cassidy MD 01/15/2016 Nurse visit Yvonne Cassidy MD 01/08/2016 Office visit Jessie Mock [employer]SE 12/25/2015 Nurse visit Yvonne Cassidy MD 12/09/2015 Nurse visit Yvonne Cassidy MD 12/02/2015 Nurse visit Yvonne Cassidy MD 11/29/2015 Nurse visit Donte Hastings [employer] BE[employer]SE 11/28/2015 Nurse visit Jessie Mock [employer]SE 11/27/2015 Office visit Jessie Mock [employer]SE 11/25/2015 Office visit Donte Hastings [employer]SE 11/18/2015 Nurse visit Donte Hastings [employer] 11/11/2015 Nurse visit Jessie Mock [employer] 11/04/2015 Nurse visit Donte Hastings [employer]SE 10/29/2015 Office visit Jessie Mock [employer]SE 10/28/2015 Nurse visit Jessie Mock [employer]SE 10/21/2015 Nurse visit Glenn Tejeda MD 10/15/2015 Nurse visit Francisco J Jesus DO 10/09/2015 Nurse visit Glenn Tejeda MD 10/02/2015 Office visit April Atkinson [employer] 10/01/2015 Nurse visit Jessie Mock [employer] 09/11/2015 Nurse visit Yvonne Cassidy MD 09/05/2015 [...] Office visit 05/29/2015 Office visit Karolyn Millan [employer] 05/29/2015 Nurse visit Yvonne Cassidy MD 05/14/2015 Nurse visit Francisco J Edin ISSA 05/09/2015 Nurse visit Yvonne Cassidy MD 04/30/2015 Nurse visit Yvonne Cassidy MD 04/23/2015 Nurse visit Yvonne Cassidy MD 04/18/2015 Nurse visit Nidia Darby [employer]SE 04/09/2015 Nurse visit Yvonne Cassidy MD 04/01/2015 Nurse visit Yvonne Cassidy MD 03/27/[address] Cody Horvath MD 03/25/2015 [facility] Alexander Park MD 03/19/2015 Nurse visit Yvonne Cassidy MD 03/19/2015 Office visit Nidia Darby [employer]SE 03/04/2015 Nurse visit Yvonne Cassidy MD 02/25/2015 [...] Office visit 12/31/2014 Office visit Karolyn Millan [employer]SE 12/24/2014 Nurse visit Yvonne Cassidy MD 12/17/2014 Nurse visit Yvonne Cassidy MD 12/13/2014 Nurse visit Yvonne Cassidy MD 11/28/2014 Nurse visit Yvonne Cassidy MD 11/19/2014 Nurse visit Yvonne Cassidy MD 11/12/2014 Nurse visit Yvonne Cassidy MD 11/05/2014 Nurse visit Yvonne Cassidy MD 11/05/2014 [facility] Darin Park MD 10/29/2014 Nurse visit Yvonne Cassidy MD 10/24/2014 Nurse visit Yvonne Cassidy MD 10/15/2014 Nurse visit Yvonne Cassidy MD 10/11/2014 Office visit Karolyn Millan [employer] 10/09/2014 Nurse visit Yvonne Cassidy MD 10/04/2014 Nurse visit Yvonne Cassidy MD 09/19/2014 Surgery Karolyn Millan [employer] 09/13/2014 Office visit Yvonne Cassidy MD 09/06/2014 Nurse visit Yvonne Cassidy MD 08/28/2014 [facility] Chauncey Hogan MD 08/28/2014 [facility] Joe Thomas MD 08/23/2014 Nurse visit Yvonne Cassidy MD 08/22/2014 Surgery Joe Thomas MD 08/16/2014 Nurse visit Yvonne Cassidy MD 08/07/2014 Nurse visit Yvonne Cassidy MD 08/01/2014 Nurse visit Jessie Mock [employer] 07/25/2014 Nurse visit Nidia Darby [employer] 07/16/2014 Nurse visit Yvonne Cassidy MD 07/09/2014 [...] Cassidy MD 03/20/2014 Nurse visit Jessie Mock [employer] 03/13/2014 Nurse visit Donte Hastings [employer] 03/07/2014 Nurse visit Yvonne Cassidy MD 02/27/2014 Nurse visit Jessie Mock [employer] 02/20/2014 Nurse visit Donte Hastings [employer]SE 02/13/2014 Nurse visit Donte Hastings [employer]SE 02/13/2014 Procedures Joe Thomas MD 02/07/2014 Office visit Joe Thomas MD 02/06/2014 Nurse visit Yvonne Cassidy MD 01/17/2014 Nurse visit Nidia Darby [employer] 01/10/2014 Nurse visit Yvonne Cassidy MD 01/02/2014 Nurse visit Yvonne Cassidy MD 12/26/2013 Nurse visit Yvonne Cassidy MD 12/18/2013 Nurse visit Yvonne Cassidy MD 12/12/2013 Nurse visit Yvonne Cassidy MD 12/05/2013 Nurse visit Yvonne Cassidy MD 11/28/2013 Nurse visit Yvonne Cassidy MD 11/21/2013 Nurse visit Yvonne Cassidy MD 11/14/2013 Nurse visit Yvonne Cassidy MD 11/07/2013 Nurse visit Nidia Darby [employer] 10/31/2013 Nurse visit Nidia Darby [employer] 10/25/2013 Nurse visit Nidia Darby [employer] 10/18/2013 Voided Nidia Darby [employer] 10/10/2013 Voided Yvonne Cassidy MD 10/03/2013 Nurse [...] Mart MD 04/18/2013 Nurse visit Nidia Darby [employer] 04/04/2013 Nurse visit Nidia Darby [employer] 03/28/2013 Nurse visit Nidia Darby [employer] 03/21/2013 Nurse visit Nidia Darby [employer] 03/13/2013 Nurse visit Nidia Darby [employer] 03/09/2013 Nurse visit Nidia Darby [employer] 03/02/2013 Nurse visit Niida Darby [employer] 02/21/2013 Nurse visit Nidia Darby [employer] 02/13/2013 Office visit Nidia Darby [employer] 02/06/2013 Nurse visit Bria Mart MD 01/31/2013 [...] Mart MD 10/04/2012 Nurse visit Nidia Darby [employer] 09/27/2012 Nurse visit Bria Mart MD 09/22/2012 [...] Mart MD 06/07/2012 Nurse visit Nidia Darby [employer] 06/07/2012 Voided Francisco J Jesus DO 06/01/2012 [...] Mart MD 09/08/2011 Office visit Jessie Mock [employer] 09/01/2011 Nurse visit Bria Mart MD 08/21/2011 [...] Bria Mart MD 06/03/2010 Office visit Bria Matr MD 05/26/2010 Office visit Bria Mart MD 11/07/2009 Office visit Bria Mart MD 05/29/2009 Office visit Marium GOLDEN
--- OUTSIDE RECORDS SUMMARY | 2017-05-06 16:25 | XMS REPORT ---
Author Author Yvonne Cassidy Organization [facility] Address [address] [place], [place] [address] Care Team Providers Care Stoker Erector Name Role Phone Yvonne Cassidy PCP Yovnne Cassidy PreferredProvider Allergies and Adverse Reactions Name [...] 08/21/2011 12:00 AM Depo-Medrol 40 mg [facility]#[id number] Reviewed 03/02/2016 12:00 AM IMMUNOTHERAPY INJECTIONS Reviewed [...] 11/27/2011 12:00 AM Depo-Medrol 40 mg [facility]#[id number] Reviewed 12/01/2011 12:00 AM IMMUNOTHERAPY INJECTIONS Reviewed [...] 12:00 AM Decadron, Per 1 Mg [facility]# [address]-75 Reviewed 02/13/2013 12:00 AM Depo-Medrol, Per 80 Mg [facility]#2448-0467-97 Reviewed 06/05/2013 12:00 AM MAMMOGRAM SCREENING Reviewed [...] CVX Influenza 06/02/2010 sanofi pasteur PMC Fluzone [id number] Intramuscular Left Deltoid 06/02/2010 02/25/2010 999 Influenza 05/09/2015 sanofi pasteur PMC Fluzone [id number] Intramuscular Left Deltoid 05/09/2015 02/22/2015 141 Pneumococcal 06/29/2016 [facility] Pre[facility] 13 [id number] Intramuscular Right Deltoid 06/29/2016 09/14/2012 133 Zostavax [...] to other allergen Feb 23 2017 4:13PM Payers Insurance Name Company Name Plan Name Plan Number Policy Number Policy Group Number Start Date [facility] [id number] June [facility] Self Insurance Fund *INVALID State Self Insurance [id number] N/A Comp [place] [id number] Wednesday, 2015 History of Encounters Visit Date [...] Cassidy MD 07/14/2016 Nurse visit Donte Hastings CLEANER AND TRIMMER 07/06/2016 Nurse visit Yvonne Cassidy MD 06/29/2016 Nurse visit Yvonne Cassidy MD 06/24/2016 Nurse visit Yvonne Cassidy MD 06/16/2016 Office visit Yvonne Cassidy MD 06/14/2016 [facility] Alexander Park MD 06/09/2016 Nurse visit Yvonne Cassidy MD 06/02/2016 Office visit 06/02/2016 Office visit Karolyn Millan CLEANER AND TRIMMER 06/01/2016 Nurse visit Yvonne Cassidy MD 05/27/2016 Nurse visit Yvonne Cassidy MD 05/11/2016 Nurse visit Yvonne Cassidy MD 05/05/2016 Nurse visit Yvonne Cassidy MD 04/29/2016 Nurse visit Yvonne Cassidy MD 04/23/2016 Office visit Jessie Mock CLEANER AND TRIMMER 04/13/2016 Nurse visit Yvonne Cassidy MD 04/07/2016 Nurse visit Yvonne Cassidy MD 04/01/2016 Office visit Jessie Mock CLEANER AND TRIMMER 03/26/2016 Nurse visit Yvonne Cassidy MD 03/17/2016 Nurse visit Yvonne Cassidy MD 03/11/2016 Nurse visit Yvonne Cassidy MD 03/04/2016 Office visit Jessie Mock CLEANER AND TRIMMER 03/02/2016 Nurse visit Yvonne Cassidy MD 02/19/2016 Nurse visit Yvonne Cassidy MD 02/12/2016 Office visit Jessie Mock CLEANER AND TRIMMER 02/03/2016 Nurse visit Yvonne Cassidy MD 01/27/2016 Nurse visit Yvonne Cassidy MD 01/15/2016 Nurse visit Yvonne Cassidy MD 01/08/2016 Office visit Jessie Mock CLEANER AND TRIMMER 12/25/2015 Nurse visit Yvonne Cassidy MD 12/09/2015 Nurse visit Yvonne Cassidy MD 12/02/2015 Nurse visit Yvonne Cassidy MD 11/29/2015 Nurse visit Donte Hastings CLEANER AND TRIMMER 11/28/2015 Nurse visit Jessie Mock CLEANER AND TRIMMER 11/27/2015 Office visit Jessie Mock CLEANER AND TRIMMER 11/25/2015 Office visit Donte Hastings CLEANER AND TRIMMER 11/18/2015 Nurse visit Donte Hastings CLEANER AND TRIMMER 11/11/2015 Nurse visit Jessie Mock CLEANER AND TRIMMER 11/04/2015 Nurse visit Donte Hastings CLEANER AND TRIMMER 10/29/2015 Office visit Jessie Mock CLEANER AND TRIMMER 10/28/2015 Nurse visit Jessie Mock CLEANER AND TRIMMER 10/21/2015 Nurse visit Glenn Tejeda MD 10/15/2015 Nurse visit Francisco J Jesus DO 10/09/2015 Nurse visit Glenn Tejeda MD 10/02/2015 Office visit April China CLEANER AND TRIMMER 10/01/2015 Nurse visit Jessie Mock CLEANER AND TRIMMER 09/11/2015 Nurse visit Yvonne Cassidy MD 09/05/2015 [...] Office visit 05/29/2015 Office visit Karolyn Millan CLEANER AND TRIMMER 05/29/2015 Nurse visit Yvonne Cassidy MD 05/14/2015 Nurse visit Francisco J Jesus DO 05/09/2015 Nurse visit Yvonne Cassidy MD 04/30/2015 Nurse visit Yvonne Cassidy MD 04/23/2015 Nurse visit Yvonne Cassidy MD 04/18/2015 Nurse visit Nidia Darby CLEANER AND TRIMMER 04/09/2015 Nurse visit Yvonne Cassidy MD 04/01/2015 Nurse visit Yvonne Cassidy MD 03/27/[address] Cody Horvath MD 03/25/2015 [facility] Alexander Park MD 03/19/2015 Nurse visit Yvonne Cassidy MD 03/19/2015 Office visit Nidia Darby CLEANER AND TRIMMER 03/04/2015 Nurse visit Yvonne Cassiyd MD 02/25/2015 Nurse visit Yvonne Cassidy MD [...] Office visit 12/31/2014 Office visit Karolyn Millan CLEANER AND TRIMMER 12/24/2014 Nurse visit Yvonne Cassidy MD 12/17/2014 Nurse visit Yvonne Cassidy MD 12/13/2014 Nurse visit Yvonne Cassidy MD 11/28/2014 Nurse visit Yvonne Cassidy MD 11/19/2014 Nurse visit Yvonne Cassidy MD 11/12/2014 Nurse visit Yvonne Cassidy MD 11/05/2014 Nurse visit Yvonne Cassidy MD 11/05/2014 [facility] Darin Park MD 10/29/2014 Nurse visit Yvonne Cassidy MD 10/24/2014 Nurse visit Yvonne Cassidy MD 10/15/2014 Nurse visit Yvonne Cassidy MD 10/11/2014 Office visit Karolyn Millan CLEANER AND TRIMMER 10/09/2014 Nurse visit Yvonne Cassidy MD 10/04/2014 Nurse visit Yvonne Cassidy MD 09/19/2014 Surgery Karolyn Millan CLEANER AND TRIMMER 09/13/2014 Office visit Yvonne Cassidy MD 09/06/2014 Nurse visit Yvonne Cassidy MD 08/28/2014 [facility] Chauncey Hogan MD 08/28/2014 [facility] Joe Thomas MD 08/23/2014 Nurse visit Yvonne Cassidy MD 08/22/2014 Surgery Joe Thomas MD 08/16/2014 Nurse visit Yvonne Cassidy MD 08/07/2014 Nurse visit Yvonne Cassidy MD 08/01/2014 Nurse visit Jessie Mock CLEANER AND TRIMMER 07/25/2014 Nurse visit Nidia Darby CLEANER AND TRIMMER 07/16/2014 Nurse visit Yvonne Cassidy MD 07/09/2014 [...] Cassidy MD 03/20/2014 Nurse visit Jessie Mock CLEANER AND TRIMMER 03/13/2014 Nurse visit Donte Hastings CLEANER AND TRIMMER 03/07/2014 Nurse visit Yvonne Cassidy MD 02/27/2014 Nurse visit Jessie Mock CLEANER AND TRIMMER 02/20/2014 Nurse visit Donte Hastings CLEANER AND TRIMMER 02/13/2014 Nurse visit Donte Hastings CLEANER AND TRIMMER 02/13/2014 Procedures Joe Thomas MD 02/07/2014 Office visit Joe Thomas MD 02/06/2014 Nurse visit Yvonne Cassidy MD 01/17/2014 Nurse visit Nidia Darby CLEANER AND TRIMMER 01/10/2014 Nurse visit Yvonne Cassidy MD 01/02/2014 Nurse visit Yvonne Cassidy MD 12/26/2013 Nurse visit Yvonne Cassidy MD 12/18/2013 Nurse visit Yvonne Cassidy MD 12/12/2013 Nurse visit Yvonne Cassidy MD 12/05/2013 Nurse visit Yvonne aCssidy MD 11/28/2013 Nurse visit Yvonne Cassidy MD 11/21/2013 Nurse visit Yvonne Cassidy MD 11/14/2013 Nurse visit Yvonne Cassidy MD 11/07/2013 Nurse visit Nidia Darby CLEANER AND TRIMMER 10/31/2013 Nurse visit Nidia Darby CLEANER AND TRIMMER 10/25/2013 Nurse visit Nidia Darby CLEANER AND TRIMMER 10/18/2013 Voided iNdia Darby CLEANER AND TRIMMER 10/10/2013 Voided Yvonne Cassidy MD 10/03/2013 Nurse [...] Mart MD 04/18/2013 Nurse visit Nidia Darby CLEANER AND TRIMMER 04/04/2013 Nurse visit Nidia Darby CLEANER AND TRIMMER 03/28/2013 Nurse visit Nidia Darby CLEANER AND TRIMMER 03/21/2013 Nurse visit Nidia Darby CLEANER AND TRIMMER 03/13/2013 Nurse visit Nidia Darby CLEANER AND TRIMMER 03/09/2013 Nurse visit Nidia Darby CLEANER AND TRIMMER 03/02/2013 Nurse visit Nidia Darby CLEANER AND TRIMMER 02/21/2013 Nurse visit Nidia Darby CLEANER AND TRIMMER 02/13/2013 Office visit Nidia Darby CLEANER AND TRIMMER 02/06/2013 Nurse visit Bria Mart MD 01/31/2013 [...] Mart MD 10/04/2012 Nurse visit Nidia Darby CLEANER AND TRIMMER 09/27/2012 Nurse visit Bria Mart MD 09/22/2012 [...] Mart MD 06/07/2012 Nurse visit Nidia Darby CLEANER AND TRIMMER 06/07/2012 Voided Francisco J Jesus DO 06/01/2012 [...] Mart MD 09/08/2011 Office visit Jessie Mock CLEANER AND TRIMMER 09/01/2011 Nurse visit Bria Mart MD 08/21/2011 [...]
--- OUTSIDE RECORDS SUMMARY | 2017-05-06 16:28 | XMS REPORT ---
Author Author Yvonne Cassidy [facility] Address [address] [place], [place] [address] Care Team Providers Care Leaf Tinner Name Role Phone Yvonne Cassidy PCP Allergies [...] 08/21/2011 12:00 AM Depo-Medrol [address] [facility]#[id number] Reviewed 03/02/2016 12:00 AM IMMUNOTHERAPY INJECTIONS Reviewed [...] 11/27/2011 12:00 AM Depo-Medrol [address] [facility]#[id number] Reviewed 12/01/2011 12:00 AM IMMUNOTHERAPY INJECTIONS Reviewed [...] 12:00 AM Decadron, Per [address] [facility]# [address]-91 Reviewed 02/13/2013 12:00 AM Depo-Medrol, Per [address] [facility]#6420-1183-05 Reviewed 06/05/2013 12:00 AM MAMMOGRAM SCREENING Returned [...] BILI 0.50 mg/dLCALCIUM 10.10 mg/dLeGFR >60 mL/min/1.73 [id number] 10.0 secsINR 1.0 PTT 28.20 secs 08/28/2014 [...] CVX Influenza 06/02/2010 sanofi pasteur PMC Fluzone [id number] Intramuscular Left Deltoid 06/02/2010 02/25/2010 999 Influenza 05/09/2015 sanofi pasteur PMC Fluzone [id number] Intramuscular Left Deltoid 05/09/2015 02/22/2015 141 History [...] to other allergen May 05 2016 3:56PM Payers Insurance Name Company Name Plan Name Plan Number Policy Number Policy Group Number Start Date BCBS [facility] [id number] June [facility] Self Insurance Fund *INVALID State Self Insurance [id number] N/A Comp [place] [id number] Wednesday, 2015 History of Encounters Visit Date Visit Type Provider 05/05/2016 Nurse visit Yvonne Cassidy MD 04/29/2016 Nurse visit Yvonne Cassidy MD 04/23/2016 Office visit Jessie Mock NET SOFTWARE ARCHITECT 04/13/2016 Nurse visit Yvonne Cassidy MD 04/07/2016 Nurse visit Yvonne Cassidy MD 04/01/2016 Office visit Jessie Mock NET SOFTWARE ARCHITECT 03/26/2016 Nurse visit Yvonne Cassidy MD 03/17/2016 Nurse visit Yvonne Cassidy MD 03/11/2016 Nurse visit Yvonne Cassidy MD 03/04/2016 Office visit Jessie Mock NET SOFTWARE ARCHITECT 03/02/2016 Nurse visit Yvonne Cassidy MD 02/19/2016 Nurse visit Yvonne Cassidy MD 02/12/2016 Office visit Jessie Mock NET SOFTWARE ARCHITECT 02/03/2016 Nurse visit Yvonne Cassidy MD 01/27/2016 Nurse visit Yvonne Cassidy MD 01/15/2016 Nurse visit Yvonne Cassidy MD 01/08/2016 Office visit Jessie Mock NET SOFTWARE ARCHITECT 12/25/2015 Nurse visit Yvonne Cassidy MD 12/09/2015 Nurse visit Yvonne Cassidy MD 12/02/2015 Nurse visit Yvonne Cassidy MD 11/29/2015 Nurse visit Donte Hastings APRN 11/28/2015 Nurse visit Jessie Mock APRN 11/27/2015 Office visit Jessie Mock NET SOFTWARE ARCHITECT 11/25/2015 Office visit Donte Darling NET SOFTWARE ARCHITECT 11/18/2015 Nurse visit Donte Darling NET SOFTWARE ARCHITECT 11/11/2015 Nurse visit Jessie Mock NET SOFTWARE ARCHITECT 11/04/2015 Nurse visit Donte Hastings NET SOFTWARE ARCHITECT 10/29/2015 Office visit Jessie Mock NET SOFTWARE ARCHITECT 10/28/2015 Nurse visit Jessie Mock NET SOFTWARE ARCHITECT 10/21/2015 Nurse visit Glenn Tejeda MD 10/15/2015 Nurse visit Francisco J Jesus DO 10/09/2015 Nurse visit Glenn Tejeda MD 10/02/2015 Office visit April Atkinson NET SOFTWARE ARCHITECT 10/01/2015 Nurse visit Jessie Nish NET SOFTWARE ARCHITECT 09/11/2015 Nurse visit Yvonne Cassidy MD 09/05/2015 [...] Office visit 05/29/2015 Office visit Karolyn Millan NET SOFTWARE ARCHITECT 05/29/2015 Nurse visit Yvonne Cassidy MD 05/14/2015 Nurse visit Francisco J Jesus DO 05/09/2015 Nurse visit Yvonne Cassidy MD 04/30/2015 Nurse visit Yvonne Cassidy MD 04/23/2015 Nurse visit Yvonne Cassidy MD 04/18/2015 Nurse visit Nidia Darby NET SOFTWARE ARCHITECT 04/09/2015 Nurse visit Yvonne Cassidy MD 04/01/2015 Nurse visit Yvonne Cassidy MD 03/27/[address] Cody Horvath MD 03/25/2015 [facility] Alexander Park MD 03/19/2015 Nurse visit Yvonne Cassidy MD 03/19/2015 Office visit Nidia Darby NET SOFTWARE ARCHITECT 03/04/2015 Nurse visit Yvonne Cassidy MD 02/25/2015 [...] Office visit 12/31/2014 Office visit Karolyn Millan NET SOFTWARE ARCHITECT 12/24/2014 Nurse visit Yvonne Cassidy MD 12/17/2014 [...] Cassidy MD 10/11/2014 Office visit Karolyn Millan NET SOFTWARE ARCHITECT 10/09/2014 Nurse visit Yvonne Cassidy MD 10/04/2014 Nurse visit Yvonne Cassidy MD 09/19/2014 Surgery Karolyn Millan NET SOFTWARE ARCHITECT 09/13/2014 Office visit Yvonne Cassidy MD 09/06/2014 Nurse visit Yvonne Cassidy MD 08/28/2014 [facility] Chauncey Hogan MD 08/28/2014 [facility] Joe Thomas MD 08/23/2014 Nurse visit Yvonne Cassidy MD 08/22/2014 Surgery Joe Thomas MD 08/16/2014 Nurse visit Yvonne Cassidy MD 08/07/2014 Nurse visit Yvonne Cassidy MD 08/01/2014 Nurse visit Jessie Mock NET SOFTWARE ARCHITECT 07/25/2014 Nurse visit Nidia Darby NET SOFTWARE ARCHITECT 07/16/2014 Nurse visit Yvonne Cassidy MD 07/09/2014 [...] Cassidy MD 03/20/2014 Nurse visit Jessie Mock NET SOFTWARE ARCHITECT 03/13/2014 Nurse visit Donte Hastings NET SOFTWARE ARCHITECT 03/07/2014 Nurse visit Yvonne Cassidy MD 02/27/2014 Nurse visit Jessie Mock NET SOFTWARE ARCHITECT 02/20/2014 Nurse visit Donte Hastings NET SOFTWARE ARCHITECT 02/13/2014 Nurse visit Donte Hastings NET SOFTWARE ARCHITECT 02/13/2014 Procedures Joe Thomas MD 02/07/2014 Office visit Joe Thomas MD 02/06/2014 Nurse visit Yvonne Cassidy MD 01/17/2014 Nurse visit Nidia Darby NET SOFTWARE ARCHITECT 01/10/2014 Nurse visit Yvonne Cassidy MD 01/02/2014 Nurse visit Yvonne Cassidy MD 12/26/2013 Nurse visit Yvonne Cassidy MD 12/18/2013 Nurse visit Yvonne Cassidy MD 12/12/2013 Nurse visit Yvonne Cassidy MD 12/05/2013 Nurse visit Yvonne Cassidy MD 11/28/2013 Nurse visit Yvonne Cassidy MD 11/21/2013 Nurse visit Yvonne Cassidy MD 11/14/2013 Nurse visit Yvonne Cassidy MD 11/07/2013 Nurse visit Nidia Darby NET SOFTWARE ARCHITECT 10/31/2013 Nurse visit Nidia Darby NET SOFTWARE ARCHITECT 10/25/2013 Nurse visit Nidia Darby NET SOFTWARE ARCHITECT 10/18/2013 Voided Nidia Darby NET SOFTWARE ARCHITECT 10/10/2013 Voided Yvonne Cassidy MD 10/03/2013 Nurse [...] Mart MD 04/18/2013 Nurse visit Nidia Darby NET SOFTWARE ARCHITECT 04/04/2013 Nurse visit Nidia Darby NET SOFTWARE ARCHITECT 03/28/2013 Nurse visit Nidia Darby NET SOFTWARE ARCHITECT 03/21/2013 Nurse visit Nidia Darby NET SOFTWARE ARCHITECT 03/13/2013 Nurse visit Nidia Darby NET SOFTWARE ARCHITECT 03/09/2013 Nurse visit Nidia Darby NET SOFTWARE ARCHITECT 03/02/2013 Nurse visit Nidia Darby NET SOFTWARE ARCHITECT 02/21/2013 Nurse visit Nidia aDrby NET SOFTWARE ARCHITECT 02/13/2013 Office visit Nidia Darby NET SOFTWARE ARCHITECT 02/06/2013 Nurse visit Bria Mart MD 01/31/2013 [...] Mart MD 10/04/2012 Nurse visit Nidia Darby NET SOFTWARE ARCHITECT 09/27/2012 Nurse visit Bria Mart MD 09/22/2012 [...] Mart MD 06/07/2012 Nurse visit Nidia Darby NET SOFTWARE ARCHITECT 06/07/2012 Voided Francisco J Jesus DO 06/01/2012 [...] visit Bria Mart MD 09/08/2011 Office visit Jessei Mock APRN 09/01/2011 Nurse visit Bria Mart [...] visit Bria Mart MD 03/25/2011 Nurse visit rBia Mart MD 02/25/2011 Office visit Bria Mart MD 12/30/2010 Office visit Bria Mart MD 11/12/2010 Office visit Bria Mart MD 06/03/2010 Office visit Bria Mart MD 05/26/2010 Office visit Bria Mart MD 11/07/2009 Office visit Bria Mart MD 05/29/2009 Office visit Marium GOLDEN
--- OUTSIDE RECORDS SUMMARY | 2017-05-06 16:30 | XMS REPORT ---
Author Author Karolyn Millan [facility] Address [address] [place], [place] [id number] Care Team Providers Care Credit Products Officer Name Role Phone Karolyn Millan PCP Unavailable Allergies and Adverse Reactions Name Reaction Notes Ceftin rash Erythromycin rash PENICILLINS rash Plan of Treatment Planned Activity Comments Planned Date Planned Time Plan/Goal IMMUNOTHERAPY INJECTIONS 04/18/2015 12:00 AM IMMUNOTHERAPY INJECTIONS 03/27/2015 12:00 AM MAMMOGRAM SCREENING 06/12/2015 12:00 AM CYTOPATH TBS C/V MANUAL 05/29/2015 12:00 AM ASSAY THYROID STIM HORMONE 05/29/2015 12:00 AM LIPID PANEL 05/29/2015 12:00 AM IMMUNOTHERAPY INJECTIONS 01/05/2012 12:00 AM [...] Reviewed 05/29/2015 12:00 AM IMMUNOTHERAPY INJECTIONS Reviewed 05/29/2015 12:00 AM MAMMOGRAM BOTH BREASTS Reviewed 05/29/2015 12:00 AM SPECIMEN HANDLING OFFICE-LAB Reviewed 04/15/2011 12:00 AM IMMUNOTHERAPY INJECTIONS Reviewed [...] Reviewed 08/21/2011 12:00 AM Depo-Medrol [address] [facility]#[id number] Reviewed 09/08/2011 12:00 AM IMMUNOTHERAPY INJECTIONS Reviewed [...] Reviewed 11/27/2011 12:00 AM Depo-Medrol [address] [facility]#[id number] Reviewed 12/01/2011 12:00 AM IMMUNOTHERAPY INJECTIONS Reviewed [...] 02/13/2013 12:00 AM Decadron, Per [address] [facility]# [id number] Reviewed 02/13/2013 12:00 AM Depo-Medrol, Per [address] [facility]#[id number] Reviewed 06/05/2013 12:00 AM MAMMOGRAM SCREENING Returned [...] BILI 0.50 mg/dLCALCIUM 10.10 mg/dLeGFR >60 mL/min/1.73 [id number] 10.0 secsINR 1.0 PTT 28.20 secs 08/28/2014 [...] CVX Influenza 06/02/2010 sanofi pasteur PMC Fluzone [id number] Intramuscular Left Deltoid 06/02/2010 02/25/2010 999 Influenza 05/09/2015 sanofi pasteur PMC Fluzone [id number] Intramuscular Left Deltoid 05/09/2015 02/22/2015 141 History [...] 4:09PM Vaginal Polyp May 29 2015 3:26PM Payers Insurance Name Company Name Plan Name Plan Number Policy Number Policy Group Number Start Date [facility] [id number] [place] Self [place] *INVALID State Self Insurance [id number] N /A History of Encounters Visit Date Visit Type Provider 05/29/2015 Office visit Karolyn Millan EARTH SCIENCE FACULTY MEMBER 05/29/2015 Nurse visit Yvonne Cassidy MD 05/14/2015 Nurse visit Francisco J Jesus DO 05/09/2015 Nurse visit Yvonne Cassidy MD 04/30/2015 Nurse visit Yvonne Cassidy MD 04/23/2015 Nurse visit Yvonne Cassidy MD 04/18/2015 Nurse visit Nidia Darby EARTH SCIENCE FACULTY MEMBER 04/09/2015 Nurse visit Yvonne Cassidy MD 04/01/2015 Nurse visit Yvonne Cassidy MD 03/27/[address] Cody Horvath MD 03/19/2015 Nurse visit Yvonne Cassidy MD 03/19/2015 Office visit Nidia Darby EARTH SCIENCE FACULTY MEMBER 03/04/2015 Nurse visit Yvonne aCssidy MD 02/25/2015 Nurse visit Yvonne Cassidy MD 02/18/2015 Nurse visit Yvonne Cassidy MD 02/11/2015 Nurse visit Yvonne Cassidy MD 02/04/2015 Nurse visit Yvonne Cassidy MD 01/28/2015 Nurse visit Yvonne Cassidy MD 01/21/2015 Nurse visit Yvonne Cassidy MD 01/15/2015 Nurse visit Yvonne Cassidy MD 01/07/2015 Nurse visit Yvonne Cassidy MD 12/31/2014 Nurse visit Yvonne Cassidy MD 12/31/2014 Office visit Karolyn Millan EARTH SCIENCE FACULTY MEMBER 12/24/2014 Nurse visit Yvonne Cassidy MD 12/17/2014 [...] Cassidy MD 10/11/2014 Office visit Karolyn Millan EARTH SCIENCE FACULTY MEMBER 10/09/2014 Nurse visit Yvonne Cassidy MD 10/04/2014 Nurse visit Yvonne Cassidy MD 09/19/2014 Surgery Karolyn Millan EARTH SCIENCE FACULTY MEMBER 09/13/2014 Office visit Yvonne Cassidy MD 09/06/2014 Nurse visit Yvonne Cassidy MD 08/28/2014 [facility] Chauncey Hogan MD 08/28/2014 [facility] Joe Thomas MD 08/23/2014 Nurse visit Yvonne Cassidy MD 08/22/2014 Surgery Joe Thomas MD 08/16/2014 Nurse visit Yvonne Cassidy MD 08/07/2014 Nurse visit Yvonne Cassidy MD 08/01/2014 Nurse visit Jessie Mock EARTH SCIENCE FACULTY MEMBER 07/25/2014 Nurse visit Nidia Darby EARTH SCIENCE FACULTY MEMBER 07/16/2014 Nurse visit Yvonne Cassidy MD 07/09/2014 [...] Cassidy MD 03/20/2014 Nurse visit Jessie Mock EARTH SCIENCE FACULTY MEMBER 03/13/2014 Nurse visit Donte Hastings EARTH SCIENCE FACULTY MEMBER 03/07/2014 Nurse visit Yvonne Cassidy MD 02/27/2014 Nurse visit Jessie Mock EARTH SCIENCE FACULTY MEMBER 02/20/2014 Nurse visit Donte Hastings EARTH SCIENCE FACULTY MEMBER 02/13/2014 Nurse visit Donte Hastings EARTH SCIENCE FACULTY MEMBER 02/13/2014 Procedures Joe Thomas MD 02/07/2014 Office visit Joe Thomas MD 02/06/2014 Nurse visit Yvonne Cassidy MD 01/17/2014 Nurse visit Nidia Darby EARTH SCIENCE FACULTY MEMBER 01/10/2014 Nurse visit Yvonne Cassidy MD 01/02/2014 Nurse visit Yvonne Cassidy MD 12/26/2013 Nurse visit Yvonne Cassidy MD 12/18/2013 Nurse visit Yvonne Cassidy MD 12/12/2013 Nurse visit Yvonne Cassidy MD 12/05/2013 Nurse visit Yvonne Cassidy MD 11/28/2013 Nurse visit Yvonne Cassidy MD 11/21/2013 Nurse visit Yvonne Cassidy MD 11/14/2013 Nurse visit Yvonne Cassidy MD 11/07/2013 Nurse visit Nidia Darby EARTH SCIENCE FACULTY MEMBER 10/31/2013 Nurse visit Nidia Darby EARTH SCIENCE FACULTY MEMBER 10/25/2013 Nurse visit Nidia Darby EARTH SCIENCE FACULTY MEMBER 10/18/2013 Voided Nidia Darby EARTH SCIENCE FACULTY MEMBER 10/10/2013 Voided Yvonne Cassidy MD 10/03/2013 Nurse [...] Mart MD 04/18/2013 Nurse visit Nidia Darby EARTH SCIENCE FACULTY MEMBER 04/04/2013 Nurse visit Nidia Darby EARTH SCIENCE FACULTY MEMBER 03/28/2013 Nurse visit Nidia Darby EARTH SCIENCE FACULTY MEMBER 03/21/2013 Nurse visit Nidia Darby EARTH SCIENCE FACULTY MEMBER 03/13/2013 Nurse visit Nidia Darby EARTH SCIENCE FACULTY MEMBER 03/09/2013 Nurse visit Nidia Darby EARTH SCIENCE FACULTY MEMBER 03/02/2013 Nurse visit Nidia Darby EARTH SCIENCE FACULTY MEMBER 02/21/2013 Nurse visit Nidia Darby EARTH SCIENCE FACULTY MEMBER 02/13/2013 Office visit Nidia Darby EARTH SCIENCE FACULTY MEMBER 02/06/2013 Nurse visit Bria Mart MD 01/31/2013 [...] Mart MD 10/04/2012 Nurse visit Nidia Darby EARTH SCIENCE FACULTY MEMBER 09/27/2012 Nurse visit Bria Mart MD 09/22/2012 [...] Mart MD 06/07/2012 Nurse visit Nidia Darby EARTH SCIENCE FACULTY MEMBER 06/07/2012 Voided Francisco J Jesus DO 06/01/2012 Office visit Bria Mrat MD 05/24/2012 [...] Mart MD 09/08/2011 Office visit Jessie Nish EARTH SCIENCE FACULTY MEMBER 09/01/2011 Nurse visit Bria Mart MD 08/21/2011 Office visit Bria Mart MD 08/12/2011 Nurse visit Bria Mart MD 08/06/2011 Office visit Bria Mart MD 07/28/2011 Nurse visit Bria Mart MD 07/21/2011 Office visit Bria Matr MD 07/16/2011 Nurse visit Bria Mart MD [...]
--- OUTSIDE RECORDS SUMMARY | 2017-05-06 16:32 | XMS REPORT ---
Author Author Yvonne Cassidy [facility] Address [address] [place], [place] [id number] Care Team Providers Care Dog Handler Name Role Phone Yvonne Cassidy PCP Allergies and Adverse Reactions Name Reaction Notes Ceftin rash Erythromycin rash PENICILLINS rash Plan of Treatment Planned Activity Comments Planned Date Planned Time Plan/Goal IMMUNOTHERAPY INJECTIONS 04/18/2015 12:00 AM IMMUNOTHERAPY INJECTIONS 03/27/2015 12:00 AM MAMMOGRAM SCREENING 06/12/2015 12:00 AM ASSAY THYROID STIM HORMONE 05/29/2015 12:00 AM LIPID PANEL 05/29/2015 12:00 AM IMMUNOTHERAPY INJECTIONS 06/10/2015 12:00 AM IMMUNOTHERAPY INJECTIONS 01/05/2012 12:00 AM [...] BY MOUTH EVERY DAY for 30 days Name Start Date Expiration [...] AM IMMUNOTHERAPY INJECTIONS Reviewed 05/29/2015 12:00 AM CYTOPATH TBS C/V MANUAL Returned 05/29/2015 12:00 AM MAMMOGRAM BOTH BREASTS Reviewed 05/29/2015 12:00 AM SPECIMEN HANDLING OFFICE-LAB Reviewed 06/04/2015 12:00 AM IMMUNOTHERAPY INJECTIONS Reviewed [...] 08/21/2011 12:00 AM Depo-Medrol 40 mg [facility]#[id number] Reviewed 09/08/2011 12:00 AM IMMUNOTHERAPY INJECTIONS Reviewed [...] 11/27/2011 12:00 AM Depo-Medrol 40 mg [facility]#[id number] Reviewed 12/01/2011 12:00 AM IMMUNOTHERAPY INJECTIONS Reviewed [...] 12:00 AM Decadron, Per 1 Mg [facility]# [id number] Reviewed 02/13/2013 12:00 AM Depo-Medrol, Per 80 Mg [facility]#[id number] Reviewed 06/05/2013 12:00 AM MAMMOGRAM SCREENING Returned [...] BILI 0.50 mg/dLCALCIUM 10.10 mg/dLeGFR >60 mL/min/1.73 [id number] 10.0 secsINR 1.0 PTT 28.20 secs 08/28/2014 [...] CVX Influenza 06/02/2010 sanofi pasteur PMC Fluzone [id number] Intramuscular Left Deltoid 06/02/2010 02/25/2010 999 Influenza 05/09/2015 sanofi pasteur PMC Fluzone [id number] Intramuscular Left Deltoid 05/09/2015 02/22/2015 141 History [...] to other allergen Jun 10 2015 4:18PM Payers Insurance Name Company Name Plan Name Plan Number Policy Number Policy Group Number Start Date [facility] [id number] [place] Self [place] *INVALID [place] Self Insurance [id number] N /A History of Encounters Visit Date Visit Type Provider 06/10/2015 Nurse visit Yvonne Cassidy MD 06/04/2015 Nurse visit Yvonne Cassidy MD 05/29/2015 Office visit Karolyn Millan DISH MACHINE OPERATOR 05/29/2015 Nurse visit Yvonne Cassidy MD 05/14/2015 Nurse visit Francisco J Jesus DO 05/09/2015 Nurse visit Yvonne Cassidy MD 04/30/2015 Nurse visit Yvonne Cassidy MD 04/23/2015 Nurse visit Yvonne Cassidy MD 04/18/2015 Nurse visit Nidia Darby DISH MACHINE OPERATOR 04/09/2015 Nurse visit Yvonne Cassidy MD 04/01/2015 Nurse visit Yvonne Cassidy MD 03/27/[address] Cody Horvath MD 03/25/2015 [facility] [place] MD 03/19/2015 Nurse visit Yvonne Cassidy MD 03/19/2015 Office visit Nidia Darby DISH MACHINE OPERATOR 03/04/2015 Nurse visit Yvonne Cassidy [...] Cassidy MD 12/31/2014 Office visit Karolyn Millan DISH MACHINE OPERATOR 12/24/2014 Nurse visit Yvonne Cassidy MD 12/17/2014 Nurse visit Yvonne Cassidy MD 12/13/2014 Nurse visit Yvonne Cassidy MD 11/28/2014 Nurse visit Yvonne Cassidy MD 11/19/2014 Nurse visit Yvonne Cassidy MD 11/12/2014 Nurse visit Yvonne Cassidy MD 11/05/2014 Nurse visit Yvonne Cassidy MD 11/05/2014 [facility] Darin Park MD 10/29/2014 Nurse visit Yvonne Cassidy MD 10/24/2014 Nurse visit Yvonne Cassidy MD 10/15/2014 Nurse visit Yvonne Cassidy MD 10/11/2014 Office visit Karolyn Millan DISH MACHINE OPERATOR 10/09/2014 Nurse visit Yvonne Cassidy MD 10/04/2014 Nurse visit Yvonne Cassidy MD 09/19/2014 Surgery Karolyn Millan DISH MACHINE OPERATOR 09/13/2014 Office visit Yvonne Cassidy MD 09/06/2014 Nurse visit Yvonne Cassidy MD 08/28/2014 [facility] Chauncey Hogan MD 08/28/2014 [facility] Joe Thomas MD 08/23/2014 Nurse visit Yvonne Cassidy MD 08/22/2014 Surgery Joe Thomas MD 08/16/2014 Nurse visit Yvonne Cassidy MD 08/07/2014 Nurse visit Yvonne Cassidy MD 08/01/2014 Nurse visit Jessie Mock DISH MACHINE OPERATOR 07/25/2014 Nurse visit Nidia Darby DISH MACHINE OPERATOR 07/16/2014 Nurse visit Yvonne Cassidy [...] Cassidy MD 03/20/2014 Nurse visit Jessie Mock DISH MACHINE OPERATOR 03/13/2014 Nurse visit Donte Hastings DISH MACHINE OPERATOR 03/07/2014 Nurse visit Yvonne Cassidy MD 02/27/2014 Nurse visit Jessie Mock DISH MACHINE OPERATOR 02/20/2014 Nurse visit Donte Hastings DISH MACHINE OPERATOR 02/13/2014 Nurse visit Donte Hastings DISH MACHINE OPERATOR 02/13/2014 Procedures Joe Thomas MD 02/07/2014 Office visit Joe Thomas MD 02/06/2014 Nurse visit Yvonne Cassidy MD 01/17/2014 Nurse visit Nidia Darby DISH MACHINE OPERATOR 01/10/2014 Nurse visit Yvonne Cassidy MD 01/02/2014 Nurse visit Yvonne Cassidy MD 12/26/2013 Nurse visit Yvonne Cassidy MD 12/18/2013 Nurse visit Yvonne Cassidy MD 12/12/2013 Nurse visit Yvonne Cassidy MD 12/05/2013 Nurse visit Yvonne Cassidy MD 11/28/2013 Nurse visit Yvonne Cassidy MD 11/21/2013 Nurse visit Yvonne Cassidy MD 11/14/2013 Nurse visit Yvonne Cassidy MD 11/07/2013 Nurse visit Nidia Darby DISH MACHINE OPERATOR 10/31/2013 Nurse visit Nidia Darby DISH MACHINE OPERATOR 10/25/2013 Nurse visit Nidia Darby DISH MACHINE OPERATOR 10/18/2013 Voided Nidia Darby DISH MACHINE OPERATOR 10/10/2013 Voided Yvonne Cassidy MD [...] Mart MD 04/18/2013 Nurse visit Nidia Darby DISH MACHINE OPERATOR 04/04/2013 Nurse visit Nidia Darby DISH MACHINE OPERATOR 03/28/2013 Nurse visit Nidia Darby DISH MACHINE OPERATOR 03/21/2013 Nurse visit Nidia Darby DISH MACHINE OPERATOR 03/13/2013 Nurse visit Nidia Darby DISH MACHINE OPERATOR 03/09/2013 Nurse visit Nidia Darby DISH MACHINE OPERATOR 03/02/2013 Nurse visit Nidia Darby DISH MACHINE OPERATOR 02/21/2013 Nurse visit Nidia Darby DISH MACHINE OPERATOR 02/13/2013 Office visit Nidia Darby DISH MACHINE OPERATOR 02/06/2013 Nurse visit Bria Mart MD 01/31/2013 Nurse visit Bria Mart MD 01/24/2013 Nurse visit Bria Mart MD 01/17/2013 Nurse visit Bria Mart MD 01/10/2013 Nurse visit Bria Mart MD 01/02/2013 Nurse visit Bria Mart MD 12/20/2012 Nurse visit Bria Mart MD 12/14/2012 Nurse visit Bria Mart MD 12/06/2012 Nurse visit Bria Mrat MD 11/29/2012 Nurse visit Bria Mart MD 11/22/2012 Nurse visit Bria Mart MD 11/15/2012 Nurse visit Bria Mart MD 11/08/2012 Nurse visit Bria Mart MD 11/01/2012 Nurse visit Bria Mart MD 10/25/2012 Nurse visit Bria Mart MD 10/18/2012 Nurse visit Bria Mart MD 10/11/2012 Nurse visit Bria Mart MD 10/04/2012 Nurse visit Nidia Darby DISH MACHINE OPERATOR 09/27/2012 Nurse visit Bria aMrt MD 09/22/2012 Nurse visit Bria Mart MD [...] Mart MD 06/07/2012 Nurse visit Nidia Darby DISH MACHINE OPERATOR 06/07/2012 Voided Francisco J Jesus DO [...]
--- OUTSIDE RECORDS SUMMARY | 2017-05-06 16:35 | XMS REPORT ---
Author Author Yvonne Cassidy [facility] Address [address] [place], [place] [id number] Care Team Providers Care Angledozer Operator Name Role Phone Yvonne Cassidy PCP [...] BILI 0.50 mg/dLCALCIUM 10.10 mg/dLeGFR >60 mL/min/1.73 [id number] 10.0 secsINR 1.0 PTT 28.20 secs 08/28/2014 [...] CVX Influenza 06/02/2010 sanofi pasteur PMC Fluzone [id number] Intramuscular Left Deltoid 06/02/2010 02/25/2010 999 History [...] to other allergen Nov 12 2014 4:40PM Payers Insurance Name Company Name Plan Name Plan Number Policy Number Policy Group Number Start Date [facility] [id number] [place] Self Insurance [place] Self Insurance Fund [id number] N/A History of Encounters Visit Date Visit Type Provider 11/12/2014 Nurse visit Yvonne Cassidy MD 11/05/2014 Nurse visit Yvonne Cassidy MD 10/29/2014 Nurse visit Yvonen Cassidy MD 10/24/2014 Nurse visit Yvonne Cassidy MD 10/15/2014 Nurse visit Yvonne Cassidy MD 10/11/2014 Office visit Karolyn Millan COLLAR SEWER 10/09/2014 Nurse visit Yvonne Cassidy MD 10/04/2014 Nurse visit Yvonne Cassidy MD 09/19/2014 Surgery Karolyn Millan COLLAR SEWER 09/13/2014 Office visit Yvonne Cassidy MD 09/06/2014 Nurse visit Yvonne Cassidy MD 08/28/2014 [facility] Joe Thomas MD 08/28/2014 [facility] Chauncey Hogan MD 08/23/2014 Nurse visit Yvonne Cassidy MD 08/22/2014 Surgery Joe Thomas MD 08/16/2014 Nurse visit Yvonne Cassidy MD 08/07/2014 Nurse visit Yvonne Cassidy MD 08/01/2014 Nurse visit Jessie Mock COLLAR SEWER 07/25/2014 Nurse visit Nidia Darby COLLAR SEWER 07/16/2014 Nurse visit Yvonne Cassidy MD 07/09/2014 [...] Cassidy MD 03/20/2014 Nurse visit Jessie Mock COLLAR SEWER 03/13/2014 Nurse visit Donte Hastings COLLAR SEWER 03/07/2014 Nurse visit Yvonne Cassidy MD 02/27/2014 Nurse visit Jessie Mock COLLAR SEWER 02/20/2014 Nurse visit Donte Hastings COLLAR SEWER 02/13/2014 Procedures Joe Thomas MD 02/13/2014 Nurse visit Donte Hastings COLLAR SEWER 02/07/2014 Office visit Joe Thomas MD 02/06/2014 Nurse visit Yvonne Cassidy MD 01/17/2014 Nurse visit Nidia Darby COLLAR SEWER 01/10/2014 Nurse visit Yvonne Cassidy MD 01/02/2014 Nurse visit Yvonne Cassidy MD 12/26/2013 Nurse visit Yvonne Cassidy MD 12/18/2013 Nurse visit Yvonne Cassidy MD 12/12/2013 Nurse visit Yvonne Cassidy MD 12/05/2013 Nurse visit Yvonne Cassidy MD 11/28/2013 Nurse visit Yvonne Cassidy MD 11/21/2013 Nurse visit Yvonne Cassidy MD 11/14/2013 Nurse visit Yvonne Cassidy MD 11/07/2013 Nurse visit Nidia Darby COLLAR SEWER 10/31/2013 Nurse visit Nidia Darby COLLAR SEWER 10/25/2013 Nurse visit Nidia Darby COLLAR SEWER 10/18/2013 Voided Nidia Darby COLLAR SEWER 10/10/2013 Voided Yvonne Cassidy MD 10/03/2013 Nurse [...] Mart MD 04/18/2013 Nurse visit Nidia Darby COLLAR SEWER 04/04/2013 Nurse visit Nidia Darby COLLAR SEWER 03/28/2013 Nurse visit Nidia Darby COLLAR SEWER 03/21/2013 Nurse visit Nidia Darby COLLAR SEWER 03/13/2013 Nurse visit Nidia Darby COLLAR SEWER 03/09/2013 Nurse visit Nidia Darby COLLAR SEWER 03/02/2013 Nurse visit Nidia Darby COLLAR SEWER 02/21/2013 Nurse visit Nidia Darby COLLAR SEWER 02/13/2013 Office visit Nidia Darby COLLAR SEWER 02/06/2013 Nurse visit Bria Mart MD 01/31/2013 Nurse visit Bria Mart MD 01/24/2013 Nurse visit Bria Mart MD 01/17/2013 Nurse visit Bria Mart MD 01/10/2013 Nurse visit Bria Mart MD 01/02/2013 Nurse visit Bria Mart MD 12/20/2012 Nurse visit Brai Mart MD 12/14/2012 Nurse visit Bria Mart [...] Mart MD 10/04/2012 Nurse visit Nidia Darby COLLAR SEWER 09/27/2012 Nurse visit Bria Mart MD 09/22/2012 [...] Jesus DO 06/07/2012 Nurse visit Nidia Darby COLLAR SEWER 06/01/2012 Office visit Bria Mart MD 05/24/2012 [...] Mart MD 09/08/2011 Office visit Jessie Mock COLLAR SEWER 09/08/2011 Nurse visit Bria Mart MD 09/01/2011 [...]
--- OUTSIDE RECORDS SUMMARY | 2017-05-06 16:38 | XMS REPORT ---
Author Author Yvonen Cassidy Organization [facility] Address [address] [place], [place] [address] Care Team Providers Care Windmill Mechanic Name Role Phone Yvonne Cassidy PCP Yvonne [...] 40 mg [facility]#[id number] Reviewed 03/02/2016 12:00 AM IMMUNOTHERAPY INJECTIONS Reviewed [...] 40 mg [facility]#[id number] Reviewed 12/01/2011 12:00 AM IMMUNOTHERAPY INJECTIONS Reviewed [...] Mg [facility]# [address]-00 Reviewed 02/13/2013 12:00 AM Depo-Medrol, Per 80 Mg [facility]#5600-4943-34 Reviewed 06/05/2013 12:00 AM MAMMOGRAM SCREENING Reviewed [...] CVX Influenza 06/02/2010 sanofi pasteur PMC Fluzone [id number] Intramuscular Left Deltoid 06/02/2010 02/25/2010 999 Influenza 05/09/2015 sanofi pasteur PMC Fluzone [id number] Intramuscular Left Deltoid 05/09/2015 02/22/2015 141 Pneumococcal 06/29/2016 Keoej-Evlyic-Ittlklr-Praxis WAL Prevnar 13 [id number] Intramuscular Right Deltoid 06/29/2016 09/14/2012 133 Zostavax [...] to other allergen Mar 15 2017 3:52PM Payers Insurance Name Company Name Plan Name Plan Number Policy Number Policy Group Number [id number] June [facility] Self [facility] Fund *INVALID State Self Insurance [id number] N/A Comp [place] [id number] Wednesday, 2015 History of Encounters Visit Date [...] Office visit 06/02/2016 Office visit Karolyn Millan LPN PRIVATE [employer]UTY 06/01/2016 Nurse visit Yvonne Cassidy MD 05/27/2016 Nurse visit Yvonne Cassidy MD 05/11/2016 Nurse visit Yvonne Cassidy MD 05/05/2016 Nurse visit Yvonne Cassidy MD 04/29/2016 Nurse visit Yvonne Cassidy MD 04/23/2016 Office visit Jessie Mock LPN PRIVATE DUTY 04/13/2016 Nurse visit Yvonne Cassidy MD 04/07/2016 Nurse visit Yvonne Cassidy MD 04/01/2016 Office visit Jessie Mock LPN PRIVATE DUTY 03/26/2016 Nurse visit Yvonne Cassidy MD 03/17/2016 Nurse visit Yvonne Cassidy MD 03/11/2016 Nurse visit Yvonne Cassidy MD 03/04/2016 Office visit Jessie Mock LPN PRIVATE DUTY 03/02/2016 Nurse visit Yvonne Cassidy MD 02/19/2016 Nurse visit Yvonne Cassidy MD 02/12/2016 Office visit Jessie Mock LPN PRIVATE DUTY 02/03/2016 Nurse visit Yvonne Cassidy MD 01/27/2016 Nurse visit Yvonne Cassidy MD 01/15/2016 Nurse visit Yvonne Cassidy MD 01/08/2016 Office visit Jessie Mock LPN PRIVATE DUTY 12/25/2015 Nurse visit Yvonne Cassidy MD 12/09/2015 Nurse visit Yvonne Cassidy MD 12/02/2015 Nurse visit Yvonne Cassidy MD 11/29/2015 Nurse visit Donte Hastings LPN PRIVATE DUTY 11/28/2015 Nurse visit Jessie Mock LPN PRIVATE DUTY 11/27/2015 Office visit Jessie Mock LPN PRIVATE DUTY 11/25/2015 Office visit Donte Hastings LPN PRIVATE DUTY 11/18/2015 Nurse visit Donte Hastings LPN PRIVATE DUTY 11/11/2015 Nurse visit Jessie Mock LPN PRIVATE DUTY 11/04/2015 Nurse visit Donte Hastings LPN PRIVATE DUTY 10/29/2015 Office visit Jessie Mock LPN PRIVATE DUTY 10/28/2015 Nurse visit Jessie Mock LPN PRIVATE DUTY 10/21/2015 Nurse visit Glenn Tejeda MD 10/15/2015 Nurse visit Francisco J Jesus DO 10/09/2015 Nurse visit Glenn Tejeda MD 10/02/2015 Office visit April Atkinson LPN PRIVATE DUTY 10/01/2015 Nurse visit Jessie Mock LPN PRIVATE DUTY 09/11/2015 Nurse visit Yvonne Cassidy MD 09/05/2015 [...] Office visit 05/29/2015 Office visit Karolyn Millan LPN PRIVATE DUTY 05/29/2015 Nurse visit Yvonne Cassidy MD 05/14/2015 Nurse visit Francisco J Jesus DO 05/09/2015 Nurse visit Yvonne Cassidy MD 04/30/2015 Nurse visit Yvonne Cassidy MD 04/23/2015 Nurse visit Yvonne Cassidy MD 04/18/2015 Nurse visit Nidia Darby LPN PRIVATE DUTY 04/09/2015 Nurse visit Yvonne Cassidy MD 04/01/2015 Nurse visit Yvonne Cassidy MD 03/27/[address] Cody Horvath MD 03/25/2015 [facility] Alexander Park MD 03/19/2015 Nurse visit Yvonne Cassidy MD 03/19/2015 Office visit Nidia Darby LPN PRIVATE DUTY 03/04/2015 Nurse visit Yvonne Cassidy MD 02/25/2015 [...] Office visit 12/31/2014 Office visit Karolyn Millan LPN PRIVATE DUTY 12/24/2014 Nurse visit Yvonne Cassidy MD 12/17/2014 Nurse visit Yvonne Cassidy MD 12/13/2014 Nurse visit Yvonne Cassidy MD 11/28/2014 Nurse visit Yvonne Cassidy MD 11/19/2014 Nurse visit Yvonne Cassidy MD 11/12/2014 Nurse visit Yvonne Cassidy MD 11/05/2014 Nurse visit Yvonne Cassidy MD 11/05/2014 [facility] Darin Park MD 10/29/2014 Nurse visit vYonne Cassidy MD 10/24/2014 Nurse visit Yvonne Cassidy MD 10/15/2014 Nurse visit Yvonne Cassidy MD 10/11/2014 Office visit Karolyn Millan LPN PRIVATE DUTY 10/09/2014 Nurse visit Yvonne Cassidy MD 10/04/2014 Nurse visit Yvonne Cassidy MD 09/19/2014 Surgery Karolyn Millan LPN PRIVATE DUTY 09/13/2014 Office visit Yvonne Cassidy MD 09/06/2014 Nurse visit Yvonne Cassidy MD 08/28/2014 [facility] Chauncey Hogan MD 08/28/2014 [facility] Joe Thomas MD 08/23/2014 Nurse visit Yvonne Cassidy MD 08/22/2014 Surgery Joe Thomas MD 08/16/2014 Nurse visit Yvonne Cassidy MD 08/07/2014 Nurse visit Yvonne Cassidy MD 08/01/2014 Nurse visit Jessie Mock LPN PRIVATE DUTY 07/25/2014 Nurse visit Nidia Darby LPN PRIVATE DUTY 07/16/2014 Nurse visit Yvonne Cassidy MD 07/09/2014 [...] Cassidy MD 03/20/2014 Nurse visit Jessie Mock LPN PRIVATE DUTY 03/13/2014 Nurse visit Donte Hastings LPN PRIVATE DUTY 03/07/2014 Nurse visit Yvonne Cassidy MD 02/27/2014 Nurse visit Jessie Mock LPN PRIVATE DUTY 02/20/2014 Nurse visit Donte Hastings LPN PRIVATE DUTY 02/13/2014 Nurse visit Donte Hastings LPN PRIVATE DUTY 02/13/2014 Procedures Joe Thomas MD 02/07/2014 Office visit Joe Thomas MD 02/06/2014 Nurse visit Yvonne Cassidy MD 01/17/2014 Nurse visit Nidia Darby LPN PRIVATE DUTY 01/10/2014 Nurse visit Yvonne Cassidy MD 01/02/2014 Nurse visit Yvonne Cassidy MD 12/26/2013 Nurse visit Yvonne Cassidy MD 12/18/2013 Nurse visit Yvonne Cassidy MD 12/12/2013 Nurse visit Yvonne Cassidy MD 12/05/2013 Nurse visit Yvonne Cassidy MD 11/28/2013 Nurse visit Yvonne Cassidy MD 11/21/2013 Nurse visit Yvonne Cassidy MD 11/14/2013 Nurse visit Yvonne Cassidy MD 11/07/2013 Nurse visit Nidia Darby LPN PRIVATE DUTY 10/31/2013 Nurse visit Nidia Darby LPN PRIVATE DUTY 10/25/2013 Nurse visit Nidia Darby LPN PRIVATE DUTY 10/18/2013 Voided Nidia Darby LPN PRIVATE DUTY 10/10/2013 Voided Yvonne Cassidy MD 10/03/2013 Nurse [...] Mart MD 04/18/2013 Nurse visit Nidia Darby LPN PRIVATE DUTY 04/04/2013 Nurse visit Nidia Darby LPN PRIVATE DUTY 03/28/2013 Nurse visit Nidia Darby LPN PRIVATE DUTY 03/21/2013 Nurse visit Nidia Darby LPN PRIVATE DUTY 03/13/2013 Nurse visit Nidia Darby LPN PRIVATE DUTY 03/09/2013 Nurse visit Nidia Darby LPN PRIVATE DUTY 03/02/2013 Nurse visit Nidia Darby LPN PRIVATE DUTY 02/21/2013 Nurse visit Nidia Darby LPN PRIVATE DUTY 02/13/2013 Office visit Nidia Darby LPN PRIVATE DUTY 02/06/2013 Nurse visit Bria Mart MD 01/31/2013 [...] Mart MD 10/04/2012 Nurse visit Nidia Darby LPN PRIVATE DUTY 09/27/2012 Nurse visit Bria Mart MD 09/22/2012 [...] Mart MD 06/07/2012 Nurse visit Nidia Darby LPN PRIVATE DUTY 06/07/2012 Voided Francisco J Jesus DO 06/01/2012 [...] Mart MD 09/08/2011 Office visit Jessie Mock LPN PRIVATE DUTY 09/01/2011 Nurse visit Bria Mart MD 08/21/2011 [...]
--- OUTSIDE RECORDS SUMMARY | 2017-05-06 16:40 | XMS REPORT ---
Author Author Karolyn Millan [facility] Address [address] [place], [place] [address] Care Team Providers Care Finished Carpet Inspector Name Role Phone Karolyn Millan PCP Unavailable [...] Reviewed 08/21/2011 12:00 AM Depo-Medrol 40 mg [facility]#[id number] Reviewed 09/08/2011 12:00 AM IMMUNOTHERAPY INJECTIONS Reviewed [...] Reviewed 11/27/2011 12:00 AM Depo-Medrol 40 mg [facility]#[id number] Reviewed 12/01/2011 12:00 AM IMMUNOTHERAPY INJECTIONS Reviewed [...] Per 1 Mg [facility]# [address]-92 Reviewed 02/13/2013 12:00 AM Depo-Medrol, Per 80 Mg [facility]#3281-0464-38 Reviewed 06/05/2013 12:00 AM MAMMOGRAM SCREENING Returned [...] BILI 0.50 mg/dLCALCIUM 10.10 mg/dLeGFR >60 mL/min/1.73 [id number] 10.0 secsINR 1.0 PTT 28.20 secs 08/28/2014 [...] CVX Influenza 06/02/2010 sanofi pasteur PMC Fluzone [id number] Intramuscular Left Deltoid 06/02/2010 02/25/2010 999 Influenza 05/09/2015 sanofi pasteur PMC Fluzone [id number] Intramuscular Left Deltoid 05/09/2015 02/22/2015 141 History [...] for breast cancer May 29 2015 4:09PM Payers Insurance Name Company Name Plan Name Plan Number Policy Number Policy Group Number Start Date Bcbs Bcbs [facility] [id number] [place] Self [place] *INVALID State Self Insurance [id number] N /A History of Encounters Visit Date Visit Type Provider 05/29/2015 Office visit Karolyn Millan GENERAL FREIGHT AGENT 05/29/2015 Nurse visit Yvonne Cassidy MD 05/14/2015 Nurse visit Francisco J Jesus DO 05/09/2015 Nurse visit Yvonne Cassidy MD 04/30/2015 Nurse visit Yvonne Cassidy MD 04/23/2015 Nurse visit Yvonne Cassidy MD 04/18/2015 Nurse visit Nidia Darby GENERAL FREIGHT AGENT 04/09/2015 Nurse visit Yvonne Cassidy MD 04/01/2015 Nurse visit Yvonne Cassidy MD 03/27/[address] Cody Horvath MD 03/19/2015 Nurse visit Yvonne Cassidy MD 03/19/2015 Office visit Nidia Darby GENERAL FREIGHT AGENT 03/04/2015 Nurse visit Yvonne Cassidy MD 02/25/2015 [...] Cassidy MD 12/31/2014 Office visit Karolyn Millan GENERAL FREIGHT AGENT 12/24/2014 Nurse visit Yvonne Cassidy MD 12/17/2014 [...] Cassidy MD 10/11/2014 Office visit Karolyn Millan GENERAL FREIGHT AGENT 10/09/2014 Nurse visit Yvonne Cassidy MD 10/04/2014 Nurse visit Yvonne Cassidy MD 09/19/2014 Surgery Karolyn Millan GENERAL FREIGHT AGENT 09/13/2014 Office visit Yvonne Cassidy MD 09/06/2014 Nurse visit Yvonne Cassidy MD 08/28/2014 Hospital Chauncey Hogan MD 08/28/2014 [facility] Joe Thomas MD 08/23/2014 Nurse visit Yvonne Cassidy MD 08/22/2014 Surgery Joe Thomas MD 08/16/2014 Nurse visit Yvonne Cassidy MD 08/07/2014 Nurse visit Yvonne Cassidy MD 08/01/2014 Nurse visit Jessie Mock GENERAL FREIGHT AGENT 07/25/2014 Nurse visit Nidia Darby GENERAL FREIGHT AGENT 07/16/2014 Nurse visit Yvonne Cassidy MD 07/09/2014 [...] Cassidy MD 03/20/2014 Nurse visit Jessie Mock GENERAL FREIGHT AGENT 03/13/2014 Nurse visit Donte Hastings GENERAL FREIGHT AGENT 03/07/2014 Nurse visit Yvonne Cassidy MD 02/27/2014 Nurse visit Jessie Mock GENERAL FREIGHT AGENT 02/20/2014 Nurse visit Donte Hastings GENERAL FREIGHT AGENT 02/13/2014 Nurse visit Donte Hastings GENERAL FREIGHT AGENT 02/13/2014 Procedures Joe Thomas MD 02/07/2014 Office visit Joe Thomas MD 02/06/2014 Nurse visit Yvonne Cassidy MD 01/17/2014 Nurse visit Nidia Darby GENERAL FREIGHT AGENT 01/10/2014 Nurse visit Yvonne Cassidy MD 01/02/2014 Nurse visit Yvonne Cassidy MD 12/26/2013 Nurse visit Yvonne Cassidy MD 12/18/2013 Nurse visit Yvonne Cassidy MD 12/12/2013 Nurse visit Yvonne Cassidy MD 12/05/2013 Nurse visit Yvonne Cassidy MD 11/28/2013 Nurse visit Yvonne Cassidy MD 11/21/2013 Nurse visit Yvonne Cassidy MD 11/14/2013 Nurse visit Yvonne Cassidy MD 11/07/2013 Nurse visit Nidia Darby GENERAL FREIGHT AGENT 10/31/2013 Nurse visit Nidia Darby GENERAL FREIGHT AGENT 10/25/2013 Nurse visit Nidia Darby GENERAL FREIGHT AGENT 10/18/2013 Voided Nidia Darby GENERAL FREIGHT AGENT 10/10/2013 Voided Yvonne Cassidy MD 10/03/2013 Nurse [...] Mart MD 04/18/2013 Nurse visit Nidia Darby GENERAL FREIGHT AGENT 04/04/2013 Nurse visit Nidia Darby GENERAL FREIGHT AGENT 03/28/2013 Nurse visit Nidia Darby GENERAL FREIGHT AGENT 03/21/2013 Nurse visit Nidia Darby GENERAL FREIGHT AGENT 03/13/2013 Nurse visit Nidia Darby GENERAL FREIGHT AGENT 03/09/2013 Nurse visit Nidia Darby GENERAL FREIGHT AGENT 03/02/2013 Nurse visit Nidia Darby GENERAL FREIGHT AGENT 02/21/2013 Nurse visit Nidia Darby GENERAL FREIGHT AGENT 02/13/2013 Office visit Nidia Darby GENERAL FREIGHT AGENT 02/06/2013 Nurse visit Bria Mart MD 01/31/2013 Nurse visit Bria Mart MD 01/24/2013 Nurse visit Bria Mart MD 01/17/2013 Nurse visit Bria Mart MD 01/10/2013 Nurse visit Bria Mart MD 01/02/2013 Nurse visit Bria Mart MD 12/20/2012 Nurse visit Bria Mart MD 12/14/2012 Nurse visit Bria Mart MD 12/06/2012 Nurse visit Bria Mart MD 11/29/2012 Nurse visit Bria Mart MD 11/22/2012 Nurse visit Brai Mart MD 11/15/2012 Nurse visit Bria Mart MD 11/08/2012 Nurse visit Bria Mart MD 11/01/2012 Nurse visit Bria Mart MD 10/25/2012 Nurse visit Bria Mart MD 10/18/2012 Nurse visit Bria Mrat MD 10/11/2012 Nurse visit Bria Mart MD 10/04/2012 Nurse visit Nidia Darby GENERAL FREIGHT AGENT 09/27/2012 Nurse visit Bria Mart MD 09/22/2012 Nurse visit Bria Matr MD 09/12/2012 Nurse visit Bria Mart MD [...] Mart MD 06/07/2012 Nurse visit Nidia Darby GENERAL FREIGHT AGENT 06/07/2012 Voided Francisco J Jesus DO 06/01/2012 [...] Bria Mart MD 10/20/2011 Nurse visit Bria Mrat MD 10/13/2011 Nurse visit Bria Mart MD 10/06/2011 Nurse visit Bria Mart MD 10/01/2011 Nurse visit Bria Mart MD 09/24/2011 Nurse visit Bria Mart MD 09/17/2011 Nurse visit Bria Mart MD 09/08/2011 Nurse visit Bria Mart MD 09/08/2011 Office visit Jessie Mock GENERAL FREIGHT AGENT 09/01/2011 Nurse visit Bria Mart MD 08/21/2011 [...]
--- OUTSIDE RECORDS SUMMARY | 2017-05-06 16:43 | XMS REPORT ---
Author Author Jessie Mock [facility] Address [address] [place], [place] [address] Care Team Providers Care Slot Machine Mechanic Name Role Phone Jessie Mock PCP Unavailable [...] Active 12/31/2014 Vital Signs Date Time BP-Sys(mm[Hg] BP-Karian(mm[Hg]) HR(bpm) RR(rpm) Temp WT HT HC BMI BSA BMI Percentile O2 Sat(%) 10/29/2015 3:44:00 PM 122 mmHg 86 mmHg [...] Reviewed 11/04/2015 12:00 AM IMMUNOTHERAPY INJECTIONS Reviewed 07/07/2011 12:00 [...] 40 mg [facility]#[id number] Reviewed 09/08/2011 12:00 AM IMMUNOTHERAPY INJECTIONS Reviewed [...] 40 mg [facility]#[id number] Reviewed 12/01/2011 12:00 AM IMMUNOTHERAPY INJECTIONS Reviewed [...] Mg [facility]# [address]-92 Reviewed 02/13/2013 12:00 AM Depo-Medrol, Per 80 Mg [facility]#5030-2771-94 Reviewed 06/05/2013 12:00 AM MAMMOGRAM SCREENING Returned [...] BILI 0.50 mg/dLCALCIUM 10.10 mg/dLeGFR >60 mL/min/1.73 h3NSMPAFP 10.0 secsINR 1.0 PTT 28.20 secs 08/28/2014 [...] CVX Influenza 06/02/2010 sanofi pasteur PMC Fluzone [id number] Intramuscular Left Deltoid 06/02/2010 02/25/2010 999 Influenza 05/09/2015 sanofi pasteur PMC Fluzone [id number] Intramuscular Left Deltoid 05/09/2015 02/22/2015 141 History [...] to other allergen Nov 11 2015 4:34PM Payers Insurance Name Company Name Plan Name Plan Number Policy Number Policy Group Number Start Date BCBS [facility] [id number] June [facility] Self Insurance Fund *INVALID State Self Insurance [id number] N/A History of Encounters Visit Date Visit Type Provider 11/11/2015 Nurse visit Jessie Mock DERMATOLOGIST MANAGING PARTNER 11/04/2015 Nurse visit Donte Hastings DERMATOLOGIST MANAGING PARTNER 10/29/2015 Office visit Jessie Mock DERMATOLOGIST MANAGING PARTNER 10/28/2015 Nurse visit Jessie Mock DERMATOLOGIST MANAGING PARTNER 10/21/2015 Nurse visit Glenn Tejeda MD 10/15/2015 Nurse visit Francisco J Jesus DO 10/09/2015 Nurse visit Glenn Tejeda MD 10/02/2015 Office visit April Atkinson DERMATOLOGIST MANAGING PARTNER 10/01/2015 Nurse visit Jessie Mock DERMATOLOGIST MANAGING PARTNER 09/11/2015 Nurse visit Yvonne Cassidy MD 09/05/2015 [...] Office visit 05/29/2015 Office visit Karolyn Millan DERMATOLOGIST MANAGING PARTNER 05/29/2015 Nurse visit Yvonne Cassidy MD 05/14/2015 Nurse visit Francisco J Jesus DO 05/09/2015 Nurse visit Yvonne Cassidy MD 04/30/2015 Nurse visit Yvonne Cassidy MD 04/23/2015 Nurse visit Yvonne Cassidy MD 04/18/2015 Nurse visit Nidia Darby DERMATOLOGIST MANAGING PARTNER 04/09/2015 Nurse visit Yvonne Cassidy MD 04/01/2015 Nurse visit Yvonne Cassidy MD 03/27/[address] Cody Horvath MD 03/25/2015 [facility] Darin Park MD 03/19/2015 Nurse visit Yvonne Cassidy MD 03/19/2015 Office visit Nidia Darby DERMATOLOGIST MANAGING PARTNER 03/04/2015 Nurse visit Yvonne Cassidy MD 02/25/2015 [...] Office visit 12/31/2014 Office visit Karolyn Millan DERMATOLOGIST MANAGING PARTNER 12/24/2014 Nurse visit Yvonne Cassidy MD 12/17/2014 [...] Cassidy MD 10/11/2014 Office visit Karolyn Millan DERMATOLOGIST MANAGING PARTNER 10/09/2014 Nurse visit Yvonne Cassdiy MD 10/04/2014 Nurse visit Yvonne Cassidy MD 09/19/2014 Surgery Karolyn Millan DERMATOLOGIST MANAGING PARTNER 09/13/2014 Office visit Yvonne Cassidy MD 09/06/2014 Nurse visit Yvonne Cassidy MD 08/28/2014 [facility] Chauncey Hogan MD 08/28/2014 [facility] Joe Thomas MD 08/23/2014 Nurse visit Yvonne Cassidy MD 08/22/2014 Surgery Joe Thomas MD 08/16/2014 Nurse visit Yvonne Cassidy MD 08/07/2014 Nurse visit Yvonne Cassidy MD 08/01/2014 Nurse visit Jessie Mock DERMATOLOGIST MANAGING PARTNER 07/25/2014 Nurse visit Nidia Darby DERMATOLOGIST MANAGING PARTNER 07/16/2014 Nurse visit Yvonne Cassidy MD 07/09/2014 Nurse visit Yvonne Csasidy MD 07/03/2014 Nurse visit Yvonne Cassidy MD [...] Cassidy MD 03/20/2014 Nurse visit Jessie Mock DERMATOLOGIST MANAGING PARTNER 03/13/2014 Nurse visit Donte Hastings DERMATOLOGIST MANAGING PARTNER 03/07/2014 Nurse visit Yvonne Cassidy MD 02/27/2014 Nurse visit Jessie Mock DERMATOLOGIST MANAGING PARTNER 02/20/2014 Nurse visit Donte Hastings DERMATOLOGIST MANAGING PARTNER 02/13/2014 Nurse visit Donte Hastings DERMATOLOGIST MANAGING PARTNER 02/13/2014 Procedures Joe Thomas MD 02/07/2014 Office visit Joe Thomas MD 02/06/2014 Nurse visit Yvonne Cassidy MD 01/17/2014 Nurse visit Nidia Darby DERMATOLOGIST MANAGING PARTNER 01/10/2014 Nurse visit Yvonne Cassidy MD 01/02/2014 Nurse visit Yvonne Cassidy MD 12/26/2013 Nurse visit Yvonne Cassidy MD 12/18/2013 Nurse visit Yvonne Cassidy MD 12/12/2013 Nurse visit Yvonne Cassidy MD 12/05/2013 Nurse visit Yvonne Cassidy MD 11/28/2013 Nurse visit Yvonne Cassidy MD 11/21/2013 Nurse visit Yvonne Cassidy MD 11/14/2013 Nurse visit Yvonne Cassidy MD 11/07/2013 Nurse visit Nidia Darby DERMATOLOGIST MANAGING PARTNER 10/31/2013 Nurse visit Nidia Darby DERMATOLOGIST MANAGING PARTNER 10/25/2013 Nurse visit Nidia Darby DERMATOLOGIST MANAGING PARTNER 10/18/2013 Voided Nidia Darby DERMATOLOGIST MANAGING PARTNER 10/10/2013 Voided Yvonne Cassidy MD 10/03/2013 Nurse [...] Mart MD 04/18/2013 Nurse visit Nidia Darby DERMATOLOGIST MANAGING PARTNER 04/04/2013 Nurse visit Nidia Darby DERMATOLOGIST MANAGING PARTNER 03/28/2013 Nurse visit Nidia Darby DERMATOLOGIST MANAGING PARTNER 03/21/2013 Nurse visit Nidia Darby DERMATOLOGIST MANAGING PARTNER 03/13/2013 Nurse visit Nidia Daryb DERMATOLOGIST MANAGING PARTNER 03/09/2013 Nurse visit Nidia Darby DERMATOLOGIST MANAGING PARTNER 03/02/2013 Nurse visit Nidia Darby DERMATOLOGIST MANAGING PARTNER 02/21/2013 Nurse visit Nidia Darby DERMATOLOGIST MANAGING PARTNER 02/13/2013 Office visit Nidia Swartz Wilner DERMATOLOGIST MANAGING PARTNER 02/06/2013 Nurse visit Bria Mart MD 01/31/2013 [...] MD 10/04/2012 Nurse visit Nidia Sheridan Darby DERMATOLOGIST MANAGING PARTNER 09/27/2012 Nurse visit Bria Mart MD 09/22/2012 [...] MD 06/07/2012 Nurse visit Nidia GonzalesZafar Darby DERMATOLOGIST MANAGING PARTNER 06/07/2012 Voided Francisco J Jesus 06/01/2012 Office [...] Mart MD 09/08/2011 Office visit Jessie Nish GLYNN 09/01/2011 Nurse visit Bria Mart MD 08/21/2011 [...]
--- OUTSIDE RECORDS SUMMARY | 2017-05-06 16:44 | XMS REPORT | CCD ---
Author Author LINDA PYLE Organization Unknown Address [address] [place], [place] [address] Care Team Providers Care Lactation Specialist Name Role Phone SEYMOUR, JESI DO Attphys SEYMOURJEMALJESI DO Prisurg Vital Signs Unknown or Not Available. Allergies Allergy Code Allergy Type Reaction Status CEFTIN 204853 Drug allergy Active ERYTHROMYCIN 4053 Drug allergy Active Unknown Code - 0 0 Propensity to adverse reactions Active CEFUROXIME 2194 Drug allergy Active CODEINE 2670 Drug allergy Active PENICILLIN 77590 Drug allergy Active Procedures Procedure Code Procedure Type Date SHOULDER MINIMUM [address] 12/08/2014 History of Immunizations Immunization Code Date Influenza, seasonal, injectable 141 05/02/2014 Problems Problem Code Start Date Resolved Date Status Metrorrhagia 58639321 Active Results Unknown or Not Available. Active Medications Medication Code Dose Units Frequency Route Modification Start Date/Time Amlodipine 5MG Oral Tablet 009241 5 MILLIGRAMS DAILY ORAL 08/29/2014 11:14 buPROPion 300MG Oral Tablet, Extended Release, 24 HR 831538 300 MILLIGRAMS DAILY ORAL 08/29/2014 11:14 Meloxicam 15MG Oral Tablet 379104 15 MILLIGRAMS DAILY ORAL 08/29/2014 11:14 oxyCODONE HCl-acetaminophen 5MG-325MG Oral Tablet 7949219 1 EACH NEEDED ORAL 08/29/2014 11:14 ProAir HFA 0.09MG/1 INH Inhalation Aerosol Powder 71663733276 1 EACH NEEDED INHALATION 08/29/2014 11:14 Synthroid 0.175MG Oral Tablet 323746 0.175 MILLIGRAMS DAILY ORAL 08/29/2014 11:14 Triamcinolone Acetonide 55MCG/Actuation Nasal [place] 2598775 1 EACH DAILY NASAL 08/29/2014 11:14 Medications Administered During Visit Unknown or Not Available. Encounters Encounter Diagnosis Diagnosis Code Start Date SPRAIN NOS 8489 12/08/2014 Social History Smoking Status Code Start Date End Date Never smoker 093084003 Patient Decision Aids Unknown or Not Available. Discharge Instructions You were admitted to [facility] on 12/08/2014 with a principal diagnosis of SPRAIN NOS. You were discharged from [facility] on 12/08/2014. Should you have any questions prior to discharge, please contact a member of your healthcare team. If you have left the hospital and have any questions, please contact your primary care physician. Chief Complaint and Reason For Visit Chief Complaint Date of Onset LEFT ARM PAIN Function Status Unknown or Not Available. Referral/Transition of Care Unknown or Not Available.
[2017-05-06] MEDS ORDERED: ALPRAZolam 0.25 MG (XANAX) TAB PO ONE (16:45)
--- OUTSIDE RECORDS SUMMARY | 2017-05-06 16:47 | XMS REPORT ---
Author Author Yvonne Cassidy [facility] Address [address] [place], [place] [id number] Care Team Providers Care Boat Puller Name Role Phone Yvonne Cassidy PCP Allergies [...] mg [facility]#[id number] Reviewed 09/08/2011 12:00 AM IMMUNOTHERAPY INJECTIONS Reviewed [...] mg [facility]#[id number] Reviewed 12/01/2011 12:00 AM IMMUNOTHERAPY INJECTIONS Reviewed [...] [facility]# [address]-93 Reviewed 02/13/2013 12:00 AM Depo-Medrol, Per 80 Mg [facility]#[id number] Reviewed 06/05/2013 12:00 AM MAMMOGRAM SCREENING Returned [...] BILI 0.50 mg/dLCALCIUM 10.10 mg/dLeGFR >60 mL/min/1.73 [id number] 10.0 secsINR 1.0 PTT 28.20 secs 08/28/2014 [...] CVX Influenza 06/02/2010 sanofi pasteur PMC Fluzone [id number] Intramuscular Left Deltoid 06/02/2010 02/25/2010 999 Influenza 05/09/2015 sanofi pasteur PMC Fluzone [id number] Intramuscular Left Deltoid 05/09/2015 02/22/2015 141 History [...] to other allergen Jun 04 2015 3:48PM Payers Insurance Name Company Name Plan Name Plan Number Policy Number Policy Group Number Start Date [facility] [id number] [place] Self [place] *INVALID [place] Self Insurance [id number] N /A History of Encounters Visit Date Visit Type Provider 06/04/2015 Nurse visit Yvonne Cassidy MD 05/29/2015 Office visit Karolyn Millan LATHE OPERATOR CONTACT LENS 05/29/2015 Nurse visit Yvonne Cassidy MD 05/14/2015 Nurse visit Francisco J Jesus DO 05/09/2015 Nurse visit Yvonne Cassidy MD 04/30/2015 Nurse visit Yvonne Cassidy MD 04/23/2015 Nurse visit Yvonne Cassidy MD 04/18/2015 Nurse visit Nidia Darby LATHE OPERATOR CONTACT LENS 04/09/2015 Nurse visit Yvonne Cassidy MD 04/01/2015 Nurse visit Yvonne Cassidy MD 03/27/[address] Cody Horvath MD 03/25/2015 [facility] Alexander Park MD 03/19/2015 Nurse visit Yvonne Cassidy MD 03/19/2015 Office visit Nidia Darby LATHE OPERATOR CONTACT LENS 03/04/2015 Nurse visit Yvonne Cassidy MD 02/25/2015 [...] Cassidy MD 12/31/2014 Office visit Karolyn Millan LATHE OPERATOR CONTACT LENS 12/24/2014 Nurse visit Yvonne Cassidy MD 12/17/2014 [...] Cassidy MD 10/11/2014 Office visit Karolyn Millan LATHE OPERATOR CONTACT LENS 10/09/2014 Nurse visit Yvonne Cassidy MD 10/04/2014 Nurse visit Yvonne Cassidy MD 09/19/2014 Surgery Karolyn Millan LATHE OPERATOR CONTACT LENS 09/13/2014 Office visit Yvonne Cassidy MD 09/06/2014 Nurse visit Yvonne Cassidy MD 08/28/2014 [facility] Chauncey Hogan MD 08/28/2014 [facility] Joe Thomas MD 08/23/2014 Nurse visit Yvonne Cassidy MD 08/22/2014 Surgery Joe Thomas MD 08/16/2014 Nurse visit Yvonne Cassidy MD 08/07/2014 Nurse visit Yvonne Cassidy MD 08/01/2014 Nurse visit Jessie Mock LATHE OPERATOR CONTACT LENS 07/25/2014 Nurse visit Nidia Darby LATHE OPERATOR CONTACT LENS 07/16/2014 Nurse visit Yvonne Cassidy MD 07/09/2014 [...] Cassidy MD 03/20/2014 Nurse visit Jessie Mock LATHE OPERATOR CONTACT LENS 03/13/2014 Nurse visit Donte Hastings LATHE OPERATOR CONTACT LENS 03/07/2014 Nurse visit Yvonne Cassidy MD 02/27/2014 Nurse visit Jessie Mock LATHE OPERATOR CONTACT LENS 02/20/2014 Nurse visit Donte Hastings LATHE OPERATOR CONTACT LENS 02/13/2014 Nurse visit Donte Hastings LATHE OPERATOR CONTACT LENS 02/13/2014 Procedures Joe Thomas MD 02/07/2014 Office visit Joe Thomas MD 02/06/2014 Nurse visit Yvonne Cassidy MD 01/17/2014 Nurse visit Nidia Darby LATHE OPERATOR CONTACT LENS 01/10/2014 Nurse visit Yvonne Cassidy MD 01/02/2014 Nurse visit Yvonne Cassidy MD 12/26/2013 Nurse visit Yvonne Cassidy MD 12/18/2013 Nurse visit Yvonne Cassidy MD 12/12/2013 Nurse visit Yvonne Cassidy MD 12/05/2013 Nurse visit Yvonne Cassidy MD 11/28/2013 Nurse visit Yvonne Cassidy MD 11/21/2013 Nurse visit Yvonne Cassidy MD 11/14/2013 Nurse visit Yvonne Cassidy MD 11/07/2013 Nurse visit Nidia Darby LATHE OPERATOR CONTACT LENS 10/31/2013 Nurse visit Nidia Darby LATHE OPERATOR CONTACT LENS 10/25/2013 Nurse visit Nidia Darby LATHE OPERATOR CONTACT LENS 10/18/2013 Voided Nidia Darby LATHE OPERATOR CONTACT LENS 10/10/2013 Voided Yvonne Cassidy MD 10/03/2013 Nurse [...] Mart MD 04/18/2013 Nurse visit Nidia Darby LATHE OPERATOR CONTACT LENS 04/04/2013 Nurse visit Nidia Darby LATHE OPERATOR CONTACT LENS 03/28/2013 Nurse visit Nidia Darby LATHE OPERATOR CONTACT LENS 03/21/2013 Nurse visit Nidia Darby LATHE OPERATOR CONTACT LENS 03/13/2013 Nurse visit Nidia Darby LATHE OPERATOR CONTACT LENS 03/09/2013 Nurse visit Nidia Darby LATHE OPERATOR CONTACT LENS 03/02/2013 Nurse visit Nidia Darby LATHE OPERATOR CONTACT LENS 02/21/2013 Nurse visit Nidia Darby LATHE OPERATOR CONTACT LENS 02/13/2013 Office visit Nidia Darby LATHE OPERATOR CONTACT LENS 02/06/2013 Nurse visit Bria Mart MD 01/31/2013 [...] Bria Mart MD 11/15/2012 Nurse visit Bria Matr MD 11/08/2012 Nurse visit Bria Mart MD 11/01/2012 Nurse visit Bria Mart MD 10/25/2012 Nurse visit Bria Mart MD 10/18/2012 Nurse visit Bria Mart MD 10/11/2012 Nurse visit Bria Mart MD 10/04/2012 Nurse visit Nidia Darby LATHE OPERATOR CONTACT LENS 09/27/2012 Nurse visit Bria Mart MD 09/22/2012 [...] Mart MD 06/07/2012 Nurse visit Nidia Darby LATHE OPERATOR CONTACT LENS 06/07/2012 Voided Francisco J Jesus DO 06/01/2012 [...] Mart MD 09/08/2011 Office visit Jessie Mock LATHE OPERATOR CONTACT LENS 09/01/2011 Nurse visit Bria Mart MD 08/21/2011 [...] visit Bria Mart MD 12/30/2010 Office visit Bira Mart MD 11/12/2010 Office visit Bria Mart MD 06/03/2010 Office visit Bria Mart MD 05/26/2010 Office visit Bria Mart MD 11/07/2009 Office visit Bria Mart MD 05/29/2009 Office visit Marium GOLDEN
--- OUTSIDE RECORDS SUMMARY | 2017-05-06 16:51 | XMS REPORT ---
Author Author Yvonne Cassidy Organization [facility] Address [address] [place], [place] [address] Care Team Providers Care Routing Clerk Name Role Phone Yvonne Cassidy PCP Yvonne [...] Reviewed 08/21/2011 12:00 AM Depo-Medrol 40 mg [facility]#[id number] Reviewed 03/02/2016 12:00 AM IMMUNOTHERAPY INJECTIONS Reviewed [...] Reviewed 11/27/2011 12:00 AM Depo-Medrol 40 mg [facility]#[id number] Reviewed 12/01/2011 12:00 AM IMMUNOTHERAPY INJECTIONS Reviewed [...] 02/13/2013 12:00 AM Decadron, Per 1 Mg [facility]# [address]-52 Reviewed 02/13/2013 12:00 AM Depo-Medrol, Per 80 Mg [facility]#[id number] Reviewed 06/05/2013 12:00 AM MAMMOGRAM SCREENING Reviewed [...] CVX Influenza 06/02/2010 sanofi pasteur PMC Fluzone [id number] Intramuscular Left Deltoid 06/02/2010 02/25/2010 999 Influenza 05/09/2015 sanofi pasteur PMC Fluzone [id number] Intramuscular Left Deltoid 05/09/2015 02/22/2015 141 Pneumococcal 06/29/2016 Jnaur-Qvafpz-Paomydt-Praxis [facility] Prevnar 13 [id number] Intramuscular Right Deltoid 06/29/2016 09/14/2012 133 Zostavax [...] to other allergen Jan 25 2017 3:43PM Payers Insurance Name Company Name Plan Name Plan Number Policy Number Policy Group Number Start Date BCBS [facility] [place] [id number] June [facility] Self Insurance Fund *INVALID [facility] Self Insurance [id number] N/A Comp [place] [id number] Wednesday, 2015 History of Encounters Visit Date Visit Type Provider 01/25/2017 Nurse visit Yvonne Cassidy MD 01/12/2017 [...] 06/16/2016 Office visit Yvonne Cassidy MD 06/14/2016 [facility] Alexander Park MD 06/09/2016 Nurse visit Yvonne Cassidy MD 06/02/2016 Office visit 06/02/2016 Office visit Karolyn Millan MANUFACTURING SCHEDULER 06/01/2016 Nurse visit Yvonne Cassidy MD 05/27/2016 Nurse visit Yvonne Cassidy MD 05/11/2016 Nurse visit Yvonne Cassidy MD 05/05/2016 Nurse visit Yvonne Cassidy MD 04/29/2016 Nurse visit Yvonne Cassidy MD 04/23/2016 Office visit Jessie Mock MANUFACTURING SCHEDULER 04/13/2016 Nurse visit Yvonne Cassidy MD 04/07/2016 Nurse visit Yvonne Cassidy MD 04/01/2016 Office visit Jessie Mock MANUFACTURING SCHEDULER 03/26/2016 Nurse visit Yvonne Cassidy MD 03/17/2016 Nurse visit Yvonne Cassidy MD 03/11/2016 Nurse visit Yvonne Cassidy MD 03/04/2016 Office visit Jessie Mock MANUFACTURING SCHEDULER 03/02/2016 Nurse visit Yvonne Cassidy MD 02/19/2016 Nurse visit Yvonne Cassidy MD 02/12/2016 Office visit Jessie Mock MANUFACTURING SCHEDULER 02/03/2016 Nurse visit Yvonne Cassidy MD 01/27/2016 Nurse visit Yvonne Cassidy MD 01/15/2016 Nurse visit Yvonne Cassidy MD 01/08/2016 Office visit Jessie Mock MANUFACTURING SCHEDULER 12/25/2015 Nurse visit Yvonne Cassidy MD 12/09/2015 Nurse visit Yvonne Cassidy MD 12/02/2015 Nurse visit Yvonne Cassidy MD 11/29/2015 Nurse visit Donte Hastings MANUFACTURING SCHEDULER 11/28/2015 Nurse visit Jessie Nish MANUFACTURING SCHEDULER 11/27/2015 Office visit Jessie Mock MANUFACTURING SCHEDULER 11/25/2015 Office visit Donte Hastings MANUFACTURING SCHEDULER 11/18/2015 Nurse visit Donte Hastings MANUFACTURING SCHEDULER 11/11/2015 Nurse visit Jessie Nish MANUFACTURING SCHEDULER 11/04/2015 Nurse visit Donte Hastings MANUFACTURING SCHEDULER 10/29/2015 Office visit Jessie Nish MANUFACTURING SCHEDULER 10/28/2015 Nurse visit Jessie Nish MANUFACTURING SCHEDULER 10/21/2015 Nurse visit Glenn Tejeda MD 10/15/2015 Nurse visit Francisco J Jesus DO 10/09/2015 Nurse visit Glenn Tejeda MD 10/02/2015 Office visit April Atkinson MANUFACTURING SCHEDULER 10/01/2015 Nurse visit Jessie Mock MANUFACTURING SCHEDULER 09/11/2015 Nurse visit Yvonne Cassidy MD 09/05/2015 [...] Office visit 05/29/2015 Office visit Karolyn Millan MANUFACTURING SCHEDULER 05/29/2015 Nurse visit Yvonne Cassidy MD 05/14/2015 Nurse visit Francisco J Danielsonnola ISSA 05/09/2015 Nurse visit Yvonne Cassidy MD 04/30/2015 Nurse visit Yvonne Cassidy MD 04/23/2015 Nurse visit Yvonne Cassidy MD 04/18/2015 Nurse visit Nidia Darby MANUFACTURING SCHEDULER 04/09/2015 Nurse visit Yvonne Cassidy MD 04/01/2015 Nurse visit Yvonne Cassidy MD 03/27/[address] Cody Horvath MD 03/25/2015 [facility] Darin Park MD 03/19/2015 Nurse visit Yvonne Cassidy MD 03/19/2015 Office visit Nidia Darby MANUFACTURING SCHEDULER 03/04/2015 Nurse visit Yvonne Cassidy MD 02/25/2015 [...] Office visit 12/31/2014 Office visit Karolyn Millan MANUFACTURING SCHEDULER 12/24/2014 Nurse visit Yvonne Cassidy MD 12/17/2014 [...] Cassidy MD 10/11/2014 Office visit Karolyn Millan MANUFACTURING SCHEDULER 10/09/2014 Nurse visit Yvonne Cassidy MD 10/04/2014 Nurse visit Yvonne Cassidy MD 09/19/2014 Surgery Karolyn Millan MANUFACTURING SCHEDULER 09/13/2014 Office visit Yvonne Cassidy MD 09/06/2014 Nurse visit Yvonne Cassidy MD 08/28/2014 [facility] Chauncey Hogan MD 08/28/2014 [facility] Joe Thomas MD 08/23/2014 Nurse visit Yvonne Cassidy MD 08/22/2014 Surgery Joe Thomas MD 08/16/2014 Nurse visit Yvonne Cassidy MD 08/07/2014 Nurse visit Yvonne Cassidy MD 08/01/2014 Nurse visit Jessie Mock MANUFACTURING SCHEDULER 07/25/2014 Nurse visit Nidia Darby MANUFACTURING SCHEDULER 07/16/2014 Nurse visit Yvonne Cassidy MD 07/09/2014 [...] Cassidy MD 03/20/2014 Nurse visit Jessie Mock MANUFACTURING SCHEDULER 03/13/2014 Nurse visit Donte Hastings MANUFACTURING SCHEDULER 03/07/2014 Nurse visit Yvonne Cassidy MD 02/27/2014 Nurse visit Jessie Mock MANUFACTURING SCHEDULER 02/20/2014 Nurse visit Donte Hastings MANUFACTURING SCHEDULER 02/13/2014 Nurse visit Donte Hastings MANUFACTURING SCHEDULER 02/13/2014 Procedures Joe Thomas MD 02/07/2014 Office visit Joe Thomas MD 02/06/2014 Nurse visit Yvonne Cassidy MD 01/17/2014 Nurse visit Nidia Darby MANUFACTURING SCHEDULER 01/10/2014 Nurse visit Yvonne Cassidy MD 01/02/2014 Nurse visit Yvonne Cassidy MD 12/26/2013 Nurse visit Yvonne Cassidy MD 12/18/2013 Nurse visit Yvonne Cassidy MD 12/12/2013 Nurse visit Yvonne Cassidy MD 12/05/2013 Nurse visit Yvonne Cassidy MD 11/28/2013 Nurse visit Yvonne Cassidy MD 11/21/2013 Nurse visit Yvonne Cassidy MD 11/14/2013 Nurse visit Yvonne Cassidy MD 11/07/2013 Nurse visit Nidia Darby MANUFACTURING SCHEDULER 10/31/2013 Nurse visit Nidia Darby MANUFACTURING SCHEDULER 10/25/2013 Nurse visit Nidia Darby MANUFACTURING SCHEDULER 10/18/2013 Voided Nidia Darby MANUFACTURING SCHEDULER 10/10/2013 Voided Yvonne Cassidy MD 10/03/2013 Nurse [...] Mart MD 04/18/2013 Nurse visit Nidia Darby MANUFACTURING SCHEDULER 04/04/2013 Nurse visit Nidia Darby MANUFACTURING SCHEDULER 03/28/2013 Nurse visit Nidia Darby MANUFACTURING SCHEDULER 03/21/2013 Nurse visit Nidia Darby MANUFACTURING SCHEDULER 03/13/2013 Nurse visit Nidia Darby MANUFACTURING SCHEDULER 03/09/2013 Nurse visit Nidia Darby MANUFACTURING SCHEDULER 03/02/2013 Nurse visit Nidia Darby MANUFACTURING SCHEDULER 02/21/2013 Nurse visit Nidia Darby MANUFACTURING SCHEDULER 02/13/2013 Office visit Nidia GonzalesZafar Darby MANUFACTURING SCHEDULER 02/06/2013 Nurse visit Bria Mart MD 01/31/2013 [...] Mart MD 10/04/2012 Nurse visit Nidia Darby MANUFACTURING SCHEDULER 09/27/2012 Nurse visit Bria Mart MD 09/22/2012 [...] MD 06/07/2012 Nurse visit Nidia Sheridan Darby MANUFACTURING SCHEDULER 06/07/2012 Voided Francisco J Danielsonnola ISSA 06/01/2012 Office visit Bria Mart MD [...]
[2017-05-06 16:54] VITALS: BP 112/73
--- OUTSIDE RECORDS SUMMARY | 2017-05-06 16:55 | XMS REPORT ---
Author Author Yvonne Cassidy [facility] Address [address] [place], [place] [address] Care Team Providers Care Humanities Professor Name Role Phone Yvonne Cassidy PCP Allergies [...] 1 TABLET BY MOUTH EVERY DAY Zithromax Z-Jonsa 250 mg oral tablet 02/13/2013 02/18/2013 take [...] Reviewed 08/21/2011 12:00 AM Depo-Medrol 40 mg [facility]#[id number] Reviewed 09/08/2011 12:00 AM IMMUNOTHERAPY INJECTIONS Reviewed [...] Reviewed 11/27/2011 12:00 AM Depo-Medrol 40 mg [facility]#[id number] Reviewed 12/01/2011 12:00 AM IMMUNOTHERAPY INJECTIONS Reviewed [...] 02/13/2013 12:00 AM Decadron, Per 1 Mg [facility]# [address]-05 Reviewed 02/13/2013 12:00 AM Depo-Medrol, Per 80 Mg [facility]#[id number] Reviewed 06/05/2013 12:00 AM MAMMOGRAM SCREENING Returned [...] BILI 0.50 mg/dLCALCIUM 10.10 mg/dLeGFR >60 mL/min/1.73 [id number] 10.0 secsINR 1.0 PTT 28.20 secs 08/28/2014 [...] CVX Influenza 06/02/2010 sanofi pasteur PMC Fluzone [id number] Intramuscular Left Deltoid 06/02/2010 02/25/2010 999 Influenza 05/09/2015 sanofi pasteur PMC Fluzone [id number] Intramuscular Left Deltoid 05/09/2015 02/22/2015 141 History [...] to other allergen Jan 15 2016 3:59PM Payers Insurance Name Company Name Plan Name Plan Number Policy Number Policy Group Number Start Date BCBS [facility] [id number] June [facility] Self Insurance Fund *INVALID [place] Self Insurance [id number] N/A Comp [place] [id number] Wednesday, 2015 History of Encounters Visit Date Visit Type Provider 01/15/2016 Nurse visit Yvonne Cassidy MD 01/08/2016 Office visit Jessie Mock LADLE PULLER 12/25/2015 Nurse visit Yvonne Cassidy MD 12/09/2015 Nurse visit Yvonne Cassidy MD 12/02/2015 Nurse visit Yvonne Cassidy MD 11/29/2015 Nurse visit Donte Hastings LADLE PULLER 11/28/2015 Nurse visit Jessie Mock APRN 11/27/2015 Office visit Jessie Mock APRN 11/25/2015 Office visit Donte Hastings LADLE PULLER 11/18/2015 Nurse visit Donte Hastings LADLE PULLER 11/11/2015 Nurse visit Jessie Mock LADLE PULLER 11/04/2015 Nurse visit Donte Hastings LADLE PULLER 10/29/2015 Office visit Jessie Mock LADLE PULLER 10/28/2015 Nurse visit Jessie Mock LADLE PULLER 10/21/2015 Nurse visit Glenn Tejeda MD 10/15/2015 Nurse visit Francisco J Jesus DO 10/09/2015 Nurse visit Glenn Tejeda MD 10/02/2015 Office visit April Atkinson LADLE PULLER 10/01/2015 Nurse visit Jessie Mock LADLE PULLER 09/11/2015 Nurse visit Yvonne Cassidy MD [...] Office visit 05/29/2015 Office visit Karolyn Millan LADLE PULLER 05/29/2015 Nurse visit Yvonne Cassidy MD 05/14/2015 Nurse visit Francisco J Jesus DO 05/09/2015 Nurse visit Yvonne Cassidy MD 04/30/2015 Nurse visit Yvonne Cassidy MD 04/23/2015 Nurse visit Yvonne Cassidy MD 04/18/2015 Nurse visit Nidia Darby LADLE PULLER 04/09/2015 Nurse visit Yvonne Cassidy MD 04/01/2015 Nurse visit Yvonne Cassidy MD 03/27/[address] Cody Horvath MD 03/25/2015 [facility] Alexander Park MD 03/19/2015 Nurse visit Yvonne Cassidy MD 03/19/2015 Office visit Nidia Darby LADLE PULLER 03/04/2015 Nurse visit Yvonne Cassidy MD [...] Office visit 12/31/2014 Office visit Karolyn Millan LADLE PULLER 12/24/2014 Nurse visit Yvonne Cassidy MD 12/17/2014 Nurse visit Yvonne Cassidy MD 12/13/2014 Nurse visit Yvonne Cassidy MD 11/28/2014 Nurse visit Yvonne Cassidy MD 11/19/2014 Nurse visit Yvonne Cassidy MD 11/12/2014 Nurse visit Yvonne Cassidy MD 11/05/2014 Nurse visit Yvonne Cassidy MD 11/05/2014 [facility] Alexander Park MD 10/29/2014 Nurse visit Yvonne Cassidy MD 10/24/2014 Nurse visit Yvonne Cassidy MD 10/15/2014 Nurse visit Yvonne Cassidy MD 10/11/2014 Office visit Karolyn Millan LADLE PULLER 10/09/2014 Nurse visit Yvonne Cassidy MD 10/04/2014 Nurse visit Yvonne Cassidy MD 09/19/2014 Surgery Karolyn Millan LADLE PULLER 09/13/2014 Office visit Yvonne Cassidy MD 09/06/2014 Nurse visit Yvonne Cassidy MD 08/28/2014 [facility] Chauncey Hogan MD 08/28/2014 [facility] Joe Thomas MD 08/23/2014 Nurse visit Yvonne Cassidy MD 08/22/2014 Surgery Joe Thomas MD 08/16/2014 Nurse visit Yvonne Cassidy MD 08/07/2014 Nurse visit Yvonne Cassidy MD 08/01/2014 Nurse visit Jessie Mock LADLE PULLER 07/25/2014 Nurse visit Nidia Darby LADLE PULLER 07/16/2014 Nurse visit Yvonne Cassidy MD [...] Cassidy MD 03/20/2014 Nurse visit Jessie Mock LADLE PULLER 03/13/2014 Nurse visit Donte Hastings LADLE PULLER 03/07/2014 Nurse visit Yvonne Cassidy MD 02/27/2014 Nurse visit Jessie Mock LADLE PULLER 02/20/2014 Nurse visit Donte Hastings LADLE PULLER 02/13/2014 Nurse visit Donte Hastings LADLE PULLER 02/13/2014 Procedures Joe Thomas MD 02/07/2014 Office visit Joe Thomas MD 02/06/2014 Nurse visit Yvonne Cassidy MD 01/17/2014 Nurse visit Nidia Darby LADLE PULLER 01/10/2014 Nurse visit Yvonne Cassidy MD 01/02/2014 Nurse visit Yvonne Cassidy MD 12/26/2013 Nurse visit Yvonne Cassidy MD 12/18/2013 Nurse visit Yvonne Cassidy MD 12/12/2013 Nurse visit Yvonne Cassidy MD 12/05/2013 Nurse visit Yvonne Cassidy MD 11/28/2013 Nurse visit Yvonne Cassidy MD 11/21/2013 Nurse visit Yvonne Cassidy MD 11/14/2013 Nurse visit Yvonne Cassidy MD 11/07/2013 Nurse visit Nidia Darby LADLE PULLER 10/31/2013 Nurse visit Nidia Darby LADLE PULLER 10/25/2013 Nurse visit Nidia Darby LADLE PULLER 10/18/2013 Voided Nidia Darby LADLE PULLER 10/10/2013 Voided Yvonne Cassidy MD 10/03/2013 [...] Mart MD 04/18/2013 Nurse visit Nidia Darby LADLE PULLER 04/04/2013 Nurse visit Nidia Darby LADLE PULLER 03/28/2013 Nurse visit Nidia Darby LADLE PULLER 03/21/2013 Nurse visit Nidia Darby LADLE PULLER 03/13/2013 Nurse visit Nidia Darby LADLE PULLER 03/09/2013 Nurse visit Nidia Darby LADLE PULLER 03/02/2013 Nurse visit Nidia Darby LADLE PULLER 02/21/2013 Nurse visit Nidia Darby LADLE PULLER 02/13/2013 Office visit Nidia Darby LADLE PULLER 02/06/2013 Nurse visit Bria Mart MD [...] Mart MD 10/04/2012 Nurse visit Nidia Darby LADLE PULLER 09/27/2012 Nurse visit Bria Mart MD [...] Mart MD 06/07/2012 Nurse visit Nidia Darby LADLE PULLER 06/07/2012 Voided Francisco J Jesus DO 06/01/2012 [...] Mart MD 09/08/2011 Office visit Jessie Mock LADLE PULLER 09/01/2011 Nurse visit Bria Mart MD [...] visit Bria Mart MD 05/29/2009 Office visit Marimu GOLDEN
--- OUTSIDE RECORDS SUMMARY | 2017-05-06 17:00 | XMS REPORT ---
Author Author Yvonne Cassidy Organization [facility] Address [address] [place], [place] [id number] Care Team Providers Care Learning Support Teacher Name Role Phone Yvonne Cassidy PCP Yvonne [...] Thyroid stimulating hormone (TSH) 06/16/2016 12:00 AM PREVNAR 13 06/29/2016 12:00 AM Allergy Injection Multiple 01/05/2012 12:00 [...] MOUTH EVERY 4 TO 6 HOURS NEEDED Pen Needle 32 gauge x 5/32" miscellaneous needle 06/26/2016 07/26/2016 use as directed Name Start Date Expiration Date SIG Comments [...] a day as needed for 5 days Synthroid 150 mcg oral tablet 04/27/2016 06/26/2016 TAKE 1 TABLET BY MOUTH ONCE DAILY Discontinued Name Start Date Discontinued Date SIG [...] Reviewed 08/21/2011 12:00 AM Depo-Medrol 40 mg [facility]#[id number] Reviewed 03/02/2016 12:00 AM IMMUNOTHERAPY INJECTIONS Reviewed [...] Reviewed 06/16/2016 12:00 AM IMMUNOTHERAPY INJECTIONS Reviewed 06/24/2016 12:00 AM IMMUNOTHERAPY INJECTIONS Reviewed 10/29/2011 12:00 AM IMMUNOTHERAPY INJECTIONS Reviewed 11/03/2011 12:00 AM IMMUNOTHERAPY INJECTIONS Reviewed 11/10/2011 12:00 AM IMMUNOTHERAPY INJECTIONS Reviewed 11/17/2011 12:00 AM IMMUNOTHERAPY INJECTIONS Reviewed 11/27/2011 12:00 AM THER/PROPH/DIAG INJ SC/IM Reviewed 11/27/2011 12:00 AM Depo-Medrol 40 mg [facility]#[id number] Reviewed 12/01/2011 12:00 AM IMMUNOTHERAPY INJECTIONS Reviewed [...] 02/13/2013 12:00 AM Decadron, Per 1 Mg [facility]# [address]-75 Reviewed 02/13/2013 12:00 AM Depo-Medrol, Per 80 Mg [facility]#9309-7649-12 Reviewed 06/05/2013 12:00 AM MAMMOGRAM SCREENING Reviewed [...] AA 90 eGFR >60 mL/min/1.73meGFR AA* >60 History Of Immunizations Name Date Admin Mfg Name Mfg Code Trade Name Lot# Route Inj Vis Given Vis Pub CVX Influenza 06/02/2010 sanofi pasteur PMC Fluzone [id number] Intramuscular Left Deltoid 06/02/2010 02/25/2010 999 Influenza 05/09/2015 sanofi pasteur PMC Fluzone [id number] Intramuscular Left Deltoid 05/09/2015 02/22/2015 141 History [...] for pneumococcal vaccine Jun 29 2016 3:33PM Payers Insurance Name Company Name Plan Name Plan Number Policy Number Policy Group Number Start Date [facility] [id number] June [facility] Self Insurance Fund *INVALID State Self Insurance [id number] N/A Comp [place] Comp [place] [id number] Wednesday, 2015 History of Encounters Visit Date Visit Type Provider 06/29/2016 Nurse visit Yvonne Cassidy MD 06/24/2016 Nurse visit Yvonne Cassidy MD 06/16/2016 Office visit Yvonne Cassidy MD 06/09/2016 Nurse visit Yvonne Cassidy MD 06/02/2016 Office visit 06/02/2016 Office visit Karolyn Millan WINDOW CUTTER 06/01/2016 Nurse visit Yvonne Cassidy MD 05/27/2016 Nurse visit Yvonne Cassidy MD 05/11/2016 Nurse visit Yvonne Cassidy MD 05/05/2016 Nurse visit Yvonne Cassidy MD 04/29/2016 Nurse visit Yvonne Cassidy MD 04/23/2016 Office visit Jessie Mock WINDOW CUTTER 04/13/2016 Nurse visit Yvonne Cassidy MD 04/07/2016 Nurse visit Yvonne Cassidy MD 04/01/2016 Office visit Jessie Mock WINDOW CUTTER 03/26/2016 Nurse visit Yvonne Cassidy MD 03/17/2016 Nurse visit Yvonne Cassidy MD 03/11/2016 Nurse visit Yvonne Cassidy MD 03/04/2016 Office visit Jessie Mock WINDOW CUTTER 03/02/2016 Nurse visit Yvonne Cassidy MD 02/19/2016 Nurse visit Yvonne Cassidy MD 02/12/2016 Office visit Jessie Mock WINDOW CUTTER 02/03/2016 Nurse visit Yvonne Cassidy MD 01/27/2016 Nurse visit Yvonne Cassidy MD 01/15/2016 Nurse visit Yvonne Cassidy MD 01/08/2016 Office visit Jessie Mock WINDOW CUTTER 12/25/2015 Nurse visit Yvonne Cassidy MD 12/09/2015 Nurse visit Yvonne Cassidy MD 12/02/2015 Nurse visit Yvonne Cassidy MD 11/29/2015 Nurse visit Donte Hastings WINDOW CUTTER 11/28/2015 Nurse visit Jessie Mock WINDOW CUTTER 11/27/2015 Office visit Jessie Nish WINDOW CUTTER 11/25/2015 Office visit Donte Hastings WINDOW CUTTER 11/18/2015 Nurse visit Donte Gerberran WINDOW CUTTER 11/11/2015 Nurse visit Jessie Mock WINDOW CUTTER 11/04/2015 Nurse visit Donte Hastings WINDOW CUTTER 10/29/2015 Office visit Jessie Mock WINDOW CUTTER 10/28/2015 Nurse visit Jessie Nish WINDOW CUTTER 10/21/2015 Nurse visit Glenn Tejeda MD 10/15/2015 Nurse visit Francisco J Jesus DO 10/09/2015 Nurse visit Glenn Tejeda MD 10/02/2015 Office visit April Atkinson WINDOW CUTTER 10/01/2015 Nurse visit Jessie Mock WINDOW CUTTER 09/11/2015 Nurse visit Yvonne Cassidy MD 09/05/2015 [...] Office visit 05/29/2015 Office visit Karolyn Millan WINDOW CUTTER 05/29/2015 Nurse visit Yvonne Cassidy MD 05/14/2015 Nurse visit Francisco J Jesus DO 05/09/2015 Nurse visit Yvonne Cassidy MD 04/30/2015 Nurse visit Yvonne Cassidy MD 04/23/2015 Nurse visit Yvonne Cassidy MD 04/18/2015 Nurse visit Nidia Darby WINDOW CUTTER 04/09/2015 Nurse visit Yvonne Cassidy MD 04/01/2015 Nurse visit Yvonne Cassidy MD 03/27/[address] Cody Horvath MD 03/25/2015 [facility] Darin Park MD 03/19/2015 Nurse visit Yvonne Cassidy MD 03/19/2015 Office visit Nidia Darby WINDOW CUTTER 03/04/2015 Nurse visit Yvonne Cassidy MD 02/25/2015 [...] Office visit 12/31/2014 Office visit Karolyn Millan WINDOW CUTTER 12/24/2014 Nurse visit Yvonne Cassidy MD 12/17/2014 Nurse visit Yvonne Cassidy MD 12/13/2014 Nurse visit Yvonne Cassidy MD 11/28/2014 Nurse visit Yvonne Cassidy MD 11/19/2014 Nurse visit Yvonne Cassidy MD 11/12/2014 Nurse visit Yvonne Cassidy MD 11/05/2014 Nurse visit Yvonne Cassidy MD 11/05/2014 [facility] Darin Park MD 10/29/2014 Nurse visit Yvonne Cassidy MD 10/24/2014 Nurse visit Yvonne Cassidy MD 10/15/2014 Nurse visit Yvonne Cassidy MD 10/11/2014 Office visit Karolyn Millan WINDOW CUTTER 10/09/2014 Nurse visit Yvonne Cassidy MD 10/04/2014 Nurse visit Yvonne Cassidy MD 09/19/2014 Surgery Karolyn Millan WINDOW CUTTER 09/13/2014 Office visit Yvonne Cassidy MD 09/06/2014 Nurse visit Yvonne Cassidy MD 08/28/2014 [facility] Chauncey Hogan MD 08/28/2014 [facility] Joe Thomas MD 08/23/2014 Nurse visit Yvonne Cassidy MD 08/22/2014 Surgery Joe Thomas MD 08/16/2014 Nurse visit Yvonne Cassidy MD 08/07/2014 Nurse visit Yvonne Cassidy MD 08/01/2014 Nurse visit Jessie Mock WINDOW CUTTER 07/25/2014 Nurse visit Nidia Darby WINDOW CUTTER 07/16/2014 Nurse visit Yvonne Cassidy MD [...] Cassidy MD 03/20/2014 Nurse visit Jessie Mock WINDOW CUTTER 03/13/2014 Nurse visit Donte Hastings WINDOW CUTTER 03/07/2014 Nurse visit Yvonne Cassidy MD 02/27/2014 Nurse visit Jessie Mock WINDOW CUTTER 02/20/2014 Nurse visit Donte Hastings WINDOW CUTTER 02/13/2014 Nurse visit Donte Hastings WINDOW CUTTER 02/13/2014 Procedures Joe Thomas MD 02/07/2014 Office visit Joe Thomas MD 02/06/2014 Nurse visit Yvonne Cassidy MD 01/17/2014 Nurse visit Nidia Dabry WINDOW CUTTER 01/10/2014 Nurse visit Yvonne Cassidy MD 01/02/2014 Nurse visit Yvonne Cassidy MD 12/26/2013 Nurse visit Yvonne Cassidy MD 12/18/2013 Nurse visit Yvonne Cassidy MD 12/12/2013 Nurse visit Yvonne Cassidy MD 12/05/2013 Nurse visit Yvonne Cassidy MD 11/28/2013 Nurse visit Yvonne Cassidy MD 11/21/2013 Nurse visit Yvonne Cassidy MD 11/14/2013 Nurse visit Yvonne Cassidy MD 11/07/2013 Nurse visit Nidia Darby WINDOW CUTTER 10/31/2013 Nurse visit Nidia Darby WINDOW CUTTER 10/25/2013 Nurse visit Nidia Darby WINDOW CUTTER 10/18/2013 Voided Nidia Darby WINDOW CUTTER 10/10/2013 Voided Yvonne Cassidy MD 10/03/2013 [...] visit Bria Mart MD 05/01/2013 Nurse visit rBia Mart MD 04/18/2013 Nurse visit Nidia Darby WINDOW CUTTER 04/04/2013 Nurse visit Nidia Darby WINDOW CUTTER 03/28/2013 Nurse visit Nidia Darby WINDOW CUTTER 03/21/2013 Nurse visit Nidia Darby WINDOW CUTTER 03/13/2013 Nurse visit Nidia Darby WINDOW CUTTER 03/09/2013 Nurse visit Nidia Darby WINDOW CUTTER 03/02/2013 Nurse visit Nidia Darby WINDOW CUTTER 02/21/2013 Nurse visit Nidia Darby WINDOW CUTTER 02/13/2013 Office visit Nidia Darby WINDOW CUTTER 02/06/2013 Nurse visit Bria Mart MD [...] Mart MD 10/04/2012 Nurse visit Nidia Darby WINDOW CUTTER 09/27/2012 Nurse visit Bria Mart MD [...] Mart MD 06/07/2012 Nurse visit Nidia Darby WINDOW CUTTER 06/07/2012 Voided Francisco J Jesus DO 06/01/2012 [...] Mart MD 09/08/2011 Office visit Jessie Mock WINDOW CUTTER 09/01/2011 Nurse visit Bria Mart MD 08/21/2011 Office visit Bria Mart MD 08/12/2011 Nurse visit Bria Mart MD 08/06/2011 Office visit Bria Mart MD 07/28/2011 Nurse visit Bria Mart MD 07/21/2011 Office visit Bria Mart MD 07/16/2011 Nurse visit Bria Mart MD 07/06/2011 Nurse visit Bria Mart MD 06/17/2011 Nurse visit Brai Mart MD 06/09/2011 Nurse visit Bria Mart [...]
--- OUTSIDE RECORDS SUMMARY | 2017-05-06 17:04 | XMS REPORT ---
Author Author Yvonne Cassidy Organization [facility] Address [address] [place], [place] [id number] Care Team Providers Care Patient Care Provider Name Role Phone Yvonne Cassidy PCP Yvonne [...] Reviewed 08/21/2011 12:00 AM Depo-Medrol 40 mg [facility]#[id number] Reviewed 03/02/2016 12:00 AM IMMUNOTHERAPY INJECTIONS Reviewed [...] Reviewed 11/27/2011 12:00 AM Depo-Medrol 40 mg [facility]#[id number] Reviewed 12/01/2011 12:00 AM IMMUNOTHERAPY INJECTIONS Reviewed [...] 02/13/2013 12:00 AM Decadron, Per 1 Mg [facility]# [address]-41 Reviewed 02/13/2013 12:00 AM Depo-Medrol, Per 80 Mg [facility]#1392-5248-74 Reviewed 06/05/2013 12:00 AM MAMMOGRAM SCREENING Reviewed [...] CVX Influenza 06/02/2010 sanofi pasteur PMC Fluzone [id number] Intramuscular Left Deltoid 06/02/2010 02/25/2010 999 Influenza 05/09/2015 sanofi pasteur PMC Fluzone [id number] Intramuscular Left Deltoid 05/09/2015 02/22/2015 141 Pneumococcal 06/29/2016 [facility] Pre[facility] 13 [id number] Intramuscular Right Deltoid 06/29/2016 09/14/2012 133 History [...] to other allergen Jul 29 2016 2:23PM Payers Insurance Name Company Name Plan Name Plan Number Policy Number Policy Group Number Start Date BCBS [facility] [id number] June [facility] Self Insurance Fund *INVALID State Self Insurance [id number] N/A Comp [place] [id number] Wednesday, 2015 History of Encounters Visit Date Visit Type Provider 07/29/2016 Nurse visit Yvonne Cassidy MD 07/14/2016 Nurse visit Donte Hastings DOCK GRADER 07/06/2016 Nurse visit Yvonne Cassidy MD 06/29/2016 Nurse visit Yvonne Cassidy MD 06/24/2016 Nurse visit Yvonne Cassidy MD 06/16/2016 Office visit Yvonne Cassidy MD 06/09/2016 Nurse visit Yvonne Cassidy MD 06/02/2016 Office visit 06/02/2016 Office visit Karolyn Millan DOCK GRADER 06/01/2016 Nurse visit Yvonne Cassidy MD 05/27/2016 Nurse visit Yvonne Cassidy MD 05/11/2016 Nurse visit Yvonne Cassidy MD 05/05/2016 Nurse visit Yvonne Cassidy MD 04/29/2016 Nurse visit Yvonne Cassidy MD 04/23/2016 Office visit Jessie Mock DOCK GRADER 04/13/2016 Nurse visit Yvonne Cassidy MD 04/07/2016 Nurse visit Yvonne Cassidy MD 04/01/2016 Office visit Jessie Mock DOCK GRADER 03/26/2016 Nurse visit Yvonne Cassidy MD 03/17/2016 Nurse visit Yvonne Cassidy MD 03/11/2016 Nurse visit Yvonne Cassidy MD 03/04/2016 Office visit Jessie Mock DOCK GRADER 03/02/2016 Nurse visit Yvonne Cassidy MD 02/19/2016 Nurse visit Yvonne Cassidy MD 02/12/2016 Office visit Jessie Mock DOCK GRADER 02/03/2016 Nurse visit Yvonne Cassidy MD 01/27/2016 Nurse visit Yvonne Cassidy MD 01/15/2016 Nurse visit Yvonne Cassidy MD 01/08/2016 Office visit Jessie Mock DOCK GRADER 12/25/2015 Nurse visit Yvonne Cassidy MD 12/09/2015 Nurse visit Yvonne Cassidy MD 12/02/2015 Nurse visit Yvonne Cassidy MD 11/29/2015 Nurse visit Donte Hastings DOCK GRADER 11/28/2015 Nurse visit Jessie Mock DOCK GRADER 11/27/2015 Office visit Jessie Mock DOCK GRADER 11/25/2015 Office visit Donte Hastings DOCK GRADER 11/18/2015 Nurse visit Donte Hastings DOCK GRADER 11/11/2015 Nurse visit Jessie Mock DOCK GRADER 11/04/2015 Nurse visit Donte Hastings DOCK GRADER 10/29/2015 Office visit Jessie Mock DOCK GRADER 10/28/2015 Nurse visit Jessie Mock DOCK GRADER 10/21/2015 Nurse visit Glenn Tejeda MD 10/15/2015 Nurse visit Francisco J Jesus DO 10/09/2015 Nurse visit Glenn Tejeda MD 10/02/2015 Office visit April Atkinson DOCK GRADER 10/01/2015 Nurse visit Jessie Mock DOCK GRADER 09/11/2015 Nurse visit Yvonne Cassidy MD [...] Office visit 05/29/2015 Office visit Karolyn Millan DOCK GRADER 05/29/2015 Nurse visit Yvonne Cassidy MD 05/14/2015 Nurse visit Francisco J Jesus DO 05/09/2015 Nurse visit Yvonne Cassidy MD 04/30/2015 Nurse visit Yvonne Cassidy MD 04/23/2015 Nurse visit Yvonne Cassidy MD 04/18/2015 Nurse visit Nidia Darby DOCK GRADER 04/09/2015 Nurse visit Yvonne Cassidy MD 04/01/2015 Nurse visit Yvonne Cassidy MD 03/27/[address] Cody Horvath MD 03/25/2015 [facility] Alexander Park MD 03/19/2015 Nurse visit Yvonne Cassidy MD 03/19/2015 Office visit Nidia Darby DOCK GRADER 03/04/2015 Nurse visit Yvonne Cassidy MD [...] Office visit 12/31/2014 Office visit Karolyn Millan DOCK GRADER 12/24/2014 Nurse visit Yvonne Cassidy MD 12/17/2014 Nurse visit Yvonne Cassidy MD 12/13/2014 Nurse visit Yvonne Cassidy MD 11/28/2014 Nurse visit Yvonne Cassidy MD 11/19/2014 Nurse visit Yvonne Cassidy MD 11/12/2014 Nurse visit Yvonne Cassidy MD 11/05/2014 Nurse visit Yvonne Cassidy MD 11/05/2014 [facility] Alexander Park MD 10/29/2014 Nurse visit Yvonne Cassidy MD 10/24/2014 Nurse visit Yvonne Cassidy MD 10/15/2014 Nurse visit Yvonne Cassidy MD 10/11/2014 Office visit Karolyn Millan DOCK GRADER 10/09/2014 Nurse visit Yvonne Cassidy MD 10/04/2014 Nurse visit Yvonne Cassidy MD 09/19/2014 Surgery Karolyn Millan DOCK GRADER 09/13/2014 Office visit Yvonne Cassidy MD 09/06/2014 Nurse visit Yvonne Cassidy MD 08/28/2014 Hospital Chauncey Hogan MD 08/28/2014 [facility] Joe Thomas MD 08/23/2014 Nurse visit Yvonne Cassidy MD 08/22/2014 Surgery Joe Thomas MD 08/16/2014 Nurse visit Yvonne Cassidy MD 08/07/2014 Nurse visit Yvonne Cassidy MD 08/01/2014 Nurse visit Jessie Mock DOCK GRADER 07/25/2014 Nurse visit Nidia Darby DOCK GRADER 07/16/2014 Nurse visit Yvonne Cassidy MD [...] Cassidy MD 03/20/2014 Nurse visit Jessie Mock DOCK GRADER 03/13/2014 Nurse visit Donte Hastings DOCK GRADER 03/07/2014 Nurse visit Yvonne Cassidy MD 02/27/2014 Nurse visit Jessie Mock DOCK GRADER 02/20/2014 Nurse visit Donte Hastings DOCK GRADER 02/13/2014 Nurse visit Donte Hastings DOCK GRADER 02/13/2014 Procedures Joe Thomas MD 02/07/2014 Office visit Joe Thomas MD 02/06/2014 Nurse visit Yvonne Cassidy MD 01/17/2014 Nurse visit Nidia Darby DOCK GRADER 01/10/2014 Nurse visit Yvonne Cassidy MD 01/02/2014 Nurse visit Yvonne Cassidy MD 12/26/2013 Nurse visit Yvonne Cassidy MD 12/18/2013 Nurse visit Yvonne Cassidy MD 12/12/2013 Nurse visit Yvonne Cassidy MD 12/05/2013 Nurse visit Yvonne Cassidy MD 11/28/2013 Nurse visit Yvonne Cassidy MD 11/21/2013 Nurse visit Yvonne Cassidy MD 11/14/2013 Nurse visit Yvonne Cassidy MD 11/07/2013 Nurse visit Nidia Darby DOCK GRADER 10/31/2013 Nurse visit Nidia Darby DOCK GRADER 10/25/2013 Nurse visit Nidia Darby DOCK GRADER 10/18/2013 Voided Nidia Darby DOCK GRADER 10/10/2013 Voided Yvonne Cassidy MD 10/03/2013 Nurse visit Yvonne Cassidy MD 09/18/2013 Office visit Yvonne Casisdy MD 09/15/2013 Nurse visit Yvonne Cassidy MD [...] MD 04/18/2013 Nurse visit Nidia Sheridan Darby DOCK GRADER 04/04/2013 Nurse visit Nidia Darby DOCK GRADER 03/28/2013 Nurse visit Nidia Darby DOCK GRADER 03/21/2013 Nurse visit Nidia Darby DOCK GRADER 03/13/2013 Nurse visit Nidia Darby DOCK GRADER 03/09/2013 Nurse visit Nidia Darby DOCK GRADER 03/02/2013 Nurse visit Nidia Darby DOCK GRADER 02/21/2013 Nurse visit Nidia Darby DOCK GRADER 02/13/2013 Office visit Nidia Darby DOCK GRADER 02/06/2013 Nurse visit Bria Mart MD [...] Mart MD 10/04/2012 Nurse visit Nidia Darby DOCK GRADER 09/27/2012 Nurse visit Bria Mart MD [...] Sheridan Darby APRN 06/07/2012 Voided Francisco J Danielsonnola ISSA 06/01/2012 [...]
--- OUTSIDE RECORDS SUMMARY | 2017-05-06 17:09 | XMS REPORT ---
Author Author Yvonne Cassidy Organization [facility] Address [address] [place], [place] [address] Care Team Providers Care Belt Splicer Name Role Phone Yvonne Cassidy PCP Yvonne [...] Reviewed 08/21/2011 12:00 AM Depo-Medrol 40 mg [facility]#[id number] Reviewed 03/02/2016 12:00 AM IMMUNOTHERAPY INJECTIONS Reviewed [...] Reviewed 11/27/2011 12:00 AM Depo-Medrol 40 mg [facility]#[id number] Reviewed 12/01/2011 12:00 AM IMMUNOTHERAPY INJECTIONS Reviewed [...] Reviewed 03/24/2017 12:00 AM IMMUNOTHERAPY INJECTIONS Reviewed 04/21/2012 12:00 [...] 02/13/2013 12:00 AM Decadron, Per 1 Mg [facility]# [address]-01 Reviewed 02/13/2013 12:00 AM Depo-Medrol, Per 80 Mg [facility]#9308-9459-15 Reviewed 06/05/2013 12:00 AM MAMMOGRAM SCREENING Reviewed [...] CVX Influenza 06/02/2010 sanofi pasteur PMC Fluzone [id number] Intramuscular Left Deltoid 06/02/2010 02/25/2010 999 Influenza 05/09/2015 sanofi pasteur PMC Fluzone [id number] Intramuscular Left Deltoid 05/09/2015 02/22/2015 141 Pneumococcal 06/29/2016 Qxkbc-Cduqqk-Pirtkld-Prapatricios [facility] Prevnar 13 [id number] Intramuscular Right Deltoid 06/29/2016 09/14/2012 133 Zostavax [...] 2011 1:42PM Allergic rhinitis; due to pollen Sep 7 2011 11:46AM Allergic rhinitis; due to other [...] to other allergen Mar 24 2017 3:58PM Payers Insurance Name Company Name Plan Name Plan Number Policy Number Policy Group Number [facility] Date [id number] June [facility] Self Insurance Fund *INVALID State Self Insurance [id number] N/A Comp [place] [id number] Wednesday, 2015 History of Encounters Visit Date Visit Type Provider 03/24/2017 Nurse visit Yvonne Cassidy MD 03/15/2017 [...] visit Yvonne Cassidy MD 08/13/2016 Nurse visit Yvonen Cassidy MD 08/04/2016 Nurse visit Yvonne Cassidy MD 07/29/2016 Nurse visit Yvonne Cassidy MD 07/14/2016 Nurse visit Donte Hastings POT FEEDER 07/06/2016 Nurse visit Yvonne Cassidy MD 06/29/2016 Nurse visit Yvonne Cassidy MD 06/24/2016 Nurse visit Yvonne Cassidy MD 06/16/2016 Office visit Yvonne Cassidy MD 06/14/2016 [facility] Alexander Park MD 06/09/2016 Nurse visit Yvonne Cassidy MD 06/02/2016 Office visit 06/02/2016 Office visit Karolyn Millan POT FEEDER 06/01/2016 Nurse visit Yvonne Cassidy MD 05/27/2016 Nurse visit Yvonne Cassidy MD 05/11/2016 Nurse visit Yvonne Cassidy MD 05/05/2016 Nurse visit Yvonne Cassidy MD 04/29/2016 Nurse visit Yvonne Cassidy MD 04/23/2016 Office visit Jessie Mock POT FEEDER 04/13/2016 Nurse visit Yvonne Cassidy MD 04/07/2016 Nurse visit Yvonne Cassidy MD 04/01/2016 Office visit Jessie Mock POT FEEDER 03/26/2016 Nurse visit Yvonne Cassidy MD 03/17/2016 Nurse visit Yvonne Cassidy MD 03/11/2016 Nurse visit Yvonne Cassidy MD 03/04/2016 Office visit Jessie Mock POT FEEDER 03/02/2016 Nurse visit Yvonne Cassidy MD 02/19/2016 Nurse visit Yvonne Cassidy MD 02/12/2016 Office visit Jessie Mock POT FEEDER 02/03/2016 Nurse visit Yvonne Cassidy MD 01/27/2016 Nurse visit Yvonne Cassidy MD 01/15/2016 Nurse visit Yvonne Cassidy MD 01/08/2016 Office visit Jessie Mock POT FEEDER 12/25/2015 Nurse visit Yvonne Cassidy MD 12/09/2015 Nurse visit Yvonne Cassidy MD 12/02/2015 Nurse visit Yvonne Cassidy MD 11/29/2015 Nurse visit Donte Hastings POT FEEDER 11/28/2015 Nurse visit Jessie Mock POT FEEDER 11/27/2015 Office visit Jessie Mock POT FEEDER 11/25/2015 Office visit Donte Hastings POT FEEDER 11/18/2015 Nurse visit Donte Hastings POT FEEDER 11/11/2015 Nurse visit Jessie Mock POT FEEDER 11/04/2015 Nurse visit Donte Hastings POT FEEDER 10/29/2015 Office visit Jessie Mock POT FEEDER 10/28/2015 Nurse visit Jessie Mock POT FEEDER 10/21/2015 Nurse visit Glenn Tejeda MD 10/15/2015 Nurse visit Francisco J Jesus DO 10/09/2015 Nurse visit Glenn Tejeda MD 10/02/2015 Office visit April Atkinson POT FEEDER 10/01/2015 Nurse visit Jessie Mock POT FEEDER 09/11/2015 Nurse visit Yvonne Cassidy MD 09/05/2015 [...] Office visit 05/29/2015 Office visit Karolyn Millan POT FEEDER 05/29/2015 Nurse visit Yvonne Cassidy MD 05/14/2015 Nurse visit Francisco J Jesus DO 05/09/2015 Nurse visit Yvonne Cassidy MD 04/30/2015 Nurse visit Yvonne Cassidy MD 04/23/2015 Nurse visit Yvonne Cassidy MD 04/18/2015 Nurse visit Nidia Darby POT FEEDER 04/09/2015 Nurse visit Yvonne Cassidy MD 04/01/2015 Nurse visit Yvonne Cassidy MD 03/27/[address] Cody Horvath MD 03/25/2015 [facility] Alexander Park MD 03/19/2015 Nurse visit Yvonne Cassidy MD 03/19/2015 Office visit Nidia Darby POT FEEDER 03/04/2015 Nurse visit Yvonne Cassidy MD 02/25/2015 [...] Office visit 12/31/2014 Office visit Karolyn Millan POT FEEDER 12/24/2014 Nurse visit Yvonne Cassidy MD 12/17/2014 Nurse visit Yvonne Cassidy MD 12/13/2014 Nurse visit Yvonne Cassidy MD 11/28/2014 Nurse visit Yvonne Cassidy MD 11/19/2014 Nurse visit Yvonne Cassidy MD 11/12/2014 Nurse visit Yvonne Cassidy MD 11/05/2014 Nurse visit Yvonne Cassidy MD 11/05/2014 [facility] Darin Park MD 10/29/2014 Nurse visit Yvonne Cassidy MD 10/24/2014 Nurse visit Yvonne Cassidy MD 10/15/2014 Nurse visit Yvonne Cassidy MD 10/11/2014 Office visit Karolyn Millan POT FEEDER 10/09/2014 Nurse visit Yvonne Cassidy MD 10/04/2014 Nurse visit Yvonne Cassidy MD 09/19/2014 Surgery Karolyn Millan POT FEEDER 09/13/2014 Office visit Yvonne Casisdy MD 09/06/2014 Nurse visit Yvonne Cassidy MD 08/28/2014 [facility] Chauncey Hogan MD 08/28/2014 [facility] Joe Thomas MD 08/23/2014 Nurse visit Yvonne Cassidy MD 08/22/2014 Surgery Joe Thomas MD 08/16/2014 Nurse visit Yvonne Cassidy MD 08/07/2014 Nurse visit Yvonne Cassidy MD 08/01/2014 Nurse visit Jessie Mock POT FEEDER 07/25/2014 Nurse visit Nidia Darby POT FEEDER 07/16/2014 Nurse visit Yvonne Cassidy MD 07/09/2014 [...] Cassidy MD 03/20/2014 Nurse visit Jessie Mock POT FEEDER 03/13/2014 Nurse visit Donte Hastings POT FEEDER 03/07/2014 Nurse visit Yvonne Cassidy MD 02/27/2014 Nurse visit Jessie Mock POT FEEDER 02/20/2014 Nurse visit Donte Hastings POT FEEDER 02/13/2014 Nurse visit Donte Hastings POT FEEDER 02/13/2014 Procedures Joe Thomas MD 02/07/2014 Office visit Joe Thomas MD 02/06/2014 Nurse visit Yvonne Cassidy MD 01/17/2014 Nurse visit Nidia Darby POT FEEDER 01/10/2014 Nurse visit Yvonne Cassidy MD 01/02/2014 Nurse visit Yvonne Cassidy MD 12/26/2013 Nurse visit Yvonne Cassidy MD 12/18/2013 Nurse visit Yvonne Cassidy MD 12/12/2013 Nurse visit Yvonne Cassidy MD 12/05/2013 Nurse visit Yvonne Cassidy MD 11/28/2013 Nurse visit Yvonne Cassidy MD 11/21/2013 Nurse visit Yvonne Cassidy MD 11/14/2013 Nurse visit Yvonne Cassidy MD 11/07/2013 Nurse visit Nidia Darby POT FEEDER 10/31/2013 Nurse visit Nidia Darby POT FEEDER 10/25/2013 Nurse visit Nidia Darby POT FEEDER 10/18/2013 Voided Nidia Darby POT FEEDER 10/10/2013 Voided Yvonne Cassidy MD 10/03/2013 Nurse visit Yvonne Cassidy MD 09/18/2013 Office visit Yvonne Cassidy MD 09/15/2013 Nurse visit Yvonne Cassidy MD 09/08/2013 Office visit Joe Thomas MD 09/05/2013 Nurse visit Yvonne Cassidy MD 08/29/2013 Nurse visit Yvonne Cassidy MD 08/21/2013 Nurse visit Yvonne Cassidy MD 08/18/2013 Office visit Robinson Rodriguez PA-C 08/14/2013 Nurse visit Yvonne Csasidy MD 08/08/2013 Nurse visit Yvonne Cassidy MD [...] Mart MD 04/18/2013 Nurse visit Nidia Darby POT FEEDER 04/04/2013 Nurse visit Nidia Darby POT FEEDER 03/28/2013 Nurse visit Nidia Darby POT FEEDER 03/21/2013 Nurse visit Nidia Darby POT FEEDER 03/13/2013 Nurse visit Nidia Darby POT FEEDER 03/09/2013 Nurse visit Nidia Darby POT FEEDER 03/02/2013 Nurse visit Nidia Darby POT FEEDER 02/21/2013 Nurse visit Nidia Darby POT FEEDER 02/13/2013 Office visit Nidia Darby POT FEEDER 02/06/2013 Nurse visit Bria Mart MD 01/31/2013 [...] Mart MD 10/04/2012 Nurse visit Nidia Darby POT FEEDER 09/27/2012 Nurse visit Bria Mart MD 09/22/2012 [...] Mart MD 06/07/2012 Nurse visit Nidia Darby POT FEEDER 06/07/2012 Voided Francisco J Jesus DO 06/01/2012 [...] Mart MD 09/08/2011 Office visit Jessie Mock POT FEEDER 09/01/2011 Nurse visit Bria Mart MD 08/21/2011 [...]
--- OUTSIDE RECORDS SUMMARY | 2017-05-06 17:12 | XMS REPORT ---
Author Author Yvonne Cassidy [facility] Address [address] [place], [place] [id number] Care Team Providers Care Farm Appraiser Name Role Phone Yvonne Cassidy PCP Allergies and Adverse Reactions Name Reaction Notes Ceftin rash Erythromycin rash PENICILLINS rash Plan of Treatment Planned Activity Comments Planned Date Planned Time Plan/Goal IMMUNOTHERAPY INJECTIONS 01/05/2012 12:00 AM THER/PROPH/DIAG INJ [...] 08/21/2011 12:00 AM Depo-Medrol 40 mg [facility]#[id number] Reviewed 09/08/2011 12:00 AM IMMUNOTHERAPY INJECTIONS Reviewed [...] 11/27/2011 12:00 AM Depo-Medrol 40 mg [facility]#[id number] Reviewed 12/01/2011 12:00 AM IMMUNOTHERAPY INJECTIONS Reviewed [...] 12:00 AM Decadron, Per 1 Mg [facility]# [address]-63 Reviewed 02/13/2013 12:00 AM Depo-Medrol, Per 80 Mg [facility]#[id number] Reviewed 06/05/2013 12:00 AM MAMMOGRAM SCREENING Returned [...] BILI 0.50 mg/dLCALCIUM 10.10 mg/dLeGFR >60 mL/min/1.73 [id number] 10.0 secsINR 1.0 PTT 28.20 secs 08/28/2014 [...] CVX Influenza 06/02/2010 sanofi pasteur PMC Fluzone [id number] Intramuscular Left Deltoid 06/02/2010 02/25/2010 999 History [...] to other allergen Mar 19 2015 4:12PM Payers Insurance Name Company Name Plan Name Plan Number Policy Number Policy Group Number Start Date Bcbs [facility] [id number] [place] Self [place] *INVALID State Self Insurance [id number] N /A History of Encounters Visit Date Visit Type Provider 03/19/2015 Nurse visit Yvonne Cassidy MD 03/19/2015 Office visit Nidia Darby PRESS MANAGER 03/04/2015 Nurse visit Yvonne Cassidy MD [...] Cassidy MD 12/31/2014 Office visit Karolyn Millan PRESS MANAGER 12/24/2014 Nurse visit Yvonne Cassidy MD [...] Cassidy MD 10/11/2014 Office visit Karolyn Millan PRESS MANAGER 10/09/2014 Nurse visit Yvonne Cassidy MD 10/04/2014 Nurse visit Yvonne Cassidy MD 09/19/2014 Surgery Karolyn Millan PRESS MANAGER 09/13/2014 Office visit Yvonne Cassidy MD 09/06/2014 Nurse visit Yvonne Cassidy MD 08/28/2014 Hospital Chauncey Hogan MD 08/28/2014 Hospital Joe Thomas MD 08/23/2014 Nurse visit Yvonne Cassidy MD 08/22/2014 Surgery Joe Thomas MD 08/16/2014 Nurse visit Yvonne Cassidy MD 08/07/2014 Nurse visit Yvonne Cassidy MD 08/01/2014 Nurse visit Jessie Mock PRESS MANAGER 07/25/2014 Nurse visit Nidia Darby PRESS MANAGER 07/16/2014 Nurse visit Yvonne Cassidy MD [...] Cassidy MD 03/20/2014 Nurse visit Jessie Mock PRESS MANAGER 03/13/2014 Nurse visit Donte Hastings PRESS MANAGER 03/07/2014 Nurse visit Yvonne Cassidy MD 02/27/2014 Nurse visit Jessie Mock PRESS MANAGER 02/20/2014 Nurse visit Donte Hastings PRESS MANAGER 02/13/2014 Nurse visit Donte Hastings PRESS MANAGER 02/13/2014 Procedures Joe Thomas MD 02/07/2014 Office visit Joe Thomas MD 02/06/2014 Nurse visit Yvonne Cassidy MD 01/17/2014 Nurse visit Nidia Darby PRESS MANAGER 01/10/2014 Nurse visit Yvonne Cassidy MD 01/02/2014 Nurse visit Yvonne Cassidy MD 12/26/2013 Nurse visit Yvonne Cassidy MD 12/18/2013 Nurse visit Yvonne Casisdy MD 12/12/2013 Nurse visit Yvonne Cassidy MD 12/05/2013 Nurse visit Yvonne Cassidy MD 11/28/2013 Nurse visit Yvonne Cassidy MD 11/21/2013 Nurse visit Yvonne Cassidy MD 11/14/2013 Nurse visit Yvonne Cassidy MD 11/07/2013 Nurse visit Nidia Darby PRESS MANAGER 10/31/2013 Nurse visit Nidia Darby PRESS MANAGER 10/25/2013 Nurse visit Nidia Dabry PRESS MANAGER 10/18/2013 Voided Nidia Darby PRESS MANAGER 10/10/2013 Voided Yvonne Cassidy MD 10/03/2013 [...] Mart MD 04/18/2013 Nurse visit Nidia Darby PRESS MANAGER 04/04/2013 Nurse visit Nidia Darby PRESS MANAGER 03/28/2013 Nurse visit Nidia Darby PRESS MANAGER 03/21/2013 Nurse visit Nidia Darby PRESS MANAGER 03/13/2013 Nurse visit Nidia Darby PRESS MANAGER 03/09/2013 Nurse visit Nidia Darby PRESS MANAGER 03/02/2013 Nurse visit Nidia Darby PRESS MANAGER 02/21/2013 Nurse visit Nidia Darby PRESS MANAGER 02/13/2013 Office visit Nidia Swartz Wilner PRESS MANAGER 02/06/2013 Nurse visit Bria Mart MD [...] MD 10/04/2012 Nurse visit Nidia Sheridan Darby PRESS MANAGER 09/27/2012 Nurse visit Bria Mart MD [...] Mart MD 06/07/2012 Nurse visit Nidia Darby PRESS MANAGER 06/07/2012 Voided Francisco J Jesus 06/01/2012 Office [...] Mart MD 09/08/2011 Office visit Jessie Mock PRESS MANAGER 09/01/2011 Nurse visit Bria Mart MD [...]
--- OUTSIDE RECORDS SUMMARY | 2017-05-06 17:15 | XMS REPORT ---
Author Author Yvonne Cassidy [facility] Address [address] [place], [place] [id number] Care Team Providers Care Culvert Installer Name Role Phone Yvonne Cassidy PCP Allergies [...] Depo-Medrol 40 mg [facility]#[id number] Reviewed 09/08/2011 12:00 AM IMMUNOTHERAPY INJECTIONS Reviewed [...] Depo-Medrol 40 mg [facility]#[id number] Reviewed 12/01/2011 12:00 AM IMMUNOTHERAPY INJECTIONS Reviewed [...] 1 Mg [facility]# [address]-27 Reviewed 02/13/2013 12:00 AM Depo-Medrol, Per 80 Mg [facility]#0603-8924-44 Reviewed 06/05/2013 12:00 AM MAMMOGRAM SCREENING Returned [...] BILI 0.50 mg/dLCALCIUM 10.10 mg/dLeGFR >60 mL/min/1.73 [id number] 10.0 secsINR 1.0 PTT 28.20 secs 08/28/2014 [...] CVX Influenza 06/02/2010 sanofi pasteur PMC Fluzone [id number] Intramuscular Left Deltoid 06/02/2010 02/25/2010 999 Influenza 05/09/2015 [facility] Fluzone [id number] Intramuscular Left Deltoid 05/09/2015 02/22/2015 141 History [...] to other allergen Jul 09 2015 3:48PM Payers Insurance Name Company Name Plan Name Plan Number Policy Number Policy Group Number Start Date Bcbs [facility] [id number] [place] Self [place] *INVALID [place] Self Insurance [id number] N /A History of Encounters Visit Date Visit Type Provider 07/09/2015 Nurse visit Yvonne Cassidy MD 07/01/2015 Nurse visit Yvonne Cassidy MD 06/26/2015 Nurse visit Yvonne Cassidy MD 06/17/2015 Nurse visit Yvonne Cassidy MD 06/10/2015 Nurse visit Yvonne Cassidy MD 06/04/2015 Nurse visit Yvonne Cassidy MD 05/29/2015 Office visit Karolyn Millan ELECTRIC MILKERS INSTALLER 05/29/2015 Nurse visit Yvonne Cassidy MD 05/14/2015 Nurse visit Francisco J Jesus DO 05/09/2015 Nurse visit Yvonne Cassidy MD 04/30/2015 Nurse visit Yvonne Cassidy MD 04/23/2015 Nurse visit Yvonne Cassidy MD 04/18/2015 Nurse visit Nidia Darby ELECTRIC MILKERS INSTALLER 04/09/2015 Nurse visit Yvonne Cassidy MD 04/01/2015 Nurse visit Yvonne Cassidy MD 03/27/[address] Cody Horvath MD 03/25/2015 [facility] Alexander Park MD 03/19/2015 Nurse visit Yvonne Cassidy MD 03/19/2015 Office visit Nidia Darby ELECTRIC MILKERS INSTALLER 03/04/2015 Nurse visit Yvonne Cassidy MD 02/25/2015 [...] Cassidy MD 12/31/2014 Office visit Karolyn Millan ELECTRIC MILKERS INSTALLER 12/24/2014 Nurse visit Yvonne Cassidy MD 12/17/2014 Nurse visit Yvonne Cassidy MD 12/13/2014 Nurse visit Yvonne Cassidy MD 11/28/2014 Nurse visit Yvonne Cassidy MD 11/19/2014 Nurse visit Yvonne Cassidy MD 11/12/2014 Nurse visit Yvonne Cassidy MD 11/05/2014 Nurse visit Yvonne Cassidy MD 11/05/2014 [facility] Alexander Park MD 10/29/2014 Nurse visit Yvonne Cassidy MD 10/24/2014 Nurse visit Yvonne Cassidy MD 10/15/2014 Nurse visit Yvonne Cassidy MD 10/11/2014 Office visit Karolyn Millan ELECTRIC MILKERS INSTALLER 10/09/2014 Nurse visit Yvonne Cassidy MD 10/04/2014 Nurse visit Yvonne Cassidy MD 09/19/2014 Surgery Karolyn NiteshZafar Millan ELECTRIC MILKERS INSTALLER 09/13/2014 Office visit Yvonne Cassidy MD 09/06/2014 Nurse visit Yvonne Cassidy MD 08/28/2014 [facility] Chauncey Hogan MD 08/28/2014 [facility] Joe Thomas MD 08/23/2014 Nurse visit Yvonne Cassidy MD 08/22/2014 Surgery Joe Thomas MD 08/16/2014 Nurse visit Yvonne Cassidy MD 08/07/2014 Nurse visit Yvonne Cassidy MD 08/01/2014 Nurse visit Jessie Mock ELECTRIC MILKERS INSTALLER 07/25/2014 Nurse visit Nidia Darby ELECTRIC MILKERS INSTALLER 07/16/2014 Nurse visit Yvonne Cassidy MD 07/09/2014 [...] Cassidy MD 03/20/2014 Nurse visit Jessie Mock ELECTRIC MILKERS INSTALLER 03/13/2014 Nurse visit Donte Hastings ELECTRIC MILKERS INSTALLER 03/07/2014 Nurse visit Yvonne Cassidy MD 02/27/2014 Nurse visit Jessie Mock ELECTRIC MILKERS INSTALLER 02/20/2014 Nurse visit Donte Hastings ELECTRIC MILKERS INSTALLER 02/13/2014 Nurse visit Donte Hastings ELECTRIC MILKERS INSTALLER 02/13/2014 Procedures Joe Thomas MD 02/07/2014 Office visit Joe Thomas MD 02/06/2014 Nurse visit Yvonne Cassidy MD 01/17/2014 Nurse visit Nidia Darby ELECTRIC MILKERS INSTALLER 01/10/2014 Nurse visit Yvonne Cassidy MD 01/02/2014 Nurse visit Yvonne Cassidy MD 12/26/2013 Nurse visit Yvonne Cassidy MD 12/18/2013 Nurse visit Yvonne Cassidy MD 12/12/2013 Nurse visit Yvonne Cassidy MD 12/05/2013 Nurse visit Yvonne Cassidy MD 11/28/2013 Nurse visit Yvonne Cassidy MD 11/21/2013 Nurse visit Yvonne Cassidy MD 11/14/2013 Nurse visit Yvonne Cassidy MD 11/07/2013 Nurse visit Nidia Darby ELECTRIC MILKERS INSTALLER 10/31/2013 Nurse visit Nidia Darby ELECTRIC MILKERS INSTALLER 10/25/2013 Nurse visit Nidia Darby ELECTRIC MILKERS INSTALLER 10/18/2013 Voided Nidia Darby ELECTRIC MILKERS INSTALLER 10/10/2013 Voided Yvonne Cassidy MD 10/03/2013 Nurse [...] visit Bria Mart MD 05/09/2013 Nurse visit Bira Mart MD 05/01/2013 Nurse visit Bria Mart MD 04/18/2013 Nurse visit Nidia Sheridan Darby ELECTRIC MILKERS INSTALLER 04/04/2013 Nurse visit Nidia Sheridan Darby ELECTRIC MILKERS INSTALLER 03/28/2013 Nurse visit Nidia Sheridan Darby ELECTRIC MILKERS INSTALLER 03/21/2013 Nurse visit Nidiafarideh Darby ELECTRIC MILKERS INSTALLER 03/13/2013 Nurse visit Nidia Sheridan Darby ELECTRIC MILKERS INSTALLER 03/09/2013 Nurse visit Nidia Sheridan Darby ELECTRIC MILKERS INSTALLER 03/02/2013 Nurse visit Nidia Sheridan Darby ELECTRIC MILKERS INSTALLER 02/21/2013 Nurse visit Nidia Darby ELECTRIC MILKERS INSTALLER 02/13/2013 Office visit Nidia Darby ELECTRIC MILKERS INSTALLER 02/06/2013 Nurse visit Bria Mart MD 01/31/2013 [...] Mart MD 10/04/2012 Nurse visit Nidia Darby ELECTRIC MILKERS INSTALLER 09/27/2012 Nurse visit Bria Mart MD 09/22/2012 [...] Mart MD 06/07/2012 Nurse visit Nidia Darby ELECTRIC MILKERS INSTALLER 06/07/2012 Voided Francisco J Edin ISSA 06/01/2012 [...] Mart MD 09/08/2011 Office visit Jessie Mock ELECTRIC MILKERS INSTALLER 09/01/2011 Nurse visit Bria Mart MD 08/21/2011 Office visit Bira Mart MD 08/12/2011 Nurse visit Bria Mart [...]
--- OUTSIDE RECORDS SUMMARY | 2017-05-06 17:20 | XMS REPORT ---
Author Author Jessie Mock [facility] Address [address] [place], [place] [id number] Care Team Providers Care Single Spindle Screw Machine Operator Name Role Phone Jessie Mock PCP [...] Reviewed 08/21/2011 12:00 AM Depo-Medrol 40 mg [facility]#[id number] Reviewed 03/02/2016 12:00 AM IMMUNOTHERAPY INJECTIONS Reviewed 03/06/2016 12:00 AM IMMUNOTHERAPY INJECTIONS Reviewed 03/11/2016 12:00 AM IMMUNOTHERAPY INJECTIONS Reviewed 03/17/2016 12:00 AM IMMUNOTHERAPY INJECTIONS Reviewed 09/08/2011 12:00 AM IMMUNOTHERAPY INJECTIONS Reviewed 03/26/2016 12:00 AM IMMUNOTHERAPY INJECTIONS Reviewed 04/01/2016 12:00 AM IMMUNOTHERAPY INJECTIONS Reviewed 09/24/2011 12:00 [...] Reviewed 11/27/2011 12:00 AM Depo-Medrol 40 mg [facility]#[id number] Reviewed 12/01/2011 12:00 AM IMMUNOTHERAPY INJECTIONS Reviewed [...] 02/13/2013 12:00 AM Decadron, Per 1 Mg [facility]# [address]-16 Reviewed 02/13/2013 12:00 AM Depo-Medrol, Per 80 Mg [facility]#3412-6673-25 Reviewed 06/05/2013 12:00 AM MAMMOGRAM SCREENING Returned [...] BILI 0.50 mg/dLCALCIUM 10.10 mg/dLeGFR >60 mL/min/1.73 [id number] 10.0 secsINR 1.0 PTT 28.20 secs 08/28/2014 [...] CVX Influenza 06/02/2010 sanofi pasteur PMC Fluzone [id number] Intramuscular Left Deltoid 06/02/2010 02/25/2010 999 Influenza 05/09/2015 sanofi pasteur PMC Fluzone [id number] Intramuscular Left Deltoid 05/09/2015 02/22/2015 141 History [...] to other allergen Apr 01 2016 9:54AM Payers Insurance Name Company Name Plan Name Plan Number Policy Number Policy Group Number [id number] Self [facility] Fund *INVALID State Self Insurance [id number] N/A Comp [place] [id number] Wednesday, 2015 History of Encounters Visit Date Visit Type Provider 04/01/2016 Office visit Jessie Mock INSIDE SALES COORDINATOR 03/26/2016 Nurse visit Yvonne Cassidy MD 03/17/2016 Nurse visit Yvonne Cassidy MD 03/11/2016 Nurse visit Yvonne Cassidy MD 03/04/2016 Office visit Jessie Mock INSIDE SALES COORDINATOR 03/02/2016 Nurse visit Yvonne Cassidy MD 02/19/2016 Nurse visit Yvonne Cassidy MD 02/12/2016 Office visit Jessie Mock INSIDE SALES COORDINATOR 02/03/2016 Nurse visit Yvonne Cassidy MD 01/27/2016 Nurse visit Yvonne Cassidy MD 01/15/2016 Nurse visit Yvonne Cassidy MD 01/08/2016 Office visit Jessie Mock INSIDE SALES COORDINATOR 12/25/2015 Nurse visit Yvonne Cassidy MD 12/09/2015 Nurse visit Yvonne Cassidy MD 12/02/2015 Nurse visit Yvonne Cassidy MD 11/29/2015 Nurse visit Donte Hastings INSIDE SALES COORDINATOR 11/28/2015 Nurse visit Jessie Mock INSIDE SALES COORDINATOR 11/27/2015 Office visit Jessie Mock INSIDE SALES COORDINATOR 11/25/2015 Office visit Donte Darling INSIDE SALES COORDINATOR 11/18/2015 Nurse visit Donte Hastings INSIDE SALES COORDINATOR 11/11/2015 Nurse visit Jessie Nish INSIDE SALES COORDINATOR 11/04/2015 Nurse visit Donte Hastings INSIDE SALES COORDINATOR 10/29/2015 Office visit Jessie Mock INSIDE SALES COORDINATOR 10/28/2015 Nurse visit Jessie Nish INSIDE SALES COORDINATOR 10/21/2015 Nurse visit Glenn Tejeda MD 10/15/2015 Nurse visit Francisco J Jesus DO 10/09/2015 Nurse visit Glenn Tejeda MD 10/02/2015 Office visit April Atkinson INSIDE SALES COORDINATOR 10/01/2015 Nurse visit Jessie Mock INSIDE SALES COORDINATOR 09/11/2015 Nurse visit Yvonne Cassidy MD 09/05/2015 [...] Office visit 05/29/2015 Office visit Karolyn Millan INSIDE SALES COORDINATOR 05/29/2015 Nurse visit Yvonne Cassidy MD 05/14/2015 Nurse visit Francisco J Jesus DO 05/09/2015 Nurse visit Yvonne Cassidy MD 04/30/2015 Nurse visit Yvonne Cassidy MD 04/23/2015 Nurse visit Yvonne Cassidy MD 04/18/2015 Nurse visit Nidia Darby INSIDE SALES COORDINATOR 04/09/2015 Nurse visit Yvonne Cassidy MD 04/01/2015 Nurse visit Yvonne Cassidy MD 03/27/[address] Cody Horvath MD 03/25/2015 [facility] Darin Park MD 03/19/2015 Nurse visit Yvonne Cassidy MD 03/19/2015 Office visit Nidia Darby INSIDE SALES COORDINATOR 03/04/2015 Nurse visit Yvonne Cassidy MD 02/25/2015 [...] Office visit 12/31/2014 Office visit Karolyn Millan INSIDE SALES COORDINATOR 12/24/2014 Nurse visit Yvonne Cassidy MD 12/17/2014 Nurse visit Yvonne Cassidy MD 12/13/2014 Nurse visit Yvonne Cassidy MD 11/28/2014 Nurse visit Yvonne Cassidy MD 11/19/2014 Nurse visit Yvonne Cassidy MD 11/12/2014 Nurse visit Yvonne Cassidy MD 11/05/2014 Nurse visit Yvonne Cassidy MD 11/05/2014 [facility] Darin Park MD 10/29/2014 Nurse visit Yvonne Cassidy MD 10/24/2014 Nurse visit Yvonne Cassidy MD 10/15/2014 Nurse visit Yvonne Cassidy MD 10/11/2014 Office visit Karolyn Millan INSIDE SALES COORDINATOR 10/09/2014 Nurse visit Yvonne Cassidy MD 10/04/2014 Nurse visit Yvonne Cassidy MD 09/19/2014 Surgery Karolyn Millan INSIDE SALES COORDINATOR 09/13/2014 Office visit Yvonne Cassidy MD 09/06/2014 Nurse visit Yvonne Cassidy MD 08/28/2014 [facility] Chauncey Hogan MD 08/28/2014 [facility] Joe Thomas MD 08/23/2014 Nurse visit Yvonne Cassidy MD 08/22/2014 Surgery Joe Thomas MD 08/16/2014 Nurse visit Yvonne Cassidy MD 08/07/2014 Nurse visit Yvonne Cassidy MD 08/01/2014 Nurse visit Jessie Mock INSIDE SALES COORDINATOR 07/25/2014 Nurse visit Nidia Darby INSIDE SALES COORDINATOR 07/16/2014 Nurse visit Yvonne Cassidy MD 07/09/2014 [...] Cassidy MD 03/20/2014 Nurse visit Jessie Mock INSIDE SALES COORDINATOR 03/13/2014 Nurse visit Donte Hastings INSIDE SALES COORDINATOR 03/07/2014 Nurse visit Yvonne Cassidy MD 02/27/2014 Nurse visit Jessie Mock INSIDE SALES COORDINATOR 02/20/2014 Nurse visit Donte Hastings INSIDE SALES COORDINATOR 02/13/2014 Nurse visit Donte Hastings INSIDE SALES COORDINATOR 02/13/2014 Procedures Joe Thomas MD 02/07/2014 Office visit Joe Thomas MD 02/06/2014 Nurse visit Yvonne Cassidy MD 01/17/2014 Nurse visit Nidia Darby INSIDE SALES COORDINATOR 01/10/2014 Nurse visit Yvonne Cassidy MD 01/02/2014 Nurse visit Yvonne Cassidy MD 12/26/2013 Nurse visit Yvonne Cassidy MD 12/18/2013 Nurse visit Yvonne Cassidy MD 12/12/2013 Nurse visit Yvonne Cassidy MD 12/05/2013 Nurse visit Yvonne Cassidy MD 11/28/2013 Nurse visit Yvonne Cassidy MD 11/21/2013 Nurse visit Yvonne Cassidy MD 11/14/2013 Nurse visit Yvonne Cassidy MD 11/07/2013 Nurse visit Nidia Darby INSIDE SALES COORDINATOR 10/31/2013 Nurse visit Nidia Darby INSIDE SALES COORDINATOR 10/25/2013 Nurse visit Nidia Darby INSIDE SALES COORDINATOR 10/18/2013 Voided Nidia Darby INSIDE SALES COORDINATOR 10/10/2013 Voided Yvonne Cassidy MD 10/03/2013 Nurse [...] Mart MD 04/18/2013 Nurse visit Nidia Darby INSIDE SALES COORDINATOR 04/04/2013 Nurse visit Nidia Darby INSIDE SALES COORDINATOR 03/28/2013 Nurse visit Nidia Darby INSIDE SALES COORDINATOR 03/21/2013 Nurse visit Nidia Darby INSIDE SALES COORDINATOR 03/13/2013 Nurse visit Nidia Darby INSIDE SALES COORDINATOR 03/09/2013 Nurse visit Nidia Darby INSIDE SALES COORDINATOR 03/02/2013 Nurse visit Nidia Darby INSIDE SALES COORDINATOR 02/21/2013 Nurse visit Nidia Darby INSIDE SALES COORDINATOR 02/13/2013 Office visit Nidia Swartz Wilner INSIDE SALES COORDINATOR 02/06/2013 Nurse visit Bria Mart MD 01/31/2013 [...] MD 10/04/2012 Nurse visit Nidia Sheridan Darby INSIDE SALES COORDINATOR 09/27/2012 Nurse visit Bria Mart MD 09/22/2012 [...] MD 06/07/2012 Nurse visit Nidia GonzalesZafar Darby INSIDE SALES COORDINATOR 06/07/2012 Voided Francisco J Jesus 06/01/2012 Office [...]
--- OUTSIDE RECORDS SUMMARY | 2017-05-06 17:23 | XMS REPORT ---
Author Author Yvonne Cassidy Organization [facility] Address [address] [place], [place] [address] Care Team Providers Care Network Systems Administrator Name Role Phone Yvonne Cassidy PCP Allergies [...] BILI 0.50 mg/dLCALCIUM 10.10 mg/dLeGFR >60 mL/min/1.73 [id number] 10.0 secsINR 1.0 PTT 28.20 secs 08/28/2014 [...] Of Immunizations Name Date Admin Mfg Name [facility] [place] Trade Name Lot# Route Inj Vis Given Vis Pub CVX Influenza 06/02/2010 sanofi pasteur PMC Fluzone [id number] Intramuscular Left Deltoid 06/02/2010 02/25/2010 999 History [...] to other allergen Jan 21 2015 4:43PM Payers Insurance Name Company Name Plan Name Plan Number Policy Number Policy Group Number Start Date Bcbs [facility] [place] [id number] [place] Self Insurance [place] *INVALID [place] Self Insurance [id number] N /A History of Encounters Visit Date Visit Type Provider 01/21/2015 Nurse visit Yvonne Cassidy MD 01/15/2015 Nurse visit Yvonne Cassidy MD 01/07/2015 Nurse visit Yvonne Cassidy MD 12/31/2014 Office visit Karolyn Millan READING RECOVERY TEACHER 12/31/2014 Nurse visit Yvonne Cassidy MD 12/24/2014 Nurse visit Yvonne Cassidy MD 12/17/2014 Nurse visit Yvonne Cassidy MD 12/13/2014 Nurse visit Yvonne Cassidy MD 11/28/2014 Nurse visit Yvonne Cassidy MD 11/19/2014 Nurse visit Yvonne Cassidy MD 11/12/2014 Nurse visit Yvonne Cassidy MD 11/05/2014 Nurse visit Yvonne Cassidy MD 11/05/2014 [facility] Darin Park MD 10/29/2014 Nurse visit Yvonne Cassidy MD 10/24/2014 Nurse visit Yvonne Cassidy MD 10/15/2014 Nurse visit Yvonne Cassidy MD 10/11/2014 Office visit Karolyn Millan READING RECOVERY TEACHER 10/09/2014 Nurse visit Yvonne Cassidy MD 10/04/2014 Nurse visit Yvonne Cassidy MD 09/19/2014 Surgery Karolyn Millan READING RECOVERY TEACHER 09/13/2014 Office visit Yvonne Cassidy MD 09/06/2014 Nurse visit Yvonne Cassidy MD 08/28/2014 [facility] Joe Thomas MD 08/28/2014 [facility] Chauncey Hogan MD 08/23/2014 Nurse visit Yvonne Cassidy MD 08/22/2014 Surgery Joe Thomas MD 08/16/2014 Nurse visit Yvonne Cassidy MD 08/07/2014 Nurse visit Yvonne Cassidy MD 08/01/2014 Nurse visit Jessie Mock READING RECOVERY TEACHER 07/25/2014 Nurse visit Nidia Darby READING RECOVERY TEACHER 07/16/2014 Nurse visit Yvonne Cassidy MD [...] Cassidy MD 03/20/2014 Nurse visit Jessie Mock READING RECOVERY TEACHER 03/13/2014 Nurse visit Donte Hastings READING RECOVERY TEACHER 03/07/2014 Nurse visit Yvonne Cassidy MD 02/27/2014 Nurse visit Jessie Mock READING RECOVERY TEACHER 02/20/2014 Nurse visit Donte Hastings READING RECOVERY TEACHER 02/13/2014 Procedures Joe Thomas MD 02/13/2014 Nurse visit Donte Hastings READING RECOVERY TEACHER 02/07/2014 Office visit Joe Thomas MD 02/06/2014 Nurse visit Yvonne Cassidy MD 01/17/2014 Nurse visit Nidia Darby READING RECOVERY TEACHER 01/10/2014 Nurse visit Yvonne Cassidy MD 01/02/2014 Nurse visit Yvonne Cassidy MD 12/26/2013 Nurse visit Yvonne Cassidy MD 12/18/2013 Nurse visit Yvonne Cassidy MD 12/12/2013 Nurse visit Yvonne Cassidy MD 12/05/2013 Nurse visit Yvonne Cassidy MD 11/28/2013 Nurse visit Yvonne Cassidy MD 11/21/2013 Nurse visit Yvonne Cassidy MD 11/14/2013 Nurse visit Yvonne Cassidy MD 11/07/2013 Nurse visit Nidia Darby READING RECOVERY TEACHER 10/31/2013 Nurse visit Nidia Darby READING RECOVERY TEACHER 10/25/2013 Nurse visit Nidia Darby READING RECOVERY TEACHER 10/18/2013 Voided Nidia Darby READING RECOVERY TEACHER 10/10/2013 Voided Yvonne Cassidy MD 10/03/2013 [...] Mart MD 04/18/2013 Nurse visit Nidia Darby READING RECOVERY TEACHER 04/04/2013 Nurse visit Nidia Darby READING RECOVERY TEACHER 03/28/2013 Nurse visit Nidia Darby READING RECOVERY TEACHER 03/21/2013 Nurse visit Nidia Darby READING RECOVERY TEACHER 03/13/2013 Nurse visit Nidia Darby READING RECOVERY TEACHER 03/09/2013 Nurse visit Nidia Darby READING RECOVERY TEACHER 03/02/2013 Nurse visit Nidia Darby READING RECOVERY TEACHER 02/21/2013 Nurse visit Nidia Darby READING RECOVERY TEACHER 02/13/2013 Office visit Nidia Darby READING RECOVERY TEACHER 02/06/2013 Nurse visit Bria Mart MD [...] Mart MD 10/04/2012 Nurse visit Nidia Darby READING RECOVERY TEACHER 09/27/2012 Nurse visit Bria Mart MD [...] Jesus DO 06/07/2012 Nurse visit Nidia Darby READING RECOVERY TEACHER 06/01/2012 Office visit Bria Mart MD 05/24/2012 Nurse visit Bria Mart MD 05/17/2012 Nurse visit Bria Mart MD 05/10/2012 Nurse visit Bria Mart MD 05/03/2012 Nurse visit Bria Mart MD 04/26/2012 Nurse visit Bria Mart MD 04/21/2012 Nurse visit Bria Mart MD 04/12/2012 Nurse visit Bria Mart MD 04/05/2012 Nurse visit Bria aMrt MD 03/29/2012 Nurse visit Bria Mart MD 03/22/2012 Nurse visit Bria Mart MD 03/15/2012 Nurse visit Bria Mart MD 03/08/2012 Nurse visit Bria Mart MD 03/01/2012 Nurse visit Bria Mart MD 02/25/2012 Nurse visit Bria Mart MD 02/15/2012 Nurse visit Brai Mart MD 02/08/2012 Nurse visit Bria Mart MD 02/02/2012 Nurse visit Bria Mart MD 01/26/2012 Nurse visit Bria Mart MD 01/12/2012 Nurse visit Bria Mart MD 01/05/2012 Nurse visit Glenn Tejeda MD 12/29/2011 Nurse visit Bria Mart MD 12/22/2011 Nurse visit Bria Mart MD 12/18/2011 Nurse visit Bria Mart MD 12/08/2011 Nurse visit Bria Matr MD 12/01/2011 Nurse visit Bria Mart MD [...] Mart MD 09/08/2011 Office visit Jessie Mock READING RECOVERY TEACHER 09/08/2011 Nurse visit Bria Mart MD 09/01/2011 [...]
--- OUTSIDE RECORDS SUMMARY | 2017-05-06 17:27 | XMS REPORT ---
Author Author Yvonne Cassidy Organization [facility] Address [address] [place], [place] [address] Care Team Providers Care Stroboroma Operator Name Role Phone Yvonne Cassidy PCP Yvonne [...] 08/21/2011 12:00 AM Depo-Medrol 40 mg [facility]#[id number] Reviewed 03/02/2016 12:00 AM IMMUNOTHERAPY INJECTIONS Reviewed [...] 12:00 AM Depo-Medrol 40 mg [facility]#[id number] Reviewed 12/01/2011 12:00 AM IMMUNOTHERAPY INJECTIONS Reviewed [...] Decadron, Per 1 Mg [facility]# [address]-75 Reviewed 02/13/2013 12:00 AM Depo-Medrol, Per 80 Mg [facility]#9637-1280-23 Reviewed 06/05/2013 12:00 AM MAMMOGRAM SCREENING Reviewed [...] CVX Influenza 06/02/2010 sanofi pasteur PMC Fluzone [id number] Intramuscular Left Deltoid 06/02/2010 02/25/2010 999 Influenza 05/09/2015 sanofi pasteur PMC Fluzone [id number] Intramuscular Left Deltoid 05/09/2015 02/22/2015 141 History [...] to other allergen Jun 24 2016 3:48PM Payers Insurance Name Company Name Plan Name Plan Number Policy Number Policy Group Number [facility] Date [facility] [id number] June [facility] Self Insurance Fund *INVALID State Self Insurance [id number] N/A Comp [place] [id number] Wednesday, 2015 History of Encounters Visit Date Visit Type Provider 06/24/2016 Nurse visit Yvonne Cassidy MD 06/16/2016 Office visit Yvonne Cassidy MD 06/09/2016 Nurse visit Yvonne Cassidy MD 06/02/2016 Office visit 06/02/2016 Office visit Karolyn Millan ORDNANCE TECHNICIAN 06/01/2016 Nurse visit Yvonne Cassidy MD 05/27/2016 Nurse visit Yvonne Cassidy MD 05/11/2016 Nurse visit Yvonne Cassidy MD 05/05/2016 Nurse visit Yvonne Cassidy MD 04/29/2016 Nurse visit Yvonne Cassidy MD 04/23/2016 Office visit Jessie oMck ORDNANCE TECHNICIAN 04/13/2016 Nurse visit Yvonne Cassidy MD 04/07/2016 Nurse visit Yvonne Cassidy MD 04/01/2016 Office visit Jessie Mock ORDNANCE TECHNICIAN 03/26/2016 Nurse visit Yvonne Cassidy MD 03/17/2016 Nurse visit Yvonne Cassidy MD 03/11/2016 Nurse visit Yvonne Cassidy MD 03/04/2016 Office visit Jessie Mock ORDNANCE TECHNICIAN 03/02/2016 Nurse visit Yvonne Cassidy MD 02/19/2016 Nurse visit Yvonne Cassidy MD 02/12/2016 Office visit Jessie Mock ORDNANCE TECHNICIAN 02/03/2016 Nurse visit Yvonne Cassidy MD 01/27/2016 Nurse visit Yvonne Cassidy MD 01/15/2016 Nurse visit Yvonne Cassidy MD 01/08/2016 Office visit Jessie Mock ORDNANCE TECHNICIAN 12/25/2015 Nurse visit Yvonne Cassidy MD 12/09/2015 Nurse visit Yvonne Cassidy MD 12/02/2015 Nurse visit Yvonne Cassidy MD 11/29/2015 Nurse visit Donte Hastings ORDNANCE TECHNICIAN 11/28/2015 Nurse visit Jessie Mock ORDNANCE TECHNICIAN 11/27/2015 Office visit Jessie Mock ORDNANCE TECHNICIAN 11/25/2015 Office visit Donte Darling ORDNANCE TECHNICIAN 11/18/2015 Nurse visit Donte Darling ORDNANCE TECHNICIAN 11/11/2015 Nurse visit Jessie Mock ORDNANCE TECHNICIAN 11/04/2015 Nurse visit Donte Hastings ORDNANCE TECHNICIAN 10/29/2015 Office visit Jessie Mock ORDNANCE TECHNICIAN 10/28/2015 Nurse visit Jessie Mock ORDNANCE TECHNICIAN 10/21/2015 Nurse visit Glenn Tejeda MD 10/15/2015 Nurse visit Francisco J Jesus DO 10/09/2015 Nurse visit Glenn Tejeda MD 10/02/2015 Office visit April Atkinson ORDNANCE TECHNICIAN 10/01/2015 Nurse visit Jessie Nish ORDNANCE TECHNICIAN 09/11/2015 Nurse visit Yvonne Cassidy MD 09/05/2015 [...] Office visit 05/29/2015 Office visit Karolyn Millan ORDNANCE TECHNICIAN 05/29/2015 Nurse visit Yvonne Cassidy MD 05/14/2015 Nurse visit Francisc oJ Jesus DO 05/09/2015 Nurse visit Yvonne Cassidy MD 04/30/2015 Nurse visit Yvonne Cassidy MD 04/23/2015 Nurse visit Yvonne Cassidy MD 04/18/2015 Nurse visit Nidia Darby ORDNANCE TECHNICIAN 04/09/2015 Nurse visit Yvonne Cassidy MD 04/01/2015 Nurse visit Yvonne Cassidy MD 03/27/[address] Cody Horvath MD 03/25/2015 [facility] Alexander Park MD 03/19/2015 Nurse visit Yvonne Cassidy MD 03/19/2015 Office visit Nidia Darby ORDNANCE TECHNICIAN 03/04/2015 Nurse visit Yvonne Cassidy MD 02/25/2015 [...] Office visit 12/31/2014 Office visit Karolyn Millan ORDNANCE TECHNICIAN 12/24/2014 Nurse visit Yvonne Cassidy MD 12/17/2014 Nurse visit Yvonne Cassidy MD 12/13/2014 Nurse visit Yvonne Cassidy MD 11/28/2014 Nurse visit Yvonne Cassidy MD 11/19/2014 Nurse visit Yvonne Cassidy MD 11/12/2014 Nurse visit Yvonne Cassidy MD 11/05/2014 Nurse visit Yvonne Cassidy MD 11/05/2014 [facility] Alexander Park MD 10/29/2014 Nurse visit Yvonne Cassidy MD 10/24/2014 Nurse visit Yvonne Cassidy MD 10/15/2014 Nurse visit Yvonne Cassidy MD 10/11/2014 Office visit Karolyn Millan ORDNANCE TECHNICIAN 10/09/2014 Nurse visit Yvonne Cassidy MD 10/04/2014 Nurse visit Yvonne Cassidy MD 09/19/2014 Surgery Karolyn Millan ORDNANCE TECHNICIAN 09/13/2014 Office visit Yvonne Cassidy MD 09/06/2014 Nurse visit Yvonne Cassidy MD 08/28/2014 [facility] Chauncey Hogan MD 08/28/2014 [facility] Joe Thomas MD 08/23/2014 Nurse visit Yvonne Cassidy MD 08/22/2014 Surgery Joe Thomas MD 08/16/2014 Nurse visit Yvonne Cassidy MD 08/07/2014 Nurse visit Yvonne Cassidy MD 08/01/2014 Nurse visit Jessie Mock ORDNANCE TECHNICIAN 07/25/2014 Nurse visit Nidia Darby ORDNANCE TECHNICIAN 07/16/2014 Nurse visit Yvonne Cassidy MD [...] Cassidy MD 03/20/2014 Nurse visit Jessie Mock ORDNANCE TECHNICIAN 03/13/2014 Nurse visit Donte Hastings ORDNANCE TECHNICIAN 03/07/2014 Nurse visit Yvonne Cassidy MD 02/27/2014 Nurse visit Jessie Mock ORDNANCE TECHNICIAN 02/20/2014 Nurse visit Donte Hastings ORDNANCE TECHNICIAN 02/13/2014 Nurse visit Donte Hastings ORDNANCE TECHNICIAN 02/13/2014 Procedures Joe Thomas MD 02/07/2014 Office visit Joe Thomas MD 02/06/2014 Nurse visit Yvonne Cassidy MD 01/17/2014 Nurse visit Nidia Darby ORDNANCE TECHNICIAN 01/10/2014 Nurse visit Yvonne Cassidy MD 01/02/2014 Nurse visit Yvonne Cassidy MD 12/26/2013 Nurse visit Yvonne Cassidy MD 12/18/2013 Nurse visit Yvonne Cassidy MD 12/12/2013 Nurse visit Yvonne Cassidy MD 12/05/2013 Nurse visit Yvonne Cassidy MD 11/28/2013 Nurse visit Yvonne Cassidy MD 11/21/2013 Nurse visit Yvonne Cassidy MD 11/14/2013 Nurse visit Yvonne Cassidy MD 11/07/2013 Nurse visit Nidia Darby ORDNANCE TECHNICIAN 10/31/2013 Nurse visit Nidia Darby ORDNANCE TECHNICIAN 10/25/2013 Nurse visit Nidia Darby ORDNANCE TECHNICIAN 10/18/2013 Voided Nidia Darby ORDNANCE TECHNICIAN 10/10/2013 Voided Yvonne Cassidy MD 10/03/2013 [...] visit Joe Thomas MD 05/30/2013 Nurse visit Brai Mart MD 05/23/2013 Nurse visit Bria Mart MD 05/18/2013 Office visit Joe Thomas MD 05/15/2013 Nurse visit Bria Mart MD 05/09/2013 Nurse visit Bria Mart MD 05/01/2013 Nurse visit Bria Mart MD 04/18/2013 Nurse visit Nidia Darby ORDNANCE TECHNICIAN 04/04/2013 Nurse visit Nidia Darby ORDNANCE TECHNICIAN 03/28/2013 Nurse visit Nidia Darby ORDNANCE TECHNICIAN 03/21/2013 Nurse visit Nidia Darby ORDNANCE TECHNICIAN 03/13/2013 Nurse visit Nidia Darby ORDNANCE TECHNICIAN 03/09/2013 Nurse visit Nidia Darby ORDNANCE TECHNICIAN 03/02/2013 Nurse visit Nidia Darby ORDNANCE TECHNICIAN 02/21/2013 Nurse visit Nidia Darby ORDNANCE TECHNICIAN 02/13/2013 Office visit Nidia Darby ORDNANCE TECHNICIAN 02/06/2013 Nurse visit Bria Mart MD 01/31/2013 Nurse visit Bria Mart MD 01/24/2013 Nurse visit Brai Mart MD 01/17/2013 Nurse visit Bria Mart [...] Mart MD 10/04/2012 Nurse visit Nidia Darby ORDNANCE TECHNICIAN 09/27/2012 Nurse visit Bria Mart MD [...] Mart MD 06/07/2012 Nurse visit Nidia Darby ORDNANCE TECHNICIAN 06/07/2012 Voided Francisco J Jesus DO 06/01/2012 [...] visit Bria Mart MD 01/26/2012 Nurse visit Brai Mart MD 01/12/2012 Nurse visit Bria Mart [...]
--- OUTSIDE RECORDS SUMMARY | 2017-05-06 17:31 | XMS REPORT ---
Author Author Jessie Mock [facility] Address [address] [place], [place] [id number] Care Team Providers Care Front Desk Coordinator Name Role Phone Jessie Mock PCP [...] Reviewed 08/21/2011 12:00 AM Depo-Medrol 40 mg [facility]#[id number] Reviewed 09/08/2011 12:00 AM IMMUNOTHERAPY INJECTIONS Reviewed [...] Reviewed 11/27/2011 12:00 AM Depo-Medrol 40 mg [facility]#[id number] Reviewed 12/01/2011 12:00 AM IMMUNOTHERAPY INJECTIONS Reviewed [...] 02/13/2013 12:00 AM Decadron, Per 1 Mg [facility]# [address]-82 Reviewed 02/13/2013 12:00 AM Depo-Medrol, Per 80 Mg [facility]#4603-3625-29 Reviewed 06/05/2013 12:00 AM MAMMOGRAM SCREENING Returned [...] BILI 0.50 mg/dLCALCIUM 10.10 mg/dLeGFR >60 mL/min/1.73 [id number] 10.0 secsINR 1.0 PTT 28.20 secs 08/28/2014 [...] CVX Influenza 06/02/2010 sanofi pasteur PMC Fluzone [id number] Intramuscular Left Deltoid 06/02/2010 02/25/2010 999 Influenza 05/09/2015 sanofi pasteur PMC Fluzone [id number] Intramuscular Left Deltoid 05/09/2015 02/22/2015 141 History [...] to other allergen Feb 12 2016 3:34PM Payers Insurance Name Company Name Plan Name Plan Number Policy Number Policy Group Number Start Date BCBS [employer] [place] [id number] June [facility] Self Insurance Fund *INVALID [facility] Self Insurance [id number] N/A Comp [place] [employer] [place] [id number] Wednesday, 2015 History of Encounters Visit Date Visit Type Provider 02/12/2016 Office visit Jessie Mock FURRIER SHOP SUPERVISOR 02/03/2016 Nurse visit Yvonne Cassidy MD 01/27/2016 Nurse visit Yvonne Cassidy MD 01/15/2016 Nurse visit Yvonne Casisdy MD 01/08/2016 Office visit Jessie Mock FURRIER SHOP SUPERVISOR 12/25/2015 Nurse visit Yvonne Cassidy MD 12/09/2015 Nurse visit Yvonne Cassidy MD 12/02/2015 Nurse visit Yvonne Cassidy MD 11/29/2015 Nurse visit Donte Hastings FURRIER SHOP SUPERVISOR 11/28/2015 Nurse visit Jessie Mock FURRIER SHOP SUPERVISOR 11/27/2015 Office visit Jessie Mock FURRIER SHOP SUPERVISOR 11/25/2015 Office visit Donte Hastings FURRIER SHOP SUPERVISOR 11/18/2015 Nurse visit Donte Hastings FURRIER SHOP SUPERVISOR 11/11/2015 Nurse visit Jessie Mock FURRIER SHOP SUPERVISOR 11/04/2015 Nurse visit Donte Hastings FURRIER SHOP SUPERVISOR 10/29/2015 Office visit Jessie Mock FURRIER SHOP SUPERVISOR 10/28/2015 Nurse visit Jessie Mock FURRIER SHOP SUPERVISOR 10/21/2015 Nurse visit Glenn Tejeda MD 10/15/2015 Nurse visit Francisco J Jesus DO 10/09/2015 Nurse visit Glenn Tejeda MD 10/02/2015 Office visit April Atkinson FURRIER SHOP SUPERVISOR 10/01/2015 Nurse visit Jessie Mock FURRIER SHOP SUPERVISOR 09/11/2015 Nurse visit Yvonne Cassidy MD [...] Office visit 05/29/2015 Office visit Karolyn Millan FURRIER SHOP SUPERVISOR 05/29/2015 Nurse visit Yvonne Cassidy MD 05/14/2015 Nurse visit Francisco J Jesus DO 05/09/2015 Nurse visit Yvonne Cassidy MD 04/30/2015 Nurse visit Yvonne Cassidy MD 04/23/2015 Nurse visit Yvonne Cassidy MD 04/18/2015 Nurse visit Nidia Darby FURRIER SHOP SUPERVISOR 04/09/2015 Nurse visit Yvonne Cassidy MD 04/01/2015 Nurse visit Yvonne Cassidy MD 03/27/[address] Cody Horvath MD 03/25/2015 [facility] Alexander Park MD 03/19/2015 Nurse visit Yvonne Cassidy MD 03/19/2015 Office visit Nidia Darby FURRIER SHOP SUPERVISOR 03/04/2015 Nurse visit Yvonne Cassidy MD [...] Office visit 12/31/2014 Office visit Karolyn Millan FURRIER SHOP SUPERVISOR 12/24/2014 Nurse visit Yvonne Cassidy MD 12/17/2014 Nurse visit Yvonne Cassidy MD 12/13/2014 Nurse visit Yvonne Cassidy MD 11/28/2014 Nurse visit Yvonne Cassidy MD 11/19/2014 Nurse visit Yvonne Cassidy MD 11/12/2014 Nurse visit Yvonne Cassidy MD 11/05/2014 Nurse visit Yvonne Cassidy MD 11/05/2014 [facility] Alexander Park MD 10/29/2014 Nurse visit Yvonne Cassidy MD 10/24/2014 Nurse visit Yvonne Cassidy MD 10/15/2014 Nurse visit Yvonne Cassidy MD 10/11/2014 Office visit Karolyn Millan FURRIER SHOP SUPERVISOR 10/09/2014 Nurse visit Yvonne Cassidy MD 10/04/2014 Nurse visit Yvonne Cassidy MD 09/19/2014 Surgery Karolyn Millan FURRIER SHOP SUPERVISOR 09/13/2014 Office visit Yvonne Cassidy MD 09/06/2014 Nurse visit Yvonne Cassidy MD 08/28/2014 Hospital Chauncey Hogan MD 08/28/2014 Hospital Joe Thomas MD 08/23/2014 Nurse visit Yvonne Cassidy MD 08/22/2014 Surgery Joe Thomas MD 08/16/2014 Nurse visit Yvonne Cassidy MD 08/07/2014 Nurse visit Yvonne Cassidy MD 08/01/2014 Nurse visit Jessie Mock FURRIER SHOP SUPERVISOR 07/25/2014 Nurse visit Nidia Darby FURRIER SHOP SUPERVISOR 07/16/2014 Nurse visit Yvonne Cassidy MD [...] Cassidy MD 03/20/2014 Nurse visit Jessie Mock FURRIER SHOP SUPERVISOR 03/13/2014 Nurse visit Donte Hastings FURRIER SHOP SUPERVISOR 03/07/2014 Nurse visit Yvonne Cassidy MD 02/27/2014 Nurse visit Jessie Mock FURRIER SHOP SUPERVISOR 02/20/2014 Nurse visit Donte Hastings FURRIER SHOP SUPERVISOR 02/13/2014 Nurse visit Donte Hastings FURRIER SHOP SUPERVISOR 02/13/2014 Procedures Joe Thomas MD 02/07/2014 Office visit Joe Thomas MD 02/06/2014 Nurse visit Yvonne Cassidy MD 01/17/2014 Nurse visit Nidia Darby FURRIER SHOP SUPERVISOR 01/10/2014 Nurse visit Yvonne Cassidy MD 01/02/2014 Nurse visit Yvonne Cassidy MD 12/26/2013 Nurse visit Yvonne Cassidy MD 12/18/2013 Nurse visit Yvonne Cassidy MD 12/12/2013 Nurse visit Yvonne Cassidy MD 12/05/2013 Nurse visit Yvonne Cassidy MD 11/28/2013 Nurse visit Yvonne Cassidy MD 11/21/2013 Nurse visit Yvonne Cassidy MD 11/14/2013 Nurse visit Yvonne Cassidy MD 11/07/2013 Nurse visit Nidia Darby FURRIER SHOP SUPERVISOR 10/31/2013 Nurse visit Nidia Darby FURRIER SHOP SUPERVISOR 10/25/2013 Nurse visit Nidia Darby FURRIER SHOP SUPERVISOR 10/18/2013 Voided Nidia Darby FURRIER SHOP SUPERVISOR 10/10/2013 Voided Yvonne Cassidy MD 10/03/2013 [...] Mart MD 04/18/2013 Nurse visit Nidia Darby FURRIER SHOP SUPERVISOR 04/04/2013 Nurse visit Nidia Darby FURRIER SHOP SUPERVISOR 03/28/2013 Nurse visit Nidia Darby FURRIER SHOP SUPERVISOR 03/21/2013 Nurse visit Nidia Darby FURRIER SHOP SUPERVISOR 03/13/2013 Nurse visit Nidia Darby FURRIER SHOP SUPERVISOR 03/09/2013 Nurse visit Nidia Darby FURRIER SHOP SUPERVISOR 03/02/2013 Nurse visit Nidia Darby FURRIER SHOP SUPERVISOR 02/21/2013 Nurse visit Nidia Darby FURRIER SHOP SUPERVISOR 02/13/2013 Office visit Nidia Darby FURRIER SHOP SUPERVISOR 02/06/2013 Nurse visit Bria Mart MD [...] MD 10/04/2012 Nurse visit Nidia NZafar Darby FURRIER SHOP SUPERVISOR 09/27/2012 Nurse visit Bria Mart MD [...] Mart MD 06/07/2012 Nurse visit Nidia Darby FURRIER SHOP SUPERVISOR 06/07/2012 Voided Francisco J Jesus 06/01/2012 Office [...] Mart MD 09/08/2011 Office visit Jessie Mock FURRIER SHOP SUPERVISOR 09/01/2011 Nurse visit Bria Mart MD 08/21/2011 Office visit Bria Mart MD 08/12/2011 Nurse visit Bria Mart MD 08/06/2011 Office visit Bria Mart MD 07/28/2011 Nurse visit Bria Mart MD 07/21/2011 Office visit Bria Mart MD 07/16/2011 Nurse visit Brai Mart MD 07/06/2011 Nurse visit Bria Mart [...]
--- OUTSIDE RECORDS SUMMARY | 2017-05-06 17:34 | XMS REPORT ---
Author Author Yvonne Cassidy [facility] Address [address] [place], [place] [address] Care Team Providers Care Commissary Production Supervisor Name Role Phone Yvonne Cassidy PCP Allergies and Adverse Reactions Name Reaction Notes Ceftin rash Erythromycin rash PENICILLINS rash Plan of Treatment Planned Activity Comments Planned Date Planned Time Plan/Goal IMMUNOTHERAPY INJECTIONS 04/18/2015 12:00 AM IMMUNOTHERAPY INJECTIONS 03/27/2015 12:00 AM ASSAY THYROID STIM HORMONE 05/29/2015 12:00 AM IMMUNOTHERAPY INJECTIONS 01/05/2012 12:00 [...] TBS C/V MANUAL Returned 05/29/2015 12:00 AM LIPID PANEL Returned 05/29/2015 12:00 AM MAMMOGRAM BOTH BREASTS Reviewed 05/29/2015 12:00 AM SPECIMEN HANDLING OFFICE-LAB Reviewed 05/29/2015 12:00 AM BIOPSY OF VAGINA Returned 06/04/2015 12:00 AM IMMUNOTHERAPY INJECTIONS Reviewed 04/15/2011 12:00 AM IMMUNOTHERAPY INJECTIONS Reviewed 06/10/2015 12:00 AM IMMUNOTHERAPY INJECTIONS Reviewed 06/17/2015 12:00 AM IMMUNOTHERAPY INJECTIONS Reviewed 04/29/2011 12:00 [...] Reviewed 08/21/2011 12:00 AM Depo-Medrol 40 mg [facility]#[id number] Reviewed 09/08/2011 12:00 AM IMMUNOTHERAPY INJECTIONS Reviewed [...] Depo-Medrol 40 mg [facility]#[id number] Reviewed 12/01/2011 12:00 AM IMMUNOTHERAPY INJECTIONS Reviewed [...] Per 1 Mg [facility]# [address]-18 Reviewed 02/13/2013 12:00 AM Depo-Medrol, Per 80 Mg [facility]#6354-7345-14 Reviewed 06/05/2013 12:00 AM MAMMOGRAM SCREENING Returned [...] BILI 0.50 mg/dLCALCIUM 10.10 mg/dLeGFR >60 mL/min/1.73 [id number] 10.0 secsINR 1.0 PTT 28.20 secs 08/28/2014 [...] 210.0 mg/dLHDL 46.0 mg /dLLDL (CALC) 137.0 mg/dL History Of Immunizations Name Date Admin Mfg Name Mfg Code Trade Name Lot# Route Inj Vis Given Vis Pub CVX Influenza 06/02/2010 sanofi pasteur PMC Fluzone [id number] Intramuscular Left Deltoid 06/02/2010 02/25/2010 999 Influenza 05/09/2015 sanofi pasteur PMC Fluzone [id number] Intramuscular Left Deltoid 05/09/2015 02/22/2015 141 History [...] to other allergen Jun 17 2015 4:28PM Payers Insurance Name Company Name Plan Name Plan Number Policy Number Policy Group Number Start Date [facility] [id number] [place] *[place] Self Insurance [id number] N /A History of Encounters Visit Date Visit Type Provider 06/17/2015 Nurse visit Yvonne Cassidy MD 06/10/2015 Nurse visit Yvonne Cassidy MD 06/04/2015 Nurse visit Yvonne Cassidy MD 05/29/2015 Office visit Karolyn Millan EXCHANGE SPECIALIST 05/29/2015 Nurse visit Yvonne Cassidy MD 05/14/2015 Nurse visit Francisco J Jesus DO 05/09/2015 Nurse visit Yvonne Cassidy MD 04/30/2015 Nurse visit Yvonne Cassidy MD 04/23/2015 Nurse visit Yvonne Cassidy MD 04/18/2015 Nurse visit Nidia Darby EXCHANGE SPECIALIST 04/09/2015 Nurse visit Yvonne Cassidy MD 04/01/2015 Nurse visit Yvonne Cassidy MD 03/27/[address] Cody Horvath MD 03/25/2015 [facility] Darin Park MD 03/19/2015 Nurse visit Yvonne Cassidy MD 03/19/2015 Office visit Nidia Darby EXCHANGE SPECIALIST 03/04/2015 Nurse visit Yvonne Cassidy MD 02/25/2015 [...] Cassidy MD 12/31/2014 Office visit Karolyn Millan EXCHANGE SPECIALIST 12/24/2014 Nurse visit Yvonne Cassidy MD 12/17/2014 [...] Cassidy MD 10/11/2014 Office visit Karolyn Millan EXCHANGE SPECIALIST 10/09/2014 Nurse visit Yvonne Cassidy MD 10/04/2014 Nurse visit Yvonne Cassidy MD 09/19/2014 Surgery Karolyn Millan EXCHANGE SPECIALIST 09/13/2014 Office visit Yvonne Cassidy MD 09/06/2014 Nurse visit Yvonne Cassidy MD 08/28/2014 Hospital Chauncey Hogan MD 08/28/2014 [facility] Joe Thomas MD 08/23/2014 Nurse visit Yvonne Cassidy MD 08/22/2014 Surgery Joe Thomas MD 08/16/2014 Nurse visit Yvonne Cassidy MD 08/07/2014 Nurse visit Yvonne Cassidy MD 08/01/2014 Nurse visit Jessie Mock EXCHANGE SPECIALIST 07/25/2014 Nurse visit Nidia Darby EXCHANGE SPECIALIST 07/16/2014 Nurse visit Yvonne Cassidy MD 07/09/2014 [...] Cassidy MD 03/20/2014 Nurse visit Jessie Mock EXCHANGE SPECIALIST 03/13/2014 Nurse visit Donte Hastings EXCHANGE SPECIALIST 03/07/2014 Nurse visit Yvonne Cassidy MD 02/27/2014 Nurse visit Jessie Mock EXCHANGE SPECIALIST 02/20/2014 Nurse visit Donte Hastings EXCHANGE SPECIALIST 02/13/2014 Nurse visit Donte Hastings EXCHANGE SPECIALIST 02/13/2014 Procedures Joe Thomas MD 02/07/2014 Office visit Joe Thomas MD 02/06/2014 Nurse visit Yvonne Cassidy MD 01/17/2014 Nurse visit Nidia Darby EXCHANGE SPECIALIST 01/10/2014 Nurse visit Yvonne Cassidy MD 01/02/2014 Nurse visit Yvonne Cassidy MD 12/26/2013 Nurse visit Yvonne Cassidy MD 12/18/2013 Nurse visit Yvonne Cassidy MD 12/12/2013 Nurse visit Yvonne Cassidy MD 12/05/2013 Nurse visit Yvonne Cassidy MD 11/28/2013 Nurse visit Yvonne Cassidy MD 11/21/2013 Nurse visit Yvonne Cassidy MD 11/14/2013 Nurse visit Yvonne Cassidy MD 11/07/2013 Nurse visit Nidia Darby EXCHANGE SPECIALIST 10/31/2013 Nurse visit Nidia Darby EXCHANGE SPECIALIST 10/25/2013 Nurse visit Nidia Darby EXCHANGE SPECIALIST 10/18/2013 Voided Nidia Darby EXCHANGE SPECIALIST 10/10/2013 Voided Yvonne Cassidy MD 10/03/2013 Nurse [...] Mart MD 04/18/2013 Nurse visit Nidia Darby EXCHANGE SPECIALIST 04/04/2013 Nurse visit Nidia Darby EXCHANGE SPECIALIST 03/28/2013 Nurse visit Nidia Darby EXCHANGE SPECIALIST 03/21/2013 Nurse visit Nidia Darby EXCHANGE SPECIALIST 03/13/2013 Nurse visit Nidia Darby EXCHANGE SPECIALIST 03/09/2013 Nurse visit Nidia Darby EXCHANGE SPECIALIST 03/02/2013 Nurse visit Nidia Darby EXCHANGE SPECIALIST 02/21/2013 Nurse visit Nidia Darby EXCHANGE SPECIALIST 02/13/2013 Office visit Nidia Darby EXCHANGE SPECIALIST 02/06/2013 Nurse visit Bria Mart MD 01/31/2013 [...] Mart MD 10/04/2012 Nurse visit Nidia Darby EXCHANGE SPECIALIST 09/27/2012 Nurse visit Bria Mart MD 09/22/2012 [...] Mart MD 06/07/2012 Nurse visit Nidia Darby EXCHANGE SPECIALIST 06/07/2012 Voided Francisco J Jesus DO 06/01/2012 [...] Mart MD 09/08/2011 Office visit Jessie Mock EXCHANGE SPECIALIST 09/01/2011 Nurse visit Bria Mart MD 08/21/2011 [...]
--- OUTSIDE RECORDS SUMMARY | 2017-05-06 17:38 | XMS REPORT ---
Author Author Yvonne Cassidy [facility] Address [address] [place], [place] [id number] Care Team Providers Care Strand Buncher Fine Wire Name Role Phone Yvonne Cassidy PCP Allergies [...] Depo-Medrol 40 mg [facility]#[id number] Reviewed 03/02/2016 12:00 AM IMMUNOTHERAPY INJECTIONS Reviewed [...] Depo-Medrol 40 mg [facility]#[id number] Reviewed 12/01/2011 12:00 AM IMMUNOTHERAPY INJECTIONS Reviewed [...] 1 Mg [facility]# [address]-75 Reviewed 02/13/2013 12:00 AM Depo-Medrol, Per 80 Mg [facility]#0964-0840-43 Reviewed 06/05/2013 12:00 AM MAMMOGRAM SCREENING Returned [...] BILI 0.50 mg/dLCALCIUM 10.10 mg/dLeGFR >60 mL/min/1.73 [id number] 10.0 secsINR 1.0 PTT 28.20 secs 08/28/2014 [...] CVX Influenza 06/02/2010 sanofi pasteur PMC Fluzone [id number] Intramuscular Left Deltoid 06/02/2010 02/25/2010 999 Influenza 05/09/2015 sanofi pasteur PMC Fluzone [id number] Intramuscular Left Deltoid 05/09/2015 02/22/2015 141 History [...] Policy Number [facility] Group Number [id number] Self [facility] Fund *INVALID State Self Insurance [id number] N/A Comp [place] [id number] Wednesday, 2015 History of Encounters Visit Date Visit Type Provider 03/11/2016 Nurse visit Yvonne Cassidy MD 03/04/2016 Office visit Jessie Mock GRAB HOOKER 03/02/2016 Nurse visit Yvonne Cassidy MD 02/19/2016 Nurse visit Yvonne Cassidy MD 02/12/2016 Office visit Jessie Mock GRAB HOOKER 02/03/2016 Nurse visit Yvonne Cassidy MD 01/27/2016 Nurse visit Yvonne Cassidy MD 01/15/2016 Nurse visit Yvonne Cassidy MD 01/08/2016 Office visit Jessie Mock GRAB HOOKER 12/25/2015 Nurse visit Yvonne Cassidy MD 12/09/2015 Nurse visit Yvonne Cassidy MD 12/02/2015 Nurse visit Yvonne Cassidy MD 11/29/2015 Nurse visit Donte Hastings APRN 11/28/2015 Nurse visit Jessie Mock GRAB HOOKER 11/27/2015 Office visit Jessie Mock GRAB HOOKER 11/25/2015 Office visit Donte Darling GRAB HOOKER 11/18/2015 Nurse visit Donte Darling GRAB HOOKER 11/11/2015 Nurse visit Jessie Mock GRAB HOOKER 11/04/2015 Nurse visit Donte Hastings GRAB HOOKER 10/29/2015 Office visit Jessie Mock GRAB HOOKER 10/28/2015 Nurse visit Jessie Mock GRAB HOOKER 10/21/2015 Nurse visit Glenn Tejeda MD 10/15/2015 Nurse visit Francisco J Jesus DO 10/09/2015 Nurse visit Glenn Tejeda MD 10/02/2015 Office visit April Atkinson GRAB HOOKER 10/01/2015 Nurse visit Jessie Nish GRAB HOOKER 09/11/2015 Nurse visit Yvonne Cassidy MD 09/05/2015 [...] Office visit 05/29/2015 Office visit Karolyn Millan GRAB HOOKER 05/29/2015 Nurse visit Yvonne Cassidy MD 05/14/2015 Nurse visit Francisco J Jesus DO 05/09/2015 Nurse visit Yvonne Cassidy MD 04/30/2015 Nurse visit Yvonne Cassidy MD 04/23/2015 Nurse visit Yvonne Cassidy MD 04/18/2015 Nurse visit Nidia Darby GRAB HOOKER 04/09/2015 Nurse visit Yvonne Cassidy MD 04/01/2015 Nurse visit Yvonne Cassidy MD 03/27/[address] Cody Horvath MD 03/25/2015 [facility] Alexander [place] MD 03/19/2015 Nurse visit Yvonne Cassidy MD 03/19/2015 Office visit Nidia Darby GRAB HOOKER 03/04/2015 Nurse visit Yvonne Cassidy MD 02/25/2015 [...] Office visit 12/31/2014 Office visit Karolyn Millan GRAB HOOKER 12/24/2014 Nurse visit Yvonne Cassidy MD 12/17/2014 [...] Cassidy MD 10/11/2014 Office visit Karolyn Millan GRAB HOOKER 10/09/2014 Nurse visit Yvonne Cassidy MD 10/04/2014 Nurse visit Yvonne Cassidy MD 09/19/2014 Surgery Karolyn Millan GRAB HOOKER 09/13/2014 Office visit Yvonne Cassidy MD 09/06/2014 Nurse visit Yvonne Cassidy MD 08/28/2014 [facility] Chauncey Hogan MD 08/28/2014 [facility] Joe Thomas MD 08/23/2014 Nurse visit Yvonne Cassidy MD 08/22/2014 Surgery Joe Thomas MD 08/16/2014 Nurse visit Yvonne Cassidy MD 08/07/2014 Nurse visit Yvonne Cassidy MD 08/01/2014 Nurse visit Jessie Mock GRAB HOOKER 07/25/2014 Nurse visit Nidia Darby GRAB HOOKER 07/16/2014 Nurse visit Yvonne Cassidy MD 07/09/2014 [...] Cassidy MD 03/20/2014 Nurse visit Jessie Mock GRAB HOOKER 03/13/2014 Nurse visit Donte Hastings GRAB HOOKER 03/07/2014 Nurse visit Yvonne Cassidy MD 02/27/2014 Nurse visit Jessie Mock GRAB HOOKER 02/20/2014 Nurse visit Donte Hastings GRAB HOOKER 02/13/2014 Nurse visit Donte Hastings GRAB HOOKER 02/13/2014 Procedures Joe Thomas MD 02/07/2014 Office visit Joe Thomas MD 02/06/2014 Nurse visit Yvonne Cassidy MD 01/17/2014 Nurse visit Nidia Darby GRAB HOOKER 01/10/2014 Nurse visit Yvonne Cassidy MD 01/02/2014 Nurse visit Yvonne Cassidy MD 12/26/2013 Nurse visit Yvonne Cassidy MD 12/18/2013 Nurse visit Yvonne Cassidy MD 12/12/2013 Nurse visit Yvonne Cassidy MD 12/05/2013 Nurse visit Yvonne Cassidy MD 11/28/2013 Nurse visit Yvonne Cassidy MD 11/21/2013 Nurse visit Yvonne Cassidy MD 11/14/2013 Nurse visit Yvonne Cassidy MD 11/07/2013 Nurse visit Nidia Darby GRAB HOOKER 10/31/2013 Nurse visit Nidia Darby GRAB HOOKER 10/25/2013 Nurse visit Nidia Darby GRAB HOOKER 10/18/2013 Voided Nidia Darby GRAB HOOKER 10/10/2013 Voided Yvonne Cassidy MD 10/03/2013 Nurse [...] Mart MD 04/18/2013 Nurse visit Nidia Darby GRAB HOOKER 04/04/2013 Nurse visit Nidia Darby GRAB HOOKER 03/28/2013 Nurse visit Nidia Darby GRAB HOOKER 03/21/2013 Nurse visit Nidia Darby GRAB HOOKER 03/13/2013 Nurse visit Nidia Darby GRAB HOOKER 03/09/2013 Nurse visit Nidia Darby GRAB HOOKER 03/02/2013 Nurse visit Nidia Darby GRAB HOOKER 02/21/2013 Nurse visit Nidia Darby GRAB HOOKER 02/13/2013 Office visit Nidia Darby GRAB HOOKER 02/06/2013 Nurse visit Bria Mart MD 01/31/2013 [...] Mart MD 10/04/2012 Nurse visit Nidia Darby GRAB HOOKER 09/27/2012 Nurse visit Bria Mart MD 09/22/2012 [...] Mart MD 06/07/2012 Nurse visit Nidia Darby GRAB HOOKER 06/07/2012 Voided Francisco J Jesus DO 06/01/2012 [...] visit Bria Mart MD 12/18/2011 Nurse visit Brai Mart MD 12/08/2011 Nurse visit Bria Mart [...] visit Bria Mart MD 07/16/2011 Nurse visit Bira Mart MD 07/06/2011 Nurse visit Bria Mart [...]
--- OUTSIDE RECORDS SUMMARY | 2017-05-06 17:42 | XMS REPORT ---
Author Author Francisco J Jesus [facility] Address [address] [place], [place] [address] Care Team Providers Care Industrial Court Magistrate Name Role Phone Francisco J Jesus PCP Unavailable Allergies and Adverse Reactions Name Reaction Notes Ceftin rash Erythromycin rash PENICILLINS rash Plan of Treatment Planned Activity Comments Planned Date Planned Time Plan/Goal IMMUNOTHERAPY INJECTIONS 04/18/2015 12:00 AM IMMUNOTHERAPY INJECTIONS 04/30/2015 12:00 AM IMMUNOTHERAPY INJECTIONS 03/27/2015 12:00 AM [...] Reviewed 03/25/2011 12:00 AM IMMUNOTHERAPY INJECTIONS Reviewed 05/09/2015 12:00 [...] Reviewed 08/21/2011 12:00 AM Depo-Medrol 40 mg [facility]#[id number] Reviewed 09/08/2011 12:00 AM IMMUNOTHERAPY INJECTIONS Reviewed [...] Reviewed 11/27/2011 12:00 AM Depo-Medrol 40 mg [facility]#[id number] Reviewed 12/01/2011 12:00 AM IMMUNOTHERAPY INJECTIONS Reviewed [...] 02/13/2013 12:00 AM Decadron, Per 1 Mg [facility]# [address]-08 Reviewed 02/13/2013 12:00 AM Depo-Medrol, Per 80 Mg [facility]#8767-4418-50 Reviewed 06/05/2013 12:00 AM MAMMOGRAM SCREENING Returned [...] BILI 0.50 mg/dLCALCIUM 10.10 mg/dLeGFR >60 mL/min/1.73 [id number] 10.0 secsINR 1.0 PTT 28.20 secs 08/28/2014 [...] CVX Influenza 06/02/2010 sanofi pasteur PMC Fluzone [id number] Intramuscular Left Deltoid 06/02/2010 02/25/2010 999 Influenza 05/09/2015 sanofi pasteur PMC Fluzone [id number] Intramuscular Left Deltoid 05/09/2015 02/22/2015 141 History [...] to other allergen May 14 2015 3:48PM Payers Insurance Name Company Name Plan Name Plan Number Policy Number Policy Group Number [id number] [place] Self [place] *INVALID [place] Self Insurance [id number] N /A History of Encounters Visit Date Visit Type Provider 05/14/2015 Nurse visit Francisco J Jesus DO 05/09/2015 Nurse visit Yvonne Cassidy MD 04/30/2015 Nurse visit Yvonne Cassidy MD 04/23/2015 Nurse visit Yvonne Cassidy MD 04/18/2015 Nurse visit Nidia Darby CORPORATE EXECUTIVE CHEF 04/09/2015 Nurse visit Yvonne Cassidy MD 04/01/2015 Nurse visit Yvonne Cassidy MD 03/27/[address] Cody Horvath MD 03/19/2015 Nurse visit Yvonne Cassidy MD 03/19/2015 Office visit Nidia Darby CORPORATE EXECUTIVE CHEF 03/04/2015 Nurse visit Yvonne Cassidy MD 02/25/2015 [...] Cassidy MD 12/31/2014 Office visit Karolyn Millan CORPORATE EXECUTIVE CHEF 12/24/2014 Nurse visit Yvonne Cassidy MD 12/17/2014 Nurse visit Yvonne Cassidy MD 12/13/2014 Nurse visit Yvonne Cassidy MD 11/28/2014 Nurse visit Yvonne Cassidy MD 11/19/2014 Nurse visit Yvonne Cassidy MD 11/12/2014 Nurse visit Yvonne Cassidy MD 11/05/2014 Nurse visit Yvonne Cassidy MD 11/05/2014 [facility] Darin [place] MD 10/29/2014 Nurse visit Yvonne Cassidy MD 10/24/2014 Nurse visit Yvonne Cassidy MD 10/15/2014 Nurse visit Yvonne Cassidy MD 10/11/2014 Office visit Karolyn Millan CORPORATE EXECUTIVE CHEF 10/09/2014 Nurse visit Yvonne Cassidy MD 10/04/2014 Nurse visit Yvonne Cassidy MD 09/19/2014 Surgery Karolyn Millan CORPORATE EXECUTIVE CHEF 09/13/2014 Office visit Yvonne Cassidy MD 09/06/2014 Nurse visit Yvonne Cassidy MD 08/28/2014 [facility] Chauncey Hogan MD 08/28/2014 [facility] Joe Thomas MD 08/23/2014 Nurse visit Yvonne Cassidy MD 08/22/2014 Surgery Joe Thomas MD 08/16/2014 Nurse visit Yvonne Cassidy MD 08/07/2014 Nurse visit Yvonne Cassidy MD 08/01/2014 Nurse visit Jessie Mock CORPORATE EXECUTIVE CHEF 07/25/2014 Nurse visit Nidia Darby CORPORATE EXECUTIVE CHEF 07/16/2014 Nurse visit Yvonne Cassidy MD 07/09/2014 [...] Cassidy MD 03/20/2014 Nurse visit Jessie Mock CORPORATE EXECUTIVE CHEF 03/13/2014 Nurse visit Donte Hastings CORPORATE EXECUTIVE CHEF 03/07/2014 Nurse visit Yvonne Cassidy MD 02/27/2014 Nurse visit Jessie Mock CORPORATE EXECUTIVE CHEF 02/20/2014 Nurse visit Donte Hastings CORPORATE EXECUTIVE CHEF 02/13/2014 Nurse visit Donte Hastings CORPORATE EXECUTIVE CHEF 02/13/2014 Procedures Joe Thomas MD 02/07/2014 Office visit Joe Thomas MD 02/06/2014 Nurse visit Yvonne Cassidy MD 01/17/2014 Nurse visit Nidia Darby CORPORATE EXECUTIVE CHEF 01/10/2014 Nurse visit Yvonne Cassidy MD 01/02/2014 Nurse visit Yvonne Cassidy MD 12/26/2013 Nurse visit Yvonne Cassidy MD 12/18/2013 Nurse visit Yvonne Cassidy MD 12/12/2013 Nurse visit Yvonne Cassidy MD 12/05/2013 Nurse visit Yvonne Cassidy MD 11/28/2013 Nurse visit Yvonne Cassidy MD 11/21/2013 Nurse visit Yvonne Cassidy MD 11/14/2013 Nurse visit Yvonne Cassidy MD 11/07/2013 Nurse visit Nidia Darby CORPORATE EXECUTIVE CHEF 10/31/2013 Nurse visit Nidia Darby CORPORATE EXECUTIVE CHEF 10/25/2013 Nurse visit Nidia Darby CORPORATE EXECUTIVE CHEF 10/18/2013 Voided Nidia Darby CORPORATE EXECUTIVE CHEF 10/10/2013 Voided Yvonne Cassidy MD 10/03/2013 Nurse [...] Mart MD 04/18/2013 Nurse visit Nidia Darby CORPORATE EXECUTIVE CHEF 04/04/2013 Nurse visit Nidia Darby CORPORATE EXECUTIVE CHEF 03/28/2013 Nurse visit Nidia Darby CORPORATE EXECUTIVE CHEF 03/21/2013 Nurse visit Nidia Darby CORPORATE EXECUTIVE CHEF 03/13/2013 Nurse visit Nidia Darby CORPORATE EXECUTIVE CHEF 03/09/2013 Nurse visit Nidia Darby CORPORATE EXECUTIVE CHEF 03/02/2013 Nurse visit Nidia Darby CORPORATE EXECUTIVE CHEF 02/21/2013 Nurse visit Nidia Darby CORPORATE EXECUTIVE CHEF 02/13/2013 Office visit Nidia Darby CORPORATE EXECUTIVE CHEF 02/06/2013 Nurse visit Bria Mart MD 01/31/2013 [...] Mart MD 10/04/2012 Nurse visit Nidia Darby CORPORATE EXECUTIVE CHEF 09/27/2012 Nurse visit Bria Mart MD 09/22/2012 [...] Mart MD 06/07/2012 Nurse visit Nidia Darby CORPORATE EXECUTIVE CHEF 06/07/2012 Voided Francisco J Jesus DO 06/01/2012 [...] Mart MD 09/08/2011 Office visit Jessie Mock CORPORATE EXECUTIVE CHEF 09/01/2011 Nurse visit Bria Mart MD 08/21/2011 [...]
--- OUTSIDE RECORDS SUMMARY | 2017-05-06 17:45 | XMS REPORT ---
Author Author Yvonne Cassidy [facility] Address [address] [place], [place] [id number] Care Team Providers Care Branch Service Leader Name Role Phone Yvonne Cassidy PCP Allergies [...] Reviewed 08/21/2011 12:00 AM Depo-Medrol 40 mg [facility]#[id number] Reviewed 09/08/2011 12:00 AM IMMUNOTHERAPY INJECTIONS Reviewed [...] Reviewed 11/27/2011 12:00 AM Depo-Medrol 40 mg [facility]#[id number] Reviewed 12/01/2011 12:00 AM IMMUNOTHERAPY INJECTIONS Reviewed [...] Mg [facility]# [address]-04 Reviewed 02/13/2013 12:00 AM Depo-Medrol, Per 80 Mg [facility]#7726-1720-61 Reviewed 06/05/2013 12:00 AM MAMMOGRAM SCREENING Returned [...] BILI 0.50 mg/dLCALCIUM 10.10 mg/dLeGFR >60 mL/min/1.73 [id number] 10.0 secsINR 1.0 PTT 28.20 secs 08/28/2014 [...] CVX Influenza 06/02/2010 sanofi pasteur PMC Fluzone [id number] Intramuscular Left Deltoid 06/02/2010 02/25/2010 999 History [...] Policy Number Policy Group Number Start Date [facility] [id number] [place] Self Insurance Fund *INVALID [place] Self Insurance [id number] N /A History of Encounters Visit Date Visit Type Provider 04/30/2015 Nurse visit Yvonne Cassidy MD 04/23/2015 Nurse visit Yvonne Cassidy MD 04/18/2015 Nurse visit Nidia Darby DIRECTOR OF SOCIAL WORK 04/09/2015 Nurse visit Yvonne Cassidy MD 04/01/2015 Nurse visit Yvonne Cassidy MD 03/27/[address] Cody Horvath MD 03/19/2015 Nurse visit Yvonne Cassidy MD 03/19/2015 Office visit Nidia Darby DIRECTOR OF SOCIAL WORK 03/04/2015 Nurse visit Yvonne Cassidy MD 02/25/2015 [...] Cassidy MD 12/31/2014 Office visit Karolyn Millan DIRECTOR OF SOCIAL WORK 12/24/2014 Nurse visit Yvonne Cassidy MD 12/17/2014 [...] 10/11/2014 Office visit Karolyn Millan DIRECTOR OF SOCIAL WORK 10/09/2014 Nurse visit Yvonne Cassidy MD 10/04/2014 Nurse visit Yvonne Cassidy MD 09/19/2014 Surgery Karolyn Millan DIRECTOR OF SOCIAL WORK 09/13/2014 Office visit Yvonne Cassidy MD 09/06/2014 Nurse visit Yvonne Cassidy MD 08/28/2014 [facility] Chauncey Hogan MD 08/28/2014 [facility] Joe Thomas MD 08/23/2014 Nurse visit Yvonne Cassidy MD 08/22/2014 Surgery Joe Thomas MD 08/16/2014 Nurse visit Yvonne Cassidy MD 08/07/2014 Nurse visit Yvonne Cassidy MD 08/01/2014 Nurse visit Jessie Mock DIRECTOR OF SOCIAL WORK 07/25/2014 Nurse visit Nidia Darby DIRECTOR OF SOCIAL WORK 07/16/2014 Nurse visit Yvonne Cassidy MD 07/09/2014 [...] 03/20/2014 Nurse visit Jessie Mock DIRECTOR OF SOCIAL WORK 03/13/2014 Nurse visit Donte Hastings DIRECTOR OF SOCIAL WORK 03/07/2014 Nurse visit Yvonne Cassidy MD 02/27/2014 Nurse visit Jessie Mock DIRECTOR OF SOCIAL WORK 02/20/2014 Nurse visit Donte Hastings DIRECTOR OF SOCIAL WORK 02/13/2014 Nurse visit Donte Hastings DIRECTOR OF SOCIAL WORK 02/13/2014 Procedures Joe Thomas MD 02/07/2014 Office visit Joe Thomas MD 02/06/2014 Nurse visit Yvonne Cassidy MD 01/17/2014 Nurse visit Nidia Darby DIRECTOR OF SOCIAL WORK 01/10/2014 Nurse visit Yvonne Cassidy MD 01/02/2014 Nurse visit Yvonne Cassidy MD 12/26/2013 Nurse visit Yvonne Cassidy MD 12/18/2013 Nurse visit Yvonne Cassidy MD 12/12/2013 Nurse visit Yvonne Cassidy MD 12/05/2013 Nurse visit Yvonne Cassidy MD 11/28/2013 Nurse visit Yvonne Cassidy MD 11/21/2013 Nurse visit Yvonne Cassidy MD 11/14/2013 Nurse visit Yvonne Cassidy MD 11/07/2013 Nurse visit Nidia Darby DIRECTOR OF SOCIAL WORK 10/31/2013 Nurse visit Nidia Darby DIRECTOR OF SOCIAL WORK 10/25/2013 Nurse visit Nidia Darby DIRECTOR OF SOCIAL WORK 10/18/2013 Voided Nidia Darby DIRECTOR OF SOCIAL WORK 10/10/2013 Voided Yvonne Cassidy MD 10/03/2013 Nurse [...] Yvonne Cassidy MD 07/04/2013 Nurse visit Yvonne Casisdy MD 06/26/2013 Nurse visit Yvonne Cassidy MD 06/19/2013 Nurse visit Yovnne Cassidy MD 06/14/2013 Office visit Yvonne Cassidy [...] 04/18/2013 Nurse visit Nidia Darby DIRECTOR OF SOCIAL WORK 04/04/2013 Nurse visit Nidia Darby DIRECTOR OF SOCIAL WORK 03/28/2013 Nurse visit Nidia Darby DIRECTOR OF SOCIAL WORK 03/21/2013 Nurse visit Nidia Darby DIRECTOR OF SOCIAL WORK 03/13/2013 Nurse visit Nidia Darby DIRECTOR OF SOCIAL WORK 03/09/2013 Nurse visit Nidia Darby DIRECTOR OF SOCIAL WORK 03/02/2013 Nurse visit Nidia Darby DIRECTOR OF SOCIAL WORK 02/21/2013 Nurse visit Nidia Darby DIRECTOR OF SOCIAL WORK 02/13/2013 Office visit Nidia Darby DIRECTOR OF SOCIAL WORK 02/06/2013 Nurse visit Bria Mart MD 01/31/2013 [...] 10/04/2012 Nurse visit Nidia Darby DIRECTOR OF SOCIAL WORK 09/27/2012 Nurse visit Bria Mart MD 09/22/2012 [...] 06/07/2012 Nurse visit Nidia Darby DIRECTOR OF SOCIAL WORK 06/07/2012 Voided Francisco J Jesus DO 06/01/2012 [...] Bria Mart MD 02/08/2012 Nurse visit Bria Mrat MD 02/02/2012 Nurse visit Bria Mart MD [...] 09/08/2011 Office visit Jessie Mock DIRECTOR OF SOCIAL WORK 09/01/2011 Nurse visit Bria Mart MD 08/21/2011 Office visit Bria Mart MD 08/12/2011 Nurse visit Bria Mart MD 08/06/2011 Office visit Bria Mart MD 07/28/2011 Nurse visit Bria Mart MD 07/21/2011 Office visit Bria Mart MD 07/16/2011 Nurse visit Bria Mart MD 07/06/2011 Nurse visit Bria Mart MD 06/17/2011 Nurse visit Bira Mart MD 06/09/2011 Nurse visit Bria Mart MD 06/03/2011 Nurse visit Brai Mart MD 05/27/2011 Nurse visit Bria Mart [...]
--- OUTSIDE RECORDS SUMMARY | 2017-05-06 17:50 | XMS REPORT ---
Author Author Yvonne Cassidy Organization [facility] Address [address] [place], [place] [id number] Care Team Providers Care Bulk Driver Name Role Phone Yvonne Cassidy PCP Yvonne [...] Reviewed 08/21/2011 12:00 AM Depo-Medrol 40 mg [facility]#[id number] Reviewed 03/02/2016 12:00 AM IMMUNOTHERAPY INJECTIONS Reviewed [...] Reviewed 11/27/2011 12:00 AM Depo-Medrol 40 mg [facility]#[id number] Reviewed 12/01/2011 12:00 AM IMMUNOTHERAPY INJECTIONS Reviewed [...] 02/13/2013 12:00 AM Decadron, Per 1 Mg [facility]# [id number] Reviewed 02/13/2013 12:00 AM Depo-Medrol, Per 80 Mg [facility]#[id number] Reviewed 06/05/2013 12:00 AM MAMMOGRAM SCREENING Reviewed [...] CVX Influenza 06/02/2010 sanofi pasteur PMC Fluzone [id number] Intramuscular Left Deltoid 06/02/2010 02/25/2010 999 Influenza 05/09/2015 sanofi pasteur PMC Fluzone [id number] Intramuscular Left Deltoid 05/09/2015 02/22/2015 141 Pneumococcal 06/29/2016 [facility] Prevnar 13 [id number] Intramuscular Right Deltoid 06/29/2016 09/14/2012 133 Zostavax [...] to other allergen Mar 01 2017 4:07PM Payers Insurance Name Company Name Plan Name Plan Number Policy Number Policy Group Number Start Date [facility] [id number] June [facility] Self Insurance Fund *INVALID State Self Insurance [id number] N/A Comp [place] [id number] Wednesday, 2015 History of Encounters Visit Date Visit Type Provider 03/01/2017 Office visit Yvonne Cassidy MD 02/23/2017 [...] Cassidy MD 11/02/2016 Nurse visit Donte Hastings ROADS SUPERINTENDENT 10/28/2016 Nurse visit Yvonne Cassidy MD 10/06/2016 [...] Cassidy MD 07/14/2016 Nurse visit Donte Hastings ROADS SUPERINTENDENT 07/06/2016 Nurse visit Yvonne Cassidy MD 06/29/2016 Nurse visit Yvonne Cassidy MD 06/24/2016 Nurse visit Yvonne Cassidy MD 06/16/2016 Office visit Yvonne Cassidy MD 06/14/2016 [facility] MD 06/09/2016 Nurse visit Yvonne Cassidy MD 06/02/2016 Office visit 06/02/2016 Office visit Karolyn Millan ROADS SUPERINTENDENT 06/01/2016 Nurse visit Yvonne Cassidy MD 05/27/2016 Nurse visit Yvonne Cassidy MD 05/11/2016 Nurse visit Yvonne Cassidy MD 05/05/2016 Nurse visit Yvonne Cassidy MD 04/29/2016 Nurse visit Yvonne Cassidy MD 04/23/2016 Office visit Jessie Mock ROADS SUPERINTENDENT 04/13/2016 Nurse visit Yvonne Cassidy MD 04/07/2016 Nurse visit Yvonne Cassidy MD 04/01/2016 Office visit Jessie Mock ROADS SUPERINTENDENT 03/26/2016 Nurse visit Yvonne Cassidy MD 03/17/2016 Nurse visit Yvonne Cassidy MD 03/11/2016 Nurse visit Yvonne Cassidy MD 03/04/2016 Office visit Jessie Mock ROADS SUPERINTENDENT 03/02/2016 Nurse visit Yvonne Cassidy MD 02/19/2016 Nurse visit Yvonne Cassidy MD 02/12/2016 Office visit Jessie Mock ROADS SUPERINTENDENT 02/03/2016 Nurse visit Yvonne Cassidy MD 01/27/2016 Nurse visit Yvonne Cassidy MD 01/15/2016 Nurse visit Yvonen Cassidy MD 01/08/2016 Office visit Jessie Mock ROADS SUPERINTENDENT 12/25/2015 Nurse visit Yvonne Cassidy MD 12/09/2015 Nurse visit Yvonne Cassidy MD 12/02/2015 Nurse visit Yvonne Cassidy MD 11/29/2015 Nurse visit Donte Gerberran ROADS SUPERINTENDENT 11/28/2015 Nurse visit Jessie Mock ROADS SUPERINTENDENT 11/27/2015 Office visit Jessie Mock ROADS SUPERINTENDENT 11/25/2015 Office visit Donte Gerberran ROADS SUPERINTENDENT 11/18/2015 Nurse visit Donte Hastings ROADS SUPERINTENDENT 11/11/2015 Nurse visit Jessie Mock ROADS SUPERINTENDENT 11/04/2015 Nurse visit Donte Gerberran ROADS SUPERINTENDENT 10/29/2015 Office visit Jessie Mock ROADS SUPERINTENDENT 10/28/2015 Nurse visit Jessie Mock ROADS SUPERINTENDENT 10/21/2015 Nurse visit Glenn Tejeda MD 10/15/2015 Nurse visit Francisco J Jesus DO 10/09/2015 Nurse visit Glenn Tejeda MD 10/02/2015 Office visit April Atkinson ROADS SUPERINTENDENT 10/01/2015 Nurse visit Jessie Mock ROADS SUPERINTENDENT 09/11/2015 Nurse visit Yvonne Cassidy MD 09/05/2015 [...] Office visit 05/29/2015 Office visit Karolyn Millan ROADS SUPERINTENDENT 05/29/2015 Nurse visit Yvonne Cassidy MD 05/14/2015 Nurse visit Francisco J Jesus DO 05/09/2015 Nurse visit Yvonne Cassidy MD 04/30/2015 Nurse visit Yvonne Cassidy MD 04/23/2015 Nurse visit Yvonne Cassidy MD 04/18/2015 Nurse visit Nidia Darby ROADS SUPERINTENDENT 04/09/2015 Nurse visit Yvonne Cassidy MD 04/01/2015 Nurse visit Yvonne Cassidy MD 03/27/[address] Cody Horvath MD 03/25/2015 [facility] MD 03/19/2015 Nurse visit Yvonne Cassidy MD 03/19/2015 Office visit Nidia Darby ROADS SUPERINTENDENT 03/04/2015 Nurse visit Yvonne Cassidy MD 02/25/2015 [...] Office visit 12/31/2014 Office visit Karolyn Millan ROADS SUPERINTENDENT 12/24/2014 Nurse visit Yvonne Cassidy MD 12/17/2014 [...] Cassidy MD 10/11/2014 Office visit Karolyn Millan ROADS SUPERINTENDENT 10/09/2014 Nurse visit Yvonne Cassidy MD 10/04/2014 Nurse visit Yvonne Cassidy MD 09/19/2014 Surgery Karolyn Millan ROADS SUPERINTENDENT 09/13/2014 Office visit Yvonne Cassidy MD 09/06/2014 Nurse visit Yvonne Cassidy MD 08/28/2014 [facility] Chauncey Hogan MD 08/28/2014 [facility] Joe Thomas MD 08/23/2014 Nurse visit Yvonne Cassidy MD 08/22/2014 Surgery Joe Thomas MD 08/16/2014 Nurse visit Yvonne Cassidy MD 08/07/2014 Nurse visit Yvonne Cassidy MD 08/01/2014 Nurse visit Jessie Mock ROADS SUPERINTENDENT 07/25/2014 Nurse visit Nidia Darby ROADS SUPERINTENDENT 07/16/2014 Nurse visit Yvonne Cassidy MD 07/09/2014 [...] Cassidy MD 03/20/2014 Nurse visit Jessie Mock ROADS SUPERINTENDENT 03/13/2014 Nurse visit Donte Hastings ROADS SUPERINTENDENT 03/07/2014 Nurse visit Yvonne Cassidy MD 02/27/2014 Nurse visit Jessie Mock ROADS SUPERINTENDENT 02/20/2014 Nurse visit Donte Hastings ROADS SUPERINTENDENT 02/13/2014 Nurse visit Donte Hastings ROADS SUPERINTENDENT 02/13/2014 Procedures Joe Thomas MD 02/07/2014 Office visit Joe Thomas MD 02/06/2014 Nurse visit Yvonne Cassidy MD 01/17/2014 Nurse visit Nidia Darby ROADS SUPERINTENDENT 01/10/2014 Nurse visit Yvonne Cassidy MD 01/02/2014 Nurse visit Yvonne Cassidy MD 12/26/2013 Nurse visit Yvonne Cassidy MD 12/18/2013 Nurse visit Yvonne Cassidy MD 12/12/2013 Nurse visit Yvonne Cassidy MD 12/05/2013 Nurse visit Yvonne Cassidy MD 11/28/2013 Nurse visit Yvonne Cassidy MD 11/21/2013 Nurse visit Yvonne Cassidy MD 11/14/2013 Nurse visit Yvonne Cassidy MD 11/07/2013 Nurse visit Nidia Darby ROADS SUPERINTENDENT 10/31/2013 Nurse visit Nidia Darby ROADS SUPERINTENDENT 10/25/2013 Nurse visit Nidia Darby ROADS SUPERINTENDENT 10/18/2013 Voided Nidia Darby ROADS SUPERINTENDENT 10/10/2013 Voided Yvonne Cassidy MD 10/03/2013 Nurse [...] Mart MD 04/18/2013 Nurse visit Nidia Darby ROADS SUPERINTENDENT 04/04/2013 Nurse visit Nidia Darby ROADS SUPERINTENDENT 03/28/2013 Nurse visit Nidia Darby ROADS SUPERINTENDENT 03/21/2013 Nurse visit Nidia Darby ROADS SUPERINTENDENT 03/13/2013 Nurse visit Nidia Darby ROADS SUPERINTENDENT 03/09/2013 Nurse visit Nidia Darby ROADS SUPERINTENDENT 03/02/2013 Nurse visit Nidia Darby ROADS SUPERINTENDENT 02/21/2013 Nurse visit Nidia Darby ROADS SUPERINTENDENT 02/13/2013 Office visit Nidia Darby ROADS SUPERINTENDENT 02/06/2013 Nurse visit Bria Mart MD 01/31/2013 [...] Mart MD 10/04/2012 Nurse visit Nidia Darby ROADS SUPERINTENDENT 09/27/2012 Nurse visit Bria Mart MD 09/22/2012 [...] visit Bria Mart MD 06/14/2012 Nurse visit Bira Mart MD 06/07/2012 Nurse visit Nidia Darby ROADS SUPERINTENDENT 06/07/2012 Voided Francisco J Jesus DO 06/01/2012 Office visit Bria Mart MD 05/24/2012 Nurse visit Bria Mart MD 05/17/2012 Nurse visit Bria Mart MD 05/10/2012 Nurse visit Bria Mart MD 05/03/2012 Nurse visit Bria Mart MD 04/26/2012 Nurse visit Bria Mart MD 04/21/2012 Nurse visit Bria Mart MD 04/12/2012 Nurse visit rBia Mart MD 04/05/2012 Nurse visit Bria Mart [...] Mart MD 09/08/2011 Office visit Jessie Mock ROADS SUPERINTENDENT 09/01/2011 Nurse visit Bria Mart MD 08/21/2011 [...]
--- OUTSIDE RECORDS SUMMARY | 2017-05-06 17:53 | XMS REPORT ---
Author Author Yvonne Cassidy [facility] Address [address] [place], [place] [id number] Care Team Providers Care Mosaic Tiler Name Role Phone Yvonne Cassidy PCP Allergies [...] 12:00 AM Depo-Medrol 40 mg [facility]#[id number] Reviewed 09/08/2011 12:00 AM IMMUNOTHERAPY INJECTIONS Reviewed [...] 12:00 AM Depo-Medrol 40 mg [facility]#[id number] Reviewed 12/01/2011 12:00 AM IMMUNOTHERAPY INJECTIONS Reviewed [...] Decadron, Per 1 Mg [facility]# [id number] Reviewed 02/13/2013 12:00 AM Depo-Medrol, Per 80 Mg [facility]#[id number] Reviewed 06/05/2013 12:00 AM MAMMOGRAM SCREENING Returned [...] BILI 0.50 mg/dLCALCIUM 10.10 mg/dLeGFR >60 mL/min/1.73 [id number] 10.0 secsINR 1.0 PTT 28.20 secs 08/28/2014 [...] CVX Influenza 06/02/2010 sanofi pasteur PMC Fluzone [id number] Intramuscular Left Deltoid 06/02/2010 02/25/2010 999 Influenza 05/09/2015 sanofi pasteur PMC Fluzone [id number] Intramuscular Left Deltoid 05/09/2015 02/22/2015 141 History [...] 4:12PM Flu Vaccine May 09 2015 3:20PM Payers Insurance Name Company Name Plan Name Plan Number Policy Number Policy Group Number [id number] [place] *[place] Self Insurance [id number] N /A History of Encounters Visit Date Visit Type Provider 05/09/2015 Nurse visit Yvonne Cassidy MD 04/30/2015 Nurse visit Yvonne Cassidy MD 04/23/2015 Nurse visit Yvonne Cassidy MD 04/18/2015 Nurse visit Nidia Darby APRN 04/09/2015 Nurse visit Yvonne Cassidy MD 04/01/2015 Nurse visit Yvonne Cassidy MD 03/27/[address] Cody Horvath MD 03/19/2015 Nurse visit Yvonne Cassidy MD 03/19/2015 Office visit Nidia Darby COIN MACHINE SUPERVISOR 03/04/2015 Nurse visit Yvonne Cassidy MD 02/25/2015 Nurse visit Yvonne Cassiyd MD 02/18/2015 Nurse visit Yvonne Cassidy MD 02/11/2015 Nurse visit Yvonne Cassidy MD 02/04/2015 Nurse visit Yvonne Cassidy MD 01/28/2015 Nurse visit Yvonne Cassidy MD 01/21/2015 Nurse visit Yvonne Cassiyd MD 01/15/2015 Nurse visit Yvonne Cassidy MD 01/07/2015 Nurse visit Yvonne Cassidy MD 12/31/2014 Nurse visit Yvonne Cassidy MD 12/31/2014 Office visit Karolyn Millan COIN MACHINE SUPERVISOR 12/24/2014 Nurse visit Yvonne Cassidy MD 12/17/2014 Nurse visit Yvonne Cassidy MD 12/13/2014 Nurse visit Yvonne Cassidy MD 11/28/2014 Nurse visit Yvonne Cassidy MD 11/19/2014 Nurse visit Yvonne Cassidy MD 11/12/2014 Nurse visit Yvonne Cassidy MD 11/05/2014 Nurse visit Yvonne Cassidy MD 11/05/2014 [facility] [place] MD 10/29/2014 Nurse visit Yvonne Cassidy MD 10/24/2014 Nurse visit Yvonne Cassidy MD 10/15/2014 Nurse visit Yvonne Cassidy MD 10/11/2014 Office visit Karolyn Millan COIN MACHINE SUPERVISOR 10/09/2014 Nurse visit Yvonne Cassidy MD 10/04/2014 Nurse visit Yvonne Cassidy MD 09/19/2014 Surgery Karolyn Millan COIN MACHINE SUPERVISOR 09/13/2014 Office visit Yvonne Cassidy MD 09/06/2014 Nurse visit Yvonne Cassidy MD 08/28/2014 [facility] Chauncey Hogan MD 08/28/2014 [facility] Joe Thomas MD 08/23/2014 Nurse visit Yvonne Cassidy MD 08/22/2014 Surgery Joe Thomas MD 08/16/2014 Nurse visit Yvonne Cassidy MD 08/07/2014 Nurse visit Yvonne Cassidy MD 08/01/2014 Nurse visit Jessie Mock COIN MACHINE SUPERVISOR 07/25/2014 Nurse visit Nidia Darby COIN MACHINE SUPERVISOR 07/16/2014 Nurse visit Yvonne Cassidy MD [...] Cassidy MD 03/20/2014 Nurse visit Jessie Mock COIN MACHINE SUPERVISOR 03/13/2014 Nurse visit Donte Hastings COIN MACHINE SUPERVISOR 03/07/2014 Nurse visit Yvonne Cassidy MD 02/27/2014 Nurse visit Jessie Mock COIN MACHINE SUPERVISOR 02/20/2014 Nurse visit Donte Hastings COIN MACHINE SUPERVISOR 02/13/2014 Nurse visit Donte Hastings COIN MACHINE SUPERVISOR 02/13/2014 Procedures Joe Thomas MD 02/07/2014 Office visit Joe Thomas MD 02/06/2014 Nurse visit Yvonne Cassidy MD 01/17/2014 Nurse visit Nidia Darby COIN MACHINE SUPERVISOR 01/10/2014 Nurse visit Yvonne Cassidy MD 01/02/2014 Nurse visit Yvonne Cassidy MD 12/26/2013 Nurse visit Yvonne Cassidy MD 12/18/2013 Nurse visit Yvonne Cassidy MD 12/12/2013 Nurse visit Yvonne Cassidy MD 12/05/2013 Nurse visit Yvonne Cassidy MD 11/28/2013 Nurse visit Yvonne Cassidy MD 11/21/2013 Nurse visit Yvonne Cassidy MD 11/14/2013 Nurse visit Yvonne Cassidy MD 11/07/2013 Nurse visit Nidia Darby COIN MACHINE SUPERVISOR 10/31/2013 Nurse visit Nidia Darby COIN MACHINE SUPERVISOR 10/25/2013 Nurse visit Nidia Darby COIN MACHINE SUPERVISOR 10/18/2013 Voided Nidia Darby COIN MACHINE SUPERVISOR 10/10/2013 Voided Yvonne Cassidy MD 10/03/2013 [...] Mart MD 04/18/2013 Nurse visit Nidia Darby COIN MACHINE SUPERVISOR 04/04/2013 Nurse visit Nidia Darby COIN MACHINE SUPERVISOR 03/28/2013 Nurse visit Nidia Darby COIN MACHINE SUPERVISOR 03/21/2013 Nurse visit Nidia Darby COIN MACHINE SUPERVISOR 03/13/2013 Nurse visit Nidia Darby COIN MACHINE SUPERVISOR 03/09/2013 Nurse visit Nidia Darby COIN MACHINE SUPERVISOR 03/02/2013 Nurse visit Nidia Darby COIN MACHINE SUPERVISOR 02/21/2013 Nurse visit Nidia Darby COIN MACHINE SUPERVISOR 02/13/2013 Office visit Nidia Darby COIN MACHINE SUPERVISOR 02/06/2013 Nurse visit Bria Mart MD [...] Bria Mart MD 10/18/2012 Nurse visit Bria aMrt MD 10/11/2012 Nurse visit Bria Mart MD 10/04/2012 Nurse visit Nidia Darby COIN MACHINE SUPERVISOR 09/27/2012 Nurse visit Bria Mart MD [...] Mart MD 06/07/2012 Nurse visit Nidia Darby COIN MACHINE SUPERVISOR 06/07/2012 Voided Francisco J Jesus DO [...] Mart MD 09/08/2011 Office visit Jessie Mock COIN MACHINE SUPERVISOR 09/01/2011 Nurse visit Bria Mart MD [...]
--- OUTSIDE RECORDS SUMMARY | 2017-05-06 17:57 | XMS REPORT ---
Author Author Yvonne Cassidy Organization [facility] Address [address] [place], [place] [address] Care Team Providers Care Excellence Specialist Name Role Phone Yvonne Cassidy PCP [...] AM Depo-Medrol [address] [facility]#[id number] Reviewed 03/02/2016 12:00 AM IMMUNOTHERAPY INJECTIONS Reviewed [...] AM Depo-Medrol [address] [facility]#[id number] Reviewed 12/01/2011 12:00 AM IMMUNOTHERAPY INJECTIONS Reviewed [...] Per [address] [facility]# [id number] Reviewed 02/13/2013 12:00 AM Depo-Medrol, Per [address] [facility]#[id number] Reviewed 06/05/2013 12:00 AM MAMMOGRAM SCREENING Reviewed [...] CVX Influenza 06/02/2010 sanofi pasteur PMC Fluzone [id number] Intramuscular Left Deltoid 06/02/2010 02/25/2010 999 Influenza 05/09/2015 sanofi pasteur PMC Fluzone [id number] Intramuscular Left Deltoid 05/09/2015 02/22/2015 141 Pneumococcal 06/29/2016 Vawsa-Hruryl-Ioebeea-Praxis [facility] Prevnar 13 [id number] Intramuscular Right Deltoid 06/29/2016 09/14/2012 133 History [...] to other allergen Jul 06 2016 2:23PM Payers Insurance Name Company Name Plan Name Plan Number Policy Number Policy Group Number Start Date [facility] [id number] June [facility] Self Insurance Fund *INVALID State Self Insurance [id number] N/A Comp [place] [id number] Wednesday, 2015 History of Encounters Visit Date Visit Type Provider 07/06/2016 Nurse visit Yvonne Cassidy MD 06/29/2016 Nurse visit Yvonne Cassidy MD 06/24/2016 Nurse visit Yvonne Cassidy MD 06/16/2016 Office visit Yvonne Cassidy MD 06/09/2016 Nurse visit Yvonne Cassidy MD 06/02/2016 Office visit 06/02/2016 Office visit Karolyn Millan AUTOMOTIVE TIRE TECHNICIAN 06/01/2016 Nurse visit Yvonne Cassidy MD 05/27/2016 Nurse visit Yvonne Cassidy MD 05/11/2016 Nurse visit Yvonne Cassidy MD 05/05/2016 Nurse visit Yvonne Cassidy MD 04/29/2016 Nurse visit Yvonne Cassidy MD 04/23/2016 Office visit Jessie Mock AUTOMOTIVE TIRE TECHNICIAN 04/13/2016 Nurse visit Yvonne Cassidy MD 04/07/2016 Nurse visit Yvonne Cassidy MD 04/01/2016 Office visit Jessie Mock AUTOMOTIVE TIRE TECHNICIAN 03/26/2016 Nurse visit Yvonne Cassidy MD 03/17/2016 Nurse visit Yvonne Cassidy MD 03/11/2016 Nurse visit Yvonne Cassidy MD 03/04/2016 Office visit Jessie Mock AUTOMOTIVE TIRE TECHNICIAN 03/02/2016 Nurse visit Yvonne Cassidy MD 02/19/2016 Nurse visit Yvonne Cassidy MD 02/12/2016 Office visit Jessie Mock AUTOMOTIVE TIRE TECHNICIAN 02/03/2016 Nurse visit Yvonne Cassidy MD 01/27/2016 Nurse visit Yvonne Cassidy MD 01/15/2016 Nurse visit Yvonne Cassidy MD 01/08/2016 Office visit Jessie Mock AUTOMOTIVE TIRE TECHNICIAN 12/25/2015 Nurse visit Yvonne Cassidy MD 12/09/2015 Nurse visit Yvonne Cassidy MD 12/02/2015 Nurse visit Yvonne Cassidy MD 11/29/2015 Nurse visit Donte Hastings AUTOMOTIVE TIRE TECHNICIAN 11/28/2015 Nurse visit Jessie Mock AUTOMOTIVE TIRE TECHNICIAN 11/27/2015 Office visit Jessie Nish AUTOMOTIVE TIRE TECHNICIAN 11/25/2015 Office visit Donte Hastings AUTOMOTIVE TIRE TECHNICIAN 11/18/2015 Nurse visit Donte Hastings AUTOMOTIVE TIRE TECHNICIAN 11/11/2015 Nurse visit Jessie Mock AUTOMOTIVE TIRE TECHNICIAN 11/04/2015 Nurse visit Donte Hastings AUTOMOTIVE TIRE TECHNICIAN 10/29/2015 Office visit Jessie Nish AUTOMOTIVE TIRE TECHNICIAN 10/28/2015 Nurse visit Jessie Mock AUTOMOTIVE TIRE TECHNICIAN 10/21/2015 Nurse visit Glenn Tejeda MD 10/15/2015 Nurse visit Francisco J Jessu DO 10/09/2015 Nurse visit Glenn Tejeda MD 10/02/2015 Office visit April Atkinson AUTOMOTIVE TIRE TECHNICIAN 10/01/2015 Nurse visit Jessie Mock AUTOMOTIVE TIRE TECHNICIAN 09/11/2015 Nurse visit Yvonne Cassidy MD [...] Office visit 05/29/2015 Office visit Karolyn Millan AUTOMOTIVE TIRE TECHNICIAN 05/29/2015 Nurse visit Yvonne Csasidy MD 05/14/2015 Nurse visit Francisco J Jesus DO 05/09/2015 Nurse visit Yvonne Cassidy MD 04/30/2015 Nurse visit Yvonne Cassidy MD 04/23/2015 Nurse visit Yvonne Cassidy MD 04/18/2015 Nurse visit Nidia Darby AUTOMOTIVE TIRE TECHNICIAN 04/09/2015 Nurse visit Yvonne Cassidy MD 04/01/2015 Nurse visit Yvonne Cassidy MD 03/27/[address] Cody Horvath MD 03/25/2015 [facility] [place] MD 03/19/2015 Nurse visit Yvonne Cassidy MD 03/19/2015 Office visit Nidia Darby AUTOMOTIVE TIRE TECHNICIAN 03/04/2015 Nurse visit Yvonne Cassidy MD [...] Office visit 12/31/2014 Office visit Karolyn Millan AUTOMOTIVE TIRE TECHNICIAN 12/24/2014 Nurse visit Yvonne Cassidy MD 12/17/2014 Nurse visit Yvonne Cassidy MD 12/13/2014 Nurse visit Yvonne Cassidy MD 11/28/2014 Nurse visit Yvonne Cassidy MD 11/19/2014 Nurse visit Yvonne Cassidy MD 11/12/2014 Nurse visit Yvonne Cassidy MD 11/05/2014 Nurse visit Yvonne Cassidy MD 11/05/2014 [facility] [place] MD 10/29/2014 Nurse visit Yvonne Cassidy MD 10/24/2014 Nurse visit Yvonne Cassidy MD 10/15/2014 Nurse visit Yvonne Cassidy MD 10/11/2014 Office visit Karolyn Millan AUTOMOTIVE TIRE TECHNICIAN 10/09/2014 Nurse visit Yvonne Cassidy MD 10/04/2014 Nurse visit Yvonne Cassidy MD 09/19/2014 Surgery Karolyn Millan AUTOMOTIVE TIRE TECHNICIAN 09/13/2014 Office visit Yvonne Cassidy MD 09/06/2014 Nurse visit Yvonne Cassidy MD 08/28/2014 Hospital Chauncey Hogan MD 08/28/2014 Hospital Joe Thomas MD 08/23/2014 Nurse visit Yvonne Cassidy MD 08/22/2014 Surgery Joe Thomas MD 08/16/2014 Nurse visit Yvonne Cassidy MD 08/07/2014 Nurse visit Yvonne Cassidy MD 08/01/2014 Nurse visit Jessie Mock AUTOMOTIVE TIRE TECHNICIAN 07/25/2014 Nurse visit Nidia Darby AUTOMOTIVE TIRE TECHNICIAN 07/16/2014 Nurse visit Yvonne Cassidy MD 07/09/2014 Nurse visit Yvonne Cassidy MD 07/03/2014 Nurse visit Yvonne Cassidy MD 06/28/2014 Nurse visit Yvonen Cassidy MD 06/20/2014 Nurse visit Yvonne Cassidy [...] Cassidy MD 03/20/2014 Nurse visit Jessie Mock AUTOMOTIVE TIRE TECHNICIAN 03/13/2014 Nurse visit Donte Hastings AUTOMOTIVE TIRE TECHNICIAN 03/07/2014 Nurse visit Yvonne Cassidy MD 02/27/2014 Nurse visit Jessie Mock AUTOMOTIVE TIRE TECHNICIAN 02/20/2014 Nurse visit Donte Hastings AUTOMOTIVE TIRE TECHNICIAN 02/13/2014 Nurse visit Donte Hastings AUTOMOTIVE TIRE TECHNICIAN 02/13/2014 Procedures Joe Thomas MD 02/07/2014 Office visit Joe Thomas MD 02/06/2014 Nurse visit Yvonne Cassidy MD 01/17/2014 Nurse visit Nidia Darby AUTOMOTIVE TIRE TECHNICIAN 01/10/2014 Nurse visit Yvonne Cassidy MD 01/02/2014 Nurse visit Yvonne Cassidy MD 12/26/2013 Nurse visit Yvonne Cassidy MD 12/18/2013 Nurse visit Yvonne Cassidy MD 12/12/2013 Nurse visit Yvonne Cassidy MD 12/05/2013 Nurse visit Yvonne Cassidy MD 11/28/2013 Nurse visit Yvonne Cassidy MD 11/21/2013 Nurse visit Yvonne Cassidy MD 11/14/2013 Nurse visit Yvonne Cassidy MD 11/07/2013 Nurse visit Nidia Darby AUTOMOTIVE TIRE TECHNICIAN 10/31/2013 Nurse visit Nidia Darby AUTOMOTIVE TIRE TECHNICIAN 10/25/2013 Nurse visit Nidia Darby AUTOMOTIVE TIRE TECHNICIAN 10/18/2013 Voided Nidia Darby AUTOMOTIVE TIRE TECHNICIAN 10/10/2013 Voided Yvonne Cassidy MD 10/03/2013 [...] Mart MD 04/18/2013 Nurse visit Nidia Darby AUTOMOTIVE TIRE TECHNICIAN 04/04/2013 Nurse visit Nidia Darby AUTOMOTIVE TIRE TECHNICIAN 03/28/2013 Nurse visit Nidia Darby AUTOMOTIVE TIRE TECHNICIAN 03/21/2013 Nurse visit Nidia Darby AUTOMOTIVE TIRE TECHNICIAN 03/13/2013 Nurse visit Nidia Darby AUTOMOTIVE TIRE TECHNICIAN 03/09/2013 Nurse visit Nidia Darby AUTOMOTIVE TIRE TECHNICIAN 03/02/2013 Nurse visit Nidia Darby AUTOMOTIVE TIRE TECHNICIAN 02/21/2013 Nurse visit Nidia Darby AUTOMOTIVE TIRE TECHNICIAN 02/13/2013 Office visit Nidia NZafar Darby AUTOMOTIVE TIRE TECHNICIAN 02/06/2013 Nurse visit Bria Mart MD [...] MD 10/04/2012 Nurse visit Nidia Sheridan Darby AUTOMOTIVE TIRE TECHNICIAN 09/27/2012 Nurse visit Bria Mart MD 09/22/2012 Nurse visit Bria Mart MD 09/12/2012 Nurse visit Bria Mart MD 09/05/2012 Nurse visit Francisco J Jesus DO 08/31/2012 Nurse visit Bria Mart MD 08/23/2012 Nurse visit Bria Mart MD 08/16/2012 Nurse visit Bria Mart MD 08/10/2012 Nurse visit Bria Mart MD 08/03/2012 Nurse visit Bria Mrat MD 07/26/2012 Nurse visit Bria Mart MD 07/13/2012 Nurse visit Bria Mart MD 07/05/2012 Nurse visit Bria Mart MD 06/21/2012 Nurse visit Bria Mart MD 06/14/2012 Nurse visit Bria Mart MD 06/07/2012 Nurse visit Nidia GonzalesZafar Darby AUTOMOTIVE TIRE TECHNICIAN 06/07/2012 Voided Francisco J Jesus 06/01/2012 Office [...] Mart MD 09/08/2011 Office visit Jessie Mock AUTOMOTIVE TIRE TECHNICIAN 09/01/2011 Nurse visit Bria Mart MD [...] visit Bria Mart MD 04/15/2011 Nurse visit Brai Mart MD 04/08/2011 Nurse visit Bria Mart [...]
--- OUTSIDE RECORDS SUMMARY | 2017-05-06 18:02 | XMS REPORT ---
Author Author Yvonne Cassidy Organization [facility] Address [address] [place], [place] [id number] Care Team Providers Care Corporate Financial Analyst Name Role Phone Yvonne Cassidy PCP Yvonne [...] 12:00 AM Depo-Medrol 40 mg [facility]#[id number] Reviewed 03/02/2016 12:00 AM IMMUNOTHERAPY INJECTIONS Reviewed [...] Reviewed 08/13/2016 12:00 AM IMMUNOTHERAPY INJECTIONS Reviewed 11/27/2011 12:00 AM THER/PROPH/DIAG INJ SC/IM Reviewed 11/27/2011 12:00 AM Depo-Medrol 40 mg [facility]#[id number] Reviewed 12/01/2011 12:00 AM IMMUNOTHERAPY INJECTIONS Reviewed [...] Decadron, Per 1 Mg [facility]# [address]-32 Reviewed 02/13/2013 12:00 AM Depo-Medrol, Per 80 Mg [facility]#5575-0376-37 Reviewed 06/05/2013 12:00 AM MAMMOGRAM SCREENING Reviewed [...] CVX Influenza 06/02/2010 sanofi pasteur PMC Fluzone [id number] Intramuscular Left Deltoid 06/02/2010 02/25/2010 999 Influenza 05/09/2015 sanofi pasteur PMC Fluzone [id number] Intramuscular Left Deltoid 05/09/2015 02/22/2015 141 Pneumococcal 06/29/2016 [id number]-Praxis WAL Prevnar 13 [id number] Intramuscular Right Deltoid 06/29/2016 09/14/2012 133 History [...] to other allergen Aug 13 2016 3:55PM Payers Insurance Name Company Name Plan Name Plan Number Policy Number Policy Group Number Start Date BCBS [facility] [id number] June [facility] Self Insurance Fund *INVALID State Self Insurance [id number] N/A Comp [place] [id number] Wednesday, 2015 History of Encounters Visit Date Visit Type Provider 08/13/2016 Nurse visit Yvonne Cassidy MD 08/04/2016 Nurse visit Yvonne Cassidy MD 07/29/2016 Nurse visit Yvonne Cassidy MD 07/14/2016 Nurse visit Donte Hastings APRN 07/06/2016 Nurse visit Yvonne Cassidy MD 06/29/2016 Nurse visit Yvonne Cassidy MD 06/24/2016 Nurse visit Yvonne Cassidy MD 06/16/2016 Office visit Yvonne Cassidy MD 06/14/2016 [facility] Alexander Park MD 06/09/2016 Nurse visit Yvonne Cassidy MD 06/02/2016 Office visit 06/02/2016 Office visit Karolyn Millan COLLISION MECHANIC 06/01/2016 Nurse visit Yvonne Cassidy MD 05/27/2016 Nurse visit Yvonne Cassidy MD 05/11/2016 Nurse visit Yvonne Cassidy MD 05/05/2016 Nurse visit Yvonne Cassidy MD 04/29/2016 Nurse visit Yvonne Cassidy MD 04/23/2016 Office visit Jessie Mock COLLISION MECHANIC 04/13/2016 Nurse visit Yvonne Cassidy MD 04/07/2016 Nurse visit Yvonne Cassidy MD 04/01/2016 Office visit Jessie Mock COLLISION MECHANIC 03/26/2016 Nurse visit Yvonne Cassidy MD 03/17/2016 Nurse visit Yvonne Cassidy MD 03/11/2016 Nurse visit Yvonne Cassidy MD 03/04/2016 Office visit Jessie Mock COLLISION MECHANIC 03/02/2016 Nurse visit Yvonne Cassidy MD 02/19/2016 Nurse visit Yvonne Cassidy MD 02/12/2016 Office visit Jessie Mock COLLISION MECHANIC 02/03/2016 Nurse visit Yvonne Cassidy MD 01/27/2016 Nurse visit Yvonne Cassidy MD 01/15/2016 Nurse visit Yvonne Cassidy MD 01/08/2016 Office visit Jessie Mock COLLISION MECHANIC 12/25/2015 Nurse visit Yvonne Cassidy MD 12/09/2015 Nurse visit Yvonne Cassidy MD 12/02/2015 Nurse visit Yvonne Cassidy MD 11/29/2015 Nurse visit Donte Hastings COLLISION MECHANIC 11/28/2015 Nurse visit Jessie Mock COLLISION MECHANIC 11/27/2015 Office visit Jessie Mock COLLISION MECHANIC 11/25/2015 Office visit Donte Hastings COLLISION MECHANIC 11/18/2015 Nurse visit Donte Hastings COLLISION MECHANIC 11/11/2015 Nurse visit Jessie Mock COLLISION MECHANIC 11/04/2015 Nurse visit Donte Hastings COLLISION MECHANIC 10/29/2015 Office visit Jessie Mock COLLISION MECHANIC 10/28/2015 Nurse visit Jessie Mock COLLISION MECHANIC 10/21/2015 Nurse visit Glenn Tejeda MD 10/15/2015 Nurse visit Francisco J Jeuss DO 10/09/2015 Nurse visit Glenn Tejeda MD 10/02/2015 Office visit Apriljoana Atkinson COLLISION MECHANIC 10/01/2015 Nurse visit Jessie Mock COLLISION MECHANIC 09/11/2015 Nurse visit Yvonne Cassidy MD 09/05/2015 [...] Office visit 05/29/2015 Office visit Karolyn Millan COLLISION MECHANIC 05/29/2015 Nurse visit Yvonne Cassidy MD 05/14/2015 Nurse visit Francisco J Jesus DO 05/09/2015 Nurse visit Yvonne Cassidy MD 04/30/2015 Nurse visit Yvonne Cassidy MD 04/23/2015 Nurse visit Yvonne Cassidy MD 04/18/2015 Nurse visit Nidia Darby COLLISION MECHANIC 04/09/2015 Nurse visit Yvnone Cassidy MD 04/01/2015 Nurse visit Yvonne Cassidy MD 03/27/[address] Cody Horvath MD 03/25/2015 [facility] Alexander Park MD 03/19/2015 Nurse visit Yvonne Cassidy MD 03/19/2015 Office visit Nidia Darby COLLISION MECHANIC 03/04/2015 Nurse visit Yvonne Cassidy MD 02/25/2015 Nurse visit Yvonne Cassidy MD 02/18/2015 Nurse visit Yvonne Cassidy MD 02/11/2015 Nurse visit Yvonne Casisdy MD 02/04/2015 Nurse visit Yvonne Cassidy MD 01/28/2015 Nurse visit Yvonne Cassidy MD 01/21/2015 Nurse visit Yvonne Cassidy MD 01/15/2015 Nurse visit Yvonne Cassidy MD 01/07/2015 Nurse visit Yvonne Cassidy MD 12/31/2014 Nurse visit Yvonne Cassidy MD 12/31/2014 Office visit 12/31/2014 Office visit 12/31/2014 Office visit Karolyn Millan COLLISION MECHANIC 12/24/2014 Nurse visit Yvonne Cassidy MD 12/17/2014 Nurse visit Yvonne Cassidy MD 12/13/2014 Nurse visit Yvonne Cassidy MD 11/28/2014 Nurse visit Yvonne Cassidy MD 11/19/2014 Nurse visit Yvonne Cassidy MD 11/12/2014 Nurse visit Yvonne Cassidy MD 11/05/2014 Nurse visit Yvonne Cassidy MD 11/05/2014 [facility] Darin Park MD 10/29/2014 Nurse visit Yvonne Cassidy MD 10/24/2014 Nurse visit Yvonne Cassidy MD 10/15/2014 Nurse visit Yvonne Cassidy MD 10/11/2014 Office visit Karolyn Millan COLLISION MECHANIC 10/09/2014 Nurse visit Yvonne Cassidy MD 10/04/2014 Nurse visit Yvonne Cassidy MD 09/19/2014 Surgery Karolyn Millan COLLISION MECHANIC 09/13/2014 Office visit Yvonne Cassidy MD 09/06/2014 Nurse visit Yvonne Cassidy MD 08/28/2014 [facility] Chauncey Hogan MD 08/28/2014 [facility] Joe Thomas MD 08/23/2014 Nurse visit Yvonne Cassidy MD 08/22/2014 Surgery Joe Thomas MD 08/16/2014 Nurse visit Yvonne Cassidy MD 08/07/2014 Nurse visit Yvonne Cassidy MD 08/01/2014 Nurse visit Jessie Mock COLLISION MECHANIC 07/25/2014 Nurse visit Nidia Darby COLLISION MECHANIC 07/16/2014 Nurse visit Yvonne Cassidy MD 07/09/2014 [...] Cassidy MD 03/20/2014 Nurse visit Jessie Mock COLLISION MECHANIC 03/13/2014 Nurse visit Donte Hastings COLLISION MECHANIC 03/07/2014 Nurse visit Yvonne Cassidy MD 02/27/2014 Nurse visit Jessie Mock COLLISION MECHANIC 02/20/2014 Nurse visit Donte Hastings COLLISION MECHANIC 02/13/2014 Nurse visit Donte Hastings COLLISION MECHANIC 02/13/2014 Procedures Joe Thomas MD 02/07/2014 Office visit Joe Thomas MD 02/06/2014 Nurse visit Yvonne Cassidy MD 01/17/2014 Nurse visit Nidia Darby COLLISION MECHANIC 01/10/2014 Nurse visit Yvonne Cassidy MD 01/02/2014 Nurse visit Yvonne Cassidy MD 12/26/2013 Nurse visit Yvonne Cassidy MD 12/18/2013 Nurse visit Yvonne Cassidy MD 12/12/2013 Nurse visit Yvonne Cassidy MD 12/05/2013 Nurse visit Yvonne Cassidy MD 11/28/2013 Nurse visit Yvonne Cassidy MD 11/21/2013 Nurse visit Yvonne Cassidy MD 11/14/2013 Nurse visit Yvonne Cassidy MD 11/07/2013 Nurse visit Nidia Darby COLLISION MECHANIC 10/31/2013 Nurse visit Nidia Darby COLLISION MECHANIC 10/25/2013 Nurse visit Nidia Darby COLLISION MECHANIC 10/18/2013 Voided Nidia Darby COLLISION MECHANIC 10/10/2013 Voided Yvonne Cassidy MD 10/03/2013 Nurse [...] Mart MD 04/18/2013 Nurse visit Nidia Darby COLLISION MECHANIC 04/04/2013 Nurse visit Nidia Darby COLLISION MECHANIC 03/28/2013 Nurse visit Nidia Darby COLLISION MECHANIC 03/21/2013 Nurse visit Nidia Darby COLLISION MECHANIC 03/13/2013 Nurse visit Nidia Darby COLLISION MECHANIC 03/09/2013 Nurse visit Nidia Darby COLLISION MECHANIC 03/02/2013 Nurse visit Nidia Darby COLLISION MECHANIC 02/21/2013 Nurse visit Nidia Darby COLLISION MECHANIC 02/13/2013 Office visit Nidia Darby COLLISION MECHANIC 02/06/2013 Nurse visit Bria Mart MD 01/31/2013 [...] Mart MD 10/04/2012 Nurse visit Nidia Darby COLLISION MECHANIC 09/27/2012 Nurse visit Bria Mart MD 09/22/2012 [...] Mart MD 06/07/2012 Nurse visit Nidia Darby COLLISION MECHANIC 06/07/2012 Voided Francisco J Jesus DO 06/01/2012 [...] Mart MD 09/08/2011 Office visit Jessie Mock COLLISION MECHANIC 09/01/2011 Nurse visit Bria Mart MD 08/21/2011 [...]
--- OUTSIDE RECORDS SUMMARY | 2017-05-06 18:05 | XMS REPORT ---
Author Author Yvonne Cassidy [facility] Address [address] [place], [place] [id number] Care Team Providers Care Iron Plastic Bullet Maker Name Role Phone Yvonne Cassidy PCP Allergies [...] Reviewed 08/21/2011 12:00 AM Depo-Medrol 40 mg [facility]#[id number] Reviewed 03/02/2016 12:00 AM IMMUNOTHERAPY INJECTIONS Reviewed [...] Reviewed 11/27/2011 12:00 AM Depo-Medrol 40 mg [facility]#[id number] Reviewed 12/01/2011 12:00 AM IMMUNOTHERAPY INJECTIONS Reviewed [...] 02/13/2013 12:00 AM Decadron, Per 1 Mg [facility]# [address]-97 Reviewed 02/13/2013 12:00 AM Depo-Medrol, Per 80 Mg [facility]#[id number] Reviewed 06/05/2013 12:00 AM MAMMOGRAM SCREENING Returned [...] BILI 0.50 mg/dLCALCIUM 10.10 mg/dLeGFR >60 mL/min/1.73 [id number] 10.0 secsINR 1.0 PTT 28.20 secs 08/28/2014 [...] CVX Influenza 06/02/2010 sanofi pasteur PMC Fluzone [id number] Intramuscular Left Deltoid 06/02/2010 02/25/2010 999 Influenza 05/09/2015 sanofi pasteur PMC Fluzone [id number] Intramuscular Left Deltoid 05/09/2015 02/22/2015 141 History [...] Group Number Start Date BCBS [facility] [id number] June [facility] Self Insurance Fund *INVALID State Self Insurance [id number] N/A Comp [place] [id number] Wednesday, 2015 History of Encounters Visit Date Visit Type Provider 05/05/2016 Nurse visit Yvonne Cassidy MD 04/29/2016 Nurse visit Yvonne Cassidy MD 04/23/2016 Office visit Jessie Mock MINI LAB OPERATOR 04/13/2016 Nurse visit Yvonne Cassidy MD 04/07/2016 Nurse visit Yvonne Cassidy MD 04/01/2016 Office visit Jessie Mock MINI LAB OPERATOR 03/26/2016 Nurse visit Yvonne Cassidy MD 03/17/2016 Nurse visit Yvonne Cassidy MD 03/11/2016 Nurse visit Yvonne Cassidy MD 03/04/2016 Office visit Jessie Mock MINI LAB OPERATOR 03/02/2016 Nurse visit Yvonne Cassidy MD 02/19/2016 Nurse visit Yvonne Cassidy MD 02/12/2016 Office visit Jessie Mock MINI LAB OPERATOR 02/03/2016 Nurse visit Yvonne Cassidy MD 01/27/2016 Nurse visit Yvonne Cassidy MD 01/15/2016 Nurse visit Yvonne Cassidy MD 01/08/2016 Office visit Jessie Mock MINI LAB OPERATOR 12/25/2015 Nurse visit Yvonne Cassidy MD 12/09/2015 Nurse visit Yvonne Cassidy MD 12/02/2015 Nurse visit Yvonne Cassidy MD 11/29/2015 Nurse visit Donte Hastings APRN 11/28/2015 Nurse visit Jessie Mock APRN 11/27/2015 Office visit Jessie Mock MINI LAB OPERATOR 11/25/2015 Office visit Donte Darling MINI LAB OPERATOR 11/18/2015 Nurse visit Donte Darling MINI LAB OPERATOR 11/11/2015 Nurse visit Jessie Mock MINI LAB OPERATOR 11/04/2015 Nurse visit Donte Hastings MINI LAB OPERATOR 10/29/2015 Office visit Jessie Mock MINI LAB OPERATOR 10/28/2015 Nurse visit Jessie Mock MINI LAB OPERATOR 10/21/2015 Nurse visit Glenn Tejeda MD 10/15/2015 Nurse visit Francisco J Jesus DO 10/09/2015 Nurse visit Glenn Tejeda MD 10/02/2015 Office visit April Atkinson MINI LAB OPERATOR 10/01/2015 Nurse visit Jessie Nish MINI LAB OPERATOR 09/11/2015 Nurse visit Yvonne Cassidy MD [...] Office visit 05/29/2015 Office visit Karolyn Millan MINI LAB OPERATOR 05/29/2015 Nurse visit Yvonne Cassidy MD 05/14/2015 Nurse visit Francisco J Jesus DO 05/09/2015 Nurse visit Yvonne Cassidy MD 04/30/2015 Nurse visit Yvonne Cassidy MD 04/23/2015 Nurse visit Yvonne Cassidy MD 04/18/2015 Nurse visit Nidia Darby MINI LAB OPERATOR 04/09/2015 Nurse visit Yvonne Cassidy MD 04/01/2015 Nurse visit Yvonne Cassidy MD 03/27/[address] Cody Horvath MD 03/25/2015 [facility] Alexander Park MD 03/19/2015 Nurse visit Yvonne Cassidy MD 03/19/2015 Office visit Nidia Darby MINI LAB OPERATOR 03/04/2015 Nurse visit Yvonne Cassidy MD [...] Office visit 12/31/2014 Office visit Karolyn Millan MINI LAB OPERATOR 12/24/2014 Nurse visit Yvonne Cassidy MD 12/17/2014 Nurse visit Yvonne Cassidy MD 12/13/2014 Nurse visit Yvonne Cassidy MD 11/28/2014 Nurse visit Yvonne Cassidy MD 11/19/2014 Nurse visit Yvonne Cassidy MD 11/12/2014 Nurse visit Yvonne Cassidy MD 11/05/2014 Nurse visit Yvonne Cassidy MD 11/05/2014 [facility] Alexander Park MD 10/29/2014 Nurse visit Yvonne Cassidy MD 10/24/2014 Nurse visit Yvonne Cassidy MD 10/15/2014 Nurse visit Yvonne Cassidy MD 10/11/2014 Office visit Karolyn Millan MINI LAB OPERATOR 10/09/2014 Nurse visit Yvonne Cassidy MD 10/04/2014 Nurse visit Yvonne Cassidy MD 09/19/2014 Surgery Karolyn Millan MINI LAB OPERATOR 09/13/2014 Office visit Yvonne Cassidy MD 09/06/2014 Nurse visit Yvonne Cassidy MD 08/28/2014 [facility] Chauncey Hogan MD 08/28/2014 [facility] Joe Thomas MD 08/23/2014 Nurse visit Yvonne Cassidy MD 08/22/2014 Surgery Joe Thomas MD 08/16/2014 Nurse visit Yvonne Cassidy MD 08/07/2014 Nurse visit Yvonne Cassidy MD 08/01/2014 Nurse visit Jessie Mock MINI LAB OPERATOR 07/25/2014 Nurse visit Nidia Darby MINI LAB OPERATOR 07/16/2014 Nurse visit Yvonne Cassidy MD [...] Cassidy MD 03/20/2014 Nurse visit Jessie Mock MINI LAB OPERATOR 03/13/2014 Nurse visit Donte Hastings MINI LAB OPERATOR 03/07/2014 Nurse visit Yvonne Cassidy MD 02/27/2014 Nurse visit Jessie Mock MINI LAB OPERATOR 02/20/2014 Nurse visit Donte Hastings MINI LAB OPERATOR 02/13/2014 Nurse visit Donte Hastings MINI LAB OPERATOR 02/13/2014 Procedures Joe Thomas MD 02/07/2014 Office visit Joe Thomas MD 02/06/2014 Nurse visit Yvonne Cassidy MD 01/17/2014 Nurse visit Nidia Darby MINI LAB OPERATOR 01/10/2014 Nurse visit Yvonne Cassidy MD 01/02/2014 Nurse visit Yvonne Cassidy MD 12/26/2013 Nurse visit Yvonne Cassidy MD 12/18/2013 Nurse visit Yvonne Cassidy MD 12/12/2013 Nurse visit Yvonne Cassidy MD 12/05/2013 Nurse visit Yvonne Cassidy MD 11/28/2013 Nurse visit Yvonne Cassidy MD 11/21/2013 Nurse visit Yvonne Cassidy MD 11/14/2013 Nurse visit Yvonne Cassidy MD 11/07/2013 Nurse visit Nidia Darby MINI LAB OPERATOR 10/31/2013 Nurse visit Nidia Darby MINI LAB OPERATOR 10/25/2013 Nurse visit Nidia Darby MINI LAB OPERATOR 10/18/2013 Voided Nidia Darby MINI LAB OPERATOR 10/10/2013 Voided Yvonne Cassidy MD 10/03/2013 [...] Mart MD 04/18/2013 Nurse visit Nidia Darby MINI LAB OPERATOR 04/04/2013 Nurse visit Nidia Darby MINI LAB OPERATOR 03/28/2013 Nurse visit Nidia Darby MINI LAB OPERATOR 03/21/2013 Nurse visit Nidia Darby MINI LAB OPERATOR 03/13/2013 Nurse visit Nidia Darby MINI LAB OPERATOR 03/09/2013 Nurse visit Nidia Darby MINI LAB OPERATOR 03/02/2013 Nurse visit Nidia Darby MINI LAB OPERATOR 02/21/2013 Nurse visit Nidia Darby MINI LAB OPERATOR 02/13/2013 Office visit Nidia Darby MINI LAB OPERATOR 02/06/2013 Nurse visit Bria Mart MD [...] Mart MD 10/04/2012 Nurse visit Nidia Darby MINI LAB OPERATOR 09/27/2012 Nurse visit Bria Mart MD [...] Mart MD 06/07/2012 Nurse visit Nidia Darby MINI LAB OPERATOR 06/07/2012 Voided Francisco J Jesus DO [...] Bria Mart MD 05/29/2009 Office visit Marium GODLEN
--- OUTSIDE RECORDS SUMMARY | 2017-05-06 18:09 | XMS REPORT ---
Author Author Donte Hastings [facility] Address [address] [place], [place] [id number] Care Team Providers Care Limited Radiology Technician Name Role Phone Donte Hastings PCP Allergies and Adverse Reactions Name Reaction [...] 08/21/2011 12:00 AM Depo-Medrol 40 mg [facility]#[id number] Reviewed 09/08/2011 12:00 AM IMMUNOTHERAPY INJECTIONS Reviewed [...] 11/27/2011 12:00 AM Depo-Medrol 40 mg [facility]#[id number] Reviewed 12/01/2011 12:00 AM IMMUNOTHERAPY INJECTIONS Reviewed [...] 12:00 AM Decadron, Per 1 Mg [facility]# [address]-13 Reviewed 02/13/2013 12:00 AM Depo-Medrol, Per 80 Mg [facility]#5407-5866-01 Reviewed 06/05/2013 12:00 AM MAMMOGRAM SCREENING Returned [...] BILI 0.50 mg/dLCALCIUM 10.10 mg/dLeGFR >60 mL/min/1.73 [id number] 10.0 secsINR 1.0 PTT 28.20 secs 08/28/2014 [...] CVX Influenza 06/02/2010 sanofi pasteur PMC Fluzone [id number] Intramuscular Left Deltoid 06/02/2010 02/25/2010 999 Influenza 05/09/2015 sanofi pasteur PMC Fluzone [id number] Intramuscular Left Deltoid 05/09/2015 02/22/2015 141 History [...] 3:29PM Allergic rhinitis; due to other allergen [id number] 3:29PM Allergic rhinitis; due to pollen Aug [...] to other allergen Nov 04 2015 4:43PM Payers Insurance Name Company Name Plan Name Plan Number Policy Number Policy Group Number Start Date BCBS [facility] [id number] June [facility] Self Insurance Fund *INVALID State Self Insurance [id number] N/A History of Encounters Visit Date Visit Type Provider 11/04/2015 Nurse visit Donte Hastings ELECTRONICS SPECIALIST 10/29/2015 Office visit Jessie Mock ELECTRONICS SPECIALIST 10/28/2015 Nurse visit Jessie Mock ELECTRONICS SPECIALIST 10/21/2015 Nurse visit Glenn Tejeda MD 10/15/2015 Nurse visit Francisco J Jesus DO 10/09/2015 Nurse visit Glenn Tejeda MD 10/02/2015 Office visit April Atkinson ELECTRONICS SPECIALIST 10/01/2015 Nurse visit Jessie Mock ELECTRONICS SPECIALIST 09/11/2015 Nurse visit Yvonne Cassidy MD 09/05/2015 [...] Office visit 05/29/2015 Office visit Karolyn Millan ELECTRONICS SPECIALIST 05/29/2015 Nurse visit Yvonne Cassidy MD 05/14/2015 Nurse visit Francisco J Jesus DO 05/09/2015 Nurse visit Yvonne Cassidy MD 04/30/2015 Nurse visit Yvonne Cassidy MD 04/23/2015 Nurse visit Yvonne Cassidy MD 04/18/2015 Nurse visit Nidia Darby ELECTRONICS SPECIALIST 04/09/2015 Nurse visit Yvonne Csasidy MD 04/01/2015 Nurse visit Yvonne Cassidy MD 03/27/[address] Cody Horvath MD 03/25/2015 [facility] Alexander Park MD 03/19/2015 Nurse visit Yvonne Cassidy MD 03/19/2015 Office visit Nidia Darby ELECTRONICS SPECIALIST 03/04/2015 Nurse visit Yvonne Cassidy MD [...] Office visit 12/31/2014 Office visit Karolyn Millan ELECTRONICS SPECIALIST 12/24/2014 Nurse visit Yvonne Cassidy MD 12/17/2014 Nurse visit Yvonne Cassidy MD 12/13/2014 Nurse visit Yvonne Cassidy MD 11/28/2014 Nurse visit Yvonne Cassidy MD 11/19/2014 Nurse visit Yvonne Cassidy MD 11/12/2014 Nurse visit Yvonne Cassidy MD 11/05/2014 Nurse visit Yvonne Cassidy MD 11/05/2014 [facility] Alexander Park MD 10/29/2014 Nurse visit Yvonne Cassidy MD 10/24/2014 Nurse visit Yvonne Cassidy MD 10/15/2014 Nurse visit Yvonne Cassidy MD 10/11/2014 Office visit Karolyn Millan ELECTRONICS SPECIALIST 10/09/2014 Nurse visit Yvonne Cassidy MD 10/04/2014 Nurse visit Yvonne Cassidy MD 09/19/2014 Surgery Karolyn Millan ELECTRONICS SPECIALIST 09/13/2014 Office visit Yvonne Cassidy MD 09/06/2014 Nurse visit Yvonne Cassidy MD 08/28/2014 Hospital Chauncey Hogan MD 08/28/2014 Hospital Joe Thomas MD 08/23/2014 Nurse visit Yvonne Cassidy MD 08/22/2014 Surgery Joe Thomas MD 08/16/2014 Nurse visit Yvonne Cassidy MD 08/07/2014 Nurse visit Yvonne Cassidy MD 08/01/2014 Nurse visit Jessie Mock ELECTRONICS SPECIALIST 07/25/2014 Nurse visit Nidia Darby ELECTRONICS SPECIALIST 07/16/2014 Nurse visit Yvonne Cassidy MD [...] Yvonne Cassidy MD 03/26/2014 Nurse visit Yvonne aCssidy MD 03/20/2014 Nurse visit Jessie Mock ELECTRONICS SPECIALIST 03/13/2014 Nurse visit Donte Hastings ELECTRONICS SPECIALIST 03/07/2014 Nurse visit Yvonne Cassidy MD 02/27/2014 Nurse visit Jessie Mock ELECTRONICS SPECIALIST 02/20/2014 Nurse visit Donte Hastings ELECTRONICS SPECIALIST 02/13/2014 Nurse visit Donte Hastings ELECTRONICS SPECIALIST 02/13/2014 Procedures Joe Thomas MD 02/07/2014 Office visit Joe Thomas MD 02/06/2014 Nurse visit Yvonne Cassidy MD 01/17/2014 Nurse visit Nidia Darby ELECTRONICS SPECIALIST 01/10/2014 Nurse visit Yvonne Cassidy MD 01/02/2014 Nurse visit Yvonne Cassidy MD 12/26/2013 Nurse visit Yvonne Cassidy MD 12/18/2013 Nurse visit Yvonne Cassidy MD 12/12/2013 Nurse visit Yvonen Cassidy MD 12/05/2013 Nurse visit Yvonne Cassidy MD 11/28/2013 Nurse visit Yvonne Cassidy MD 11/21/2013 Nurse visit Yvonne Cassidy MD 11/14/2013 Nurse visit Yvonne Cassidy MD 11/07/2013 Nurse visit Nidia Darby ELECTRONICS SPECIALIST 10/31/2013 Nurse visit Nidia Darby ELECTRONICS SPECIALIST 10/25/2013 Nurse visit Nidia Darby ELECTRONICS SPECIALIST 10/18/2013 Voided Nidia Darby ELECTRONICS SPECIALIST 10/10/2013 Voided Yvonne Cassidy MD 10/03/2013 [...] Mart MD 04/18/2013 Nurse visit Nidia Darby ELECTRONICS SPECIALIST 04/04/2013 Nurse visit Nidia Darby ELECTRONICS SPECIALIST 03/28/2013 Nurse visit Nidia Darby ELECTRONICS SPECIALIST 03/21/2013 Nurse visit Nidia Darby ELECTRONICS SPECIALIST 03/13/2013 Nurse visit Nidia Darby ELECTRONICS SPECIALIST 03/09/2013 Nurse visit Nidia Darby ELECTRONICS SPECIALIST 03/02/2013 Nurse visit Nidia Darby ELECTRONICS SPECIALIST 02/21/2013 Nurse visit Nidia Darby ELECTRONICS SPECIALIST 02/13/2013 Office visit Nidia Darby ELECTRONICS SPECIALIST 02/06/2013 Nurse visit Bria Mart MD [...] MD 10/04/2012 Nurse visit Nidia NZafar Darby ELECTRONICS SPECIALIST 09/27/2012 Nurse visit Bria Mart MD [...] MD 06/07/2012 Nurse visit Nidia GonzalesZafar Darby ELECTRONICS SPECIALIST 06/07/2012 Voided Francisco J Jesus 06/01/2012 Office visit Bria Mart MD 05/24/2012 Nurse visit Bria Mart MD 05/17/2012 Nurse visit Bria Mart MD 05/10/2012 Nurse visit Bria Mart MD 05/03/2012 Nurse visit Bria Mart MD 04/26/2012 Nurse visit Bria Matr MD 04/21/2012 Nurse visit Bria Mart MD [...] Mart MD 09/08/2011 Office visit Jessie Mock ELECTRONICS SPECIALIST 09/01/2011 Nurse visit Bria Mart MD [...]
--- OUTSIDE RECORDS SUMMARY | 2017-05-06 18:12 | XMS REPORT ---
Author Author Glenn Tejeda [facility] Address [address] [place], [place] [id number] Care Team Providers Care Detailer Name Role Phone Glenn Tejeda PCP Unavailable [...] Reviewed 10/09/2015 12:00 AM IMMUNOTHERAPY INJECTIONS Reviewed 06/17/2011 12:00 [...] Reviewed 08/21/2011 12:00 AM Depo-Medrol 40 mg ND#[id number] Reviewed 09/08/2011 12:00 AM IMMUNOTHERAPY INJECTIONS Reviewed [...] Reviewed 11/27/2011 12:00 AM Depo-Medrol 40 mg NDC#[id number] Reviewed 12/01/2011 12:00 AM IMMUNOTHERAPY INJECTIONS Reviewed [...] 02/13/2013 12:00 AM Decadron, Per 1 Mg [facility]# [id number] Reviewed 02/13/2013 12:00 AM Depo-Medrol, Per 80 Mg [facility]#[id number] Reviewed 06/05/2013 12:00 AM MAMMOGRAM SCREENING Returned [...] BILI 0.50 mg/dLCALCIUM 10.10 mg/dLeGFR >60 mL/min/1.73 [id number] 10.0 secsINR 1.0 PTT 28.20 secs 08/28/2014 [...] CVX Influenza 06/02/2010 sanofi pasteur PMC Fluzone [id number] Intramuscular Left Deltoid 06/02/2010 02/25/2010 999 Influenza 05/09/2015 sanofi pasteur PMC Fluzone [id number] Intramuscular Left Deltoid 05/09/2015 02/22/2015 141 History [...] to other allergen Oct 09 2015 3:38PM Payers Insurance Name Company Name Plan Name Plan Number Policy Number Policy Group Number [id number] June [facility] Self Insurance Fund *INVALID State Self Insurance [id number] N/A History of Encounters Visit Date Visit Type Provider 10/09/2015 Nurse visit Glenn Tejeda MD 10/02/2015 Office visit April Atkinson FACILITY TECHNICIAN 10/01/2015 Nurse visit Jessie Mock FACILITY TECHNICIAN 09/11/2015 Nurse visit Yvonne Cassidy MD [...] Office visit 05/29/2015 Office visit Karolyn Millan FACILITY TECHNICIAN 05/29/2015 Nurse visit Yvonne Cassidy MD 05/14/2015 Nurse visit Francisco J Jesus DO 05/09/2015 Nurse visit Yvonne Cassidy MD 04/30/2015 Nurse visit Yvonne Cassidy MD 04/23/2015 Nurse visit Yvonne Cassidy MD 04/18/2015 Nurse visit Nidia Daryb FACILITY TECHNICIAN 04/09/2015 Nurse visit Yvonne Cassidy MD 04/01/2015 Nurse visit Yvonne Cassidy MD 03/27/[address] Cody Horvath MD 03/25/2015 [facility] Alexander Park MD 03/19/2015 Nurse visit Yvonne Cassidy MD 03/19/2015 Office visit Nidia Darby FACILITY TECHNICIAN 03/04/2015 Nurse visit Yvonne Cassidy MD [...] Office visit 12/31/2014 Office visit Karolyn Millan FACILITY TECHNICIAN 12/24/2014 Nurse visit Yvonne Cassidy MD 12/17/2014 Nurse visit Yvonne Cassidy MD 12/13/2014 Nurse visit Yvonne Cassidy MD 11/28/2014 Nurse visit Yvonne Cassidy MD 11/19/2014 Nurse visit Yvonne Cassidy MD 11/12/2014 Nurse visit Yvonne Cassidy MD 11/05/2014 Nurse visit Yvonne Cassidy MD 11/05/2014 [facility] Darin Park MD 10/29/2014 Nurse visit Yvonne Cassidy MD 10/24/2014 Nurse visit Yvonne Cassidy MD 10/15/2014 Nurse visit Yvonne Cassidy MD 10/11/2014 Office visit Karolyn Millan FACILITY TECHNICIAN 10/09/2014 Nurse visit Yvonne Cassidy MD 10/04/2014 Nurse visit Yvonne Cassidy MD 09/19/2014 Surgery Karolyn Millan FACILITY TECHNICIAN 09/13/2014 Office visit Yvonne Cassidy MD 09/06/2014 Nurse visit Yvonne Cassidy MD 08/28/2014 [facility] Chauncey Hogan MD 08/28/2014 [facility] Joe Thomas MD 08/23/2014 Nurse visit Yvonne Cassidy MD 08/22/2014 Surgery Joe Thomas MD 08/16/2014 Nurse visit Yvonne Cassidy MD 08/07/2014 Nurse visit Yvonne Cassidy MD 08/01/2014 Nurse visit Jessie Mock FACILITY TECHNICIAN 07/25/2014 Nurse visit Nidia Darby FACILITY TECHNICIAN 07/16/2014 Nurse visit Yvonne Cassidy MD [...] Cassidy MD 03/20/2014 Nurse visit Jessie Mock FACILITY TECHNICIAN 03/13/2014 Nurse visit Donte Hastings FACILITY TECHNICIAN 03/07/2014 Nurse visit Yvonne Cassidy MD 02/27/2014 Nurse visit Jessie Mock FACILITY TECHNICIAN 02/20/2014 Nurse visit Donte Hastings FACILITY TECHNICIAN 02/13/2014 Nurse visit Donte Hastings FACILITY TECHNICIAN 02/13/2014 Procedures Joe Thomas MD 02/07/2014 Office visit Joe Thomas MD 02/06/2014 Nurse visit Yvonne Cassidy MD 01/17/2014 Nurse visit Nidia Darby FACILITY TECHNICIAN 01/10/2014 Nurse visit Yvonne Cassidy MD 01/02/2014 Nurse visit Yvonne Cassidy MD 12/26/2013 Nurse visit Yvonne Cassidy MD 12/18/2013 Nurse visit Yvonne Cassidy MD 12/12/2013 Nurse visit Yvonne Cassidy MD 12/05/2013 Nurse visit Yvonne Cassidy MD 11/28/2013 Nurse visit Yvonne Cassidy MD 11/21/2013 Nurse visit Yvonne Cassidy MD 11/14/2013 Nurse visit Yvonne Cassidy MD 11/07/2013 Nurse visit Nidia Darby FACILITY TECHNICIAN 10/31/2013 Nurse visit Nidia Darby FACILITY TECHNICIAN 10/25/2013 Nurse visit Nidia Darby FACILITY TECHNICIAN 10/18/2013 Voided Nidia Darby FACILITY TECHNICIAN 10/10/2013 Voided Yvonne Cassidy MD 10/03/2013 [...] Mart MD 04/18/2013 Nurse visit Nidia Darby FACILITY TECHNICIAN 04/04/2013 Nurse visit Nidia Darby FACILITY TECHNICIAN 03/28/2013 Nurse visit Nidia Darby FACILITY TECHNICIAN 03/21/2013 Nurse visit Nidia Darby FACILITY TECHNICIAN 03/13/2013 Nurse visit Nidia Darby FACILITY TECHNICIAN 03/09/2013 Nurse visit Nidia Darby FACILITY TECHNICIAN 03/02/2013 Nurse visit Nidia Darby FACILITY TECHNICIAN 02/21/2013 Nurse visit Nidia Darby FACILITY TECHNICIAN 02/13/2013 Office visit Nidia Darby FACILITY TECHNICIAN 02/06/2013 Nurse visit Bria Mart MD [...] Mart MD 10/04/2012 Nurse visit Nidia Darby FACILITY TECHNICIAN 09/27/2012 Nurse visit Bria Mart MD [...] Mart MD 06/07/2012 Nurse visit Nidia Darby FACILITY TECHNICIAN 06/07/2012 Voided Francisco J Jesus DO [...] Bria Mart MD 11/03/2011 Nurse visit Bria aMrt MD 10/29/2011 Nurse visit Bria Mart MD 10/20/2011 Nurse visit Bria Mart MD 10/13/2011 Nurse visit Bria Mart MD 10/06/2011 Nurse visit Bria Mart MD 10/01/2011 Nurse visit Bria Mart MD 09/24/2011 Nurse visit Bria Mart MD 09/17/2011 Nurse visit Bria Mart MD 09/08/2011 Nurse visit Bria Mart MD 09/08/2011 Office visit Jessie Mock FACILITY TECHNICIAN 09/01/2011 Nurse visit Bria Mart MD [...]
--- OUTSIDE RECORDS SUMMARY | 2017-05-06 18:16 | XMS REPORT ---
Author Author Francisco J Jesus [facility] Address [address] [place], [place] [address] Care Team Providers Care Surgical Instrument Technician Name Role Phone Francisco J Jesus PCP [...] Reviewed 08/21/2011 12:00 AM Depo-Medrol 40 mg NDC#[id number] Reviewed 09/08/2011 12:00 AM IMMUNOTHERAPY INJECTIONS Reviewed [...] Reviewed 11/27/2011 12:00 AM Depo-Medrol 40 mg NDC#[id number] Reviewed 12/01/2011 12:00 AM IMMUNOTHERAPY INJECTIONS Reviewed [...] Per 1 Mg [facility]# [address]-14 Reviewed 02/13/2013 12:00 AM Depo-Medrol, Per 80 Mg [facility]#[id number] Reviewed 06/05/2013 12:00 AM MAMMOGRAM SCREENING Returned [...] BILI 0.50 mg/dLCALCIUM 10.10 mg/dLeGFR >60 mL/min/1.73 [id number] 10.0 secsINR 1.0 PTT 28.20 secs 08/28/2014 [...] CVX Influenza 06/02/2010 sanofi pasteur PMC Fluzone [id number] Intramuscular Left Deltoid 06/02/2010 02/25/2010 999 Influenza 05/09/2015 sanofi pasteur PMC Fluzone [id number] Intramuscular Left Deltoid 05/09/2015 02/22/2015 141 History [...] to other allergen Oct 15 2015 3:59PM Payers Insurance Name Company Name Plan Name Plan Number Policy Number Policy Group Number [facility] Date [id number] June [facility] Self Insurance Fund *INVALID State Self Insurance [id number] N/A History of Encounters Visit Date Visit Type Provider 10/15/2015 Nurse visit Francisco J Jesus DO 10/09/2015 Nurse visit Glenn Tejeda MD 10/02/2015 Office visit April Atkinson WEB MARKETING ANALYST 10/01/2015 Nurse visit Jessie Mock WEB MARKETING ANALYST 09/11/2015 Nurse visit Yvonne Cassidy MD 09/05/2015 [...] Office visit 05/29/2015 Office visit Karolyn Millan WEB MARKETING ANALYST 05/29/2015 Nurse visit Yvonne Cassidy MD 05/14/2015 Nurse visit Francisco J Jesus DO 05/09/2015 Nurse visit Yvonne Cassidy MD 04/30/2015 Nurse visit Yvonne Cassidy MD 04/23/2015 Nurse visit Yvonne Cassidy MD 04/18/2015 Nurse visit Nidia Darby WEB MARKETING ANALYST 04/09/2015 Nurse visit Yvonne Cassidy MD 04/01/2015 Nurse visit Yvonne Cassidy MD 03/27/[address] Cody Horvath MD 03/25/2015 [facility] Alexander Park MD 03/19/2015 Nurse visit Yvonne Cassidy MD 03/19/2015 Office visit Nidia Darby WEB MARKETING ANALYST 03/04/2015 Nurse visit Yvonne Cassidy MD 02/25/2015 [...] visit 12/31/2014 Office visit 12/31/2014 Office visit Karloyn Millan WEB MARKETING ANALYST 12/24/2014 Nurse visit Yvonne Cassidy MD 12/17/2014 [...] Cassidy MD 10/11/2014 Office visit Karolyn Millan WEB MARKETING ANALYST 10/09/2014 Nurse visit Yvonne Cassidy MD 10/04/2014 Nurse visit Yvonne Cassidy MD 09/19/2014 Surgery Karolyn Millan WEB MARKETING ANALYST 09/13/2014 Office visit Yvonne Cassidy MD 09/06/2014 Nurse visit Yvonne Cassidy MD 08/28/2014 [facility] Chauncey Hogan MD 08/28/2014 [facility] Joe Thomas MD 08/23/2014 Nurse visit Yvonne Cassidy MD 08/22/2014 Surgery Joe Thomas MD 08/16/2014 Nurse visit Yvonne Cassidy MD 08/07/2014 Nurse visit Yvonne Cassidy MD 08/01/2014 Nurse visit Jessie Mock WEB MARKETING ANALYST 07/25/2014 Nurse visit Nidia Darby WEB MARKETING ANALYST 07/16/2014 Nurse visit Yvonne Cassidy MD 07/09/2014 Nurse visit Yvonne Cassidy MD 07/03/2014 Nurse visit Yvonne Cassidy MD 06/28/2014 Nurse visit Yvonne Cassidy MD 06/20/2014 Nurse visit Yvonne aCssidy MD 06/12/2014 Nurse visit Yvonne Cassidy MD [...] Cassidy MD 03/20/2014 Nurse visit Jessie Mock WEB MARKETING ANALYST 03/13/2014 Nurse visit Donte Hastings WEB MARKETING ANALYST 03/07/2014 Nurse visit Yvonne Cassidy MD 02/27/2014 Nurse visit Jessie Mock WEB MARKETING ANALYST 02/20/2014 Nurse visit Donte Hastings WEB MARKETING ANALYST 02/13/2014 Nurse visit Donte Hastings WEB MARKETING ANALYST 02/13/2014 Procedures Joe Thomas MD 02/07/2014 Office visit Joe Thomas MD 02/06/2014 Nurse visit Yvonne Cassidy MD 01/17/2014 Nurse visit Nidia Darby WEB MARKETING ANALYST 01/10/2014 Nurse visit Yvonne Cassidy MD 01/02/2014 Nurse visit Yvonne Cassidy MD 12/26/2013 Nurse visit Yvonne Cassidy MD 12/18/2013 Nurse visit Yvonne Cassidy MD 12/12/2013 Nurse visit Yvonne Cassidy MD 12/05/2013 Nurse visit Yvonne Cassidy MD 11/28/2013 Nurse visit Yvonne Cassidy MD 11/21/2013 Nurse visit Yvonne Cassidy MD 11/14/2013 Nurse visit Yvonne Cassidy MD 11/07/2013 Nurse visit Nidia Darby WEB MARKETING ANALYST 10/31/2013 Nurse visit Nidia Darby WEB MARKETING ANALYST 10/25/2013 Nurse visit Nidia Darby WEB MARKETING ANALYST 10/18/2013 Voided Nidia Darby WEB MARKETING ANALYST 10/10/2013 Voided Yvonne Cassidy MD 10/03/2013 Nurse [...] Mart MD 04/18/2013 Nurse visit Nidia Darby WEB MARKETING ANALYST 04/04/2013 Nurse visit Nidia Darby WEB MARKETING ANALYST 03/28/2013 Nurse visit Nidia Darby WEB MARKETING ANALYST 03/21/2013 Nurse visit Nidia Darby WEB MARKETING ANALYST 03/13/2013 Nurse visit Nidia Darby WEB MARKETING ANALYST 03/09/2013 Nurse visit Nidia Darby WEB MARKETING ANALYST 03/02/2013 Nurse visit Nidia Darby WEB MARKETING ANALYST 02/21/2013 Nurse visit Nidia Darby WEB MARKETING ANALYST 02/13/2013 Office visit Nidia Darby WEB MARKETING ANALYST 02/06/2013 Nurse visit Bria Mart MD 01/31/2013 [...] Mart MD 10/04/2012 Nurse visit Nidia Darby WEB MARKETING ANALYST 09/27/2012 Nurse visit Bria Mart MD 09/22/2012 [...] Mart MD 06/07/2012 Nurse visit Nidia Darby WEB MARKETING ANALYST 06/07/2012 Voided Francisco J Jesus DO 06/01/2012 [...] Mart MD 09/08/2011 Office visit Jessie Mock WEB MARKETING ANALYST 09/01/2011 Nurse visit Bria Mart MD 08/21/2011 Office visit Bria Mart MD 08/12/2011 Nurse visit Bria Mart MD 08/06/2011 Office visit Bria Mart MD 07/28/2011 Nurse visit Bria aMrt MD 07/21/2011 Office visit Bria Mart MD [...]
--- OUTSIDE RECORDS SUMMARY | 2017-05-06 18:20 | XMS REPORT ---
Author Author Yvonne Cassidy [facility] Address [address] [place], [place] [address] Care Team Providers Care Stock Counter Name Role Phone Yvonne Cassidy PCP Allergies [...] AM Depo-Medrol [address] [facility]#[id number] Reviewed 03/02/2016 12:00 AM IMMUNOTHERAPY INJECTIONS Reviewed 03/06/2016 12:00 AM IMMUNOTHERAPY INJECTIONS Reviewed 03/11/2016 12:00 AM IMMUNOTHERAPY INJECTIONS Reviewed 03/17/2016 12:00 AM IMMUNOTHERAPY INJECTIONS Reviewed 09/08/2011 12:00 AM IMMUNOTHERAPY INJECTIONS Reviewed 03/26/2016 12:00 AM IMMUNOTHERAPY INJECTIONS Reviewed 04/01/2016 12:00 AM IMMUNOTHERAPY INJECTIONS Reviewed 04/07/2016 12:00 AM IMMUNOTHERAPY INJECTIONS Reviewed 04/13/2016 12:00 AM IMMUNOTHERAPY INJECTIONS Reviewed 09/24/2011 12:00 [...] AM Depo-Medrol [address] [facility]#[id number] Reviewed 12/01/2011 12:00 AM IMMUNOTHERAPY INJECTIONS Reviewed [...] Per [address] [facility]# [address]-15 Reviewed 02/13/2013 12:00 AM Depo-Medrol, Per [address] [facility]#1320-1349-00 Reviewed 06/05/2013 12:00 AM MAMMOGRAM SCREENING Returned [...] BILI 0.50 mg/dLCALCIUM 10.10 mg/dLeGFR >60 mL/min/1.73 [id number] 10.0 secsINR 1.0 PTT 28.20 secs 08/28/2014 [...] CVX Influenza 06/02/2010 sanofi pasteur PMC Fluzone [id number] Intramuscular Left Deltoid 06/02/2010 02/25/2010 999 Influenza 05/09/2015 [facility] Fluzone [id number] Intramuscular Left Deltoid 05/09/2015 02/22/2015 141 History [...] to other allergen Apr 13 2016 4:36PM Payers Insurance Name Company Name Plan Name Plan Number Policy Number Policy Group Number Start Date [employer] [facility] [id number] June [facility] Self Insurance Fund *INVALID State Self Insurance [id number] N/A Comp [place] Comp [place] [id number] Wednesday, 2015 History of Encounters Visit Date Visit Type Provider 04/13/2016 Nurse visit Yvonne Cassidy MD 04/07/2016 Nurse visit Yvonne Cassidy MD 04/01/2016 Office visit Jessie Mock INFANT NANNY 03/26/2016 Nurse visit Yvonne Cassidy MD 03/17/2016 Nurse visit Yvonne Cassidy MD 03/11/2016 Nurse visit Yvonne Cassidy MD 03/04/2016 Office visit Jessie Mock INFANT NANNY 03/02/2016 Nurse visit Yvonne Cassidy MD 02/19/2016 Nurse visit Yvonne Cassidy MD 02/12/2016 Office visit Jessie Mock INFANT NANNY 02/03/2016 Nurse visit Yvonne Cassidy MD 01/27/2016 Nurse visit Yvonne Cassidy MD 01/15/2016 Nurse visit Yvonne Cassidy MD 01/08/2016 Office visit Jessie Mock INFANT NANNY 12/25/2015 Nurse visit Yvonne Cassidy MD 12/09/2015 Nurse visit Yvonne Cassidy MD 12/02/2015 Nurse visit Yvonne Cassidy MD 11/29/2015 Nurse visit Donte Hastings INFANT NANNY 11/28/2015 Nurse visit Jessie Mock INFANT NANNY 11/27/2015 Office visit Jessie Mock INFANT NANNY 11/25/2015 Office visit Donte Hastings INFANT NANNY 11/18/2015 Nurse visit Donte Hastings INFANT NANNY 11/11/2015 Nurse visit Jessie Mock INFANT NANNY 11/04/2015 Nurse visit Donte Hastings INFANT NANNY 10/29/2015 Office visit Jessie Mock INFANT NANNY 10/28/2015 Nurse visit Jessie Mock INFANT NANNY 10/21/2015 Nurse visit Glenn Tejeda MD 10/15/2015 Nurse visit Francisco J Jesus DO 10/09/2015 Nurse visit Glenn Tejeda MD 10/02/2015 Office visit April Atkinson INFANT NANNY 10/01/2015 Nurse visit Jessie Mock INFANT NANNY 09/11/2015 Nurse visit Yvonne Cassidy MD 09/05/2015 [...] Office visit 05/29/2015 Office visit Karolyn Millan INFANT NANNY 05/29/2015 Nurse visit Yvonne Cassidy MD 05/14/2015 Nurse visit Francisco J Jesus DO 05/09/2015 Nurse visit Yvonne Cassidy MD 04/30/2015 Nurse visit Yvonne Cassidy MD 04/23/2015 Nurse visit Yvonne Cassidy MD 04/18/2015 Nurse visit Nidia Darby INFANT NANNY 04/09/2015 Nurse visit Yvonne Cassidy MD 04/01/2015 Nurse visit Yvonne Cassidy MD 03/27/[address] Cody Horvath MD 03/25/2015 [facility] Alexander Park MD 03/19/2015 Nurse visit Yvonne Cassidy MD 03/19/2015 Office visit Nidia Darby INFANT NANNY 03/04/2015 Nurse visit Yvonne Cassidy MD 02/25/2015 [...] Office visit 12/31/2014 Office visit Karolyn Millan INFANT NANNY 12/24/2014 Nurse visit Yvonne Cassidy MD 12/17/2014 Nurse visit Yvonne Cassidy MD 12/13/2014 Nurse visit Yvonne Cassidy MD 11/28/2014 Nurse visit Yvonne Cassidy MD 11/19/2014 Nurse visit Yvonne Cassidy MD 11/12/2014 Nurse visit Yvonne Cassidy MD 11/05/2014 Nurse visit Yvonne Cassidy MD 11/05/2014 [facility] [place] Park MD 10/29/2014 Nurse visit Yvonne Cassidy MD 10/24/2014 Nurse visit Yvonne Cassidy MD 10/15/2014 Nurse visit Yvonne Cassidy MD 10/11/2014 Office visit Karolyn Millan INFANT NANNY 10/09/2014 Nurse visit Yvonne Cassidy MD 10/04/2014 Nurse visit Yvonne Cassidy MD 09/19/2014 Surgery Karolyn Millan INFANT NANNY 09/13/2014 Office visit Yvonne Cassidy MD 09/06/2014 Nurse visit Yvonne Cassidy MD 08/28/2014 [facility] Chauncey Hogan MD 08/28/2014 [facility] Joe Thomas MD 08/23/2014 Nurse visit Yvonne Cassidy MD 08/22/2014 Surgery Joe Thomas MD 08/16/2014 Nurse visit Yvonne Cassidy MD 08/07/2014 Nurse visit Yvonne Cassidy MD 08/01/2014 Nurse visit Jessie Mock INFANT NANNY 07/25/2014 Nurse visit Nidia Darby INFANT NANNY 07/16/2014 Nurse visit Yvonne Cassidy MD 07/09/2014 [...] Cassidy MD 03/20/2014 Nurse visit Jessie Mock INFANT NANNY 03/13/2014 Nurse visit Donte Hastings INFANT NANNY 03/07/2014 Nurse visit Yvonne Cassidy MD 02/27/2014 Nurse visit Jessie Nish INFANT NANNY 02/20/2014 Nurse visit Donte Hastings INFANT NANNY 02/13/2014 Nurse visit Donte Hastings INFANT NANNY 02/13/2014 Procedures Joe Thomas MD 02/07/2014 Office visit Joe Thomas MD 02/06/2014 Nurse visit Yvonne Cassidy MD 01/17/2014 Nurse visit Nidia Darby INFANT NANNY 01/10/2014 Nurse visit Yvonne Cassidy MD 01/02/2014 Nurse visit Yvonne Cassidy MD 12/26/2013 Nurse visit Yvonne Cassidy MD 12/18/2013 Nurse visit Yvonne Cassidy MD 12/12/2013 Nurse visit Yvonne Cassidy MD 12/05/2013 Nurse visit Yvonne Cassidy MD 11/28/2013 Nurse visit Yvonne Cassidy MD 11/21/2013 Nurse visit Yvonne Cassidy MD 11/14/2013 Nurse visit Yvonne Cassidy MD 11/07/2013 Nurse visit Nidia Darby INFANT NANNY 10/31/2013 Nurse visit Nidia Darby INFANT NANNY 10/25/2013 Nurse visit Nidia Darby INFANT NANNY 10/18/2013 Voided Nidia Darby INFANT NANNY 10/10/2013 Voided Yvonne Cassidy MD 10/03/2013 Nurse [...] visit Joe Thomas MD 05/15/2013 Nurse visit Bira Mart MD 05/09/2013 Nurse visit Bria Mart MD 05/01/2013 Nurse visit Bria Mart MD 04/18/2013 Nurse visit Nidia Darby INFANT NANNY 04/04/2013 Nurse visit Nidia Darby INFANT NANNY 03/28/2013 Nurse visit Nidia Darby INFANT NANNY 03/21/2013 Nurse visit Nidia Darby INFANT NANNY 03/13/2013 Nurse visit Nidia Darby INFANT NANNY 03/09/2013 Nurse visit Nidia Darby INFANT NANNY 03/02/2013 Nurse visit Nidia Darby INFANT NANNY 02/21/2013 Nurse visit Nidia Darby INFANT NANNY 02/13/2013 Office visit Nidia Darby INFANT NANNY 02/06/2013 Nurse visit Bria Mart MD 01/31/2013 Nurse visit Bria Mart MD 01/24/2013 Nurse visit Bria Mart MD 01/17/2013 Nurse visit Bira Mart MD 01/10/2013 Nurse visit Bria Mart [...] Mart MD 10/04/2012 Nurse visit Nidia Darby INFANT NANNY 09/27/2012 Nurse visit Bria Mart MD 09/22/2012 [...] Mart MD 06/07/2012 Nurse visit Nidia Darby INFANT NANNY 06/07/2012 Voided Francisco J Jesus DO 06/01/2012 [...] Mart MD 09/08/2011 Office visit Jessie Mock INFANT NANNY 09/01/2011 Nurse visit Bria Mart MD 08/21/2011 [...]
--- OUTSIDE RECORDS SUMMARY | 2017-05-06 18:25 | XMS REPORT ---
Author Author Jessie Mock Organization [facility] Address [address] [place], [place] [id number] Care Team Providers Care Passenger Locomotive Engineer Name Role Phone Jessie Mock PCP Unavailable [...] STEM W/O & W/DYE 04/23/2016 12:00 AM ELECTROCARDIOGRAM TRACING 04/23/2016 12:00 AM [...] Reviewed 08/21/2011 12:00 AM Depo-Medrol 40 mg ND#[id number] Reviewed 03/02/2016 12:00 AM IMMUNOTHERAPY INJECTIONS Reviewed [...] Reviewed 11/27/2011 12:00 AM Depo-Medrol 40 mg [facility]#[id number] Reviewed 12/01/2011 12:00 AM IMMUNOTHERAPY INJECTIONS Reviewed [...] 02/13/2013 12:00 AM Decadron, Per 1 Mg [facility]# [id number] Reviewed 02/13/2013 12:00 AM Depo-Medrol, Per 80 Mg [facility] 2001#[id number] Reviewed 06/05/2013 12:00 AM MAMMOGRAM SCREENING Returned [...] BILI 0.50 mg/dLCALCIUM 10.10 mg/dLeGFR >60 mL/min/1.73 [id number] 10.0 secsINR 1.0 PTT 28.20 secs 08/28/2014 [...] CVX Influenza 06/02/2010 sanofi pasteur PMC Fluzone [id number] Intramuscular Left Deltoid 06/02/2010 02/25/2010 999 Influenza 05/09/2015 sanofi pasteur PMC Fluzone [id number] Intramuscular Left Deltoid 05/09/2015 02/22/2015 141 History [...] Group Number Start Date [facility] [id number] June [facility] Self Insurance Fund *INVALID State Self Insurance [id number] N/A Comp [place] Comp [place] [id number] Wednesday, 2015 History of Encounters Visit Date [...] Cassidy MD 01/08/2016 Office visit Jessie Mock LIVING SKILLS ADVISOR 12/25/2015 Nurse visit Yvonne Cassidy MD 12/09/2015 Nurse visit Yvonne Cassidy MD 12/02/2015 Nurse visit Yvonne Cassidy MD 11/29/2015 Nurse visit Donte eGrberran LIVING SKILLS ADVISOR 11/28/2015 Nurse visit Jessie Mock LIVING SKILLS ADVISOR 11/27/2015 Office visit Jessie Mock LIVING SKILLS ADVISOR 11/25/2015 Office visit Donte Darling LIVING SKILLS ADVISOR 11/18/2015 Nurse visit Donte Darling LIVING SKILLS ADVISOR 11/11/2015 Nurse visit Jessie Mock LIVING SKILLS ADVISOR 11/04/2015 Nurse visit Donte Hastings LIVING SKILLS ADVISOR 10/29/2015 Office visit Jessie Mock LIVING SKILLS ADVISOR 10/28/2015 Nurse visit Jessie Mock LIVING SKILLS ADVISOR 10/21/2015 Nurse visit Glenn Tejeda MD 10/15/2015 Nurse visit Francisco J Jesus DO 10/09/2015 Nurse visit Glenn Tejeda MD 10/02/2015 Office visit April Atkinson LIVING SKILLS ADVISOR 10/01/2015 Nurse visit Jessie Nish LIVING SKILLS ADVISOR 09/11/2015 Nurse visit Yvonne Cassidy MD 09/05/2015 [...] Office visit 05/29/2015 Office visit Karolyn Millan LIVING SKILLS ADVISOR 05/29/2015 Nurse visit Yvonne Cassidy MD 05/14/2015 Nurse visit Francisco J Jesus DO 05/09/2015 Nurse visit Yvonne Cassidy MD 04/30/2015 Nurse visit Yvonne Cassidy MD 04/23/2015 Nurse visit Yvonne Cassidy MD 04/18/2015 Nurse visit Nidia Darby LIVING SKILLS ADVISOR 04/09/2015 Nurse visit Yvonne Cassidy MD 04/01/2015 Nurse visit Yvonne Cassidy MD 03/27/[address] Cody Horvath MD 03/25/2015 [facility] [place] MD 03/19/2015 Nurse visit Yvonne Cassidy MD 03/19/2015 Office visit Nidia Darby LIVING SKILLS ADVISOR 03/04/2015 Nurse visit Yvonne Cassidy MD 02/25/2015 [...] Office visit 12/31/2014 Office visit Karolyn Millan LIVING SKILLS ADVISOR 12/24/2014 Nurse visit Yvonne Cassidy MD 12/17/2014 Nurse visit Yvonne Cassidy MD 12/13/2014 Nurse visit Yvonne Cassidy MD 11/28/2014 Nurse visit Yvonne Cassidy MD 11/19/2014 Nurse visit Yvonne Cassidy MD 11/12/2014 Nurse visit Yvonne Cassidy MD 11/05/2014 Nurse visit Yvonne Cassidy MD 11/05/2014 [facility] [place] MD 10/29/2014 Nurse visit Yvonne Cassidy MD 10/24/2014 Nurse visit Yvonne Cassidy MD 10/15/2014 Nurse visit Yvonne Cassidy MD 10/11/2014 Office visit Karolyn Millan LIVING SKILLS ADVISOR 10/09/2014 Nurse visit Yvonne Cassidy MD 10/04/2014 Nurse visit Yvonne Cassidy MD 09/19/2014 Surgery Karolyn Millan LIVING SKILLS ADVISOR 09/13/2014 Office visit Yvonne Cassidy MD 09/06/2014 Nurse visit Yvonne Cassidy MD 08/28/2014 [facility] Chauncey Hogan MD 08/28/2014 [facility] Joe Thomas MD 08/23/2014 Nurse visit Yvonne Cassidy MD 08/22/2014 Surgery Joe Thomas MD 08/16/2014 Nurse visit Yvonne Cassidy MD 08/07/2014 Nurse visit Yvonne Cassidy MD 08/01/2014 Nurse visit Jessie Mock LIVING SKILLS ADVISOR 07/25/2014 Nurse visit Nidia Darby LIVING SKILLS ADVISOR 07/16/2014 Nurse visit Yvonne Cassidy MD 07/09/2014 [...] Cassidy MD 03/20/2014 Nurse visit Jessie Mock LIVING SKILLS ADVISOR 03/13/2014 Nurse visit Donte Hastings LIVING SKILLS ADVISOR 03/07/2014 Nurse visit Yvonne Cassidy MD 02/27/2014 Nurse visit Jessie Mock LIVING SKILLS ADVISOR 02/20/2014 Nurse visit Donte Hastings LIVING SKILLS ADVISOR 02/13/2014 Nurse visit Donte Hastings LIVING SKILLS ADVISOR 02/13/2014 Procedures Joe Thomas MD 02/07/2014 Office visit Joe Thomas MD 02/06/2014 Nurse visit Yvonne Cassidy MD 01/17/2014 Nurse visit Nidia Darby LIVING SKILLS ADVISOR 01/10/2014 Nurse visit Yvonne Cassidy MD 01/02/2014 Nurse visit Yvonne Cassidy MD 12/26/2013 Nurse visit Yvonne Cassidy MD 12/18/2013 Nurse visit Yvonne Cassidy MD 12/12/2013 Nurse visit Yvonne Cassidy MD 12/05/2013 Nurse visit Yvonne Cassidy MD 11/28/2013 Nurse visit Yvonne Cassidy MD 11/21/2013 Nurse visit Yvonne Cassidy MD 11/14/2013 Nurse visit Yvonne Cassidy MD 11/07/2013 Nurse visit Nidia Darby LIVING SKILLS ADVISOR 10/31/2013 Nurse visit Nidia Darby LIVING SKILLS ADVISOR 10/25/2013 Nurse visit Nidia Darby LIVING SKILLS ADVISOR 10/18/2013 Voided Nidia Darby LIVING SKILLS ADVISOR 10/10/2013 Voided Yvonne Cassidy MD 10/03/2013 Nurse [...] Mart MD 04/18/2013 Nurse visit Nidia Darby LIVING SKILLS ADVISOR 04/04/2013 Nurse visit Nidia Darby LIVING SKILLS ADVISOR 03/28/2013 Nurse visit Nidia Darby LIVING SKILLS ADVISOR 03/21/2013 Nurse visit Nidia Darby LIVING SKILLS ADVISOR 03/13/2013 Nurse visit Nidia Darby LIVING SKILLS ADVISOR 03/09/2013 Nurse visit Nidia Darby LIVING SKILLS ADVISOR 03/02/2013 Nurse visit Nidia Darby LIVING SKILLS ADVISOR 02/21/2013 Nurse visit Nidia Darby LIVING SKILLS ADVISOR 02/13/2013 Office visit Nidia Darby LIVING SKILLS ADVISOR 02/06/2013 Nurse visit Bria Mart MD 01/31/2013 [...] Mart MD 10/04/2012 Nurse visit Nidia Darby LIVING SKILLS ADVISOR 09/27/2012 Nurse visit Bria Mart MD 09/22/2012 [...] Mart MD 06/07/2012 Nurse visit Nidia Darby LIVING SKILLS ADVISOR 06/07/2012 Voided Francisco J Jesus DO 06/01/2012 [...]
--- OUTSIDE RECORDS SUMMARY | 2017-05-06 18:30 | XMS REPORT ---
Author Author Yvonne Cassidy Organization [facility] Address [address] [place], [place] [id number] Care Team Providers Care Reamer Hand Name Role Phone Yvonne Cassidy PCP Yvonne [...] BY MOUTH EVERY DAY for 30 days meloxicam 15 mg oral tablet 07/03/2015 TAKE 1 TABLET BY MOUTH ONCE DAILY Synthroid 137 mcg oral tablet 08/24/2016 take [...] 1 TABLET BY MOUTH ONCE EVERY DAY meloxicam 15 mg oral tablet 04/06/2017 10/03/2017 TAKE 1 TABLET BY MOUTH ONCE EVERY DAY lovastatin 20 mg oral tablet 04/15/2017 take 1 tablet (20 mg) by oral route once daily with the evening meal for 30 days alprazolam 0.25 mg oral tablet,disintegrating 05/03/2017 06/02/2017 dissolve 1 tablet by oral route daily as needed for 30 days Toprol XL 50 mg oral tablet extended release 24 hr 05/03/2017 take 1 tablet by oral route daily for 30 days ProAir HFA 90 mcg/actuation inhalation HFA aerosol inhaler 05/03/2017 INHALE 1-2 PUFFS BY MOUTH EVERY 4 TO 6 HOURS NEEDED Name Start Date Expiration Date SIG Comments [...] HC BMI BSA BMI Percentile O2 Sat(%) 05/03/2017 2:43:00 PM 127 mmHg 80 mmHg 71 bpm 18 rpm 98.2 F 231.375 lbs 66.5 in 36.79 kg/m2 2.22 m2 99 % 04/05/2017 10:15:00 AM 125 mmHg 69 mmHg 65 bpm 18 rpm 97.7 F 225 lbs 66.5 in 35.7715 kg/m 2.1883 m 97 % 03/01/2017 3:50:00 PM 122 mmHg [...] Reviewed 08/21/2011 12:00 AM Depo-Medrol 40 mg [facility]#[id number] Reviewed 03/02/2016 12:00 AM IMMUNOTHERAPY INJECTIONS Reviewed [...] Reviewed 11/27/2011 12:00 AM Depo-Medrol 40 mg [facility]#[id number] Reviewed 12/01/2011 12:00 AM IMMUNOTHERAPY INJECTIONS Reviewed [...] Reviewed 04/28/2017 12:00 AM IMMUNOTHERAPY INJECTIONS Reviewed 05/03/2017 12:00 AM IMMUNOTHERAPY INJECTIONS Reviewed 05/10/2012 12:00 [...] 12:00 AM Decadron, Per 1 Mg [facility]# [address]-82 Reviewed 02/13/2013 12:00 AM Depo-Medrol, Per 80 Mg [facility]#[id number] Reviewed 06/05/2013 12:00 AM MAMMOGRAM SCREENING Reviewed [...] CVX Influenza 06/02/2010 sanofi pasteur PMC Fluzone [id number] Intramuscular Left Deltoid 06/02/2010 02/25/2010 999 Influenza 05/09/2015 sanofi pasteur PMC Fluzone [id number] Intramuscular Left Deltoid 05/09/2015 02/22/2015 141 Pneumococcal 06/29/2016 Crrnn-Ewfquz-Gfgsbgr-Pratyesha WAL Prevnar 13 [id number] Intramuscular Right Deltoid 06/29/2016 09/14/2012 133 Zostavax [...] to other allergen Apr 28 2017 4:32PM Allergic rhinitis; due to other allergen May 03 2017 3:20PM Encounter for screening mammogram for breast cancer May 05 2017 11:06AM Payers Insurance Name Company Name Plan Name Plan Number Policy Number Policy Group Number Start Date [employer] [place] [id number] June Pending sale to [facility] Self Insurance Fund *INVALID State Self Insurance [id number] N/A Comp [place] [id number] Wednesday, 2015 History of Encounters Visit Date Visit Type Provider 05/03/2017 Office visit Yvonne Cassidy MD 04/28/2017 Nurse visit Yvonne Cassidy MD 2017 Nurse visit Yvonne Cassidy MD 04/05/2017 Office visit Jessie Mock APRN 03/30/2017 [...] 06/16/2016 Office visit Yvonne Cassidy MD 06/14/2016 [facility] MD 06/09/2016 Nurse visit Yvonne Cassidy MD 06/02/2016 Office visit 06/02/2016 Office visit Karolyn Millan KNITTING SUPERVISOR 06/01/2016 Nurse visit Yvonne Cassidy MD 05/27/2016 Nurse visit Yvonne Cassidy MD 05/11/2016 Nurse visit Yvonne Cassidy MD 05/05/2016 Nurse visit Yvonne Cassidy MD 04/29/2016 Nurse visit Yvonne Cassidy MD 04/23/2016 Office visit Jessie Mock KNITTING SUPERVISOR 04/13/2016 Nurse visit Yvonne Cassidy MD 04/07/2016 Nurse visit Yvonne Cassidy MD 04/01/2016 Office visit Jessie Mock KNITTING SUPERVISOR 03/26/2016 Nurse visit Yvonne Cassidy MD 03/17/2016 Nurse visit Yvonne Cassidy MD 03/11/2016 Nurse visit Yvonne Cassidy MD 03/04/2016 Office visit Jessie Mock KNITTING SUPERVISOR 03/02/2016 Nurse visit Yvonne Cassidy MD 02/19/2016 Nurse visit Yvonne Cassidy MD 02/12/2016 Office visit Jessie Mock KNITTING SUPERVISOR 02/03/2016 Nurse visit Yvonne Cassidy MD 01/27/2016 Nurse visit Yvonne Cassidy MD 01/15/2016 Nurse visit Yvonne Cassidy MD 01/08/2016 Office visit Jessie Mock KNITTING SUPERVISOR 12/25/2015 Nurse visit Yvonne Cassidy MD 12/09/2015 Nurse visit Yvonne Cassidy MD 12/02/2015 Nurse visit Yvonne Cassidy MD 11/29/2015 Nurse visit Donte Hastings KNITTING SUPERVISOR 11/28/2015 Nurse visit Jessie Mock KNITTING SUPERVISOR 11/27/2015 Office visit Jessie Mock KNITTING SUPERVISOR 11/25/2015 Office visit Donte Hastings KNITTING SUPERVISOR 11/18/2015 Nurse visit Donte Hastings KNITTING SUPERVISOR 11/11/2015 Nurse visit Jessie Mock KNITTING SUPERVISOR 11/04/2015 Nurse visit Donte Hastings KNITTING SUPERVISOR 10/29/2015 Office visit Jessie Mock KNITTING SUPERVISOR 10/28/2015 Nurse visit Jessie Mock KNITTING SUPERVISOR 10/21/2015 Nurse visit Glenn Tejeda MD 10/15/2015 Nurse visit Francisco J Jesus DO 10/09/2015 Nurse visit Glenn Tejeda MD 10/02/2015 Office visit Apriljoana Sotelogordy KNITTING SUPERVISOR 10/01/2015 Nurse visit Jessie Mock KNITTING SUPERVISOR 09/11/2015 Nurse visit Yvonne Cassidy MD [...] Office visit 05/29/2015 Office visit Karolyn Millan KNITTING SUPERVISOR 05/29/2015 Nurse visit Yvonne Cassidy MD 05/14/2015 Nurse visit Francisco J Jesus DO 05/09/2015 Nurse visit Yvonne Cassidy MD 04/30/2015 Nurse visit Yvonne Cassidy MD 04/23/2015 Nurse visit Yvonne Cassidy MD 04/18/2015 Nurse visit Nidia Darby KNITTING SUPERVISOR 04/09/2015 Nurse visit Yvonne Cassidy MD 04/01/2015 Nurse visit Yvonne Cassidy MD 03/27/[address] Cody Horvath MD 03/25/2015 [facility] MD 03/19/2015 Nurse visit Yvonne Cassidy MD 03/19/2015 Office visit Nidia Darby KNITTING SUPERVISOR 03/04/2015 Nurse visit Yvonne Cassidy MD 02/25/2015 Nurse visit Yvonne Cassidy MD 02/18/2015 Nurse visit Yvonne Cassidy MD 02/11/2015 Nurse visit Yvonne Csasidy MD 02/04/2015 Nurse visit Yvonne Cassidy MD 01/28/2015 Nurse visit Yvonne Cassidy MD 01/21/2015 Nurse visit Yvonne Cassidy MD 01/15/2015 Nurse visit Yvonne Cassidy MD 01/07/2015 Nurse visit Yvonne Cassidy MD 12/31/2014 Nurse visit Yvonne Cassidy MD 12/31/2014 Office visit 12/31/2014 Office visit 12/31/2014 Office visit Karolyn Millan KNITTING SUPERVISOR 12/24/2014 Nurse visit Yvonne Cassidy MD 12/17/2014 Nurse visit Yvonne Cassidy MD 12/13/2014 Nurse visit Yvonne Cassidy MD 11/28/2014 Nurse visit Yvonne Cassidy MD 11/19/2014 Nurse visit Yvonne Cassidy MD 11/12/2014 Nurse visit Yvonne Cassidy MD 11/05/2014 Nurse visit Yvonne Cassidy MD 11/05/2014 [facility] Darin Park MD 10/29/2014 Nurse visit Yvonne Cassidy MD 10/24/2014 Nurse visit Yvonne Cassidy MD 10/15/2014 Nurse visit Yvonne Cassidy MD 10/11/2014 Office visit Karolyn MZafar Millan KNITTING SUPERVISOR 10/09/2014 Nurse visit Yvonne Cassidy MD 10/04/2014 Nurse visit Yvonne Cassidy MD 09/19/2014 Surgery Karolyn DowlingZafar Millan KNITTING SUPERVISOR 09/13/2014 Office visit Yvonne Cassidy MD 09/06/2014 Nurse visit Yvonne Cassidy MD 08/28/2014 [facility] Chauncey Hogan MD 08/28/2014 [facility] Joe Thomas MD 08/23/2014 Nurse visit Yvonne Cassidy MD 08/22/2014 Surgery Joe Thomas MD 08/16/2014 Nurse visit Yvonne Cassidy MD 08/07/2014 Nurse visit Yvonne Cassidy MD 08/01/2014 Nurse visit Jessie Mock KNITTING SUPERVISOR 07/25/2014 Nurse visit Nidia Darby KNITTING SUPERVISOR 07/16/2014 Nurse visit Yvonne Cassidy MD [...] Cassidy MD 03/20/2014 Nurse visit Jessie Mock KNITTING SUPERVISOR 03/13/2014 Nurse visit Donte Hastings KNITTING SUPERVISOR 03/07/2014 Nurse visit Yvonne Cassidy MD 02/27/2014 Nurse visit Jessie Mock KNITTING SUPERVISOR 02/20/2014 Nurse visit Donte Hastings KNITTING SUPERVISOR 02/13/2014 Nurse visit Donte Hastings KNITTING SUPERVISOR 02/13/2014 Procedures Joe Thomas MD 02/07/2014 Office visit Joe Thomas MD 02/06/2014 Nurse visit Yvonne Cassidy MD 01/17/2014 Nurse visit Nidia Darby KNITTING SUPERVISOR 01/10/2014 Nurse visit Yvonne Cassidy MD 01/02/2014 Nurse visit Yvonne Cassidy MD 12/26/2013 Nurse visit Yvonne Cassidy MD 12/18/2013 Nurse visit Yvonne Cassidy MD 12/12/2013 Nurse visit Yvonne Cassidy MD 12/05/2013 Nurse visit Yvonne Cassidy MD 11/28/2013 Nurse visit Yvonne Cassidy MD 11/21/2013 Nurse visit Yvonne Cassidy MD 11/14/2013 Nurse visit Yvonne Cassidy MD 11/07/2013 Nurse visit Nidia Darby KNITTING SUPERVISOR 10/31/2013 Nurse visit Nidia Darby KNITTING SUPERVISOR 10/25/2013 Nurse visit Nidia Darby KNITTING SUPERVISOR 10/18/2013 Voided Nidia Darby KNITTING SUPERVISOR 10/10/2013 Voided Yvonne Cassidy MD 10/03/2013 Nurse visit Yvonne Cassidy MD 09/18/2013 Office visit Yvonne Cassidy MD 09/15/2013 Nurse visit Yvonne Cassidy MD 09/08/2013 Office visit Joe Thomas MD 09/05/2013 Nurse visit Yvonne Cassidy MD 08/29/2013 Nurse visit Yvonne Cassidy MD 08/21/2013 Nurse visit Yvonne Cassidy MD 08/18/2013 Office visit Robinson Rodrigeuz PA-C 08/14/2013 Nurse visit Yvonne Cassidy MD [...] Mart MD 04/18/2013 Nurse visit Nidia Darby KNITTING SUPERVISOR 04/04/2013 Nurse visit Nidia Darby KNITTING SUPERVISOR 03/28/2013 Nurse visit Nidia Darby KNITTING SUPERVISOR 03/21/2013 Nurse visit Nidia Darby KNITTING SUPERVISOR 03/13/2013 Nurse visit Nidia Darby KNITTING SUPERVISOR 03/09/2013 Nurse visit Nidia Darby KNITTING SUPERVISOR 03/02/2013 Nurse visit Nidia Darby KNITTING SUPERVISOR 02/21/2013 Nurse visit Nidia Darby KNITTING SUPERVISOR 02/13/2013 Office visit Nidia Darby KNITTING SUPERVISOR 02/06/2013 Nurse visit Bria Mart MD [...] Mart MD 10/04/2012 Nurse visit Nidia Darby KNITTING SUPERVISOR 09/27/2012 Nurse visit Bria Mart MD [...] Mart MD 06/07/2012 Nurse visit Nidia Darby KNITTING SUPERVISOR 06/07/2012 Voided Francisco J Jesus DO [...] visit Bria Mart MD 02/02/2012 Nurse visit rBia Mart MD 01/26/2012 Nurse visit Bria Mart [...] Mart MD 09/08/2011 Office visit Jessie Mock KNITTING SUPERVISOR 09/01/2011 Nurse visit Bria Mart MD [...]
--- OUTSIDE RECORDS SUMMARY | 2017-05-06 18:34 | XMS REPORT ---
Author Author Yvonne Cassidy Organization [facility] Address [address] [place], [place] [id number] Care Team Providers Care Boat Repairer Name Role Phone Yvonne Cassidy PCP Yvonne [...] Reviewed 08/21/2011 12:00 AM Depo-Medrol 40 mg [facility]#[id number] Reviewed 03/02/2016 12:00 AM IMMUNOTHERAPY INJECTIONS Reviewed [...] Reviewed 11/27/2011 12:00 AM Depo-Medrol 40 mg [facility]#[id number] Reviewed 12/01/2011 12:00 AM IMMUNOTHERAPY INJECTIONS Reviewed [...] 02/13/2013 12:00 AM Decadron, Per 1 Mg [facility]# [address]-47 Reviewed 02/13/2013 12:00 AM Depo-Medrol, Per 80 Mg [facility]#0929-1181-55 Reviewed 06/05/2013 12:00 AM MAMMOGRAM SCREENING Reviewed [...] CVX Influenza 06/02/2010 sanofi pasteur PMC Fluzone [id number] Intramuscular Left Deltoid 06/02/2010 02/25/2010 999 Influenza 05/09/2015 sanofi pasteur PMC Fluzone [id number] Intramuscular Left Deltoid 05/09/2015 02/22/2015 141 Pneumococcal 06/29/2016 Uxgzk-Mosyxa-Axvjdkm-Praxis WAL Prevnar 13 [id number] Intramuscular Right Deltoid 06/29/2016 09/14/2012 133 Zostavax [...] to other allergen Feb 01 2017 4:00PM Payers Insurance Name Company Name Plan Name Plan Number Policy Number Policy Group Number [facility] Date [id number] June [facility] Self Insurance Fund *INVALID State Self Insurance [id number] N/A Comp Cement Comp Cement [id number] Wednesday, 2015 History of Encounters Visit Date Visit Type Provider 02/01/2017 Nurse visit Yvonne Cassidy MD 01/25/2017 Nurse visit Yvonne Cassidy MD 01/12/2017 Nurse visit Yvonne Cassidy MD 01/05/2017 Nurse visit Yvonne Cassidy MD 12/30/2016 Nurse visit Yvonne Cassidy MD 12/22/2016 Nurse visit Yvonne Cassidy MD 12/08/2016 Nurse visit Donte Hastings RISK CONTROL FIELD REPRESENTATIVE 12/02/2016 Nurse visit Yvonne Cassidy MD 11/16/2016 Nurse visit Yvonne Cassidy MD 11/10/2016 Nurse visit Yvonne Cassidy MD 11/02/2016 Nurse visit Donte Hastings RISK CONTROL FIELD REPRESENTATIVE 10/28/2016 Nurse visit Yvonne Cassidy MD 10/06/2016 [...] Cassidy MD 07/14/2016 Nurse visit Donte Hastings RISK CONTROL FIELD REPRESENTATIVE 07/06/2016 Nurse visit Yvonne Cassidy MD 06/29/2016 Nurse visit Yvonne Cassidy MD 06/24/2016 Nurse visit Yvonne Cassidy MD 06/16/2016 Office visit Yvonne Cassidy MD 06/14/2016 [facility] Alexander Park MD 06/09/2016 Nurse visit Yvonne Cassidy MD 06/02/2016 Office visit 06/02/2016 Office visit Karolyn Millan RISK CONTROL FIELD REPRESENTATIVE 06/01/2016 Nurse visit Yvonne Cassidy MD 05/27/2016 Nurse visit Yvonne Cassidy MD 05/11/2016 Nurse visit Yvonne Cassidy MD 05/05/2016 Nurse visit Yvonne Cassidy MD 04/29/2016 Nurse visit Yvonne Cassidy MD 04/23/2016 Office visit Jessie Mock RISK CONTROL FIELD REPRESENTATIVE 04/13/2016 Nurse visit Yvonne Cassidy MD 04/07/2016 Nurse visit Yvonne Cassidy MD 04/01/2016 Office visit Jessie Mock RISK CONTROL FIELD REPRESENTATIVE 03/26/2016 Nurse visit Yvonne Cassidy MD 03/17/2016 Nurse visit Yvonne Cassidy MD 03/11/2016 Nurse visit Yvonne Cassidy MD 03/04/2016 Office visit Jessie Mock RISK CONTROL FIELD REPRESENTATIVE 03/02/2016 Nurse visit Yvonne Cassidy MD 02/19/2016 Nurse visit Yvonne Cassidy MD 02/12/2016 Office visit Jessie Mock RISK CONTROL FIELD REPRESENTATIVE 02/03/2016 Nurse visit Yvonne Cassidy MD 01/27/2016 Nurse visit Yvonne Cassidy MD 01/15/2016 Nurse visit Yvonne Cassidy MD 01/08/2016 Office visit Jessie Mock RISK CONTROL FIELD REPRESENTATIVE 12/25/2015 Nurse visit Yvonne Cassidy MD 12/09/2015 Nurse visit Yvonne Cassidy MD 12/02/2015 Nurse visit Yvonne Cassidy MD 11/29/2015 Nurse visit Donte Hastings RISK CONTROL FIELD REPRESENTATIVE 11/28/2015 Nurse visit Jessie Mock RISK CONTROL FIELD REPRESENTATIVE 11/27/2015 Office visit Jessie Mock RISK CONTROL FIELD REPRESENTATIVE 11/25/2015 Office visit Donte Hastings RISK CONTROL FIELD REPRESENTATIVE 11/18/2015 Nurse visit Donte Hastings RISK CONTROL FIELD REPRESENTATIVE 11/11/2015 Nurse visit Jessie Mock RISK CONTROL FIELD REPRESENTATIVE 11/04/2015 Nurse visit Donte Hastings RISK CONTROL FIELD REPRESENTATIVE 10/29/2015 Office visit Jessie Mock RISK CONTROL FIELD REPRESENTATIVE 10/28/2015 Nurse visit Jessie Mock RISK CONTROL FIELD REPRESENTATIVE 10/21/2015 Nurse visit Glenn Tejeda MD 10/15/2015 Nurse visit Francisco J Jseus DO 10/09/2015 Nurse visit Glenn Tejeda MD 10/02/2015 Office visit April Atkinson RISK CONTROL FIELD REPRESENTATIVE 10/01/2015 Nurse visit Jessie Mock RISK CONTROL FIELD REPRESENTATIVE 09/11/2015 Nurse visit Yvonne Cassidy MD 09/05/2015 [...] Office visit 05/29/2015 Office visit Karolyn Millan RISK CONTROL FIELD REPRESENTATIVE 05/29/2015 Nurse visit Yvonne Cassidy MD 05/14/2015 Nurse visit Francisco J Jesus DO 05/09/2015 Nurse visit Yvonne Cassidy MD 04/30/2015 Nurse visit Yvonne Cassidy MD 04/23/2015 Nurse visit Yvonne Cassidy MD 04/18/2015 Nurse visit Nidia Darby RISK CONTROL FIELD REPRESENTATIVE 04/09/2015 Nurse visit Yvonne Cassidy MD 04/01/2015 Nurse visit Yvonne Cassidy MD 03/27/[address] Cody Horvath MD 03/25/2015 [facility] Alexander Park MD 03/19/2015 Nurse visit Yvonne Cassidy MD 03/19/2015 Office visit Nidia Darby RISK CONTROL FIELD REPRESENTATIVE 03/04/2015 Nurse visit Yvonne Cassidy MD 02/25/2015 [...] Office visit 12/31/2014 Office visit Karolyn Millan RISK CONTROL FIELD REPRESENTATIVE 12/24/2014 Nurse visit Yvonne Cassidy MD 12/17/2014 Nurse visit Yvonne Cassidy MD 12/13/2014 Nurse visit Yvonne Cassidy MD 11/28/2014 Nurse visit Yvonne Cassidy MD 11/19/2014 Nurse visit Yvonne Cassidy MD 11/12/2014 Nurse visit Yvonne Cassidy MD 11/05/2014 Nurse visit Yvonne Cassidy MD 11/05/2014 [facility] Alexander Park MD 10/29/2014 Nurse visit Yvonne Cassidy MD 10/24/2014 Nurse visit Yvonne Cassidy MD 10/15/2014 Nurse visit Yvonne Cassidy MD 10/11/2014 Office visit Karolyn Millan RISK CONTROL FIELD REPRESENTATIVE 10/09/2014 Nurse visit Yvonne Cassidy MD 10/04/2014 Nurse visit Yvonne Cassidy MD 09/19/2014 Surgery Karolyn NiteshZafar Millan RISK CONTROL FIELD REPRESENTATIVE 09/13/2014 Office visit Yvonne Cassidy MD 09/06/2014 Nurse visit Yvonne Cassidy MD 08/28/2014 Hospital Chauncey Hogan MD 08/28/2014 [facility] Joe Thomas MD 08/23/2014 Nurse visit Yvonne Cassidy MD 08/22/2014 Surgery Joe Thomas MD 08/16/2014 Nurse visit Yvonne Cassidy MD 08/07/2014 Nurse visit Yvonne Cassidy MD 08/01/2014 Nurse visit Jessie Mock RISK CONTROL FIELD REPRESENTATIVE 07/25/2014 Nurse visit Niida Darby RISK CONTROL FIELD REPRESENTATIVE 07/16/2014 Nurse visit Yvonne Cassidy MD 07/09/2014 [...] Cassidy MD 03/20/2014 Nurse visit Jessie Mock RISK CONTROL FIELD REPRESENTATIVE 03/13/2014 Nurse visit Donte Hastings RISK CONTROL FIELD REPRESENTATIVE 03/07/2014 Nurse visit Yvonne Cassidy MD 02/27/2014 Nurse visit Jessie Mock RISK CONTROL FIELD REPRESENTATIVE 02/20/2014 Nurse visit Donte Hastings RISK CONTROL FIELD REPRESENTATIVE 02/13/2014 Nurse visit Donte Hastings RISK CONTROL FIELD REPRESENTATIVE 02/13/2014 Procedures Joe Thomas MD 02/07/2014 Office visit Joe Thomas MD 02/06/2014 Nurse visit Yvonne Cassidy MD 01/17/2014 Nurse visit Nidia Darby RISK CONTROL FIELD REPRESENTATIVE 01/10/2014 Nurse visit Yvonne Cassidy MD 01/02/2014 Nurse visit Yvonne Cassidy MD 12/26/2013 Nurse visit Yvonne Cassidy MD 12/18/2013 Nurse visit Yvonne Cassidy MD 12/12/2013 Nurse visit Yvonne Cassidy MD 12/05/2013 Nurse visit Yvonne Cassidy MD 11/28/2013 Nurse visit Yvonne Cassidy MD 11/21/2013 Nurse visit Yvonne Cassidy MD 11/14/2013 Nurse visit Yvonne Cassidy MD 11/07/2013 Nurse visit Nidia Darby RISK CONTROL FIELD REPRESENTATIVE 10/31/2013 Nurse visit Nidia Darby RISK CONTROL FIELD REPRESENTATIVE 10/25/2013 Nurse visit Nidia Darby RISK CONTROL FIELD REPRESENTATIVE 10/18/2013 Voided Nidia Darby RISK CONTROL FIELD REPRESENTATIVE 10/10/2013 Voided Yvonne Cassidy MD 10/03/2013 Nurse [...] visit Bria Mart MD 04/18/2013 Nurse visit Nidiafarideh Darby RISK CONTROL FIELD REPRESENTATIVE 04/04/2013 Nurse visit Nidiafarideh Darby RISK CONTROL FIELD REPRESENTATIVE 03/28/2013 Nurse visit Nidiafarideh Darby RISK CONTROL FIELD REPRESENTATIVE 03/21/2013 Nurse visit Nidia Darby RISK CONTROL FIELD REPRESENTATIVE 03/13/2013 Nurse visit Nidia Darby RISK CONTROL FIELD REPRESENTATIVE 03/09/2013 Nurse visit Nidia Darby RISK CONTROL FIELD REPRESENTATIVE 03/02/2013 Nurse visit Nidia Darby RISK CONTROL FIELD REPRESENTATIVE 02/21/2013 Nurse visit Nidia Darby RISK CONTROL FIELD REPRESENTATIVE 02/13/2013 Office visit Nidia Darby RISK CONTROL FIELD REPRESENTATIVE 02/06/2013 Nurse visit Bria Mart MD 01/31/2013 [...] Mart MD 10/04/2012 Nurse visit Nidia Darby RISK CONTROL FIELD REPRESENTATIVE 09/27/2012 Nurse visit Bria Mart MD 09/22/2012 Nurse visit Bria Mart MD 09/12/2012 Nurse visit Bria Mart MD 09/05/2012 Nurse visit Francsico J Jesus DO 08/31/2012 Nurse visit Bria [...] MD 06/07/2012 Nurse visit Nidia GonzalesZafar Darby RISK CONTROL FIELD REPRESENTATIVE 06/07/2012 Voided Francisco J Edin ISSA 06/01/2012 [...] Mart MD 09/08/2011 Office visit Jessie Mock RISK CONTROL FIELD REPRESENTATIVE 09/01/2011 Nurse visit Bria Mart MD 08/21/2011 [...]
--- OUTSIDE RECORDS SUMMARY | 2017-05-06 18:38 | XMS REPORT ---
Author Author Jessie Mock [facility] Address [address] [place], [place] [address] Care Team Providers Care Earth Science Technical Officer Name Role Phone Jessie Mock PCP Unavailable [...] Depo-Medrol 40 mg [facility]#[id number] Reviewed 03/02/2016 12:00 AM IMMUNOTHERAPY INJECTIONS Reviewed 03/06/2016 12:00 AM IMMUNOTHERAPY INJECTIONS Reviewed 09/08/2011 12:00 [...] Depo-Medrol 40 mg [facility]#[id number] Reviewed 12/01/2011 12:00 AM IMMUNOTHERAPY INJECTIONS Reviewed [...] 1 Mg [facility]# [address]-70 Reviewed 02/13/2013 12:00 AM Depo-Medrol, Per 80 Mg [facility]#5390-8979-31 Reviewed 06/05/2013 12:00 AM MAMMOGRAM SCREENING Returned [...] BILI 0.50 mg/dLCALCIUM 10.10 mg/dLeGFR >60 mL/min/1.73 [id number] 10.0 secsINR 1.0 PTT 28.20 secs 08/28/2014 [...] CVX Influenza 06/02/2010 sanofi pasteur PMC Fluzone [id number] Intramuscular Left Deltoid 06/02/2010 02/25/2010 999 Influenza 05/09/2015 sanofi pasteur PMC Fluzone [id number] Intramuscular Left Deltoid 05/09/2015 02/22/2015 141 History [...] to other allergen Mar 06 2016 11:26AM Payers Insurance Name Company Name Plan Name Plan Number Policy Number Policy Group Number Start Date [facility] [id number] June [facility] Self Insurance Fund *INVALID State Self Insurance [id number] N/A Comp [place] [id number] Wednesday, 2015 History of Encounters Visit Date Visit Type Provider 03/04/2016 Office visit Jessie Mock APRN 03/02/2016 Nurse visit Yvonne Cassidy MD 02/19/2016 Nurse visit Yvonne Cassidy MD 02/12/2016 Office visit Jessie Mock PELLET MACHINE OPERATOR 02/03/2016 Nurse visit Yvonne Cassidy MD 01/27/2016 Nurse visit Yvonne Cassidy MD 01/15/2016 Nurse visit Yvonne Cassidy MD 01/08/2016 Office visit Jessie Mock PELLET MACHINE OPERATOR 12/25/2015 Nurse visit Yvonne Cassidy MD 12/09/2015 Nurse visit Yvonne Cassidy MD 12/02/2015 Nurse visit Yvonne Cassidy MD 11/29/2015 Nurse visit Donte Hastings APRN 11/28/2015 Nurse visit Jessie Mock PELLET MACHINE OPERATOR 11/27/2015 Office visit Jessie Mock APRN 11/25/2015 Office visit Donte Hastings APRN 11/18/2015 Nurse visit Donte Hastings APRN 11/11/2015 Nurse visit Jessie Mock PELLET MACHINE OPERATOR 11/04/2015 Nurse visit Donte Hastings APRN 10/29/2015 Office visit Jessie Mock PELLET MACHINE OPERATOR 10/28/2015 Nurse visit Jessie Mock PELLET MACHINE OPERATOR 10/21/2015 Nurse visit Glenn Tejeda MD 10/15/2015 Nurse visit Francisco J Jesus DO 10/09/2015 Nurse visit Glenn Tejeda MD 10/02/2015 Office visit April Atkinson PELLET MACHINE OPERATOR 10/01/2015 Nurse visit Jessie Mock PELLET MACHINE OPERATOR 09/11/2015 Nurse visit Yvonne Cassidy [...] Office visit 05/29/2015 Office visit Karolyn Millan PELLET MACHINE OPERATOR 05/29/2015 Nurse visit Yvonne Cassidy MD 05/14/2015 Nurse visit Francisco J Jesus DO 05/09/2015 Nurse visit Yvonne Cassidy MD 04/30/2015 Nurse visit Yvonne Cassidy MD 04/23/2015 Nurse visit Yvonne Cassidy MD 04/18/2015 Nurse visit Nidia Darby PELLET MACHINE OPERATOR 04/09/2015 Nurse visit Yvonne Cassidy MD 04/01/2015 Nurse visit Yvonne Cassidy MD 03/27/[address] Cody Horvath MD 03/25/2015 [facility] Alexander Park MD 03/19/2015 Nurse visit Yvonne Cassidy MD 03/19/2015 Office visit Nidia Daryb PELLET MACHINE OPERATOR 03/04/2015 Nurse visit Yvonne Cassidy [...] Office visit 12/31/2014 Office visit Karolyn Millan PELLET MACHINE OPERATOR 12/24/2014 Nurse visit Yvonne Cassidy [...] Cassidy MD 10/11/2014 Office visit Karolyn Millan PELLET MACHINE OPERATOR 10/09/2014 Nurse visit Yvonne Cassidy MD 10/04/2014 Nurse visit Yvonne Cassidy MD 09/19/2014 Surgery Karolyn Millan PELLET MACHINE OPERATOR 09/13/2014 Office visit Yvonne Cassidy MD 09/06/2014 Nurse visit Yvonne Cassidy MD 08/28/2014 [facility] Chauncey Hogan MD 08/28/2014 [facility] Joe Thomas MD 08/23/2014 Nurse visit Yvonne Cassidy MD 08/22/2014 Surgery Joe Thomas MD 08/16/2014 Nurse visit Yvonne Cassidy MD 08/07/2014 Nurse visit Yvonne Cassidy MD 08/01/2014 Nurse visit Jessie Mock PELLET MACHINE OPERATOR 07/25/2014 Nurse visit Nidia Darby PELLET MACHINE OPERATOR 07/16/2014 Nurse visit Yvonne Cassidy MD 07/09/2014 Nurse visit Yvonne Cassidy MD 07/03/2014 Nurse visit Yvonne aCssidy MD 06/28/2014 Nurse visit Yvonne Cassidy MD [...] Cassidy MD 03/20/2014 Nurse visit Jessie Mock PELLET MACHINE OPERATOR 03/13/2014 Nurse visit Donte Hastings PELLET MACHINE OPERATOR 03/07/2014 Nurse visit Yvonne Cassidy MD 02/27/2014 Nurse visit Jessie Mock PELLET MACHINE OPERATOR 02/20/2014 Nurse visit Donte Hastings PELLET MACHINE OPERATOR 02/13/2014 Nurse visit Donte Hastings PELLET MACHINE OPERATOR 02/13/2014 Procedures Joe Thomas MD 02/07/2014 Office visit Joe Thomas MD 02/06/2014 Nurse visit Yvonne Cassidy MD 01/17/2014 Nurse visit Nidia Darby PELLET MACHINE OPERATOR 01/10/2014 Nurse visit Yvonne Cassidy MD 01/02/2014 Nurse visit Yvonne Cassidy MD 12/26/2013 Nurse visit Yvonne Cassidy MD 12/18/2013 Nurse visit Yvonne Cassidy MD 12/12/2013 Nurse visit Yvonne Cassidy MD 12/05/2013 Nurse visit Yvonne Cassidy MD 11/28/2013 Nurse visit Yvonne Cassiyd MD 11/21/2013 Nurse visit Yvonne Cassidy MD 11/14/2013 Nurse visit Yvonne Cassidy MD 11/07/2013 Nurse visit Nidia Darby PELLET MACHINE OPERATOR 10/31/2013 Nurse visit Nidia Darby PELLET MACHINE OPERATOR 10/25/2013 Nurse visit Nidia Darby PELLET MACHINE OPERATOR 10/18/2013 Voided Nidia Darby PELLET MACHINE OPERATOR 10/10/2013 Voided Yvnone Cassidy MD 10/03/2013 Nurse visit Yvonne Cassidy [...] visit Bria Mart MD 05/18/2013 Office visit oJe Thomas MD 05/15/2013 Nurse visit Bria Mart MD 05/09/2013 Nurse visit Bria Mart MD 05/01/2013 Nurse visit Bria Mart MD 04/18/2013 Nurse visit Nidia Darby PELLET MACHINE OPERATOR 04/04/2013 Nurse visit Nidia Darby PELLET MACHINE OPERATOR 03/28/2013 Nurse visit Nidia Darby PELLET MACHINE OPERATOR 03/21/2013 Nurse visit Nidia Darby PELLET MACHINE OPERATOR 03/13/2013 Nurse visit Nidia Darby PELLET MACHINE OPERATOR 03/09/2013 Nurse visit Nidia Darby PELLET MACHINE OPERATOR 03/02/2013 Nurse visit Nidia Darby PELLET MACHINE OPERATOR 02/21/2013 Nurse visit Nidia Darby PELLET MACHINE OPERATOR 02/13/2013 Office visit Nidia Darby PELLET MACHINE OPERATOR 02/06/2013 Nurse visit Bria Mart [...] Mart MD 10/04/2012 Nurse visit Nidia Darby PELLET MACHINE OPERATOR 09/27/2012 Nurse visit Bria Mart [...] Mart MD 06/07/2012 Nurse visit Nidia Darby PELLET MACHINE OPERATOR 06/07/2012 Voided Francisco J Jesus [...] Mart MD 09/08/2011 Office visit Jessie Mock PELLET MACHINE OPERATOR 09/01/2011 Nurse visit Bria Mart [...]
--- OUTSIDE RECORDS SUMMARY | 2017-05-06 18:42 | XMS REPORT ---
Author Author Yvonne Cassidy [facility] Address [address] [place], [place] [id number] Care Team Providers Care Power System Dispatcher Name Role Phone Yvonne Cassidy PCP Allergies [...] HFA 90 mcg/actuation inhalation HFA aerosol inhaler 08/16/2014 2/26/ 2015 INHALE 1 TO 2 PUFFS BY MOUTH [...] Reviewed 06/26/2015 12:00 AM IMMUNOTHERAPY INJECTIONS Reviewed 04/29/2011 12:00 [...] 08/21/2011 12:00 AM Depo-Medrol 40 mg [facility]#[id number] Reviewed 09/08/2011 12:00 AM IMMUNOTHERAPY INJECTIONS Reviewed [...] 11/27/2011 12:00 AM Depo-Medrol 40 mg [facility]#[id number] Reviewed 12/01/2011 12:00 AM IMMUNOTHERAPY INJECTIONS Reviewed [...] 12:00 AM Decadron, Per 1 Mg [facility]# [address]-48 Reviewed 02/13/2013 12:00 AM Depo-Medrol, Per 80 Mg [facility]#8861-6262-38 Reviewed 06/05/2013 12:00 AM MAMMOGRAM SCREENING Returned [...] BILI 0.50 mg/dLCALCIUM 10.10 mg/dLeGFR >60 mL/min/1.73 [id number] 10.0 secsINR 1.0 PTT 28.20 secs 08/28/2014 [...] CVX Influenza 06/02/2010 sanofi pasteur PMC Fluzone [id number] Intramuscular Left Deltoid 06/02/2010 02/25/2010 999 Influenza 05/09/2015 sanofi pasteur PMC Fluzone [id number] Intramuscular Left Deltoid 05/09/2015 02/22/2015 141 History [...] to other allergen Jun 26 2015 3:57PM Payers Insurance Name Company Name Plan Name Plan Number Policy Number Policy Group Number Start Date [facility] [id number] [place] Self Insurance [place] *[place] Self Insurance [id number] N /A History of Encounters Visit Date Visit Type Provider 06/26/2015 Nurse visit Yvonne Cassidy MD 06/17/2015 Nurse visit Yvonne Cassidy MD 06/10/2015 Nurse visit Yvonne Cassidy MD 06/04/2015 Nurse visit Yvonne Cassidy MD 05/29/2015 Office visit Karolyn Millan APRN 05/29/2015 Nurse visit Yvonne Cassidy MD 05/14/2015 Nurse visit Francisco J Jesus DO 05/09/2015 Nurse visit Yvonne Cassidy MD 04/30/2015 Nurse visit Yvonne Cassidy MD 04/23/2015 Nurse visit Yvonne Cassidy MD 04/18/2015 Nurse visit Nidia Darby YOUNG ADULT LIBRARIAN 04/09/2015 Nurse visit Yvonne Cassidy MD 04/01/2015 Nurse visit Yvonne Cassidy MD 03/27/[address] Cody Horvath MD 03/25/2015 [facility] Alexander Park MD 03/19/2015 Nurse visit Yvonne Cassidy MD 03/19/2015 Office visit Nidia Darby YOUNG ADULT LIBRARIAN 03/04/2015 Nurse visit Yvonne Cassidy MD 02/25/2015 Nurse visit Yvonne Cassidy MD 02/18/2015 Nurse visit Yvonne Cassidy MD 02/11/2015 Nurse visit Yvonne Cassidy MD 02/04/2015 Nurse visit Yovnne Cassidy MD 01/28/2015 Nurse visit Yvonne Cassidy MD 01/21/2015 Nurse visit Yvonne Cassidy MD 01/15/2015 Nurse visit Yvonne Cassidy MD 01/07/2015 Nurse visit Yvonne Cassidy MD 12/31/2014 Nurse visit Yvonne Cassidy MD 12/31/2014 Office visit Karolyn Millan YOUNG ADULT LIBRARIAN 12/24/2014 Nurse visit Yvonne Cassidy MD 12/17/2014 [...] Cassidy MD 10/11/2014 Office visit Karolyn Millan YOUNG ADULT LIBRARIAN 10/09/2014 Nurse visit Yvonne Cassidy MD 10/04/2014 Nurse visit Yvonne Cassidy MD 09/19/2014 Surgery Karolyn Millan YOUNG ADULT LIBRARIAN 09/13/2014 Office visit Yvonne Cassidy MD 09/06/2014 Nurse visit Yvonne Cassidy MD 08/28/2014 [facility] Chauncey Hogan MD 08/28/2014 [facility] Joe Thomas MD 08/23/2014 Nurse visit Yvonne Cassidy MD 08/22/2014 Surgery Joe Thomas MD 08/16/2014 Nurse visit Yvonne Cassidy MD 08/07/2014 Nurse visit Yvonne Cassidy MD 08/01/2014 Nurse visit Jessie Mock YOUNG ADULT LIBRARIAN 07/25/2014 Nurse visit Nidia Darby YOUNG ADULT LIBRARIAN 07/16/2014 Nurse visit Yvonne Cassidy MD 07/09/2014 [...] Yvonne Cassidy MD 2014 Nurse visit Yvonne Cassdiy MD 04/10/2014 Nurse visit Yvonne Cassidy MD 04/02/2014 Nurse visit Yvonne Cassidy MD 03/26/2014 Nurse visit Yvonne Cassidy MD 03/20/2014 Nurse visit Jessie Mock YOUNG ADULT LIBRARIAN 03/13/2014 Nurse visit Donte Hastings YOUNG ADULT LIBRARIAN 03/07/2014 Nurse visit Yvonne Cassidy MD 02/27/2014 Nurse visit Jessie Mock YOUNG ADULT LIBRARIAN 02/20/2014 Nurse visit Donte Hastings YOUNG ADULT LIBRARIAN 02/13/2014 Nurse visit Donte Hastings YOUNG ADULT LIBRARIAN 02/13/2014 Procedures Joe Thomas MD 02/07/2014 Office visit Joe Thomas MD 02/06/2014 Nurse visit Yvonne Cassidy MD 01/17/2014 Nurse visit Nidia Darby YOUNG ADULT LIBRARIAN 01/10/2014 Nurse visit Yvonne Cassidy MD 01/02/2014 Nurse visit Yvonne Cassidy MD 12/26/2013 Nurse visit Yvonne Cassidy MD 12/18/2013 Nurse visit Yvonne Cassidy MD 12/12/2013 Nurse visit Yvonne Cassidy MD 12/05/2013 Nurse visit Yvonne Cassidy MD 11/28/2013 Nurse visit Yvonne Cassidy MD 11/21/2013 Nurse visit Yvonne Cassidy MD 11/14/2013 Nurse visit Yvonne Cassidy MD 11/07/2013 Nurse visit Nidia Darby YOUNG ADULT LIBRARIAN 10/31/2013 Nurse visit Nidia Darby YOUNG ADULT LIBRARIAN 10/25/2013 Nurse visit Nidia Darby YOUNG ADULT LIBRARIAN 10/18/2013 Voided Nidia Darby YOUNG ADULT LIBRARIAN 10/10/2013 Voided Yvonne Cassidy MD 10/03/2013 Nurse [...] Mart MD 04/18/2013 Nurse visit Nidia Darby YOUNG ADULT LIBRARIAN 04/04/2013 Nurse visit Nidia Darby YOUNG ADULT LIBRARIAN 03/28/2013 Nurse visit Nidia Darby YOUNG ADULT LIBRARIAN 03/21/2013 Nurse visit Nidia Darby YOUNG ADULT LIBRARIAN 03/13/2013 Nurse visit Nidia Darby YOUNG ADULT LIBRARIAN 03/09/2013 Nurse visit Nidia Darby YOUNG ADULT LIBRARIAN 03/02/2013 Nurse visit Nidia Darby YOUNG ADULT LIBRARIAN 02/21/2013 Nurse visit Nidia Darby YOUNG ADULT LIBRARIAN 02/13/2013 Office visit Nidia Darby YOUNG ADULT LIBRARIAN 02/06/2013 Nurse visit Bria Mart MD 01/31/2013 [...] Mart MD 10/04/2012 Nurse visit Nidia Darby YOUNG ADULT LIBRARIAN 09/27/2012 Nurse visit Bria Mart MD 09/22/2012 [...] Mart MD 06/07/2012 Nurse visit Nidia Darby YOUNG ADULT LIBRARIAN 06/07/2012 Voided Francisco J Jesus DO 06/01/2012 [...] visit Bria Mart MD 12/18/2011 Nurse visit Bira Mart MD 12/08/2011 Nurse visit Bria Mart [...] Mart MD 09/08/2011 Office visit Jessie Mock YOUNG ADULT LIBRARIAN 09/01/2011 Nurse visit Bria Mart MD 08/21/2011 [...]
--- OUTSIDE RECORDS SUMMARY | 2017-05-06 18:45 | XMS REPORT ---
Author Author Nidia Darby [facility] Address [address] [place], [place] [id number] Care Team Providers Care Board Certified Orthodontist Name Role Phone Nidia Darby PCP Unavailable Allergies and Adverse Reactions Name Reaction Notes Ceftin rash Erythromycin rash PENICILLINS rash Plan of Treatment Planned Activity Comments Planned Date Planned Time Plan/Goal IMMUNOTHERAPY INJECTIONS 04/18/2015 12:00 AM IMMUNOTHERAPY INJECTIONS 01/05/2012 12:00 AM [...] Status 04/09/2015 12:00 AM IMMUNOTHERAPY INJECTIONS Reviewed 03/25/2011 12:00 [...] Reviewed 08/21/2011 12:00 AM Depo-Medrol 40 mg ND#[id number] Reviewed 09/08/2011 12:00 AM IMMUNOTHERAPY INJECTIONS Reviewed [...] Reviewed 11/27/2011 12:00 AM Depo-Medrol 40 mg NDC#[id number] Reviewed 12/01/2011 12:00 AM IMMUNOTHERAPY INJECTIONS Reviewed [...] Decadron, Per 1 Mg [facility]# [address]-36 Reviewed 02/13/2013 12:00 AM Depo-Medrol, Per 80 Mg [facility]#7395-3059-35 Reviewed 06/05/2013 12:00 AM MAMMOGRAM SCREENING Returned [...] BILI 0.50 mg/dLCALCIUM 10.10 mg/dLeGFR >60 mL/min/1.73 [id number] 10.0 secsINR 1.0 PTT 28.20 secs 08/28/2014 [...] Vis Given Vis Pub CVX Influenza 06/02/2010 sanemmanuel henderson PMC Fluzone [id number] Intramuscular Left Deltoid 06/02/2010 02/25/2010 999 History [...] to other allergen Apr 18 2015 2:40PM Payers Insurance Name Company Name Plan Name Plan Number Policy Number Policy Group Number Start Date [facility] [id number] [place] State Self Insurance [id number] N /A History of Encounters Visit Date Visit Type Provider 04/18/2015 Nurse visit Nidia Darby RN BARIATRIC 04/09/2015 Nurse visit Yvonne Cassidy MD 04/01/2015 Nurse visit Yvonne Cassidy MD 03/27/[address] Cody Horvath MD 03/19/2015 Nurse visit Yvonne Cassidy MD 03/19/2015 Office visit Nidia Darby RN BARIATRIC 03/04/2015 Nurse visit Yvonne Cassidy MD 02/25/2015 [...] Cassidy MD 12/31/2014 Office visit Karolyn Millan RN BARIATRIC 12/24/2014 Nurse visit Yvonne Cassidy MD 12/17/2014 [...] Cassidy MD 10/11/2014 Office visit Karolyn Millan RN BARIATRIC 10/09/2014 Nurse visit Yvonne Cassidy MD 10/04/2014 Nurse visit Yvonne Cassidy MD 09/19/2014 Surgery Karolyn Millan RN BARIATRIC 09/13/2014 Office visit Yvonne Cassidy MD 09/06/2014 Nurse visit Yvonne Cassidy MD 08/28/2014 [facility] Chauncey Hogan MD 08/28/2014 [facility] Joe Thomas MD 08/23/2014 Nurse visit Yvonne Cassidy MD 08/22/2014 Surgery Joe Thomas MD 08/16/2014 Nurse visit Yvonne Cassidy MD 08/07/2014 Nurse visit Yvonne Cassidy MD 08/01/2014 Nurse visit Jessie Mock RN BARIATRIC 07/25/2014 Nurse visit Nidia Darby RN BARIATRIC 07/16/2014 Nurse visit Yvonne Cassidy MD 07/09/2014 [...] Cassidy MD 03/20/2014 Nurse visit Jessie Mock RN BARIATRIC 03/13/2014 Nurse visit Donte Hastings RN BARIATRIC 03/07/2014 Nurse visit Yvonne Cassidy MD 02/27/2014 Nurse visit Jessie Mock RN BARIATRIC 02/20/2014 Nurse visit Donte Hastings RN BARIATRIC 02/13/2014 Nurse visit Donte Hastings RN BARIATRIC 02/13/2014 Procedures Joe Thomas MD 02/07/2014 Office visit Joe Thomas MD 02/06/2014 Nurse visit Yvonne Cassidy MD 01/17/2014 Nurse visit Nidia Darby RN BARIATRIC 01/10/2014 Nurse visit Yvonne Cassidy MD 01/02/2014 Nurse visit Yvonne Cassidy MD 12/26/2013 Nurse visit Yvonne Cassidy MD 12/18/2013 Nurse visit Yvonne Cassidy MD 12/12/2013 Nurse visit Yvonne Cassidy MD 12/05/2013 Nurse visit Yvonne Cassidy MD 11/28/2013 Nurse visit Yvonne Cassidy MD 11/21/2013 Nurse visit Yvonne Cassidy MD 11/14/2013 Nurse visit Yvonne Cassidy MD 11/07/2013 Nurse visit Nidia Darby RN BARIATRIC 10/31/2013 Nurse visit Nidia Darby RN BARIATRIC 10/25/2013 Nurse visit Nidia Darby RN BARIATRIC 10/18/2013 Voided Nidia Darby RN BARIATRIC 10/10/2013 Voided Yvonne Cassidy MD 10/03/2013 Nurse [...] Mart MD 04/18/2013 Nurse visit Nidia Darby RN BARIATRIC 04/04/2013 Nurse visit Nidia Darby RN BARIATRIC 03/28/2013 Nurse visit Nidia Darby RN BARIATRIC 03/21/2013 Nurse visit Nidia Darby RN BARIATRIC 03/13/2013 Nurse visit Nidia Darby RN BARIATRIC 03/09/2013 Nurse visit Nidia Darby RN BARIATRIC 03/02/2013 Nurse visit Nidia Darby RN BARIATRIC 02/21/2013 Nurse visit Nidia Darby RN BARIATRIC 02/13/2013 Office visit Nidia Darby RN BARIATRIC 02/06/2013 Nurse visit Bria Mart MD 01/31/2013 [...] Mart MD 10/04/2012 Nurse visit Nidia Darby RN BARIATRIC 09/27/2012 Nurse visit Bria Mart MD 09/22/2012 [...] Mart MD 06/07/2012 Nurse visit Nidia Darby RN BARIATRIC 06/07/2012 Voided Francisco J Jesus DO 06/01/2012 [...] Mart MD 09/08/2011 Office visit Jessie Mock RN BARIATRIC 09/01/2011 Nurse visit Bira Mart MD 08/21/2011 Office visit Bria Mart [...]
--- OUTSIDE RECORDS SUMMARY | 2017-05-06 18:50 | XMS REPORT ---
Author Author Francisco J Jesus [facility] Address [address] [place], [place] [id number] Care Team Providers Care Art Glass Setter Name Role Phone Francisco J Jesus PCP [...] 08/21/2011 12:00 AM Depo-Medrol 40 mg [facility]#[id number] Reviewed 03/02/2016 12:00 AM IMMUNOTHERAPY INJECTIONS Reviewed [...] 11/27/2011 12:00 AM Depo-Medrol 40 mg [facility]#[id number] Reviewed 12/01/2011 12:00 AM IMMUNOTHERAPY INJECTIONS Reviewed [...] 12:00 AM Decadron, Per 1 Mg [facility]# [address]-90 Reviewed 02/13/2013 12:00 AM Depo-Medrol, Per 80 Mg [facility]#6264-8409-40 Reviewed 06/05/2013 12:00 AM MAMMOGRAM SCREENING Reviewed [...] CVX Influenza 06/02/2010 sanofi pasteur PMC Fluzone [id number] Intramuscular Left Deltoid 06/02/2010 02/25/2010 999 Influenza 05/09/2015 sanofi pasteur PMC Fluzone [id number] Intramuscular Left Deltoid 05/09/2015 02/22/2015 141 Pneumococcal 06/29/2016 Yllmz-Qgzdrb-ZoyhsrnDiana W[facility] Prevnar 13 [id number] Intramuscular Right Deltoid 06/29/2016 09/14/2012 133 History [...] to other allergen Sep 15 2016 4:19PM Payers Insurance Name Company Name Plan Name Plan Number Policy Number Policy Group Number Start Date [facility] [id number] June [facility] Self Insurance Fund *INVALID State Self Insurance [id number] N/A Comp [place] [id number] Wednesday, 2015 History of Encounters Visit Date Visit Type Provider 09/15/2016 Nurse visit Francisco J Jesus DO 09/08/2016 Nurse visit Francisco J Jesus DO 09/02/2016 Nurse visit Yvonne Cassidy MD 08/25/2016 Nurse visit Yvonne Cassidy MD 08/19/2016 Nurse visit Yvonne Cassidy MD 08/13/2016 Nurse visit Yvonne Cassidy MD 08/04/2016 Nurse visit Yvonne Cassidy MD 07/29/2016 Nurse visit Yvonne Cassidy MD 07/14/2016 Nurse visit Donte Hastings ENVIRONMENTAL LAW PROFESSOR 07/06/2016 Nurse visit Yvonne Cassidy MD 06/29/2016 Nurse visit Yvonne Cassidy MD 06/24/2016 Nurse visit Yvonne Cassidy MD 06/16/2016 Office visit Yvonne Cassidy MD 06/14/2016 [facility] MD 06/09/2016 Nurse visit Yvonne Cassidy MD 06/02/2016 Office visit 06/02/2016 Office visit Karolyn Millan ENVIRONMENTAL LAW PROFESSOR 06/01/2016 Nurse visit Yvonne Cassidy MD 05/27/2016 Nurse visit Yvonne Cassidy MD 05/11/2016 Nurse visit Yvonne Cassidy MD 05/05/2016 Nurse visit Yvonne Cassidy MD 04/29/2016 Nurse visit Yvonne Cassidy MD 04/23/2016 Office visit Jessie Mock ENVIRONMENTAL LAW PROFESSOR 04/13/2016 Nurse visit Yvonne Cassidy MD 04/07/2016 Nurse visit Yvonne Cassidy MD 04/01/2016 Office visit Jessie Mock ENVIRONMENTAL LAW PROFESSOR 03/26/2016 Nurse visit Yvonne Cassidy MD 03/17/2016 Nurse visit Yvonne Cassidy MD 03/11/2016 Nurse visit Yvonne Cassidy MD 03/04/2016 Office visit Jessie Mock ENVIRONMENTAL LAW PROFESSOR 03/02/2016 Nurse visit Yvonne Cassidy MD 02/19/2016 Nurse visit Yvonne Cassidy MD 02/12/2016 Office visit Jessie Mock ENVIRONMENTAL LAW PROFESSOR 02/03/2016 Nurse visit Yvonne Cassidy MD 01/27/2016 Nurse visit Yvonne Cassidy MD 01/15/2016 Nurse visit Yvonne Cassidy MD 01/08/2016 Office visit Jessie Mock ENVIRONMENTAL LAW PROFESSOR 12/25/2015 Nurse visit Yvonne Cassidy MD 12/09/2015 Nurse visit Yvonne Cassidy MD 12/02/2015 Nurse visit Yvonne Cassidy MD 11/29/2015 Nurse visit Donte Hastings ENVIRONMENTAL LAW PROFESSOR 11/28/2015 Nurse visit Jessie Nish ENVIRONMENTAL LAW PROFESSOR 11/27/2015 Office visit Jessie Mock ENVIRONMENTAL LAW PROFESSOR 11/25/2015 Office visit Donte Darling ENVIRONMENTAL LAW PROFESSOR 11/18/2015 Nurse visit Donte Hastings ENVIRONMENTAL LAW PROFESSOR 11/11/2015 Nurse visit Jessie Mock ENVIRONMENTAL LAW PROFESSOR 11/04/2015 Nurse visit Donte Hastings ENVIRONMENTAL LAW PROFESSOR 10/29/2015 Office visit Jessie Mock ENVIRONMENTAL LAW PROFESSOR 10/28/2015 Nurse visit Jessie Nish ENVIRONMENTAL LAW PROFESSOR 10/21/2015 Nurse visit Glenn Tejeda MD 10/15/2015 Nurse visit Francisco J Jesus DO 10/09/2015 Nurse visit Glenn Tejeda MD 10/02/2015 Office visit April Atkinson ENVIRONMENTAL LAW PROFESSOR 10/01/2015 Nurse visit Jessie Mock ENVIRONMENTAL LAW PROFESSOR 09/11/2015 Nurse visit Yvonne Cassidy MD 09/05/2015 [...] Yvonne Cassidy MD 06/04/2015 Nurse visit Yvonne Casisdy MD 05/29/2015 Office visit 05/29/2015 Office visit Karolyn Millan ENVIRONMENTAL LAW PROFESSOR 05/29/2015 Nurse visit Yvonne Cassidy MD 05/14/2015 Nurse visit Francisco J Jesus DO 05/09/2015 Nurse visit Yvonne Cassidy MD 04/30/2015 Nurse visit Yvonne Cassidy MD 04/23/2015 Nurse visit Yvonne Cassidy MD 04/18/2015 Nurse visit Nidia Darby ENVIRONMENTAL LAW PROFESSOR 04/09/2015 Nurse visit Yvonne Cassidy MD 04/01/2015 Nurse visit Yvonne Cassidy MD 03/27/[address] Cody Horvath MD 03/25/2015 [facility] Darin Park MD 03/19/2015 Nurse visit Yvonne Cassidy MD 03/19/2015 Office visit Nidia Darby ENVIRONMENTAL LAW PROFESSOR 03/04/2015 Nurse visit Yvonne Cassidy MD 02/25/2015 [...] Office visit 12/31/2014 Office visit Karolyn Millan ENVIRONMENTAL LAW PROFESSOR 12/24/2014 Nurse visit Yvonne Cassidy MD 12/17/2014 [...] Cassidy MD 10/11/2014 Office visit Karolyn Millan ENVIRONMENTAL LAW PROFESSOR 10/09/2014 Nurse visit Yvonne Cassidy MD 10/04/2014 Nurse visit Yvonne Cassidy MD 09/19/2014 Surgery Karolyn Millan ENVIRONMENTAL LAW PROFESSOR 09/13/2014 Office visit Yvonne Cassidy MD 09/06/2014 Nurse visit Yvonne Cassidy MD 08/28/2014 [facility] Chauncey Hogan MD 08/28/2014 [facility] Joe Thomas MD 08/23/2014 Nurse visit Yvonne Cassidy MD 08/22/2014 Surgery Joe Thomas MD 08/16/2014 Nurse visit Yvonne Cassidy MD 08/07/2014 Nurse visit Yvonne Cassidy MD 08/01/2014 Nurse visit Jessie Mock ENVIRONMENTAL LAW PROFESSOR 07/25/2014 Nurse visit Nidia Darby ENVIRONMENTAL LAW PROFESSOR 07/16/2014 Nurse visit Yvonne Cassidy MD [...] Cassidy MD 03/20/2014 Nurse visit Jessie Mock ENVIRONMENTAL LAW PROFESSOR 03/13/2014 Nurse visit Donte Hastings ENVIRONMENTAL LAW PROFESSOR 03/07/2014 Nurse visit Yvonne Cassidy MD 02/27/2014 Nurse visit Jessie Mock ENVIRONMENTAL LAW PROFESSOR 02/20/2014 Nurse visit Donte Hastings ENVIRONMENTAL LAW PROFESSOR 02/13/2014 Nurse visit Donte Hastings ENVIRONMENTAL LAW PROFESSOR 02/13/2014 Procedures Joe Thomas MD 02/07/2014 Office visit Joe Thomas MD 02/06/2014 Nurse visit Yvonne Cassidy MD 01/17/2014 Nurse visit Nidia Darby ENVIRONMENTAL LAW PROFESSOR 01/10/2014 Nurse visit Yvonne Cassidy MD 01/02/2014 Nurse visit Yvonne Cassidy MD 12/26/2013 Nurse visit Yvonne Cassidy MD 12/18/2013 Nurse visit Yvonne Cassidy MD 12/12/2013 Nurse visit Yvonne Cassidy MD 12/05/2013 Nurse visit Yvonne Cassidy MD 11/28/2013 Nurse visit Yvonne Cassidy MD 11/21/2013 Nurse visit Yvonne Cassidy MD 11/14/2013 Nurse visit Yvonne Cassidy MD 11/07/2013 Nurse visit Nidia Darby ENVIRONMENTAL LAW PROFESSOR 10/31/2013 Nurse visit Nidia Darby ENVIRONMENTAL LAW PROFESSOR 10/25/2013 Nurse visit Nidia Darby ENVIRONMENTAL LAW PROFESSOR 10/18/2013 Voided Nidia Darby ENVIRONMENTAL LAW PROFESSOR 10/10/2013 Voided Yvonne Cassidy MD 10/03/2013 [...] Mart MD 04/18/2013 Nurse visit Nidia Darby ENVIRONMENTAL LAW PROFESSOR 04/04/2013 Nurse visit Nidia Darby ENVIRONMENTAL LAW PROFESSOR 03/28/2013 Nurse visit Nidia Darby ENVIRONMENTAL LAW PROFESSOR 03/21/2013 Nurse visit Nidia Darby ENVIRONMENTAL LAW PROFESSOR 03/13/2013 Nurse visit Nidia Darby ENVIRONMENTAL LAW PROFESSOR 03/09/2013 Nurse visit Nidia Darby ENVIRONMENTAL LAW PROFESSOR 03/02/2013 Nurse visit Nidia Darby ENVIRONMENTAL LAW PROFESSOR 02/21/2013 Nurse visit Nidia Darby ENVIRONMENTAL LAW PROFESSOR 02/13/2013 Office visit Nidia Darby ENVIRONMENTAL LAW PROFESSOR 02/06/2013 Nurse visit Bria Mart MD [...] Mart MD 10/04/2012 Nurse visit Nidia Darby ENVIRONMENTAL LAW PROFESSOR 09/27/2012 Nurse visit Bria Mart MD [...] Mart MD 06/07/2012 Nurse visit Nidia Darby ENVIRONMENTAL LAW PROFESSOR 06/07/2012 Voided Francisco J Jesus DO 06/01/2012 [...] Bria Mart MD 09/17/2011 Nurse visit Bria Matr MD 09/08/2011 Nurse visit Bria Mart MD 09/08/2011 Office visit Jessie Mock ENVIRONMENTAL LAW PROFESSOR 09/01/2011 Nurse visit Bria Mart MD 08/21/2011 [...]
--- OUTSIDE RECORDS SUMMARY | 2017-05-06 18:54 | XMS REPORT ---
Author Author Yvonne Cassidy Organization [facility] Address [address] [place], [place] [id number] Care Team Providers Care Catholic Priest Name Role Phone Yvonne Cassidy PCP Yvonne [...] AM Depo-Medrol 40 mg [facility]#[id number] Reviewed 03/02/2016 12:00 AM IMMUNOTHERAPY INJECTIONS Reviewed [...] Reviewed 08/04/2016 12:00 AM IMMUNOTHERAPY INJECTIONS Reviewed 11/27/2011 12:00 AM THER/PROPH/DIAG INJ SC/IM Reviewed 11/27/2011 12:00 AM Depo-Medrol 40 mg [facility]#[id number] Reviewed 12/01/2011 12:00 AM IMMUNOTHERAPY INJECTIONS Reviewed [...] Per 1 Mg [facility]# [address]-30 Reviewed 02/13/2013 12:00 AM Depo-Medrol, Per 80 Mg [facility]#9253-0867-98 Reviewed 06/05/2013 12:00 AM MAMMOGRAM SCREENING Reviewed [...] CVX Influenza 06/02/2010 sanofi pasteur PMC Fluzone [id number] Intramuscular Left Deltoid 06/02/2010 02/25/2010 999 Influenza 05/09/2015 sanofi pasteur PMC Fluzone [id number] Intramuscular Left Deltoid 05/09/2015 02/22/2015 141 Pneumococcal 06/29/2016 Diuic-Mwtnlk-AiiyhwfPratyesha WAL Prevnar 13 [id number] Intramuscular Right Deltoid 06/29/2016 09/14/2012 133 History [...] female 05/18/2013 Urge incontinence 05/18/2013 Essential Hypertension Nov 2010 3:31PM Hypothyroidism, Acquired May 26 2010 [...] 1:07PM Hypomagnesemia Sep 08 2013 1:07PM Hypertension Mar 3 2014 9:55AM Hypothyroidism Sep 18 2013 9:55AM Stress [...] to other allergen Aug 04 2016 3:22PM Payers Insurance Name Company Name Plan Name Plan Number Policy Number Policy Group Number Start Date [facility] [id number] June [facility] Self Insurance Fund *INVALID State Self Insurance [id number] N/A Comp [employer] [id number] Wednesday, 2015 History of Encounters Visit Date Visit Type Provider 08/04/2016 Nurse visit Yvonne Cassidy MD 07/29/2016 Nurse visit Yvonne Cassidy MD 07/14/2016 Nurse visit Donte Hastings APRN 07/06/2016 Nurse visit Yvonne Cassidy MD 06/29/2016 Nurse visit Yvonne Cassidy MD 06/24/2016 Nurse visit vYonne Cassidy MD 06/16/2016 Office visit Yvonne Cassidy MD 06/09/2016 Nurse visit Yvonne Cassidy MD 06/02/2016 Office visit 06/02/2016 Office visit Karolyn Millan BRUSHER WARP 06/01/2016 Nurse visit Yvonne Cassidy MD 05/27/2016 Nurse visit Yvonne Cassidy MD 05/11/2016 Nurse visit Yvonne Cassidy MD 05/05/2016 Nurse visit Yvonne Cassidy MD 04/29/2016 Nurse visit Yvonne Cassidy MD 04/23/2016 Office visit Jessie Mock BRUSHER WARP 04/13/2016 Nurse visit Yvonne Cassidy MD 04/07/2016 Nurse visit Yvonne Cassidy MD 04/01/2016 Office visit Jessie Mock BRUSHER WARP 03/26/2016 Nurse visit Yvonne Cassidy MD 03/17/2016 Nurse visit Yvonne Cassidy MD 03/11/2016 Nurse visit Yvonne Cassidy MD 03/04/2016 Office visit Jessie Mock BRUSHER WARP 03/02/2016 Nurse visit Yvonne Cassidy MD 02/19/2016 Nurse visit Yvonne Cassidy MD 02/12/2016 Office visit Jessie Mock BRUSHER WARP 02/03/2016 Nurse visit Yvonne Cassidy MD 01/27/2016 Nurse visit Yvonne Cassidy MD 01/15/2016 Nurse visit Yvonne Cassidy MD 01/08/2016 Office visit Jessie Mock BRUSHER WARP 12/25/2015 Nurse visit Yvonne Cassidy MD 12/09/2015 Nurse visit Yvonne Cassidy MD 12/02/2015 Nurse visit Yvonne Cassidy MD 11/29/2015 Nurse visit Donte Hastings BRUSHER WARP 11/28/2015 Nurse visit Jessie Mock BRUSHER WARP 11/27/2015 Office visit Jessie Mock BRUSHER WARP 11/25/2015 Office visit Donte Hastings BRUSHER WARP 11/18/2015 Nurse visit Donte Hastings BRUSHER WARP 11/11/2015 Nurse visit Jessie Mock BRUSHER WARP 11/04/2015 Nurse visit Donte Hastings BRUSHER WARP 10/29/2015 Office visit Jessie Mock BRUSHER WARP 10/28/2015 Nurse visit Jessie Mock BRUSHER WARP 10/21/2015 Nurse visit Glenn Tejeda MD 10/15/2015 Nurse visit Francisco J Jesus DO 10/09/2015 Nurse visit Glenn Tejeda MD 10/02/2015 Office visit April Atkinson BRUSHER WARP 10/01/2015 Nurse visit Jessie Mock BRUSHER WARP 09/11/2015 Nurse visit Yvonne Cassidy MD 09/05/2015 [...] Office visit 05/29/2015 Office visit Karolyn Millan BRUSHER WARP 05/29/2015 Nurse visit Yvonne Cassidy MD 05/14/2015 Nurse visit Francisco J Jesus DO 05/09/2015 Nurse visit Yvonne Cassidy MD 04/30/2015 Nurse visit Yvonne Cassidy MD 04/23/2015 Nurse visit Yvonne Cassidy MD 04/18/2015 Nurse visit Nidia Darby BRUSHER WARP 04/09/2015 Nurse visit Yvonne Cassidy MD 04/01/2015 Nurse visit Yvonne Cassidy MD 03/27/[address] Cody Horvath MD 03/25/2015 [facility] MD 03/19/2015 Nurse visit Yvonne Cassidy MD 03/19/2015 Office visit Nidia Darby BRUSHER WARP 03/04/2015 Nurse visit Yvonne Cassidy MD 02/25/2015 [...] Office visit 12/31/2014 Office visit Karolyn Millan BRUSHER WARP 12/24/2014 Nurse visit Yvonne Cassidy MD 12/17/2014 Nurse visit Yvonne Cassidy MD 12/13/2014 Nurse visit Yvonne Cassidy MD 11/28/2014 Nurse visit Yvonne Cassidy MD 11/19/2014 Nurse visit Yvonne Cassidy MD 11/12/2014 Nurse visit Yvonne Cassidy MD 11/05/2014 Nurse visit Yvonne Cassidy MD 11/05/2014 [facility] Darin Park MD 10/29/2014 Nurse visit Yvonne Cassidy MD 10/24/2014 Nurse visit Yvonne Cassidy MD 10/15/2014 Nurse visit Yvonne Cassidy MD 10/11/2014 Office visit Karolyn Millan BRUSHER WARP 10/09/2014 Nurse visit Yvonne Cassidy MD 10/04/2014 Nurse visit Yvonne Cassidy MD 09/19/2014 Surgery Karolyn Millan BRUSHER WARP 09/13/2014 Office visit Yvonne Cassidy MD 09/06/2014 Nurse visit Yvonne Cassidy MD 08/28/2014 Hospital Chauncey Hogan MD 08/28/2014 [facility] Joe Thomas MD 08/23/2014 Nurse visit Yvonne Cassidy MD 08/22/2014 Surgery Joe Thomas MD 08/16/2014 Nurse visit Yvonne Cassidy MD 08/07/2014 Nurse visit Yvonne Cassidy MD 08/01/2014 Nurse visit Jessie Mock BRUSHER WARP 07/25/2014 Nurse visit Nidia Darby BRUSHER WARP 07/16/2014 Nurse visit Yvonne Cassidy MD 07/09/2014 [...] Cassidy MD 03/20/2014 Nurse visit Jessie Mock BRUSHER WARP 03/13/2014 Nurse visit Donte Hastings BRUSHER WARP 03/07/2014 Nurse visit Yvonne Cassidy MD 02/27/2014 Nurse visit Jessie Mock BRUSHER WARP 02/20/2014 Nurse visit Donte Hastings BRUSHER WARP 02/13/2014 Nurse visit Donte Hastings BRUSHER WARP 02/13/2014 Procedures Joe Thomas MD 02/07/2014 Office visit Joe Thomas MD 02/06/2014 Nurse visit Yvonne Cassidy MD 01/17/2014 Nurse visit Nidia Darby BRUSHER WARP 01/10/2014 Nurse visit Yvonne Cassidy MD 01/02/2014 Nurse visit Yvonne Cassidy MD 12/26/2013 Nurse visit Yvonne Cassidy MD 12/18/2013 Nurse visit Yvonne Cassidy MD 12/12/2013 Nurse visit Yvonne Cassidy MD 12/05/2013 Nurse visit Yvonne Cassidy MD 11/28/2013 Nurse visit Yvonne Cassidy MD 11/21/2013 Nurse visit Yvonne Cassidy MD 11/14/2013 Nurse visit Yvonne Cassidy MD 11/07/2013 Nurse visit Nidia Darby BRUSHER WARP 10/31/2013 Nurse visit Nidia Darby BRUSHER WARP 10/25/2013 Nurse visit Nidia Darby BRUSHER WARP 10/18/2013 Voided Nidia Darby BRUSHER WARP 10/10/2013 Voided Yvonne Cassidy MD 10/03/2013 Nurse visit Yvonne Cassidy MD 09/18/2013 Office visit Yvonne Cassidy MD 09/15/2013 Nurse visit Yvnone Cassidy MD 09/08/2013 Office visit Joe Thomas [...] Mart MD 04/18/2013 Nurse visit Nidia Darby BRUSHER WARP 04/04/2013 Nurse visit Nidia Darby BRUSHER WARP 03/28/2013 Nurse visit Nidia Darby BRUSHER WARP 03/21/2013 Nurse visit Nidia Darby BRUSHER WARP 03/13/2013 Nurse visit Nidia Darby BRUSHER WARP 03/09/2013 Nurse visit Nidia Darby BRUSHER WARP 03/02/2013 Nurse visit Nidia Darby BRUSHER WARP 02/21/2013 Nurse visit Nidia Darby BRUSHER WARP 02/13/2013 Office visit Nidia Darby BRUSHER WARP 02/06/2013 Nurse visit Bria Mart MD 01/31/2013 [...] Mart MD 10/04/2012 Nurse visit Nidia Darby BRUSHER WARP 09/27/2012 Nurse visit Bria Mart MD 09/22/2012 [...] Mart MD 06/07/2012 Nurse visit Nidia Darby BRUSHER WARP 06/07/2012 Voided Francisco J Jesus DO 06/01/2012 [...] Mart MD 09/08/2011 Office visit Jessie Mock BRUSHER WARP 09/01/2011 Nurse visit Bria Mart MD 08/21/2011 [...]
--- OUTSIDE RECORDS SUMMARY | 2017-05-06 18:59 | XMS REPORT ---
Author Author Yvonne Cassidy Organization [facility] Address [address] [place], [place] [id number] Care Team Providers Care Automobile Bumper Straightener Name Role Phone Yvonne Cassidy PCP Yvonne [...] Depo-Medrol 40 mg [facility]#[id number] Reviewed 03/02/2016 12:00 AM IMMUNOTHERAPY INJECTIONS Reviewed [...] Depo-Medrol 40 mg [facility]#[id number] Reviewed 12/01/2011 12:00 AM IMMUNOTHERAPY INJECTIONS Reviewed [...] Reviewed 12/22/2016 12:00 AM IMMUNOTHERAPY INJECTIONS Reviewed 02/25/2012 12:00 [...] 1 Mg [facility]# [id number] Reviewed 02/13/2013 12:00 AM Depo-Medrol, Per 80 Mg [facility]#[id number] Reviewed 06/05/2013 12:00 AM MAMMOGRAM SCREENING Reviewed [...] CVX Influenza 06/02/2010 sanofi pasteur PMC Fluzone [id number] Intramuscular Left Deltoid 06/02/2010 02/25/2010 999 Influenza 05/09/2015 sanofi pasteur PMC Fluzone [id number] Intramuscular Left Deltoid 05/09/2015 02/22/2015 141 Pneumococcal 06/29/2016 Tupgq-Cdpyfj-Ctrtiaz-Praxis [facility] Prevnar 13 [id number] Intramuscular Right Deltoid 06/29/2016 09/14/2012 133 Zostavax [...] to other allergen Dec 22 2016 3:55PM Payers Insurance Name Company Name Plan Name Plan Number Policy Number Policy Group Number Start Date [facility] [id number] June [facility] Self Insurance Fund *INVALID State Self Insurance [id number] N/A Comp [place] [employer] [place] [id number] Wednesday, 2015 History of Encounters Visit Date Visit Type Provider 12/22/2016 Nurse visit Yvonne Cassidy MD 12/08/2016 Nurse visit Donte Hastings REGIONAL ADMINISTRATIVE ASSISTANT 12/02/2016 Nurse visit Yvonne Cassidy MD 11/16/2016 Nurse visit Yvonne Cassidy MD 11/10/2016 Nurse visit Yvonne Cassidy MD 11/02/2016 Nurse visit Donte Hastings REGIONAL ADMINISTRATIVE ASSISTANT 10/28/2016 Nurse visit Yvonne Cassidy MD 10/06/2016 [...] Cassidy MD 07/14/2016 Nurse visit Donte Hastings REGIONAL ADMINISTRATIVE ASSISTANT 07/06/2016 Nurse visit Yvonne Cassidy MD 06/29/2016 Nurse visit Yvonne Cassidy MD 06/24/2016 Nurse visit Yvonne Cassidy MD 06/16/2016 Office visit Yvonne Cassidy MD 06/14/2016 [facility] Alexander Park MD 06/09/2016 Nurse visit Yvonne Cassidy MD 06/02/2016 Office visit 06/02/2016 Office visit Karolyn Millan REGIONAL ADMINISTRATIVE ASSISTANT 06/01/2016 Nurse visit Yvonne Cassidy MD 05/27/2016 Nurse visit Yvonne Cassidy MD 05/11/2016 Nurse visit Yvonne Cassidy MD 05/05/2016 Nurse visit Yvonne Cassidy MD 04/29/2016 Nurse visit Yvonne Cassidy MD 04/23/2016 Office visit Jessie Mock REGIONAL ADMINISTRATIVE ASSISTANT 04/13/2016 Nurse visit Yvonne Cassidy MD 04/07/2016 Nurse visit Yvonne Cassidy MD 04/01/2016 Office visit Jessie Mock REGIONAL ADMINISTRATIVE ASSISTANT 03/26/2016 Nurse visit Yvonne Cassidy MD 03/17/2016 Nurse visit Yvonne Cassidy MD 03/11/2016 Nurse visit Yvonne Cassidy MD 03/04/2016 Office visit Jessie Mock REGIONAL ADMINISTRATIVE ASSISTANT 03/02/2016 Nurse visit Yvonne Cassidy MD 02/19/2016 Nurse visit Yvonne Cassidy MD 02/12/2016 Office visit Jessie Mock REGIONAL ADMINISTRATIVE ASSISTANT 02/03/2016 Nurse visit Yvonne Cassidy MD 01/27/2016 Nurse visit Yvonne Cassidy MD 01/15/2016 Nurse visit Yvonne Cassidy MD 01/08/2016 Office visit Jessie Mock REGIONAL ADMINISTRATIVE ASSISTANT 12/25/2015 Nurse visit Yvonne Cassidy MD 12/09/2015 Nurse visit Yvonne Cassidy MD 12/02/2015 Nurse visit Yvonne Cassidy MD 11/29/2015 Nurse visit Donte Hastings REGIONAL ADMINISTRATIVE ASSISTANT 11/28/2015 Nurse visit Jessie Nish REGIONAL ADMINISTRATIVE ASSISTANT 11/27/2015 Office visit Jessie Walker REGIONAL ADMINISTRATIVE ASSISTANT 11/25/2015 Office visit Donte Hastings REGIONAL ADMINISTRATIVE ASSISTANT 11/18/2015 Nurse visit Donte Gerberran REGIONAL ADMINISTRATIVE ASSISTANT 11/11/2015 Nurse visit Jessie Walker REGIONAL ADMINISTRATIVE ASSISTANT 11/04/2015 Nurse visit Donte Hastings REGIONAL ADMINISTRATIVE ASSISTANT 10/29/2015 Office visit Jessie Walker REGIONAL ADMINISTRATIVE ASSISTANT 10/28/2015 Nurse visit Jessie Nish REGIONAL ADMINISTRATIVE ASSISTANT 10/21/2015 Nurse visit Glenn Tejeda MD 10/15/2015 Nurse visit Francisco J Jesus DO 10/09/2015 Nurse visit Glenn Tejeda MD 10/02/2015 Office visit April Atkinson REGIONAL ADMINISTRATIVE ASSISTANT 10/01/2015 Nurse visit Jessie Mock REGIONAL ADMINISTRATIVE ASSISTANT 09/11/2015 Nurse visit Yvonne Cassidy MD 09/05/2015 [...] Office visit 05/29/2015 Office visit Karolyn Millan REGIONAL ADMINISTRATIVE ASSISTANT 05/29/2015 Nurse visit Yvonne Cassidy MD 05/14/2015 Nurse visit Francisco J Jesus DO 05/09/2015 Nurse visit Yvonne Cassidy MD 04/30/2015 Nurse visit Yvonne Cassidy MD 04/23/2015 Nurse visit Yvonne Cassidy MD 04/18/2015 Nurse visit Ndiia Darby REGIONAL ADMINISTRATIVE ASSISTANT 04/09/2015 Nurse visit Yvonne Cassidy MD 04/01/2015 Nurse visit Yvonne Cassidy MD 03/27/[address] Cody Horvath MD 03/25/2015 [facility] Darin Park MD 03/19/2015 Nurse visit Yvonne Cassidy MD 03/19/2015 Office visit Nidia Darby REGIONAL ADMINISTRATIVE ASSISTANT 03/04/2015 Nurse visit Yvonne Cassidy MD 02/25/2015 [...] Office visit 12/31/2014 Office visit Karolyn Millan REGIONAL ADMINISTRATIVE ASSISTANT 12/24/2014 Nurse visit Yvonne Cassidy MD 12/17/2014 Nurse visit Yvonne Cassidy MD 12/13/2014 Nurse visit Yvonne Cassidy MD 11/28/2014 Nurse visit Yvonne Cassidy MD 11/19/2014 Nurse visit Yvonne Cassidy MD 11/12/2014 Nurse visit Yvonne Cassidy MD 11/05/2014 Nurse visit Yvonne Cassidy MD 11/05/2014 [facility] Darin Park MD 10/29/2014 Nurse visit Yvonne Cassidy MD 10/24/2014 Nurse visit Yvonne Cassidy MD 10/15/2014 Nurse visit Yvonne Cassidy MD 10/11/2014 Office visit Karolyn Millan REGIONAL ADMINISTRATIVE ASSISTANT 10/09/2014 Nurse visit Yvonne Cassidy MD 10/04/2014 Nurse visit Yvonne Cassidy MD 09/19/2014 Surgery Karolyn Millan REGIONAL ADMINISTRATIVE ASSISTANT 09/13/2014 Office visit Yvonne Cassidy MD 09/06/2014 Nurse visit Yvonne Cassidy MD 08/28/2014 [facility] Chauncey Hogan MD 08/28/2014 [facility] Joe Thomas MD 08/23/2014 Nurse visit Yvonne Cassidy MD 08/22/2014 Surgery Joe Thomas MD 08/16/2014 Nurse visit Yvonne Cassidy MD 08/07/2014 Nurse visit Yvonne Cassidy MD 08/01/2014 Nurse visit Jessie Mock REGIONAL ADMINISTRATIVE ASSISTANT 07/25/2014 Nurse visit Nidia Darby REGIONAL ADMINISTRATIVE ASSISTANT 07/16/2014 Nurse visit Yvonne Cassidy MD 07/09/2014 [...] Cassidy MD 03/20/2014 Nurse visit Jessie Mock REGIONAL ADMINISTRATIVE ASSISTANT 03/13/2014 Nurse visit Donte Hastings REGIONAL ADMINISTRATIVE ASSISTANT 03/07/2014 Nurse visit Yvonne Cassidy MD 02/27/2014 Nurse visit Jessie Mock REGIONAL ADMINISTRATIVE ASSISTANT 02/20/2014 Nurse visit Donte Hastings REGIONAL ADMINISTRATIVE ASSISTANT 02/13/2014 Nurse visit Donte Hastings REGIONAL ADMINISTRATIVE ASSISTANT 02/13/2014 Procedures Joe Thomas MD 02/07/2014 Office visit Joe Thomas MD 02/06/2014 Nurse visit Yvonne Cassidy MD 01/17/2014 Nurse visit Nidia Darby REGIONAL ADMINISTRATIVE ASSISTANT 01/10/2014 Nurse visit Yvonne Cassidy MD 01/02/2014 Nurse visit Yvonne Cassidy MD 12/26/2013 Nurse visit Yvonne Cassidy MD 12/18/2013 Nurse visit Yvonne Cassidy MD 12/12/2013 Nurse visit Yvonne Cassidy MD 12/05/2013 Nurse visit Yvonne Cassidy MD 11/28/2013 Nurse visit Yvonne Cassidy MD 11/21/2013 Nurse visit Yvonne Cassidy MD 11/14/2013 Nurse visit Yvonne Cassidy MD 11/07/2013 Nurse visit Nidia Darby REGIONAL ADMINISTRATIVE ASSISTANT 10/31/2013 Nurse visit Nidia Darby REGIONAL ADMINISTRATIVE ASSISTANT 10/25/2013 Nurse visit Nidia Darby REGIONAL ADMINISTRATIVE ASSISTANT 10/18/2013 Voided Nidia Darby REGIONAL ADMINISTRATIVE ASSISTANT 10/10/2013 Voided Yvonne Cassidy MD 10/03/2013 Nurse [...] Mart MD 04/18/2013 Nurse visit Nidia Darby REGIONAL ADMINISTRATIVE ASSISTANT 04/04/2013 Nurse visit Nidia Darby REGIONAL ADMINISTRATIVE ASSISTANT 03/28/2013 Nurse visit Nidia Darby REGIONAL ADMINISTRATIVE ASSISTANT 03/21/2013 Nurse visit Nidia Darby REGIONAL ADMINISTRATIVE ASSISTANT 03/13/2013 Nurse visit Nidia Darby REGIONAL ADMINISTRATIVE ASSISTANT 03/09/2013 Nurse visit Nidia Darby REGIONAL ADMINISTRATIVE ASSISTANT 03/02/2013 Nurse visit Nidia Darby REGIONAL ADMINISTRATIVE ASSISTANT 02/21/2013 Nurse visit Nidia Darby REGIONAL ADMINISTRATIVE ASSISTANT 02/13/2013 Office visit Nidia Darby REGIONAL ADMINISTRATIVE ASSISTANT 02/06/2013 Nurse visit Bria Mart MD 01/31/2013 [...] Mart MD 10/04/2012 Nurse visit Nidia Darby REGIONAL ADMINISTRATIVE ASSISTANT 09/27/2012 Nurse visit Bria Mart MD 09/22/2012 [...] Mart MD 06/07/2012 Nurse visit Nidia Darby REGIONAL ADMINISTRATIVE ASSISTANT 06/07/2012 Voided Francisco J Jesus DO 06/01/2012 [...] Mart MD 09/08/2011 Office visit Jessie Mock REGIONAL ADMINISTRATIVE ASSISTANT 09/01/2011 Nurse visit Bria Mart MD 08/21/2011 [...]
--- OUTSIDE RECORDS SUMMARY | 2017-05-06 19:02 | XMS REPORT ---
Author Author Yvonne Cassidy Organization [facility] Address [address] [place], [place] [id number] Care Team Providers Care Property Developer Name Role Phone Yvonne Cassidy PCP Allergies [...] BILI 0.50 mg/dLCALCIUM 10.10 mg/dLeGFR >60 mL/min/1.73 [id number] 10.0 secsINR 1.0 PTT 28.20 secs 08/28/2014 [...] CVX Influenza 06/02/2010 sanofi pasteur PMC Fluzone [id number] Intramuscular Left Deltoid 06/02/2010 02/25/2010 999 History [...] to other allergen Dec 17 2014 4:48PM Payers Insurance Name Company Name Plan Name Plan Number Policy Number Policy Group Number Start Date [facility] [id number] [place] Self Insurance [id number] N /A History of Encounters Visit Date Visit Type Provider 12/17/2014 Nurse visit Yvonne Cassidy MD 12/13/2014 Nurse visit Yvonne Cassidy MD 11/28/2014 Nurse visit Yvonne Cassidy MD 11/19/2014 Nurse visit Yvonne Cassidy MD 11/12/2014 Nurse visit Yvonne Cassidy MD 11/05/2014 Nurse visit Yvonne Cassidy MD 10/29/2014 Nurse visit Yvonne Cassidy MD 10/24/2014 Nurse visit Yvonne Cassidy MD 10/15/2014 Nurse visit Yvonne Cassidy MD 10/11/2014 Office visit Karolyn Millan HEMATOLOGY TECHNOLOGIST 10/09/2014 Nurse visit Yvonne Cassidy MD 10/04/2014 Nurse visit Yvonne Cassidy MD 09/19/2014 Surgery Karolyn NiteshZafar Millan HEMATOLOGY TECHNOLOGIST 09/13/2014 Office visit Yvonne Cassidy MD 09/06/2014 Nurse visit Yvonne Cassidy MD 08/28/2014 Hospital Joe Thomas MD 08/28/2014 [facility] Chauncey Hogan MD 08/23/2014 Nurse visit Yvonne Cassidy MD 08/22/2014 Surgery Joe Thomas MD 08/16/2014 Nurse visit Yvonne Cassidy MD 08/07/2014 Nurse visit Yvonne Cassidy MD 08/01/2014 Nurse visit Jessie Mock HEMATOLOGY TECHNOLOGIST 07/25/2014 Nurse visit Nidia Darby HEMATOLOGY TECHNOLOGIST 07/16/2014 Nurse visit Yvonne Cassidy MD 07/09/2014 [...] Cassidy MD 03/20/2014 Nurse visit Jessie Mock HEMATOLOGY TECHNOLOGIST 03/13/2014 Nurse visit Donte Hastings HEMATOLOGY TECHNOLOGIST 03/07/2014 Nurse visit Yvonne Cassidy MD 02/27/2014 Nurse visit Jessie Mock HEMATOLOGY TECHNOLOGIST 02/20/2014 Nurse visit Donte Hastings HEMATOLOGY TECHNOLOGIST 02/13/2014 Procedures Joe Thomas MD 02/13/2014 Nurse visit Donte Hastings HEMATOLOGY TECHNOLOGIST 02/07/2014 Office visit Joe Tohmas MD 02/06/2014 Nurse visit Yvonne Cassidy MD 01/17/2014 Nurse visit Nidia Darby HEMATOLOGY TECHNOLOGIST 01/10/2014 Nurse visit Yvonne Cassidy MD 01/02/2014 Nurse visit Yvonne Cassidy MD 12/26/2013 Nurse visit Yvonne Cassidy MD 12/18/2013 Nurse visit Yvonne Cassidy MD 12/12/2013 Nurse visit Yvonne Cassidy MD 12/05/2013 Nurse visit Yvonne Cassidy MD 11/28/2013 Nurse visit Yvonne Cassidy MD 11/21/2013 Nurse visit Yvonne Cassidy MD 11/14/2013 Nurse visit Yvonne Cassdiy MD 11/07/2013 Nurse visit Nidia Darby HEMATOLOGY TECHNOLOGIST 10/31/2013 Nurse visit Nidia Darby HEMATOLOGY TECHNOLOGIST 10/25/2013 Nurse visit Nidia Darby HEMATOLOGY TECHNOLOGIST 10/18/2013 Voided Nidia Darby HEMATOLOGY TECHNOLOGIST 10/10/2013 Voided Yvonne Cassidy MD 10/03/2013 Nurse [...] visit Yvonne Cassidy MD 08/01/2013 Nurse visit Yvnone Cassidy MD 07/20/2013 Nurse visit Yvonne Cassidy [...] Mart MD 04/18/2013 Nurse visit Nidia Darby HEMATOLOGY TECHNOLOGIST 04/04/2013 Nurse visit Nidia Darby HEMATOLOGY TECHNOLOGIST 03/28/2013 Nurse visit Nidia Darby HEMATOLOGY TECHNOLOGIST 03/21/2013 Nurse visit Nidia Darby HEMATOLOGY TECHNOLOGIST 03/13/2013 Nurse visit Nidia Darby HEMATOLOGY TECHNOLOGIST 03/09/2013 Nurse visit Nidia Darby HEMATOLOGY TECHNOLOGIST 03/02/2013 Nurse visit Nidia Darby HEMATOLOGY TECHNOLOGIST 02/21/2013 Nurse visit Nidia Darby HEMATOLOGY TECHNOLOGIST 02/13/2013 Office visit Nidia Darby HEMATOLOGY TECHNOLOGIST 02/06/2013 Nurse visit Bria Mart MD 01/31/2013 [...] Mart MD 10/04/2012 Nurse visit Nidia Darby HEMATOLOGY TECHNOLOGIST 09/27/2012 Nurse visit Bria Mart MD 09/22/2012 [...] Francisco J Jesus 06/07/2012 Nurse visit Nidia Darby APRN 06/01/2012 Office visit Bria Mart MD 05/24/2012 Nurse visit Bria Mart MD 05/17/2012 Nurse visit Bria Mart MD 05/10/2012 Nurse visit Bria Mart MD 05/03/2012 Nurse visit Bria Mart MD 04/26/2012 Nurse visit Bria Mart MD 04/21/2012 Nurse visit Bria Matr MD 04/12/2012 Nurse visit Bria Mart MD [...] Mart MD 09/08/2011 Office visit Jessie Nish HEMATOLOGY TECHNOLOGIST 09/08/2011 Nurse visit Bria Mart MD 09/01/2011 [...]
--- OUTSIDE RECORDS SUMMARY | 2017-05-06 19:06 | XMS REPORT ---
Author Author Yvonne Cassidy [facility] Address [address] [place], [place] [address] Care Team Providers Care Machinist/Machine Builder Name Role Phone Yvonne Cassidy PCP Allergies [...] Reviewed 08/21/2011 12:00 AM Depo-Medrol 40 mg [facility]#[id number] Reviewed 03/02/2016 12:00 AM IMMUNOTHERAPY INJECTIONS Reviewed 03/06/2016 12:00 AM IMMUNOTHERAPY INJECTIONS Reviewed 03/11/2016 12:00 AM IMMUNOTHERAPY INJECTIONS Reviewed 03/17/2016 12:00 AM IMMUNOTHERAPY INJECTIONS Reviewed 09/08/2011 12:00 AM IMMUNOTHERAPY INJECTIONS Reviewed 03/26/2016 12:00 AM IMMUNOTHERAPY INJECTIONS Reviewed 09/24/2011 12:00 [...] Reviewed 11/27/2011 12:00 AM Depo-Medrol 40 mg [facility]#[id number] Reviewed 12/01/2011 12:00 AM IMMUNOTHERAPY INJECTIONS Reviewed [...] 02/13/2013 12:00 AM Decadron, Per 1 Mg [facility]# [id number] Reviewed 02/13/2013 12:00 AM Depo-Medrol, Per 80 Mg [facility]#[id number] Reviewed 06/05/2013 12:00 AM MAMMOGRAM SCREENING Returned [...] BILI 0.50 mg/dLCALCIUM 10.10 mg/dLeGFR >60 mL/min/1.73 [id number] 10.0 secsINR 1.0 PTT 28.20 secs 08/28/2014 [...] Of Immunizations Name Date Admin Mfg Name Mf Code Trade Name Lot# Route Inj Vis Given Vis Pub CVX Influenza 06/02/2010 sanofi pasteur PMC Fluzone [id number] Intramuscular Left Deltoid 06/02/2010 02/25/2010 999 Influenza 05/09/2015 sanofi pasteur PMC Fluzone [id number] Intramuscular Left Deltoid 05/09/2015 02/22/2015 141 History [...] to other allergen Mar 26 2016 3:34PM Payers Insurance Name Company Name Plan Name Plan Number Policy Number Policy Group Number Start Date [facility] [id number] June Count includes the [facility] Self Insurance Fund *INVALID State Self Insurance [id number] N/A Comp [place] [employer] [place] [id number] Wednesday, 2015 History of Encounters Visit Date Visit Type Provider 03/26/2016 Nurse visit Yvonne Cassidy MD 03/17/2016 [...] Cassidy MD 01/08/2016 Office visit Jessie Mock SPINNING FRAME CLEANER 12/25/2015 Nurse visit Yvonne Cassidy MD 12/09/2015 Nurse visit Yvonne Cassidy MD 12/02/2015 Nurse visit Yvonne Cassidy MD 11/29/2015 Nurse visit Donte Hastings SPINNING FRAME CLEANER 11/28/2015 Nurse visit Jessie Nish SPINNING FRAME CLEANER 11/27/2015 Office visit Jessie Mock SPINNING FRAME CLEANER 11/25/2015 Office visit Donte Hastings SPINNING FRAME CLEANER 11/18/2015 Nurse visit Donte Gerberran SPINNING FRAME CLEANER 11/11/2015 Nurse visit Jessie Mock SPINNING FRAME CLEANER 11/04/2015 Nurse visit Donte Darling SPINNING FRAME CLEANER 10/29/2015 Office visit Jessie Mock SPINNING FRAME CLEANER 10/28/2015 Nurse visit Jessie Nish SPINNING FRAME CLEANER 10/21/2015 Nurse visit Glenn Tejeda MD 10/15/2015 Nurse visit Francisco J Jesus DO 10/09/2015 Nurse visit Glenn Tejeda MD 10/02/2015 Office visit April Atkinson SPINNING FRAME CLEANER 10/01/2015 Nurse visit Jessie Mock SPINNING FRAME CLEANER 09/11/2015 Nurse visit Yvonne Cassidy MD [...] Office visit 05/29/2015 Office visit Karolyn Millan SPINNING FRAME CLEANER 05/29/2015 Nurse visit Yvonne Cassidy MD 05/14/2015 Nurse visit Francisco J Jesus DO 05/09/2015 Nurse visit Yvonne Cassidy MD 04/30/2015 Nurse visit Yvonne Cassidy MD 04/23/2015 Nurse visit Yvonne Cassidy MD 04/18/2015 Nurse visit Nidia Darby SPINNING FRAME CLEANER 04/09/2015 Nurse visit Yvonne Cassidy MD 04/01/2015 Nurse visit Yvonne Cassidy MD 03/27/[address] Cody Horvath MD 03/25/2015 [facility] Darin Park MD 03/19/2015 Nurse visit Yvonne Cassidy MD 03/19/2015 Office visit Nidia Darby SPINNING FRAME CLEANER 03/04/2015 Nurse visit Yvonne Cassidy MD [...] Office visit 12/31/2014 Office visit Karolyn Millan SPINNING FRAME CLEANER 12/24/2014 Nurse visit Yvonne Cassidy MD 12/17/2014 Nurse visit Yvonne Cassidy MD 12/13/2014 Nurse visit Yvonne Cassidy MD 11/28/2014 Nurse visit Yvonne Cassidy MD 11/19/2014 Nurse visit Yvonne Cassidy MD 11/12/2014 Nurse visit Yvonne Cassidy MD 11/05/2014 Nurse visit Yvonne Cassidy MD 11/05/2014 [facility] Darin Park MD 10/29/2014 Nurse visit Yvonne Cassidy MD 10/24/2014 Nurse visit Yvonne Cassidy MD 10/15/2014 Nurse visit Yvonne Cassidy MD 10/11/2014 Office visit Karolyn Millan SPINNING FRAME CLEANER 10/09/2014 Nurse visit Yvonne Cassidy MD 10/04/2014 Nurse visit Yvonne Cassidy MD 09/19/2014 Surgery Karolyn Millan SPINNING FRAME CLEANER 09/13/2014 Office visit Yvonne Cassidy MD 09/06/2014 Nurse visit Yvonne Cassidy MD 08/28/2014 [facility] Chauncey Hogan MD 08/28/2014 [facility] Joe Thomas MD 08/23/2014 Nurse visit Yvonne Cassidy MD 08/22/2014 Surgery Joe Thomas MD 08/16/2014 Nurse visit Yvonne Cassidy MD 08/07/2014 Nurse visit Yvonne Cassidy MD 08/01/2014 Nurse visit Jessie Mock SPINNING FRAME CLEANER 07/25/2014 Nurse visit Nidia Darby SPINNING FRAME CLEANER 07/16/2014 Nurse visit Yvonne Cassidy MD [...] Cassidy MD 03/20/2014 Nurse visit Jessie Mock SPINNING FRAME CLEANER 03/13/2014 Nurse visit Donte Hastings SPINNING FRAME CLEANER 03/07/2014 Nurse visit Yvonne Cassidy MD 02/27/2014 Nurse visit Jessie Mock SPINNING FRAME CLEANER 02/20/2014 Nurse visit Donte Hastings SPINNING FRAME CLEANER 02/13/2014 Nurse visit Donte Hastings SPINNING FRAME CLEANER 02/13/2014 Procedures Joe Thomas MD 02/07/2014 Office visit Joe Thomas MD 02/06/2014 Nurse visit Yvonne Cassidy MD 01/17/2014 Nurse visit Nidia Darby SPINNING FRAME CLEANER 01/10/2014 Nurse visit Yvonne Cassidy MD 01/02/2014 Nurse visit Yvonne Cassidy MD 12/26/2013 Nurse visit Yvonne Cassidy MD 12/18/2013 Nurse visit Yvonne Cassidy MD 12/12/2013 Nurse visit Yvonne Cassidy MD 12/05/2013 Nurse visit Yvonne Cassidy MD 11/28/2013 Nurse visit Yvonne Cassidy MD 11/21/2013 Nurse visit Yvonne Cassidy MD 11/14/2013 Nurse visit Yvonne Cassidy MD 11/07/2013 Nurse visit Nidia Darby SPINNING FRAME CLEANER 10/31/2013 Nurse visit Nidia Darby SPINNING FRAME CLEANER 10/25/2013 Nurse visit Nidia Darby SPINNING FRAME CLEANER 10/18/2013 Voided Nidia Darby SPINNING FRAME CLEANER 10/10/2013 Voided Yvonne Cassidy MD 10/03/2013 [...] Mart MD 04/18/2013 Nurse visit Nidia Darby SPINNING FRAME CLEANER 04/04/2013 Nurse visit Nidia Darby SPINNING FRAME CLEANER 03/28/2013 Nurse visit Nidia Darby SPINNING FRAME CLEANER 03/21/2013 Nurse visit Nidia Darby SPINNING FRAME CLEANER 03/13/2013 Nurse visit Nidia Darby SPINNING FRAME CLEANER 03/09/2013 Nurse visit Nidia Darby SPINNING FRAME CLEANER 03/02/2013 Nurse visit Nidia Darby SPINNING FRAME CLEANER 02/21/2013 Nurse visit Nidia Darby SPINNING FRAME CLEANER 02/13/2013 Office visit Nidia Darby SPINNING FRAME CLEANER 02/06/2013 Nurse visit Bria Mart MD [...] Mart MD 10/04/2012 Nurse visit Nidia Darby SPINNING FRAME CLEANER 09/27/2012 Nurse visit Bria Mart MD 09/22/2012 Nurse visit Bria Mart MD 09/12/2012 Nurse visit Bria Mart MD 09/05/2012 Nurse visit Francisco J Jesus DO 08/31/2012 Nurse visit Bria Mart MD 08/23/2012 Nurse visit Bria Mart MD 08/16/2012 Nurse visit Bria Mart MD 08/10/2012 Nurse visit Bria Mrat MD 08/03/2012 Nurse visit Bria Mart MD 07/26/2012 Nurse visit Bria Mart MD 07/13/2012 Nurse visit Bria Mart MD 07/05/2012 Nurse visit Bria Mart MD 06/21/2012 Nurse visit Bria Mart MD 06/14/2012 Nurse visit Bria Mart MD 06/07/2012 Nurse visit Nidia Darby SPINNING FRAME CLEANER 06/07/2012 Voided Francisco J Jesus DO [...] Mart MD 09/08/2011 Office visit Jessie Mock SPINNING FRAME CLEANER 09/01/2011 Nurse visit Bria Mart MD 08/21/2011 [...] Bria Mart MD 05/29/2009 Office visit Marium GLODEN
--- OUTSIDE RECORDS SUMMARY | 2017-05-06 19:10 | XMS REPORT ---
Author Author Jessie Mock [facility] Address [address] [place], [place] [id number] Care Team Providers Care Freight Coordinator Name Role Phone Jessie Mock PCP [...] RADEX WRIST COMPLETE MINIMUM 3 VIEWS Returned 07/16/2011 12:00 AM IMMUNOTHERAPY INJECTIONS Reviewed 07/16/2011 12:00 AM IMMUNOTHERAPY INJECTIONS Reviewed 07/28/2011 12:00 AM IMMUNOTHERAPY INJECTIONS Reviewed 08/06/2011 12:00 AM THER/PROPH/DIAG INJ SC/IM Reviewed 08/06/2011 12:00 AM IMMUNOTHERAPY INJECTIONS Reviewed 08/12/2011 12:00 AM IMMUNOTHERAPY INJECTIONS Reviewed 08/21/2011 12:00 AM THER/PROPH/DIAG INJ SC/IM Reviewed 08/21/2011 12:00 AM Depo-Medrol 40 mg [facility]#[id number] Reviewed 09/08/2011 12:00 AM IMMUNOTHERAPY INJECTIONS Reviewed [...] Reviewed 11/27/2011 12:00 AM Depo-Medrol 40 mg [facility]#[id number] Reviewed 12/01/2011 12:00 AM IMMUNOTHERAPY INJECTIONS Reviewed [...] 02/13/2013 12:00 AM Decadron, Per 1 Mg [facility]# [address]-33 Reviewed 02/13/2013 12:00 AM Depo-Medrol, Per 80 Mg [facility]#1564-8690-15 Reviewed 06/05/2013 12:00 AM MAMMOGRAM SCREENING Returned [...] BILI 0.50 mg/dLCALCIUM 10.10 mg/dLeGFR >60 mL/min/1.73 [id number] 10.0 secsINR 1.0 PTT 28.20 secs 08/28/2014 [...] CVX Influenza 06/02/2010 sanofi pasteur PMC Fluzone [id number] Intramuscular Left Deltoid 06/02/2010 02/25/2010 999 Influenza 05/09/2015 sanofi pasteur PMC Fluzone [id number] Intramuscular Left Deltoid 05/09/2015 02/22/2015 141 History [...] 2015 2:50PM Hypertension Nov 27 2015 2:50PM Payers Insurance Name Company Name Plan Name Plan Number Policy Number Policy Group Number Start Date [facility] [id number] June [facility] Self Insurance Fund *INVALID State Self Insurance [id number] N/A Comp [place] [id number] Wednesday, 2015 History of Encounters Visit Date Visit Type Provider 11/27/2015 Office visit Jessie Mock DATABASE PROGRAMMER ANALYST 11/25/2015 Office visit Donte Hastings DATABASE PROGRAMMER ANALYST 11/18/2015 Nurse visit Donte Gerberran DATABASE PROGRAMMER ANALYST 11/11/2015 Nurse visit Jessie Nish DATABASE PROGRAMMER ANALYST 11/04/2015 Nurse visit Donte Darling DATABASE PROGRAMMER ANALYST 10/29/2015 Office visit Jessie Mock DATABASE PROGRAMMER ANALYST 10/28/2015 Nurse visit Jessie Mock DATABASE PROGRAMMER ANALYST 10/21/2015 Nurse visit Glenn Tejeda MD 10/15/2015 Nurse visit Francisco J Jesus DO 10/09/2015 Nurse visit Glenn Tejeda MD 10/02/2015 Office visit April Atkinson DATABASE PROGRAMMER ANALYST 10/01/2015 Nurse visit Jessie Mock DATABASE PROGRAMMER ANALYST 09/11/2015 Nurse visit Yvonne Cassidy MD [...] Office visit 05/29/2015 Office visit Karolyn Millan DATABASE PROGRAMMER ANALYST 05/29/2015 Nurse visit Yvonne Cassidy MD 05/14/2015 Nurse visit Francisco J Jesus DO 05/09/2015 Nurse visit Yvonne Cassidy MD 04/30/2015 Nurse visit Yvonne Cassidy MD 04/23/2015 Nurse visit Yvonne Cassidy MD 04/18/2015 Nurse visit Nidia Darby DATABASE PROGRAMMER ANALYST 04/09/2015 Nurse visit Yvonne Cassidy MD 04/01/2015 Nurse visit Yvonne Cassidy MD 03/27/[address] Cody Horvath MD 03/25/2015 [facility] [place] MD 03/19/2015 Nurse visit Yvonne Cassidy MD 03/19/2015 Office visit Nidia Darby DATABASE PROGRAMMER ANALYST 03/04/2015 Nurse visit Yvonne Cassidy MD [...] Office visit 12/31/2014 Office visit Karolyn Millan DATABASE PROGRAMMER ANALYST 12/24/2014 Nurse visit Yvonne Cassidy MD 12/17/2014 Nurse visit Yvonne Cassidy MD 12/13/2014 Nurse visit Yvonne Cassidy MD 11/28/2014 Nurse visit Yvonne Cassidy MD 11/19/2014 Nurse visit Yvonne Cassidy MD 11/12/2014 Nurse visit Yvonne Cassidy MD 11/05/2014 Nurse visit Yvonne Cassidy MD 11/05/2014 [facility] [place] MD 10/29/2014 Nurse visit Yvonne Cassidy MD 10/24/2014 Nurse visit Yvonne Cassidy MD 10/15/2014 Nurse visit Yvonne Cassidy MD 10/11/2014 Office visit Karolyn Millan DATABASE PROGRAMMER ANALYST 10/09/2014 Nurse visit Yvonne Cassidy MD 10/04/2014 Nurse visit Yvonne Cassidy MD 09/19/2014 Surgery Karolyn Millan DATABASE PROGRAMMER ANALYST 09/13/2014 Office visit Yvonne Cassidy MD 09/06/2014 Nurse visit Yvonne Cassidy MD 08/28/2014 [facility] Chauncey Hogan MD 08/28/2014 [facility] Joe Thomas MD 08/23/2014 Nurse visit Yvonne Cassidy MD 08/22/2014 Surgery Joe Thomas MD 08/16/2014 Nurse visit Yvonne Cassidy MD 08/07/2014 Nurse visit Yvonne Cassidy MD 08/01/2014 Nurse visit Jessie Mock DATABASE PROGRAMMER ANALYST 07/25/2014 Nurse visit Nidia Darby DATABASE PROGRAMMER ANALYST 07/16/2014 Nurse visit Yvonne Cassidy MD [...] Cassidy MD 03/20/2014 Nurse visit Jessie Mock DATABASE PROGRAMMER ANALYST 03/13/2014 Nurse visit Donte Hastings DATABASE PROGRAMMER ANALYST 03/07/2014 Nurse visit Yvonne Cassidy MD 02/27/2014 Nurse visit Jessie Mock DATABASE PROGRAMMER ANALYST 02/20/2014 Nurse visit Donte Hastings DATABASE PROGRAMMER ANALYST 02/13/2014 Nurse visit Donte Hastings DATABASE PROGRAMMER ANALYST 02/13/2014 Procedures Joe Thomas MD 02/07/2014 Office visit Joe Thomas MD 02/06/2014 Nurse visit Yvonne Cassidy MD 01/17/2014 Nurse visit Nidia Darby DATABASE PROGRAMMER ANALYST 01/10/2014 Nurse visit Yvonne Cassidy MD 01/02/2014 Nurse visit Yvonne Cassidy MD 12/26/2013 Nurse visit Yvonne Cassidy MD 12/18/2013 Nurse visit Yvonne Cassidy MD 12/12/2013 Nurse visit Yvonne Cassidy MD 12/05/2013 Nurse visit Yvonne Cassidy MD 11/28/2013 Nurse visit Yvonne Cassidy MD 11/21/2013 Nurse visit Yvonne Cassidy MD 11/14/2013 Nurse visit Yvonne Cassidy MD 11/07/2013 Nurse visit Nidia Darby DATABASE PROGRAMMER ANALYST 10/31/2013 Nurse visit Nidia Darby DATABASE PROGRAMMER ANALYST 10/25/2013 Nurse visit Nidia Darby DATABASE PROGRAMMER ANALYST 10/18/2013 Voided Nidia Darby DATABASE PROGRAMMER ANALYST 10/10/2013 Voided Yvonne Cassidy MD 10/03/2013 [...] Mart MD 04/18/2013 Nurse visit Nidia Darby DATABASE PROGRAMMER ANALYST 04/04/2013 Nurse visit Nidia Darby DATABASE PROGRAMMER ANALYST 03/28/2013 Nurse visit Nidia Darby DATABASE PROGRAMMER ANALYST 03/21/2013 Nurse visit Nidia Darby DATABASE PROGRAMMER ANALYST 03/13/2013 Nurse visit Nidia Darby DATABASE PROGRAMMER ANALYST 03/09/2013 Nurse visit Nidia Darby DATABASE PROGRAMMER ANALYST 03/02/2013 Nurse visit Nidia Darby DATABASE PROGRAMMER ANALYST 02/21/2013 Nurse visit Nidia Darby DATABASE PROGRAMMER ANALYST 02/13/2013 Office visit Nidia Darby DATABASE PROGRAMMER ANALYST 02/06/2013 Nurse visit Bria Mart MD [...] Mart MD 10/04/2012 Nurse visit Nidia Darby DATABASE PROGRAMMER ANALYST 09/27/2012 Nurse visit Bria Mart MD [...] Mart MD 06/07/2012 Nurse visit Nidia Darby DATABASE PROGRAMMER ANALYST 06/07/2012 Voided Francisco J Jesus DO [...] visit Bria Mart MD 11/12/2010 Office visit rBia Mart MD 06/03/2010 Office visit Bria Mart MD 05/26/2010 Office visit Bria Mart MD 11/07/2009 Office visit Bria Mart MD 05/29/2009 Office visit Marium GOLDEN
--- OUTSIDE RECORDS SUMMARY | 2017-05-06 19:15 | XMS REPORT ---
Author Author Yvonne Cassidy Organization [facility] Address [address] [place], [place] [id number] Care Team Providers Care Clerk Operator Name Role Phone Yvonne Cassidy PCP [...] 12:00 AM Depo-Medrol 40 mg [facility]#[id number] Reviewed 03/02/2016 12:00 AM IMMUNOTHERAPY INJECTIONS Reviewed [...] 12:00 AM Depo-Medrol 40 mg [facility]#[id number] Reviewed 12/01/2011 12:00 AM IMMUNOTHERAPY INJECTIONS Reviewed [...] Decadron, Per 1 Mg [facility]# [address]-64 Reviewed 02/13/2013 12:00 AM Depo-Medrol, Per 80 Mg [facility]#2817-5531-13 Reviewed 06/05/2013 12:00 AM MAMMOGRAM SCREENING Reviewed [...] CVX Influenza 06/02/2010 sanofi pasteur PMC Fluzone [id number] Intramuscular Left Deltoid 06/02/2010 02/25/2010 999 Influenza 05/09/2015 sanofi pasteur PMC Fluzone [id number] Intramuscular Left Deltoid 05/09/2015 02/22/2015 141 History [...] (benign positional vertigo) Jun 16 2016 9:19AM Payers Insurance Name Company Name Plan Name Plan Number Policy Number Policy Group Number Start Date [facility] [id number] June [facility] Self Insurance Fund *INVALID State Self Insurance [id number] N/[place] Comp [place] [id number] Wednesday, 2015 History of Encounters Visit Date [...] Cassidy MD 04/23/2016 Office visit Jessie Mock SONOSCOPE OPERATOR 04/13/2016 Nurse visit Yvonne Cassidy MD 04/07/2016 Nurse visit Yvonne Cassidy MD 04/01/2016 Office visit Jessie Mock SONOSCOPE OPERATOR 03/26/2016 Nurse visit Yvonne Cassidy MD 03/17/2016 Nurse visit Yvonne Cassidy MD 03/11/2016 Nurse visit Yvonne Cassidy MD 03/04/2016 Office visit Jessie Mock SONOSCOPE OPERATOR 03/02/2016 Nurse visit Yvonne Cassidy MD 02/19/2016 Nurse visit Yvonne Cassidy MD 02/12/2016 Office visit Jessie Mock SONOSCOPE OPERATOR 02/03/2016 Nurse visit Yvonne Cassidy MD 01/27/2016 Nurse visit Yvonne Cassidy MD 01/15/2016 Nurse visit Yvonne Cassidy MD 01/08/2016 Office visit Jessie Mock SONOSCOPE OPERATOR 12/25/2015 Nurse visit Yvonne Cassidy MD 12/09/2015 Nurse visit Yvonne Cassidy MD 12/02/2015 Nurse visit Yvonne Cassidy MD 11/29/2015 Nurse visit Donte Hastings SONOSCOPE OPERATOR 11/28/2015 Nurse visit Jessie Mock SONOSCOPE OPERATOR 11/27/2015 Office visit Jessie Nish SONOSCOPE OPERATOR 11/25/2015 Office visit Donte Hastings SONOSCOPE OPERATOR 11/18/2015 Nurse visit Donte Hastings SONOSCOPE OPERATOR 11/11/2015 Nurse visit Jessie Nish SONOSCOPE OPERATOR 11/04/2015 Nurse visit Donte Hastings SONOSCOPE OPERATOR 10/29/2015 Office visit Jessie Nish SONOSCOPE OPERATOR 10/28/2015 Nurse visit Jessie Mock SONOSCOPE OPERATOR 10/21/2015 Nurse visit Glenn Tejeda MD 10/15/2015 Nurse visit Francisco J Jesus DO 10/09/2015 Nurse visit Glenn Tejeda MD 10/02/2015 Office visit April Atkinson SONOSCOPE OPERATOR 10/01/2015 Nurse visit Jessie Mock SONOSCOPE OPERATOR 09/11/2015 Nurse visit Yvonne Cassidy MD [...] Office visit 05/29/2015 Office visit Karolyn Millan SONOSCOPE OPERATOR 05/29/2015 Nurse visit Yvonne Cassidy MD 05/14/2015 Nurse visit Francisco J Jesus 05/09/2015 Nurse visit Yvonne Cassidy MD 04/30/2015 Nurse visit Yvonne Cassidy MD 04/23/2015 Nurse visit Yvonne Cassidy MD 04/18/2015 Nurse visit Nidia Darby SONOSCOPE OPERATOR 04/09/2015 Nurse visit Yvonne Cassidy MD 04/01/2015 Nurse visit Yvonne Cassidy MD 03/27/[address] Cody Horvath MD 03/25/2015 [facility] [place] MD 03/19/2015 Nurse visit Yvonne Cassidy MD 03/19/2015 Office visit Nidia Darby SONOSCOPE OPERATOR 03/04/2015 Nurse visit Yvonne Cassidy MD [...] Office visit 12/31/2014 Office visit Karolyn Millan SONOSCOPE OPERATOR 12/24/2014 Nurse visit Yvonne Cassidy MD [...] Cassidy MD 10/11/2014 Office visit Karolyn Millan SONOSCOPE OPERATOR 10/09/2014 Nurse visit Yvonne Cassidy MD 10/04/2014 Nurse visit Yvonne Cassidy MD 09/19/2014 Surgery Karolyn Millan SONOSCOPE OPERATOR 09/13/2014 Office visit Yvonne Cassidy MD 09/06/2014 Nurse visit Yvonne Cassidy MD 08/28/2014 [facility] Chauncey Hogan MD 08/28/2014 [facility] Joe Thomas MD 08/23/2014 Nurse visit Yvnone Cassidy MD 08/22/2014 Surgery Joe Thomas MD 08/16/2014 Nurse visit Yvonne Cassidy MD 08/07/2014 Nurse visit Yvonne Cassidy MD 08/01/2014 Nurse visit Jessie Mock SONOSCOPE OPERATOR 07/25/2014 Nurse visit Nidia Darby SONOSCOPE OPERATOR 07/16/2014 Nurse visit Yvonne Cassidy MD [...] Cassidy MD 03/20/2014 Nurse visit Jessie Mock SONOSCOPE OPERATOR 03/13/2014 Nurse visit Donte Hastings SONOSCOPE OPERATOR 03/07/2014 Nurse visit Yvonne Cassidy MD 02/27/2014 Nurse visit Jessie Mock SONOSCOPE OPERATOR 02/20/2014 Nurse visit Donte Hastings SONOSCOPE OPERATOR 02/13/2014 Nurse visit Donte Hastings SONOSCOPE OPERATOR 02/13/2014 Procedures Joe Thomas MD 02/07/2014 Office visit Joe Thomas MD 02/06/2014 Nurse visit Yvonne Cassidy MD 01/17/2014 Nurse visit Nidia Darby SONOSCOPE OPERATOR 01/10/2014 Nurse visit Yvonne Cassidy MD 01/02/2014 Nurse visit Yvonne Cassidy MD 12/26/2013 Nurse visit Yvonne Cassidy MD 12/18/2013 Nurse visit Yvonne Cassidy MD 12/12/2013 Nurse visit Yvonne Cassidy MD 12/05/2013 Nurse visit Yvonne Cassidy MD 11/28/2013 Nurse visit Yvonne Cassidy MD 11/21/2013 Nurse visit Yvonne Cassidy MD 11/14/2013 Nurse visit Yvonne Casisdy MD 11/07/2013 Nurse visit Nidia Darby SONOSCOPE OPERATOR 10/31/2013 Nurse visit Nidia Darby SONOSCOPE OPERATOR 10/25/2013 Nurse visit Nidia Darby SONOSCOPE OPERATOR 10/18/2013 Voided Nidia Darby SONOSCOPE OPERATOR 10/10/2013 Voided Yvonne Cassidy MD 10/03/2013 [...] visit Joe Thomas MD 06/07/2013 Nurse visit rBia Mart MD 06/02/2013 Office visit Joe Thomas MD 06/01/2013 Office visit Joe Thomas MD 05/30/2013 Nurse visit Bria Mart MD 05/23/2013 Nurse visit rBia Mart MD 05/18/2013 Office visit Joe Thomas MD 05/15/2013 Nurse visit Bria Mart MD 05/09/2013 Nurse visit Bria Mart MD 05/01/2013 Nurse visit Bria Mart MD 04/18/2013 Nurse visit Nidia Sheridan Darby SONOSCOPE OPERATOR 04/04/2013 Nurse visit Nidia Sheridan Darby SONOSCOPE OPERATOR 03/28/2013 Nurse visit Nidia Sheridan Darby SONOSCOPE OPERATOR 03/21/2013 Nurse visit Nidia GonzalesZafar Dabry SONOSCOPE OPERATOR 03/13/2013 Nurse visit Nidia Sheridan Darby SONOSCOPE OPERATOR 03/09/2013 Nurse visit Nidia Sheridan Darby SONOSCOPE OPERATOR 03/02/2013 Nurse visit Nidia Sheridan Darby SONOSCOPE OPERATOR 02/21/2013 Nurse visit Nidia Sheridan Darby SONOSCOPE OPERATOR 02/13/2013 Office visit Nidia Darby SONOSCOPE OPERATOR 02/06/2013 Nurse visit Bria Mart MD [...] Mart MD 10/04/2012 Nurse visit Nidia Darby SONOSCOPE OPERATOR 09/27/2012 Nurse visit Bria Mart MD [...] MD 06/07/2012 Nurse visit Nidia GonzalesZafar Darby SONOSCOPE OPERATOR 06/07/2012 Voided Francisco J Jesus 06/01/2012 [...] Mart MD 09/08/2011 Office visit Jessie Nish SONOSCOPE OPERATOR 09/01/2011 Nurse visit Bria Mart MD [...]
--- OUTSIDE RECORDS SUMMARY | 2017-05-06 19:19 | XMS REPORT ---
Author Author Yvonne Cassidy Organization [facility] Address [address] [place], [place] [id number] Care Team Providers Care Hotel Controller Name Role Phone Yvonne Cassidy PCP Yvonne [...] Reviewed 08/21/2011 12:00 AM Depo-Medrol 40 mg [facility]#[id number] Reviewed 03/02/2016 12:00 AM IMMUNOTHERAPY INJECTIONS Reviewed [...] Reviewed 11/27/2011 12:00 AM Depo-Medrol 40 mg [facility]#[id number] Reviewed 12/01/2011 12:00 AM IMMUNOTHERAPY INJECTIONS Reviewed [...] Reviewed 11/16/2016 12:00 AM IMMUNOTHERAPY INJECTIONS Reviewed 02/02/2012 12:00 [...] 02/13/2013 12:00 AM Decadron, Per 1 Mg [facility]# [address]-87 Reviewed 02/13/2013 12:00 AM Depo-Medrol, Per 80 Mg [facility]#[id number] Reviewed 06/05/2013 12:00 AM MAMMOGRAM SCREENING Reviewed [...] Vis Given Vis Pub CVX Influenza 06/02/2010 [facility] PMC Fluzone [id number] Intramuscular Left Deltoid 06/02/2010 02/25/2010 999 [facility]09[facility] [id number] Intramuscular Left Deltoid 05/09/2015 02/22/2015 141 Pneumococcal 06/29/2016 [facility] Prevnar 13 [id number] Intramuscular Right Deltoid 06/29/2016 09/14/2012 133 Zostavax [...] 4:22PM Allergic rhinitis; due to other allergen b 2015 3:46PM Allergic rhinitis due to other [...] to other allergen Nov 16 2016 4:28PM Payers Insurance Name Company Name Plan Name Plan Number Policy Number Policy Group Number Start Date [employer] [facility] [id number] June [facility] Self Insurance Fund *INVALID State Self Insurance [id number] N/[place] Comp [place] [id number] Wednesday, 2015 History of Encounters Visit Date Visit Type Provider 11/16/2016 Nurse visit Yvonne Cassidy MD 11/10/2016 Nurse visit Yvonne Cassidy MD 11/02/2016 Nurse visit Donte Hastings PORTABLE IRRIGATION OPERATOR 10/28/2016 Nurse visit Yvonne Cassidy MD [...] Cassidy MD 07/14/2016 Nurse visit Donte Hastings PORTABLE IRRIGATION OPERATOR 07/06/2016 Nurse visit Yvonne Cassidy MD 06/29/2016 Nurse visit Yvonne Cassidy MD 06/24/2016 Nurse visit Yvonne Cassidy MD 06/16/2016 Office visit Yvonne Cassidy MD 06/14/2016 [facility] [place] MD 06/09/2016 Nurse visit Yvonne Cassidy MD 06/02/2016 Office visit 06/02/2016 Office visit Karolyn Millan PORTABLE IRRIGATION OPERATOR 06/01/2016 Nurse visit Yvonne Cassidy MD 05/27/2016 Nurse visit Yvonne Cassidy MD 05/11/2016 Nurse visit Yvonne Cassidy MD 05/05/2016 Nurse visit Yvonne Cassidy MD 04/29/2016 Nurse visit Yvonne Cassidy MD 04/23/2016 Office visit Jessie Mock PORTABLE IRRIGATION OPERATOR 04/13/2016 Nurse visit Yvonne Cassidy MD 04/07/2016 Nurse visit Yvonne Cassidy MD 04/01/2016 Office visit Jessie Mock PORTABLE IRRIGATION OPERATOR 03/26/2016 Nurse visit Yvonne Cassidy MD 03/17/2016 Nurse visit Yvonne Cassidy MD 03/11/2016 Nurse visit Yvonne Cassidy MD 03/04/2016 Office visit Jessie Mock PORTABLE IRRIGATION OPERATOR 03/02/2016 Nurse visit Yvonne Cassidy MD 02/19/2016 Nurse visit Yvonne Cassidy MD 02/12/2016 Office visit Jessie Mock PORTABLE IRRIGATION OPERATOR 02/03/2016 Nurse visit Yvonne Cassidy MD 01/27/2016 Nurse visit Yvonne Cassidy MD 01/15/2016 Nurse visit Yvonne Cassidy MD 01/08/2016 Office visit Jessie Mock PORTABLE IRRIGATION OPERATOR 12/25/2015 Nurse visit Yvonne Cassidy MD 12/09/2015 Nurse visit Yvonne Cassidy MD 12/02/2015 Nurse visit Yvonne Cassidy MD 11/29/2015 Nurse visit Donte Hastings PORTABLE IRRIGATION OPERATOR 11/28/2015 Nurse visit Jessie Mock PORTABLE IRRIGATION OPERATOR 11/27/2015 Office visit Jessie Mock PORTABLE IRRIGATION OPERATOR 11/25/2015 Office visit Donte Hastings PORTABLE IRRIGATION OPERATOR 11/18/2015 Nurse visit Donte Hastings PORTABLE IRRIGATION OPERATOR 11/11/2015 Nurse visit Jessie Mock PORTABLE IRRIGATION OPERATOR 11/04/2015 Nurse visit Donte Hastings PORTABLE IRRIGATION OPERATOR 10/29/2015 Office visit Jessie Mock PORTABLE IRRIGATION OPERATOR 10/28/2015 Nurse visit Jessie Mock PORTABLE IRRIGATION OPERATOR 10/21/2015 Nurse visit Glenn Tejeda MD 10/15/2015 Nurse visit Francisco J Jesus DO 10/09/2015 Nurse visit Glenn Tejeda MD 10/02/2015 Office visit April Atkinson PORTABLE IRRIGATION OPERATOR 10/01/2015 Nurse visit Jessie Mock PORTABLE IRRIGATION OPERATOR 09/11/2015 Nurse visit Yvonne Cassidy MD [...] Office visit 05/29/2015 Office visit Karolyn Millan PORTABLE IRRIGATION OPERATOR 05/29/2015 Nurse visit Yvonne Cassidy MD 05/14/2015 Nurse visit Francisco J Jesus DO 05/09/2015 Nurse visit Yvonne Cassidy MD 04/30/2015 Nurse visit Yvonne Cassidy MD 04/23/2015 Nurse visit Yvonne Cassidy MD 04/18/2015 Nurse visit Nidia Darby PORTABLE IRRIGATION OPERATOR 04/09/2015 Nurse visit Yvonne Cassidy MD 04/01/2015 Nurse visit Yvonne Cassidy MD 03/27/[address] Cody Horvath MD 03/25/2015 [facility] [place] MD 03/19/2015 Nurse visit Yvonne Cassidy MD 03/19/2015 Office visit Nidia Darby PORTABLE IRRIGATION OPERATOR 03/04/2015 Nurse visit Yvonne Cassidy MD [...] Office visit 12/31/2014 Office visit Karolyn Millan PORTABLE IRRIGATION OPERATOR 12/24/2014 Nurse visit Yvonne Cassidy MD 12/17/2014 Nurse visit Yvonne Cassidy MD 12/13/2014 Nurse visit Yvonne Cassidy MD 11/28/2014 Nurse visit Yvonne Cassidy MD 11/19/2014 Nurse visit Yvonne Cassidy MD 11/12/2014 Nurse visit Yvonne Cassidy MD 11/05/2014 Nurse visit Yvonne Cassidy MD 11/05/2014 [facility] Darin [place] MD 10/29/2014 Nurse visit Yvonne Cassidy MD 10/24/2014 Nurse visit Yvonne Cassidy MD 10/15/2014 Nurse visit Yvonne Cassidy MD 10/11/2014 Office visit Karolyn Millan PORTABLE IRRIGATION OPERATOR 10/09/2014 Nurse visit Yvonne Cassidy MD 10/04/2014 Nurse visit Yvonne Cassidy MD 09/19/2014 Surgery Karolyn Millan PORTABLE IRRIGATION OPERATOR 09/13/2014 Office visit Yvonne Cassidy MD 09/06/2014 Nurse visit Yvonne Cassidy MD 08/28/2014 [facility] Chauncey Hogan MD 08/28/2014 [facility] Joe Thomas MD 08/23/2014 Nurse visit Yvonne Cassidy MD 08/22/2014 Surgery Joe Thomas MD 08/16/2014 Nurse visit Yvonne Cassidy MD 08/07/2014 Nurse visit Yvonne Cassidy MD 08/01/2014 Nurse visit Jessie Mock PORTABLE IRRIGATION OPERATOR 07/25/2014 Nurse visit Nidia Darby PORTABLE IRRIGATION OPERATOR 07/16/2014 Nurse visit Yvonne Cassidy MD [...] Cassidy MD 03/20/2014 Nurse visit Jessie Mock PORTABLE IRRIGATION OPERATOR 03/13/2014 Nurse visit Donte Hastings PORTABLE IRRIGATION OPERATOR 03/07/2014 Nurse visit Yvonne Cassidy MD 02/27/2014 Nurse visit Jessie Mock PORTABLE IRRIGATION OPERATOR 02/20/2014 Nurse visit Donte Hastings PORTABLE IRRIGATION OPERATOR 02/13/2014 Nurse visit Donte Hastings PORTABLE IRRIGATION OPERATOR 02/13/2014 Procedures Joe Thomas MD 02/07/2014 Office visit Joe Thomas MD 02/06/2014 Nurse visit Yvonne Cassidy MD 01/17/2014 Nurse visit Nidia Darby PORTABLE IRRIGATION OPERATOR 01/10/2014 Nurse visit Yvonne Cassidy MD 01/02/2014 Nurse visit Yvonne Cassidy MD 12/26/2013 Nurse visit Yvonne Cassidy MD 12/18/2013 Nurse visit Yvonne Cassidy MD 12/12/2013 Nurse visit Yvonne Cassidy MD 12/05/2013 Nurse visit Yvonne Cassidy MD 11/28/2013 Nurse visit Yvonne Cassidy MD 11/21/2013 Nurse visit Yvonne Cassidy MD 11/14/2013 Nurse visit Yvonne Cassidy MD 11/07/2013 Nurse visit Nidia Darby PORTABLE IRRIGATION OPERATOR 10/31/2013 Nurse visit Nidia Darby PORTABLE IRRIGATION OPERATOR 10/25/2013 Nurse visit Nidia Darby PORTABLE IRRIGATION OPERATOR 10/18/2013 Voided Nidia Darby PORTABLE IRRIGATION OPERATOR 10/10/2013 Voided Yvonne Cassidy MD 10/03/2013 [...] Mart MD 04/18/2013 Nurse visit Nidia Darby PORTABLE IRRIGATION OPERATOR 04/04/2013 Nurse visit Nidia Darby PORTABLE IRRIGATION OPERATOR 03/28/2013 Nurse visit Nidia Darby PORTABLE IRRIGATION OPERATOR 03/21/2013 Nurse visit Nidia Darby PORTABLE IRRIGATION OPERATOR 03/13/2013 Nurse visit Nidia Darby PORTABLE IRRIGATION OPERATOR 03/09/2013 Nurse visit Nidia Darby PORTABLE IRRIGATION OPERATOR 03/02/2013 Nurse visit Nidia Darby PORTABLE IRRIGATION OPERATOR 02/21/2013 Nurse visit Nidia Darby PORTABLE IRRIGATION OPERATOR 02/13/2013 Office visit Nidia Darby PORTABLE IRRIGATION OPERATOR 02/06/2013 Nurse visit Bria Mart MD [...] Mart MD 10/04/2012 Nurse visit Nidia Darby PORTABLE IRRIGATION OPERATOR 09/27/2012 Nurse visit Bria Mart MD 09/22/2012 Nurse visit Bria Mart MD 09/12/2012 Nurse visit Bria Mart MD 09/05/2012 Nurse visit Francisco J Edin ISSA 08/31/2012 Nurse visit rBia Mart MD 08/23/2012 Nurse visit Bria Mart MD 08/16/2012 Nurse visit Bria Mart MD 08/10/2012 Nurse visit Bria Mart MD 08/03/2012 Nurse visit Bria Mart MD 07/26/2012 Nurse visit Bria Mart MD 07/13/2012 Nurse visit Bria Mart MD 07/05/2012 Nurse visit Bria Mart MD 06/21/2012 Nurse visit Bria Mart MD 06/14/2012 Nurse visit Bria Mart MD 06/07/2012 Nurse visit Nidia Darby PORTABLE IRRIGATION OPERATOR 06/07/2012 Voided Francisco J Jesus DO [...] Mart MD 09/08/2011 Office visit Jessie Nish PORTABLE IRRIGATION OPERATOR 09/01/2011 Nurse visit Bria Mart MD [...] visit Bria Mart MD 03/25/2011 Nurse visit Bira Mart MD 02/25/2011 Office visit Bria Mart MD 12/30/2010 Office visit Bria Mart MD 11/12/2010 Office visit Brai Mart MD 06/03/2010 Office visit Bria Mart MD 05/26/2010 Office visit Bria Mart MD 11/07/2009 Office visit Bria Mart MD 05/29/2009 Office visit Marium GOLDEN
--- OUTSIDE RECORDS SUMMARY | 2017-05-06 19:23 | XMS REPORT ---
Author Author Yvonne Cassidy [facility] Address [address] [place], [place] [address] Care Team Providers Care Biodiesel Plant Manager Name Role Phone Yvonne Cassidy PCP [...] Reviewed 08/21/2011 12:00 AM Depo-Medrol [address] [facility]#[id number] Reviewed 09/08/2011 12:00 AM IMMUNOTHERAPY INJECTIONS Reviewed [...] Reviewed 11/27/2011 12:00 AM Depo-Medrol [address] [facility]#[id number] Reviewed 12/01/2011 12:00 AM IMMUNOTHERAPY INJECTIONS Reviewed [...] 02/13/2013 12:00 AM Decadron, Per [address] [facility]# [address]-26 Reviewed 02/13/2013 12:00 AM Depo-Medrol, Per [address] [facility]#[id number] Reviewed 06/05/2013 12:00 AM MAMMOGRAM SCREENING Returned [...] BILI 0.50 mg/dLCALCIUM 10.10 mg/dLeGFR >60 mL/min/1.73 [id number] 10.0 secsINR 1.0 PTT 28.20 secs 08/28/2014 [...] CVX Influenza 06/02/2010 sanofi pasteur PMC Fluzone [id number] Intramuscular Left Deltoid 06/02/2010 02/25/2010 999 Influenza 05/09/2015 [facility] PMC Fluzone [id number] Intramuscular Left Deltoid 05/09/2015 02/22/2015 141 History [...] to other allergen Jul 22 2015 4:12PM Payers Insurance Name Company Name Plan Name Plan Number Policy Number Policy Group Number Start Date [facility] [id number] [place] *INVALID [place] Self Insurance [id number] N /A History of Encounters Visit Date Visit Type Provider 07/22/2015 Nurse visit Yvonne Cassidy MD 07/09/2015 Nurse visit Yvonne Cassidy MD 07/01/2015 Nurse visit Yvonne Cassidy MD 06/26/2015 Nurse visit Yvonne Cassidy MD 06/17/2015 Nurse visit Yvonne Cassidy MD 06/10/2015 Nurse visit Yvonne Cassidy MD 06/04/2015 Nurse visit Yvonne Cassidy MD 05/29/2015 Office visit Karolyn Millan ELECTRIC KNIFE OPERATOR 05/29/2015 Nurse visit Yvonne Cassidy MD 05/14/2015 Nurse visit Francisco J Jesus DO 05/09/2015 Nurse visit Yvonne Cassidy MD 04/30/2015 Nurse visit Yvonne Cassidy MD 04/23/2015 Nurse visit Yvonne Cassidy MD 04/18/2015 Nurse visit Nidia Darby ELECTRIC KNIFE OPERATOR 04/09/2015 Nurse visit Yvonne Cassidy MD 04/01/2015 Nurse visit Yvonne Cassidy MD 03/27/[address] Cody Horvath MD 03/25/2015 [facility] Alexander Park MD 03/19/2015 Nurse visit Yvonne Cassidy MD 03/19/2015 Office visit Nidia Darby ELECTRIC KNIFE OPERATOR 03/04/2015 Nurse visit Yvonne Cassidy MD [...] MD 12/31/2014 Office visit Karolyn Millan ELECTRIC KNIFE OPERATOR 12/24/2014 Nurse visit Yvonne Cassidy MD [...] MD 10/11/2014 Office visit Karolyn Millan ELECTRIC KNIFE OPERATOR 10/09/2014 Nurse visit Yvonne Cassidy MD 10/04/2014 Nurse visit Yvonne Cassidy MD 09/19/2014 Surgery Karolyn Millan ELECTRIC KNIFE OPERATOR 09/13/2014 Office visit Yvonne Cassidy MD 09/06/2014 Nurse visit Yvonne Cassidy MD 08/28/2014 [facility] Chauncey Hogan MD 08/28/2014 [facility] Joe Thomas MD 08/23/2014 Nurse visit Yvonne Cassidy MD 08/22/2014 Surgery Joe Thomas MD 08/16/2014 Nurse visit Yvonne Cassidy MD 08/07/2014 Nurse visit Yvonne Cassidy MD 08/01/2014 Nurse visit Jessie Mock ELECTRIC KNIFE OPERATOR 07/25/2014 Nurse visit Nidia Darby ELECTRIC KNIFE OPERATOR 07/16/2014 Nurse visit Yvonne Cassidy MD [...] MD 03/20/2014 Nurse visit Jessie Mock ELECTRIC KNIFE OPERATOR 03/13/2014 Nurse visit Donte Hastings ELECTRIC KNIFE OPERATOR 03/07/2014 Nurse visit Yvonne Cassidy MD 02/27/2014 Nurse visit Jessie Mock ELECTRIC KNIFE OPERATOR 02/20/2014 Nurse visit Donte Hastings ELECTRIC KNIFE OPERATOR 02/13/2014 Nurse visit Donte Hastings ELECTRIC KNIFE OPERATOR 02/13/2014 Procedures Joe Thomas MD 02/07/2014 Office visit Joe Thomas MD 02/06/2014 Nurse visit Yvonne Cassidy MD 01/17/2014 Nurse visit Nidia Darby ELECTRIC KNIFE OPERATOR 01/10/2014 Nurse visit Yvonne Cassidy MD 01/02/2014 Nurse visit Yvonne Cassidy MD 12/26/2013 Nurse visit Yvonne Cassidy MD 12/18/2013 Nurse visit Yvonne Cassidy MD 12/12/2013 Nurse visit Yvonne Cassidy MD 12/05/2013 Nurse visit Yvonne Cassidy MD 11/28/2013 Nurse visit Yvonne Cassidy MD 11/21/2013 Nurse visit Yvonne Cassidy MD 11/14/2013 Nurse visit Yvonne Cassidy MD 11/07/2013 Nurse visit Nidia Darby ELECTRIC KNIFE OPERATOR 10/31/2013 Nurse visit Nidia Darby ELECTRIC KNIFE OPERATOR 10/25/2013 Nurse visit Nidia Darby ELECTRIC KNIFE OPERATOR 10/18/2013 Voided Nidia Darby ELECTRIC KNIFE OPERATOR 10/10/2013 Voided Yvonne Cassidy MD 10/03/2013 [...] Mart MD 04/18/2013 Nurse visit Nidia Darby ELECTRIC KNIFE OPERATOR 04/04/2013 Nurse visit Nidia Darby ELECTRIC KNIFE OPERATOR 03/28/2013 Nurse visit Nidia Darby ELECTRIC KNIFE OPERATOR 03/21/2013 Nurse visit Nidia Darby ELECTRIC KNIFE OPERATOR 03/13/2013 Nurse visit Nidia Darby ELECTRIC KNIFE OPERATOR 03/09/2013 Nurse visit Nidia Darby ELECTRIC KNIFE OPERATOR 03/02/2013 Nurse visit Nidia Darby ELECTRIC KNIFE OPERATOR 02/21/2013 Nurse visit Nidia Darby ELECTRIC KNIFE OPERATOR 02/13/2013 Office visit Nidia Darby ELECTRIC KNIFE OPERATOR 02/06/2013 Nurse visit Bria Mart MD [...] MD 10/04/2012 Nurse visit Nidia Darby ELECTRIC KNIFE OPERATOR 09/27/2012 Nurse visit Bria Mart MD [...] MD 06/07/2012 Nurse visit Nidia Sheridan Darby ELECTRIC KNIFE OPERATOR 06/07/2012 Voided Francisco J Jesus DO [...] MD 09/08/2011 Office visit Jessie Mock ELECTRIC KNIFE OPERATOR 09/01/2011 Nurse visit Bria Mart MD [...]
--- OUTSIDE RECORDS SUMMARY | 2017-05-06 19:26 | XMS REPORT ---
Author Author Yvonne Cassidy [facility] Address [address] [place], [place] [address] Care Team Providers Care Outdoor Landscape Architect Name Role Phone Yvonne Cassidy PCP Allergies [...] Reviewed 08/21/2011 12:00 AM Depo-Medrol 40 mg [facility]#[id number] Reviewed 09/08/2011 12:00 AM IMMUNOTHERAPY INJECTIONS Reviewed [...] Reviewed 11/27/2011 12:00 AM Depo-Medrol 40 mg [facility]#[id number] Reviewed 12/01/2011 12:00 AM IMMUNOTHERAPY INJECTIONS Reviewed [...] Decadron, Per 1 Mg [facility]# [address]-93 Reviewed 02/13/2013 12:00 AM Depo-Medrol, Per 80 Mg [facility]#[id number] Reviewed 06/05/2013 12:00 AM MAMMOGRAM SCREENING Returned [...] BILI 0.50 mg/dLCALCIUM 10.10 mg/dLeGFR >60 mL/min/1.73 [id number] 10.0 secsINR 1.0 PTT 28.20 secs 08/28/2014 [...] CVX Influenza 06/02/2010 sanofi pasteur PMC Fluzone [id number] Intramuscular Left Deltoid 06/02/2010 02/25/2010 999 History [...] to other allergen Apr 23 2015 3:35PM Payers Insurance Name Company Name Plan Name Plan Number Policy Number Policy Group Number Start Date [facility] [id number] [place] Self [place] *INVALID [place] Self Insurance [id number] N /A History of Encounters Visit Date Visit Type Provider 04/23/2015 Nurse visit Yvonne Cassidy MD 04/18/2015 Nurse visit Nidia Darby MANGANESE HEATER 04/09/2015 Nurse visit Yvonne Cassidy MD 04/01/2015 Nurse visit Yvonne Cassidy MD 03/27/[address] Cody Horvath MD 03/19/2015 Nurse visit Yvonne Cassidy MD 03/19/2015 Office visit Nidia Darby MANGANESE HEATER 03/04/2015 Nurse visit Yvonne Cassidy MD 02/25/2015 [...] Cassidy MD 12/31/2014 Office visit Karolyn Millan MANGANESE HEATER 12/24/2014 Nurse visit Yvonne Cassidy MD 12/17/2014 Nurse visit Yvonne Cassidy MD 12/13/2014 Nurse visit Yvonne Cassidy MD 11/28/2014 Nurse visit Yvonne Cassidy MD 11/19/2014 Nurse visit Yvonne Cassidy MD 11/12/2014 Nurse visit Yvonne Cassidy MD 11/05/2014 Nurse visit Yvonne Cassidy MD 11/05/2014 [facility] Darin Park MD 10/29/2014 Nurse visit Yvonne Cassidy MD 10/24/2014 Nurse visit Yvonne Cassidy MD 10/15/2014 Nurse visit Yvonne Cassidy MD 10/11/2014 Office visit Karolyn Millan MANGANESE HEATER 10/09/2014 Nurse visit Yvonne Cassidy MD 10/04/2014 Nurse visit Yvonne Cassidy MD 09/19/2014 Surgery Karolyn Millan MANGANESE HEATER 09/13/2014 Office visit Yvonne Cassidy MD 09/06/2014 Nurse visit Yvonne Cassidy MD 08/28/2014 [facility] Chauncey Hogan MD 08/28/2014 [facility] Joe Thomas MD 08/23/2014 Nurse visit Yvonne Cassidy MD 08/22/2014 Surgery Joe Thomas MD 08/16/2014 Nurse visit Yvonne Cassidy MD 08/07/2014 Nurse visit Yvonne Cassidy MD 08/01/2014 Nurse visit Jessie Mock MANGANESE HEATER 07/25/2014 Nurse visit Nidia Darby MANGANESE HEATER 07/16/2014 Nurse visit Yvonne Cassidy MD 07/09/2014 [...] Cassidy MD 03/20/2014 Nurse visit Jessie Mock MANGANESE HEATER 03/13/2014 Nurse visit Donte Hastings MANGANESE HEATER 03/07/2014 Nurse visit Yvonne Cassidy MD 02/27/2014 Nurse visit Jessie Mock MANGANESE HEATER 02/20/2014 Nurse visit Donte Hastings MANGANESE HEATER 02/13/2014 Nurse visit Donte Hastings MANGANESE HEATER 02/13/2014 Procedures Joe Thomas MD 02/07/2014 Office visit Jeo Thomas MD 02/06/2014 Nurse visit Yvonne Cassidy MD 01/17/2014 Nurse visit Nidia Darby MANGANESE HEATER 01/10/2014 Nurse visit Yvonne Cassidy MD 01/02/2014 Nurse visit Yvonne Cassidy MD 12/26/2013 Nurse visit Yvonne Cassidy MD 12/18/2013 Nurse visit Yvonne Cassidy MD 12/12/2013 Nurse visit Yvonne Cassidy MD 12/05/2013 Nurse visit Yvonne Cassidy MD 11/28/2013 Nurse visit Yvonne Cassidy MD 11/21/2013 Nurse visit Yvonne Cassidy MD 11/14/2013 Nurse visit Yvonne Cassidy MD 11/07/2013 Nurse visit Nidia Darby MANGANESE HEATER 10/31/2013 Nurse visit Nidia Darby MANGANESE HEATER 10/25/2013 Nurse visit Nidia Darby MANGANESE HEATER 10/18/2013 Voided Nidia Darby MANGANESE HEATER 10/10/2013 Voided Yvonne Cassidy MD 10/03/2013 Nurse [...] Mart MD 04/18/2013 Nurse visit Nidia Darby MANGANESE HEATER 04/04/2013 Nurse visit Nidia Darby MANGANESE HEATER 03/28/2013 Nurse visit Nidia Darby MANGANESE HEATER 03/21/2013 Nurse visit Nidia Darby MANGANESE HEATER 03/13/2013 Nurse visit Nidia Darby MANGANESE HEATER 03/09/2013 Nurse visit Nidia Darby MANGANESE HEATER 03/02/2013 Nurse visit Nidia Darby MANGANESE HEATER 02/21/2013 Nurse visit Nidia Darby MANGANESE HEATER 02/13/2013 Office visit Nidia Darby MANGANESE HEATER 02/06/2013 Nurse visit Bria Mart MD 01/31/2013 [...] Mart MD 10/04/2012 Nurse visit Nidia Darby MANGANESE HEATER 09/27/2012 Nurse visit Bria Mart MD 09/22/2012 [...] Mart MD 06/07/2012 Nurse visit Nidia Darby MANGANESE HEATER 06/07/2012 Voided Francisco J Jesus DO 06/01/2012 [...] Mart MD 09/08/2011 Office visit Jessie Mock MANGANESE HEATER 09/01/2011 Nurse visit Bria Mart MD 08/21/2011 [...] Bria Mart MD 11/07/2009 Office visit Bria aMrt MD 05/29/2009 Office visit Marium GOLDEN
--- OUTSIDE RECORDS SUMMARY | 2017-05-06 19:30 | XMS REPORT ---
Author Author Yvonne Cassidy [facility] Address [address] [place], [place] [address] Care Team Providers Care Physician Non Invasive Cardiologist Name Role Phone Yvonne Cassidy PCP Allergies [...] Reviewed 08/21/2011 12:00 AM Depo-Medrol 40 mg [facility]#[id number] Reviewed 09/08/2011 12:00 AM IMMUNOTHERAPY INJECTIONS Reviewed [...] Reviewed 11/27/2011 12:00 AM Depo-Medrol 40 mg [facility]#[id number] Reviewed 12/01/2011 12:00 AM IMMUNOTHERAPY INJECTIONS Reviewed [...] 02/13/2013 12:00 AM Decadron, Per 1 Mg [facility]# [id number] Reviewed 02/13/2013 12:00 AM Depo-Medrol, Per 80 Mg [facility]#[id number] Reviewed 06/05/2013 12:00 AM MAMMOGRAM SCREENING Returned [...] BILI 0.50 mg/dLCALCIUM 10.10 mg/dLeGFR >60 mL/min/1.73 [id number] 10.0 secsINR 1.0 PTT 28.20 secs 08/28/2014 [...] CVX Influenza 06/02/2010 sanofi pasteur PMC Fluzone [id number] Intramuscular Left Deltoid 06/02/2010 02/25/2010 999 Influenza 05/09/2015 sanofi pasteur PMC Fluzone [id number] Intramuscular Left Deltoid 05/09/2015 02/22/2015 141 History [...] to other allergen Sep 11 2015 4:29PM Payers Insurance Name Company Name Plan Name Plan Number Policy Number Policy Group Number Start Date BCBS [facility] [id number] [place] *[place] Self Insurance [id number] N /A History of Encounters Visit Date Visit Type Provider 09/11/2015 Nurse visit Yvonne Cassidy MD 09/05/2015 [...] Office visit 05/29/2015 Office visit Karolyn Millan HAIR MIXER 05/29/2015 Nurse visit Yvonne Cassidy MD 05/14/2015 Nurse visit Francisco J Jesus DO 05/09/2015 Nurse visit Yvonne Cassidy MD 04/30/2015 Nurse visit Yvonne Cassidy MD 04/23/2015 Nurse visit Yvonne Cassidy MD 04/18/2015 Nurse visit Nidia Darby HAIR MIXER 04/09/2015 Nurse visit Yvonne Cassidy MD 04/01/2015 Nurse visit Yvonne Cassidy MD 03/27/[address] Cody Horvath MD 03/25/2015 [facility] Darin Park MD 03/19/2015 Nurse visit Yvonne Cassidy MD 03/19/2015 Office visit Nidia Darby HAIR MIXER 03/04/2015 Nurse visit Yvonne Cassidy MD 02/25/2015 [...] Office visit 12/31/2014 Office visit Karolyn Millan HAIR MIXER 12/24/2014 Nurse visit Yvonne Cassidy MD 12/17/2014 [...] Cassidy MD 10/11/2014 Office visit Karolyn Millan HAIR MIXER 10/09/2014 Nurse visit Yvonne Cassidy MD 10/04/2014 Nurse visit Yvonne Cassidy MD 09/19/2014 Surgery Karolyn Millan HAIR MIXER 09/13/2014 Office visit Yvonne Cassidy MD 09/06/2014 Nurse visit Yvonne Cassidy MD 08/28/2014 [facility] Chauncey Hogan MD 08/28/2014 [facility] Joe Thomas MD 08/23/2014 Nurse visit Yvonne Cassidy MD 08/22/2014 Surgery Joe Thomas MD 08/16/2014 Nurse visit Yvonne Cassidy MD 08/07/2014 Nurse visit Yvonne Cassidy MD 08/01/2014 Nurse visit Jessie Mock HAIR MIXER 07/25/2014 Nurse visit Nidia Darby HAIR MIXER 07/16/2014 Nurse visit Yvonne Cassidy MD 07/09/2014 [...] Cassidy MD 03/20/2014 Nurse visit Jessie Mock HAIR MIXER 03/13/2014 Nurse visit Donte Hastings HAIR MIXER 03/07/2014 Nurse visit Yvonne Cassidy MD 02/27/2014 Nurse visit Jessie Mock HAIR MIXER 02/20/2014 Nurse visit Donte Hastings HAIR MIXER 02/13/2014 Nurse visit Donte Hastings HAIR MIXER 02/13/2014 Procedures Joe Thomas MD 02/07/2014 Office visit Joe Thomas MD 02/06/2014 Nurse visit Yvonne Cassidy MD 01/17/2014 Nurse visit Nidia Darby HAIR MIXER 01/10/2014 Nurse visit Yvonne Cassidy MD 01/02/2014 Nurse visit Yvonne Cassidy MD 12/26/2013 Nurse visit Yvonne Cassidy MD 12/18/2013 Nurse visit Yvonne Cassidy MD 12/12/2013 Nurse visit Yvonne Cassidy MD 12/05/2013 Nurse visit Yvonne Cassidy MD 11/28/2013 Nurse visit Yvonne Cassidy MD 11/21/2013 Nurse visit Yvonne Cassidy MD 11/14/2013 Nurse visit Yvonne Cassidy MD 11/07/2013 Nurse visit Nidia Darby HAIR MIXER 10/31/2013 Nurse visit Nidia Darby HAIR MIXER 10/25/2013 Nurse visit Nidia Darby HAIR MIXER 10/18/2013 Voided Nidia Darby HAIR MIXER 10/10/2013 Voided Yvonne Cassidy MD 10/03/2013 Nurse [...] Mart MD 04/18/2013 Nurse visit Nidia Darby HAIR MIXER 04/04/2013 Nurse visit Nidia Darby HAIR MIXER 03/28/2013 Nurse visit Nidia Darby HAIR MIXER 03/21/2013 Nurse visit Nidia Darby HAIR MIXER 03/13/2013 Nurse visit Nidia Darby HAIR MIXER 03/09/2013 Nurse visit Nidia Darby HAIR MIXER 03/02/2013 Nurse visit Nidia Darby HAIR MIXER 02/21/2013 Nurse visit Nidia Darby HAIR MIXER 02/13/2013 Office visit Nidia Darby HAIR MIXER 02/06/2013 Nurse visit Bria Mart MD 01/31/2013 Nurse visit Bria Mart MD 01/24/2013 Nurse visit Bria Mart MD 01/17/2013 Nurse visit Bria Mart MD 01/10/2013 Nurse visit Bria Mart MD 01/02/2013 Nurse visit Bria Mart MD 12/20/2012 Nurse visit Bria Mart MD 12/14/2012 Nurse visit Bria Mart MD 12/06/2012 Nurse visit Bria Mart MD 11/29/2012 Nurse visit rBia Mart MD 11/22/2012 Nurse visit Bria Mart MD 11/15/2012 Nurse visit Bria Mart MD 11/08/2012 Nurse visit Bria Mart MD 11/01/2012 Nurse visit Bria Mart MD 10/25/2012 Nurse visit Bria Mart MD 10/18/2012 Nurse visit Bria Mart MD 10/11/2012 Nurse visit Bria Mart MD 10/04/2012 Nurse visit Nidia Darby HAIR MIXER 09/27/2012 Nurse visit Bria Mart MD 09/22/2012 [...] Mart MD 06/07/2012 Nurse visit Nidia Darby HAIR MIXER 06/07/2012 Voided Francisco J Jesus DO 06/01/2012 [...] visit Bria Mart MD 12/18/2011 Nurse visit rBia Mart MD 12/08/2011 Nurse visit Bria Mart [...] Mart MD 09/08/2011 Office visit Jessie Mock HAIR MIXER 09/01/2011 Nurse visit Bria Mart MD 08/21/2011 [...]
--- OUTSIDE RECORDS SUMMARY | 2017-05-06 19:35 | XMS REPORT ---
Author Author Yvonne Cassidy Organization [facility] Address [address] [place], [place] [address] Care Team Providers Care Formula Room Worker Name Role Phone Yvonne Cassidy PCP [...] EKG. 04/23/2016 12:00 AM Allergy Injection Multiple 11/10/2016 12:00 AM Allergy Injection Multiple 09/30/2012 12:00 [...] 08/21/2011 12:00 AM Depo-Medrol 40 mg [facility]#[id number] Reviewed 03/02/2016 12:00 AM IMMUNOTHERAPY INJECTIONS Reviewed [...] Reviewed 11/27/2011 12:00 AM Depo-Medrol 40 mg [facility]#[id number] Reviewed 12/01/2011 12:00 AM IMMUNOTHERAPY INJECTIONS Reviewed [...] Reviewed 10/28/2016 12:00 AM IMMUNOTHERAPY INJECTIONS Reviewed 01/26/2012 12:00 [...] 12:00 AM Decadron, Per 1 Mg [facility]# [address]-92 Reviewed 02/13/2013 12:00 AM Depo-Medrol, Per 80 Mg [facility]#3751-0529-32 Reviewed 06/05/2013 12:00 AM MAMMOGRAM SCREENING Reviewed [...] CVX Influenza 06/02/2010 sanofi pasteur PMC Fluzone [id number] Intramuscular Left Deltoid 06/02/2010 02/25/2010 999 Influenza 05/09/2015 [facility]ofi [place] PMC Fluzone [id number] Intramuscular Left Deltoid 05/09/2015 02/22/2015 141 Pneumococcal 06/29/2016 [facility] Prevnar 13 [id number] Intramuscular Right Deltoid 06/29/2016 09/14/2012 133 Zostavax [...] to other allergen Nov 10 2016 4:37PM Payers Insurance Name Company Name Plan Name Plan Number Policy Number Policy Group Number Start Date BCBS [facility] [id number] June [facility] Self Insurance Fund *INVALID [facility] Self Insurance [id number] N/A Comp Sasser Comp Sasser [id number] Wednesday, 2015 History of Encounters Visit Date Visit Type Provider 11/10/2016 Nurse visit Yvonne Cassidy MD 11/02/2016 Nurse visit Donte Hastings FILM NUMBERER 10/28/2016 Nurse visit Yvonne Cassidy MD 10/06/2016 [...] Cassidy MD 07/14/2016 Nurse visit Donte Hastings FILM NUMBERER 07/06/2016 Nurse visit Yvonne Cassidy MD 06/29/2016 Nurse visit Yvonne Cassidy MD 06/24/2016 Nurse visit Yvonne Cassidy MD 06/16/2016 Office visit Yvonne Cassidy MD 06/14/2016 [facility] Alexander Park MD 06/09/2016 Nurse visit Yvonne Cassidy MD 06/02/2016 Office visit 06/02/2016 Office visit Karolyn Millan FILM NUMBERER 06/01/2016 Nurse visit Yvonne Cassidy MD 05/27/2016 Nurse visit Yvonne Cassidy MD 05/11/2016 Nurse visit Yvonne Cassidy MD 05/05/2016 Nurse visit Yvonne Cassidy MD 04/29/2016 Nurse visit Yvonne Cassidy MD 04/23/2016 Office visit Jessie Mokc FILM NUMBERER 04/13/2016 Nurse visit Yvonne Cassidy MD 04/07/2016 Nurse visit Yvonne Cassidy MD 04/01/2016 Office visit Jessie Mock FILM NUMBERER 03/26/2016 Nurse visit Yvonne Cassidy MD 03/17/2016 Nurse visit Yvonne Cassidy MD 03/11/2016 Nurse visit Yvonne Cassidy MD 03/04/2016 Office visit Jessie Mock FILM NUMBERER 03/02/2016 Nurse visit Yvonne Cassidy MD 02/19/2016 Nurse visit Yvonne Cassidy MD 02/12/2016 Office visit Jessie Mock FILM NUMBERER 02/03/2016 Nurse visit Yvonne Cassidy MD 01/27/2016 Nurse visit Yvonne Cassidy MD 01/15/2016 Nurse visit Yvonne Cassidy MD 01/08/2016 Office visit Jessie Mock FILM NUMBERER 12/25/2015 Nurse visit Yvonne Cassidy MD 12/09/2015 Nurse visit Yvonne Cassidy MD 12/02/2015 Nurse visit Yvonne Cassidy MD 11/29/2015 Nurse visit Donet Hastings FILM NUMBERER 11/28/2015 Nurse visit Jessie Mock FILM NUMBERER 11/27/2015 Office visit Jessie Mock FILM NUMBERER 11/25/2015 Office visit Donte Hastings FILM NUMBERER 11/18/2015 Nurse visit Donte Hastings FILM NUMBERER 11/11/2015 Nurse visit Jessie Mock FILM NUMBERER 11/04/2015 Nurse visit Donte Hastings FILM NUMBERER 10/29/2015 Office visit Jessie Mock FILM NUMBERER 10/28/2015 Nurse visit Jessie Mock FILM NUMBERER 10/21/2015 Nurse visit Glenn Tejeda MD 10/15/2015 Nurse visit Francisco J Jesus DO 10/09/2015 Nurse visit Glenn Tejeda MD 10/02/2015 Office visit April Atkinson FILM NUMBERER 10/01/2015 Nurse visit Jessie Mock FILM NUMBERER 09/11/2015 Nurse visit Yvonne Cassidy MD 09/05/2015 [...] Office visit 05/29/2015 Office visit Karolyn Millan FILM NUMBERER 05/29/2015 Nurse visit Yvonne Cassidy MD 05/14/2015 Nurse visit Francisco J Jesus DO 05/09/2015 Nurse visit Yvonne Cassidy MD 04/30/2015 Nurse visit Yvonne Cassidy MD 04/23/2015 Nurse visit Yvonne Cassidy MD 04/18/2015 Nurse visit Nidia Darby FILM NUMBERER 04/09/2015 Nurse visit Yvonne Cassidy MD 04/01/2015 Nurse visit Yvonne Cassidy MD 03/27/[address] Cody Horvath MD 03/25/2015 [facility] Alexander Park MD 03/19/2015 Nurse visit Yvonne Cassidy MD 03/19/2015 Office visit Nidia Darby FILM NUMBERER 03/04/2015 Nurse visit Yvonne Cassidy MD 02/25/2015 [...] Office visit 12/31/2014 Office visit Karolyn Millan FILM NUMBERER 12/24/2014 Nurse visit Yvonne Cassidy MD 12/17/2014 [...] Cassidy MD 10/11/2014 Office visit Karolyn Millan FILM NUMBERER 10/09/2014 Nurse visit Yvonne Cassidy MD 10/04/2014 Nurse visit Yvonne Cassidy MD 09/19/2014 Surgery Karolyn Millan FILM NUMBERER 09/13/2014 Office visit Yvonne Cassidy MD 09/06/2014 Nurse visit Yvonne Cassidy MD 08/28/2014 Hospital Chauncey Hogan MD 08/28/2014 [facility] Joe Thomas MD 08/23/2014 Nurse visit Yvonne Cassidy MD 08/22/2014 Surgery Joe Thomas MD 08/16/2014 Nurse visit Yvonne Cassidy MD 08/07/2014 Nurse visit Yvonne Cassidy MD 08/01/2014 Nurse visit Jessie Mock FILM NUMBERER 07/25/2014 Nurse visit Nidia Darby FILM NUMBERER 07/16/2014 Nurse visit Yvonne Cassidy MD 07/09/2014 [...] Cassidy MD 03/20/2014 Nurse visit Jessie Mock FILM NUMBERER 03/13/2014 Nurse visit Donte Hastings FILM NUMBERER 03/07/2014 Nurse visit Yvonne Cassidy MD 02/27/2014 Nurse visit Jessie Mock FILM NUMBERER 02/20/2014 Nurse visit Donte Hastings FILM NUMBERER 02/13/2014 Nurse visit Donte Hastings FILM NUMBERER 02/13/2014 Procedures Joe Thomas MD 02/07/2014 Office visit Joe Thomas MD 02/06/2014 Nurse visit Yvonne Cassidy MD 01/17/2014 Nurse visit Nidia Darby FILM NUMBERER 01/10/2014 Nurse visit Yvonne Cassidy MD 01/02/2014 Nurse visit Yvonne Cassidy MD 12/26/2013 Nurse visit Yvonne Cassidy MD 12/18/2013 Nurse visit Yvonne Cassidy MD 12/12/2013 Nurse visit Yvonne Cassidy MD 12/05/2013 Nurse visit Yvonne Cassidy MD 11/28/2013 Nurse visit Yvonne Cassidy MD 11/21/2013 Nurse visit Yvonne Cassidy MD 11/14/2013 Nurse visit Yvonne Cassidy MD 11/07/2013 Nurse visit Nidia Darby FILM NUMBERER 10/31/2013 Nurse visit Nidia Darby FILM NUMBERER 10/25/2013 Nurse visit Nidia Darby FILM NUMBERER 10/18/2013 Voided Nidia Darby FILM NUMBERER 10/10/2013 Voided Yvonne Cassidy MD 10/03/2013 Nurse [...] Mart MD 04/18/2013 Nurse visit Nidia Darby FILM NUMBERER 04/04/2013 Nurse visit Nidia Darby FILM NUMBERER 03/28/2013 Nurse visit Nidia Darby FILM NUMBERER 03/21/2013 Nurse visit Nidia Darby FILM NUMBERER 03/13/2013 Nurse visit Nidia Darby FILM NUMBERER 03/09/2013 Nurse visit Nidia Darby FILM NUMBERER 03/02/2013 Nurse visit Nidia Darby FILM NUMBERER 02/21/2013 Nurse visit Nidia Darby FILM NUMBERER 02/13/2013 Office visit Nidia Darby FILM NUMBERER 02/06/2013 Nurse visit Bria Mart MD 01/31/2013 [...] Mart MD 10/04/2012 Nurse visit Nidia Darby FILM NUMBERER 09/27/2012 Nurse visit Bria Mart MD 09/22/2012 [...] MD 06/07/2012 Nurse visit Nidia Sheridan Darby FILM NUMBERER 06/07/2012 Voided Francisco J Jesus DO 06/01/2012 [...] Bria Mart MD 02/15/2012 Nurse visit Bria Matr MD 02/08/2012 Nurse visit Bria Mart MD [...] Mart MD 09/08/2011 Office visit Jessie Mock FILM NUMBERER 09/01/2011 Nurse visit Bria Mart MD 08/21/2011 [...]
--- OUTSIDE RECORDS SUMMARY | 2017-05-06 19:38 | XMS REPORT ---
Author Author Yvonne Cassidy Organization [facility] Address [address] [place], [place] [id number] Care Team Providers Care Director Of Online Merchandising Name Role Phone Yvonne Cassidy PCP Allergies and Adverse Reactions Name Reaction Notes Ceftin rash Erythromycin rash PENICILLINS rash Plan of Treatment Planned Activity Comments Planned Date Planned Time Plan/Goal MAMMOGRAM BOTH BREASTS 12/31/2014 12:00 AM Breast ultrasonography 12/31/2014 12:00 AM Breast ultrasound 12/31/2014 12:00 AM COMPUTER DX MAMMOGRAM ADD-ON [...] BILI 0.50 mg/dLCALCIUM 10.10 mg/dLeGFR >60 mL/min/1.73 [id number] 10.0 secsINR 1.0 PTT 28.20 secs 08/28/2014 [...] Vis Given Vis [id number] Intramuscular Left Deltoid 06/02/2010 02/25/2010 999 History [...] to other allergen Jan 07 2015 3:33PM Payers Insurance Name Company Name Plan Name Plan Number Policy Number Policy Group Number Start Date [employer] [place] [id number] [place] *INVALID [place] Self Insurance [id number] N /A History of Encounters Visit Date Visit Type Provider 01/07/2015 Nurse visit Yvonne Cassidy MD 12/31/2014 Office visit Karolyn Millan EXECUTIVE MEETING MANAGER 12/31/2014 Nurse visit Yvonne Cassidy MD 12/24/2014 [...] Cassidy MD 10/11/2014 Office visit Karolyn Millan EXECUTIVE MEETING MANAGER 10/09/2014 Nurse visit Yvonne Cassidy MD 10/04/2014 Nurse visit Yvonne Cassidy MD 09/19/2014 Surgery Karolyn Millan EXECUTIVE MEETING MANAGER 09/13/2014 Office visit Yvonne Cassidy MD 09/06/2014 Nurse visit Yvonne Cassidy MD 08/28/2014 [facility] Joe Thomas MD 08/28/2014 [facility] Chauncey Hogan MD 08/23/2014 Nurse visit Yvonne Cassidy MD 08/22/2014 Surgery Joe Thomas MD 08/16/2014 Nurse visit Yvonne Cassidy MD 08/07/2014 Nurse visit Yvonne Cassidy MD 08/01/2014 Nurse visit Jessie Mock EXECUTIVE MEETING MANAGER 07/25/2014 Nurse visit Nidia Darby EXECUTIVE MEETING MANAGER 07/16/2014 Nurse visit Yvonne Cassidy MD [...] Cassidy MD 03/20/2014 Nurse visit Jessie Mock EXECUTIVE MEETING MANAGER 03/13/2014 Nurse visit Donte Hastings EXECUTIVE MEETING MANAGER 03/07/2014 Nurse visit Yvonne Cassidy MD 02/27/2014 Nurse visit Jessie Mock EXECUTIVE MEETING MANAGER 02/20/2014 Nurse visit Donte Hastings EXECUTIVE MEETING MANAGER 02/13/2014 Procedures Joe Thomas MD 02/13/2014 Nurse visit Donte Hastings EXECUTIVE MEETING MANAGER 02/07/2014 Office visit Joe Thomas MD 02/06/2014 Nurse visit Yvonne Cassidy MD 01/17/2014 Nurse visit Nidia Darby EXECUTIVE MEETING MANAGER 01/10/2014 Nurse visit Yvonne Cassidy MD 01/02/2014 Nurse visit Yvonne Cassidy MD 12/26/2013 Nurse visit Yvonne Cassidy MD 12/18/2013 Nurse visit Yvonne Cassidy MD 12/12/2013 Nurse visit Yvonne Cassidy MD 12/05/2013 Nurse visit Yvonne Cassidy MD 11/28/2013 Nurse visit Yvonne Cassidy MD 11/21/2013 Nurse visit Yvonne Cassidy MD 11/14/2013 Nurse visit Yvonne Cassidy MD 11/07/2013 Nurse visit Nidia Darby EXECUTIVE MEETING MANAGER 10/31/2013 Nurse visit Nidia Darby EXECUTIVE MEETING MANAGER 10/25/2013 Nurse visit Nidia Darby EXECUTIVE MEETING MANAGER 10/18/2013 Voided Nidia Darby EXECUTIVE MEETING MANAGER 10/10/2013 Voided Yvonne Cassidy MD 10/03/2013 [...] Bira Mart MD 05/01/2013 Nurse visit Bria Mrat MD 04/18/2013 Nurse visit Nidia Darby EXECUTIVE MEETING MANAGER 04/04/2013 Nurse visit Nidia Darby EXECUTIVE MEETING MANAGER 03/28/2013 Nurse visit Nidia Draby EXECUTIVE MEETING MANAGER 03/21/2013 Nurse visit Nidia Darby EXECUTIVE MEETING MANAGER 03/13/2013 Nurse visit Nidia Darby EXECUTIVE MEETING MANAGER 03/09/2013 Nurse visit Nidia Darby EXECUTIVE MEETING MANAGER 03/02/2013 Nurse visit Nidia Darby EXECUTIVE MEETING MANAGER 02/21/2013 Nurse visit Nidia Darby EXECUTIVE MEETING MANAGER 02/13/2013 Office visit Nidia Darby EXECUTIVE MEETING MANAGER 02/06/2013 Nurse visit Bria Mart MD [...] Mart MD 10/04/2012 Nurse visit Nidia Darby EXECUTIVE MEETING MANAGER 09/27/2012 Nurse visit Bria Mart MD [...] Jesus DO 06/07/2012 Nurse visit Nidia Darby EXECUTIVE MEETING MANAGER 06/01/2012 Office visit Bria Mart MD 05/24/2012 [...] MD 09/08/2011 Office visit Jessie Mock APRN 09/08/2011 Nurse visit Bria Mart MD 09/01/2011 [...]
--- OUTSIDE RECORDS SUMMARY | 2017-05-06 19:42 | XMS REPORT ---
Author Author April Atkinson Organization [facility] Address [address] [place], [place] [id number] Care Team Providers Care Motion Picture Projectionist Name Role Phone April Atkinson PCP Unavailable Allergies and Adverse Reactions Name [...] TAKE 1 TABLET BY MOUTH ONCE DAILY promethazine-codeine 6.25-10 mg/5 mL oral syrup 10/02/2015 10/07/2015 take 5 milliliters by oral route every 6 hours as needed, not to exceed 30 mL in 24 hours for 5 days cyclobenzaprine 10 mg oral tablet 10/02/2015 10/07/2015 take 1 tablet by oral route 3 times a day as needed for 5 days Name Start Date Expiration Date SIG [...] Reviewed 08/21/2011 12:00 AM Depo-Medrol 40 mg NDC#[id number] Reviewed 09/08/2011 12:00 AM IMMUNOTHERAPY INJECTIONS Reviewed [...] Reviewed 11/27/2011 12:00 AM Depo-Medrol 40 mg NDC#[id number] Reviewed 12/01/2011 12:00 AM IMMUNOTHERAPY INJECTIONS Reviewed [...] Decadron, Per [address] [facility]# [address]-17 Reviewed 02/13/2013 12:00 AM Depo-Medrol, Per [address] [facility]#[id number] Reviewed 06/05/2013 12:00 AM MAMMOGRAM SCREENING Returned [...] BILI 0.50 mg/dLCALCIUM 10.10 mg/dLeGFR >60 mL/min/1.73 [id number] 10.0 secsINR 1.0 PTT 28.20 secs 08/28/2014 [...] CVX Influenza 06/02/2010 sanofi pasteur PMC Fluzone [id number] Intramuscular Left Deltoid 06/02/2010 02/25/2010 999 Influenza 05/09/2015 sanofi pasteur PMC Fluzone [id number] Intramuscular Left Deltoid 05/09/2015 02/22/2015 141 History [...] spasm of back Oct 02 2015 3:30PM Payers Insurance Name Company Name Plan Name Plan Number Policy Number Policy Group Number Start Date [facility] [id number] June [facility] Self Insurance Fund *INVALID State Self Insurance [id number] N/A History of Encounters Visit Date Visit Type Provider 10/02/2015 Office visit April Atkinson ALTERATION TAILOR APPRENTICE 10/01/2015 Nurse visit Jessie Mock ALTERATION TAILOR APPRENTICE 09/11/2015 Nurse visit Yvonne Cassidy MD 09/05/2015 [...] Office visit 05/29/2015 Office visit Karolyn Millan ALTERATION TAILOR APPRENTICE 05/29/2015 Nurse visit Yvonne Cassidy MD 05/14/2015 Nurse visit Francisco J Jesus DO 05/09/2015 Nurse visit Yvonne Cassidy MD 04/30/2015 Nurse visit Yvonne Cassidy MD 04/23/2015 Nurse visit Yvonne Cassidy MD 04/18/2015 Nurse visit Nidia Darby ALTERATION TAILOR APPRENTICE 04/09/2015 Nurse visit Yvonne Cassidy MD 04/01/2015 Nurse visit Yvonne Cassidy MD 03/27/[address] Cody Horvath MD 03/25/2015 [facility] Alexander Park MD 03/19/2015 Nurse visit Yvonne Cassidy MD 03/19/2015 Office visit Nidia Darby ALTERATION TAILOR APPRENTICE 03/04/2015 Nurse visit Yvonne Cassidy MD 02/25/2015 Nurse visit Yvonne Cassidy MD 02/18/2015 Nurse visit Yvonne Cassidy MD 02/11/2015 Nurse visit Yvonne Cassidy MD 02/04/2015 Nurse visit Yvonne Cassidy MD 01/28/2015 Nurse visit Yvonne Cassidy MD 01/21/2015 Nurse visit Yvonne Cassidy MD 01/15/2015 Nurse visit Yvonne Cassidy MD 01/07/2015 Nurse visit Yvonne Cassidy MD 12/31/2014 Nurse visit Yvonen Cassidy MD 12/31/2014 Office visit 12/31/2014 Office visit 12/31/2014 Office visit Karolyn Millan ALTERATION TAILOR APPRENTICE 12/24/2014 Nurse visit Yvonne Cassidy MD 12/17/2014 Nurse visit Yvonne Cassidy MD 12/13/2014 Nurse visit Yvonne Cassidy MD 11/28/2014 Nurse visit Yvonne Cassidy MD 11/19/2014 Nurse visit Yvonne Cassidy MD 11/12/2014 Nurse visit Yvonne Cassidy MD 11/05/2014 Nurse visit Yvonne Cassidy MD 11/05/2014 [facility] Darin Park MD 10/29/2014 Nurse visit Yvonne Cassidy MD 10/24/2014 Nurse visit Yvonne Cassidy MD 10/15/2014 Nurse visit Yvonne Cassidy MD 10/11/2014 Office visit Karolyn Millan ALTERATION TAILOR APPRENTICE 10/09/2014 Nurse visit Yvonne Cassidy MD 10/04/2014 Nurse visit Yvonne Cassidy MD 09/19/2014 Surgery Karolyn Millan ALTERATION TAILOR APPRENTICE 09/13/2014 Office visit Yvonne Cassidy MD 09/06/2014 Nurse visit Yvonne Cassidy MD 08/28/2014 [facility] Chauncey Hogan MD 08/28/2014 [facility] Joe Thomas MD 08/23/2014 Nurse visit Yvonne Cassidy MD 08/22/2014 Surgery Jeo Thomas MD 08/16/2014 Nurse visit Yvonne Cassidy MD 08/07/2014 Nurse visit Yvonne Cassidy MD 08/01/2014 Nurse visit Jessie Mock ALTERATION TAILOR APPRENTICE 07/25/2014 Nurse visit Nidia Darby ALTERATION TAILOR APPRENTICE 07/16/2014 Nurse visit Yvonne Cassidy MD 07/09/2014 [...] Cassidy MD 03/20/2014 Nurse visit Jessie Mock ALTERATION TAILOR APPRENTICE 03/13/2014 Nurse visit Donte Hastings ALTERATION TAILOR APPRENTICE 03/07/2014 Nurse visit Yvonne Cassidy MD 02/27/2014 Nurse visit Jessie Mock ALTERATION TAILOR APPRENTICE 02/20/2014 Nurse visit Donte Hastings ALTERATION TAILOR APPRENTICE 02/13/2014 Nurse visit Donte Hastings ALTERATION TAILOR APPRENTICE 02/13/2014 Procedures Joe Thomas MD 02/07/2014 Office visit Joe Thomas MD 02/06/2014 Nurse visit Yvonne Cassidy MD 01/17/2014 Nurse visit Nidia Darby ALTERATION TAILOR APPRENTICE 01/10/2014 Nurse visit Yvonne Cassidy MD 01/02/2014 Nurse visit Yvonne Cassidy MD 12/26/2013 Nurse visit Yvonne Cassidy MD 12/18/2013 Nurse visit Yvonne Cassidy MD 12/12/2013 Nurse visit Yvonne Cassidy MD 12/05/2013 Nurse visit Yvonne Cassidy MD 11/28/2013 Nurse visit Yvonne Cassidy MD 11/21/2013 Nurse visit Yvonne Cassidy MD 11/14/2013 Nurse visit Yvonne Cassidy MD 11/07/2013 Nurse visit Nidia Darby ALTERATION TAILOR APPRENTICE 10/31/2013 Nurse visit Nidia Darby ALTERATION TAILOR APPRENTICE 10/25/2013 Nurse visit Nidia Darby ALTERATION TAILOR APPRENTICE 10/18/2013 Voided Nidia Darby ALTERATION TAILOR APPRENTICE 10/10/2013 Voided Yvonne Cassidy MD 10/03/2013 Nurse [...] Mart MD 04/18/2013 Nurse visit Nidia Darby ALTERATION TAILOR APPRENTICE 04/04/2013 Nurse visit Nidia Darby ALTERATION TAILOR APPRENTICE 03/28/2013 Nurse visit Nidia Darby ALTERATION TAILOR APPRENTICE 03/21/2013 Nurse visit Nidia Darby ALTERATION TAILOR APPRENTICE 03/13/2013 Nurse visit Nidia Darby ALTERATION TAILOR APPRENTICE 03/09/2013 Nurse visit Nidia Darby ALTERATION TAILOR APPRENTICE 03/02/2013 Nurse visit Nidia Darby ALTERATION TAILOR APPRENTICE 02/21/2013 Nurse visit Nidia Darby ALTERATION TAILOR APPRENTICE 02/13/2013 Office visit Nidia Darby ALTERATION TAILOR APPRENTICE 02/06/2013 Nurse visit Bria Mart MD 01/31/2013 [...] Mart MD 10/04/2012 Nurse visit Nidia Darby ALTERATION TAILOR APPRENTICE 09/27/2012 Nurse visit Bria Mart MD 09/22/2012 [...] Mart MD 06/07/2012 Nurse visit Nidia Darby ALTERATION TAILOR APPRENTICE 06/07/2012 Voided Francisco J Jesus DO 06/01/2012 [...] Mart MD 09/08/2011 Office visit Jessie Mock ALTERATION TAILOR APPRENTICE 09/01/2011 Nurse visit Bria Mart MD 08/21/2011 [...]
--- OUTSIDE RECORDS SUMMARY | 2017-05-06 19:45 | XMS REPORT ---
Author Author Yvonne Cassidy Organization [facility] Address [address] [place], [place] [id number] Care Team Providers Care Participant Administrator Name Role Phone Yvonne Cassidy PCP [...] BILI 0.50 mg/dLCALCIUM 10.10 mg/dLeGFR >60 mL/min/1.73 [id number] 10.0 secsINR 1.0 PTT 28.20 secs 08/28/2014 [...] CVX Influenza 06/02/2010 sanofi pasteur PMC Fluzone [id number] Intramuscular Left Deltoid 06/02/2010 02/25/2010 999 History [...] to other allergen Dec 24 2014 4:31PM Payers Insurance Name Company Name Plan Name Plan Number Policy Number Policy Group Number Start Date [facility] [id number] [place] *INVALID [place] Self Insurance [id number] N /A History of Encounters Visit Date Visit Type Provider 12/24/2014 Nurse visit Yvonne Cassidy MD 12/17/2014 [...] Cassidy MD 10/11/2014 Office visit Karolyn Millan NUCLEAR MEDICINE PET CT TECHNOLOGIST 10/09/2014 Nurse visit Yvonne Cassidy MD 10/04/2014 Nurse visit Yvonne Cassidy MD 09/19/2014 Surgery Karolyn Milaln NUCLEAR MEDICINE PET CT TECHNOLOGIST 09/13/2014 Office visit Yvonne Cassidy MD 09/06/2014 Nurse visit Yvonne Cassidy MD 08/28/2014 Hospital Joe Thomas MD 08/28/2014 Hospital Chauncey Hogan MD 08/23/2014 Nurse visit Yvonne Cassidy MD 08/22/2014 Surgery Joe Thomas MD 08/16/2014 Nurse visit Yvonne Cassidy MD 08/07/2014 Nurse visit Yvonne Cassidy MD 08/01/2014 Nurse visit Jessie Mock NUCLEAR MEDICINE PET CT TECHNOLOGIST 07/25/2014 Nurse visit Nidia Darby NUCLEAR MEDICINE PET CT TECHNOLOGIST 07/16/2014 Nurse visit Yvonne Cassidy MD [...] Cassidy MD 03/20/2014 Nurse visit Jessie Mock NUCLEAR MEDICINE PET CT TECHNOLOGIST 03/13/2014 Nurse visit Donte Hastings NUCLEAR MEDICINE PET CT TECHNOLOGIST 03/07/2014 Nurse visit Yvonne Cassidy MD 02/27/2014 Nurse visit Jessie Mock NUCLEAR MEDICINE PET CT TECHNOLOGIST 02/20/2014 Nurse visit Donte Hastings NUCLEAR MEDICINE PET CT TECHNOLOGIST 02/13/2014 Procedures Joe Thomas MD 02/13/2014 Nurse visit Donte Hastings NUCLEAR MEDICINE PET CT TECHNOLOGIST 02/07/2014 Office visit Joe Thomas MD 02/06/2014 Nurse visit Yvonne Cassidy MD 01/17/2014 Nurse visit Nidia Darby NUCLEAR MEDICINE PET CT TECHNOLOGIST 01/10/2014 Nurse visit Yvonne Cassidy MD 01/02/2014 Nurse visit Yvonne Cassidy MD 12/26/2013 Nurse visit Yvonne Cassidy MD 12/18/2013 Nurse visit Yvonne Cassidy MD 12/12/2013 Nurse visit Yvonne Cassidy MD 12/05/2013 Nurse visit Yvonne Cassidy MD 11/28/2013 Nurse visit Yvonne Cassidy MD 11/21/2013 Nurse visit Yvonne Cassidy MD 11/14/2013 Nurse visit Yvonne Cassidy MD 11/07/2013 Nurse visit Nidia Darby NUCLEAR MEDICINE PET CT TECHNOLOGIST 10/31/2013 Nurse visit Nidia Darby NUCLEAR MEDICINE PET CT TECHNOLOGIST 10/25/2013 Nurse visit Nidia Darby NUCLEAR MEDICINE PET CT TECHNOLOGIST 10/18/2013 Voided Nidia Darby NUCLEAR MEDICINE PET CT TECHNOLOGIST 10/10/2013 Voided Yvonne Cassidy MD 10/03/2013 [...] Mart MD 04/18/2013 Nurse visit Nidia Darby NUCLEAR MEDICINE PET CT TECHNOLOGIST 04/04/2013 Nurse visit Nidia Darby NUCLEAR MEDICINE PET CT TECHNOLOGIST 03/28/2013 Nurse visit Nidia Darby NUCLEAR MEDICINE PET CT TECHNOLOGIST 03/21/2013 Nurse visit Nidia Darby NUCLEAR MEDICINE PET CT TECHNOLOGIST 03/13/2013 Nurse visit Nidia Darby NUCLEAR MEDICINE PET CT TECHNOLOGIST 03/09/2013 Nurse visit Nidia Darby NUCLEAR MEDICINE PET CT TECHNOLOGIST 03/02/2013 Nurse visit Nidia Darby NUCLEAR MEDICINE PET CT TECHNOLOGIST 02/21/2013 Nurse visit Nidia Darby NUCLEAR MEDICINE PET CT TECHNOLOGIST 02/13/2013 Office visit Nidia Darby NUCLEAR MEDICINE PET CT TECHNOLOGIST 02/06/2013 Nurse visit Bria Mart MD [...] Mart MD 10/04/2012 Nurse visit Nidia Darby NUCLEAR MEDICINE PET CT TECHNOLOGIST 09/27/2012 Nurse visit Bria Mart MD [...] Jesus DO 06/07/2012 Nurse visit Nidia Darby NUCLEAR MEDICINE PET CT TECHNOLOGIST 06/01/2012 Office visit Bria Mart MD 05/24/2012 [...] Mart MD 09/08/2011 Office visit Jessie Nish NUCLEAR MEDICINE PET CT TECHNOLOGIST 09/08/2011 Nurse visit Bria Mart MD [...]
--- OUTSIDE RECORDS SUMMARY | 2017-05-06 19:49 | XMS REPORT ---
Author Author Yvonne Cassidy Organization [facility] Address [address] [place], [place] [address] Care Team Providers Care Autism Teacher Name Role Phone Yvonne Cassidy PCP [...] [address] [facility]#[id number] Reviewed 03/02/2016 12:00 AM IMMUNOTHERAPY INJECTIONS Reviewed [...] [address] [facility]#[id number] Reviewed 12/01/2011 12:00 AM IMMUNOTHERAPY INJECTIONS Reviewed [...] Mg [facility]# [address]-71 Reviewed 02/13/2013 12:00 AM Depo-Medrol, Per [address] [facility]#[id number] Reviewed 06/05/2013 12:00 AM MAMMOGRAM SCREENING Reviewed [...] CVX Influenza 06/02/2010 sanofi pasteur PMC Fluzone [id number] Intramuscular Left Deltoid 06/02/2010 02/25/2010 999 Influenza 05/09/2015 [facility]C Fluzone [id number] Intramuscular Left Deltoid 05/09/2015 02/22/2015 141 Pneumococcal 06/29/2016 Yoko Mossnar 13 [id number] Intramuscular Right Deltoid 06/29/2016 09/14/2012 133 Zostavax [...] to other allergen Oct 28 2016 4:13PM Payers Insurance Name Company Name Plan Name Plan Number Policy Number Policy Group Number Start Date [facility] [id number] June [facility] Self Insurance Fund *INVALID State Self Insurance [id number] N/A [place] [id number] Wednesday, 2015 History of Encounters Visit Date Visit Type Provider 10/28/2016 Nurse visit Yvonne Cassidy MD 10/06/2016 [...] Cassidy MD 07/14/2016 Nurse visit Donte Hastings CIVIL DRAFTER 07/06/2016 Nurse visit Yvonne Cassidy MD 06/29/2016 Nurse visit Yvonne Cassidy MD 06/24/2016 Nurse visit Yvonne Cassidy MD 06/16/2016 Office visit Yvonne Cassidy MD 06/14/2016 [facility] Darin Park MD 06/09/2016 Nurse visit Yvonne Cassidy MD 06/02/2016 Office visit 06/02/2016 Office visit Karolyn Millan CIVIL DRAFTER 06/01/2016 Nurse visit Yvonne Cassidy MD 05/27/2016 Nurse visit Yvonne Cassidy MD 05/11/2016 Nurse visit Yvonne Cassidy MD 05/05/2016 Nurse visit Yvonne Cassidy MD 04/29/2016 Nurse visit Yvonne Cassidy MD 04/23/2016 Office visit Jessie Mock CIVIL DRAFTER 04/13/2016 Nurse visit Yvonne Cassidy MD 04/07/2016 Nurse visit Yvonne Cassidy MD 04/01/2016 Office visit Jessie Mock CIVIL DRAFTER 03/26/2016 Nurse visit Yvonne Cassidy MD 03/17/2016 Nurse visit Yvonne Cassidy MD 03/11/2016 Nurse visit Yvonne Cassidy MD 03/04/2016 Office visit Jessie Mock CIVIL DRAFTER 03/02/2016 Nurse visit Yvonne Cassidy MD 02/19/2016 Nurse visit Yvonne Cassidy MD 02/12/2016 Office visit Jessie Mock CIVIL DRAFTER 02/03/2016 Nurse visit Yvonne Cassidy MD 01/27/2016 Nurse visit Yvonne Cassidy MD 01/15/2016 Nurse visit Yvonne Cassidy MD 01/08/2016 Office visit Jessie Mock CIVIL DRAFTER 12/25/2015 Nurse visit Yvonne Cassidy MD 12/09/2015 Nurse visit Yvonne Cassidy MD 12/02/2015 Nurse visit Yvonne Cassidy MD 11/29/2015 Nurse visit Donte Hastings CIVIL DRAFTER 11/28/2015 Nurse visit Jessie Mock CIVIL DRAFTER 11/27/2015 Office visit Jessie Nish CIVIL DRAFTER 11/25/2015 Office visit Donte Hastings CIVIL DRAFTER 11/18/2015 Nurse visit Donte Hastings CIVIL DRAFTER 11/11/2015 Nurse visit Jessie Mock CIVIL DRAFTER 11/04/2015 Nurse visit Donte Hastings CIVIL DRAFTER 10/29/2015 Office visit Jessie Mock CIVIL DRAFTER 10/28/2015 Nurse visit Jessie Mock CIVIL DRAFTER 10/21/2015 Nurse visit Glenn Tejeda MD 10/15/2015 Nurse visit Francisco J Jesus DO 10/09/2015 Nurse visit Glenn Tejeda MD 10/02/2015 Office visit April Atkinson CIVIL DRAFTER 10/01/2015 Nurse visit Jessie Mock CIVIL DRAFTER 09/11/2015 Nurse visit Yvonne Cassidy MD 09/05/2015 [...] Office visit 05/29/2015 Office visit Karolyn Millan CIVIL DRAFTER 05/29/2015 Nurse visit Yvonne Cassidy MD 05/14/2015 Nurse visit Francisco J Jesus DO 05/09/2015 Nurse visit Yvonne Cassidy MD 04/30/2015 Nurse visit Yvonne Cassidy MD 04/23/2015 Nurse visit Yvonne Cassidy MD 04/18/2015 Nurse visit Nidia Darby CIVIL DRAFTER 04/09/2015 Nurse visit Yvonne Cassidy MD 04/01/2015 Nurse visit Yvonne Cassidy MD 03/27/[address] Cody Horvath MD 03/25/2015 [facility] Alexander Park MD 03/19/2015 Nurse visit Yvonne Cassidy MD 03/19/2015 Office visit Nidia Darby CIVIL DRAFTER 03/04/2015 Nurse visit Yvonne Cassidy MD 02/25/2015 [...] Office visit 12/31/2014 Office visit Karolyn Millan CIVIL DRAFTER 12/24/2014 Nurse visit Yvonne Cassidy MD 12/17/2014 Nurse visit Yvonne Cassidy MD 12/13/2014 Nurse visit Yvonne Cassidy MD 11/28/2014 Nurse visit Yvonne Cassidy MD 11/19/2014 Nurse visit Yvonne Cassidy MD 11/12/2014 Nurse visit Yvonne Cassidy MD 11/05/2014 Nurse visit Yvonne Cassidy MD 11/05/2014 [facility] Alexander Park MD 10/29/2014 Nurse visit Yvonne Cassidy MD 10/24/2014 Nurse visit Yvonne Cassidy MD 10/15/2014 Nurse visit Yvonne Cassidy MD 10/11/2014 Office visit Karolyn Millan CIVIL DRAFTER 10/09/2014 Nurse visit Yvonne Cassidy MD 10/04/2014 Nurse visit Yvonne Cassidy MD 09/19/2014 Surgery Karolyn NiteshZafar Millan CIVIL DRAFTER 09/13/2014 Office visit Yvonne Cassidy MD 09/06/2014 Nurse visit Yvonne Cassidy MD 08/28/2014 Hospital Chauncey Hogan MD 08/28/2014 [facility] Joe Thomas MD 08/23/2014 Nurse visit Yvonne Cassidy MD 08/22/2014 Surgery Joe Thomas MD 08/16/2014 Nurse visit Yvonne Cassidy MD 08/07/2014 Nurse visit Yvonne Cassidy MD 08/01/2014 Nurse visit Jessie Mock CIVIL DRAFTER 07/25/2014 Nurse visit Nidia Darby CIVIL DRAFTER 07/16/2014 Nurse visit Yvonne Cassidy MD 07/09/2014 [...] Cassidy MD 03/20/2014 Nurse visit Jessie Mock CIVIL DRAFTER 03/13/2014 Nurse visit Donte Hastings CIVIL DRAFTER 03/07/2014 Nurse visit Yvonne Cassidy MD 02/27/2014 Nurse visit Jessie Mock CIVIL DRAFTER 02/20/2014 Nurse visit Donte Hastings CIVIL DRAFTER 02/13/2014 Nurse visit Donte Hastings CIVIL DRAFTER 02/13/2014 Procedures Joe Thomas MD 02/07/2014 Office visit Joe Thomas MD 02/06/2014 Nurse visit Yvonne Cassidy MD 01/17/2014 Nurse visit Nidia Darby CIVIL DRAFTER 01/10/2014 Nurse visit Yvonne Cassidy MD 01/02/2014 Nurse visit Yvonne Cassidy MD 12/26/2013 Nurse visit Yvonne Cassidy MD 12/18/2013 Nurse visit Yvonne Cassidy MD 12/12/2013 Nurse visit Yvonne Cassidy MD 12/05/2013 Nurse visit Yvonne Cassidy MD 11/28/2013 Nurse visit Yvonne Cassidy MD 11/21/2013 Nurse visit Yvonne Cassidy MD 11/14/2013 Nurse visit Yvonne Cassidy MD 11/07/2013 Nurse visit Nidia Darby CIVIL DRAFTER 10/31/2013 Nurse visit Nidia Darby CIVIL DRAFTER 10/25/2013 Nurse visit Nidia Darby CIVIL DRAFTER 10/18/2013 Voided Nidia Darby CIVIL DRAFTER 10/10/2013 Voided Yvonne Cassidy MD 10/03/2013 Nurse [...] MD 04/18/2013 Nurse visit Nidia Sheridan Darby CIVIL DRAFTER 04/04/2013 Nurse visit Nidia Sheridan Darby CIVIL DRAFTER 03/28/2013 Nurse visit Nidia Sheridan Darby CIVIL DRAFTER 03/21/2013 Nurse visit Nidia Sheridan Darby CIVIL DRAFTER 03/13/2013 Nurse visit Nidia Sheridan Darby CIVIL DRAFTER 03/09/2013 Nurse visit Nidia Sheridan Darby CIVIL DRAFTER 03/02/2013 Nurse visit Nidia Sheridan Darby CIVIL DRAFTER 02/21/2013 Nurse visit Nidia Darby CIVIL DRAFTER 02/13/2013 Office visit Nidia Darby CIVIL DRAFTER 02/06/2013 Nurse visit Bria Mart MD 01/31/2013 [...] Mart MD 10/04/2012 Nurse visit Nidia Darby CIVIL DRAFTER 09/27/2012 Nurse visit Bria Mart MD 09/22/2012 Nurse visit Bria Mart MD 09/12/2012 Nurse visit Bria Mart MD 09/05/2012 Nurse visit Francisco J Jesus DO 08/31/2012 Nurse visit Bria Mart MD 08/23/2012 Nurse visit Bria Mart MD 08/16/2012 Nurse visit Bira Mart MD 08/10/2012 Nurse visit Bria Mart MD 08/03/2012 Nurse visit Bria Mart MD 07/26/2012 Nurse visit Bria Mart MD 07/13/2012 Nurse visit Bria Mart MD 07/05/2012 Nurse visit Bria Mart MD 06/21/2012 Nurse visit Bria Mart MD 06/14/2012 Nurse visit Bria Mart MD 06/07/2012 Nurse visit Nidia GonzalesZafar Darby CIVIL DRAFTER 06/07/2012 Voided Francisco J Edin ISSA 06/01/2012 [...] Mart MD 09/08/2011 Office visit Jessie Mock CIVIL DRAFTER 09/01/2011 Nurse visit Bria Mart MD 08/21/2011 [...]
--- OUTSIDE RECORDS SUMMARY | 2017-05-06 19:53 | XMS REPORT ---
Author Author Donte Hastings [facility] Address [address] [place], [place] [id number] Care Team Providers Care Skid Road Man Name Role Phone Donte Hastings PCP Allergies [...] HC BMI BSA BMI Percentile O2 Sat(%) 11/29/2015 3:32:00 PM 120 mmHg 70 mmHg [...] [address] [facility]#[id number] Reviewed 09/08/2011 12:00 AM IMMUNOTHERAPY INJECTIONS Reviewed [...] [address] [facility]#[id number] Reviewed 12/01/2011 12:00 AM IMMUNOTHERAPY INJECTIONS Reviewed [...] Mg [facility]# [address]-29 Reviewed 02/13/2013 12:00 AM Depo-Medrol, Per [address] [facility]#[id number] Reviewed 06/05/2013 12:00 AM MAMMOGRAM SCREENING Returned [...] BILI 0.50 mg/dLCALCIUM 10.10 mg/dLeGFR >60 mL/min/1.73 [id number] 10.0 secsINR 1.0 PTT 28.20 secs 08/28/2014 [...] CVX Influenza 06/02/2010 sanofi pasteur PMC Fluzone [id number] Intramuscular Left Deltoid 06/02/2010 02/25/2010 999 Influenza 05/09/2015 [facility] PMC Fluzone [id number] Intramuscular Left Deltoid 05/09/2015 02/22/2015 141 History [...] Hypertension, Benign Essential Nov 28 2015 4:07PM Payers Insurance Name Company Name Plan Name Plan Number Policy Number Policy Group Number Start Date [employer]BS [employer] [place] [id number] June [facility] Self Insurance Fund *INVALID State Self Insurance [id number] N/A Comp [place] [id number] Wednesday, 2015 History of Encounters Visit Date Visit Type Provider 11/29/2015 Nurse visit Donte Hastings TOOL CRIB MANAGER 11/28/2015 Nurse visit Jessie Mock TOOL CRIB MANAGER 11/27/2015 Office visit Jessie Mock TOOL CRIB MANAGER 11/25/2015 Office visit Donte Hastings TOOL CRIB MANAGER 11/18/2015 Nurse visit Donte Hastings TOOL CRIB MANAGER 11/11/2015 Nurse visit Jessie Mock TOOL CRIB MANAGER 11/04/2015 Nurse visit Donte Hastings TOOL CRIB MANAGER 10/29/2015 Office visit Jessie Nish TOOL CRIB MANAGER 10/28/2015 Nurse visit Jessie Mock TOOL CRIB MANAGER 10/21/2015 Nurse visit Glenn Tejeda MD 10/15/2015 Nurse visit Francisco J Jesus DO 10/09/2015 Nurse visit Glenn Tejeda MD 10/02/2015 Office visit April Atkinson TOOL CRIB MANAGER 10/01/2015 Nurse visit Jessie Mock TOOL CRIB MANAGER 09/11/2015 Nurse visit Yvonne Cassidy MD [...] visit 05/29/2015 Office visit Karolyn Millan TOOL CRIB MANAGER 05/29/2015 Nurse visit Yvonne Cassidy MD 05/14/2015 Nurse visit Francisco J Jesus DO 05/09/2015 Nurse visit Yvonne Cassidy MD 04/30/2015 Nurse visit Yvonne Cassidy MD 04/23/2015 Nurse visit Yvonne Cassidy MD 04/18/2015 Nurse visit Nidia Darby TOOL CRIB MANAGER 04/09/2015 Nurse visit Yvonne Cassidy MD 04/01/2015 Nurse visit Yvonne Cassidy MD 03/27/[address] Cody Horvath MD 03/25/2015 [facility] Darin Park MD 03/19/2015 Nurse visit Yvonne Cassidy MD 03/19/2015 Office visit Niida Darby TOOL CRIB MANAGER 03/04/2015 Nurse visit Yvonne Cassidy MD [...] visit 12/31/2014 Office visit Karolyn Millan TOOL CRIB MANAGER 12/24/2014 Nurse visit Yvonne Cassidy MD [...] MD 10/11/2014 Office visit Karolyn Millan TOOL CRIB MANAGER 10/09/2014 Nurse visit Yvonne Cassidy MD 10/04/2014 Nurse visit Yvonne Cassidy MD 09/19/2014 Surgery Karolyn Millan TOOL CRIB MANAGER 09/13/2014 Office visit Yvonne Cassidy MD 09/06/2014 Nurse visit Yvonne Cassidy MD 08/28/2014 [facility] Chauncey Hogan MD 08/28/2014 [facility] Joe Thomas MD 08/23/2014 Nurse visit Yvonne Cassidy MD 08/22/2014 Surgery Joe Thomas MD 08/16/2014 Nurse visit Yvonne Cassidy MD 08/07/2014 Nurse visit Yvonne Cassidy MD 08/01/2014 Nurse visit Jessie Mock TOOL CRIB MANAGER 07/25/2014 Nurse visit Nidia Darby TOOL CRIB MANAGER 07/16/2014 Nurse visit Yvonne Cassidy MD [...] MD 03/20/2014 Nurse visit Jessie Mock TOOL CRIB MANAGER 03/13/2014 Nurse visit Donte Hastings TOOL CRIB MANAGER 03/07/2014 Nurse visit Yvonne Cassidy MD 02/27/2014 Nurse visit Jessie Mock TOOL CRIB MANAGER 02/20/2014 Nurse visit Donte Hastings TOOL CRIB MANAGER 02/13/2014 Nurse visit Donte Hastings TOOL CRIB MANAGER 02/13/2014 Procedures Joe Thomas MD 02/07/2014 Office visit Joe Thomas MD 02/06/2014 Nurse visit Yvonne Cassidy MD 01/17/2014 Nurse visit Nidia Darby TOOL CRIB MANAGER 01/10/2014 Nurse visit Yvonne Cassidy MD 01/02/2014 Nurse visit Yvonne Cassidy MD 12/26/2013 Nurse visit Yvonne Cassidy MD 12/18/2013 Nurse visit Yvonne Cassidy MD 12/12/2013 Nurse visit Yvonne Cassidy MD 12/05/2013 Nurse visit Yvonne Cassidy MD 11/28/2013 Nurse visit Yvonne Cassidy MD 11/21/2013 Nurse visit Yvonne Cassidy MD 11/14/2013 Nurse visit Yvonne Cassidy MD 11/07/2013 Nurse visit Nidia Darby TOOL CRIB MANAGER 10/31/2013 Nurse visit Nidia Darby TOOL CRIB MANAGER 10/25/2013 Nurse visit Nidia Darby TOOL CRIB MANAGER 10/18/2013 Voided Nidia Darby TOOL CRIB MANAGER 10/10/2013 Voided Yvonne Cassidy MD 10/03/2013 [...] MD 04/18/2013 Nurse visit Nidia Darby TOOL CRIB MANAGER 04/04/2013 Nurse visit Nidia Darby TOOL CRIB MANAGER 03/28/2013 Nurse visit Nidia Darby TOOL CRIB MANAGER 03/21/2013 Nurse visit Nidia Darby TOOL CRIB MANAGER 03/13/2013 Nurse visit Nidia Darby TOOL CRIB MANAGER 03/09/2013 Nurse visit Nidia Darby TOOL CRIB MANAGER 03/02/2013 Nurse visit Nidia Darby TOOL CRIB MANAGER 02/21/2013 Nurse visit Nidia Darby TOOL CRIB MANAGER 02/13/2013 Office visit Nidia Darby TOOL CRIB MANAGER 02/06/2013 Nurse visit Bria Mart MD [...] MD 10/04/2012 Nurse visit Nidia Darby TOOL CRIB MANAGER 09/27/2012 Nurse visit Bria Mart MD [...] MD 06/07/2012 Nurse visit Nidia Darby TOOL CRIB MANAGER 06/07/2012 Voided Francisco J Jesus DO [...] MD 09/08/2011 Office visit Jessie Mock TOOL CRIB MANAGER 09/01/2011 Nurse visit Bria Mart MD [...]
--- OUTSIDE RECORDS SUMMARY | 2017-05-06 19:56 | XMS REPORT ---
Author Author Yvonne Cassidy Organization [facility] Address [address] [place], [place] [address] Care Team Providers Care It Architect Name Role Phone Yvonne Cassidy PCP [...] BILI 0.50 mg/dLCALCIUM 10.10 mg/dLeGFR >60 mL/min/1.73 [id number] 10.0 secsINR 1.0 PTT 28.20 secs 08/28/2014 [...] CVX Influenza 06/02/2010 sanofi pasteur PMC Fluzone [id number] Intramuscular Left Deltoid 06/02/2010 02/25/2010 999 History [...] to other allergen Nov 28 2014 4:17PM Payers Insurance Name Company Name Plan Name Plan Number Policy Number Policy Group Number Start Date [facility] [id number] June [place] Self Insurance Fund [place] Self Insurance Fund [id number] N/A History of Encounters Visit Date Visit Type Provider 11/28/2014 Nurse visit Yvonne Cassidy MD 11/19/2014 Nurse visit Yvonne Cassidy MD 11/12/2014 Nurse visit Yvonne Cassidy MD 11/05/2014 Nurse visit Yvonne Cassidy MD 10/29/2014 Nurse visit Yvonne Cassidy MD 10/24/2014 Nurse visit Yvonne Cassidy MD 10/15/2014 Nurse visit Yvonne Cassidy MD 10/11/2014 Office visit Karolyn Millan PROGRESSIVE CARE UNIT REGISTERED NURSE 10/09/2014 Nurse visit Yvonne Cassidy MD 10/04/2014 Nurse visit Yvonne Cassidy MD 09/19/2014 Surgery Karolyn Millan PROGRESSIVE CARE UNIT REGISTERED NURSE 09/13/2014 Office visit Yvonne Cassidy MD 09/06/2014 Nurse visit Yvonne Cassidy MD 08/28/2014 [facility] Joe Thomas MD 08/28/2014 [facility] Chauncey Hogan MD 08/23/2014 Nurse visit Yvonne Cassidy MD 08/22/2014 Surgery Joe Thomas MD 08/16/2014 Nurse visit Yvonne Cassidy MD 08/07/2014 Nurse visit Yvonne Cassidy MD 08/01/2014 Nurse visit Jessie Mock PROGRESSIVE CARE UNIT REGISTERED NURSE 07/25/2014 Nurse visit Nidia Darby PROGRESSIVE CARE UNIT REGISTERED NURSE 07/16/2014 Nurse visit Yvonne Cassidy MD [...] Cassidy MD 03/20/2014 Nurse visit Jessie Mock PROGRESSIVE CARE UNIT REGISTERED NURSE 03/13/2014 Nurse visit Donte Hastings PROGRESSIVE CARE UNIT REGISTERED NURSE 03/07/2014 Nurse visit Yvonne Cassidy MD 02/27/2014 Nurse visit Jessie Mock PROGRESSIVE CARE UNIT REGISTERED NURSE 02/20/2014 Nurse visit Donte Hastings PROGRESSIVE CARE UNIT REGISTERED NURSE 02/13/2014 Procedures Joe Thomas MD 02/13/2014 Nurse visit Donte Hastings PROGRESSIVE CARE UNIT REGISTERED NURSE 02/07/2014 Office visit Joe Thomas MD 02/06/2014 Nurse visit Yvonne Cassidy MD 01/17/2014 Nurse visit Nidia Darby PROGRESSIVE CARE UNIT REGISTERED NURSE 01/10/2014 Nurse visit Yvonne Cassidy MD 01/02/2014 Nurse visit Yvonne Cassidy MD 12/26/2013 Nurse visit Yvonne Cassidy MD 12/18/2013 Nurse visit Yvonne Cassidy MD 12/12/2013 Nurse visit Yvonne Cassidy MD 12/05/2013 Nurse visit Yvonne Cassidy MD 11/28/2013 Nurse visit Yvonne Cassidy MD 11/21/2013 Nurse visit Yvonne Cassidy MD 11/14/2013 Nurse visit Yvonne Cassidy MD 11/07/2013 Nurse visit Nidia Darby PROGRESSIVE CARE UNIT REGISTERED NURSE 10/31/2013 Nurse visit Nidia Darby PROGRESSIVE CARE UNIT REGISTERED NURSE 10/25/2013 Nurse visit Nidia Darby PROGRESSIVE CARE UNIT REGISTERED NURSE 10/18/2013 Voided Nidia Darby PROGRESSIVE CARE UNIT REGISTERED NURSE 10/10/2013 Voided Yvonne Cassidy MD 10/03/2013 [...] Mart MD 04/18/2013 Nurse visit Nidia Darby PROGRESSIVE CARE UNIT REGISTERED NURSE 04/04/2013 Nurse visit Nidia Darby PROGRESSIVE CARE UNIT REGISTERED NURSE 03/28/2013 Nurse visit Nidia Darby PROGRESSIVE CARE UNIT REGISTERED NURSE 03/21/2013 Nurse visit Nidia Darby PROGRESSIVE CARE UNIT REGISTERED NURSE 03/13/2013 Nurse visit Nidia Darby PROGRESSIVE CARE UNIT REGISTERED NURSE 03/09/2013 Nurse visit Nidia Darby PROGRESSIVE CARE UNIT REGISTERED NURSE 03/02/2013 Nurse visit Nidia Darby PROGRESSIVE CARE UNIT REGISTERED NURSE 02/21/2013 Nurse visit Nidia Darby PROGRESSIVE CARE UNIT REGISTERED NURSE 02/13/2013 Office visit Nidia Darby PROGRESSIVE CARE UNIT REGISTERED NURSE 02/06/2013 Nurse visit Bria Mart MD [...] MD 10/04/2012 Nurse visit Nidia Sheridan Darby PROGRESSIVE CARE UNIT REGISTERED NURSE 09/27/2012 Nurse visit Bria Mart MD [...] Mart MD 09/08/2011 Office visit Jessie Mock PROGRESSIVE CARE UNIT REGISTERED NURSE 09/08/2011 Nurse visit Bria Mart MD 09/01/2011 [...]
--- OUTSIDE RECORDS SUMMARY | 2017-05-06 20:01 | XMS REPORT ---
Author Author Jessie Mock [facility] Address [address] [place], [place] [id number] Care Team Providers Care Bleacher Operator Name Role Phone Jessie Mock PCP Unavailable Yvonne Cassidy PreferredProvider Allergies and Adverse Reactions Name Reaction Notes Ceftin rash erythromycin rash PENICILLINS rash Plan of Treatment Planned Activity Comments Planned Date Planned Time Plan/Goal Allergy Injection Multiple 04/18/2015 12:00 AM Allergy Injection Multiple 03/27/2015 12:00 AM Allergy Injection Multiple 07/22/2015 12:00 AM Allergy Injection Multiple 11/11/2015 12:00 AM Magnesium level 04/05/2017 12:00 AM Allergy Injection Multiple 09/30/2012 12:00 [...] 12:00 AM Depo-Medrol 40 mg [facility]#[id number] Reviewed 03/02/2016 12:00 AM IMMUNOTHERAPY INJECTIONS Reviewed [...] Reviewed 06/29/2016 12:00 AM PNEUMOCOCCAL VACC 13 SONDAR IM Reviewed 10/29/2011 12:00 AM IMMUNOTHERAPY INJECTIONS [...] 12:00 AM Depo-Medrol 40 mg [facility]#[id number] Reviewed 12/01/2011 12:00 AM IMMUNOTHERAPY INJECTIONS Reviewed [...] Reviewed 04/05/2017 12:00 AM IMMUNOTHERAPY INJECTIONS Reviewed 04/21/2012 12:00 [...] AM Decadron, Per 1 Mg [facility]# [id number] Reviewed 02/13/2013 12:00 AM Depo-Medrol, Per 80 Mg [facility]#[id number] Reviewed 06/05/2013 12:00 AM MAMMOGRAM SCREENING Reviewed [...] CVX Influenza 06/02/2010 sanofi pasteur PMC Fluzone [id number] Intramuscular Left Deltoid 06/02/2010 02/25/2010 999 Influenza 05/09/2015 sanofi pasteur PMC Fluzone [id number] Intramuscular Left Deltoid 05/09/2015 02/22/2015 141 Pneumococcal 06/29/2016 Kzeiy-Wzmsps-Rzdhkgi-Praxis WAL Prevnar 13 [id number] Intramuscular Right Deltoid 06/29/2016 09/14/2012 133 Zostavax [...] to other allergen Apr 05 2017 11:20AM Payers Insurance Name Company Name Plan Name Plan Number Policy Number Policy Group Number Start Date BCBS [facility] [id number] June [facility] Self Insurance Fund *INVALID State Self Insurance [id number] N/A Comp [place] [employer] [place] [id number] Wednesday, 2015 History of Encounters Visit Date Visit Type Provider 04/05/2017 Office visit Jessie Mock SLOT EDITOR 03/30/2017 Nurse visit Yvonne Cassidy MD 03/24/2017 [...] Cassidy MD 12/08/2016 Nurse visit Donte Hastings SLOT EDITOR 12/02/2016 Nurse visit Yvonne Cassidy MD 11/16/2016 Nurse visit Yvonne Cassidy MD 11/10/2016 Nurse visit Yvonne Cassidy MD 11/02/2016 Nurse visit Donte Hastings SLOT EDITOR 10/28/2016 Nurse visit Yvonne Cassidy MD [...] Cassidy MD 07/14/2016 Nurse visit Donte Hastings SLOT EDITOR 07/06/2016 Nurse visit Yvonne Cassidy MD 06/29/2016 Nurse visit Yvonne Cassidy MD 06/24/2016 Nurse visit Yvonne Cassidy MD 06/16/2016 Office visit Yvonne Cassidy MD 06/14/2016 [facility] Alexander [place] MD 06/09/2016 Nurse visit Yvonne Cassidy MD 06/02/2016 Office visit 06/02/2016 Office visit Karolyn Millan SLOT EDITOR 06/01/2016 Nurse visit Yvonne Cassidy MD 05/27/2016 Nurse visit Yvonne Cassidy MD 05/11/2016 Nurse visit Yvonne Cassidy MD 05/05/2016 Nurse visit Yvonne Cassidy MD 04/29/2016 Nurse visit Yvonne Cassidy MD 04/23/2016 Office visit Jessie Mock SLOT EDITOR 04/13/2016 Nurse visit Yvonne Cassidy MD 04/07/2016 Nurse visit Yvonne Cassidy MD 04/01/2016 Office visit Jessie Mock SLOT EDITOR 03/26/2016 Nurse visit Yvonne Cassidy MD 03/17/2016 Nurse visit Yvonne Cassidy MD 03/11/2016 Nurse visit Yvonne Cassidy MD 03/04/2016 Office visit Jessie Mock SLOT EDITOR 03/02/2016 Nurse visit Yvonne Cassidy MD 02/19/2016 Nurse visit Yvonne Cassidy MD 02/12/2016 Office visit Jessie Mock SLOT EDITOR 02/03/2016 Nurse visit Yvonne Cassidy MD 01/27/2016 Nurse visit Yvonne Cassidy MD 01/15/2016 Nurse visit Yvonne Cassidy MD 01/08/2016 Office visit Jessie Mock SLOT EDITOR 12/25/2015 Nurse visit Yvonne Cassidy MD 12/09/2015 Nurse visit Yvonne Cassidy MD 12/02/2015 Nurse visit Yvonne Cassidy MD 11/29/2015 Nurse visit Donte Hastings SLOT EDITOR 11/28/2015 Nurse visit Jessie Nish SLOT EDITOR 11/27/2015 Office visit Jessie Mock SLOT EDITOR 11/25/2015 Office visit Donte Hastings SLOT EDITOR 11/18/2015 Nurse visit Donte Hastings SLOT EDITOR 11/11/2015 Nurse visit Jessie Nish SLOT EDITOR 11/04/2015 Nurse visit Donte Hastings SLOT EDITOR 10/29/2015 Office visit Jessie Nish SLOT EDITOR 10/28/2015 Nurse visit Jessie Nish SLOT EDITOR 10/21/2015 Nurse visit Glenn Tejeda MD 10/15/2015 Nurse visit Francisco J Jesus DO 10/09/2015 Nurse visit Glenn Tejeda MD 10/02/2015 Office visit April Atkinson SLOT EDITOR 10/01/2015 Nurse visit Jessie Mock SLOT EDITOR 09/11/2015 Nurse visit Yvonne Cassidy MD [...] Office visit 05/29/2015 Office visit Karolyn Millan SLOT EDITOR 05/29/2015 Nurse visit Yvonne Cassidy MD 05/14/2015 Nurse visit Francisco J Jesus DO 05/09/2015 Nurse visit Yvonne Cassidy MD 04/30/2015 Nurse visit Yvonne Cassidy MD 04/23/2015 Nurse visit Yvonne Cassidy MD 04/18/2015 Nurse visit Nidia Darby SLOT EDITOR 04/09/2015 Nurse visit Yvonne Cassidy MD 04/01/2015 Nurse visit Yvonne Cassidy MD 03/27/[address] Cody Horvath MD 03/25/2015 [facility] Darin Park MD 03/19/2015 Nurse visit Yvonne Cassidy MD 03/19/2015 Office visit Nidia Darby SLOT EDITOR 03/04/2015 Nurse visit Yvonne Cassidy MD 02/25/2015 Nurse visit Yvonne Cassidy MD 02/18/2015 Nurse visit Yvonne Cassidy MD 02/11/2015 Nurse visit Yvonne Cassidy MD 02/04/2015 Nurse visit Yvonne Cassidy MD 01/28/2015 Nurse visit Yvonne Cassidy MD 01/21/2015 Nurse visit Yvonne Cassidy MD 01/15/2015 Nurse visit Yvnone Cassidy MD 01/07/2015 Nurse visit Yvonne Cassidy MD 12/31/2014 Nurse visit Yvonne Cassidy MD 12/31/2014 Office visit 12/31/2014 Office visit 12/31/2014 Office visit Karolyn Millan SLOT EDITOR 12/24/2014 Nurse visit Yvonne Cassidy MD [...] Cassidy MD 10/11/2014 Office visit Karolyn Millan SLOT EDITOR 10/09/2014 Nurse visit Yvonne Cassidy MD 10/04/2014 Nurse visit Yvonne Cassidy MD 09/19/2014 Surgery Karolyn Millan SLOT EDITOR 09/13/2014 Office visit Yvonne Cassidy MD 09/06/2014 Nurse visit Yvonne Cassidy MD 08/28/2014 [facility] Chauncey Hogan MD 08/28/2014 [facility] Joe Thomas MD 08/23/2014 Nurse visit Yvonne Cassidy MD 08/22/2014 Surgery Joe Thomas MD 08/16/2014 Nurse visit Yvonne Cassidy MD 08/07/2014 Nurse visit Yvonne Cassidy MD 08/01/2014 Nurse visit Jessie Mock SLOT EDITOR 07/25/2014 Nurse visit Nidia Darby SLOT EDITOR 07/16/2014 Nurse visit Yvonne Cassidy MD [...] Cassidy MD 03/20/2014 Nurse visit Jessie Mock SLOT EDITOR 03/13/2014 Nurse visit Donte Hastings SLOT EDITOR 03/07/2014 Nurse visit Yvonne Cassidy MD 02/27/2014 Nurse visit Jessie Mock SLOT EDITOR 02/20/2014 Nurse visit Donte Hastings SLOT EDITOR 02/13/2014 Nurse visit Donte Hastings SLOT EDITOR 02/13/2014 Procedures Joe Thomas MD 02/07/2014 Office visit Joe Thomas MD 02/06/2014 Nurse visit Yvonne Cassidy MD 01/17/2014 Nurse visit Nidia Darby SLOT EDITOR 01/10/2014 Nurse visit Yvonne Cassidy MD 01/02/2014 Nurse visit Yvonne Cassidy MD 12/26/2013 Nurse visit Yvonne Cassidy MD 12/18/2013 Nurse visit Yvonne Cassidy MD 12/12/2013 Nurse visit Yvonne Cassidy MD 12/05/2013 Nurse visit Yvonne Cassidy MD 11/28/2013 Nurse visit Yvonne Cassidy MD 11/21/2013 Nurse visit Yvonne Cassidy MD 11/14/2013 Nurse visit Yvonne Cassidy MD 11/07/2013 Nurse visit Nidia Darby SLOT EDITOR 10/31/2013 Nurse visit Nidia Darby SLOT EDITOR 10/25/2013 Nurse visit Nidia Darby SLOT EDITOR 10/18/2013 Voided Nidia Darby SLOT EDITOR 10/10/2013 Voided Yvonne Cassidy MD 10/03/2013 [...] Mart MD 04/18/2013 Nurse visit Nidia Darby SLOT EDITOR 04/04/2013 Nurse visit Nidia Darby SLOT EDITOR 03/28/2013 Nurse visit Nidia Darby SLOT EDITOR 03/21/2013 Nurse visit Nidia Darby SLOT EDITOR 03/13/2013 Nurse visit Nidia Darby SLOT EDITOR 03/09/2013 Nurse visit Nidia NZafar Wilner SLOT EDITOR 03/02/2013 Nurse visit Nidia GonzalesZafar Wilner SLOT EDITOR 02/21/2013 Nurse visit Nidia Sheridan Wilner SLOT EDITOR 02/13/2013 Office visit Nidia Darby SLOT EDITOR 02/06/2013 Nurse visit Bria Mart MD [...] visit Bria Mart MD 10/04/2012 Nurse visit Nidai Sheridan Darby SLOT EDITOR 09/27/2012 Nurse visit Bria Mart MD [...] Mart MD 06/07/2012 Nurse visit Nidia Darby SLOT EDITOR 06/07/2012 Voided Francisco J Jesus 06/01/2012 [...] Mart MD 09/08/2011 Office visit Jessie Mock SLOT EDITOR 09/01/2011 Nurse visit Bria Mart MD [...]
--- OUTSIDE RECORDS SUMMARY | 2017-05-06 20:05 | XMS REPORT ---
Author Author Yvonne Cassidy Organization [facility] Address [address] [place], [place] [id number] Care Team Providers Care Vp Rheumatology Name Role Phone Yvonne Cassidy PCP Yvonne [...] Depo-Medrol 40 mg [facility]#[id number] Reviewed 03/02/2016 12:00 AM IMMUNOTHERAPY INJECTIONS Reviewed [...] Depo-Medrol 40 mg [facility]#[id number] Reviewed 12/01/2011 12:00 AM IMMUNOTHERAPY INJECTIONS Reviewed [...] 1 Mg [facility]# [address]-91 Reviewed 02/13/2013 12:00 AM Depo-Medrol, Per 80 Mg [facility]#0204-7980-66 Reviewed 06/05/2013 12:00 AM MAMMOGRAM SCREENING Reviewed [...] CVX Influenza 06/02/2010 sanofi pasteur PMC Fluzone [id number] Intramuscular Left Deltoid 06/02/2010 02/25/2010 999 Influenza 05/09/2015 sanofi pasteur PMC Fluzone [id number] Intramuscular Left Deltoid 05/09/2015 02/22/2015 141 Pneumococcal 06/29/2016 Tfpyk-Uyixaq-Xegtfsr-Praxis [facility] Prevnar 13 [id number] Intramuscular Right Deltoid 06/29/2016 09/14/2012 133 Zostavax [...] to other allergen Feb 09 2017 4:02PM Payers Insurance Name Company Name Plan Name Plan Number Policy Number Policy Group Number Start Date [employer] [place] [id number] June [facility] Self Insurance Fund *INVALID State Self Insurance [id number] N/A Comp [place] [id number] Wednesday, 2015 History of Encounters Visit Date Visit Type Provider 02/09/2017 Nurse visit Yvonne Cassidy MD 02/01/2017 [...] 06/16/2016 Office visit Yvonne Cassidy MD 06/14/2016 [facility] Alexander Park MD 06/09/2016 Nurse visit Yvonne Cassidy MD 06/02/2016 Office visit 06/02/2016 Office visit Karolyn Millan BARN HAND 06/01/2016 Nurse visit Yvonne Cassidy MD 05/27/2016 Nurse visit Yvonne Cassidy MD 05/11/2016 Nurse visit Yvonne Cassidy MD 05/05/2016 Nurse visit Yvonne Cassidy MD 04/29/2016 Nurse visit Yvonne Cassidy MD 04/23/2016 Office visit Jessie Mock BARN HAND 04/13/2016 Nurse visit Yvonne Cassidy MD 04/07/2016 Nurse visit Yvonne Cassidy MD 04/01/2016 Office visit Jessie Mock BARN HAND 03/26/2016 Nurse visit Yvonne Cassidy MD 03/17/2016 Nurse visit Yvonne Cassidy MD 03/11/2016 Nurse visit Yvonne Cassidy MD 03/04/2016 Office visit Jessie Mock BARN HAND 03/02/2016 Nurse visit Yvonne Cassidy MD 02/19/2016 Nurse visit Yvonne Cassidy MD 02/12/2016 Office visit Jessie Mock BARN HAND 02/03/2016 Nurse visit Yvonne Cassidy MD 01/27/2016 Nurse visit Yvonne Cassidy MD 01/15/2016 Nurse visit Yvonne Cassidy MD 01/08/2016 Office visit Jessie Mock BARN HAND 12/25/2015 Nurse visit Yvonne Cassidy MD 12/09/2015 Nurse visit Yvonne Cassdiy MD 12/02/2015 Nurse visit Yvonne Cassidy MD 11/29/2015 Nurse visit Donte Hastings BARN HAND 11/28/2015 Nurse visit Jessie Mock BARN HAND 11/27/2015 Office visit Jessie Mock BARN HAND 11/25/2015 Office visit Donte Hastings BARN HAND 11/18/2015 Nurse visit Donte Hastings BARN HAND 11/11/2015 Nurse visit Jessie Mock BARN HAND 11/04/2015 Nurse visit Donte Hastings BARN HAND 10/29/2015 Office visit Jessie Mock BARN HAND 10/28/2015 Nurse visit Jessie Mock BARN HAND 10/21/2015 Nurse visit Glenn Tejeda MD 10/15/2015 Nurse visit Francisco J Jesus DO 10/09/2015 Nurse visit Glenn Tejeda MD 10/02/2015 Office visit April Atkinson BARN HAND 10/01/2015 Nurse visit Jessie Mock BARN HAND 09/11/2015 Nurse visit Yvonne Cassidy MD [...] Office visit 05/29/2015 Office visit Karolyn Millan BARN HAND 05/29/2015 Nurse visit Yvonne Cassidy MD 05/14/2015 Nurse visit Francisco J Jesus DO 05/09/2015 Nurse visit Yvonne Cassidy MD 04/30/2015 Nurse visit Yvonne Cassidy MD 04/23/2015 Nurse visit Yvonne Cassidy MD 04/18/2015 Nurse visit Nidia Darby BARN HAND 04/09/2015 Nurse visit Yvonne Cassidy MD 04/01/2015 Nurse visit Yvonne Cassidy MD 03/27/[address] Cody Horvath MD 03/25/2015 [facility] [place] MD 03/19/2015 Nurse visit Yvonne Cassidy MD 03/19/2015 Office visit Nidia Darby BARN HAND 03/04/2015 Nurse visit Yvonne Cassidy MD [...] Office visit 12/31/2014 Office visit Karolyn Millan BARN HAND 12/24/2014 Nurse visit Yvonne Cassidy MD [...] visit Yvonne Cassidy MD 10/15/2014 Nurse visit Yvonen Cassidy MD 10/11/2014 Office visit Karolyn Millan BARN HAND 10/09/2014 Nurse visit Yvonne Cassidy MD 10/04/2014 Nurse visit Yvonne Cassidy MD 09/19/2014 Surgery Karolyn Millan BARN HAND 09/13/2014 Office visit Yvonne Cassidy MD 09/06/2014 Nurse visit Yvonne Cassidy MD 08/28/2014 [facility] Chauncey Hogan MD 08/28/2014 [facility] Joe Thomas MD 08/23/2014 Nurse visit Yvonne Cassidy MD 08/22/2014 Surgery Joe Thomas MD 08/16/2014 Nurse visit Yvonne Cassidy MD 08/07/2014 Nurse visit Yvonne Cassidy MD 08/01/2014 Nurse visit Jessie Mock BARN HAND 07/25/2014 Nurse visit Nidia Darby BARN HAND 07/16/2014 Nurse visit Yvonne Cassidy MD [...] Cassidy MD 03/20/2014 Nurse visit Jessie Mock BARN HAND 03/13/2014 Nurse visit Donte Hastings BARN HAND 03/07/2014 Nurse visit Yvonne Cassidy MD 02/27/2014 Nurse visit Jessie Mock BARN HAND 02/20/2014 Nurse visit Donte Hastings BARN HAND 02/13/2014 Nurse visit Donte Hastings BARN HAND 02/13/2014 Procedures Joe Thomas MD 02/07/2014 Office visit Joe Thomas MD 02/06/2014 Nurse visit Yvonne Cassidy MD 01/17/2014 Nurse visit Nidia Darby BARN HAND 01/10/2014 Nurse visit Yvonne Cassidy MD 01/02/2014 Nurse visit Yvonne Cassidy MD 12/26/2013 Nurse visit Yvonne Cassidy MD 12/18/2013 Nurse visit Yvonne Cassidy MD 12/12/2013 Nurse visit Yvonne Cassidy MD 12/05/2013 Nurse visit Yvonne Cassidy MD 11/28/2013 Nurse visit Yvonne Cassidy MD 11/21/2013 Nurse visit Yvonne Cassidy MD 11/14/2013 Nurse visit Yvonne Cassidy MD 11/07/2013 Nurse visit Nidia Darby BARN HAND 10/31/2013 Nurse visit Nidia Darby BARN HAND 10/25/2013 Nurse visit Nidia Darby BARN HAND 10/18/2013 Voided Nidia Darby BARN HAND 10/10/2013 Voided Yvonne Cassidy MD 10/03/2013 [...] Mart MD 04/18/2013 Nurse visit Nidia Darby BARN HAND 04/04/2013 Nurse visit Nidia Darby BARN HAND 03/28/2013 Nurse visit Nidia Darby BARN HAND 03/21/2013 Nurse visit Nidia Darby BARN HAND 03/13/2013 Nurse visit Nidia Darby BARN HAND 03/09/2013 Nurse visit Nidia Darby BARN HAND 03/02/2013 Nurse visit Nidia Darby BARN HAND 02/21/2013 Nurse visit Nidia Darby BARN HAND 02/13/2013 Office visit Nidia Darby BARN HAND 02/06/2013 Nurse visit Bria Mart MD [...] Mart MD 10/04/2012 Nurse visit Nidia Darby BARN HAND 09/27/2012 Nurse visit Bria Mart MD [...] Mart MD 06/07/2012 Nurse visit Nidia Darby BARN HAND 06/07/2012 Voided Francisco J Jesus DO [...] Mart MD 09/08/2011 Office visit Jessie Mock BARN HAND 09/01/2011 Nurse visit Bria Mart MD [...]
--- OUTSIDE RECORDS SUMMARY | 2017-05-06 20:08 | XMS REPORT ---
Author Author Yvonne Cassidy [facility] Address [address] [place], [place] [id number] Care Team Providers Care Dynamicist Name Role Phone Yvonne Cassidy PCP Allergies [...] Reviewed 08/21/2011 12:00 AM Depo-Medrol 40 mg [facility]#[id number] Reviewed 09/08/2011 12:00 AM IMMUNOTHERAPY INJECTIONS Reviewed [...] Reviewed 11/27/2011 12:00 AM Depo-Medrol 40 mg [facility]#[id number] Reviewed 12/01/2011 12:00 AM IMMUNOTHERAPY INJECTIONS Reviewed [...] 02/13/2013 12:00 AM Decadron, Per 1 Mg [facility]# [address]-16 Reviewed 02/13/2013 12:00 AM Depo-Medrol, Per 80 Mg [facility]#8981-6994-91 Reviewed 06/05/2013 12:00 AM MAMMOGRAM SCREENING Returned [...] BILI 0.50 mg/dLCALCIUM 10.10 mg/dLeGFR >60 mL/min/1.73 [id number] 10.0 secsINR 1.0 PTT 28.20 secs 08/28/2014 [...] CVX Influenza 06/02/2010 sanofi pasteur PMC Fluzone [id number] Intramuscular Left Deltoid 06/02/2010 02/25/2010 999 History [...] 4:12PM Pre-operative examination Mar 19 2015 3:39PM Payers Insurance Name Company Name Plan Name Plan Number Policy Number Policy Group Number [facility] Date [id number] [place] *[place] Self Insurance [id number] N /A History of Encounters Visit Date Visit Type Provider 03/19/2015 Nurse visit Yvonne Cassidy MD 03/19/2015 Office visit Nidia Darby DRY KILN OPERATOR HELPER 03/04/2015 Nurse visit Yvonne Cassidy MD 02/25/2015 [...] Cassidy MD 12/31/2014 Office visit Karolyn Millan DRY KILN OPERATOR HELPER 12/24/2014 Nurse visit Yvonne Cassidy MD 12/17/2014 [...] Cassidy MD 10/11/2014 Office visit Karolyn Millan DRY KILN OPERATOR HELPER 10/09/2014 Nurse visit Yvonne Cassidy MD 10/04/2014 Nurse visit Yvonne Cassidy MD 09/19/2014 Surgery Karolyn Millan DRY KILN OPERATOR HELPER 09/13/2014 Office visit Yvonne Cassidy MD 09/06/2014 Nurse visit Yvonne Cassidy MD 08/28/2014 Hospital Chauncey Hogan MD 08/28/2014 Hospital Joe Thomas MD 08/23/2014 Nurse visit Yvonne Cassidy MD 08/22/2014 Surgery Joe Thomas MD 08/16/2014 Nurse visit Yvonne Cassidy MD 08/07/2014 Nurse visit Yvonne Cassidy MD 08/01/2014 Nurse visit Jessie Mock DRY KILN OPERATOR HELPER 07/25/2014 Nurse visit Nidia Darby DRY KILN OPERATOR HELPER 07/16/2014 Nurse visit Yvonne Cassidy MD 07/09/2014 [...] Cassidy MD 03/20/2014 Nurse visit Jessie Mock DRY KILN OPERATOR HELPER 03/13/2014 Nurse visit Donte Hastings DRY KILN OPERATOR HELPER 03/07/2014 Nurse visit Yvonne Cassidy MD 02/27/2014 Nurse visit Jessie Mock DRY KILN OPERATOR HELPER 02/20/2014 Nurse visit Donte Hastings DRY KILN OPERATOR HELPER 02/13/2014 Nurse visit Donte Hastings DRY KILN OPERATOR HELPER 02/13/2014 Procedures Joe Thomas MD 02/07/2014 Office visit Joe Thomas MD 02/06/2014 Nurse visit Yvonne Cassidy MD 01/17/2014 Nurse visit Nidia Darby DRY KILN OPERATOR HELPER 01/10/2014 Nurse visit Yvonne Cassidy MD 01/02/2014 Nurse visit Yvonne Cassidy MD 12/26/2013 Nurse visit Yvonne Cassidy MD 12/18/2013 Nurse visit Yvonne Cassidy MD 12/12/2013 Nurse visit Yvonne Cassidy MD 12/05/2013 Nurse visit Yvonne Cassidy MD 11/28/2013 Nurse visit Yvonne Cassidy MD 11/21/2013 Nurse visit Yvonne Cassidy MD 11/14/2013 Nurse visit Yvonne Cassidy MD 11/07/2013 Nurse visit Nidia Darby DRY KILN OPERATOR HELPER 10/31/2013 Nurse visit Nidia Darby DRY KILN OPERATOR HELPER 10/25/2013 Nurse visit Nidia Darby DRY KILN OPERATOR HELPER 10/18/2013 Voided Nidia Darby DRY KILN OPERATOR HELPER 10/10/2013 Voided Yvonne Cassidy MD 10/03/2013 Nurse visit Yvonne Cassidy MD 09/18/2013 Office visit Yvonne Cassidy MD 09/15/2013 Nurse visit Yvonne Cassidy MD 09/08/2013 Office visit Joe Thomas MD 09/05/2013 Nurse visit Yvonne Cassidy MD 08/29/2013 Nurse visit Yovnne Cassidy MD 08/21/2013 Nurse visit Yvonne Cassidy [...] Mart MD 04/18/2013 Nurse visit Nidia Darby DRY KILN OPERATOR HELPER 04/04/2013 Nurse visit Nidia Darby DRY KILN OPERATOR HELPER 03/28/2013 Nurse visit Nidia Darby DRY KILN OPERATOR HELPER 03/21/2013 Nurse visit Nidia Darby DRY KILN OPERATOR HELPER 03/13/2013 Nurse visit Nidia Darby DRY KILN OPERATOR HELPER 03/09/2013 Nurse visit Nidia Darby DRY KILN OPERATOR HELPER 03/02/2013 Nurse visit Nidia Darby DRY KILN OPERATOR HELPER 02/21/2013 Nurse visit Nidia Darby DRY KILN OPERATOR HELPER 02/13/2013 Office visit Nidia Darby DRY KILN OPERATOR HELPER 02/06/2013 Nurse visit Bria Mart MD 01/31/2013 [...] MD 10/04/2012 Nurse visit Nidia Sheridan Darby DRY KILN OPERATOR HELPER 09/27/2012 Nurse visit Bria Mart MD 09/22/2012 [...] Mart MD 06/07/2012 Nurse visit Nidia Darby DRY KILN OPERATOR HELPER 06/07/2012 Voided Francisco J Jesus 06/01/2012 Office [...] Mart MD 09/08/2011 Office visit Jessie Mock DRY KILN OPERATOR HELPER 09/01/2011 Nurse visit Bria Mart MD 08/21/2011 [...]
--- OUTSIDE RECORDS SUMMARY | 2017-05-06 20:12 | XMS REPORT ---
Author Author Donte Hastings [facility] Address [address] [place], [place] [id number] Care Team Providers Care Grocery Worker Name Role Phone Donte Hastings PCP Allergies [...] Reviewed 08/21/2011 12:00 AM Depo-Medrol 40 mg [facility]#[id number] Reviewed 09/08/2011 12:00 AM IMMUNOTHERAPY INJECTIONS Reviewed [...] Reviewed 11/27/2011 12:00 AM Depo-Medrol 40 mg [facility]#[id number] Reviewed 12/01/2011 12:00 AM IMMUNOTHERAPY INJECTIONS Reviewed [...] 02/13/2013 12:00 AM Decadron, Per 1 Mg [facility]# [address]-55 Reviewed 02/13/2013 12:00 AM Depo-Medrol, Per 80 Mg [facility]#8165-5968-72 Reviewed 06/05/2013 12:00 AM MAMMOGRAM SCREENING Returned [...] BILI 0.50 mg/dLCALCIUM 10.10 mg/dLeGFR >60 mL/min/1.73 [id number] 10.0 secsINR 1.0 PTT 28.20 secs 08/28/2014 [...] CVX Influenza 06/02/2010 sanofi pasteur PMC Fluzone [id number] Intramuscular Left Deltoid 06/02/2010 02/25/2010 999 Influenza 05/09/2015 sanofi pasteur PMC Fluzone [id number] Intramuscular Left Deltoid 05/09/2015 02/22/2015 141 History [...] to other allergen Nov 18 2015 4:12PM Payers Insurance Name Company Name Plan Name Plan Number Policy Number Policy Group Number Start Date [facility] [id number] June [facility] Self Insurance Fund *INVALID State Self Insurance [id number] N/A History of Encounters Visit Date Visit Type Provider 11/18/2015 Nurse visit Donte Hastings CLUTCH MECHANIC 11/11/2015 Nurse visit Jessie Mock CLUTCH MECHANIC 11/04/2015 Nurse visit Donte Hastings APRN 10/29/2015 Office visit Jessie Mock APRN 10/28/2015 Nurse visit Jessie Mock CLUTCH MECHANIC 10/21/2015 Nurse visit Glenn Tejeda MD 10/15/2015 Nurse visit Francisco J Jesus DO 10/09/2015 Nurse visit Glenn Tejeda MD 10/02/2015 Office visit April Atkinson APRN 10/01/2015 Nurse visit Jessie Mock CLUTCH MECHANIC 09/11/2015 Nurse visit Yvonne Cassidy MD 09/05/2015 Nurse visit Yvonne Cassidy MD 08/19/2015 Nurse visit Yvonne Casisdy MD 08/14/2015 Nurse visit Yvonne Cassidy MD 07/29/2015 Nurse visit Yvonne Cassidy MD 07/22/2015 Nurse visit Yvonne Cassidy MD 07/09/2015 Nurse visit Yvonne Cassidy MD 07/01/2015 Nurse visit Yvonne Cassidy MD 06/26/2015 Nurse visit Yvonne Cassidy MD 06/17/2015 Nurse visit Yvonne Cassidy MD 06/10/2015 Nurse visit Yvonne Cassidy MD 06/04/2015 Nurse visit Yvonne Cassidy MD 05/29/2015 Office visit 05/29/2015 Office visit Karolyn Millan CLUTCH MECHANIC 05/29/2015 Nurse visit Yvonne Cassidy MD 05/14/2015 Nurse visit Francisco J Jesus DO 05/09/2015 Nurse visit Yvonne Cassidy MD 04/30/2015 Nurse visit Yvonne Cassidy MD 04/23/2015 Nurse visit Yvonne Cassidy MD 04/18/2015 Nurse visit Nidia Darby CLUTCH MECHANIC 04/09/2015 Nurse visit Yvonne Cassidy MD 04/01/2015 Nurse visit Yvonne Cassidy MD 03/27/[address] Cody Horvath MD 03/25/2015 [facility] Alexander Park MD 03/19/2015 Nurse visit Yvonne Cassidy MD 03/19/2015 Office visit Nidia Darby CLUTCH MECHANIC 03/04/2015 Nurse visit Yvonne Cassidy MD [...] Office visit 12/31/2014 Office visit Karolyn Millan CLUTCH MECHANIC 12/24/2014 Nurse visit Yvonne Cassidy MD [...] Cassidy MD 10/11/2014 Office visit Karolyn Millan CLUTCH MECHANIC 10/09/2014 Nurse visit Yvonne Cassidy MD 10/04/2014 Nurse visit Yvonne Cassidy MD 09/19/2014 Surgery Karolyn Millan CLUTCH MECHANIC 09/13/2014 Office visit Yvonne Cassidy MD 09/06/2014 Nurse visit Yvonne Cassidy MD 08/28/2014 Hospital Chauncey Hogan MD 08/28/2014 [facility] Joe Thomas MD 08/23/2014 Nurse visit Yvonne Cassidy MD 08/22/2014 Surgery Joe Thomas MD 08/16/2014 Nurse visit Yvonne Cassidy MD 08/07/2014 Nurse visit Yvonne Cassidy MD 08/01/2014 Nurse visit Jessie Mock CLUTCH MECHANIC 07/25/2014 Nurse visit Nidia Darby CLUTCH MECHANIC 07/16/2014 Nurse visit Yvonne Cassidy MD 07/09/2014 Nurse visit Yvonne Cassidy MD 07/03/2014 Nurse visit Yvonne Cassidy MD 06/28/2014 Nurse visit Yvonne Cassidy MD 06/20/2014 Nurse visit Yvonne Cassidy MD 06/12/2014 Nurse visit Yvonne Cassidy MD 05/30/2014 Nurse visit Yvonne Casisdy MD 05/21/2014 Nurse visit Yvonne Cassidy MD 05/15/2014 Nurse visit Yvonne Cassidy MD 05/09/2014 Office visit Joe Thomas MD 05/08/2014 Nurse visit Yvonne Cassidy MD 04/30/2014 Office visit Yvonne Cassidy MD 2014 Nurse visit Yvonne Cassidy MD 04/10/2014 Nurse visit Yvonne Cassidy MD 04/02/2014 Nurse visit Yvonne Cassidy MD 03/26/2014 Nurse visit Yvonne Cassidy MD 03/20/2014 Nurse visit Jessie Mock CLUTCH MECHANIC 03/13/2014 Nurse visit Donte Hastings CLUTCH MECHANIC 03/07/2014 Nurse visit Yvonne Cassidy MD 02/27/2014 Nurse visit Jessie Mock CLUTCH MECHANIC 02/20/2014 Nurse visit Donte Hastings CLUTCH MECHANIC 02/13/2014 Nurse visit Donte Hastings CLUTCH MECHANIC 02/13/2014 Procedures Joe Thomas MD 02/07/2014 Office visit Jeo Thomas MD 02/06/2014 Nurse visit Yvonne Cassidy MD 01/17/2014 Nurse visit Nidia Darby CLUTCH MECHANIC 01/10/2014 Nurse visit Yvonne Cassidy MD 01/02/2014 Nurse visit Yvonne Cassidy MD 12/26/2013 Nurse visit Yvonne Cassidy MD 12/18/2013 Nurse visit Yvonne Cassidy MD 12/12/2013 Nurse visit Yvonne Cassidy MD 12/05/2013 Nurse visit Yvonne Cassidy MD 11/28/2013 Nurse visit Yvonne Cassidy MD 11/21/2013 Nurse visit Yvonne Cassidy MD 11/14/2013 Nurse visit Yvonne Cassidy MD 11/07/2013 Nurse visit Nidia Darby CLUTCH MECHANIC 10/31/2013 Nurse visit Nidia Darby CLUTCH MECHANIC 10/25/2013 Nurse visit Nidia Darby CLUTCH MECHANIC 10/18/2013 Voided Nidia Darby CLUTCH MECHANIC 10/10/2013 Voided Yvonne Cassidy MD 10/03/2013 [...] MD 04/18/2013 Nurse visit Nidia Sheridan Darby CLUTCH MECHANIC 04/04/2013 Nurse visit Nidia Darby CLUTCH MECHANIC 03/28/2013 Nurse visit Nidia Darby CLUTCH MECHANIC 03/21/2013 Nurse visit Nidia Darby CLUTCH MECHANIC 03/13/2013 Nurse visit Nidia Sheridan Darby CLUTCH MECHANIC 03/09/2013 Nurse visit Nidia Sheridan Darby CLUTCH MECHANIC 03/02/2013 Nurse visit Nidia Darby CLUTCH MECHANIC 02/21/2013 Nurse visit Nidia Darby CLUTCH MECHANIC 02/13/2013 Office visit Nidia Darby CLUTCH MECHANIC 02/06/2013 Nurse visit Bria Mart MD 01/31/2013 Nurse visit Bria Mart MD 01/24/2013 Nurse visit Bria Mart MD 01/17/2013 Nurse visit Bria Mart MD 01/10/2013 Nurse visit Bria Mart MD 01/02/2013 Nurse visit Bria Mart MD 12/20/2012 Nurse visit Bria Mart MD 12/14/2012 Nurse visit Bria Mart MD 12/06/2012 Nurse visit Bria aMrt MD 11/29/2012 Nurse visit Bria Mart MD 11/22/2012 Nurse visit Bria Mart MD 11/15/2012 Nurse visit Bria Mart MD 11/08/2012 Nurse visit Bria Mart MD 11/01/2012 Nurse visit Bria Mart MD 10/25/2012 Nurse visit Bria Mart MD 10/18/2012 Nurse visit Bria Mart MD 10/11/2012 Nurse visit Bria Mart MD 10/04/2012 Nurse visit Nidia Darby CLUTCH MECHANIC 09/27/2012 Nurse visit Bria Mart MD [...] Nidia Darby APRN 06/07/2012 Voided Francisco J Danielsonnola [...] visit Bria Mart MD 03/29/2012 Nurse visit rBia Mart MD 03/22/2012 Nurse visit Bria Mart [...] Mart MD 09/08/2011 Office visit Jessie Mock CLUTCH MECHANIC 09/01/2011 Nurse visit Bria Mart MD [...]
--- OUTSIDE RECORDS SUMMARY | 2017-05-06 20:16 | XMS REPORT ---
Author Author Yvonne Cassidy Organization [facility] Address [address] [place], [place] [id number] Care Team Providers Care Shoveler Name Role Phone Yvonne Cassidy PCP Yvonne [...] oral route once daily for 30 days Zyrtec-D 5-120 mg oral [...] 40 mg [facility]#[id number] Reviewed 03/02/2016 12:00 AM IMMUNOTHERAPY INJECTIONS Reviewed [...] 40 mg [facility]#[id number] Reviewed 12/01/2011 12:00 AM IMMUNOTHERAPY INJECTIONS Reviewed [...] Mg [facility]# [address]-60 Reviewed 02/13/2013 12:00 AM Depo-Medrol, Per 80 Mg [facility]#[id number] Reviewed 06/05/2013 12:00 AM MAMMOGRAM SCREENING Reviewed [...] IND History Of Immunizations Name Date Admin [facility] Name [facility] Code Trade Name Lot# Route Inj Vis Given Vis Pub CVX Influenza 06/02/2010 sanofi pasteur PMC Fluzone [id number] Intramuscular Left Deltoid 06/02/2010 02/25/2010 999 Influenza 05/09/2015 sanofi pasteur PMC Fluzone [id number] Intramuscular Left Deltoid 05/09/2015 02/22/2015 141 History [...] to other allergen Jun 16 2016 9:31AM Payers Insurance Name Company Name Plan Name Plan Number Policy Number Policy Group Number Start Date BCBS [facility] [id number] June [facility] Self Insurance Fund *INVALID State Self Insurance [id number] N/A [place] [id number] Wednesday, 2015 History of Encounters Visit Date Visit Type Provider 06/16/2016 Office visit Yvonne Cassidy MD 06/09/2016 Nurse visit Yvonne Cassidy MD 06/02/2016 Office visit 06/02/2016 Office visit Karolyn Millan DECAL MAKER 06/01/2016 Nurse visit Yvonne Cassidy MD 05/27/2016 Nurse visit Yvonne Cassidy MD 05/11/2016 Nurse visit Yvonne Cassidy MD 05/05/2016 Nurse visit Yvonne Cassidy MD 04/29/2016 Nurse visit Yvonne Cassidy MD 04/23/2016 Office visit Jessie Mock DECAL MAKER 04/13/2016 Nurse visit Yvonne Cassidy MD 04/07/2016 Nurse visit Yvonne Cassidy MD 04/01/2016 Office visit Jessie Mock DECAL MAKER 03/26/2016 Nurse visit Yvonne Cassidy MD 03/17/2016 Nurse visit Yvonne Cassidy MD 03/11/2016 Nurse visit Yvonne Cassidy MD 03/04/2016 Office visit Jessie Mock DECAL MAKER 03/02/2016 Nurse visit Yvonne Cassidy MD 02/19/2016 Nurse visit Yvonne Cassidy MD 02/12/2016 Office visit Jessie Mock DECAL MAKER 02/03/2016 Nurse visit Yvonne Cassidy MD 01/27/2016 Nurse visit Yvonne Cassidy MD 01/15/2016 Nurse visit Yvonne Cassidy MD 01/08/2016 Office visit Jessie Mock DECAL MAKER 12/25/2015 Nurse visit Yvonne Cassidy MD 12/09/2015 Nurse visit Yvonne Cassidy MD 12/02/2015 Nurse visit Yvonne Cassidy MD 11/29/2015 Nurse visit Donte Hastings DECAL MAKER 11/28/2015 Nurse visit Jessie Nish DECAL MAKER 11/27/2015 Office visit Jessie Mock DECAL MAKER 11/25/2015 Office visit Donte Darling DECAL MAKER 11/18/2015 Nurse visit Donte Hastings DECAL MAKER 11/11/2015 Nurse visit Jessie Mock DECAL MAKER 11/04/2015 Nurse visit Donte Hastings DECAL MAKER 10/29/2015 Office visit Jessie Mock DECAL MAKER 10/28/2015 Nurse visit Jessie Nish DECAL MAKER 10/21/2015 Nurse visit Glenn Tejeda MD 10/15/2015 Nurse visit Francisco J Jesus DO 10/09/2015 Nurse visit Glenn Tejeda MD 10/02/2015 Office visit April Atkinson DECAL MAKER 10/01/2015 Nurse visit Jessie Mock DECAL MAKER 09/11/2015 Nurse visit Yvonne Cassidy MD [...] Office visit 05/29/2015 Office visit Karolyn Millan DECAL MAKER 05/29/2015 Nurse visit Yvonne Cassidy MD 05/14/2015 Nurse visit Francisco J Jesus DO 05/09/2015 Nurse visit Yvonne Cassidy MD 04/30/2015 Nurse visit Yvonne Cassidy MD 04/23/2015 Nurse visit Yvonne Cassidy MD 04/18/2015 Nurse visit Nidia Darby DECAL MAKER 04/09/2015 Nurse visit Yvonne Cassidy MD 04/01/2015 Nurse visit Yvonne Cassidy MD 03/27/[address] Cody Horvath MD 03/25/2015 [facility] Darin Park MD 03/19/2015 Nurse visit Yvonne Cassidy MD 03/19/2015 Office visit Nidia Darby DECAL MAKER 03/04/2015 Nurse visit Yvonne Cassidy MD [...] Office visit 12/31/2014 Office visit Karolyn Millan DECAL MAKER 12/24/2014 Nurse visit Yvonne Cassidy MD [...] Cassidy MD 10/11/2014 Office visit Karolyn Millan DECAL MAKER 10/09/2014 Nurse visit Yvonne Cassidy MD 10/04/2014 Nurse visit Yvonne Cassidy MD 09/19/2014 Surgery Karolyn Millan DECAL MAKER 09/13/2014 Office visit Yvonne Cassidy MD 09/06/2014 Nurse visit Yvonne Cassidy MD 08/28/2014 [facility] Chauncey Hogan MD 08/28/2014 [facility] Joe Thomas MD 08/23/2014 Nurse visit Yvonne Cassidy MD 08/22/2014 Surgery Joe Thomas MD 08/16/2014 Nurse visit Yvonne Cassidy MD 08/07/2014 Nurse visit Yvonne Cassidy MD 08/01/2014 Nurse visit Jessie Mock DECAL MAKER 07/25/2014 Nurse visit Nidia Darby DECAL MAKER 07/16/2014 Nurse visit Yvonne Cassidy MD [...] Cassidy MD 03/20/2014 Nurse visit Jessie Mock DECAL MAKER 03/13/2014 Nurse visit Donte Hastings DECAL MAKER 03/07/2014 Nurse visit Yvonne Cassidy MD 02/27/2014 Nurse visit Jessie Mokc DECAL MAKER 02/20/2014 Nurse visit Donte Hastings DECAL MAKER 02/13/2014 Nurse visit Donte Hastings DECAL MAKER 02/13/2014 Procedures Joe Thomas MD 02/07/2014 Office visit Joe Thomas MD 02/06/2014 Nurse visit Yvonne Cassidy MD 01/17/2014 Nurse visit Nidia Darby DECAL MAKER 01/10/2014 Nurse visit Yvonne Cassidy MD 01/02/2014 Nurse visit Yvonne Cassidy MD 12/26/2013 Nurse visit Yvonne Cassidy MD 12/18/2013 Nurse visit Yvonne Cassidy MD 12/12/2013 Nurse visit Yvonne Cassidy MD 12/05/2013 Nurse visit Yvonne Cassidy MD 11/28/2013 Nurse visit Yvonne Cassidy MD 11/21/2013 Nurse visit Yvonne Cassidy MD 11/14/2013 Nurse visit Yvonne Cassidy MD 11/07/2013 Nurse visit Nidia Darby DECAL MAKER 10/31/2013 Nurse visit Nidia Darby DECAL MAKER 10/25/2013 Nurse visit Nidia Darby DECAL MAKER 10/18/2013 Voided Nidia Darby DECAL MAKER 10/10/2013 Voided Yvonne Cassidy MD 10/03/2013 Nurse [...] Mart MD 04/18/2013 Nurse visit Nidia Darby DECAL MAKER 04/04/2013 Nurse visit Nidia Darby DECAL MAKER 03/28/2013 Nurse visit Nidia Darby DECAL MAKER 03/21/2013 Nurse visit Nidia Darby DECAL MAKER 03/13/2013 Nurse visit Nidia Darby DECAL MAKER 03/09/2013 Nurse visit Nidia Darby DECAL MAKER 03/02/2013 Nurse visit Nidia Darby DECAL MAKER 02/21/2013 Nurse visit Nidia Darby DECAL MAKER 02/13/2013 Office visit Nidia Darby DECAL MAKER 02/06/2013 Nurse visit Bria Mart MD [...] Mart MD 10/04/2012 Nurse visit Nidia Darby DECAL MAKER 09/27/2012 Nurse visit Bria Mart MD [...] Mart MD 06/07/2012 Nurse visit Nidia Darby DECAL MAKER 06/07/2012 Voided Francisco J Jesus DO 06/01/2012 Office visit Bria Mart MD 05/24/2012 Nurse visit Bria Mart MD 05/17/2012 Nurse visit Bria Mart MD 05/10/2012 Nurse visit Bria Mart MD 05/03/2012 Nurse visit Bria Mart MD 04/26/2012 Nurse visit rBia Mart MD 04/21/2012 Nurse visit Bria Mart [...] Mart MD 09/08/2011 Office visit Jessie Mock DECAL MAKER 09/01/2011 Nurse visit Bria Mart MD [...]
--- OUTSIDE RECORDS SUMMARY | 2017-05-06 20:20 | XMS REPORT ---
Author Author Yvonne Cassidy [facility] Address [address] [place], [place] [address] Care Team Providers Care Land Survey Technician Name Role Phone Yvonne Cassidy PCP Allergies [...] 3mg daily there after, into abdomen, thigh Name Start Date Expiration Date SIG Comments [...] 12:00 AM Depo-Medrol 40 mg [facility]#[id number] Reviewed 03/02/2016 12:00 AM IMMUNOTHERAPY INJECTIONS Reviewed [...] 12:00 AM Depo-Medrol 40 mg [facility]#[id number] Reviewed 12/01/2011 12:00 AM IMMUNOTHERAPY INJECTIONS Reviewed [...] Decadron, Per 1 Mg [facility]# [id number] Reviewed 02/13/2013 12:00 AM Depo-Medrol, Per 80 Mg [facility]#[id number] Reviewed 06/05/2013 12:00 AM MAMMOGRAM SCREENING Returned [...] BILI 0.50 mg/dLCALCIUM 10.10 mg/dLeGFR >60 mL/min/1.73 [id number] 10.0 secsINR 1.0 PTT 28.20 secs 08/28/2014 [...] CVX Influenza 06/02/2010 sanofi pasteur PMC Fluzone [id number] Intramuscular Left Deltoid 06/02/2010 02/25/2010 999 Influenza 05/09/2015 sanofi pasteur PMC Fluzone [id number] Intramuscular Left Deltoid 05/09/2015 02/22/2015 141 History [...] to other allergen Mar 02 2016 4:15PM Payers Insurance Name Company Name Plan Name Plan Number Policy Number Policy Group Number [id number] Self [facility] Fund *INVALID State Self Insurance [id number] N/A [place] [id number] Wednesday, 2015 History of Encounters Visit Date Visit Type Provider 03/02/2016 Nurse visit Yvonne Cassidy MD 02/19/2016 Nurse visit Yvonne Cassidy MD 02/12/2016 Office visit Jessie Mock QUILL PICKING MACHINE OPERATOR 02/03/2016 Nurse visit Yvonne Cassidy MD 01/27/2016 Nurse visit Yvonne Cassidy MD 01/15/2016 Nurse visit Yvonne Cassidy MD 01/08/2016 Office visit Jessie Mock QUILL PICKING MACHINE OPERATOR 12/25/2015 Nurse visit Yvonne Cassidy MD 12/09/2015 Nurse visit Yvonne Cassidy MD 12/02/2015 Nurse visit Yvonne Cassidy MD 11/29/2015 Nurse visit Donte Hastings APRN 11/28/2015 Nurse visit Jessie Mock QUILL PICKING MACHINE OPERATOR 11/27/2015 Office visit Jessie Mock QUILL PICKING MACHINE OPERATOR 11/25/2015 Office visit Donte Hastings QUILL PICKING MACHINE OPERATOR 11/18/2015 Nurse visit Donte Hastings QUILL PICKING MACHINE OPERATOR 11/11/2015 Nurse visit Jessie Mock QUILL PICKING MACHINE OPERATOR 11/04/2015 Nurse visit Donte Hastings QUILL PICKING MACHINE OPERATOR 10/29/2015 Office visit Jessie Mock QUILL PICKING MACHINE OPERATOR 10/28/2015 Nurse visit Jessie Mock QUILL PICKING MACHINE OPERATOR 10/21/2015 Nurse visit Glenn Tejeda MD 10/15/2015 Nurse visit Francisco J Jesus DO 10/09/2015 Nurse visit Glenn Tejeda MD 10/02/2015 Office visit April Atkinson QUILL PICKING MACHINE OPERATOR 10/01/2015 Nurse visit Jessie Mock QUILL PICKING MACHINE OPERATOR 09/11/2015 Nurse visit Yvonne Cassidy [...] Office visit 05/29/2015 Office visit Karolyn Millan QUILL PICKING MACHINE OPERATOR 05/29/2015 Nurse visit Yvonne Cassidy MD 05/14/2015 Nurse visit Francisco J Jesus DO 05/09/2015 Nurse visit Yvonne Cassidy MD 04/30/2015 Nurse visit Yvonne Cassidy MD 04/23/2015 Nurse visit Yvonne Cassidy MD 04/18/2015 Nurse visit Nidia Darby QUILL PICKING MACHINE OPERATOR 04/09/2015 Nurse visit Yvonne Cassidy MD 04/01/2015 Nurse visit Yvonne Cassidy MD 03/27/[address] Cody Horvath MD 03/25/2015 [facility] Alexander Park MD 03/19/2015 Nurse visit Yvonne Cassidy MD 03/19/2015 Office visit Nidia Darby QUILL PICKING MACHINE OPERATOR 03/04/2015 Nurse visit Yvonne Cassidy [...] Office visit 12/31/2014 Office visit Karolyn Millan QUILL PICKING MACHINE OPERATOR 12/24/2014 Nurse visit Yvonne Cassidy MD 12/17/2014 Nurse visit Yvonne Cassidy MD 12/13/2014 Nurse visit Yvonne Cassidy MD 11/28/2014 Nurse visit Yvonne Cassidy MD 11/19/2014 Nurse visit Yvonne Cassidy MD 11/12/2014 Nurse visit Yvonne Cassidy MD 11/05/2014 Nurse visit Yvonne Cassidy MD 11/05/2014 [facility] Alexander Park MD 10/29/2014 Nurse visit Yvonne Cassidy MD 10/24/2014 Nurse visit Yvonne Cassidy MD 10/15/2014 Nurse visit Yvonne Cassidy MD 10/11/2014 Office visit Karolyn Millan QUILL PICKING MACHINE OPERATOR 10/09/2014 Nurse visit Yvonne Cassidy MD 10/04/2014 Nurse visit Yvonne Cassidy MD 09/19/2014 Surgery Karolyn Millan QUILL PICKING MACHINE OPERATOR 09/13/2014 Office visit Yvonne Cassidy MD 09/06/2014 Nurse visit Yvonne Cassidy MD 08/28/2014 [facility] Chauncey Hogan MD 08/28/2014 [facility] Joe Thomas MD 08/23/2014 Nurse visit Yvonne Cassidy MD 08/22/2014 Surgery Joe Thomas MD 08/16/2014 Nurse visit Yvonne Cassidy MD 08/07/2014 Nurse visit Yvonne Cassidy MD 08/01/2014 Nurse visit Jessie Mock QUILL PICKING MACHINE OPERATOR 07/25/2014 Nurse visit Nidia Darby QUILL PICKING MACHINE OPERATOR 07/16/2014 Nurse visit Yvonne Cassidy [...] Cassidy MD 03/20/2014 Nurse visit Jessie Mock QUILL PICKING MACHINE OPERATOR 03/13/2014 Nurse visit Donte Hastings QUILL PICKING MACHINE OPERATOR 03/07/2014 Nurse visit Yvonne Cassidy MD 02/27/2014 Nurse visit Jessie Mock QUILL PICKING MACHINE OPERATOR 02/20/2014 Nurse visit Donte Hastings QUILL PICKING MACHINE OPERATOR 02/13/2014 Nurse visit Donte Hastings QUILL PICKING MACHINE OPERATOR 02/13/2014 Procedures Joe Thomas MD 02/07/2014 Office visit Joe Thomas MD 02/06/2014 Nurse visit Yvonne Cassidy MD 01/17/2014 Nurse visit Nidia Darby QUILL PICKING MACHINE OPERATOR 01/10/2014 Nurse visit Yvonne Cassidy MD 01/02/2014 Nurse visit Yvonne Cassidy MD 12/26/2013 Nurse visit Yvonne Cassidy MD 12/18/2013 Nurse visit Yvonne Cassidy MD 12/12/2013 Nurse visit Yvonne Cassidy MD 12/05/2013 Nurse visit Yvonne Cassidy MD 11/28/2013 Nurse visit Yvonne Cassidy MD 11/21/2013 Nurse visit Yvonne Cassidy MD 11/14/2013 Nurse visit Yvonne Cassidy MD 11/07/2013 Nurse visit Nidia Darby QUILL PICKING MACHINE OPERATOR 10/31/2013 Nurse visit Nidia Darby QUILL PICKING MACHINE OPERATOR 10/25/2013 Nurse visit Nidia Darby QUILL PICKING MACHINE OPERATOR 10/18/2013 Voided Nidia Darby QUILL PICKING MACHINE OPERATOR 10/10/2013 Voided Yvonne Cassidy MD [...] Mart MD 04/18/2013 Nurse visit Nidia Darby QUILL PICKING MACHINE OPERATOR 04/04/2013 Nurse visit Nidia Darby QUILL PICKING MACHINE OPERATOR 03/28/2013 Nurse visit Nidia Darby QUILL PICKING MACHINE OPERATOR 03/21/2013 Nurse visit Nidia Darby QUILL PICKING MACHINE OPERATOR 03/13/2013 Nurse visit Nidia Darby QUILL PICKING MACHINE OPERATOR 03/09/2013 Nurse visit Nidia Darby QUILL PICKING MACHINE OPERATOR 03/02/2013 Nurse visit Nidia Darby QUILL PICKING MACHINE OPERATOR 02/21/2013 Nurse visit Nidia Darby QUILL PICKING MACHINE OPERATOR 02/13/2013 Office visit Nidia Darby QUILL PICKING MACHINE OPERATOR 02/06/2013 Nurse visit Bria Mart MD 01/31/2013 Nurse visit Bria Mart MD 01/24/2013 Nurse visit Bria Mart MD 01/17/2013 Nurse visit Bria Mart MD 01/10/2013 Nurse visit Bria Mrat MD 01/02/2013 Nurse visit Bria Mart MD [...] Mart MD 10/04/2012 Nurse visit Nidia Darby QUILL PICKING MACHINE OPERATOR 09/27/2012 Nurse visit Bria Mart [...] Mart MD 06/07/2012 Nurse visit Nidia Darby QUILL PICKING MACHINE OPERATOR 06/07/2012 Voided Francisco J Jesus [...] Mart MD 09/08/2011 Office visit Jessie Mock QUILL PICKING MACHINE OPERATOR 09/01/2011 Nurse visit Bria Mart [...]
--- OUTSIDE RECORDS SUMMARY | 2017-05-06 20:24 | XMS REPORT ---
Author Author Jessie Mock [facility] Address [address] [place], [place] [address] Care Team Providers Care Command Center Analyst Name Role Phone Jessie Mock PCP Unavailable [...] Reviewed 10/28/2015 12:00 AM IMMUNOTHERAPY INJECTIONS Reviewed 07/07/2011 12:00 [...] AM Depo-Medrol [address] [facility]#[id number] Reviewed 09/08/2011 12:00 AM IMMUNOTHERAPY INJECTIONS Reviewed [...] AM Depo-Medrol [address] [facility]#[id number] Reviewed 12/01/2011 12:00 AM IMMUNOTHERAPY INJECTIONS Reviewed [...] Per [address] [facility]# [address]-05 Reviewed 02/13/2013 12:00 AM Depo-Medrol, Per [address] [facility]#7668-5157-96 Reviewed 06/05/2013 12:00 AM MAMMOGRAM SCREENING Returned [...] BILI 0.50 mg/dLCALCIUM 10.10 mg/dLeGFR >60 mL/min/1.73 [id number] 10.0 secsINR 1.0 PTT 28.20 secs 08/28/2014 [...] CVX Influenza 06/02/2010 sanofi pasteur PMC Fluzone [id number] Intramuscular Left Deltoid 06/02/2010 02/25/2010 999 Influenza 05/09/2015 sanofi pasteur PMC Fluzone [id number] Intramuscular Left Deltoid 05/09/2015 02/22/2015 141 History [...] 3:45PM BMI 38.0-38.9,adult Oct 29 2015 3:45PM Payers Insurance Name Company Name Plan Name Plan Number Policy Number Policy Group Number Start Date BCBS [employer] [place] [id number] June [facility] Self Insurance Fund *INVALID [facility] Self Insurance [id number] N/A History of Encounters Visit Date Visit Type Provider 10/29/2015 Office visit Jessie Mock SCHOOL SERVICES OFFICER 10/28/2015 Nurse visit Jessie Mock SCHOOL SERVICES OFFICER 10/21/2015 Nurse visit Glenn Tejeda MD 10/15/2015 Nurse visit Francisco J Jesus DO 10/09/2015 Nurse visit Glenn Tejeda MD 10/02/2015 Office visit April Atkinson SCHOOL SERVICES OFFICER 10/01/2015 Nurse visit Jessie Mock SCHOOL SERVICES OFFICER 09/11/2015 Nurse visit Yvonne Cassidy MD 09/05/2015 [...] Office visit 05/29/2015 Office visit Karolyn Millan SCHOOL SERVICES OFFICER 05/29/2015 Nurse visit Yvonne Cassidy MD 05/14/2015 Nurse visit Francisco J Jesus DO 05/09/2015 Nurse visit Yvonne Cassidy MD 04/30/2015 Nurse visit Yvonne Cassidy MD 04/23/2015 Nurse visit Yvonne Cassidy MD 04/18/2015 Nurse visit Ndiia Darby SCHOOL SERVICES OFFICER 04/09/2015 Nurse visit Yvonne Cassidy MD 04/01/2015 Nurse visit Yvonne Cassidy MD 03/27/[address] Cody Horvath MD 03/25/2015 [facility] Darin Park MD 03/19/2015 Nurse visit Yvonne Cassidy MD 03/19/2015 Office visit Nidia Darby SCHOOL SERVICES OFFICER 03/04/2015 Nurse visit Yvonne Cassidy MD 02/25/2015 [...] Office visit 12/31/2014 Office visit Karolyn Millan SCHOOL SERVICES OFFICER 12/24/2014 Nurse visit Yvonne Cassidy MD 12/17/2014 [...] Cassidy MD 10/11/2014 Office visit Karolyn Millan SCHOOL SERVICES OFFICER 10/09/2014 Nurse visit Yvonne Cassidy MD 10/04/2014 Nurse visit Yvonne Cassidy MD 09/19/2014 Surgery Karolyn Millan SCHOOL SERVICES OFFICER 09/13/2014 Office visit Yvonne Cassidy MD 09/06/2014 Nurse visit Yvonne Cassidy MD 08/28/2014 [facility] Chauncey Hogan MD 08/28/2014 [facility] Joe Thomas MD 08/23/2014 Nurse visit Yvonne Cassidy MD 08/22/2014 Surgery Joe Thomas MD 08/16/2014 Nurse visit Yvonne Cassidy MD 08/07/2014 Nurse visit Yvonne Cassidy MD 08/01/2014 Nurse visit Jessie Mock SCHOOL SERVICES OFFICER 07/25/2014 Nurse visit Nidia Darby SCHOOL SERVICES OFFICER 07/16/2014 Nurse visit Yvonne Cassidy MD 07/09/2014 [...] Cassidy MD 03/20/2014 Nurse visit Jessie Mock SCHOOL SERVICES OFFICER 03/13/2014 Nurse visit Donte Hastings SCHOOL SERVICES OFFICER 03/07/2014 Nurse visit Yvonne Cassidy MD 02/27/2014 Nurse visit Jessie Mock SCHOOL SERVICES OFFICER 02/20/2014 Nurse visit Donte Hastings SCHOOL SERVICES OFFICER 02/13/2014 Nurse visit Donte Hastings SCHOOL SERVICES OFFICER 02/13/2014 Procedures Joe Thomas MD 02/07/2014 Office visit Joe Thomas MD 02/06/2014 Nurse visit Yvonne Cassidy MD 01/17/2014 Nurse visit Nidia Darby SCHOOL SERVICES OFFICER 01/10/2014 Nurse visit Yvonne Cassidy MD 01/02/2014 Nurse visit Yvonne Cassidy MD 12/26/2013 Nurse visit Yvonne Cassidy MD 12/18/2013 Nurse visit Yvonne Cassidy MD 12/12/2013 Nurse visit Yvonne Cassidy MD 12/05/2013 Nurse visit Yvonne Cassidy MD 11/28/2013 Nurse visit Yvonne Cassidy MD 11/21/2013 Nurse visit Yvonne Cassidy MD 11/14/2013 Nurse visit Yvonne Cassidy MD 11/07/2013 Nurse visit Nidia Darby SCHOOL SERVICES OFFICER 10/31/2013 Nurse visit Nidia Darby SCHOOL SERVICES OFFICER 10/25/2013 Nurse visit Nidia Darby SCHOOL SERVICES OFFICER 10/18/2013 Voided Nidia Darby SCHOOL SERVICES OFFICER 10/10/2013 Voided Yvonne Cassidy MD 10/03/2013 Nurse [...] Mart MD 04/18/2013 Nurse visit Nidia Darby SCHOOL SERVICES OFFICER 04/04/2013 Nurse visit Nidia Darby SCHOOL SERVICES OFFICER 03/28/2013 Nurse visit Nidia Darby SCHOOL SERVICES OFFICER 03/21/2013 Nurse visit Nidia Darby SCHOOL SERVICES OFFICER 03/13/2013 Nurse visit Nidia Darby SCHOOL SERVICES OFFICER 03/09/2013 Nurse visit Nidia Darby SCHOOL SERVICES OFFICER 03/02/2013 Nurse visit Nidia GonzalesZafar Wilner SCHOOL SERVICES OFFICER 02/21/2013 Nurse visit Nidia GonzalesZafar Wilner SCHOOL SERVICES OFFICER 02/13/2013 Office visit Nidia Sheridan Darby SCHOOL SERVICES OFFICER 02/06/2013 Nurse visit Bria Mart MD 01/31/2013 [...] MD 10/04/2012 Nurse visit Nidia Sheridan Darby SCHOOL SERVICES OFFICER 09/27/2012 Nurse visit Bria Mart MD 09/22/2012 [...] Mart MD 06/07/2012 Nurse visit Nidia Darby SCHOOL SERVICES OFFICER 06/07/2012 Voided Francisco J Jesus DO 06/01/2012 [...] Bria Mart MD 11/27/2011 Office visit Bria Mrat MD 11/26/2011 Nurse visit Bria Mart MD [...] Mart MD 09/08/2011 Office visit Jessie Mock SCHOOL SERVICES OFFICER 09/01/2011 Nurse visit Bria Mart MD 08/21/2011 [...]
--- OUTSIDE RECORDS SUMMARY | 2017-05-06 20:28 | XMS REPORT ---
Author Author Jessie Mock [facility] Address [address] [place], [place] [id number] Care Team Providers Care Share Holder Name Role Phone Jessie Mock PCP Unavailable [...] Reviewed 08/21/2011 12:00 AM Depo-Medrol 40 mg [facility]#[id number] Reviewed 09/08/2011 12:00 AM IMMUNOTHERAPY INJECTIONS Reviewed [...] Reviewed 11/27/2011 12:00 AM Depo-Medrol 40 mg [facility]#[id number] Reviewed 12/01/2011 12:00 AM IMMUNOTHERAPY INJECTIONS Reviewed [...] Per 1 Mg [facility]# [id number] Reviewed 02/13/2013 12:00 AM Depo-Medrol, Per 80 Mg [facility]#[id number] Reviewed 06/05/2013 12:00 AM MAMMOGRAM SCREENING Returned [...] BILI 0.50 mg/dLCALCIUM 10.10 mg/dLeGFR >60 mL/min/1.73 [id number] 10.0 secsINR 1.0 PTT 28.20 secs 08/28/2014 [...] CVX Influenza 06/02/2010 sanofi pasteur PMC Fluzone [id number] Intramuscular Left Deltoid 06/02/2010 02/25/2010 999 Influenza 05/09/2015 sanofi pasteur PMC Fluzone [id number] Intramuscular Left Deltoid 05/09/2015 02/22/2015 141 History [...] to other allergen Oct 28 2015 4:42PM Payers Insurance Name Company Name Plan Name Plan Number Policy Number Policy Group Number Start Date [employer] [id number] June [facility] Self Insurance Fund *INVALID State Self Insurance [id number] N/A History of Encounters Visit Date Visit Type Provider 10/28/2015 Nurse visit Jessie Mock GIFT BASKET PACKER 10/21/2015 Nurse visit Glenn Tejeda MD 10/15/2015 Nurse visit Francisco J Jesus DO 10/09/2015 Nurse visit Glenn Tejeda MD 10/02/2015 Office visit April Atkinson GIFT BASKET PACKER 10/01/2015 Nurse visit Jessie Mock GIFT BASKET PACKER 09/11/2015 Nurse visit Yvonne Cassidy MD 09/05/2015 [...] Office visit 05/29/2015 Office visit Karolyn Millan GIFT BASKET PACKER 05/29/2015 Nurse visit Yvonne Cassidy MD 05/14/2015 Nurse visit Francisco J Jesus DO 05/09/2015 Nurse visit Yvonne Cassidy MD 04/30/2015 Nurse visit Yvonne Cassidy MD 04/23/2015 Nurse visit Yvonne Cassidy MD 04/18/2015 Nurse visit Nidia Darby GIFT BASKET PACKER 04/09/2015 Nurse visit Yvonne Cassidy MD 04/01/2015 Nurse visit Yvonne Cassidy MD 03/27/[address] Cody Horvath MD 03/25/2015 [facility] Alexander Park MD 03/19/2015 Nurse visit Yvonne Cassidy MD 03/19/2015 Office visit Nidia Darby GIFT BASKET PACKER 03/04/2015 Nurse visit Yvonne Cassidy MD 02/25/2015 [...] Office visit 12/31/2014 Office visit Karolyn Millan GIFT BASKET PACKER 12/24/2014 Nurse visit Yvonne Cassidy MD 12/17/2014 [...] Cassidy MD 10/11/2014 Office visit Karolyn Millan GIFT BASKET PACKER 10/09/2014 Nurse visit Yvonne Cassidy MD 10/04/2014 Nurse visit Yvonne Cassidy MD 09/19/2014 Surgery Karolyn Millan GIFT BASKET PACKER 09/13/2014 Office visit Yvonne Cassidy MD 09/06/2014 Nurse visit Yvonne Cassidy MD 08/28/2014 [facility] Chauncey Hogan MD 08/28/2014 [facility] Joe Thomas MD 08/23/2014 Nurse visit Yvonne Cassidy MD 08/22/2014 Surgery Joe Thomas MD 08/16/2014 Nurse visit Yvonne Cassidy MD 08/07/2014 Nurse visit Yvonne Cassidy MD 08/01/2014 Nurse visit Jessie Mock GIFT BASKET PACKER 07/25/2014 Nurse visit Nidia Darby GIFT BASKET PACKER 07/16/2014 Nurse visit Yvonne Cassidy MD 07/09/2014 [...] Cassidy MD 03/20/2014 Nurse visit Jessie Mock GIFT BASKET PACKER 03/13/2014 Nurse visit Donte Hastings GIFT BASKET PACKER 03/07/2014 Nurse visit Yvonne Cassidy MD 02/27/2014 Nurse visit Jessie Mock GIFT BASKET PACKER 02/20/2014 Nurse visit Donte Hastings GIFT BASKET PACKER 02/13/2014 Nurse visit Donte Hastings GIFT BASKET PACKER 02/13/2014 Procedures Joe Thomas MD 02/07/2014 Office visit Joe Thomas MD 02/06/2014 Nurse visit Yvonne Cassidy MD 01/17/2014 Nurse visit Nidia Darby GIFT BASKET PACKER 01/10/2014 Nurse visit Yvonne Cassidy MD 01/02/2014 Nurse visit Yvonne Cassidy MD 12/26/2013 Nurse visit Yvonne Cassidy MD 12/18/2013 Nurse visit Yvonne Cassidy MD 12/12/2013 Nurse visit Yvonne Cassidy MD 12/05/2013 Nurse visit Yvonne Cassidy MD 11/28/2013 Nurse visit Yvonne Cassidy MD 11/21/2013 Nurse visit Yvonne Cassidy MD 11/14/2013 Nurse visit Yvonne Cassidy MD 11/07/2013 Nurse visit Nidia Darby GIFT BASKET PACKER 10/31/2013 Nurse visit Nidia Darby GIFT BASKET PACKER 10/25/2013 Nurse visit Nidia Darby GIFT BASKET PACKER 10/18/2013 Voided Nidia Darby GIFT BASKET PACKER 10/10/2013 Voided Yvonne Cassidy MD 10/03/2013 Nurse [...] Mart MD 04/18/2013 Nurse visit Nidia Darby GIFT BASKET PACKER 04/04/2013 Nurse visit Nidia Darby GIFT BASKET PACKER 03/28/2013 Nurse visit Nidia Darby GIFT BASKET PACKER 03/21/2013 Nurse visit Nidia Darby GIFT BASKET PACKER 03/13/2013 Nurse visit Nidia Darby GIFT BASKET PACKER 03/09/2013 Nurse visit Nidia Darby GIFT BASKET PACKER 03/02/2013 Nurse visit Nidia Darby GIFT BASKET PACKER 02/21/2013 Nurse visit Nidia Darby GIFT BASKET PACKER 02/13/2013 Office visit Nidia Darby GIFT BASKET PACKER 02/06/2013 Nurse visit Bria Mart MD 01/31/2013 [...] Mart MD 10/04/2012 Nurse visit Nidia Darby GIFT BASKET PACKER 09/27/2012 Nurse visit Bria Mart MD 09/22/2012 [...] Mart MD 06/07/2012 Nurse visit Nidia Darby GIFT BASKET PACKER 06/07/2012 Voided Francisco J Jesus DO 06/01/2012 [...] Bria Mart MD 02/15/2012 Nurse visit Bria aMrt MD 02/08/2012 Nurse visit Bria Mart MD [...] Mart MD 09/08/2011 Office visit Jessie Mock GIFT BASKET PACKER 09/01/2011 Nurse visit Bria Mart MD 08/21/2011 [...] Bria Mart MD 12/30/2010 Office visit Bria Mrat MD 11/12/2010 Office visit Bria Mart MD 06/03/2010 Office visit Bria Mart MD 05/26/2010 Office visit Bria Mart MD 11/07/2009 Office visit Bria Mart MD 05/29/2009 Office visit Marium GOLDEN
--- OUTSIDE RECORDS SUMMARY | 2017-05-06 20:31 | XMS REPORT ---
Author Author Yvonne Cassidy Organization [facility] Address [address] [place], [place] [id number] Care Team Providers Care School Library Media Program Director Name Role Phone Yvonne Cassidy PCP [...] AM Depo-Medrol 40 mg [facility]#[id number] Reviewed 09/08/2011 12:00 AM IMMUNOTHERAPY INJECTIONS Reviewed [...] AM Depo-Medrol 40 mg [facility]#[id number] Reviewed 12/01/2011 12:00 AM IMMUNOTHERAPY INJECTIONS Reviewed 12/08/2011 12:00 AM IMMUNOTHERAPY INJECTIONS Reviewed 12/18/2011 12:00 AM IMMUNOTHERAPY INJECTIONS Reviewed 12/22/2011 12:00 AM IMMUNOTHERAPY INJECTIONS Reviewed 12/29/2011 12:00 AM IMMUNOTHERAPY INJECTIONS Reviewed 01/05/2012 12:00 AM IMMUNOTHERAPY INJECTIONS Ordered 01/05/2012 12:00 AM THER/PROPH/DIAG INJ SC/IM Ordered 01/12/2012 12:00 AM IMMUNOTHERAPY INJECTIONS Reviewed 01/26/2012 [...] Reviewed 09/22/2012 12:00 AM IMMUNOTHERAPY INJECTIONS Reviewed 09/30/2012 12:00 AM IMMUNOTHERAPY INJECTIONS Ordered 10/04/2012 12:00 AM IMMUNOTHERAPY INJECTIONS Ordered 10/11/2012 12:00 AM IMMUNOTHERAPY INJECTIONS Ordered 10/17/2012 12:00 AM IMMUNOTHERAPY INJECTIONS Ordered 10/18/2012 12:00 AM IMMUNOTHERAPY INJECTIONS Ordered 10/25/2012 12:00 AM IMMUNOTHERAPY INJECTIONS Ordered 11/01/2012 12:00 AM IMMUNOTHERAPY INJECTIONS Ordered 11/08/2012 12:00 AM IMMUNOTHERAPY INJECTIONS Ordered 11/15/2012 12:00 AM IMMUNOTHERAPY INJECTIONS Ordered 11/22/2012 12:00 AM IMMUNOTHERAPY INJECTIONS Ordered 12/06/2012 12:00 AM IMMUNOTHERAPY INJECTIONS Ordered 12/06/2012 12:00 AM IMMUNOTHERAPY INJECTIONS Ordered 12/20/2012 12:00 AM IMMUNOTHERAPY INJECTIONS Ordered 12/20/2012 12:00 AM IMMUNOTHERAPY INJECTIONS Ordered 11/07/2009 12:00 AM LIPID PANEL Reviewed 11/07/2009 12:00 AM ASSAY THYROID STIM HORMONE Reviewed 11/07/2009 12:00 AM COMPLETE CBC W/AUTO DIFF WBC Reviewed 11/07/2009 12:00 AM COMPREHEN METABOLIC PANEL Reviewed 11/07/2009 12:00 AM CYTOPATH C/V MANUAL Reviewed 01/12/2013 12:00 AM IMMUNOTHERAPY INJECTIONS Ordered 01/17/2013 12:00 AM IMMUNOTHERAPY INJECTIONS Ordered 01/24/2013 12:00 AM IMMUNOTHERAPY INJECTIONS Ordered 01/31/2013 12:00 AM IMMUNOTHERAPY INJECTIONS Ordered 02/06/2013 12:00 AM IMMUNOTHERAPY INJECTIONS Ordered 02/13/2013 12:00 AM THER/PROPH/DIAG INJ SC/IM Reviewed 02/13/2013 12:00 AM Decadron, Per 1 Mg [facility]# [address]-71 Reviewed 02/13/2013 12:00 AM Depo-Medrol, Per 80 Mg [facility]#9633-1122-15 Reviewed 02/21/2013 12:00 AM IMMUNOTHERAPY INJECTIONS Ordered 03/02/2013 12:00 AM IMMUNOTHERAPY INJECTIONS Ordered 03/07/2013 12:00 AM IMMUNOTHERAPY INJECTIONS Ordered 03/09/2013 12:00 AM IMMUNOTHERAPY INJECTIONS Ordered 03/13/2013 12:00 AM IMMUNOTHERAPY INJECTIONS Ordered 03/21/2013 12:00 AM IMMUNOTHERAPY INJECTIONS Ordered 03/28/2013 12:00 AM IMMUNOTHERAPY INJECTIONS Ordered 04/04/2013 12:00 AM IMMUNOTHERAPY INJECTIONS Ordered 04/18/2013 12:00 AM IMMUNOTHERAPY INJECTIONS Ordered 05/01/2013 12:00 AM IMMUNOTHERAPY INJECTIONS Ordered 05/09/2013 12:00 AM IMMUNOTHERAPY INJECTIONS Ordered 05/15/2013 12:00 AM IMMUNOTHERAPY INJECTIONS Ordered 06/05/2013 12:00 AM MAMMOGRAM SCREENING Returned 05/18/2013 [...] Returned 05/18/2013 12:00 AM MAMMOGRAM SCREENING Returned 05/23/2013 12:00 AM IMMUNOTHERAPY INJECTIONS Ordered 05/30/2013 12:00 AM IMMUNOTHERAPY INJECTIONS Ordered 06/01/2013 12:00 AM INSERT PESSARY/OTHER DEVICE Reviewed 06/01/2013 12:00 AM PESSARY, NON RUBBER, ANY TYPE Reviewed 06/07/2013 12:00 AM IMMUNOTHERAPY INJECTIONS Ordered 06/14/2013 12:00 AM METABOLIC PANEL TOTAL CA [...] INJECTION Reviewed 02/27/2014 12:00 AM IMMUNOTHERAPY INJECTIONS Ordered 03/13/2014 12:00 AM IMMUNOTHERAPY INJECTIONS Reviewed 03/20/2014 [...] Returned 07/25/2014 12:00 AM IMMUNOTHERAPY INJECTIONS Returned 08/01/2014 12:00 AM IMMUNOTHERAPY INJECTIONS Ordered 08/07/2014 12:00 AM IMMUNOTHERAPY INJECTIONS Returned 08/16/2014 [...] INJECTIONS Reviewed 10/15/2014 12:00 AM IMMUNOTHERAPY INJECTIONS Ordered 10/24/2014 12:00 AM IMMUNOTHERAPY INJECTIONS Reviewed 08/23/2014 12:00 AM IMMUNOTHERAPY INJECTIONS Ordered 09/06/2014 12:00 AM IMMUNOTHERAPY INJECTIONS Ordered 10/29/2014 12:00 AM IMMUNOTHERAPY INJECTIONS Ordered 11/05/2014 12:00 AM IMMUNOTHERAPY INJECTIONS Ordered 11/12/2014 12:00 AM IMMUNOTHERAPY INJECTIONS Ordered 11/19/2014 12:00 AM IMMUNOTHERAPY INJECTIONS Ordered 12/30/2010 12:00 AM THER/PROPH/DIAG INJ SC/IM Reviewed 12/30/2010 12:00 AM Depo-Medrol 120 Mg Im ILEANA Reviewed 11/28/2014 12:00 AM IMMUNOTHERAPY INJECTIONS Ordered 12/13/2014 12:00 AM IMMUNOTHERAPY INJECTIONS Ordered 12/17/2014 12:00 AM IMMUNOTHERAPY INJECTIONS Ordered 12/24/2014 12:00 AM IMMUNOTHERAPY INJECTIONS Ordered 12/31/2014 12:00 AM IMMUNOTHERAPY INJECTIONS Ordered 12/31/2014 12:00 AM MAMMOGRAM BOTH BREASTS Returned 12/31/2014 12:00 AM Breast ultrasonography Ordered 12/31/2014 12:00 AM Breast ultrasound Returned 12/31/2014 12:00 AM COMPUTER DX MAMMOGRAM ADD-ON Ordered 01/07/2015 12:00 AM IMMUNOTHERAPY INJECTIONS Ordered 01/15/2015 12:00 AM IMMUNOTHERAPY INJECTIONS Ordered 01/21/2015 12:00 AM IMMUNOTHERAPY INJECTIONS Ordered 01/28/2015 12:00 AM IMMUNOTHERAPY INJECTIONS Ordered 02/04/2015 12:00 AM IMMUNOTHERAPY INJECTIONS Ordered 02/11/2015 12:00 AM IMMUNOTHERAPY INJECTIONS Reviewed 02/11/2015 12:00 AM IMMUNOTHERAPY ONE INJECTION Reviewed 02/18/2015 12:00 AM IMMUNOTHERAPY INJECTIONS Ordered 02/25/2015 12:00 AM IMMUNOTHERAPY INJECTIONS Ordered 03/04/2015 12:00 AM IMMUNOTHERAPY INJECTIONS Ordered Results Summary Data and Description Results 11/07/2009 [...] BILI 0.50 mg/dLCALCIUM 10.10 mg/dLeGFR >60 mL/min/1.73 [id number] 10.0 secsINR 1.0 PTT 28.20 secs 08/28/2014 [...] CVX Influenza 06/02/2010 sanofi pasteur PMC Fluzone [id number] Intramuscular Left Deltoid 06/02/2010 02/25/2010 999 History [...] to other allergen Mar 04 2015 4:13PM Payers Insurance Name Company Name Plan Name Plan Number Policy Number Policy Group Number [facility] Date [facility] [id number] [place] *[place] Self Insurance [id number] N /A History of Encounters Visit Date Visit Type Provider 03/04/2015 Nurse visit Yvonne Cassidy MD 02/25/2015 Nurse visit Yvonne Cassidy MD 02/18/2015 Nurse visit Yvonne Cassidy MD 02/11/2015 Nurse visit Yvonne Cassidy MD 02/04/2015 Nurse visit Yvonne Cassidy MD 01/28/2015 Nurse visit Yvonne Cassidy MD 01/21/2015 Nurse visit Yvonne Cassidy MD 01/15/2015 Nurse visit Yvonne Cassidy MD 01/07/2015 Nurse visit Yvonne Cassidy MD 12/31/2014 Office visit Karolyn Millan INSOLE LIP TURNER 12/31/2014 Nurse visit Yvonne Cassidy MD 12/24/2014 [...] Cassidy MD 10/11/2014 Office visit Karolyn Millan INSOLE LIP TURNER 10/09/2014 Nurse visit Yvonne Cassidy MD 10/04/2014 Nurse visit Yvonne Cassidy MD 09/19/2014 Surgery Karolyn Millan INSOLE LIP TURNER 09/13/2014 Office visit Yvonne Cassidy MD 09/06/2014 Nurse visit Yvonne Cassidy MD 08/28/2014 [facility] Joe Thomas MD 08/28/2014 Hospital Chauncey Hogan MD 08/23/2014 Nurse visit Yvonne Cassidy MD 08/22/2014 Surgery Joe Thomas MD 08/16/2014 Nurse visit Yvonne Cassidy MD 08/07/2014 Nurse visit Yvonne Cassidy MD 08/01/2014 Nurse visit Jessie Mock INSOLE LIP TURNER 07/25/2014 Nurse visit Nidia Darby INSOLE LIP TURNER 07/16/2014 Nurse visit Yvonne Cassidy MD 07/09/2014 [...] Cassidy MD 03/20/2014 Nurse visit Jessie Mock INSOLE LIP TURNER 03/13/2014 Nurse visit Donte Hastings INSOLE LIP TURNER 03/07/2014 Nurse visit Yvonne Cassidy MD 02/27/2014 Nurse visit Jessie Mock INSOLE LIP TURNER 02/20/2014 Nurse visit Donte Hastings INSOLE LIP TURNER 02/13/2014 Procedures Joe Thomas MD 02/13/2014 Nurse visit Donte Hastings INSOLE LIP TURNER 02/07/2014 Office visit Joe Thomas MD 02/06/2014 Nurse visit Yvonne Cassidy MD 01/17/2014 Nurse visit Nidia Darby INSOLE LIP TURNER 01/10/2014 Nurse visit Yvonne Cassidy MD 01/02/2014 Nurse visit Yvonne Cassidy MD 12/26/2013 Nurse visit Yvonne Cassidy MD 12/18/2013 Nurse visit Yvonne Cassidy MD 12/12/2013 Nurse visit Yvonne Cassidy MD 12/05/2013 Nurse visit Yvonne Cassidy MD 11/28/2013 Nurse visit Yvonne Cassidy MD 11/21/2013 Nurse visit Yvonne Cassidy MD 11/14/2013 Nurse visit Yvonne Cassidy MD 11/07/2013 Nurse visit Nidia Darby INSOLE LIP TURNER 10/31/2013 Nurse visit Nidia Darby INSOLE LIP TURNER 10/25/2013 Nurse visit Nidia Darby INSOLE LIP TURNER 10/18/2013 Voided Nidia Darby INSOLE LIP TURNER 10/10/2013 Voided Yvonne Cassidy MD 10/03/2013 Nurse [...] Mart MD 04/18/2013 Nurse visit Nidia Darby INSOLE LIP TURNER 04/04/2013 Nurse visit Nidia Darby INSOLE LIP TURNER 03/28/2013 Nurse visit Nidia Darby INSOLE LIP TURNER 03/21/2013 Nurse visit Nidia Darby INSOLE LIP TURNER 03/13/2013 Nurse visit Nidia Darby INSOLE LIP TURNER 03/09/2013 Nurse visit Nidia Darby INSOLE LIP TURNER 03/02/2013 Nurse visit Nidia Darby INSOLE LIP TURNER 02/21/2013 Nurse visit Nidia Darby INSOLE LIP TURNER 02/13/2013 Office visit Nidia NZafar Darby INSOLE LIP TURNER 02/06/2013 Nurse visit Bria Mart MD 01/31/2013 [...] MD 10/04/2012 Nurse visit Nidia Sheridan Darby INSOLE LIP TURNER 09/27/2012 Nurse visit Bria Mart MD 09/22/2012 [...] J Jesus 06/07/2012 Nurse visit Nidia Darby INSOLE LIP TURNER 06/01/2012 Office visit rBia Mart MD 05/24/2012 Nurse visit Bria Mart [...] Mart MD 09/08/2011 Office visit Jessie Mock INSOLE LIP TURNER 09/08/2011 Nurse visit Bria Mart MD 09/01/2011 [...]
--- OUTSIDE RECORDS SUMMARY | 2017-05-06 20:35 | XMS REPORT ---
Author Author Yvonne Cassidy [facility] Address [address] [place], [place] [address] Care Team Providers Care Senior Technical Editor Name Role Phone Yvonne Cassidy PCP Allergies [...] 1 CAPSULE BY MOUTH EVERY DAY Zithromax Z-Jnoas 250 mg oral tablet 07/21/2011 07/26/2011 Take [...] Depo-Medrol 40 mg [facility]#[id number] Reviewed 09/08/2011 12:00 AM IMMUNOTHERAPY INJECTIONS Reviewed [...] Depo-Medrol 40 mg [facility]#[id number] Reviewed 12/01/2011 12:00 AM IMMUNOTHERAPY INJECTIONS Reviewed [...] 1 Mg [facility]# [address]-37 Reviewed 02/13/2013 12:00 AM Depo-Medrol, Per 80 Mg [facility]#2085-9082-97 Reviewed 06/05/2013 12:00 AM MAMMOGRAM SCREENING Returned [...] BILI 0.50 mg/dLCALCIUM 10.10 mg/dLeGFR >60 mL/min/1.73 [id number] 10.0 secsINR 1.0 PTT 28.20 secs 08/28/2014 [...] CVX Influenza 06/02/2010 sanofi pasteur PMC Fluzone [id number] Intramuscular Left Deltoid 06/02/2010 02/25/2010 999 Influenza 05/09/2015 sanofi pasteur PMC Fluzone [id number] Intramuscular Left Deltoid 05/09/2015 02/22/2015 141 History [...] to other allergen Jan 27 2016 4:12PM Payers Insurance Name Company Name Plan Name Plan Number Policy Number Policy Group Number Start Date [facility] [id number] June [facility] Self Insurance Fund *INVALID State Self Insurance [id number] N/A Comp [place] [id number] Wednesday, 2015 History of Encounters Visit Date Visit Type Provider 01/27/2016 Nurse visit Yvonne Cassidy MD 01/15/2016 Nurse visit Yvonne Cassidy MD 01/08/2016 Office visit Jessie Mock APRN 12/25/2015 Nurse visit Yvonne Cassidy MD 12/09/2015 Nurse visit Yvonne Cassidy MD 12/02/2015 Nurse visit Yvonne Cassidy MD 11/29/2015 Nurse visit Donte Hastings APRN 11/28/2015 Nurse visit Jessie Mock RESOLUTE PROFESSIONAL 11/27/2015 Office visit Jessie Mock RESOLUTE PROFESSIONAL 11/25/2015 Office visit Donte Hastings RESOLUTE PROFESSIONAL 11/18/2015 Nurse visit Donte Hastings RESOLUTE PROFESSIONAL 11/11/2015 Nurse visit Jessie Mock RESOLUTE PROFESSIONAL 11/04/2015 Nurse visit Donte Hastings RESOLUTE PROFESSIONAL 10/29/2015 Office visit Jessie Mock RESOLUTE PROFESSIONAL 10/28/2015 Nurse visit Jessie Mock RESOLUTE PROFESSIONAL 10/21/2015 Nurse visit Glenn Tejeda MD 10/15/2015 Nurse visit Francisco J Jesus DO 10/09/2015 Nurse visit Glenn Tejeda MD 10/02/2015 Office visit April China RESOLUTE PROFESSIONAL 10/01/2015 Nurse visit Jessie Nish RESOLUTE PROFESSIONAL 09/11/2015 Nurse visit Yvonne Cassidy MD 09/05/2015 [...] Office visit 05/29/2015 Office visit Karolyn Millan RESOLUTE PROFESSIONAL 05/29/2015 Nurse visit Yvonne Cassidy MD 05/14/2015 Nurse visit Francisco J Jesus DO 05/09/2015 Nurse visit Yvonne Cassidy MD 04/30/2015 Nurse visit Yvonne Cassidy MD 04/23/2015 Nurse visit Yvonne Cassidy MD 04/18/2015 Nurse visit Nidia Darby RESOLUTE PROFESSIONAL 04/09/2015 Nurse visit Yvonne Cassidy MD 04/01/2015 Nurse visit Yvonne Cassidy MD 03/27/[address] Cody Horvath MD 03/25/2015 [facility] Alexander Park MD 03/19/2015 Nurse visit Yvonne Cassidy MD 03/19/2015 Office visit Nidia Darby RESOLUTE PROFESSIONAL 03/04/2015 Nurse visit Yvonne Cassidy MD 02/25/2015 [...] Office visit 12/31/2014 Office visit Karolyn Millan RESOLUTE PROFESSIONAL 12/24/2014 Nurse visit Yvonne Cassidy MD 12/17/2014 Nurse visit Yvonne Cassidy MD 12/13/2014 Nurse visit Yvonne Cassidy MD 11/28/2014 Nurse visit Yvonne Cassidy MD 11/19/2014 Nurse visit Yvonne Cassidy MD 11/12/2014 Nurse visit Yvonne Cassidy MD 11/05/2014 Nurse visit Yvonne Cassidy MD 11/05/2014 [facility] Darin Park MD 10/29/2014 Nurse visit Yvonne Cassidy MD 10/24/2014 Nurse visit Yvonne Cassidy MD 10/15/2014 Nurse visit Yvonne Cassidy MD 10/11/2014 Office visit Karolyn Millan RESOLUTE PROFESSIONAL 10/09/2014 Nurse visit Yvonne Cassidy MD 10/04/2014 Nurse visit Yvonne Cassidy MD 09/19/2014 Surgery Karolyn Millan RESOLUTE PROFESSIONAL 09/13/2014 Office visit Yvonne Cassidy MD 09/06/2014 Nurse visit Yvonne Cassidy MD 08/28/2014 [facility] Chauncey Hogan MD 08/28/2014 [facility] Joe Thomas MD 08/23/2014 Nurse visit Yvonne Cassidy MD 08/22/2014 Surgery Joe Thomas MD 08/16/2014 Nurse visit Yvonne Cassidy MD 08/07/2014 Nurse visit Yvonne Cassidy MD 08/01/2014 Nurse visit Jessie Mock RESOLUTE PROFESSIONAL 07/25/2014 Nurse visit Nidia Darby RESOLUTE PROFESSIONAL 07/16/2014 Nurse visit Yvonne Cassidy MD 07/09/2014 [...] Cassidy MD 03/20/2014 Nurse visit Jessie Mock RESOLUTE PROFESSIONAL 03/13/2014 Nurse visit Donte Hastings RESOLUTE PROFESSIONAL 03/07/2014 Nurse visit Yvonne Cassidy MD 02/27/2014 Nurse visit Jessie Mock RESOLUTE PROFESSIONAL 02/20/2014 Nurse visit Donte Hastings RESOLUTE PROFESSIONAL 02/13/2014 Nurse visit Donte Hastings RESOLUTE PROFESSIONAL 02/13/2014 Procedures Joe Thomas MD 02/07/2014 Office visit Joe Thomas MD 02/06/2014 Nurse visit Yvonne Cassidy MD 01/17/2014 Nurse visit Nidia Darby RESOLUTE PROFESSIONAL 01/10/2014 Nurse visit Yvonne Cassidy MD 01/02/2014 Nurse visit Yvonne Cassidy MD 12/26/2013 Nurse visit Yvonne Cassidy MD 12/18/2013 Nurse visit Yvonne Cassidy MD 12/12/2013 Nurse visit Yvonne Cassidy MD 12/05/2013 Nurse visit Yvonne Cassidy MD 11/28/2013 Nurse visit Yvonne Cassidy MD 11/21/2013 Nurse visit Yvonne Cassidy MD 11/14/2013 Nurse visit Yvonne Cassidy MD 11/07/2013 Nurse visit Nidia Darby RESOLUTE PROFESSIONAL 10/31/2013 Nurse visit Nidia Darby RESOLUTE PROFESSIONAL 10/25/2013 Nurse visit Nidia Darby RESOLUTE PROFESSIONAL 10/18/2013 Voided Nidia Darby RESOLUTE PROFESSIONAL 10/10/2013 Voided Yvonne Cassidy MD 10/03/2013 Nurse [...] Mart MD 04/18/2013 Nurse visit Nidia Darby RESOLUTE PROFESSIONAL 04/04/2013 Nurse visit Nidia Darby RESOLUTE PROFESSIONAL 03/28/2013 Nurse visit Nidia Darby RESOLUTE PROFESSIONAL 03/21/2013 Nurse visit Nidia Darby RESOLUTE PROFESSIONAL 03/13/2013 Nurse visit Nidia Darby RESOLUTE PROFESSIONAL 03/09/2013 Nurse visit Nidia Darby RESOLUTE PROFESSIONAL 03/02/2013 Nurse visit Nidia Darby RESOLUTE PROFESSIONAL 02/21/2013 Nurse visit Nidia Darby RESOLUTE PROFESSIONAL 02/13/2013 Office visit Nidia Darby RESOLUTE PROFESSIONAL 02/06/2013 Nurse visit Bria Mart MD 01/31/2013 [...] Mart MD 10/04/2012 Nurse visit Nidia Darby RESOLUTE PROFESSIONAL 09/27/2012 Nurse visit Bria Mart MD 09/22/2012 Nurse visit Bria Mart MD 09/12/2012 Nurse visit Bria Mart MD 09/05/2012 Nurse visit Francisco J Jesus DO 08/31/2012 Nurse visit Bria Mart MD 08/23/2012 Nurse visit Bria Matr MD 08/16/2012 Nurse visit Bria Mart MD 08/10/2012 Nurse visit Bria Mart MD 08/03/2012 Nurse visit Bria Mart MD 07/26/2012 Nurse visit Bria Mart MD 07/13/2012 Nurse visit Bria Mart MD 07/05/2012 Nurse visit Bria Mart MD 06/21/2012 Nurse visit Bria Mart MD 06/14/2012 Nurse visit Bria Mart MD 06/07/2012 Nurse visit Nidia Darby RESOLUTE PROFESSIONAL 06/07/2012 Voided Francisco J Jesus DO 06/01/2012 [...] Mart MD 09/08/2011 Office visit Jessie Mock RESOLUTE PROFESSIONAL 09/01/2011 Nurse visit Bria Mart MD 08/21/2011 [...]
--- OUTSIDE RECORDS SUMMARY | 2017-05-06 20:38 | XMS REPORT ---
Author Author Yvonne Cassidy [facility] Address [address] [place], [place] [id number] Care Team Providers Care Volcanology Teacher Name Role Phone Yvonne Cassidy PCP [...] Reviewed 08/21/2011 12:00 AM Depo-Medrol 40 mg [place]#[id number] Reviewed 09/08/2011 12:00 AM IMMUNOTHERAPY INJECTIONS Reviewed [...] AM Depo-Medrol 40 mg [facility]#[id number] Reviewed 12/01/2011 12:00 AM IMMUNOTHERAPY INJECTIONS Reviewed [...] Per 1 Mg [facility]# [id number] Reviewed 02/13/2013 12:00 AM Depo-Medrol, Per 80 Mg [facility]#[id number] Reviewed 06/05/2013 12:00 AM MAMMOGRAM SCREENING Returned [...] BILI 0.50 mg/dLCALCIUM 10.10 mg/dLeGFR >60 mL/min/1.73 [id number] 10.0 secsINR 1.0 PTT 28.20 secs 08/28/2014 [...] Vis Pub CVX Influenza 06/02/2010 sanofi pasteur [facility] Fluzone [id number] Intramuscular Left Deltoid 06/02/2010 02/25/2010 999 History [...] to other allergen Apr 01 2015 4:23PM Payers Insurance Name Company Name Plan Name Plan Number Policy Number Policy Group Number [id number] [place] Self Insurance Fund *INVALID [place] Self Insurance [id number] N /A History of Encounters Visit Date Visit Type Provider 04/01/2015 Nurse visit Yvonne Cassidy MD 03/27/[address] Cody Horvath MD 03/19/2015 Nurse visit Yvonne Cassidy MD 03/19/2015 Office visit Nidia Darby CLINIC MANAGER 03/04/2015 Nurse visit Yvonne Cassidy MD [...] Cassidy MD 12/31/2014 Office visit Karolyn Millan CLINIC MANAGER 12/24/2014 Nurse visit Yvonne Cassidy MD [...] Cassidy MD 10/11/2014 Office visit Karolyn Millan CLINIC MANAGER 10/09/2014 Nurse visit Yvonne Cassidy MD 10/04/2014 Nurse visit Yvonne Cassidy MD 09/19/2014 Surgery Karolyn Millan CLINIC MANAGER 09/13/2014 Office visit Yvonne Cassidy MD 09/06/2014 Nurse visit Yvonne Cassidy MD 08/28/2014 [facility] Chauncey Hogan MD 08/28/2014 [facility] Joe Thomas MD 08/23/2014 Nurse visit Yvonne Cassidy MD 08/22/2014 Surgery Joe Thomas MD 08/16/2014 Nurse visit Yvonne Cassidy MD 08/07/2014 Nurse visit Yvonne Cassidy MD 08/01/2014 Nurse visit Jessie Mock CLINIC MANAGER 07/25/2014 Nurse visit Nidia Darby CLINIC MANAGER 07/16/2014 Nurse visit Yvonne Cassidy MD [...] Cassidy MD 03/20/2014 Nurse visit Jessie Mock CLINIC MANAGER 03/13/2014 Nurse visit Donte Hastings CLINIC MANAGER 03/07/2014 Nurse visit Yvonne Cassidy MD 02/27/2014 Nurse visit Jessie Mock CLINIC MANAGER 02/20/2014 Nurse visit Donte Hastings CLINIC MANAGER 02/13/2014 Nurse visit Donte Hastings CLINIC MANAGER 02/13/2014 Procedures Joe Thomas MD 02/07/2014 Office visit Joe Thomas MD 02/06/2014 Nurse visit Yvonne Cassidy MD 01/17/2014 Nurse visit Nidia Darby CLINIC MANAGER 01/10/2014 Nurse visit Yvonne Cassidy MD 01/02/2014 Nurse visit Yvonne Cassidy MD 12/26/2013 Nurse visit Yvonne Cassidy MD 12/18/2013 Nurse visit Yvonne Cassidy MD 12/12/2013 Nurse visit Yvonne Cassidy MD 12/05/2013 Nurse visit Yvonne Cassidy MD 11/28/2013 Nurse visit Yvonne Cassidy MD 11/21/2013 Nurse visit Yvonne Cassidy MD 11/14/2013 Nurse visit Yvonne Cassidy MD 11/07/2013 Nurse visit Nidia Darby CLINIC MANAGER 10/31/2013 Nurse visit Nidia Darby CLINIC MANAGER 10/25/2013 Nurse visit Nidia Darby CLINIC MANAGER 10/18/2013 Voided Nidia Darby CLINIC MANAGER 10/10/2013 Voided Yvonne Cassidy MD 10/03/2013 Nurse visit Yvonne Cassidy MD 09/18/2013 Office visit Yvonne Cassidy MD 09/15/2013 Nurse visit Yvonne Cassidy MD 09/08/2013 Office visit Joe Thomas MD 09/05/2013 Nurse visit Yvonne Cassidy MD 08/29/2013 Nurse visit Yvonne Cassidy MD 08/21/2013 Nurse visit Yvonne Cassidy MD 08/18/2013 Office visit Robinson Rodriguze PA-C 08/14/2013 Nurse visit Yvonne Cassidy MD [...] Mart MD 04/18/2013 Nurse visit Nidia Darby CLINIC MANAGER 04/04/2013 Nurse visit Nidia Darby CLINIC MANAGER 03/28/2013 Nurse visit Nidia Darby CLINIC MANAGER 03/21/2013 Nurse visit Nidia Darby CLINIC MANAGER 03/13/2013 Nurse visit Nidia Darby CLINIC MANAGER 03/09/2013 Nurse visit Nidia Darby CLINIC MANAGER 03/02/2013 Nurse visit Nidia Darby CLINIC MANAGER 02/21/2013 Nurse visit Nidia Darby CLINIC MANAGER 02/13/2013 Office visit Nidia Darby CLINIC MANAGER 02/06/2013 Nurse visit Bria Mart MD [...] Mart MD 10/04/2012 Nurse visit Nidia Darby CLINIC MANAGER 09/27/2012 Nurse visit Bria Mart MD [...] Mart MD 06/07/2012 Nurse visit Nidia Darby CLINIC MANAGER 06/07/2012 Voided Francisco J Jesus DO [...] visit Glenn Tejeda MD 12/29/2011 Nurse visit Bira Mart MD 12/22/2011 Nurse visit Bria Mart [...] Mart MD 09/08/2011 Office visit Jessie Nish CLINIC MANAGER 09/01/2011 Nurse visit Bria Mart MD [...] visit Bria Mart MD 02/25/2011 Office visit Brai aMrt MD 12/30/2010 Office visit Bria Mart MD 11/12/2010 Office visit Bria Mart MD 06/03/2010 Office visit Bria Mart MD 05/26/2010 Office visit Bria Mart MD 11/07/2009 Office visit Bria Mart MD 05/29/2009 Office visit Marium GOLDEN
--- OUTSIDE RECORDS SUMMARY | 2017-05-06 20:42 | XMS REPORT ---
Author Author Jessie Mock [facility] Address [address] [place], [place] [id number] Care Team Providers Care Cook Fishing Vessel Name Role Phone Jessie Mock PCP Unavailable [...] Depo-Medrol 40 mg [facility]#[id number] Reviewed 03/02/2016 12:00 AM IMMUNOTHERAPY INJECTIONS Reviewed [...] Depo-Medrol 40 mg [facility]#[id number] Reviewed 12/01/2011 12:00 AM IMMUNOTHERAPY INJECTIONS Reviewed [...] 1 Mg [facility]# [id number] Reviewed 02/13/2013 12:00 AM Depo-Medrol, Per 80 Mg [facility]#[id number] Reviewed 06/05/2013 12:00 AM MAMMOGRAM SCREENING Returned [...] BILI 0.50 mg/dLCALCIUM 10.10 mg/dLeGFR >60 mL/min/1.73 [id number] 10.0 secsINR 1.0 PTT 28.20 secs 08/28/2014 [...] CVX Influenza 06/02/2010 sanofi pasteur [facility] Fluzone [id number] Intramuscular Left Deltoid 06/02/2010 02/25/2010 999 Influenza 05/09/2015 sanofi pasteur [facility] Fluzone [id number] Intramuscular Left Deltoid 05/09/2015 02/22/2015 141 History [...] Group Number Start Date [employer] [facility] [place] [id number] June [facility] Self Insurance Fund *INVALID State Self Insurance [id number] N/A Comp [employer] [id number] Wednesday, 2015 History of Encounters Visit Date Visit Type Provider 04/23/2016 Office visit Jessie Mock LINE THERAPIST 04/13/2016 Nurse visit Yvonne Cassidy MD 04/07/2016 Nurse visit Yvonne Cassidy MD 04/01/2016 Office visit Jessie Mock LINE THERAPIST 03/26/2016 Nurse visit Yvonne Cassidy MD 03/17/2016 Nurse visit Yvonne Cassidy MD 03/11/2016 Nurse visit Yvonne Cassidy MD 03/04/2016 Office visit Jessie Mock LINE THERAPIST 03/02/2016 Nurse visit Yvonne Cassidy MD 02/19/2016 Nurse visit Yvonne Cassidy MD 02/12/2016 Office visit Jessie Mock LINE THERAPIST 02/03/2016 Nurse visit Yvonne Cassidy MD 01/27/2016 Nurse visit Yvonne Cassidy MD 01/15/2016 Nurse visit Yvonne Cassidy MD 01/08/2016 Office visit Jessie Mock LINE THERAPIST 12/25/2015 Nurse visit Yvonne Cassidy MD 12/09/2015 Nurse visit Yvonne Cassdiy MD 12/02/2015 Nurse visit Yvonne Cassidy MD 11/29/2015 Nurse visit Donte Hastings LINE THERAPIST 11/28/2015 Nurse visit Jessie Mock LINE THERAPIST 11/27/2015 Office visit Jessie Mock LINE THERAPIST 11/25/2015 Office visit Donte Hastings LINE THERAPIST 11/18/2015 Nurse visit Donte Hastings LINE THERAPIST 11/11/2015 Nurse visit Jessie Mock LINE THERAPIST 11/04/2015 Nurse visit Donte Hastings LINE THERAPIST 10/29/2015 Office visit Jessie Mock LINE THERAPIST 10/28/2015 Nurse visit Jessie Mock LINE THERAPIST 10/21/2015 Nurse visit Glenn Tejeda MD 10/15/2015 Nurse visit Francisco J Jesus DO 10/09/2015 Nurse visit Glenn Tejeda MD 10/02/2015 Office visit April Atkinson LINE THERAPIST 10/01/2015 Nurse visit Jessie Mock LINE THERAPIST 09/11/2015 Nurse visit Yvonne Cassidy MD 09/05/2015 [...] Office visit 05/29/2015 Office visit Karolyn Millan LINE THERAPIST 05/29/2015 Nurse visit Yvonne Cassidy MD 05/14/2015 Nurse visit Francisco J Jesus DO 05/09/2015 Nurse visit Yvonne Cassidy MD 04/30/2015 Nurse visit Yvonne Cassidy MD 04/23/2015 Nurse visit Yvonne Cassidy MD 04/18/2015 Nurse visit Nidia Darby LINE THERAPIST 04/09/2015 Nurse visit Yvonne Cassidy MD 04/01/2015 Nurse visit Yvonne Cassidy MD 03/27/[address] Cody Horvath MD 03/25/2015 [facility] Alexander Park MD 03/19/2015 Nurse visit Yvonne Cassidy MD 03/19/2015 Office visit Nidia Darby LINE THERAPIST 03/04/2015 Nurse visit Yvonne Cassidy MD 02/25/2015 [...] Office visit 12/31/2014 Office visit Karolyn Millan LINE THERAPIST 12/24/2014 Nurse visit Yvonne Cassidy MD 12/17/2014 Nurse visit Yvonne Cassidy MD 12/13/2014 Nurse visit Yvonne Cassidy MD 11/28/2014 Nurse visit Yvonne Cassidy MD 11/19/2014 Nurse visit Yvonne Cassidy MD 11/12/2014 Nurse visit Yvonne Cassidy MD 11/05/2014 Nurse visit Yvonne Cassidy MD 11/05/2014 [facility] Darin Park MD 10/29/2014 Nurse visit Yvonne Cassidy MD 10/24/2014 Nurse visit Yvonne Cassidy MD 10/15/2014 Nurse visit Yvonne Cassidy MD 10/11/2014 Office visit Karolyn Millan LINE THERAPIST 10/09/2014 Nurse visit Yvonne Cassidy MD 10/04/2014 Nurse visit Yvonne Cassidy MD 09/19/2014 Surgery Karolyn Millan LINE THERAPIST 09/13/2014 Office visit Yvonne Cassidy MD 09/06/2014 Nurse visit Yvonne Cassidy MD 08/28/2014 [facility] Chauncey Hogan MD 08/28/2014 [facility] Joe Thomas MD 08/23/2014 Nurse visit Yvonne Cassidy MD 08/22/2014 Surgery Joe Thomas MD 08/16/2014 Nurse visit Yvonne Cassidy MD 08/07/2014 Nurse visit Yvonne Cassidy MD 08/01/2014 Nurse visit Jessie Mock LINE THERAPIST 07/25/2014 Nurse visit Nidia Darby LINE THERAPIST 07/16/2014 Nurse visit Yvonne Cassidy MD 07/09/2014 [...] Cassidy MD 03/20/2014 Nurse visit Jessie Mock LINE THERAPIST 03/13/2014 Nurse visit Donte Hastings LINE THERAPIST 03/07/2014 Nurse visit Yvonne Cassidy MD 02/27/2014 Nurse visit Jessie Mock LINE THERAPIST 02/20/2014 Nurse visit Donte Hastings LINE THERAPIST 02/13/2014 Nurse visit Donte Hastings LINE THERAPIST 02/13/2014 Procedures Joe Thomas MD 02/07/2014 Office visit Joe Thomas MD 02/06/2014 Nurse visit Yvonne Cassidy MD 01/17/2014 Nurse visit Nidia Darby LINE THERAPIST 01/10/2014 Nurse visit Yvonne Cassidy MD 01/02/2014 Nurse visit Yvonne Cassidy MD 12/26/2013 Nurse visit Yvonne Cassidy MD 12/18/2013 Nurse visit Yvonne Cassidy MD 12/12/2013 Nurse visit Yvonne Cassidy MD 12/05/2013 Nurse visit Yvonne Cassidy MD 11/28/2013 Nurse visit Yvonne Cassidy MD 11/21/2013 Nurse visit Yvonne Cassidy MD 11/14/2013 Nurse visit Yvonne Cassidy MD 11/07/2013 Nurse visit Nidia Darby LINE THERAPIST 10/31/2013 Nurse visit Nidia Darby LINE THERAPIST 10/25/2013 Nurse visit Nidia Darby LINE THERAPIST 10/18/2013 Voided Nidia Darby LINE THERAPIST 10/10/2013 Voided Yvonne Cassidy MD 10/03/2013 Nurse [...] Mart MD 04/18/2013 Nurse visit Nidia Darby LINE THERAPIST 04/04/2013 Nurse visit Nidia Darby LINE THERAPIST 03/28/2013 Nurse visit Nidia Darby LINE THERAPIST 03/21/2013 Nurse visit Nidia Darby LINE THERAPIST 03/13/2013 Nurse visit Nidia Darby LINE THERAPIST 03/09/2013 Nurse visit Nidia Darby LINE THERAPIST 03/02/2013 Nurse visit Nidia Darby LINE THERAPIST 02/21/2013 Nurse visit Nidia Darby LINE THERAPIST 02/13/2013 Office visit Nidia Darby LINE THERAPIST 02/06/2013 Nurse visit Bria Mart MD 01/31/2013 [...] Mart MD 10/04/2012 Nurse visit Nidia Darby LINE THERAPIST 09/27/2012 Nurse visit Bria Mart MD 09/22/2012 [...] Mart MD 06/07/2012 Nurse visit Nidia Darby LINE THERAPIST 06/07/2012 Voided Francisco J Jesus DO 06/01/2012 Office visit Bira Mart MD 05/24/2012 Nurse visit Bria Mart [...] Mart MD 09/08/2011 Office visit Jessie Mock LINE THERAPIST 09/01/2011 Nurse visit Bria Mart MD 08/21/2011 [...]
--- OUTSIDE RECORDS SUMMARY | 2017-05-06 20:46 | XMS REPORT ---
Author Author Jessie Mock [facility] Address [address] [place], [place] [address] Care Team Providers Care Business Segment Manager Name Role Phone Jessie Mock PCP Unavailable [...] AM Depo-Medrol 40 mg [facility]#[id number] Reviewed 03/02/2016 12:00 AM IMMUNOTHERAPY INJECTIONS Reviewed [...] AM Depo-Medrol 40 mg [facility]#[id number] Reviewed 12/01/2011 12:00 AM IMMUNOTHERAPY INJECTIONS Reviewed [...] Per 1 Mg [facility]# [id number] Reviewed 02/13/2013 12:00 AM Depo-Medrol, Per 80 Mg [facility]#[id number] Reviewed 06/05/2013 12:00 AM MAMMOGRAM SCREENING Returned [...] BILI 0.50 mg/dLCALCIUM 10.10 mg/dLeGFR >60 mL/min/1.73 [id number] 10.0 secsINR 1.0 PTT 28.20 secs 08/28/2014 [...] CVX Influenza 06/02/2010 sanofi pasteur [facility] Fluzone [id number] Intramuscular Left Deltoid 06/02/2010 02/25/2010 999 Influenza 05/09/2015 sanofi pasteur [facility] Fluzone [id number] Intramuscular Left Deltoid 05/09/2015 02/22/2015 141 History [...] tube dysfunction, right Apr 01 2016 9:49AM Payers Insurance Name Company Name Plan Name Plan Number Policy Number Policy Group Number Start Date [facility] [id number] June [facility] Self Insurance Fund *INVALID State Self Insurance [id number] N/A Comp [employer] [id number] Wednesday, 2015 History of Encounters Visit Date Visit Type Provider 04/01/2016 Office visit Jessie Mock TEST ENGINEER NUCLEAR EQUIPMENT 03/26/2016 Nurse visit Yvonne Cassidy MD 03/17/2016 Nurse visit Yvonne Cassidy MD 03/11/2016 Nurse visit Yvonne Cassidy MD 03/04/2016 Office visit Jessie Mock TEST ENGINEER NUCLEAR EQUIPMENT 03/02/2016 Nurse visit Yvonne Cassidy MD 02/19/2016 Nurse visit Yvonne Cassidy MD 02/12/2016 Office visit Jessie Mock TEST ENGINEER NUCLEAR EQUIPMENT 02/03/2016 Nurse visit Yvonne Cassidy MD 01/27/2016 Nurse visit Yvonne Cassidy MD 01/15/2016 Nurse visit Yvonne Cassidy MD 01/08/2016 Office visit Jessie Mock TEST ENGINEER NUCLEAR EQUIPMENT 12/25/2015 Nurse visit Yvonne Cassidy MD 12/09/2015 Nurse visit Yvonne Cassidy MD 12/02/2015 Nurse visit vYonne Cassidy MD 11/29/2015 Nurse visit Donte Hastings TEST ENGINEER NUCLEAR EQUIPMENT 11/28/2015 Nurse visit Jessie Mock TEST ENGINEER NUCLEAR EQUIPMENT 11/27/2015 Office visit Jessie Mock TEST ENGINEER NUCLEAR EQUIPMENT 11/25/2015 Office visit Donte Hastings TEST ENGINEER NUCLEAR EQUIPMENT 11/18/2015 Nurse visit Donte Hastings TEST ENGINEER NUCLEAR EQUIPMENT 11/11/2015 Nurse visit Jessie Mock TEST ENGINEER NUCLEAR EQUIPMENT 11/04/2015 Nurse visit Donte Hastings TEST ENGINEER NUCLEAR EQUIPMENT 10/29/2015 Office visit Jessie Mock TEST ENGINEER NUCLEAR EQUIPMENT 10/28/2015 Nurse visit Jessie Mock TEST ENGINEER NUCLEAR EQUIPMENT 10/21/2015 Nurse visit Glenn Tjeeda MD 10/15/2015 Nurse visit Francisco J Jesus DO 10/09/2015 Nurse visit Glenn Tejeda MD 10/02/2015 Office visit April Atkinson TEST ENGINEER NUCLEAR EQUIPMENT 10/01/2015 Nurse visit Jessie Mock TEST ENGINEER NUCLEAR EQUIPMENT 09/11/2015 Nurse visit Yvonne Cassidy MD 09/05/2015 [...] Office visit 05/29/2015 Office visit Karolyn Millan TEST ENGINEER NUCLEAR EQUIPMENT 05/29/2015 Nurse visit Yvonne Cassidy MD 05/14/2015 Nurse visit Francisco J Danielsonnola ISSA 05/09/2015 Nurse visit Yvonne Cassidy MD 04/30/2015 Nurse visit Yvonne Cassidy MD 04/23/2015 Nurse visit Yvonne Cassidy MD 04/18/2015 Nurse visit Nidia Darby TEST ENGINEER NUCLEAR EQUIPMENT 04/09/2015 Nurse visit Yvonne Cassidy MD 04/01/2015 Nurse visit Yvonne Cassidy MD 03/27/[address] Coyd Horvath MD 03/25/2015 [facility] Alexander Park MD 03/19/2015 Nurse visit Yvonne Cassidy MD 03/19/2015 Office visit Nidia Darby TEST ENGINEER NUCLEAR EQUIPMENT 03/04/2015 Nurse visit Yvonne Cassidy MD 02/25/2015 [...] Office visit 12/31/2014 Office visit Karolyn Millan TEST ENGINEER NUCLEAR EQUIPMENT 12/24/2014 Nurse visit Yvonne Cassidy MD 12/17/2014 Nurse visit Yvonne Cassidy MD 12/13/2014 Nurse visit Yvonne Cassidy MD 11/28/2014 Nurse visit Yvonne Cassidy MD 11/19/2014 Nurse visit Yvonne Cassidy MD 11/12/2014 Nurse visit Yvonne Cassidy MD 11/05/2014 Nurse visit Yovnne Cassidy MD 11/05/2014 [facility] Alexander Park MD 10/29/2014 Nurse visit Yvonne Cassidy MD 10/24/2014 Nurse visit Yvonne Cassidy MD 10/15/2014 Nurse visit Yvonne Cassidy MD 10/11/2014 Office visit Karolyn Millan TEST ENGINEER NUCLEAR EQUIPMENT 10/09/2014 Nurse visit Yvonne Cassidy MD 10/04/2014 Nurse visit Yvonne Cassidy MD 09/19/2014 Surgery Karolyn Millan TEST ENGINEER NUCLEAR EQUIPMENT 09/13/2014 Office visit Yvonne Cassidy MD 09/06/2014 Nurse visit Yvonne Cassidy MD 08/28/2014 [facility] Chauncey Hogan MD 08/28/2014 [facility] Joe Thomas MD 08/23/2014 Nurse visit Yvonne Cassidy MD 08/22/2014 Surgery Joe Thomas MD 08/16/2014 Nurse visit Yvonne Cassidy MD 08/07/2014 Nurse visit Yvonne Cassidy MD 08/01/2014 Nurse visit Jessie Mock TEST ENGINEER NUCLEAR EQUIPMENT 07/25/2014 Nurse visit Nidia Darby TEST ENGINEER NUCLEAR EQUIPMENT 07/16/2014 Nurse visit Yvonne Cassidy MD 07/09/2014 [...] Cassidy MD 03/20/2014 Nurse visit Jessie Mock TEST ENGINEER NUCLEAR EQUIPMENT 03/13/2014 Nurse visit Donte Hastings TEST ENGINEER NUCLEAR EQUIPMENT 03/07/2014 Nurse visit Yvonne Cassidy MD 02/27/2014 Nurse visit Jessie Mock TEST ENGINEER NUCLEAR EQUIPMENT 02/20/2014 Nurse visit Donte Hastings TEST ENGINEER NUCLEAR EQUIPMENT 02/13/2014 Nurse visit Donte Hastings TEST ENGINEER NUCLEAR EQUIPMENT 02/13/2014 Procedures Joe Thomas MD 02/07/2014 Office visit Joe Thomas MD 02/06/2014 Nurse visit Yvonne Cassidy MD 01/17/2014 Nurse visit Nidia Darby TEST ENGINEER NUCLEAR EQUIPMENT 01/10/2014 Nurse visit Yvonne Cassidy MD 01/02/2014 Nurse visit Yvonne Cassidy MD 12/26/2013 Nurse visit Yvonne Cassidy MD 12/18/2013 Nurse visit Yvonne Cassidy MD 12/12/2013 Nurse visit Yvonne Cassidy MD 12/05/2013 Nurse visit Yvonne Cassidy MD 11/28/2013 Nurse visit Yvonne Cassidy MD 11/21/2013 Nurse visit Yvonne Cassidy MD 11/14/2013 Nurse visit Yvonne Cassidy MD 11/07/2013 Nurse visit Nidia Darby TEST ENGINEER NUCLEAR EQUIPMENT 10/31/2013 Nurse visit Nidia Darby TEST ENGINEER NUCLEAR EQUIPMENT 10/25/2013 Nurse visit Nidia Darby TEST ENGINEER NUCLEAR EQUIPMENT 10/18/2013 Voided Nidia Darby TEST ENGINEER NUCLEAR EQUIPMENT 10/10/2013 Voided Yvonne Cassidy MD 10/03/2013 Nurse visit Yvonne Cassidy MD 09/18/2013 Office visit Yvonne Cassidy MD 09/15/2013 Nurse visit Yvonne Cassidy MD 09/08/2013 Office visit Joe Thomas MD 09/05/2013 Nurse visit Yvonne Cassidy MD 08/29/2013 Nurse visit Yvonne Cassidy MD 08/21/2013 Nurse visit Yvnone Cassidy MD 08/18/2013 Office visit Robinson Rodriguez [...] MD 04/18/2013 Nurse visit Nidia GonzalesZafar Darby TEST ENGINEER NUCLEAR EQUIPMENT 04/04/2013 Nurse visit Nidia GonzalesZafar Wilner TEST ENGINEER NUCLEAR EQUIPMENT 03/28/2013 Nurse visit Nidia GonzalesZafar Wilner TEST ENGINEER NUCLEAR EQUIPMENT 03/21/2013 Nurse visit Nidia GonzalesZafar Wilner TEST ENGINEER NUCLEAR EQUIPMENT 03/13/2013 Nurse visit Nidia GonzalesZafar Darby TEST ENGINEER NUCLEAR EQUIPMENT 03/09/2013 Nurse visit Nidia GonzalesZafar Darby TEST ENGINEER NUCLEAR EQUIPMENT 03/02/2013 Nurse visit Nidia GonzalesZafar Darby TEST ENGINEER NUCLEAR EQUIPMENT 02/21/2013 Nurse visit Nidia Sheridan Darby TEST ENGINEER NUCLEAR EQUIPMENT 02/13/2013 Office visit Nidia Darby TEST ENGINEER NUCLEAR EQUIPMENT 02/06/2013 Nurse visit Bria Mart MD 01/31/2013 [...] Mart MD 10/04/2012 Nurse visit Nidia Darby TEST ENGINEER NUCLEAR EQUIPMENT 09/27/2012 Nurse visit Bria Mart MD 09/22/2012 [...] MD 06/07/2012 Nurse visit Nidia GonzalesZafar Darby TEST ENGINEER NUCLEAR EQUIPMENT 06/07/2012 Voided Francisco J Jesus 06/01/2012 Office [...] Bria Mart MD 12/01/2011 Nurse visit Bria aMrt MD 11/27/2011 Office visit Bria Mart MD [...] Mart MD 09/08/2011 Office visit Jessie Nish TEST ENGINEER NUCLEAR EQUIPMENT 09/01/2011 Nurse visit Bria Mart MD 08/21/2011 [...]
--- OUTSIDE RECORDS SUMMARY | 2017-05-06 20:49 | XMS REPORT ---
Author Author Yvonne Cassidy [facility] Address [address] [place], [place] [address] Care Team Providers Care Facing Baster Jumpbasting Name Role Phone Yvonne Cassidy PCP Allergies [...] Reviewed 07/01/2015 12:00 AM IMMUNOTHERAPY INJECTIONS Reviewed 04/29/2011 12:00 [...] AM Depo-Medrol 40 mg [facility]#[id number] Reviewed 09/08/2011 12:00 AM IMMUNOTHERAPY INJECTIONS Reviewed [...] AM Depo-Medrol 40 mg [facility]#[id number] Reviewed 12/01/2011 12:00 AM IMMUNOTHERAPY INJECTIONS Reviewed [...] 1 Mg [facility]# [address]-94 Reviewed 02/13/2013 12:00 AM Depo-Medrol, Per 80 Mg [facility]#[id number] Reviewed 06/05/2013 12:00 AM MAMMOGRAM SCREENING Returned [...] BILI 0.50 mg/dLCALCIUM 10.10 mg/dLeGFR >60 mL/min/1.73 [id number] 10.0 secsINR 1.0 PTT 28.20 secs 08/28/2014 [...] CVX Influenza 06/02/2010 sanofi pasteur PMC Fluzone [id number] Intramuscular Left Deltoid 06/02/2010 02/25/2010 999 Influenza 05/09/2015 sanofi pasteur PMC Fluzone [id number] Intramuscular Left Deltoid 05/09/2015 02/22/2015 141 History [...] to other allergen Jul 01 2015 4:39PM Payers Insurance Name Company Name Plan Name Plan Number Policy Number Policy Group Number Start Date [facility] [id number] [place] Self Insurance [id number] N /A History of Encounters Visit Date Visit Type Provider 07/01/2015 Nurse visit Yvonne Cassidy MD 06/26/2015 Nurse visit Yvonne Cassidy MD 06/17/2015 Nurse visit Yvonne Cassidy MD 06/10/2015 Nurse visit Yvonne Cassidy MD 06/04/2015 Nurse visit Yvonne Cassidy MD 05/29/2015 Office visit Karolyn Millan CONSULTING SOLUTION DIRECTOR 05/29/2015 Nurse visit Yvonne Cassidy MD 05/14/2015 Nurse visit Francisco J Jesus DO 05/09/2015 Nurse visit Yvonne Cassidy MD 04/30/2015 Nurse visit Yvonne Cassidy MD 04/23/2015 Nurse visit Yvonne Cassidy MD 04/18/2015 Nurse visit Nidia Darby CONSULTING SOLUTION DIRECTOR 04/09/2015 Nurse visit Yvonne Cassidy MD 04/01/2015 Nurse visit Yvonne Cassidy MD 03/27/[address] Cody Horvath MD 03/25/2015 [facility] Darin Park MD 03/19/2015 Nurse visit Yvonne Cassidy MD 03/19/2015 Office visit Nidia Darby CONSULTING SOLUTION DIRECTOR 03/04/2015 Nurse visit Yvonne Cassidy MD 02/25/2015 [...] Cassidy MD 12/31/2014 Office visit Karolyn Millan CONSULTING SOLUTION DIRECTOR 12/24/2014 Nurse visit Yvonne Cassidy MD 12/17/2014 [...] Cassidy MD 10/11/2014 Office visit Karolyn Millan CONSULTING SOLUTION DIRECTOR 10/09/2014 Nurse visit Yvonne Cassidy MD 10/04/2014 Nurse visit Yvonne Cassidy MD 09/19/2014 Surgery Karolyn Millan CONSULTING SOLUTION DIRECTOR 09/13/2014 Office visit Yvonne Cassidy MD 09/06/2014 Nurse visit Yvonne Cassidy MD 08/28/2014 Hospital Chauncey Hogan MD 08/28/2014 Hospital Joe Thomas MD 08/23/2014 Nurse visit Yvonne Cassidy MD 08/22/2014 Surgery Joe Thomas MD 08/16/2014 Nurse visit Yvonne Cassidy MD 08/07/2014 Nurse visit Yvonne Cassidy MD 08/01/2014 Nurse visit Jessie Mock CONSULTING SOLUTION DIRECTOR 07/25/2014 Nurse visit Nidia Darby CONSULTING SOLUTION DIRECTOR 07/16/2014 Nurse visit Yvonne Cassidy MD 07/09/2014 [...] Cassidy MD 03/20/2014 Nurse visit Jessie Mock CONSULTING SOLUTION DIRECTOR 03/13/2014 Nurse visit Donte Hastings CONSULTING SOLUTION DIRECTOR 03/07/2014 Nurse visit Yvonne Cassidy MD 02/27/2014 Nurse visit Jessie Mock CONSULTING SOLUTION DIRECTOR 02/20/2014 Nurse visit Donte Hastings CONSULTING SOLUTION DIRECTOR 02/13/2014 Nurse visit Donte Hastings CONSULTING SOLUTION DIRECTOR 02/13/2014 Procedures Joe Thomas MD 02/07/2014 Office visit Joe Thomas MD 02/06/2014 Nurse visit Yvonne Cassidy MD 01/17/2014 Nurse visit Nidia Darby CONSULTING SOLUTION DIRECTOR 01/10/2014 Nurse visit Yvonne Cassidy MD 01/02/2014 Nurse visit Yvonne Cassidy MD 12/26/2013 Nurse visit Yvonne Cassidy MD 12/18/2013 Nurse visit Yvonne Cassidy MD 12/12/2013 Nurse visit Yvonne Cassidy MD 12/05/2013 Nurse visit Yvonne Cassidy MD 11/28/2013 Nurse visit Yvonne Cassidy MD 11/21/2013 Nurse visit Yvonne Cassidy MD 11/14/2013 Nurse visit Yvonne Cassidy MD 11/07/2013 Nurse visit Nidia Darby CONSULTING SOLUTION DIRECTOR 10/31/2013 Nurse visit Nidia Darby CONSULTING SOLUTION DIRECTOR 10/25/2013 Nurse visit Nidia Darby CONSULTING SOLUTION DIRECTOR 10/18/2013 Voided Nidia Darby CONSULTING SOLUTION DIRECTOR 10/10/2013 Voided Yvonne Cassidy MD 10/03/2013 Nurse [...] Mart MD 04/18/2013 Nurse visit Nidia Darby CONSULTING SOLUTION DIRECTOR 04/04/2013 Nurse visit Nidia Darby CONSULTING SOLUTION DIRECTOR 03/28/2013 Nurse visit Nidia Darby CONSULTING SOLUTION DIRECTOR 03/21/2013 Nurse visit Nidia Darby CONSULTING SOLUTION DIRECTOR 03/13/2013 Nurse visit Nidia Darby CONSULTING SOLUTION DIRECTOR 03/09/2013 Nurse visit Nidia Darby CONSULTING SOLUTION DIRECTOR 03/02/2013 Nurse visit Nidia Darby CONSULTING SOLUTION DIRECTOR 02/21/2013 Nurse visit Nidia Darby CONSULTING SOLUTION DIRECTOR 02/13/2013 Office visit Nidia Darby CONSULTING SOLUTION DIRECTOR 02/06/2013 Nurse visit Bria Mart MD 01/31/2013 [...] MD 10/04/2012 Nurse visit Nidia NZafar Darby CONSULTING SOLUTION DIRECTOR 09/27/2012 Nurse visit Bria Mart MD 09/22/2012 [...] MD 06/07/2012 Nurse visit Nidia Sheridan Darby CONSULTING SOLUTION DIRECTOR 06/07/2012 Voided Francisco J Jesus 06/01/2012 Office [...] Mart MD 09/08/2011 Office visit Jessie Mock CONSULTING SOLUTION DIRECTOR 09/01/2011 Nurse visit Bria Mart MD 08/21/2011 [...]
--- OUTSIDE RECORDS SUMMARY | 2017-05-06 20:53 | XMS REPORT ---
Author Author Jessie Mock [facility] Address [address] [place], [place] [address] Care Team Providers Care Cash Applications Associate Name Role Phone Jessie Mock PCP Unavailable [...] HC BMI BSA BMI Percentile O2 Sat(%) 11/28/2015 4:07:00 PM 140 mmHg 84 mmHg [...] 12:00 AM Depo-Medrol 40 mg [facility]#[id number] Reviewed 09/08/2011 12:00 AM IMMUNOTHERAPY INJECTIONS Reviewed [...] 12:00 AM Depo-Medrol 40 mg [facility]#[id number] Reviewed 12/01/2011 12:00 AM IMMUNOTHERAPY INJECTIONS Reviewed [...] Decadron, Per 1 Mg [facility]# [address]-59 Reviewed 02/13/2013 12:00 AM Depo-Medrol, Per 80 Mg [facility]#[id number] Reviewed 06/05/2013 12:00 AM MAMMOGRAM SCREENING Returned [...] BILI 0.50 mg/dLCALCIUM 10.10 mg/dLeGFR >60 mL/min/1.73 [id number] 10.0 secsINR 1.0 PTT 28.20 secs 08/28/2014 7:10 AM TEST UR NEGATIVE 08/29/2014 6:45 AM WBC 9.2 RBC 4.08 HGB 13.20 g/dLHCT 39.30 %MCV 96.0 fLH 32.40 [facility] [place] g/dLRDW CV 13.10 %MPV 10.30 fLPLT [...] CVX Influenza 06/02/2010 sanofi pasteur PMC Fluzone [id number] Intramuscular Left Deltoid 06/02/2010 02/25/2010 999 Influenza 05/09/2015 sanofi pasteur PMC Fluzone [id number] Intramuscular Left Deltoid 05/09/2015 02/22/2015 141 History [...] Policy Number Policy Group Number [id number] June [employer] Self [employer] Fund *[facility] Self Insurance [id number] N/A Comp [place] [id number] Wednesday, 2015 History of Encounters Visit Date Visit Type Provider 11/28/2015 Nurse visit Jessie Mock MEDICAL EQUIPMENT TECHNICIAN 11/27/2015 Office visit Jessie Mock MEDICAL EQUIPMENT TECHNICIAN 11/25/2015 Office visit Donte Hastings MEDICAL EQUIPMENT TECHNICIAN 11/18/2015 Nurse visit Donte Hastings MEDICAL EQUIPMENT TECHNICIAN 11/11/2015 Nurse visit Jessie Mock MEDICAL EQUIPMENT TECHNICIAN 11/04/2015 Nurse visit Donte Hastings MEDICAL EQUIPMENT TECHNICIAN 10/29/2015 Office visit Jessie Mock MEDICAL EQUIPMENT TECHNICIAN 10/28/2015 Nurse visit Jessie Mock MEDICAL EQUIPMENT TECHNICIAN 10/21/2015 Nurse visit Glenn Tejeda MD 10/15/2015 Nurse visit Francisco J Jesus DO 10/09/2015 Nurse visit Glenn Tejeda MD 10/02/2015 Office visit April Atkinson MEDICAL EQUIPMENT TECHNICIAN 10/01/2015 Nurse visit Jessie Mock MEDICAL EQUIPMENT TECHNICIAN 09/11/2015 Nurse visit Yvonne Cassidy MD [...] Office visit 05/29/2015 Office visit Karolyn Millan MEDICAL EQUIPMENT TECHNICIAN 05/29/2015 Nurse visit Yvonne Cassidy MD 05/14/2015 Nurse visit Francisco J Jesus DO 05/09/2015 Nurse visit Yvonne Cassidy MD 04/30/2015 Nurse visit Yvonne Cassidy MD 04/23/2015 Nurse visit Yvonne Cassidy MD 04/18/2015 Nurse visit Nidia Darby MEDICAL EQUIPMENT TECHNICIAN 04/09/2015 Nurse visit Yvonne Cassidy MD 04/01/2015 Nurse visit Yvonne Cassidy MD 03/27/[address] Cody Horvath MD 03/25/2015 [facility] Alexander Park MD 03/19/2015 Nurse visit Yvonne Cassidy MD 03/19/2015 Office visit Nidia Darby MEDICAL EQUIPMENT TECHNICIAN 03/04/2015 Nurse visit Yvonne Cassidy MD [...] Office visit 12/31/2014 Office visit Karolyn Millan MEDICAL EQUIPMENT TECHNICIAN 12/24/2014 Nurse visit Yvonne Cassidy MD 12/17/2014 Nurse visit Yvonne Cassidy MD 12/13/2014 Nurse visit Yvonne Cassidy MD 11/28/2014 Nurse visit Yvonne Cassidy MD 11/19/2014 Nurse visit Yvonne Cassidy MD 11/12/2014 Nurse visit Yvonne Cassidy MD 11/05/2014 Nurse visit Yvonne Cassidy MD 11/05/2014 [facility] Darin Park MD 10/29/2014 Nurse visit Yvonne Cassidy MD 10/24/2014 Nurse visit Yvonne Cassidy MD 10/15/2014 Nurse visit Yvonne Cassidy MD 10/11/2014 Office visit Karolyn Millan MEDICAL EQUIPMENT TECHNICIAN 10/09/2014 Nurse visit Yvonne Cassidy MD 10/04/2014 Nurse visit Yvonne Cassidy MD 09/19/2014 Surgery Karolyn Millan MEDICAL EQUIPMENT TECHNICIAN 09/13/2014 Office visit Yvonne Cassidy MD 09/06/2014 Nurse visit Yvonne Cassidy MD 08/28/2014 [facility] Chauncey Hogan MD 08/28/2014 [facility] Joe Thomas MD 08/23/2014 Nurse visit Yvonne Cassidy MD 08/22/2014 Surgery Joe Thomas MD 08/16/2014 Nurse visit Yvonne Cassidy MD 08/07/2014 Nurse visit Yvonne Cassidy MD 08/01/2014 Nurse visit Jessie Mock MEDICAL EQUIPMENT TECHNICIAN 07/25/2014 Nurse visit Nidia Darby MEDICAL EQUIPMENT TECHNICIAN 07/16/2014 Nurse visit Yvonne Cassidy MD [...] Cassidy MD 03/20/2014 Nurse visit Jessie Mock MEDICAL EQUIPMENT TECHNICIAN 03/13/2014 Nurse visit Donte Hastings MEDICAL EQUIPMENT TECHNICIAN 03/07/2014 Nurse visit Yvonne Cassidy MD 02/27/2014 Nurse visit Jessie Mock MEDICAL EQUIPMENT TECHNICIAN 02/20/2014 Nurse visit Donte Hastings MEDICAL EQUIPMENT TECHNICIAN 02/13/2014 Nurse visit Donte Hastings MEDICAL EQUIPMENT TECHNICIAN 02/13/2014 Procedures Joe Thomas MD 02/07/2014 Office visit Joe Thomas MD 02/06/2014 Nurse visit Yvonne Cassidy MD 01/17/2014 Nurse visit Nidia Darby MEDICAL EQUIPMENT TECHNICIAN 01/10/2014 Nurse visit Yvonne Cassidy MD 01/02/2014 Nurse visit Yvonne Cassidy MD 12/26/2013 Nurse visit Yvonne Cassidy MD 12/18/2013 Nurse visit Yvonne Cassidy MD 12/12/2013 Nurse visit Yvonne Cassidy MD 12/05/2013 Nurse visit Yvonne Cassidy MD 11/28/2013 Nurse visit Yvonne Cassidy MD 11/21/2013 Nurse visit Yvonne Cassidy MD 11/14/2013 Nurse visit Yvonne Cassidy MD 11/07/2013 Nurse visit Nidia Darby MEDICAL EQUIPMENT TECHNICIAN 10/31/2013 Nurse visit Nidia Darby MEDICAL EQUIPMENT TECHNICIAN 10/25/2013 Nurse visit Nidia Darby MEDICAL EQUIPMENT TECHNICIAN 10/18/2013 Voided Nidia Darby MEDICAL EQUIPMENT TECHNICIAN 10/10/2013 Voided Yvonne Cassidy MD 10/03/2013 [...] visit Bria Mart MD 06/02/2013 Office visit Jeo Thomas MD 06/01/2013 Office visit Joe Thomas MD 05/30/2013 Nurse visit Bria Mart MD 05/23/2013 Nurse visit Bria Mart MD 05/18/2013 Office visit Joe Thomas MD 05/15/2013 Nurse visit Bria Mart MD 05/09/2013 Nurse visit Bria Mart MD 05/01/2013 Nurse visit Bria Mart MD 04/18/2013 Nurse visit Nidia Darby MEDICAL EQUIPMENT TECHNICIAN 04/04/2013 Nurse visit Nidia Darby MEDICAL EQUIPMENT TECHNICIAN 03/28/2013 Nurse visit Nidia Darby MEDICAL EQUIPMENT TECHNICIAN 03/21/2013 Nurse visit Nidia Darby MEDICAL EQUIPMENT TECHNICIAN 03/13/2013 Nurse visit Nidia Darby MEDICAL EQUIPMENT TECHNICIAN 03/09/2013 Nurse visit Nidia Darby MEDICAL EQUIPMENT TECHNICIAN 03/02/2013 Nurse visit Nidia Darby MEDICAL EQUIPMENT TECHNICIAN 02/21/2013 Nurse visit Nidia Darby MEDICAL EQUIPMENT TECHNICIAN 02/13/2013 Office visit Nidia Darby MEDICAL EQUIPMENT TECHNICIAN 02/06/2013 Nurse visit Bria Mart MD [...] Mart MD 10/04/2012 Nurse visit Nidia Darby MEDICAL EQUIPMENT TECHNICIAN 09/27/2012 Nurse visit Bria Mart MD [...] Mart MD 06/07/2012 Nurse visit Nidia Darby MEDICAL EQUIPMENT TECHNICIAN 06/07/2012 Voided Francisco J Jesus DO [...] visit Bria Mart MD 08/06/2011 Office visit Bira Mart MD 07/28/2011 Nurse visit Bria Mart [...]
--- OUTSIDE RECORDS SUMMARY | 2017-05-06 20:58 | XMS REPORT ---
Author Author Yvonne Cassidy Organization [facility] Address [address] [place], [place] [address] Care Team Providers Care Chairman Ceo Name Role Phone Yvonne Cassidy PCP Yvonne [...] Reviewed 08/21/2011 12:00 AM Depo-Medrol 40 mg [facility]#[id number] Reviewed 03/02/2016 12:00 AM IMMUNOTHERAPY INJECTIONS Reviewed [...] Reviewed 11/27/2011 12:00 AM Depo-Medrol 40 mg [facility]#[id number] Reviewed 12/01/2011 12:00 AM IMMUNOTHERAPY INJECTIONS Reviewed [...] 02/13/2013 12:00 AM Decadron, Per 1 Mg [facility]# [address]-19 Reviewed 02/13/2013 12:00 AM Depo-Medrol, Per 80 Mg [facility]#9154-6355-61 Reviewed 06/05/2013 12:00 AM MAMMOGRAM SCREENING Reviewed [...] CVX Influenza 06/02/2010 sanofi pasteur PMC Fluzone [id number] Intramuscular Left Deltoid 06/02/2010 02/25/2010 999 Influenza 05/09/2015 sanofi pasteur PMC Fluzone [id number] Intramuscular Left Deltoid 05/09/2015 02/22/2015 141 Pneumococcal 06/29/2016 Xpbiv-Sfeyer-Riqpevg-Pratyesha WAL Prevnar 13 [id number] Intramuscular Right Deltoid 06/29/2016 09/14/2012 133 Zostavax [...] to other allergen May 03 2017 3:20PM Payers Insurance Name Company Name Plan Name Plan Number Policy Number Policy Group Number Start Date [employer] [place] [id number] June [facility] Self Insurance Fund *INVALID State Self Insurance [id number] N/A Comp [place] [id number] Wednesday, 2015 History of Encounters Visit Date Visit Type Provider 05/03/2017 Office visit Yvonne Cassidy MD 04/28/2017 Nurse visit Yvonne Cassidy MD 2017 Nurse visit Yvonne Cassidy MD 04/05/2017 Office visit Jessie Mock PROVIDER RELATIONS COORDINATOR 03/30/2017 Nurse visit Yvonne Cassidy MD 03/24/2017 [...] Yvonne Cassidy MD 12/30/2016 Nurse visit Yvonne Csasidy MD 12/22/2016 Nurse visit Yvonne Cassidy MD 12/08/2016 Nurse visit Donte Hastings PROVIDER RELATIONS COORDINATOR 12/02/2016 Nurse visit Yvonne Cassidy MD 11/16/2016 Nurse visit Yvonne Cassidy MD 11/10/2016 Nurse visit Yvonne Cassidy MD 11/02/2016 Nurse visit Donte Hastings PROVIDER RELATIONS COORDINATOR 10/28/2016 Nurse visit Yvonne Cassidy MD 10/06/2016 [...] Cassidy MD 07/14/2016 Nurse visit Donte Hastings PROVIDER RELATIONS COORDINATOR 07/06/2016 Nurse visit Yvonne Cassidy MD 06/29/2016 Nurse visit Yvonne Cassidy MD 06/24/2016 Nurse visit Yvonne Cassidy MD 06/16/2016 Office visit Yvonne Cassidy MD 06/14/2016 [facility] Alexander Park MD 06/09/2016 Nurse visit Yvonne Cassidy MD 06/02/2016 Office visit 06/02/2016 Office visit Karolyn Millan PROVIDER RELATIONS COORDINATOR 06/01/2016 Nurse visit Yvonne Cassidy MD 05/27/2016 Nurse visit Yvonne Cassidy MD 05/11/2016 Nurse visit Yvonne Cassidy MD 05/05/2016 Nurse visit Yvonne Cassidy MD 04/29/2016 Nurse visit Yvonne Cassidy MD 04/23/2016 Office visit Jessie Mock PROVIDER RELATIONS COORDINATOR 04/13/2016 Nurse visit Yvonne Cassidy MD 04/07/2016 Nurse visit Yvonne Cassidy MD 04/01/2016 Office visit Jessie Mock PROVIDER RELATIONS COORDINATOR 03/26/2016 Nurse visit Yvonne Cassidy MD 03/17/2016 Nurse visit Yvonne Cassidy MD 03/11/2016 Nurse visit Yvonne Cassidy MD 03/04/2016 Office visit Jessie Mock PROVIDER RELATIONS COORDINATOR 03/02/2016 Nurse visit Yvonne Cassidy MD 02/19/2016 Nurse visit Yvonne Cassidy MD 02/12/2016 Office visit Jessie Mock PROVIDER RELATIONS COORDINATOR 02/03/2016 Nurse visit Yvonne Cassidy MD 01/27/2016 Nurse visit Yvonne Cassidy MD 01/15/2016 Nurse visit Yvonne Cassidy MD 01/08/2016 Office visit Jessie Mock PROVIDER RELATIONS COORDINATOR 12/25/2015 Nurse visit Yvonne Cassidy MD 12/09/2015 Nurse visit Yvonne Cassidy MD 12/02/2015 Nurse visit Yvonne Cassidy MD 11/29/2015 Nurse visit Donte Hastings PROVIDER RELATIONS COORDINATOR 11/28/2015 Nurse visit Jessie Mock PROVIDER RELATIONS COORDINATOR 11/27/2015 Office visit Jessie Mock PROVIDER RELATIONS COORDINATOR 11/25/2015 Office visit Donte Hastings PROVIDER RELATIONS COORDINATOR 11/18/2015 Nurse visit Donte Hastings PROVIDER RELATIONS COORDINATOR 11/11/2015 Nurse visit Jessie Mock PROVIDER RELATIONS COORDINATOR 11/04/2015 Nurse visit Donte Hastings PROVIDER RELATIONS COORDINATOR 10/29/2015 Office visit Jessie Mock PROVIDER RELATIONS COORDINATOR 10/28/2015 Nurse visit Jessie Mock PROVIDER RELATIONS COORDINATOR 10/21/2015 Nurse visit Glenn Tejeda MD 10/15/2015 Nurse visit Francisco J Jesus DO 10/09/2015 Nurse visit Glenn Tejeda MD 10/02/2015 Office visit April Atkinson PROVIDER RELATIONS COORDINATOR 10/01/2015 Nurse visit Jessie Mock PROVIDER RELATIONS COORDINATOR 09/11/2015 Nurse visit Yvonne Cassidy MD [...] Office visit 05/29/2015 Office visit Karolyn Millan PROVIDER RELATIONS COORDINATOR 05/29/2015 Nurse visit Yvonne Cassidy MD 05/14/2015 Nurse visit Francisco J Jesus DO 05/09/2015 Nurse visit Yvonne Cassidy MD 04/30/2015 Nurse visit Yvonne Cassidy MD 04/23/2015 Nurse visit Yvonne Cassidy MD 04/18/2015 Nurse visit Nidia Darby PROVIDER RELATIONS COORDINATOR 04/09/2015 Nurse visit Yvonne Cassidy MD 04/01/2015 Nurse visit Yvonne Cassidy MD 03/27/[address] Cody Horvath MD 03/25/2015 [facility] Alexander Park MD 03/19/2015 Nurse visit Yvonne Cassidy MD 03/19/2015 Office visit Nidia Darby PROVIDER RELATIONS COORDINATOR 03/04/2015 Nurse visit Yvonne Cassidy MD [...] Office visit 12/31/2014 Office visit Karolyn Millan PROVIDER RELATIONS COORDINATOR 12/24/2014 Nurse visit Yvonne Cassidy MD [...] Cassidy MD 10/11/2014 Office visit Karolyn Millan PROVIDER RELATIONS COORDINATOR 10/09/2014 Nurse visit Yvonne Cassidy MD 10/04/2014 Nurse visit Yvonne Cassidy MD 09/19/2014 Surgery Karolyn Millan PROVIDER RELATIONS COORDINATOR 09/13/2014 Office visit Yvonne Cassidy MD 09/06/2014 Nurse visit Yvonne Cassidy MD 08/28/2014 [facility] Chauncey Hogan MD 08/28/2014 [facility] Joe Thomas MD 08/23/2014 Nurse visit Yvonne Cassidy MD 08/22/2014 Surgery Joe Thomas MD 08/16/2014 Nurse visit Yvonne Cassidy MD 08/07/2014 Nurse visit Yvonne Cassidy MD 08/01/2014 Nurse visit Jessie Mock PROVIDER RELATIONS COORDINATOR 07/25/2014 Nurse visit Nidia Darby PROVIDER RELATIONS COORDINATOR 07/16/2014 Nurse visit Yvonne Cassidy MD 07/09/2014 Nurse visit Yvonne Cassidy MD 07/03/2014 Nurse visit Yvonne Cassidy MD 06/28/2014 Nurse visit Yvonne Cassidy MD 06/20/2014 Nurse visit Yvonne Cassidy MD 06/12/2014 Nurse visit Yvonne Cassidy MD 05/30/2014 Nurse visit Yvonne Cassidy MD 05/21/2014 Nurse visit Yvonne Cassidy MD 05/15/2014 Nurse visit Yvonne Cassidy MD 05/09/2014 Office visit Joe Tohmas MD 05/08/2014 Nurse visit Yvonne Cassidy MD 04/30/2014 Office visit Yvonne Cassidy MD 2014 Nurse visit Yvonne Cassidy MD 04/10/2014 Nurse visit Yvonne Cassidy MD 04/02/2014 Nurse visit Yvonne Cassidy MD 03/26/2014 Nurse visit Yvonne Cassidy MD 03/20/2014 Nurse visit Jessie Mock PROVIDER RELATIONS COORDINATOR 03/13/2014 Nurse visit Donte Hastings PROVIDER RELATIONS COORDINATOR 03/07/2014 Nurse visit Yvonne Cassidy MD 02/27/2014 Nurse visit Jessie Mock PROVIDER RELATIONS COORDINATOR 02/20/2014 Nurse visit Donte Hastings PROVIDER RELATIONS COORDINATOR 02/13/2014 Nurse visit Donte Hastings PROVIDER RELATIONS COORDINATOR 02/13/2014 Procedures Joe Thomas MD 02/07/2014 Office visit Joe Thomas MD 02/06/2014 Nurse visit Yvonne Cassidy MD 01/17/2014 Nurse visit Nidia Darby PROVIDER RELATIONS COORDINATOR 01/10/2014 Nurse visit Yvonne Cassidy MD 01/02/2014 Nurse visit Yvonne Cassidy MD 12/26/2013 Nurse visit Yvonne Cassidy MD 12/18/2013 Nurse visit Yvonne Cassidy MD 12/12/2013 Nurse visit Yvonne Cassidy MD 12/05/2013 Nurse visit Yvonne Cassidy MD 11/28/2013 Nurse visit Yvonne Cassidy MD 11/21/2013 Nurse visit Yvonne Cassidy MD 11/14/2013 Nurse visit Yvonne Cassidy MD 11/07/2013 Nurse visit Nidia Darby PROVIDER RELATIONS COORDINATOR 10/31/2013 Nurse visit Nidia Darby PROVIDER RELATIONS COORDINATOR 10/25/2013 Nurse visit Nidia Darby PROVIDER RELATIONS COORDINATOR 10/18/2013 Voided Nidia Darby PROVIDER RELATIONS COORDINATOR 10/10/2013 Voided Yvonne Cassidy MD 10/03/2013 [...] Bria Mart MD 04/18/2013 Nurse visit Nidia Dabry PROVIDER RELATIONS COORDINATOR 04/04/2013 Nurse visit Nidia Darby PROVIDER RELATIONS COORDINATOR 03/28/2013 Nurse visit Nidia Darby PROVIDER RELATIONS COORDINATOR 03/21/2013 Nurse visit Nidia Darby PROVIDER RELATIONS COORDINATOR 03/13/2013 Nurse visit Nidia Darby PROVIDER RELATIONS COORDINATOR 03/09/2013 Nurse visit Nidia Darby PROVIDER RELATIONS COORDINATOR 03/02/2013 Nurse visit Nidia Darby PROVIDER RELATIONS COORDINATOR 02/21/2013 Nurse visit Nidia Darby PROVIDER RELATIONS COORDINATOR 02/13/2013 Office visit Nidia Darby PROVIDER RELATIONS COORDINATOR 02/06/2013 Nurse visit Bria Mart MD [...] Bria Mart MD 10/25/2012 Nurse visit Bria Mrat MD 10/18/2012 Nurse visit Bria Mart MD 10/11/2012 Nurse visit Bria Mart MD 10/04/2012 Nurse visit Nidia Darby PROVIDER RELATIONS COORDINATOR 09/27/2012 Nurse visit Bria Mart MD [...] Mart MD 06/07/2012 Nurse visit Nidia Darby PROVIDER RELATIONS COORDINATOR 06/07/2012 Voided Francisco J Jesus DO 06/01/2012 [...] Mart MD 09/08/2011 Office visit Jessie Mock PROVIDER RELATIONS COORDINATOR 09/01/2011 Nurse visit Bria Mart MD 08/21/2011 Office visit Bria Mart MD 08/12/2011 Nurse visit Bria Mart MD 08/06/2011 Office visit Bria Mart MD 07/28/2011 Nurse visit Bria Mart MD 07/21/2011 Office visit Bria Mart MD 07/16/2011 Nurse visit Bria aMrt MD 07/06/2011 Nurse visit Bria Mart MD [...]
--- OUTSIDE RECORDS SUMMARY | 2017-05-06 21:03 | XMS REPORT ---
Author Author Yvonne Cassidy Organization [facility] Address [address] [place], [place] [id number] Care Team Providers Care Sink Cutter Name Role Phone Yvonne Cassidy PCP Yvonne [...] AM Depo-Medrol 40 mg [facility]#[id number] Reviewed 03/02/2016 12:00 AM IMMUNOTHERAPY INJECTIONS Reviewed [...] AM Depo-Medrol 40 mg [facility]#[id number] Reviewed 12/01/2011 12:00 AM IMMUNOTHERAPY INJECTIONS Reviewed [...] Reviewed 02/17/2017 12:00 AM IMMUNOTHERAPY INJECTIONS Reviewed 03/29/2012 12:00 [...] Per 1 Mg [facility]# [address]-12 Reviewed 02/13/2013 12:00 AM Depo-Medrol, Per 80 Mg [facility]#6088-3580-03 Reviewed 06/05/2013 12:00 AM MAMMOGRAM SCREENING Reviewed [...] CVX Influenza 06/02/2010 sanofi pasteur PMC Fluzone [id number] Intramuscular Left Deltoid 06/02/2010 02/25/2010 999 Influenza 05/09/2015 sanofi pasteur PMC Fluzone [id number] Intramuscular Left Deltoid 05/09/2015 02/22/2015 141 Pneumococcal 06/29/2016 Vsyho-Xzzjad-BfrddusPratyesha [facility] Prevnar 13 [id number] Intramuscular Right Deltoid 06/29/2016 09/14/2012 133 Zostavax [...] to other allergen Feb 17 2017 3:57PM Payers Insurance Name Company Name Plan Name Plan Number Policy Number Policy Group Number Start Date [employer] [place] [id number] June [facility] Self Insurance Fund *INVALID State Self Insurance [id number] N/A Comp [place] [employer] [place] [id number] Wednesday, 2015 History of Encounters Visit Date Visit Type Provider 02/17/2017 Nurse visit Yvonne Cassidy MD 02/09/2017 Nurse visit Yvonne Cassidy MD 02/01/2017 Nurse visit Yvonne Cassidy MD 01/25/2017 Nurse visit Yvonne Cassidy MD 01/12/2017 Nurse visit Yvonne Cassidy MD 01/05/2017 Nurse visit Yvonne Cassidy MD 12/30/2016 Nurse visit Yvonne Casisdy MD 12/22/2016 Nurse visit Yvonne Cassidy MD [...] Office visit 06/02/2016 Office visit Karolyn Millan COMMERCIAL LINES INSURANCE AGENT 06/01/2016 Nurse visit Yvonne Cassidy MD 05/27/2016 Nurse visit Yvonne Cassidy MD 05/11/2016 Nurse visit Yvonne Cassidy MD 05/05/2016 Nurse visit Yvonne Cassidy MD 04/29/2016 Nurse visit Yvonne Cassidy MD 04/23/2016 Office visit Jessie Mock COMMERCIAL LINES INSURANCE AGENT 04/13/2016 Nurse visit Yvonne Cassidy MD 04/07/2016 Nurse visit Yvonne Cassidy MD 04/01/2016 Office visit Jessie Mock COMMERCIAL LINES INSURANCE AGENT 03/26/2016 Nurse visit Yvonne Cassidy MD 03/17/2016 Nurse visit Yvonne Cassidy MD 03/11/2016 Nurse visit Yvonne Cassidy MD 03/04/2016 Office visit Jessie Mock COMMERCIAL LINES INSURANCE AGENT 03/02/2016 Nurse visit Yvonne Cassidy MD 02/19/2016 Nurse visit Yvonne Cassidy MD 02/12/2016 Office visit Jessie Mock COMMERCIAL LINES INSURANCE AGENT 02/03/2016 Nurse visit Yvonne Cassidy MD 01/27/2016 Nurse visit Yvonne Cassidy MD 01/15/2016 Nurse visit Yvonne Cassidy MD 01/08/2016 Office visit Jessie Mock COMMERCIAL LINES INSURANCE AGENT 12/25/2015 Nurse visit Yvonne Cassidy MD 12/09/2015 Nurse visit Yvonne Cassidy MD 12/02/2015 Nurse visit Yvonne Cassidy MD 11/29/2015 Nurse visit Donte Hastings COMMERCIAL LINES INSURANCE AGENT 11/28/2015 Nurse visit Jessie Mock COMMERCIAL LINES INSURANCE AGENT 11/27/2015 Office visit Jessie Mock COMMERCIAL LINES INSURANCE AGENT 11/25/2015 Office visit Donte Hastings COMMERCIAL LINES INSURANCE AGENT 11/18/2015 Nurse visit Donte Hastings COMMERCIAL LINES INSURANCE AGENT 11/11/2015 Nurse visit Jessie Mock COMMERCIAL LINES INSURANCE AGENT 11/04/2015 Nurse visit Donte Hastings COMMERCIAL LINES INSURANCE AGENT 10/29/2015 Office visit Jessie Mock COMMERCIAL LINES INSURANCE AGENT 10/28/2015 Nurse visit Jessie Mock COMMERCIAL LINES INSURANCE AGENT 10/21/2015 Nurse visit Glenn Tejeda MD 10/15/2015 Nurse visit Francisco J Jesus DO 10/09/2015 Nurse visit Glenn Tejeda MD 10/02/2015 Office visit Apriljoana Sotelogordy COMMERCIAL LINES INSURANCE AGENT 10/01/2015 Nurse visit Jessie Mock COMMERCIAL LINES INSURANCE AGENT 09/11/2015 Nurse visit Yvonne Cassidy MD 09/05/2015 [...] Office visit 05/29/2015 Office visit Karolyn Millan COMMERCIAL LINES INSURANCE AGENT 05/29/2015 Nurse visit Yvonne Cassidy MD 05/14/2015 Nurse visit Francisco J Jesus DO 05/09/2015 Nurse visit Yvonne Cassidy MD 04/30/2015 Nurse visit Yvonne Cassidy MD 04/23/2015 Nurse visit Yvonne Cassidy MD 04/18/2015 Nurse visit Nidia Darby COMMERCIAL LINES INSURANCE AGENT 04/09/2015 Nurse visit Yvonne Cassidy MD 04/01/2015 Nurse visit Yvonne Cassidy MD 03/27/[address] Cody Horvath MD 03/25/2015 [facility] Alexander Park MD 03/19/2015 Nurse visit Yvonne Cassidy MD 03/19/2015 Office visit Nidia Darby COMMERCIAL LINES INSURANCE AGENT 03/04/2015 Nurse visit Yvonne Cassidy MD [...] Office visit 12/31/2014 Office visit Karolyn Millan COMMERCIAL LINES INSURANCE AGENT 12/24/2014 Nurse visit Yvonne Cassidy MD 12/17/2014 Nurse visit Yvonne Cassidy MD 12/13/2014 Nurse visit Yvonne Cassidy MD 11/28/2014 Nurse visit Yvonne Cassidy MD 11/19/2014 Nurse visit Yvonne Cassidy MD 11/12/2014 Nurse visit Yvonne Cassidy MD 11/05/2014 Nurse visit Yvonne Cassidy MD 11/05/2014 [facility] Darin Park MD 10/29/2014 Nurse visit Yvonne Cassidy MD 10/24/2014 Nurse visit Yvonne Cassidy MD 10/15/2014 Nurse visit Yvonne Cassidy MD 10/11/2014 Office visit Karolyn MZafar Millan COMMERCIAL LINES INSURANCE AGENT 10/09/2014 Nurse visit Yvonne Cassidy MD 10/04/2014 Nurse visit Yvonne Cassidy MD 09/19/2014 Surgery Karolyn DowlingZafar Millan COMMERCIAL LINES INSURANCE AGENT 09/13/2014 Office visit Yvonne Cassidy MD 09/06/2014 Nurse visit Yvonne Cassidy MD 08/28/2014 [facility] Chauncey Hogan MD 08/28/2014 [facility] Joe Thomas MD 08/23/2014 Nurse visit Yvonne Cassidy MD 08/22/2014 Surgery Joe Thomas MD 08/16/2014 Nurse visit Yvonne Cassidy MD 08/07/2014 Nurse visit Yvonne Cassidy MD 08/01/2014 Nurse visit Jessie Mock COMMERCIAL LINES INSURANCE AGENT 07/25/2014 Nurse visit Nidia Darby COMMERCIAL LINES INSURANCE AGENT 07/16/2014 Nurse visit Yvonne Cassidy MD [...] Cassidy MD 03/20/2014 Nurse visit Jessie Mock COMMERCIAL LINES INSURANCE AGENT 03/13/2014 Nurse visit Donte Hastings COMMERCIAL LINES INSURANCE AGENT 03/07/2014 Nurse visit Yvonne Cassidy MD 02/27/2014 Nurse visit Jessie Mock COMMERCIAL LINES INSURANCE AGENT 02/20/2014 Nurse visit Donte Hastings COMMERCIAL LINES INSURANCE AGENT 02/13/2014 Nurse visit Donte Hastings COMMERCIAL LINES INSURANCE AGENT 02/13/2014 Procedures Joe Thomas MD 02/07/2014 Office visit Joe Thomas MD 02/06/2014 Nurse visit Yvonne Cassidy MD 01/17/2014 Nurse visit Nidia Darby COMMERCIAL LINES INSURANCE AGENT 01/10/2014 Nurse visit Yvonne Cassidy MD 01/02/2014 Nurse visit Yvonne Cassidy MD 12/26/2013 Nurse visit Yvonne Cassidy MD 12/18/2013 Nurse visit Yvonne Cassidy MD 12/12/2013 Nurse visit Yvonne Cassidy MD 12/05/2013 Nurse visit Yvonne Cassidy MD 11/28/2013 Nurse visit Yvonne Cassidy MD 11/21/2013 Nurse visit Yvonne Cassidy MD 11/14/2013 Nurse visit Yvonne Cassidy MD 11/07/2013 Nurse visit Nidia Darby COMMERCIAL LINES INSURANCE AGENT 10/31/2013 Nurse visit Nidia Darby COMMERCIAL LINES INSURANCE AGENT 10/25/2013 Nurse visit Nidia Darby COMMERCIAL LINES INSURANCE AGENT 10/18/2013 Voided Nidia Darby COMMERCIAL LINES INSURANCE AGENT 10/10/2013 Voided Yvonne Cassidy MD 10/03/2013 [...] Mrat MD 04/18/2013 Nurse visit Nidia Darby COMMERCIAL LINES INSURANCE AGENT 04/04/2013 Nurse visit Nidia Darby COMMERCIAL LINES INSURANCE AGENT 03/28/2013 Nurse visit Nidia Darby COMMERCIAL LINES INSURANCE AGENT 03/21/2013 Nurse visit Nidia Darby COMMERCIAL LINES INSURANCE AGENT 03/13/2013 Nurse visit Nidia Darby COMMERCIAL LINES INSURANCE AGENT 03/09/2013 Nurse visit Nidia Darby COMMERCIAL LINES INSURANCE AGENT 03/02/2013 Nurse visit Nidia Darby COMMERCIAL LINES INSURANCE AGENT 02/21/2013 Nurse visit Nidia Darby COMMERCIAL LINES INSURANCE AGENT 02/13/2013 Office visit Nidia Darby COMMERCIAL LINES INSURANCE AGENT 02/06/2013 Nurse visit Bria Mart MD [...] Mart MD 10/04/2012 Nurse visit Nidia Darby COMMERCIAL LINES INSURANCE AGENT 09/27/2012 Nurse visit Bria Mart MD [...] Mart MD 06/07/2012 Nurse visit Nidia Darby COMMERCIAL LINES INSURANCE AGENT 06/07/2012 Voided Francisco J Jesus DO [...] Mart MD 09/08/2011 Office visit Jessie Mock COMMERCIAL LINES INSURANCE AGENT 09/01/2011 Nurse visit Bria Mart MD [...]
--- OUTSIDE RECORDS SUMMARY | 2017-05-06 21:06 | XMS REPORT ---
Author Author Jessie Mock [facility] Address [address] [place], [place] [id number] Care Team Providers Care Drum Sprayer Name Role Phone Jessie Mock PCP Unavailable [...] Reviewed 08/21/2011 12:00 AM Depo-Medrol 40 mg [facility]#[id number] Reviewed 09/08/2011 12:00 AM IMMUNOTHERAPY INJECTIONS Reviewed [...] Reviewed 11/27/2011 12:00 AM Depo-Medrol 40 mg [facility]#[id number] Reviewed 12/01/2011 12:00 AM IMMUNOTHERAPY INJECTIONS Reviewed [...] 12:00 AM Decadron, Per 1 Mg [facility]# [address]-71 Reviewed 02/13/2013 12:00 AM Depo-Medrol, Per 80 Mg [facility]#5840-1267-84 Reviewed 06/05/2013 12:00 AM MAMMOGRAM SCREENING Returned [...] BILI 0.50 mg/dLCALCIUM 10.10 mg/dLeGFR >60 mL/min/1.73 m1LHNAUIL 10.0 secsINR 1.0 PTT 28.20 secs 08/28/2014 [...] CVX Influenza 06/02/2010 sanofi pasteur PMC Fluzone [id number] Intramuscular Left Deltoid 06/02/2010 02/25/2010 999 Influenza 05/09/2015 sanofi pasteur PMC Fluzone [id number] Intramuscular Left Deltoid 05/09/2015 02/22/2015 141 History [...] Group Number Start Date [employer] [place] [id number] June [facility] Self Insurance Fund *INVALID State Self Insurance [id number] N/A Comp [facility] [facility] [id number] Wednesday, 2015 History of Encounters Visit Date Visit Type Provider 02/12/2016 Office visit Jessie Mock ASIAN STUDIES PROFESSOR 02/03/2016 Nurse visit Yvonne Cassidy MD 01/27/2016 Nurse visit Yvonne Cassidy MD 01/15/2016 Nurse visit Yvonne Cassidy MD 01/08/2016 Office visit Jessie Mock ASIAN STUDIES PROFESSOR 12/25/2015 Nurse visit Yvonne Cassidy MD 12/09/2015 Nurse visit Yvonne Cassidy MD 12/02/2015 Nurse visit Yvonne Cassidy MD 11/29/2015 Nurse visit Donte Hastings ASIAN STUDIES PROFESSOR 11/28/2015 Nurse visit Jessie Mock ASIAN STUDIES PROFESSOR 11/27/2015 Office visit Jessie Mock ASIAN STUDIES PROFESSOR 11/25/2015 Office visit Donte Hastings ASIAN STUDIES PROFESSOR 11/18/2015 Nurse visit Donte Hastings ASIAN STUDIES PROFESSOR 11/11/2015 Nurse visit Jessie Mock ASIAN STUDIES PROFESSOR 11/04/2015 Nurse visit Donte Hastings ASIAN STUDIES PROFESSOR 10/29/2015 Office visit Jessie Mock ASIAN STUDIES PROFESSOR 10/28/2015 Nurse visit Jessie Mock ASIAN STUDIES PROFESSOR 10/21/2015 Nurse visit Glenn Tejeda MD 10/15/2015 Nurse visit Francisco J Jesus DO 10/09/2015 Nurse visit Glenn Tejeda MD 10/02/2015 Office visit April Atkinson ASIAN STUDIES PROFESSOR 10/01/2015 Nurse visit Jessie Mock ASIAN STUDIES PROFESSOR 09/11/2015 Nurse visit Yvonne Cassidy MD [...] Office visit 05/29/2015 Office visit Karolyn Millan ASIAN STUDIES PROFESSOR 05/29/2015 Nurse visit Yvonne Cassidy MD 05/14/2015 Nurse visit Francisco J Danielsonnola ISSA 05/09/2015 Nurse visit Yvonne Cassidy MD 04/30/2015 Nurse visit Yvonne Cassidy MD 04/23/2015 Nurse visit Yvonne Cassidy MD 04/18/2015 Nurse visit Nidia Darby ASIAN STUDIES PROFESSOR 04/09/2015 Nurse visit Yvonne Cassidy MD 04/01/2015 Nurse visit Yvonne Cassidy MD 03/27/[address] Cody Horvath MD 03/25/2015 [facility] Alexander Park MD 03/19/2015 Nurse visit Yvonne Cassidy MD 03/19/2015 Office visit Nidia Darby ASIAN STUDIES PROFESSOR 03/04/2015 Nurse visit Yvonne Cassidy MD [...] Office visit 12/31/2014 Office visit Karolyn Millan ASIAN STUDIES PROFESSOR 12/24/2014 Nurse visit Yvonne Cassidy MD [...] Cassidy MD 10/11/2014 Office visit Karolyn Millan ASIAN STUDIES PROFESSOR 10/09/2014 Nurse visit Yvonne Cassidy MD 10/04/2014 Nurse visit Yvonne Cassidy MD 09/19/2014 Surgery Karolyn Millan ASIAN STUDIES PROFESSOR 09/13/2014 Office visit Yvonne Cassidy MD 09/06/2014 Nurse visit Yvonne Cassidy MD 08/28/2014 [facility] Chauncey Hogan MD 08/28/2014 [facility] Joe Thomas MD 08/23/2014 Nurse visit Yvonne Cassidy MD 08/22/2014 Surgery Joe Thomas MD 08/16/2014 Nurse visit Yvonne Cassidy MD 08/07/2014 Nurse visit Yvonne Cassidy MD 08/01/2014 Nurse visit Jessie Mock ASIAN STUDIES PROFESSOR 07/25/2014 Nurse visit Nidia Darby ASIAN STUDIES PROFESSOR 07/16/2014 Nurse visit Yvonne Cassidy MD [...] Cassidy MD 03/20/2014 Nurse visit Jessie Mock ASIAN STUDIES PROFESSOR 03/13/2014 Nurse visit Donte Hastings ASIAN STUDIES PROFESSOR 03/07/2014 Nurse visit Yvonne Cassidy MD 02/27/2014 Nurse visit Jessie Mock ASIAN STUDIES PROFESSOR 02/20/2014 Nurse visit Donte Hastings ASIAN STUDIES PROFESSOR 02/13/2014 Nurse visit Donte Hastings ASIAN STUDIES PROFESSOR 02/13/2014 Procedures Joe Thomas MD 02/07/2014 Office visit Joe Thomas MD 02/06/2014 Nurse visit Yvonne Cassidy MD 01/17/2014 Nurse visit Nidia Darby ASIAN STUDIES PROFESSOR 01/10/2014 Nurse visit Yvonne Cassidy MD 01/02/2014 Nurse visit Yvonne Cassidy MD 12/26/2013 Nurse visit Yvonne Cassidy MD 12/18/2013 Nurse visit Yvonne Cassidy MD 12/12/2013 Nurse visit Yvonne Cassidy MD 12/05/2013 Nurse visit Yvonne Cassdiy MD 11/28/2013 Nurse visit Yvonne Cassidy MD 11/21/2013 Nurse visit Yvonne Cassidy MD 11/14/2013 Nurse visit Yvonne Cassidy MD 11/07/2013 Nurse visit Nidia Darby ASIAN STUDIES PROFESSOR 10/31/2013 Nurse visit Nidia Darby ASIAN STUDIES PROFESSOR 10/25/2013 Nurse visit Nidia Darby ASIAN STUDIES PROFESSOR 10/18/2013 Voided Nidia Darby ASIAN STUDIES PROFESSOR 10/10/2013 Voided Yvonne Cassidy MD 10/03/2013 [...] MD 04/18/2013 Nurse visit Nidia GonzalesZafar Darby ASIAN STUDIES PROFESSOR 04/04/2013 Nurse visit Nidia GonzalesZafar Wilner ASIAN STUDIES PROFESSOR 03/28/2013 Nurse visit Nidia GonzalesZafar Wilner ASIAN STUDIES PROFESSOR 03/21/2013 Nurse visit Nidia GonzalesaZfar Wilner ASIAN STUDIES PROFESSOR 03/13/2013 Nurse visit Nidia GonzalesZafar Darby ASIAN STUDIES PROFESSOR 03/09/2013 Nurse visit Nidia GonzalesZafar Darby ASIAN STUDIES PROFESSOR 03/02/2013 Nurse visit Nidia GonzalesZafar Darby ASIAN STUDIES PROFESSOR 02/21/2013 Nurse visit Nidia Sheridan Darby ASIAN STUDIES PROFESSOR 02/13/2013 Office visit Nidia Darby ASIAN STUDIES PROFESSOR 02/06/2013 Nurse visit Bria Mart MD [...] Mart MD 10/04/2012 Nurse visit Nidia Darby ASIAN STUDIES PROFESSOR 09/27/2012 Nurse visit Bria Mart MD [...] MD 06/07/2012 Nurse visit Nidia GonzalesZafar Darby ASIAN STUDIES PROFESSOR 06/07/2012 Voided Francisco J Jesus 06/01/2012 Office [...] Mart MD 09/08/2011 Office visit Jessie Nish ASIAN STUDIES PROFESSOR 09/01/2011 Nurse visit Bria Mart MD [...]
--- OUTSIDE RECORDS SUMMARY | 2017-05-06 21:11 | XMS REPORT ---
Author Author Donte Hastings [facility] Address [address] [place], [place] [address] Care Team Providers Care Row Boss Hoeing Name Role Phone Donte Hastings PCP Yvonne [...] AM Depo-Medrol 40 mg [facility]#[id number] Reviewed 03/02/2016 12:00 AM IMMUNOTHERAPY INJECTIONS Reviewed [...] AM Depo-Medrol 40 mg [facility]#[id number] Reviewed 12/01/2011 12:00 AM IMMUNOTHERAPY INJECTIONS Reviewed [...] 02/13/2013 12:00 AM Decadron, Per 1 Mg [facility]# [address]-60 Reviewed 02/13/2013 12:00 AM Depo-Medrol, Per 80 Mg [facility]#2474-4810-83 Reviewed 06/05/2013 12:00 AM MAMMOGRAM SCREENING Reviewed [...] CVX Influenza 06/02/2010 sanofi pasteur PMC Fluzone [id number] Intramuscular Left Deltoid 06/02/2010 02/25/2010 999 Influenza 05/09/2015 sanofi pasteur PMC Fluzone [id number] Intramuscular Left Deltoid 05/09/2015 02/22/2015 141 Pneumococcal 06/29/2016 [facility] Prevnar 13 [id number] Intramuscular Right Deltoid 06/29/2016 09/14/2012 133 History [...] to other allergen Jul 14 2016 2:18PM Payers Insurance Name Company Name Plan Name Plan Number Policy Number Policy Group Number Start Date [facility] [id number] June [facility] Self [facility] Fund *INVALID State Self Insurance [id number] N/A [place] [id number] Wednesday, 2015 History of Encounters Visit Date Visit Type Provider 07/14/2016 Nurse visit Donte Hastings STITCH WHEELER 07/06/2016 Nurse visit Yvonne Cassidy MD 06/29/2016 Nurse visit Yvonne Cassidy MD 06/24/2016 Nurse visit Yvonne Cassidy MD 06/16/2016 Office visit Yvonne Cassidy MD 06/09/2016 Nurse visit Yvonne Cassidy MD 06/02/2016 Office visit 06/02/2016 Office visit Karolyn Millan STITCH WHEELER 06/01/2016 Nurse visit Yvonne Cassidy MD 05/27/2016 Nurse visit Yvonne Cassidy MD 05/11/2016 Nurse visit Yvonne Cassidy MD 05/05/2016 Nurse visit Yvonne Cassidy MD 04/29/2016 Nurse visit Yvonne Cassidy MD 04/23/2016 Office visit Jessie Mock STITCH WHEELER 04/13/2016 Nurse visit Yvonne Cassidy MD 04/07/2016 Nurse visit Yvonne Cassidy MD 04/01/2016 Office visit Jessie Mock STITCH WHEELER 03/26/2016 Nurse visit Yvonne Cassidy MD 03/17/2016 Nurse visit Yvonne Cassidy MD 03/11/2016 Nurse visit Yvonne Cassidy MD 03/04/2016 Office visit Jessie Mock STITCH WHEELER 03/02/2016 Nurse visit Yvonne Cassidy MD 02/19/2016 Nurse visit Yvonne Cassidy MD 02/12/2016 Office visit Jessie Mock STITCH WHEELER 02/03/2016 Nurse visit Yvonne Cassidy MD 01/27/2016 Nurse visit Yvonne Cassidy MD 01/15/2016 Nurse visit Yvonne Cassidy MD 01/08/2016 Office visit Jessie Mock STITCH WHEELER 12/25/2015 Nurse visit Yvonne Cassidy MD 12/09/2015 Nurse visit Yvonne Cassidy MD 12/02/2015 Nurse visit Yvonne Cassidy MD 11/29/2015 Nurse visit Donte Hastings STITCH WHEELER 11/28/2015 Nurse visit Jessie Nish STITCH WHEELER 11/27/2015 Office visit Jessie Mock STITCH WHEELER 11/25/2015 Office visit Donte Hastings STITCH WHEELER 11/18/2015 Nurse visit Donte Hastings STITCH WHEELER 11/11/2015 Nurse visit Jessie Nish STITCH WHEELER 11/04/2015 Nurse visit Donte Hastings STITCH WHEELER 10/29/2015 Office visit Jessie Mock STITCH WHEELER 10/28/2015 Nurse visit Jessie Nish STITCH WHEELER 10/21/2015 Nurse visit Glenn Tejeda MD 10/15/2015 Nurse visit Francisco J Jesus DO 10/09/2015 Nurse visit Glenn Tejeda MD 10/02/2015 Office visit April Atkinson STITCH WHEELER 10/01/2015 Nurse visit Jessie Mock STITCH WHEELER 09/11/2015 Nurse visit Yvonne Cassidy MD 09/05/2015 [...] Office visit 05/29/2015 Office visit Karolyn Millan STITCH WHEELER 05/29/2015 Nurse visit Yvonne Cassidy MD 05/14/2015 Nurse visit Francisco J Danielsonhite 05/09/2015 Nurse visit Yvonne Cassidy MD 04/30/2015 Nurse visit Yvonne Cassidy MD 04/23/2015 Nurse visit Yvonne Cassidy MD 04/18/2015 Nurse visit Nidia Darby STITCH WHEELER 04/09/2015 Nurse visit Yvonne Cassidy MD 04/01/2015 Nurse visit Yvonne Cassidy MD 03/27/[address] Cody Horvath MD 03/25/2015 [facility] Darin Park MD 03/19/2015 Nurse visit Yvonne Cassidy MD 03/19/2015 Office visit Nidia Darby STITCH WHEELER 03/04/2015 Nurse visit Yvonne Cassidy MD 02/25/2015 [...] Office visit 12/31/2014 Office visit Karolyn Millan STITCH WHEELER 12/24/2014 Nurse visit Yvonne Cassidy MD 12/17/2014 [...] Cassidy MD 10/11/2014 Office visit Karolyn Millan STITCH WHEELER 10/09/2014 Nurse visit Yvonne Cassidy MD 10/04/2014 Nurse visit Yvonne Cassidy MD 09/19/2014 Surgery Karolyn Millan STITCH WHEELER 09/13/2014 Office visit Yvonne Cassidy MD 09/06/2014 Nurse visit Yvonne Cassidy MD 08/28/2014 [facility] Chauncey Hogan MD 08/28/2014 [facility] Joe Thomas MD 08/23/2014 Nurse visit Yvonne Cassidy MD 08/22/2014 Surgery Joe Thomas MD 08/16/2014 Nurse visit Yvonne Cassidy MD 08/07/2014 Nurse visit Yvonne Cassidy MD 08/01/2014 Nurse visit Jessie Mock STITCH WHEELER 07/25/2014 Nurse visit Nidia Darby STITCH WHEELER 07/16/2014 Nurse visit Yvonne Cassidy MD 07/09/2014 [...] Cassidy MD 03/20/2014 Nurse visit Jessie Mock STITCH WHEELER 03/13/2014 Nurse visit Donte Hastings STITCH WHEELER 03/07/2014 Nurse visit Yvonne Cassidy MD 02/27/2014 Nurse visit Jessie Mock STITCH WHEELER 02/20/2014 Nurse visit Donte Hastings STITCH WHEELER 02/13/2014 Nurse visit Donte Hastings STITCH WHEELER 02/13/2014 Procedures Joe Thomas MD 02/07/2014 Office visit Joe Thomas MD 02/06/2014 Nurse visit Yvonne Cassidy MD 01/17/2014 Nurse visit Nidia Darby STITCH WHEELER 01/10/2014 Nurse visit Yvonne Cassidy MD 01/02/2014 Nurse visit Yvonne Cassidy MD 12/26/2013 Nurse visit Yvonne Cassidy MD 12/18/2013 Nurse visit Yvonne Cassidy MD 12/12/2013 Nurse visit vYonne Cassidy MD 12/05/2013 Nurse visit Yvonne Cassidy MD 11/28/2013 Nurse visit Yvonne Cassidy MD 11/21/2013 Nurse visit Yvonne Cassidy MD 11/14/2013 Nurse visit Yvonne Cassidy MD 11/07/2013 Nurse visit Nidia Darby STITCH WHEELER 10/31/2013 Nurse visit Nidia Darby STITCH WHEELER 10/25/2013 Nurse visit Nidia Darby STITCH WHEELER 10/18/2013 Voided Nidia Darby STITCH WHEELER 10/10/2013 Voided Yvonne Cassidy MD 10/03/2013 Nurse visit Yvonne Cassidy MD 09/18/2013 Office visit Yvonne Cassidy MD 09/15/2013 Nurse visit Yvonne Cassidy MD 09/08/2013 Office visit Joe Thomas MD 09/05/2013 Nurse visit Yvonne Cassdiy MD 08/29/2013 Nurse visit Yvonne Cassidy MD [...] Mart MD 04/18/2013 Nurse visit Nidia Darby STITCH WHEELER 04/04/2013 Nurse visit Nidia Darby STITCH WHEELER 03/28/2013 Nurse visit Nidia GonzalesZafar Wilner STITCH WHEELER 03/21/2013 Nurse visit Nidia GonzalesZafar Darby STITCH WHEELER 03/13/2013 Nurse visit Nidia Darby STITCH WHEELER 03/09/2013 Nurse visit Nidia GonzalesZafar Wilner STITCH WHEELER 03/02/2013 Nurse visit Nidia Sheridan Darby STITCH WHEELER 02/21/2013 Nurse visit Nidia Sheridan Darby STITCH WHEELER 02/13/2013 Office visit Nidia Darby STITCH WHEELER 02/06/2013 Nurse visit Bria Mart MD 01/31/2013 [...] Mart MD 10/04/2012 Nurse visit Nidia Darby STITCH WHEELER 09/27/2012 Nurse visit rBia Mart MD 09/22/2012 Nurse visit Bria Mart [...] MD 06/07/2012 Nurse visit Nidia Sheridan Darby STITCH WHEELER 06/07/2012 Voided Francisco J Jesus 06/01/2012 Office [...]
--- OUTSIDE RECORDS SUMMARY | 2017-05-06 21:14 | XMS REPORT ---
Author Author Yvonne Cassidy Organization [facility] Address [address] [place], [place] [id number] Care Team Providers Care [employer] Equipment Operator Name Role Phone Yvonne Cassidy PCP [...] BILI 0.50 mg/dLCALCIUM 10.10 mg/dLeGFR >60 mL/min/1.73 o9ELVGCVN 10.0 secsINR 1.0 PTT 28.20 secs 08/28/2014 [...] Vis [id number] Intramuscular Left Deltoid 06/02/2010 02/25/2010 999 History [...] 4:51PM Breast lump Jan 07 2015 1:05PM Payers Insurance Name Company Name Plan Name Plan Number Policy Number Policy Group Number Start Date [employer] [place] [id number] [place] Self Insurance Fund *INVALID State Self Insurance [id number] N /A History of Encounters Visit Date Visit Type Provider 12/31/2014 Office visit Karolyn Millan [employer]MING [employer]UBE SELECTOR 12/31/2014 Nurse visit Yvonne Cassidy MD 12/24/2014 [...] Cassidy MD 10/11/2014 Office visit Karolyn Millan FORMING TUBE SELECTOR 10/09/2014 Nurse visit Yvonne Cassidy MD 10/04/2014 Nurse visit Yvonne Cassidy MD 09/19/2014 Surgery Karolyn Millan FORMING TUBE SELECTOR 09/13/2014 Office visit Yvonne Cassidy MD 09/06/2014 Nurse visit Yvonne Cassidy MD 08/28/2014 [facility] Joe Thomas MD 08/28/2014 [facility] Chauncey Hogan MD 08/23/2014 Nurse visit Yvonne Cassidy MD 08/22/2014 Surgery Joe Thomas MD 08/16/2014 Nurse visit Yvonne Cassidy MD 08/07/2014 Nurse visit Yvonne Cassidy MD 08/01/2014 Nurse visit Jessie Mock FORMING TUBE SELECTOR 07/25/2014 Nurse visit Nidia Darby FORMING TUBE SELECTOR 07/16/2014 Nurse visit Yvonne Cassidy MD 07/09/2014 [...] Cassidy MD 03/20/2014 Nurse visit Jessie Mock FORMING TUBE SELECTOR 03/13/2014 Nurse visit Donte Hastings FORMING TUBE SELECTOR 03/07/2014 Nurse visit Yvonne Cassidy MD 02/27/2014 Nurse visit Jessie Mock FORMING TUBE SELECTOR 02/20/2014 Nurse visit Donte Hastings FORMING TUBE SELECTOR 02/13/2014 Procedures Joe Thomas MD 02/13/2014 Nurse visit Donte Hastings FORMING TUBE SELECTOR 02/07/2014 Office visit Joe Thomas MD 02/06/2014 Nurse visit Yvonne Cassidy MD 01/17/2014 Nurse visit Nidia Darby FORMING TUBE SELECTOR 01/10/2014 Nurse visit Yvonne Cassidy MD 01/02/2014 Nurse visit Yvonne Cassidy MD 12/26/2013 Nurse visit Yvonne Cassidy MD 12/18/2013 Nurse visit Yvonne Cassidy MD 12/12/2013 Nurse visit Yvonne Cassidy MD 12/05/2013 Nurse visit Yvonne Cassidy MD 11/28/2013 Nurse visit Yvonne Cassidy MD 11/21/2013 Nurse visit Yvonne Cassidy MD 11/14/2013 Nurse visit Yvonne Cassidy MD 11/07/2013 Nurse visit Nidia Darby FORMING TUBE SELECTOR 10/31/2013 Nurse visit Nidia Darby FORMING TUBE SELECTOR 10/25/2013 Nurse visit Nidia Darby FORMING TUBE SELECTOR 10/18/2013 Voided Nidia Darby FORMING TUBE SELECTOR 10/10/2013 Voided Yvonne Cassidy MD 10/03/2013 Nurse [...] Mart MD 04/18/2013 Nurse visit Nidia Darby FORMING TUBE SELECTOR 04/04/2013 Nurse visit Nidia Darby FORMING TUBE SELECTOR 03/28/2013 Nurse visit Nidia Darby FORMING TUBE SELECTOR 03/21/2013 Nurse visit Nidia Darby FORMING TUBE SELECTOR 03/13/2013 Nurse visit Nidia Darby FORMING TUBE SELECTOR 03/09/2013 Nurse visit Nidia Darby FORMING TUBE SELECTOR 03/02/2013 Nurse visit Nidia Darby FORMING TUBE SELECTOR 02/21/2013 Nurse visit Nidia Darby FORMING TUBE SELECTOR 02/13/2013 Office visit Nidia Darby FORMING TUBE SELECTOR 02/06/2013 Nurse visit Bria Mart MD 01/31/2013 [...] Mart MD 10/04/2012 Nurse visit Nidia Darby FORMING TUBE SELECTOR 09/27/2012 Nurse visit Bria Mart MD 09/22/2012 [...] Jesus DO 06/07/2012 Nurse visit Nidia Darby FORMING TUBE SELECTOR 06/01/2012 Office visit Bria Mart MD 05/24/2012 [...] Mart MD 09/08/2011 Office visit Jessie Mock FORMING TUBE SELECTOR 09/08/2011 Nurse visit Bria Mart MD 09/01/2011 [...]
--- OUTSIDE RECORDS SUMMARY | 2017-05-06 21:15 | XMS REPORT | Continuity of Care Document ---
Author Author [facility] Organization [facility] Address Unknown Phone Unavailable Allergies Medications Problems Procedures Results Encounters ACCT No. Visit Date/Time Discharge Status Pt. Type Provider Facility Loc./Unit Complaint [id number] 02/21/2013 16:20:11 02/21/2013 23: 59:59 CLS Outpatient Alex Mariscal [id number] 04/05/2017 11:08:36 04/05/2017 23: 59:59 CLS Outpatient Jessie Mock [id number] 03/30/2017 16:57:15 03/30/2017 23: 59:59 CLS Outpatient Yvonne Cassidy [id number] 03/24/2017 16:50:35 03/24/2017 23: 59:59 CLS Outpatient RiddelYvonne [id number] 03/15/2017 16:43:11 03/15/2017 23: 59:59 CLS Outpatient RiddelYvonne [id number] 03/08/2017 17:13:39 03/08/2017 23: 59:59 CLS Outpatient RidYvonne collins [id number] 03/01/2017 16:31:53 03/01/2017 23: 59:59 CLS Outpatient RiddelYvonne [id number] 02/23/2017 17:00:47 02/23/2017 23: 59:59 CLS Outpatient RidYvonne collins [id number] 02/17/2017 16:48:00 02/17/2017 23: 59:59 CLS Outpatient RiddelYvonne [id number] 02/09/2017 16:44:23 02/09/2017 23: 59:59 CLS Outpatient RiddelNeelYvonne [id number] 02/01/2017 16:47:46 02/01/2017 23: 59:59 CLS Outpatient RiddelYvonne [id number] 01/25/2017 16:15:32 01/25/2017 23: 59:59 CLS Outpatient RiddelYvonne [id number] 01/12/2017 16:37:36 01/12/2017 23: 59:59 CLS Outpatient RiddelYvonne [id number] 01/05/2017 16:32:08 01/05/2017 23: 59:59 CLS Outpatient Riddel, Yvonne [id number] 12/30/2016 16:20:07 12/30/2016 23: 59:59 CLS Outpatient Riddel, Yvonne [id number] 12/22/2016 16:27:00 12/22/2016 23: 59:59 CLS Outpatient Riddel, Yvonne [id number] 12/15/2016 15:56:23 12/15/2016 23: 59:59 CLS Outpatient Donte Hastings [id number] 12/08/2016 17:08:40 12/08/2016 23: 59:59 CLS Outpatient HastingsDonte [id number] 12/02/2016 17:00:46 12/02/2016 23: 59:59 CLS Outpatient Riddel, Yvonne [id number] 11/16/2016 17:22:30 11/16/2016 23: 59:59 CLS Outpatient Riddel, Yvonne [id number] 11/10/2016 17:18:58 11/10/2016 23: 59:59 CLS Outpatient Riddel, Yvonne [id number] 11/02/2016 17:14:22 11/02/2016 23: 59:59 CLS Outpatient Hastings Donte [id number] 10/28/2016 16:58:28 10/28/2016 23: 59:59 CLS Outpatient Riddel, Yvonne [id number] 10/08/2016 09:07:27 10/08/2016 23: 59:59 CLS Outpatient Riddel, Yvonne [id number] 09/15/2016 17:09:17 09/15/2016 23: 59:59 CLS Outpatient Edin Francisco J [id number] 09/08/2016 16:57:22 09/08/2016 23: 59:59 CLS Outpatient Edin Francisco J [id number] 09/02/2016 17:10:43 09/02/2016 23: 59:59 CLS Outpatient Riddel, Yvonne [id number] 08/25/2016 16:22:36 08/25/2016 23: 59:59 CLS Outpatient Riddel, Yvonne [id number] 08/19/2016 16:38:43 08/19/2016 23: 59:59 CLS Outpatient Riddel, Yvonne [id number] 08/13/2016 16:20:29 08/13/2016 23: 59:59 CLS Outpatient Riddel, Yvonne [id number] 08/06/2016 10:36:07 08/06/2016 23: 59:59 CLS Outpatient Darin Park Glenn [id number] 08/04/2016 16:02:46 08/04/2016 23: 59:59 CLS Outpatient Riddel, Yvonne [id number] 07/29/2016 15:14:43 07/29/2016 23: 59:59 CLS Outpatient Riddel, Yvonne [id number] 07/14/2016 15:11:58 07/14/2016 23: 59:59 CLS Outpatient HastingsDonte [id number] 07/06/2016 14:57:07 07/06/2016 23: 59:59 CLS Outpatient Riddel, Yvonne [id number] 06/29/2016 16:19:25 06/29/2016 23: 59:59 CLS Outpatient Riddel, Yvonne [id number] 06/24/2016 16:24:31 06/24/2016 23: 59:59 CLS Outpatient Riddel, Yvonne [id number] 06/16/2016 09:56:26 06/16/2016 23: 59:59 CLS Outpatient Riddel, Yvonne [id number] 06/09/2016 16:35:06 06/09/2016 23: 59:59 CLS Outpatient Riddel, Yvonne [id number] 06/02/2016 16:30:56 06/02/2016 23: 59:59 CLS Outpatient Karolyn Millan [id number] 06/01/2016 16:33:31 06/01/2016 23: 59:59 CLS Outpatient Riddel, Yvonne [id number] 05/27/2016 16:43:15 05/27/2016 23: 59:59 CLS Outpatient Riddel, Yvonne [id number] 05/11/2016 16:30:04 05/11/2016 23: 59:59 CLS Outpatient Riddel, Yvonne [id number] 05/05/2016 16:26:34 05/05/2016 23: 59:59 CLS Outpatient Riddel, Yvonne [id number] 04/29/2016 17:00:09 04/29/2016 23: 59:59 CLS Outpatient Riddel, Yvonne [id number] 04/23/2016 14:58:01 04/23/2016 23: 59:59 CLS Outpatient Jessie Mock [id number] 04/13/2016 17:18:46 04/13/2016 23: 59:59 CLS Outpatient Riddel, Yvonne [id number] 04/07/2016 16:32:05 04/07/2016 23: 59:59 CLS Outpatient Riddel, Yvonne [id number] 04/01/2016 10:41:06 04/01/2016 23: 59:59 CLS Outpatient Walker, Jessie [id number] 03/26/2016 17:19:19 03/26/2016 23: 59:59 CLS Outpatient Riddel, Yvonne [id number] 03/17/2016 17:08:17 03/17/2016 23: 59:59 CLS Outpatient Riddel, Yvonne [id number] 03/11/2016 16:57:25 03/11/2016 23: 59:59 CLS Outpatient Riddel, Yvonne [id number] 03/04/2016 15:39:33 03/04/2016 23: 59:59 CLS Outpatient Walker, Jessie [id number] 03/02/2016 16:53:20 03/02/2016 23: 59:59 CLS Outpatient Riddel, Yvonne [id number] 02/19/2016 16:54:05 02/19/2016 23: 59:59 CLS Outpatient Riddel, Yvonne [id number] 02/12/2016 15:50:07 02/12/2016 23: 59:59 CLS Outpatient Walker, Jessie [id number] 02/03/2016 17:01:33 02/03/2016 23: 59:59 CLS Outpatient Riddel, Yvonne [id number] 01/27/2016 16:46:32 01/27/2016 23: 59:59 CLS Outpatient Riddel, Yvonne [id number] 01/15/2016 16:47:38 01/15/2016 23: 59:59 CLS Outpatient Riddel, Yvonne [id number] 01/08/2016 16:15:01 01/08/2016 23: 59:59 CLS Outpatient WalkerJessie [id number] 10/15/2015 16:25:47 10/15/2015 23: 59:59 CLS Outpatient Francisco J Jesus [id number] 10/09/2015 16:30:47 10/09/2015 23: 59:59 CLS Outpatient VicentelainaGlenn [id number] 10/02/2015 16:17:46 10/02/2015 23: 59:59 CLS Outpatient April Atkinson [id number] 10/01/2015 16:32:32 10/01/2015 23: 59:59 CLS Outpatient WalkerJessie [id number] 09/11/2015 16:54:48 09/11/2015 23: 59:59 CLS Outpatient Riddel, Yvonne [id number] 09/05/2015 16:30:19 09/05/2015 23: 59:59 CLS Outpatient Riddel, Yvonne [id number] 08/19/2015 16:27:50 08/19/2015 23: 59:59 CLS Outpatient Riddel, Yvonne [id number] 08/14/2015 17:01:16 08/14/2015 23: 59:59 CLS Outpatient Riddel, Yvonne [id number] 07/29/2015 16:16:32 07/29/2015 23: 59:59 CLS Outpatient Riddel, Yvonne [id number] 07/22/2015 16:54:06 07/22/2015 23: 59:59 CLS Outpatient Riddel, Yvonne [id number] 07/09/2015 16:34:57 07/09/2015 23: 59:59 CLS Outpatient Riddel, Yvonne [id number] 07/01/2015 17:29:29 07/01/2015 23: 59:59 CLS Outpatient Riddel, Yvonne [id number] 06/26/2015 16:30:24 06/26/2015 23: 59:59 CLS Outpatient Riddel, Yvonne [id number] 06/17/2015 16:57:59 06/17/2015 23: 59:59 CLS Outpatient Riddel, Yvonne [id number] 06/10/2015 16:50:12 06/10/2015 23: 59:59 CLS Outpatient Riddel, Yvonne [id number] 06/04/2015 16:35:37 06/04/2015 23: 59:59 CLS Outpatient Riddel, Yvonne [id number] 05/31/2015 13:08:32 05/31/2015 23: 59:59 CLS Outpatient XavierDarin davila [id number] 05/29/2015 16:07:49 05/29/2015 23: 59:59 CLS Outpatient Karolyn Millan [id number] 05/29/2015 15:39:44 05/29/2015 23: 59:59 CLS Outpatient Riddel, Yvonne [id number] 05/14/2015 16:21:03 05/14/2015 23: 59:59 CLS Outpatient Francisco J Jesus [id number] 05/09/2015 15:57:08 05/09/2015 23: 59:59 CLS Outpatient RiddelYvonne [id number] 04/30/2015 17:05:12 04/30/2015 23: 59:59 CLS Outpatient RiddelYvonne [id number] 04/18/2015 15:26:57 04/18/2015 23: 59:59 CLS Outpatient Nidia Darby [id number] 04/09/2015 15:28:13 04/09/2015 23: 59:59 CLS Outpatient RiddelYvonne [id number] 04/01/2015 16:57:31 04/01/2015 23: 59:59 CLS Outpatient RiddelYvonne [id number] 03/27/2015 17:12:20 03/27/2015 23: 59:59 CLS Outpatient Cody Horvath [id number] 03/19/2015 16:49:22 03/19/2015 23: 59:59 CLS Outpatient RiddelYvonne [id number] 03/19/2015 16:30:07 03/19/2015 23: 59:59 CLS Outpatient Nidia Darby [id number] 03/04/2015 16:53:26 03/04/2015 23: 59:59 CLS Outpatient RiddelYvonne [id number] 02/25/2015 22:35:04 02/25/2015 23: 59:59 CLS Outpatient RiddelYvonne [id number] 02/25/2015 22:30:15 02/25/2015 23: 59:59 CLS Outpatient RiddelYvonne [id number] 02/25/2015 22:24:34 02/25/2015 23: 59:59 CLS Outpatient RiddelYvonne [id number] 02/25/2015 22:19:23 02/25/2015 23: 59:59 CLS Outpatient Riddel, Yvonne [id number] 02/25/2015 22:14:40 02/25/2015 23: 59:59 CLS Outpatient Riddel, Yvonne [id number] 02/25/2015 22:10:09 02/25/2015 23: 59:59 CLS Outpatient Riddel, Yvonne [id number] 02/25/2015 22:07:13 02/25/2015 23: 59:59 CLS Outpatient Riddel, Yvonne [id number] 02/25/2015 22:07:13 02/25/2015 23: 59:59 CLS Outpatient Darin Park [id number] 02/25/2015 22:01:05 02/25/2015 23: 59:59 CLS Outpatient Riddel, Yvonne [id number] 02/25/2015 21:55:39 02/25/2015 23: 59:59 CLS Outpatient Karolyn Millan [id number] 02/25/2015 21:55:33 02/25/2015 23: 59:59 CLS Outpatient Riddel, Yvonne [id number] 02/25/2015 21:51:03 02/25/2015 23: 59:59 CLS Outpatient Riddel, Yvonne [id number] 02/25/2015 21:46:35 02/25/2015 23: 59:59 CLS Outpatient Riddel, Yvonne [id number] 02/25/2015 21:44:04 02/25/2015 23: 59:59 CLS Outpatient Riddel, Yvonne [id number] 02/25/2015 21:27:24 02/25/2015 23: 59:59 CLS Outpatient Riddel, Yvonne [id number] 11/19/2014 17:25:13 11/19/2014 23: 59:59 CLS Outpatient Riddel, Yvonne [id number] 11/12/2014 17:06:59 11/12/2014 23: 59:59 CLS Outpatient Riddel, Yvonne [id number] 11/05/2014 17:27:19 11/05/2014 23: 59:59 CLS Outpatient Riddel, Yvonne [id number] 10/29/2014 17:23:26 10/29/2014 23: 59:59 CLS Outpatient Riddel, Yvonne [id number] 10/24/2014 16:20:38 10/24/2014 23: 59:59 CLS Outpatient Riddel, Yvonne [id number] 10/15/2014 17:01:02 10/15/2014 23: 59:59 CLS Outpatient Riddel, Yvonne [id number] 10/11/2014 16:25:09 10/11/2014 23: 59:59 CLS Outpatient Karolyn Millan [id number] 10/09/2014 16:41:37 10/09/2014 23: 59:59 CLS Outpatient Riddel, Yvonne [id number] 08/23/2014 16:59:28 08/23/2014 23: 59:59 CLS Outpatient Riddel, Yvonne [id number] 08/16/2014 16:39:26 08/16/2014 23: 59:59 CLS Outpatient Riddel, Yvonne [id number] 08/07/2014 17:11:32 08/07/2014 23: 59:59 CLS Outpatient RiddelYvonne [id number] 08/01/2014 16:39:21 08/01/2014 23: 59:59 CLS Outpatient Jessie Mock [id number] 07/25/2014 16:59:16 07/25/2014 23: 59:59 CLS Outpatient Nidia Darby [id number] 07/16/2014 16:50:39 07/16/2014 23: 59:59 CLS Outpatient RiddelYvonne [id number] 07/09/2014 16:24:19 07/09/2014 23: 59:59 CLS Outpatient Riddel, Yvonne [id number] 07/03/2014 17:15:01 07/03/2014 23: 59:59 CLS Outpatient RiddelYvonne [id number] 06/28/2014 17:47:34 06/28/2014 23: 59:59 CLS Outpatient RiddelYvonne [id number] 06/20/2014 16:30:39 06/20/2014 23: 59:59 CLS Outpatient RiddelYvonne [id number] 06/12/2014 16:47:47 06/12/2014 23: 59:59 CLS Outpatient RiddelNeelYvonne [id number] 05/30/2014 16:32:22 05/30/2014 23: 59:59 CLS Outpatient RiddelYvonne [id number] 05/21/2014 17:02:56 05/21/2014 23: 59:59 CLS Outpatient RiddelYvonne [id number] 05/15/2014 16:21:31 05/15/2014 23: 59:59 CLS Outpatient RiddelNeelYvonne [id number] 05/09/2014 16:21:38 05/09/2014 23: 59:59 CLS Outpatient Martha Sungjudit [id number] 05/08/2014 16:36:09 05/08/2014 23: 59:59 CLS Outpatient Riddel Yvonne [id number] 04/30/2014 16:29:38 04/30/2014 23: 59:59 CLS Outpatient Riddel, Yvonne [id number] 2014 16:50:35 2014 23: 59:59 CLS Outpatient RiddelNeelYvonne [id number] 04/10/2014 16:58:10 04/10/2014 23: 59:59 CLS Outpatient RiddelYvonne [id number] 04/02/2014 16:56:09 04/02/2014 23: 59:59 CLS Outpatient RidYvonne collins [id number] 03/26/2014 17:19:52 03/26/2014 23: 59:59 CLS Outpatient RidYvonne collins [id number] 03/20/2014 17:09:34 03/20/2014 23: 59:59 CLS Outpatient Jessie Mock [id number] 03/13/2014 16:53:42 03/13/2014 23: 59:59 CLS Outpatient Donte Hastings [id number] 03/07/2014 16:31:08 03/07/2014 23: 59:59 CLS Outpatient Yvonne Cassidy [id number] 02/27/2014 16:53:16 02/27/2014 23: 59:59 CLS Outpatient Jessie Mock [id number] 02/20/2014 17:23:55 02/20/2014 23: 59:59 CLS Outpatient Donte Hastings [id number] 02/13/2014 17:47:35 02/13/2014 23: 59:59 CLS Outpatient Joe Thomas [id number] 02/13/2014 16:16:40 02/13/2014 23: 59:59 CLS Outpatient HastingsDonte [id number] 02/07/2014 18:20:24 02/07/2014 23: 59:59 CLS Outpatient Joe Thomas [id number] 02/06/2014 16:25:55 02/06/2014 23: 59:59 CLS Outpatient Ange Yvonne [id number] 01/17/2014 16:25:58 01/17/2014 23: 59:59 CLS Outpatient Wilner Nidia Lauren [id number] 01/10/2014 17:43:57 01/10/2014 23: 59:59 CLS Outpatient Ridkarina Yvonne [id number] 01/02/2014 17:36:45 01/02/2014 23: 59:59 CLS Outpatient Riddel Yvonne [id number] 12/26/2013 16:57:51 12/26/2013 23: 59:59 CLS Outpatient Ridkarina Yvonne [id number] 12/18/2013 16:26:56 12/18/2013 23: 59:59 CLS Outpatient Riddel Yvonne [id number] 12/12/2013 16:39:07 12/12/2013 23: 59:59 CLS Outpatient RiddelYvonne [id number] 12/05/2013 16:29:41 12/05/2013 23: 59:59 CLS Outpatient RiddelYvonne [id number] 11/28/2013 17:29:28 11/28/2013 23: 59:59 CLS Outpatient RiddelYvonne [id number] 11/21/2013 16:22:23 11/21/2013 23: 59:59 CLS Outpatient RiddelYvonne [id number] 11/14/2013 16:35:05 11/14/2013 23: 59:59 CLS Outpatient RiddelYvonne [id number] 11/07/2013 16:25:06 11/07/2013 23: 59:59 CLS Outpatient Nidia Darby [id number] 10/31/2013 16:56:12 10/31/2013 23: 59:59 CLS Outpatient Nidia Darby [id number] 10/25/2013 16:15:31 10/25/2013 23: 59:59 CLS Outpatient Nidia Darby [id number] 10/18/2013 16:20:20 10/18/2013 23: 59:59 CLS Outpatient Nidia Darby [id number] 10/10/2013 16:55:14 10/10/2013 23: 59:59 CLS Outpatient RiddelYvonne [id number] 10/03/2013 16:41:05 10/03/2013 23: 59:59 CLS Outpatient RidYvonne collins [id number] 09/18/2013 10:48:07 09/18/2013 23: 59:59 CLS Outpatient RiddelYvonne [id number] 09/15/2013 11:47:22 09/15/2013 23: 59:59 CLS Outpatient RiddelYvonne [id number] 09/08/2013 13:58:38 09/08/2013 23: 59:59 CLS Outpatient Joe Thomas [id number] 09/05/2013 16:20:39 09/05/2013 23: 59:59 CLS Outpatient RiddelNeelYvonne [id number] 08/29/2013 16:15:57 08/29/2013 23: 59:59 CLS Outpatient Riddel, Yvonne [id number] 08/21/2013 17:12:05 08/21/2013 23: 59:59 CLS Outpatient Robinson Rodriguez [id number] 08/21/2013 16:57:56 08/21/2013 23: 59:59 CLS Outpatient Yvonne Cassidy [id number] 08/14/2013 17:36:48 08/14/2013 23: 59:59 CLS Outpatient Yvonne Cassidy [id number] 08/08/2013 16:29:35 08/08/2013 23: 59:59 CLS Outpatient Yvonne Cassidy [id number] 08/01/2013 16:16:04 08/01/2013 23: 59:59 CLS Outpatient Yvonne Cassidy [id number] 07/20/2013 16:37:27 07/20/2013 23: 59:59 CLS Outpatient Yvonne Cassidy
== END 2017-05-06 16:54 | disposition home or self-care (01) ==
LOC: EDUNIT# 13:36 → ER 13:38
DX: K21.9 Gastro-esophageal reflux disease without esophagitis (principal); E78.5 Hyperlipidemia, unspecified; Z82.49 Family history of ischemic heart disease and other diseases of the circulatory system; Z90.710 Acquired absence of both cervix and uterus
CPT/HCPCS: 36415; 71010; 80053; 81000; 83690; 83735; 83874; 84484; 85025; 85379; 85610; 85730; 93005; 93041; 96374